=== PATIENT | female | born 1950 | race Caucasian/White ===

== ENCOUNTER 2020-02-12 16:22 | IRF | payer MEDICARE, MEDICAID, SELFPAY ==
--- NOTE | ~2020-02-12 | XR_ITS ---
EXAMINATION: XR chest 1V portable DATE: 02/26/2020 03:57 INDICATION: Tachypnea. Fever. Leukocytosis. TECHNIQUE: A single frontal view of the chest was obtained. COMPARISON: Chest 2 views 02/25/2020, chest CT 02/19/2020 FINDINGS: There are airspace opacities in right mid and lower lung zones and left lower lung zone. Th ere is a small right pleural effusion. There is a prominent left paracardial fat pad. No pneumothorax . Cardiomegaly is noted. IMPRESSION: 1. Unchanged airspace opacities in right mid and lower lung zones and left lower lung zone, likely at electasis. Pneumonia is less likely. 2. Unchanged small right pleural effusion. 3. Cardiomegaly. Reviewed, dictated and finalized at location A. IMPRESSION: 1. Unchanged airspace opacities in right mid and lower lung zones and left lowe r lung zone, likely atelectasis. Pneumonia is less likely. 2. Unchanged small right pleural effusion. 3. Cardiomegaly.
--- NOTE | ~2020-02-12 | XR_ITS ---
EXAMINATION: XR chest 1V portable DATE: 02/17/2020 13:55 INDICATION: Chest pain and shortness of breath TECHNIQUE: frontal view of the chest was obtained. COMPARISON: CT dated 04/07/2008 FINDINGS: Elevation of the left hemidiaphragm with bandlike discoid atelectasis at the lateral left lower lung zone. No pulmonary edema, pleural effusion or pneumothorax. Cardiomediastinal silhouette is within no rmal limits for AP technique. There is pulmonary vascular congestion. Ovoid density cephalad to the r ight mainstem bronchus suggesting a dilated azygos vein although differential would include lymphaden opathy. IMPRESSION: 1. Discoid atelectasis at the left lung base with elevation of the left hemidiaphragm. 2. Inferior right paratracheal opacity which could represent a dilated azygos vein or enlarged lymph node which could be either reactive or metastatic. Correlate clinically for corresponding jugular wilfredo ous distention. If indicated CT could be obtained for more definitive determination. Reviewed, dictated and finalized at location A. IMPRESSION: 1. Discoid atelectasis at the left lung base with elevation of the left hemidia phragm. 2. Inferior right paratracheal opacity which could represent a dilated azygos v ein or enlarged lymph node which could be either reactive or metastatic. Correl ate clinically for corresponding jugular venous distention. If indicated CT cou ld be obtained for more definitive determination.
--- NOTE | ~2020-02-12 | CT_ITS ---
EXAMINATION: CT chest abdomen w con INDICATION: Abnormal chest x-ray TECHNIQUE: Computed tomographic images of the chest and abdomen were obtained after the administratio n of 100 cc of Omnipaque 350 intravenous contrast. The dose-length product (DLP) was 1277.70 mGy-cm. Automated exposure control and iterative reconstruction technique were employed. COMPARISON: None FINDINGS: CHEST: There are no pathologically enlarged thoracic lymph nodes. The azygos vein calcified the chest radiographic finding in question. There is a small right pleural effusion. There is passive atelecta sis of the lower lobes as well as subsegmental atelectasis of the left lower lobe which is seen on th e chest radiograph. Cardiomegaly is noted. There is calcified coronary artery atherosclerosis. ABDOMEN: Punctate calcifications in otherwise normal appearing liver and spleen likely represent heal ed granulomatous disease. The pancreas, gallbladder, and adrenal glands are normal. Cysts of the left kidney measure up to 5 cm. A 7 mm hypoattenuating lesion of the right kidney is too small to charact erize but likely represents a cyst. There are no pathologically enlarged abdominal lymph nodes. An en doluminal stent is noted in the right common iliac vein. There is liquid stool throughout much of the visualized colon. There is an age indeterminate burst fracture of T7. IMPRESSION: 1. Azygous vein accounting for the chest radiographic finding in question. 2. Small right pleural effusion. 3. Bilateral dependent atelectasis. 4. Cardiomegaly. 5. Age-indeterminate T7 burst fracture. 6. Liquid stool in the colon suggestive of diarrhea. Reviewed, dictated and finalized at location A.
--- NOTE | ~2020-02-12 | XR_ITS ---
EXAMINATION: XR abdomen obstructive series EXAM DATE: 02/25/2020 14:34 INDICATION: Bowel distention. TECHNIQUE: Frontal upright projection of the upper abdomen, frontal projection of the lower abdomen f or interpretation. Correlation is made to CT 08/21/2020. Correlation was made with CT chest abdomen .. FINDINGS: There is severely distended air-filled ascending and transverse colon, with only small amou nt of descending colon and sigmoid colonic gas. Probably interval increase in distention compared to the timber framer image from patient's CT scan on 02/19/2020. No evidence of free intraperitoneal gas. No orga nomegaly. No small bowel dilation. Right iliac stent. IMPRESSION: Some progression in now severely distended ascending ascending, transverse colons with sm all amount of descending colonic, sigmoid gas. Most likely colonic ileus correlating with CT scan. Reviewed, dictated and finalized at location A. IMPRESSION: Some progression in now severely distended ascending ascending, tra nsverse colons with small amount of descending colonic, sigmoid gas. Most likel y colonic ileus correlating with CT scan.
--- NOTE | ~2020-02-12 | XR_ITS ---
EXAMINATION: XR abdomen obstructive series DATE: 02/26/2020 09:15 INDICATION: Bowel distention. TECHNIQUE: Upright and supine views of the abdomen on 4 radiographs were obtained. COMPARISON: CT abdomen and pelvis 02/19/2020, abdomen radiographs 02/25/2020 FINDINGS: There is gaseous distention of the colon. There are no dilated loops of small bowel. There is a stent in right common iliac vein. No free intraperitoneal gas. Cardiomegaly is noted. IMPRESSION: 1. Persistent gaseous distention of the colon, likely adynamic ileus. Reviewed, dictated and finalized at location A.
--- NOTE | ~2020-02-12 | XR_ITS ---
XR chest 2V DATE: 02/25/2020 11:29 INDICATION: Shortness of breath TECHNIQUE: AP and lateral views. The lateral view is limited due to inability to raise the left arm COMPARISON: 02/19/2020 CT thorax FINDINGS: Cardiomegaly. Mild right pleural effusion. There is mild infiltrate or atelectasis in the r ight mid and both lower lung zones. The fissures appear prominent pulmonary vascularity however appea rs within normal limits. There is probably gaseous distention of the transverse colon and flexures. Diffuse osteopenia. Old right surgical neck humeral healed fracture. IMPRESSION: Cardiomegaly Mild infiltrates or atelectasis in right mid and both lower lung zones. Small right pleural effusion Reviewed, dictated and finalized at location A. IMPRESSION: Cardiomegaly Mild infiltrates or atelectasis in right mid and both lower lung zones. Small r ight pleural effusion
[2020-02-12 16:45] VITALS: BP 134/72; PULSE 112; RESP 20; TEMP 36.9; O2SAT 100
--- NOTE | 2020-02-12 17:13 | PC.NURSE ---
This patient, Trina Larkin, was admitted to [facility] Room 220-01. Patient/family oriented to hospital policies and general routines including ID bracelet, bed and alarms, visiting hours, pain management, procedures, bathroom and other care routines, personal items, smoking policy, room service/diet, and visiting hours. Valuables list has been completed. Information on how to activate the Rapid Response Team has been discussed. Patient/Family are encouraged to report perceived risks to care and to ask questions if they do not understand what they are told or what they should do.
--- NOTE | 2020-02-12 17:14 | PC.NURSE ---
Dr Bhat notified of admission. Meds and previous instructions/orders reviewed with him. I advised of purulent drainage from right antecubital fossa (appears to be previous IV site). Orders received.
[2020-02-12] MEDS: NEOMYCIN/POLYMYXIN/BACITRACIN OINTMENT 15 GM TUBE 1 APPLIC TOPICAL (18:05)
[2020-02-12 18:33] VITALS: BMI 51.5
[2020-02-12 21:00] VITALS: PULSE 116
[2020-02-12] MEDS: SIMVASTATIN 20 MG TABLET PO (21:00)
[2020-02-12] MEDS: METOPROLOL TARTRATE 12.5 MG TABLET PO (21:00)
[2020-02-12 22:00] VITALS: BP 126/73; PULSE 116; RESP 20; TEMP 37.4; O2SAT 98
[2020-02-12 23:00] VITALS: PULSE 120
[2020-02-13 06:00] VITALS: BP 129/79; PULSE 116; RESP 20; TEMP 36.9; O2SAT 95
[2020-02-13 06:29] LABS: Blood Urea Nitrogen 14 mg/dL (7-17); Calcium 8.5 mg/dL (8.4-10.2); Carbon Dioxide 30 mmol/L (22-30); Chloride 98 mmol/L (98-107); Estimated CRCL calculation 76 ml/min; Estimated Glomerular Filt Rate > 60; Glucose 115 mg/dL (65-105); Potassium 4.9 mmol/L (3.4-5.0); Sodium 130 mmol/L (137-145)
[2020-02-13 09:47] VITALS: PULSE 116
[2020-02-13] MEDS: FUROSEMIDE 10 MG TABLET PO (09:47)
[2020-02-13] MEDS: FERROUS SULFATE 324 MG TABLET PO (09:47)
[2020-02-13] MEDS: CHOLECALCIFEROL 1,000 UNIT TABLET 1000 UNITS PO (09:47)
[2020-02-13] MEDS: METOPROLOL TARTRATE 12.5 MG TABLET PO ×2 (09:47→20:32)
[2020-02-13] MEDS: NEOMYCIN/POLYMYXIN/BACITRACIN OINTMENT 15 GM TUBE 1 APPLIC TOPICAL ×2 (09:49→17:04)
[2020-02-13] MEDS: polyethylene glycoL 3350 17 GM POWD.PACK PO (09:49)
[2020-02-13] MEDS: APIXABAN 5 MG TABLET PO ×2 (09:49→17:03)
--- NOTE | 2020-02-13 11:10 | WPDREHABHP ---
H&P: HPI History of Present Illness Chief complaint: T6 fx/ L4 fx/ left humerus fx Narrative: Trina Larkin is a 69 year old female HISTORY OF PRESENT ILLNESS: The patient's primary rehab impairment category is major multiple trauma without brain or spinal injury The etiologic diagnosis is comminuted left humerus fracture, T6 compression fracture, L4 compression fracture I saw this patient [id number] on February 13, 2020 at 9:38 a.m. The patient is a 69-year-old right-handed woman with a past medical history of congestive heart failure, hypertension, deep venous thrombosis and atrial fibrillation along with the venous stasis changes of the right lower extremity for many many years who presented to [facility] on February 07, 2020 after suffering a fall from standing. Imaging demonstrated a left humerus fracture and T6 fracture. She was transferred to [facility] the same day for further evaluation and management. Orthopedic surgery and Neurosurgery were consulted. Neurosurgery was consulted for the spinal fractures and recommended no acute surgical intervention on order a TLSO brace to be worn when out of bed. She is to follow up with the physician in 6 weeks with repeat x-ray of her thoracic spine. Orthopedic surgery was consult for the left humerus fracture and also recommended no acute surgical intervention. She was made nonweightbearing to the left upper extremity to the extent that she should not move on the shoulder area and also was given a sling for comfort she is to follow up with the orthopedic physician 2 weeks in the [facility] ortho [facility] clinic ( this appointment has not been made at present closed). Generating Medicine was consulted to review reason for fall and attributed the fall to over diuresis. The wound nurse was consulted for the right lower extremity venous stasis dermatitis and recommended a treatment plan ( this is noted in the status section of the screen close) the patient is discharged to us on Eliquis for DVT prophylaxis Therapy was initiated at the acute care facility and the patient transferred to us from [facility] on February 12, 2020 on FALLS OR SURGERIES: The patient has had major surgeries in the 100 days prior to admission ( ventral hernia repair on December 26, 2019 ) closed.. They had falls in the past year. They had falls with injury in the past year. PAST MEDICAL HISTORY: DVT, hypertension, hypercholesterolemia, obesity, congestive heart failure, atrial fibrillation. PAST SURGICAL HISTORY: Ventral hernia repair about a month ago SOCIAL HISTORY: the patient lives with her adult son in a 1 level home with 4 steps to enter. She was independent with driving prior. She uses no assistive device. Her son is available to assist her following rehab if necessary. She has never a smoker no alcohol or drug use FAMILY HISTORY: father with diabetes type 2 PRIOR LEVEL OF FUNCTION: Eating was INDEPENDENT Oral Care was INDEPENDENT Toileting Hygiene was INDEPENDENT Shower/Bathing was INDEPENDENT Upper Body Dressing was INDEPENDENT Lower Body Dressing was INDEPENDENT Donning/[place] Footwear was INDEPENDENT Rolling Left and Right was INDEPENDENT Sit to Lying was INDEPENDENT Lying to Sitting was INDEPENDENT Sit to Stand was INDEPENDENT Bed to Chair Transfers was INDEPENDENT Toilet Transfers was INDEPENDENT Walking was INDEPENDENT >500 feet with NO DEVICE Wheelchair Mobility was NOT APPLICABLE PRIOR TO ADMISSION Stairs were INDEPENDENT CURRENT LEVEL OF FUNCTION: Eating was independent Oral Care was supervision or touches stents Toileting Hygiene was substantial/maximal assistance Shower/Bathing was substantial/maximal assist Upper Body Dressing was partial/moderate assistance Lower Body Dressing was substantial/maximal assistance Donning/[place] Footwear was substantial maximal assistance Rolling Left and Right was
[2020-02-13 11:50] VITALS: BMI 51.5
[2020-02-13 13:03] LABS: Basophils Percent Auto 0.2 % (0.2-1.2); Eosinophils Absolute Auto 0.1 K/mm3 (0-0.3); Eosinophils Percent Auto 0.8 % (0-4.4); Hematocrit 35.9 % (37.0-47.0); Hemoglobin 10.3 g/dL (12.0-15.0); Immature Granulocyte Absolute 0.04 K/mm3 (0.00-0.031); Immature Granulocyte Percent A 0.6 % (0-0.5); Lymphocytes Absolute Auto 0.72 K/mm3 (0.9-3.2); Lymphocytes Percent Auto 11.2 % (18.3-44.2); Mean Corpuscular HGB Conc 28.7 g/dl (32-36); Mean Corpuscular Hemoglobin 28.2 pg (26-34); Mean Corpuscular Volume 98.4 fl (80-100); Mean Platelet Volume 9.6 fl (7.4-10.4); Monocytes Absolute Auto 0.8 K/mm3 (0.1-0.6); Monocytes Percent Auto 12.6 % (2.6-8.5); Neutrophils Absolute Auto 4.8 K/mm3 (1.3-6.7); Neutrophils Percent Auto 74.6 % (45.5-73.1); Platelet Count Result 236 k/mm3 (150-375); Red Blood Count 3.65 M/mm3 (4.2-5.4); White Blood Count 6.4 K/mm3 (4.5-10.0)
[2020-02-13 14:00] VITALS: BP 123/57; PULSE 119; RESP 20; TEMP 37.6; O2SAT 98
--- NOTE | 2020-02-13 14:33 | PC.NURSE ---
Noted temperature elevation of 100.4. Call placed to Dr Roger to advise . Patient denies SOB/chest pain, cough, or being exposed to anyone with flu or suspected COVID 19. Noted wound culture results from right antecubital taken on admission. Will report to Rajeev Carrasco when he calls back.
[2020-02-13] MEDS: FLUCONAZOLE 100 MG TABLET PO (14:42)
[2020-02-13] MEDS: TOLNAFTATE 1% POWDER 45 GM BTL 1 APPLIC TOPICAL ×2 (14:42→20:31)
--- NOTE | 2020-02-13 14:45 | PC.NURSE ---
Dr Roger returned call and status report given including wound culture results and elevated temp off 100.4 - orders.
[2020-02-13] MEDS: ACETAMINOPHEN 325 MG TABLET 650 MG PO (15:01)
[2020-02-13] MEDS: LINEZOLID 600 MG TABLET PO ×2 (15:12→20:32)
[2020-02-13 16:57] VITALS: TEMP 37.7
--- NOTE | 2020-02-13 19:36 | PC.NURSE ---
put antifungal cream on right lower leg and mepilex transfer on non scabbed suhail which took 2 sheets. Then wrapped in loose 4 inch odilon gauze over mepilex transfer shhets cut to shape. Patient tolerated well.
[2020-02-13 20:32] VITALS: PULSE 112
[2020-02-13] MEDS: SIMVASTATIN 20 MG TABLET PO (20:32)
[2020-02-13 22:00] VITALS: BP 138/67; PULSE 86; RESP 19; TEMP 36.4; O2SAT 97
[2020-02-14 02:00] VITALS: TEMP 37.1
[2020-02-14 05:09] LABS: Basophils Percent Auto 0.5 % (0.2-1.2); Eosinophils Absolute Auto 0.2 K/mm3 (0-0.3); Eosinophils Percent Auto 2.7 % (0-4.4); Hematocrit 30.4 % (37.0-47.0); Immature Granulocyte Absolute 0.02 K/mm3 (0.00-0.031); Immature Granulocyte Percent A 0.3 % (0-0.5); Lymphocytes Percent Auto 22.1 % (18.3-44.2); Mean Corpuscular HGB Conc 29.6 g/dl (32-36); Mean Corpuscular Hemoglobin 27.9 pg (26-34); Mean Corpuscular Volume 94.1 fl (80-100); Mean Platelet Volume 9.9 fl (7.4-10.4); Monocytes Absolute Auto 1.2 K/mm3 (0.1-0.6); Monocytes Percent Auto 20.8 % (2.6-8.5); Neutrophils Absolute Auto 3.1 K/mm3 (1.3-6.7); Neutrophils Percent Auto 53.6 % (45.5-73.1); Platelet Count Result 237 k/mm3 (150-375); Red Blood Count 3.23 M/mm3 (4.2-5.4); White Blood Count 5.9 K/mm3 (4.5-10.0)
[2020-02-14 06:00] VITALS: BP 116/57; PULSE 83; RESP 19; TEMP 36.5; O2SAT 97
[2020-02-14 06:38] LABS: Anisocytosis 1+ (NORMAL); Platelet Estimate Adequate (Adequate)
[2020-02-14] MEDS: APIXABAN 5 MG TABLET PO ×2 (08:35→19:24)
[2020-02-14 08:36] VITALS: PULSE 83
[2020-02-14] MEDS: CHOLECALCIFEROL 1,000 UNIT TABLET 1000 UNITS PO (08:36)
[2020-02-14] MEDS: LINEZOLID 600 MG TABLET PO ×2 (08:36→20:07)
[2020-02-14] MEDS: METOPROLOL TARTRATE 12.5 MG TABLET PO ×2 (08:36→20:04)
[2020-02-14] MEDS: FLUCONAZOLE 100 MG TABLET PO (08:36)
[2020-02-14] MEDS: FERROUS SULFATE 324 MG TABLET PO (08:36)
[2020-02-14] MEDS: FUROSEMIDE 10 MG TABLET PO (08:36)
[2020-02-14] MEDS: polyethylene glycoL 3350 17 GM POWD.PACK PO (08:37)
--- NOTE | 2020-02-14 11:46 | WPDNEURORHBP ---
Subjective Date/time seen: 02/14/20 11:46 Interval history: This 69-year-old woman is here because of major multiple trauma without brain or spinal injury. She has left-sided comminuted humerus fracture for which she is in the sling T6 compression fracture, L4 compression fracture for which she is in TLSO next Patient also has significant cardiac history including congestive heart failure hypertension deep venous thrombosis in atrial fibrillation for which she is on anticoagulation. The patient had low-grade temperature yesterday and apparently the etiology is a little fussy discharge at the right antecubital fossa where the IV line was and we have started him on a Zyvox she is also on Diflucan as per recommendation of the wound care nurse for the long-standing venous status insufficiency of the right lower extremity dermatitis and doing fairly well she denies any fever chills sore throat headache nausea vomiting shortness of breath Review of Systems Review of Systems: All systems reviewed & are unremarkable except as noted in HPI and below Functional Status Ambulation Ability Ability to Ambulate 10 Feet: Minimum Assistance X 1 Ability to Ambulate 50 Feet With 2 Turns: Minimum Assistance X 1 Ability to Ambulate 150 Feet: Minimum Assistance X 1 Ambulation Assistive Devices: Hand Hold Transfers Ability Ability to Transfer In/Out of Chair: Minimum Assistance X 1 Exam Const: General: comfortable and no acute distress HENMT: General nose exam: Normal nares present Mouth: Yes moist mucous membranes Eyes: General: appearance normal, both eyes and all related structures Neck: Neck: supple and no JVD Resp: Effort & Inspection: normal respiratory effort Auscultation: clear to auscultation bilaterally Cardio: Rate: regular rate Rhythm: regular rhythm GI: GI Palp: Yes Soft to palpation Auscultation: normal bowel sounds Skin: General skin exam: normal color and no rashes or lesions noted Neuro: Other: patient is awake alert and well oriented time place and person has a normal speech and language function normal cranial examination the limitation of the left upper extremities clearly noted due to humerus fracture she has difficulty performing the activities of daily living due to significant obesity multiple fractures and Extrem: General: normal to inspection Psych: Mental Status: mental status grossly normal Objective Data Vital Signs Vital Signs: Vital Signs - 24 hr 02/13/20 14:00 02/13/20 16:57 02/13/20 20:32 Temperature 37.6 C 37.7 C H Pulse Rate 119 H 112 H Respiratory Rate 20 Blood Pressure 123/57 L Pulse Oximetry 98 02/13/20 22:00 02/14/20 02:00 02/14/20 06:00 Temperature 36.4 C L 37.1 C 36.5 C Pulse Rate 86 83 Respiratory Rate 19 19 Blood Pressure 138/67 116/57 L Pulse Oximetry 97 97 02/14/20 08:36 Temperature Pulse Rate 83 Respiratory Rate Blood Pressure Pulse Oximetry Intake/Output Intake/Output: Intake & Output 02/11/20 02/12/20 02/13/20 02/14/20 23:59 23:59 23:59 23:59 Intake Total 240 720 480 Balance 240 720 480 Meds/Results Medications: Active Medications Generic Name Dose Route Start Last Admin Trade Name Freq PRN Reason Stop Dose Admin Acetaminophen 650 mg 02/13/20 14:44 02/13/20 15:01 Tylenol Tablet PO 650 mg Q4H PRN Administration Fever >101 Hydrocodone Bitart/Acetaminophen 1 tab 02/12/20 17:50 02/14/20 11:16 [place] 5-325 Mg PO 1 tab Q4H PRN Administration Pain Albuterol 2 puff 02/12/20 18:35 Proventil Hfa INHALATION Q6H PRN Shortness Of Breath Apixaban 5 mg 02/13/20 09:00 02/14/20 08:35 Eliquis PO 5 mg BID DEWAYNE Administration Ferrous Sulfate 324 mg 02/13/20 09:00 02/14/20 08:36 Ferrous Sulfate PO 324 mg DAILY DEWAYNE Administration Fluconazole 100 mg 02/13/20 09:00 02/14/20 08:36 Diflucan Tablet PO 02/26/20 09:01 100 mg QAM DEWAYNE Administration Furosemide 10 mg 01/21
[2020-02-14 14:00] VITALS: BP 137/93; PULSE 76; RESP 20; TEMP 36.7; O2SAT 95
--- NOTE | 2020-02-14 16:18 | RPD ---
INDIVIDUALIZED PLAN OF CARE FOR Trina Larkin Brief Synthesis of Pre-Admission Screen, Post-Admission Evaluation and Therapy Evaluations: The patient presents to rehab with Major Multiple Trauma Without Brain or Spinal Injury-Comminuted left humerus fracture, T6 compression fracture, L4 compression fracture. Comorbidities include Hypertension, deep venous thrombosis, hypercholesterolemia, obesity, atrial fibrillation, acute pain, congestive heart failure, BLE edema, right lower extremity venous stasis dermatitis, coccyx pressure ulcer stage 1, excoriation to folds. The patient requires physician services for medical oversight, management of postop complications in setting of present comorbidities, and pain management. Labs will be drawn to monitor blood counts and electrolytes periodically. The patient requires nursing services for DVT prophylactics, infection protection, medication management and education, pressure relief, and wound care. Deficits include: ADLs, Balance, Endurance, Mobility, Pain Management, ROM, Safety, Strength, Transfers Potato [employer] Processing Supervisor/Case Management for: Discharge Planning and Patient/Family Counseling Physical Therapy: 5 days per week for 90 minutes. Treatments may include: Therapeutic Exercise, Gait Training, Neuromuscular Re-education, Transfer Training, Community Reintegration, Bed Mobility, Patient/Family Education, Wheelchair Mobility Group Therapy/Concurrent Therapy Rationales: -Improve attention span during functional activities in a distracted environment. -Enhance problem solving and/or adequate judgment skills during functional activities in a distracted environment. -Promote increased safety awareness in a distracted environment to reduce fall risk with functional tasks, transfers, and ambulation to allow a more safe, self-sufficient return to the home environment. -Improve dynamic balance skills to promote safety and independence with functional activities in a distracted environment for maximum gain. Occupational Therapy: 5 days per week for 90 minutes. Treatments may include: Therapeutic Exercise, Therapeutic Activity, Cognitive Training, Self-Care Transfer Training, Community Reintegration, Home Management, Patient/Family Education, Wheelchair Mobility Training, Energy Conservation Training Group Therapy/Concurrent Therapy Rationales: -Allow therapist to observe and teach generalization and carry-over of skills learned in individual therapy. -Enhance problem solving and sequencing skills during therapeutic activities in a distracted environment. -Promote increased safety awareness in a realistic setting to reduce fall risk with functional tasks due to visual and verbal distractions. -Increase functional level with ADLs, ADL transfers and use of adaptive equipment through therapeutic activities with others while promoting safety to allow a more safe, self-sufficient return home. Medical Prognosis: Good Anticipated Length of Stay: 12 days Rehab Goals: Eating Goal: 06-Independent Oral Hygiene Goal: 06-Independent Toileting Hygiene Goal: 02-Substantial/Maximal Assistance Shower/Bathe Self Goal: 03-Partial/Moderate Assistance Upper Body Dressing Goal: 02-Substantial/Maximal Assistance Lower Body Dressing Goal: 03-Partial/Moderate Assistance Putting On/Taking Off Footwear Goal: 03-Partial/Moderate Assistance Rolling Left and Right Goal: 06-Independent Sit to Lying Goal: 03-Partial/Moderate Assistance Lying to Sitting on Side of Bed Goal: 03-Partial/Moderate Assistance Sit to Stand Goal: 06-Independent Chair/Pwl-hb-Loovc Transfer Goal: 06-Independent Toilet Transfer Goal: 04-Supervision or Touching Assistance Car Transfer Goal: 06-Independent Walk 10' Goal: 06-Independent Walk 50' with Two Turns Goal: 06-Independent Walk 150' Goal: 06-Independent Walk 10' on Uneven Surface Goal: 06-Independent 1 Step (Curb) Goal: 06-Independent 4 Steps Goal: 06-Independent 12 Steps Goal Score: 06-Independent Picking Up Object Goa
[2020-02-14] MEDS: TOLNAFTATE 1% POWDER 45 GM BTL 1 APPLIC TOPICAL ×2 (19:25→20:10)
[2020-02-14] MEDS: NEOMYCIN/POLYMYXIN/BACITRACIN OINTMENT 15 GM TUBE 1 APPLIC TOPICAL ×2 (19:26→19:38)
--- NOTE | 2020-02-14 19:28 | PC.NURSE ---
all dressings changed at 14:30 but were charted late.
[2020-02-14 20:04] VITALS: PULSE 68
[2020-02-14] MEDS: SIMVASTATIN 20 MG TABLET PO (20:08)
[2020-02-14 21:36] VITALS: BP 107/59; PULSE 77; RESP 20; TEMP 36.5; O2SAT 100
[2020-02-15 06:00] VITALS: BP 139/80; PULSE 87; RESP 20; TEMP 36.7; O2SAT 99
[2020-02-15] MEDS: FUROSEMIDE 10 MG TABLET PO (08:55)
[2020-02-15] MEDS: APIXABAN 5 MG TABLET PO ×2 (08:55→18:02)
[2020-02-15] MEDS: FERROUS SULFATE 324 MG TABLET PO (08:55)
[2020-02-15] MEDS: FLUCONAZOLE 100 MG TABLET PO (08:55)
[2020-02-15] MEDS: CHOLECALCIFEROL 1,000 UNIT TABLET 1000 UNITS PO (08:55)
[2020-02-15] MEDS: LINEZOLID 600 MG TABLET PO (08:56)
[2020-02-15 08:57] VITALS: PULSE 87
[2020-02-15] MEDS: polyethylene glycoL 3350 17 GM POWD.PACK PO (08:57)
[2020-02-15] MEDS: METOPROLOL TARTRATE 12.5 MG TABLET PO ×2 (08:57→20:23)
[2020-02-15] MEDS: NEOMYCIN/POLYMYXIN/BACITRACIN OINTMENT 15 GM TUBE 1 APPLIC TOPICAL ×2 (08:58→18:02)
[2020-02-15] MEDS: TOLNAFTATE 1% POWDER 45 GM BTL 1 APPLIC TOPICAL ×2 (08:58→20:24)
--- NOTE | 2020-02-15 11:05 | WPDNEURORHBP ---
Subjective Date/time seen: 02/15/20 11:05 Interval history: This 69-year-old morbidly obese white woman is here on the acute rehab after having and left humeral fracture / T6 fracture / L4 fracture. Patient is not really any fever anymore she denies any fever chills sore throat nausea and vomiting she does have a longstanding venous stasis dermatitis of her right lower extremity for which the wound Care Nursing has recommended Diflucan for which she is on she also has a small cellulitic area at the right antecubital fossa for which is I walks is being given the culture is growing Staphylococcus and the sensitivity results are pending The patient pain is under control and she is doing very well in rehab without any new symptoms. Review of Systems Review of Systems: All systems reviewed & are unremarkable except as noted in HPI and below Functional Status Ambulation Ability Ability to Ambulate 10 Feet: Minimum Assistance X 1 Ability to Ambulate 50 Feet With 2 Turns: Minimum Assistance X 1 Ability to Ambulate 150 Feet: Minimum Assistance X 1 Ambulation Assistive Devices: Hand Hold Transfers Ability Ability to Transfer In/Out of Chair: Minimum Assistance X 1 Exam Const: General: comfortable and no acute distress HENMT: General nose exam: Normal nares present Mouth: Yes moist mucous membranes Eyes: General: appearance normal, both eyes and all related structures Neck: Neck: supple and no JVD Resp: Effort & Inspection: normal respiratory effort Auscultation: clear to auscultation bilaterally Cardio: Rate: regular rate Rhythm: regular rhythm GI: GI Palp: Yes Soft to palpation Auscultation: normal bowel sounds Skin: Other: The small cellulitic area at the right antecubital fossa is improving is well dressed and no significant drainage is noted Likewise the venous stasis dermatitis of the right lower extremity is stable and is being dressed daily Neuro: Other: patient's overall strength is improving she is awake alert will oriented to time place person has normal speech and language function normal cranial examination whatever disability she is having is the result of the nonweightbearing status of the left upper extremity due to humeral fracture and also T6 fracture and L4 fracture Extrem: General: normal to inspection Psych: Mental Status: mental status grossly normal Objective Data Vital Signs Vital Signs: Vital Signs - 24 hr 02/14/20 14:00 02/14/20 20:04 02/14/20 21:36 Temperature 36.7 C 36.5 C Pulse Rate 76 68 77 Respiratory Rate 20 20 Blood Pressure 137/93 H 107/59 L Pulse Oximetry 95 100 02/15/20 06:00 02/15/20 08:57 Temperature 36.7 C Pulse Rate 87 87 Respiratory Rate 20 Blood Pressure 139/80 Pulse Oximetry 99 Intake/Output Intake/Output: Intake & Output 02/12/20 02/13/20 02/14/20 02/15/20 23:59 23:59 23:59 23:59 Intake Total 240 720 960 360 Balance 240 720 960 360 Meds/Results Medications: Active Medications Generic Name Dose Route Start Last Admin Trade Name Freq PRN Reason Stop Dose Admin Acetaminophen 650 mg 02/13/20 14:44 02/13/20 15:01 Tylenol Tablet PO 650 mg Q4H PRN Administration Fever >101 Hydrocodone Bitart/Acetaminophen 1 tab 02/12/20 17:50 02/15/20 05:56 [place] 5-325 Mg PO 1 tab Q4H PRN Administration Pain Albuterol 2 puff 02/12/20 18:35 Proventil Hfa INHALATION Q6H PRN Shortness Of Breath Apixaban 5 mg 02/13/20 09:00 02/15/20 08:55 Eliquis PO 5 mg BID DEWAYNE Administration Ferrous Sulfate 324 mg 02/13/20 09:00 02/15/20 08:55 Ferrous Sulfate PO 324 mg DAILY DEWAYNE Administration Fluconazole 100 mg 02/13/20 09:00 02/15/20 08:55 Diflucan Tablet PO 02/26/20 09:01 100 mg QAM DEWAYNE Administration Furosemide 10 mg 02/13/20 09:00 02/15/20 08:55 Lasix Tablet PO 10 mg QAM DEWAYNE Administration Linezolid 600 mg 02/13/20 14:50 02/15/20 08:56 Zyvox PO 600 mg Q12HR DEWAYNE
[2020-02-15 14:00] VITALS: BP 136/99; PULSE 85; RESP 20; TEMP 36.9; O2SAT 99
[2020-02-15 20:23] VITALS: PULSE 80
[2020-02-15] MEDS: SIMVASTATIN 20 MG TABLET PO (20:23)
[2020-02-15 22:03] VITALS: BP 124/66; PULSE 80; RESP 18; TEMP 36.7; O2SAT 100
[2020-02-16 05:40] VITALS: BP 107/59; PULSE 106; RESP 20; O2SAT 95
[2020-02-16] MEDS: CHOLECALCIFEROL 1,000 UNIT TABLET 1000 UNITS PO (08:36)
[2020-02-16] MEDS: APIXABAN 5 MG TABLET PO ×2 (08:36→17:41)
[2020-02-16 08:37] VITALS: PULSE 106
[2020-02-16] MEDS: METOPROLOL TARTRATE 12.5 MG TABLET PO ×2 (08:37→20:06)
[2020-02-16] MEDS: FERROUS SULFATE 324 MG TABLET PO (08:37)
[2020-02-16] MEDS: FLUCONAZOLE 100 MG TABLET PO (08:37)
[2020-02-16] MEDS: FUROSEMIDE 10 MG TABLET PO (08:37)
[2020-02-16] MEDS: polyethylene glycoL 3350 17 GM POWD.PACK PO (08:38)
--- NOTE | 2020-02-16 12:54 | PCDIET ---
Nutrition Follow-Up Complete: Nutrition Diagnosis: Obesity related to history of excessive energy intake/inadequate energy expenditure as evidenced by BMI of 51.5. Nutrition Goal: Patient to consume 75% of meals. Goal met. Patient consuming 100% of most meals on heart healthy diet which is appropriate. Last recorded weight is 127.8 kg. Recommend obtaining new weight. Bowel Motility: Last bowel movement on 02/15/20 x 2. Labs Reviewed: Hgb (9.0), Hct (30.4) Meds Noted: Ferrous Sulfate, Lasix, Miralax, Vitamin D Additional Notes: Abdominal folds with maceration/yeast. No documented pressure ulcers. Will continue to monitor with same goal. Nutrition Monitoring and Evaluation: Follow up every 7 days.
[2020-02-16 14:00] VITALS: BP 118/60; PULSE 102; RESP 20; TEMP 36.6; O2SAT 97
[2020-02-16] MEDS: TOLNAFTATE 1% POWDER 45 GM BTL 1 APPLIC TOPICAL ×2 (15:47→20:06)
[2020-02-16] MEDS: NEOMYCIN/POLYMYXIN/BACITRACIN OINTMENT 15 GM TUBE 1 APPLIC TOPICAL ×2 (15:48→17:42)
--- NOTE | 2020-02-16 16:00 | WPDNEURORHBP ---
Subjective Date/time seen: 02/16/20 16:00 Interval history: this 69-year-old morbidly for his movement is admitted here with multiple fractures including the left humerus, T6 fracture, L4 fracture. She is wearing a sling of the left upper extremity and also wearing a TLSO she does not have any new specific complaints and quite happy with the care she is receiving particularly denies any headache nausea vomiting chest pain showed shortness of breath fever chills or sore throat Review of Systems Review of Systems: All systems reviewed & are unremarkable except as noted in HPI and below Functional Status Ambulation Ability Ability to Ambulate 10 Feet: Contact Guard Ability to Ambulate 50 Feet With 2 Turns: Contact Guard Ability to Ambulate 150 Feet: Minimum Assistance X 1 Ambulation Assistive Devices: Hand Hold Transfers Ability Ability to Transfer In/Out of Chair: Minimum Assistance X 1 Exam Const: General: comfortable and no acute distress HENMT: General nose exam: Normal nares present Mouth: Yes moist mucous membranes Eyes: General: appearance normal, both eyes and all related structures Neck: Neck: supple and no JVD Resp: Effort & Inspection: normal respiratory effort Auscultation: clear to auscultation bilaterally Cardio: Rate: regular rate Rhythm: regular rhythm GI: GI Palp: Yes Soft to palpation Auscultation: normal bowel sounds Skin: General skin exam: normal color and no rashes or lesions noted Neuro: Other: patient is awake May time present person is speech and language functions are normal cranial nerve examination is normal 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 doing 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 and engage in therapy no lateralizing focal or deficit is noted from neurological standpoint apart from the fact she does have fractures and limitation of the weight-bearing Extrem: General: normal to inspection Other: left upper extremity in sling Psych: Mental Status: mental status grossly normal Objective Data Vital Signs Vital Signs: Vital Signs - 24 hr 02/15/20 20:23 02/15/20 22:03 02/16/20 05:40 Temperature 36.7 C Pulse Rate 80 80 106 H Respiratory Rate 18 20 Blood Pressure 124/66 107/59 L Pulse Oximetry 100 95 02/16/20 08:37 02/16/20 14:00 Temperature 36.6 C Pulse Rate 106 H 102 H Respiratory Rate 20 Blood Pressure 118/60 Pulse Oximetry 97 Intake/Output Intake/Output: Intake & Output 02/13/20 02/14/20 02/15/20 02/16/20 23:59 23:59 23:59 23:59 Intake Total 956 379 4021 480 Balance 536 800 4443 480 Meds/Results Medications: Active Medications Generic Name Dose Route Start Last Admin Trade Name Freq PRN Reason Stop Dose Admin Acetaminophen 650 mg 02/13/20 14:44 02/13/20 15:01 Tylenol Tablet PO 650 mg Q4H PRN Administration Fever >101 Hydrocodone Bitart/Acetaminophen 1 tab 02/12/20 17:50 02/16/20 08:42 [place] 5-325 Mg PO 1 tab Q4H PRN Administration Pain Albuterol 2 puff 02/12/20 18:35 Proventil Hfa INHALATION Q6H PRN Shortness Of Breath Apixaban 5 mg 02/13/20 09:00 02/16/20 08:36 Eliquis PO 5 mg BID DEWAYNE Administration Ferrous Sulfate 324 mg 02/13/20 09:00 02/16/20 08:37 Ferrous Sulfate PO 324 mg DAILY DEWAYNE Administration Fluconazole 100 mg 02/13/20 09:00 02/16/20 08:37 Diflucan Tablet PO 02/26/20 09:01 100 mg QAM DEWAYNE Administration Furosemide 10 mg 02/13/20 09:00 02/16/20 08:37 Lasix Tablet PO 10 mg QAM DEWAYNE Administration Metoprolol Tartrate 12.5 mg 02/12/20 21:00 02/16/20 08:37 Lopressor PO 12.5 mg Q12HR DEWAYNE Administration Miconazole Nitrate 1 applic 02/13/20 21:00 02/16/20 15:48 [place]oe [place] TOPICAL 1 applic Q12HR DEWAYNE Administration Neomycin/Polymyxin/Bacitracin 1 applic 02/12/20 17:00 02/16/20 15:48 Triple Antibiotic Ointment TOPICAL 1 applic BID DEWAYNE Administration Polyethylene Glycol 17 gm 02/13/20 09:00 03
[2020-02-16 20:06] VITALS: PULSE 90
[2020-02-16] MEDS: SIMVASTATIN 20 MG TABLET PO (20:06)
[2020-02-16 22:00] VITALS: BP 128/72; PULSE 108; RESP 22; TEMP 36.3; O2SAT 96
[2020-02-17] VITALS (8 sets, daily range): BP systolic 121–148; BP diastolic 78–99; PULSE 84–112; RESP 20–22; TEMP 36.2–38; O2SAT 91–97
[2020-02-17] MEDS: ALBUTEROL SULFATE (*SP) AEROSOL 1 PUFF 2 PUFF INHALATION ×2 (05:08→21:20)
[2020-02-17] MEDS: FLUCONAZOLE 100 MG TABLET PO (08:15)
[2020-02-17] MEDS: CHOLECALCIFEROL 1,000 UNIT TABLET 1000 UNITS PO (08:15)
[2020-02-17] MEDS: FERROUS SULFATE 324 MG TABLET PO (08:15)
[2020-02-17] MEDS: FUROSEMIDE 10 MG TABLET PO (08:15)
[2020-02-17] MEDS: APIXABAN 5 MG TABLET PO ×2 (08:15→17:58)
[2020-02-17] MEDS: polyethylene glycoL 3350 17 GM POWD.PACK PO (08:16)
[2020-02-17] MEDS: METOPROLOL TARTRATE 12.5 MG TABLET PO ×2 (08:16→20:50)
[2020-02-17] MEDS: TOLNAFTATE 1% POWDER 45 GM BTL 1 APPLIC TOPICAL ×2 (08:16→20:47)
[2020-02-17] MEDS: NEOMYCIN/POLYMYXIN/BACITRACIN OINTMENT 15 GM TUBE 1 APPLIC TOPICAL ×2 (08:16→17:58)
--- NOTE | 2020-02-17 12:47 | WPDNEURORHBP ---
Subjective Date/time seen: multiple [id number]/28/20 12:47 Review of Systems Review of Systems: All systems reviewed & are unremarkable except as noted in HPI and below Functional Status Ambulation Ability Ability to Ambulate 10 Feet: Contact Guard Ability to Ambulate 50 Feet With 2 Turns: Contact Guard Ability to Ambulate 150 Feet: Minimum Assistance X 1 Ambulation Assistive Devices: Hand Hold Transfers Ability Ability to Transfer In/Out of Chair: Minimum Assistance X 1 Exam Const: General: comfortable HENMT: Head: normal to inspection and normocephalic Ears: hearing grossly normal bilaterally General nose exam: Normal external nose present Face and sinus: normal facial exam Mouth: Yes Normal oral and palatal mucosa present Eyes: General: appearance normal, both eyes and all related structures Neck: Neck: full ROM Resp: Effort & Inspection: normal respiratory effort Auscultation: clear to auscultation bilaterally Cardio: Rate: regular rate Rhythm: regular rhythm GI: Auscultation: normal bowel sounds Skin: General skin exam: no rashes or lesions noted Neuro: General: patient oriented x3, moves all extremities, no focal motor deficits and CN's II-XI intact bilaterally Cranial nerves: Yes CN's II-XII intact bilaterally, Yes Equal, round and reactive pupils present, Yes Nystagmus not present, Yes Normal facial strength present, Yes Midline tongue present, Yes Symmetric palate elevation present, Yes Normal hearing present and Yes Ability to bilaterally rotate head present Cognition (Neuro): normal cognition Speech: normal speech Deep tendon reflexes (DTR's): Right triceps reflex intensity grade: 1+, Left triceps reflex intensity grade: 1+, Rt Biceps (C5, C6): 1+, Left biceps reflex intensity grade: 1+, Right brachioradialis reflex intensity grade: 1+, Left brachioradialis reflex intensity grade: 1+, Right patellar reflex intensity grade: 1+, Left patellar reflex intensity grade: 1+, Right ankle reflex intensity grade: 1+ and Left ankle reflex intensity grade: 1+ Objective Data Vital Signs Vital Signs: Vital Signs - 24 hr 02/16/20 14:00 02/16/20 20:06 02/16/20 22:00 Temperature 36.6 C 36.3 C L Pulse Rate 102 H 90 108 H Respiratory Rate 20 22 H Blood Pressure 118/60 128/72 Pulse Oximetry 97 96 02/17/20 06:00 02/17/20 08:16 Temperature 36.5 C Pulse Rate 94 94 Respiratory Rate 22 H Blood Pressure 132/78 Pulse Oximetry 97 Intake/Output Intake/Output: Intake & Output 02/14/20 02/15/20 02/16/20 02/17/20 23:59 23:59 23:59 23:59 Intake Total 960 1080 720 120 Balance 960 1080 720 120 Meds/Results Medications: Active Medications Generic Name Dose Route Start Last Admin Trade Name Freq PRN Reason Stop Dose Admin Acetaminophen 650 mg 02/13/20 14:44 02/13/20 15:01 Tylenol Tablet PO 650 mg Q4H PRN Administration Fever >101 Hydrocodone Bitart/Acetaminophen 1 tab 02/12/20 17:50 02/17/20 08:13 [place] 5-325 Mg PO 1 tab Q4H PRN Administration Pain Albuterol 2 puff 02/12/20 18:35 02/17/20 05:08 Proventil Hfa INHALATION 2 puff Q6H PRN Administration Shortness Of Breath Apixaban 5 mg 02/13/20 09:00 02/17/20 08:15 Eliquis PO 5 mg BID DEWAYNE Administration Ferrous Sulfate 324 mg 02/13/20 09:00 02/17/20 08:15 Ferrous Sulfate PO 324 mg DAILY DEWAYNE Administration Fluconazole 100 mg 02/13/20 09:00 02/17/20 08:15 Diflucan Tablet PO 02/26/20 09:01 100 mg QAM DEWAYNE Administration Furosemide 10 mg 02/13/20 09:00 02/17/20 08:15 Lasix Tablet PO 10 mg QAM DEWAYNE Administration Metoprolol Tartrate 12.5 mg 02/12/20 21:00 02/17/20 08:16 Lopressor PO 12.5 mg Q12HR DEWAYNE Administration Miconazole Nitrate 1 applic 02/13/20 21:00 02/17/20 08:16 Aloe [place] TOPICAL 1 applic Q12HR DEWAYNE Administration Neomycin/Polymyxin/Bacitracin 1 applic 02/12/20 17:00 02/17/20 08:16 Triple Antibiotic Ointment TOPICAL
[2020-02-17] MEDS: CYCLOBENZAPRINE HCL 5 MG TABLET PO ×2 (15:10→20:53)
--- NOTE | 2020-02-17 16:03 | PC.NURSE ---
Patient complains of right flank pain and SOB. CXR done, results called to Dr. Bhat who had no new orders at this time with exception of encourage to deep breath and added flexeril Will continue to monitor.
[2020-02-17] MEDS: SIMVASTATIN 20 MG TABLET PO (20:51)
[2020-02-18] VITALS (10 sets, daily range): BP systolic 133–142; BP diastolic 82–98; PULSE 56–118; RESP 19–24; TEMP 36.3–36.5; O2SAT 92–97
[2020-02-18] MEDS: CYCLOBENZAPRINE HCL 5 MG TABLET PO ×3 (06:25→20:22)
[2020-02-18] MEDS: ALBUTEROL SULFATE (*SP) AEROSOL 1 PUFF 2 PUFF INHALATION ×3 (08:49→22:07)
[2020-02-18] MEDS: FLUCONAZOLE 100 MG TABLET PO (09:04)
[2020-02-18] MEDS: CHOLECALCIFEROL 1,000 UNIT TABLET 1000 UNITS PO (09:04)
[2020-02-18] MEDS: FERROUS SULFATE 324 MG TABLET PO (09:04)
[2020-02-18] MEDS: APIXABAN 5 MG TABLET PO ×2 (09:04→17:03)
[2020-02-18] MEDS: METOPROLOL TARTRATE 12.5 MG TABLET PO ×4 (09:05→23:46)
[2020-02-18] MEDS: TOLNAFTATE 1% POWDER 45 GM BTL 1 APPLIC TOPICAL ×2 (09:05→20:24)
[2020-02-18] MEDS: FUROSEMIDE 10 MG TABLET PO ×2 (09:05→14:07)
[2020-02-18] MEDS: NEOMYCIN/POLYMYXIN/BACITRACIN OINTMENT 15 GM TUBE 1 APPLIC TOPICAL ×2 (09:05→17:04)
[2020-02-18] MEDS: polyethylene glycoL 3350 17 GM POWD.PACK PO (09:05)
--- NOTE | 2020-02-18 13:24 | ECG_ITS ---
Measurements Intervals [place] Rate: 114 P: [place]: 0 QRS: -16 QRSD: 104 T: 133 QT: 317 QTc: 437 Interpretive Statements ATRIAL FIBRILLATION WITH RAPID VENTRICULAR RESPONSE VOLTAGE CRITERIA FOR LVH BORDERLINE ST-T WAVE ABNORMALITY- ANTEROLAT/LAT LEADS BASELINE ARTIFACT- I, II, AVR, AVL, AVF, V1 ABNORMAL ECG Electronically Signed On 02-18-2020 14:53:37 CDT by Mike Carrasquillo D.O.
--- NOTE | 2020-02-18 13:34 | PM.IMCN ---
Assessment and Plan Assessment and plan (1) Dyspnea: Code(s): R06.00 - Dyspnea, unspecified Status: Acute Assessment and Plan: Patient has some rhonchi and wheezes. Her chest x-ray shows some pulmonary edema. Plus she has some edema to her lower extremities. I did add extra Lasix for today and double that for tomorrow. Will get an echo to see if she has congestive heart failure. It was listed in her chart that she has congestive heart failure but she does not recall having this diagnosis in the past. Also will get a CT. Patient is already anticoagulated so it is doubtful that the patient will have a PE. (2) Congestive heart failure: Code(s): I50.9 - Heart failure, unspecified Status: Chronic Assessment and Plan: And extra dose of Lasix today. Then double the dose starting tomorrow. I ordered an echo. (3) Atrial fibrillation: Code(s): I48.91 - Unspecified atrial fibrillation Status: Chronic Assessment and Plan: Patient's heart rate is irregular today. Continue with metoprolol. Get an EKG today please. Continue with Eliquis (4) Hypertension: Code(s): I10 - Essential (primary) hypertension Status: Chronic Assessment and Plan: Continue with metoprolol. Increase Lasix (5) Venous stasis dermatitis: Code(s): I87.2 - Venous insufficiency (chronic) (peripheral) Status: Acute Assessment and Plan: She is seeing wound care. She is being treated for cellulitis she is on Bactrim. Also told made as well. She also has triple antibiotic for right AC (6) Closed T6 spinal fracture: Code(s): S22.059A - Unspecified fracture of T5-T6 vertebra, initial encounter for closed fracture Status: Acute Assessment and Plan: Continue with back brace. PT OT. Medications. HPI Data of Consult Consult date: 02/18/20 Requesting Physician: Jh Roger MD Primary Care Provider: Liz MirandaLizzy Consult Narrative Narrative: Trina Larkin is a 69 year old female who is a patient who is in [facility]. We are consulted for medical management. The patient does have a history of congestive heart failure and stated that she has not had an echo about 3 years. The patient is on a low-dose Lasix. The patient stated that when she had her hernia repair about 2 months ago she had a receive an extra dose of Lasix because she was retaining fluid. The patient stated that she was getting rolled around in the bed last night she started to become short of breath. She started wheezing as well. She tells me that she has an inhaler that she typically only uses. She has been on anticoagulation for a history of having a right leg DVT popliteal and also AFib. There was some concern about patient having a PE but she is already anticoagulated. Her chest x-ray was read as discoid atelectasis at the left lung base with elevation the left hemidiaphragm. Inferior right paratracheal [place] which could represent a dilated azygos vein. Or enlarged lymph node which could be either reactive or metastatic. Correlate clinically with corresponding jugular venous distention. If indicated CT would be obtained from more definitive determination. Patient does have some 2+ edema to lower extremities. Date of service 02/18/[address] Roger for this consultation on this patient that is in [facility]. The patient is in [facility] at this time because she sustained a fall on February 07, 2020 from a standing position. Patient which [facility] that time too was transferred to [facility]. The patient has a left humerus fracture which is not operable and she also has a T6 fracture which is also non operable. Review of Systems Review of Systems: All systems reviewed & are unremarkable except as noted in HPI and below Constitutional: Constitutional: Reports as per HPI and Reports no additional constitutional complaints Eyes: Eyes: Reports as per HPI and Reports no
--- NOTE | 2020-02-18 15:10 | PC.NURSE ---
Patient experiencing SOB with and without excertion. Dr. Bhat contacted for a Hospitalist consult regarding abnormal chest xray and increase in SOB. Spoke with Dr. Roe briefly and SYD Lee came to see her. she ordered EKG, ECHO, CT, and extra dose of Lasix 10mg today and start 20mg tomorrow. O2 on for comfort, sats in mid 90's without. Respiratory aware as well. EKG shows Afib with RVR at rate of 114. Luz stated if rate goes 120 or above will need to be transferred to IMU. Will continue to monitor.
--- NOTE | 2020-02-18 15:33 | PC.NURSE ---
Spoke with SYD Velez, about heart rate and nausea, ordered extra dose of metoprolol and zofran, will continue to monitor. Report if heart rate sustains above 120.
[2020-02-18] MEDS: ONDANSETRON HCL ODT 4 MG TABLET PO (17:03)
[2020-02-18] MEDS: SIMVASTATIN 20 MG TABLET PO (20:22)
--- NOTE | 2020-02-18 22:53 | ECG_ITS ---
Measurements Intervals [place] Rate: 116 P: [place]: 0 QRS: -15 QRSD: 94 T: 160 QT: 261 QTc: 364 Interpretive Statements ATRIAL FIBRILLATION WITH RAPID VENTRICULAR RESPONSE VENTRICULAR PREMATURE COMPLEXES EARLY PRECORDIAL R/S TRANSITION VOLTAGE CRITERIA FOR LVH BORDERLINE ST-T WAVE ABNORMALITY- ANTEROLAT/LAT LEADS ABNORMAL ECG Electronically Signed On 02-19-2020 7:20:28 CDT by Mike Carrasquillo D.O.
--- NOTE | 2020-02-18 23:21 | PC.NURSE ---
Pt still appears SOB at rest and heart rate remains irregular. Called placed to hospitalist service. Dr Vega and Luz Tohmas made aware.
[2020-02-19] VITALS (10 sets, daily range): BP systolic 114–147; BP diastolic 59–111; PULSE 86–117; RESP 21–26; TEMP 36.2–37.1; O2SAT 90–100
--- NOTE | 2020-02-19 | ECHO_ITS ---
Patient Info Name: Trina Larkin Age: 69 years : 1950 Gender: Female Ht: 62 in Wt: 280 lbs BSA: 2.44 m2 HR: 111 bpm BP: 144 / 111 mmHg Heart Rhythm: Atrial Fibrillation Technical Quality: Good Exam Date: 02/19/2020 2:05 PM Exam Location: [facility] Patient Status: Inpatient Admit Date: 02/12/2020 Staff Ordering Physician: Luz Thomas NP Knife Cutter: Cong Simpson RDCS, RT Attending Provider: Jh Roger MD Referring Physician: William HORNER; Exam Type: CA echo dop color flow w con Study Info Indications I50.9 - Heart failure, unspecified Complete two-dimensional, color flow and Doppler transthoracic echocardiogram is performed with contrast to opacify the left ventrical and to improve the deliniation of the left ventrical endocarial boarders. Summary 1. Poor quality exam prior to definity injection. 2. Definity contrast injection used to enhance visualization. 3. Left ventricular systolic function is normal, estimated at 50-55%. 4. Mildly sclerotic aortic valve. Left Ventricle Left ventricular chamber dimension is normal. Left ventricular systolic function is normal, estimated at 50-55%. Definity contrast injection used to enhance visualization. Poor quality exam prior to definity injection. Right Ventricle Right ventricular chamber dimension is not well visualized. Left Atria Left atrial chamber dimension is mildly enlarged. Right Atria Right atrial chamber dimension is normal. Aortic Valve The aortic valve is trileaflet. There is mild aortic valve sclerosis. Pulmonic Valve The pulmonic valve is not well visualized. Mitral Valve The mitral valve has normal leaflets. Tricuspid Valve The tricuspid valve leaflets are not well visualized. Pericardium/Pleural The pericardium appears normal. Aorta The aortic root size at the sinus of Valsalva is normal. Left Ventricular Outflow Tract Name Value Normal LVOT 2D LVOT Diameter 1.88 cm LVOT Doppler LVOT Peak Gradient 3 mmHg LVOT Mean Gradient 2 mmHg LVOT VTI 14.21 cm LVOT VTI/AV VTI Ratio 0.69 LVOT Stroke Volume 39.58 ml LVOT CO 5.07 l/min LVOT CI 2.08 L/min/m2 Pulmonic Valve Name Value Normal PV Doppler PV Peak Gradient 5 mmHg Mitral Valve Name Value Normal MV Doppler MV Decel [place] 705.16 cm/s2 MV PHT 0 s MV A
[2020-02-19 04:56] LABS: Basophils Percent Auto 0.1 % (0.2-1.2); Eosinophils Percent Auto 0.1 % (0-4.4); Hematocrit 29.8 % (37.0-47.0); Immature Granulocyte Absolute 0.09 K/mm3 (0.00-0.031); Immature Granulocyte Percent A 0.6 % (0-0.5); Lymphocytes Absolute Auto 0.94 K/mm3 (0.9-3.2); Lymphocytes Percent Auto 6.1 % (18.3-44.2); Mean Corpuscular HGB Conc 30.2 g/dl (32-36); Mean Corpuscular Hemoglobin 28.6 pg (26-34); Mean Corpuscular Volume 94.6 fl (80-100); Mean Platelet Volume 8.9 fl (7.4-10.4); Monocytes Absolute Auto 2.1 K/mm3 (0.1-0.6); Monocytes Percent Auto 13.6 % (2.6-8.5); Neutrophils Absolute Auto 12.3 K/mm3 (1.3-6.7); Neutrophils Percent Auto 79.5 % (45.5-73.1); Platelet Count Result 399 k/mm3 (150-375); Red Blood Count 3.15 M/mm3 (4.2-5.4); White Blood Count 15.5 K/mm3 (4.5-10.0)
[2020-02-19 05:07] LABS: Alanine Aminotransferase 13 U/L (4-35); Albumin Level 3.7 g/dL (3.5-5.1); Alkaline Phosphatase 112 U/L (38-126); Aspartate Amino Transferase 18 U/L (14-36); Bilirubin,Total 1.1 mg/dL (0.2-1.3); Blood Urea Nitrogen 17 mg/dL (7-17); Calcium 9.2 mg/dL (8.4-10.2); Carbon Dioxide 31 mmol/L (22-30); Chloride 95 mmol/L (98-107); Estimated CRCL calculation 62 ml/min; Estimated Glomerular Filt Rate 55; Glucose 130 mg/dL (65-105); Sodium 134 mmol/L (137-145)
[2020-02-19] MEDS: METOPROLOL TARTRATE 25 MG TABLET PO (06:07)
--- NOTE | 2020-02-19 09:16 | WPDNEURORHBP ---
Subjective Date/time seen: 02/19/20 09:16 dyspnea with abnormal xray chest and ekg seen by hospitalist Review of Systems Review of Systems: All systems reviewed & are unremarkable except as noted in HPI and below Functional Status Ambulation Ability Ability to Ambulate 10 Feet: Minimum Assistance X 1 Ability to Ambulate 50 Feet With 2 Turns: Contact Guard Ability to Ambulate 150 Feet: Minimum Assistance X 1 Ambulation Assistive Devices: Hand Hold Transfers Ability Ability to Transfer In/Out of Chair: Minimum Assistance X 1 Exam Const: General: cooperative, comfortable, no acute distress, alert and awake Orientation/consciousness: patient oriented x3 Eyes: General: appearance normal, both eyes and all related structures Neck: Neck: full ROM Chest: Chest palpation & inspection: normal inspection of the chest Resp: Effort & Inspection: normal respiratory effort and able to speak in complete sentences Auscultation: rhonchi and wheezes Cardio: Rate: tachycardic Rhythm: abnormal rhythm GI: Auscultation: normal bowel sounds Skin: General skin exam: no rashes or lesions noted Neuro: General: oriented to time, moves all extremities and no focal motor deficits Cranial nerves: Yes CN's II-XII intact bilaterally, Yes Equal, round and reactive pupils present, Yes Nystagmus not present, Yes Normal facial strength present, Yes Midline tongue present, Yes Symmetric palate elevation present, Yes Ability to bilaterally rotate head present and Yes Ability to bilaterally elevate shoulders present Cognition (Neuro): normal cognition Speech: normal speech Gait exam (Neuro): Unable to assess gait Deep tendon reflexes (DTR's): Right triceps reflex intensity grade: 1+, Left triceps reflex intensity grade: 1+, Rt Biceps (C5, C6): 1+, Left biceps reflex intensity grade: 1+, Right brachioradialis reflex intensity grade: 1+, Left brachioradialis reflex intensity grade: 1+, Right patellar reflex intensity grade: 1+, Left patellar reflex intensity grade: 1+, Right ankle reflex intensity grade: 1+ and Left ankle reflex intensity grade: 1+ Plantar Reflex Responses: downgoing: bilateral Psych: Appearance: grossly normal Objective Data Vital Signs Vital Signs: Vital Signs - 24 hr 02/18/20 14:00 02/18/20 17:04 02/18/20 20:22 Temperature 36.3 C L Pulse Rate 115 H 115 H 88 Respiratory Rate 22 H Blood Pressure 133/98 H Pulse Oximetry 96 02/18/20 21:31 02/18/20 21:34 02/18/20 22:00 Temperature 36.4 C L Pulse Rate 112 H 56 L Respiratory Rate 19 Blood Pressure 137/82 Pulse Oximetry 95 92 02/18/20 23:46 02/19/20 00:38 02/19/20 02:57 Temperature 37.0 C Pulse Rate 118 H 105 H 98 Respiratory Rate 22 H Blood Pressure 114/59 L Pulse Oximetry 98 02/19/20 06:00 02/19/20 06:07 02/19/20 06:25 Temperature 36.2 C L 37.1 C Pulse Rate 117 H 112 H 111 H Respiratory Rate 21 H 22 H Blood Pressure 144/111 H 147/79 H Pulse Oximetry 100 98 Intake/Output Intake/Output: Intake & Output 02/16/20 02/17/20 02/18/20 02/19/20 23:59 23:59 23:59 23:59 Intake Total 720 480 480 Balance 720 480 480 Meds/Results Medications: Active Medications Generic Name Dose Route Start Last Admin Trade Name Freq PRN Reason Stop Dose Admin Acetaminophen 650 mg 02/13/20 14:44 02/13/20 15:01 Tylenol Tablet PO 650 mg Q4H PRN Administration Fever >101 Hydrocodone Bitart/Acetaminophen 1 tab 02/12/20 17:50 02/19/20 02:52 [place] 5-325 Mg PO 1 tab Q4H PRN Administration Pain Albuterol 2 puff 02/12/20 18:35 02/18/20 22:07 Proventil Hfa INHALATION 2 puff Q6H PRN Administration Shortness Of Breath Apixaban 5 mg 02/13/20 09:00 02/18/20 17:03 Eliquis PO 5 mg BID DEWAYNE Administration Cyclobenzaprine HCl 5 mg 02/17/20 14:50 02/19/20 05:38 Flexeril PO Not Given Q8H DEWAYNE Ferrous Sulfate 324 mg 02/13/20 09:00 02/18/20 09:04 Ferrous Sulfate PO 324 mg DAILY
--- NOTE | 2020-02-19 10:00 | PCOTNOTE ---
Patient scheduled to for OT therapy treatment session this morning. Patient had an interrupted session due to Patient is needing an IV placed for some testing. Patient was unable to continue to be seen at this time.
[2020-02-19] MEDS: METOPROLOL TARTRATE 12.5 MG TABLET PO ×2 (10:22→22:28)
[2020-02-19] MEDS: FUROSEMIDE 20 MG TABLET PO (10:22)
[2020-02-19] MEDS: APIXABAN 5 MG TABLET PO ×2 (10:22→17:21)
[2020-02-19] MEDS: FERROUS SULFATE 324 MG TABLET PO (10:23)
[2020-02-19] MEDS: CHOLECALCIFEROL 1,000 UNIT TABLET 1000 UNITS PO (10:23)
[2020-02-19] MEDS: FLUCONAZOLE 100 MG TABLET PO (10:23)
[2020-02-19] MEDS: NEOMYCIN/POLYMYXIN/BACITRACIN OINTMENT 15 GM TUBE 1 APPLIC TOPICAL ×2 (10:23→17:20)
[2020-02-19] MEDS: TOLNAFTATE 1% POWDER 45 GM BTL 1 APPLIC TOPICAL ×2 (10:23→22:34)
--- NOTE | 2020-02-19 10:25 | PCOTNOTE ---
Attempted to see Patient for additional minutes this AM due to having nursing needing to place an IV. Patient is now not available at this time due to going down for some testing. Will try back at a later time.
--- NOTE | 2020-02-19 14:15 | PCOTNOTE ---
Attempted to see Patient for afternoon OT treatment session at this time. Patient is having a test performed in her room at this time. Patient is not available at this time.
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
[2020-02-19] MEDS: PERFLUTREN LIPID MICROSPHERES 1.5 ML VIAL DILUTED TO 10 ML TOTAL VOLUME IV PUSH (14:34)
[2020-02-19] MEDS: CYCLOBENZAPRINE HCL 5 MG TABLET PO ×2 (14:38→22:36)
--- NOTE | 2020-02-19 15:54 | PCPTNOTE ---
The patient refused further treatment this pm at 3:30pm due to severe fatigue after testing and working with occupational therapy. Serenity Garrett PT
--- NOTE | 2020-02-19 16:11 | PCPTNOTE ---
Attempted to see patient for 13:00 PT session this date. Patient being transferred off unit for testing. Will try back later.
[2020-02-19] MEDS: SIMVASTATIN 20 MG TABLET PO (22:35)
[2020-02-20] VITALS (8 sets, daily range): BP systolic 131–146; BP diastolic 80–101; PULSE 72–132; RESP 19–32; TEMP 36.2–37.2; O2SAT 94–100
[2020-02-20 05:15] LABS: Blood Urea Nitrogen 22 mg/dL (7-17); Calcium 9.4 mg/dL (8.4-10.2); Carbon Dioxide 34 mmol/L (22-30); Chloride 95 mmol/L (98-107); Estimated CRCL calculation 62 ml/min; Estimated Glomerular Filt Rate 55; Glucose 143 mg/dL (65-105); Sodium 131 mmol/L (137-145)
[2020-02-20] MEDS: CYCLOBENZAPRINE HCL 5 MG TABLET PO ×2 (06:36→21:33)
[2020-02-20] MEDS: ALBUTEROL SULFATE (*SP) AEROSOL 1 PUFF 2 PUFF INHALATION ×3 (07:54→20:48)
--- NOTE | 2020-02-20 08:08 | PM.IMPN ---
Progress Note: A&P Assessment and Plan (1) Dyspnea: Qualifiers: Dyspnea type: shortness of breath Qualified Code(s): R06.02 - Shortness of breath Code(s): R06.00 - Dyspnea, unspecified Status: Acute Assessment and Plan: Patient continues to have diffuse wheezing. Probably underlying COPD given her history of chronic morning symptoms. Will check ABG. Schedule albuterol MDI. Solu-Medrol x1. Control heart rate. Wean oxygen as tolerated. ABG showing 7.35/47.8/92 on 2L (2) Atrial fibrillation: Qualifiers: Atrial fibrillation type: unspecified chronic Qualified Code(s): I48.20 - Chronic atrial fibrillation, unspecified Code(s): I48.91 - Unspecified atrial fibrillation Status: Chronic Assessment and Plan: Heart rate elevated but unclear this is related to her wheezing and shortness of breath or causing more issues. Will start on low-dose short-acting diltiazem and continue to monitor blood pressure heart rate. Currently anticoagulated with Eliquis. Continue monitor. (3) Cellulitis: Qualifiers: Laterality: right Site of cellulitis: extremity Site of cellulitis of extremity: lower extremity Qualified Code(s): L03.115 - Cellulitis of right lower limb Code(s): L03.90 - Cellulitis, unspecified Status: Acute Assessment and Plan: Patient currently on Bactrim for the cellulitis. Continue topical treatments and dressing changes. (4) Congestive heart failure: Qualifiers: Heart failure chronicity: acute on chronic Heart failure type: diastolic Qualified Code(s): I50.33 - Acute on chronic diastolic (congestive) heart failure Code(s): I50.9 - Heart failure, unspecified Status: Chronic Assessment and Plan: Chest x-ray on 02/17/2020 showing discoid atelectasis and pulmonary vascular congestion. CT of the chest on 02/19/2020 reviewed showing small right pleural effusion. No pulmonary edema noted at this time. Echocardiogram showing EF 50-55%. Patient takes Lasix 10 mg at home daily. Currently on 40 mg b.i.d.. Will decrease Lasix dose and treat as above. (5) Hypertension: Qualifiers: Hypertension type: essential hypertension Qualified Code(s): I10 - Essential (primary) hypertension Code(s): I10 - Essential (primary) hypertension Status: Chronic Assessment and Plan: Blood pressure elevated at times. Will add diltiazem for improved rate control. Reluctant to increase metoprolol given she is currently wheezing. Continue to monitor. 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 Currently on Eliquis. Continue the same. (7) Venous stasis dermatitis: Qualifiers: Laterality: right Qualified Code(s): I87.2 - Venous insufficiency (chronic) (peripheral) Code(s): I87.2 - Venous insufficiency (chronic) (peripheral) Status: Acute Assessment and Plan: Patient being followed by wound care. Continue current dressing changes and topical treatment. Antifungal treatment to the affected areas as well. (8) Closed T6 spinal fracture: Qualifiers: Encounter type: subsequent encounter Fracture healing: with routine healing Fracture morphology: unspecified fracture morphology Qualified Code(s): S22.059D - Unspecified fracture of T5-T6 vertebra, subsequent encounter for fracture with routine healing Code(s): S22.059A - Unspecified fracture of T5-T6 v
[2020-02-20 08:21] LABS: Alveolar/Arterial O2 Gradient 51.1 mmHg; Base Excess ABG -0.3 mEq/l (+/-2.0); Device NASAL CANNULA; Fractional Inspired Oxygen 28 %; HCO3 ABG 25.6 mEq/l (22.0-26.0); Methemoglobin ABG 0.4 %THb (0-1.5); Oxygen Content ABG 13.2 %vol (16.0-22.0); Oxygen Saturation ABG 96.6 % (95.0-100.0); Oxyhemoglobin 95.6 % THb (90.0-100.0); PCO2 ABG 47.8 mmHg (35.0-45.0); PO2 ABG 92.1 mmHg (80.0-100.0); PO2 FiO2 Ratio Arterial Blood 3.29 %; Site Drawn RIGHT BRACHIAL; Total Hemoglobin 9.7 g/dL (12.0-18.0); pH ABG 7.346 (7.350-7.450)
[2020-02-20] MEDS: ATORVASTATIN 10 MG TABLET PO (09:53)
[2020-02-20] MEDS: DILTIAZEM HCL 30 MG TABLET PO ×4 (09:53→23:26)
[2020-02-20] MEDS: FERROUS SULFATE 324 MG TABLET PO (09:54)
[2020-02-20] MEDS: FLUCONAZOLE 100 MG TABLET PO (09:54)
[2020-02-20] MEDS: APIXABAN 5 MG TABLET PO ×2 (09:54→18:34)
[2020-02-20] MEDS: CHOLECALCIFEROL 1,000 UNIT TABLET 1000 UNITS PO (09:54)
[2020-02-20] MEDS: FUROSEMIDE 40 MG TABLET PO (09:55)
[2020-02-20] MEDS: METOPROLOL TARTRATE 12.5 MG TABLET PO ×2 (09:55→21:31)
[2020-02-20] MEDS: TOLNAFTATE 1% POWDER 45 GM BTL 1 APPLIC TOPICAL ×2 (09:56→21:33)
[2020-02-20] MEDS: NEOMYCIN/POLYMYXIN/BACITRACIN OINTMENT 15 GM TUBE 1 APPLIC TOPICAL ×2 (10:34→18:35)
[2020-02-20] MEDS: predniSONE 20 MG TABLET 60 MG PO (10:34)
--- NOTE | 2020-02-20 11:31 | PCPTNOTE ---
Trina Larkin was evaluated for a straight cane on 02/20/2020 by this physical therapist assistant store leader. The straight cane will resolve patient's mobility limitations and will be used for ADL's within the home. The patient can safely use the straight cane. ?The straight cane will resolve the patient?s mobility deficits, including decreased balance and endurance.
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
[2020-02-21] VITALS (8 sets, daily range): BP systolic 110–151; BP diastolic 55–82; PULSE 86–111; RESP 18–20; TEMP 36–37.3; O2SAT 95–100
[2020-02-21 05:09] LABS: Hematocrit 27.2 % (37.0-47.0); Hemoglobin 8.3 g/dL (12.0-15.0); Immature Granulocyte Absolute 0.02 K/mm3 (0.00-0.031); Immature Granulocyte Percent A 0.3 % (0-0.5); Lymphocytes Absolute Auto 0.63 K/mm3 (0.9-3.2); Lymphocytes Percent Auto 8.1 % (18.3-44.2); Mean Corpuscular HGB Conc 30.5 g/dl (32-36); Mean Corpuscular Hemoglobin 28.7 pg (26-34); Mean Corpuscular Volume 94.1 fl (80-100); Monocytes Absolute Auto 1.6 K/mm3 (0.1-0.6); Monocytes Percent Auto 20.1 % (2.6-8.5); Neutrophils Absolute Auto 5.5 K/mm3 (1.3-6.7); Neutrophils Percent Auto 71.5 % (45.5-73.1); Platelet Count Result 375 k/mm3 (150-375); Red Blood Count 2.89 M/mm3 (4.2-5.4); Red Cell Distribution Width 16.3 % (11.5-14.5); White Blood Count 7.8 K/mm3 (4.5-10.0)
[2020-02-21 05:32] LABS: Albumin Level 3.5 g/dL (3.5-5.1); Blood Urea Nitrogen 22 mg/dL (7-17); Calcium 9.4 mg/dL (8.4-10.2); Carbon Dioxide 34 mmol/L (22-30); Chloride 93 mmol/L (98-107); Estimated CRCL calculation 76 ml/min; Estimated Glomerular Filt Rate > 60; Glucose 130 mg/dL (65-105); Phosphorus 3.5 mg/dL (2.5-4.5); Potassium 4.5 mmol/L (3.4-5.0); Sodium 131 mmol/L (137-145)
[2020-02-21] MEDS: DILTIAZEM HCL 30 MG TABLET PO ×3 (06:05→17:56)
[2020-02-21] MEDS: ATORVASTATIN 10 MG TABLET PO (08:48)
[2020-02-21] MEDS: CHOLECALCIFEROL 1,000 UNIT TABLET 1000 UNITS PO (08:48)
[2020-02-21] MEDS: FERROUS SULFATE 324 MG TABLET PO (08:48)
[2020-02-21] MEDS: APIXABAN 5 MG TABLET PO ×2 (08:48→17:56)
[2020-02-21] MEDS: FLUCONAZOLE 100 MG TABLET PO (08:48)
[2020-02-21] MEDS: FUROSEMIDE 40 MG TABLET PO (08:49)
[2020-02-21] MEDS: METOPROLOL TARTRATE 12.5 MG TABLET PO ×2 (08:49→21:23)
[2020-02-21] MEDS: NEOMYCIN/POLYMYXIN/BACITRACIN OINTMENT 15 GM TUBE 1 APPLIC TOPICAL ×2 (08:50→17:56)
[2020-02-21] MEDS: TOLNAFTATE 1% POWDER 45 GM BTL 1 APPLIC TOPICAL ×2 (08:50→21:24)
[2020-02-21] MEDS: ALBUTEROL SULFATE (*SP) AEROSOL 1 PUFF 2 PUFF INHALATION ×3 (09:02→19:19)
[2020-02-21] MEDS: CYCLOBENZAPRINE HCL 5 MG TABLET 2.5 MG PO ×2 (12:31→21:26)
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
--- NOTE | 2020-02-21 15:19 | PM.IMPN ---
Progress Note: A&P Assessment and Plan (1) Dyspnea: Qualifiers: Dyspnea type: shortness of breath Qualified Code(s): R06.02 - Shortness of breath Code(s): R06.00 - Dyspnea, unspecified Status: Acute Assessment and Plan: Wheezing much better. Patient just received one dose of oral prednisone. Suspect underlying COPD given her history of chronic morning symptoms. ABG showing 7.35/47.8/92 on 2L. Continue schedule albuterol MDI. Wean oxygen as tolerated. (2) Atrial fibrillation: Qualifiers: Atrial fibrillation type: unspecified chronic Qualified Code(s): I48.20 - Chronic atrial fibrillation, unspecified Code(s): I48.91 - Unspecified atrial fibrillation Status: Chronic Assessment and Plan: Heart rate was elevated so Diltiazem added. HR better controlled. Continue to monitor heart rate. Currently anticoagulated with Eliquis. Continue monitor. (3) Cellulitis: Qualifiers: Laterality: right Site of cellulitis: extremity Site of cellulitis of extremity: lower extremity Qualified Code(s): L03.115 - Cellulitis of right lower limb Code(s): L03.90 - Cellulitis, unspecified Status: Acute Assessment and Plan: Patient currently on Bactrim for the cellulitis. Continue topical treatments and dressing changes. (4) Congestive heart failure: Qualifiers: Heart failure chronicity: acute on chronic Heart failure type: diastolic Qualified Code(s): I50.33 - Acute on chronic diastolic (congestive) heart failure Code(s): I50.9 - Heart failure, unspecified Status: Chronic Assessment and Plan: Chest x-ray on 02/17/2020 showing discoid atelectasis and pulmonary vascular congestion. CT of the chest on 02/19/2020 reviewed showing small right pleural effusion but no pulmonary edema noted. Echocardiogram showing EF 50-55%. Patient takes Lasix 10 mg at home daily. She was on 40 mg b.i.d. but decreased to 40 mg daily. Electrolytes essentially unchanged. Continue to monitor electrolytes. (5) Hypertension: Qualifiers: Hypertension type: essential hypertension Qualified Code(s): I10 - Essential (primary) hypertension Code(s): I10 - Essential (primary) hypertension Status: Chronic Assessment and Plan: Blood pressure reviewed on 02/21/2020. Blood pressure well controlled. Continue metoprolol and diltiazem. Continue to monitor. 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 Currently on Eliquis. Continue the same. (7) Venous stasis dermatitis: Qualifiers: Laterality: right Qualified Code(s): I87.2 - Venous insufficiency (chronic) (peripheral) Code(s): I87.2 - Venous insufficiency (chronic) (peripheral) Status: Acute Assessment and Plan: Patient being followed by wound care. Continue current dressing changes and topical treatment. Antifungal treatment to the affected areas as well. Eucerin cream to intact skin. (8) Closed T6 spinal fracture: Qualifiers: Encounter type: subsequent encounter Fracture healing: with routine healing Fracture morphology: unspecified fracture morphology Qualified Code(s): S22.059D - Unspecified fracture of T5-T6 vertebra, subsequent encounter for fracture with routine healing Code(s): S22.059A - Unspecified fracture of T5-T6 vertebra, initial encounter for closed fracture Status: Acute Assessment and Plan:
[2020-02-22] VITALS (7 sets, daily range): BP systolic 116–138; BP diastolic 63–84; PULSE 93–112; RESP 20–22; TEMP 36.8–37; O2SAT 97–100
[2020-02-22] MEDS: DILTIAZEM HCL 30 MG TABLET PO ×4 (01:07→18:17)
[2020-02-22] MEDS: ALBUTEROL SULFATE (*SP) AEROSOL 1 PUFF 2 PUFF INHALATION ×4 (01:15→19:51)
[2020-02-22 05:19] LABS: Blood Urea Nitrogen 23 mg/dL (7-17); Calcium 9.3 mg/dL (8.4-10.2); Carbon Dioxide 33 mmol/L (22-30); Chloride 93 mmol/L (98-107); Estimated CRCL calculation 76 ml/min; Estimated Glomerular Filt Rate > 60; Glucose 152 mg/dL (65-105); Potassium 4.4 mmol/L (3.4-5.0); Sodium 129 mmol/L (137-145)
[2020-02-22] MEDS: CYCLOBENZAPRINE HCL 5 MG TABLET 2.5 MG PO ×3 (06:45→20:15)
[2020-02-22] MEDS: APIXABAN 5 MG TABLET PO ×2 (09:19→18:17)
[2020-02-22] MEDS: ATORVASTATIN 10 MG TABLET PO (09:19)
[2020-02-22] MEDS: polyethylene glycoL 3350 17 GM POWD.PACK PO (09:19)
[2020-02-22] MEDS: FERROUS SULFATE 324 MG TABLET PO (09:21)
[2020-02-22] MEDS: CHOLECALCIFEROL 1,000 UNIT TABLET 1000 UNITS PO (09:21)
[2020-02-22] MEDS: FLUCONAZOLE 100 MG TABLET PO (09:22)
[2020-02-22] MEDS: METOPROLOL TARTRATE 12.5 MG TABLET PO ×2 (09:22→20:16)
[2020-02-22] MEDS: NEOMYCIN/POLYMYXIN/BACITRACIN OINTMENT 15 GM TUBE 1 APPLIC TOPICAL ×2 (09:23→18:17)
[2020-02-22] MEDS: TOLNAFTATE 1% POWDER 45 GM BTL 1 APPLIC TOPICAL ×2 (09:23→20:16)
[2020-02-22] MEDS: EUCERIN CREAM 120 GM JAR 1 APPLIC TOPICAL (09:23)
[2020-02-22] MEDS: FUROSEMIDE 20 MG TABLET PO (09:30)
--- NOTE | 2020-02-22 11:15 | PM.IMPN ---
Progress Note: A&P Assessment and Plan (1) Dyspnea: Qualifiers: Dyspnea type: shortness of breath Qualified Code(s): R06.02 - Shortness of breath Code(s): R06.00 - Dyspnea, unspecified Status: Acute Assessment and Plan: ABG showing 7.35/47.8/92 on 2L on 02/20/20 and patient received one dose of oral prednisone. Wheezing resolved. Suspect underlying COPD given her history of chronic morning symptoms. Continue schedule albuterol MDI. Wean oxygen as tolerated. (2) Atrial fibrillation: Qualifiers: Atrial fibrillation type: unspecified chronic Qualified Code(s): I48.20 - Chronic atrial fibrillation, unspecified Code(s): I48.91 - Unspecified atrial fibrillation Status: Chronic Assessment and Plan: Heart rate was elevated so Diltiazem added. HR reviewed on 02/22/20 and elevated again but mildly. Could be related to increase activity. Continue to monitor heart rate. Continue Diltiazem and metoprolol. Currently anticoagulation with Eliquis. Continue monitor. (3) Cellulitis: Qualifiers: Laterality: right Site of cellulitis: extremity Site of cellulitis of extremity: lower extremity Qualified Code(s): L03.115 - Cellulitis of right lower limb Code(s): L03.90 - Cellulitis, unspecified Status: Acute Assessment and Plan: Patient currently on Bactrim for the cellulitis. Clinical condition improving. Continue topical treatments and dressing changes. (4) Congestive heart failure: Qualifiers: Heart failure chronicity: acute on chronic Heart failure type: diastolic Qualified Code(s): I50.33 - Acute on chronic diastolic (congestive) heart failure Code(s): I50.9 - Heart failure, unspecified Status: Chronic Assessment and Plan: Chest x-ray on 02/17/2020 showing discoid atelectasis and pulmonary vascular congestion. CT of the chest on 02/19/2020 reviewed showing small right pleural effusion. No pulmonary edema noted. Echocardiogram showing EF 50-55%. Patient takes Lasix 10 mg at home daily. Currently on 40 mg daily. No edema and electrolytes stable. 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 (5) Hypertension: Qualifiers: Hypertension type: essential hypertension Qualified Code(s): I10 - Essential (primary) hypertension Code(s): I10 - Essential (primary) hypertension Status: Chronic Assessment and Plan: Blood pressure reviewed on 02/22/2020. Blood pressure elevated at times but overall reasonably well controlled. Continue metoprolol and diltiazem. Continue to monitor. 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 Currently on Eliquis. Continue the same. (7) Venous stasis dermatitis: Qualifiers: Laterality: right Qualified Code(s): I87.2 - Venous insufficiency (chronic) (peripheral) Code(s): I87.2 - Venous insufficiency (chronic) (peripheral) Status: Acute Assessment and Plan: Patient being followed by wound care. Continue current dressing changes and topical treatment. Antifungal treatment to the affected areas as well. Eucerin cream to intact skin. (8) Closed T6 spinal fracture: Qualifiers: Encounter type: subsequent encounter Fracture healing: with routine healing Fracture morphology: unspecified fracture morphology Qualified Code(s): S22.059D - Unspecified fracture of T5-T6 vertebra, subsequent encounter for
--- NOTE | 2020-02-22 12:34 | WPDNEURORHBP ---
Subjective Date/time seen: 02/22/20 12:34 Interval history: this 69-year-old woman does morbidly obese is here because of multiple fractures as have been documented in my previous notes the main medical issue at this point is the COPD exacerbation for which she is requiring oxygen however she is getting better at this point she particularly denies any increase in her shortness of breath chest pain shortness shortness of breath fever chills sore throat and she is really doing fairly well in the PT and OT and able to ambulate with the TLSO and the left arm sling for humeral fracture Review of Systems Review of Systems: All systems reviewed & are unremarkable except as noted in HPI and below Functional Status Ambulation Ability Ability to Ambulate 10 Feet: Contact Guard Ability to Ambulate 50 Feet With 2 Turns: Contact Guard Ability to Ambulate 150 Feet: Contact Guard Ambulation Assistive Devices: Cane Transfers Ability Ability to Transfer In/Out of Chair: Minimum Assistance X 1 Exam Const: General: comfortable and no acute distress HENMT: General nose exam: Normal nares present Mouth: Yes moist mucous membranes Eyes: General: appearance normal, both eyes and all related structures Neck: Neck: supple and no JVD Resp: Other: wheezing is much less rhonchi our last Cardio: Rate: regular rate Rhythm: regular rhythm GI: GI Palp: Yes Soft to palpation Auscultation: normal bowel sounds Skin: General skin exam: normal color Neuro: Other: patient remains awake alert will going to time place and person speech language functions normal cranial exam shows normal her strength bilaterally is improving of course she is nonweightbearing of the left upper extremity particularly around the shoulder area due to humeral fracture Extrem: General: normal to inspection Other: left arm in sling Psych: Mental Status: mental status grossly normal Objective Data Vital Signs Vital Signs: Vital Signs - 24 hr 02/21/20 14:00 02/21/20 19:20 02/21/20 21:23 Temperature 36.0 C L Pulse Rate 86 102 H Respiratory Rate 18 Blood Pressure 110/82 Pulse Oximetry 100 95 02/21/20 22:00 02/22/20 06:00 02/22/20 09:22 Temperature 37.3 C 36.9 C Pulse Rate 106 H 112 H 112 H Respiratory Rate 20 20 Blood Pressure 151/73 H 116/63 Pulse Oximetry 98 97 Intake/Output Intake/Output: Intake & Output 02/19/20 02/20/20 02/21/20 02/22/20 23:59 23:59 23:59 23:59 Intake Total 720 840 240 Balance 720 840 240 Meds/Results Medications: Active Medications Generic Name Dose Route Start Last Admin Trade Name Freq PRN Reason Stop Dose Admin Acetaminophen 650 mg 02/13/20 14:44 02/13/20 15:01 Tylenol Tablet PO 650 mg Q4H PRN Administration Fever >101 Hydrocodone Bitart/Acetaminophen 1 tab 02/12/20 17:50 02/22/20 06:39 [place] 5-325 Mg PO 1 tab Q4H PRN Administration Pain Albuterol 2 puff 02/20/20 08:00 02/22/20 08:32 Proventil Hfa INHALATION 2 puff Q6HRT DEWAYNE Administration Apixaban 5 mg 02/13/20 09:00 02/22/20 09:19 Eliquis PO 5 mg BID DEWAYNE Administration Atorvastatin Calcium 10 mg 02/20/20 09:00 02/22/20 09:19 Lipitor PO 10 mg DAILY DEWAYNE Administration Cyclobenzaprine HCl 2.5 mg 02/21/20 14:00 02/22/20 06:45 Flexeril PO 2.5 mg Q8HR DEWAYNE Administration Diltiazem HCl 30 mg 02/20/20 08:05 02/22/20 06:43 Cardizem Tab PO 30 mg Q6HR DEWAYNE Administration Ferrous Sulfate 324 mg 02/13/20 09:00 02/22/20 09:21 Ferrous Sulfate PO 324 mg DAILY DEWAYNE Administration Fluconazole 100 mg 02/13/20 09:00 02/22/20 09:22 Diflucan Tablet PO 02/26/20 09:01 100 mg QAM DEWAYNE Administration Furosemide 20 mg 02/22/20 09:00 02/22/20 09:30 Lasix Tablet PO 20 mg QAM DEWAYNE Administration Melatonin 3 mg 02/17/20 13:34 Melatonin PO HS PRN Insomnia Metoprolol Tartrate 12.5 mg 02/12/20 21:00 02/22/20 09:22 Lopressor PO
[2020-02-23] VITALS (9 sets, daily range): BP systolic 122–135; BP diastolic 53–84; PULSE 88–119; RESP 20; TEMP 36.3–37.8; O2SAT 84–100
[2020-02-23] MEDS: DILTIAZEM HCL 30 MG TABLET PO ×4 (00:08→17:01)
[2020-02-23] MEDS: ALBUTEROL SULFATE (*SP) AEROSOL 1 PUFF 2 PUFF INHALATION ×4 (01:07→20:02)
[2020-02-23] MEDS: CYCLOBENZAPRINE HCL 5 MG TABLET 2.5 MG PO ×3 (05:19→20:19)
[2020-02-23] MEDS: FUROSEMIDE 20 MG TABLET PO (08:26)
[2020-02-23] MEDS: FLUCONAZOLE 100 MG TABLET PO (08:27)
[2020-02-23] MEDS: APIXABAN 5 MG TABLET PO ×2 (08:27→17:01)
[2020-02-23] MEDS: FERROUS SULFATE 324 MG TABLET PO (08:27)
[2020-02-23] MEDS: NEOMYCIN/POLYMYXIN/BACITRACIN OINTMENT 15 GM TUBE 1 APPLIC TOPICAL (08:28)
[2020-02-23] MEDS: CHOLECALCIFEROL 1,000 UNIT TABLET 1000 UNITS PO (08:28)
[2020-02-23] MEDS: ATORVASTATIN 10 MG TABLET PO (08:28)
[2020-02-23] MEDS: TOLNAFTATE 1% POWDER 45 GM BTL 1 APPLIC TOPICAL ×2 (08:28→20:24)
[2020-02-23] MEDS: EUCERIN CREAM 120 GM JAR 1 APPLIC TOPICAL (08:29)
[2020-02-23] MEDS: METOPROLOL TARTRATE 12.5 MG TABLET PO ×2 (08:30→20:11)
--- NOTE | 2020-02-23 08:48 | PM.IMPN ---
Progress Note: A&P Assessment and Plan (1) Dyspnea: Qualifiers: Dyspnea type: shortness of breath Qualified Code(s): R06.02 - Shortness of breath Code(s): R06.00 - Dyspnea, unspecified Status: Acute Assessment and Plan: ABG showing 7.35/47.8/92 on 2L on 02/20/20 and patient received one dose of oral prednisone. Wheezing resolved. Suspect underlying COPD given her history of chronic morning symptoms. Continue schedule albuterol MDI. Wean oxygen as tolerated. (2) Atrial fibrillation: Qualifiers: Atrial fibrillation type: unspecified chronic Qualified Code(s): I48.20 - Chronic atrial fibrillation, unspecified Code(s): I48.91 - Unspecified atrial fibrillation Status: Chronic Assessment and Plan: Heart rate was elevated so Diltiazem added. HR reviewed on 02/23/20 and improved. Currently anticoagulation with Eliquis. Continue Diltiazem and metoprolol. Continue to monitor heart rate. (3) Cellulitis: Qualifiers: Site of cellulitis: extremity Site of cellulitis of extremity: lower extremity Laterality: right Qualified Code(s): L03.115 - Cellulitis of right lower limb Code(s): L03.90 - Cellulitis, unspecified Status: Acute Assessment and Plan: Patient currently on Bactrim for the cellulitis. Clinical condition improving. Continue Eucerin and dressing changes. (4) Congestive heart failure: Qualifiers: Heart failure type: diastolic Heart failure chronicity: acute on chronic Qualified Code(s): I50.33 - Acute on chronic diastolic (congestive) heart failure Code(s): I50.9 - Heart failure, unspecified Status: Chronic Assessment and Plan: Chest x-ray on 02/17/2020 showing discoid atelectasis and pulmonary vascular congestion. CT of the chest on 02/19/2020 reviewed showing small right pleural effusion. No pulmonary edema noted. Echocardiogram showing EF 50-55%. Patient takes Lasix 10 mg at home daily. Was treated with higher doses initially but now back down to Lasix 20mg daily. Repeat BMP in the morning. (5) Hypertension: Qualifiers: Hypertension type: essential hypertension Qualified Code(s): I10 - Essential (primary) hypertension Code(s): I10 - Essential (primary) hypertension Status: Chronic Assessment and Plan: Blood pressure reviewed on 02/23/2020. Blood pressure well controlled. Continue metoprolol and diltiazem. Continue to monitor. 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 Currently on Eliquis. Continue the same. (7) Venous stasis dermatitis: Qualifiers: Laterality: right Qualified Code(s): I87.2 - Venous insufficiency (chronic) (peripheral) Code(s): I87.2 - Venous insufficiency (chronic) (peripheral) Status: Acute Assessment and Plan: Patient being followed by wound care. Will continue the Eucerin but stop the Neosporin. Continue dressing changes. Antifungal treatment to the affected areas as well. Continue Bactrim for now. (8) Closed T6 spinal fracture: Qualifiers: Encounter type: subsequent encounter Fracture morphology: unspecified fracture morphology Fracture healing: with routine healing Qualified Code(s): S22.059D - Unspecified fracture of T5-T6 vertebra, subsequent encounter for fracture with routine healing Code(s): S22.059A - Unspecified fracture of T5-T6 vertebra, initial encounter for bhavani
--- NOTE | 2020-02-23 12:13 | WPDNEURORHBP ---
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 and still has some wheezing she is being followed by our hospitalist and the medication are being managed for her respiratory status by them Review of Systems Review of Systems: All systems reviewed & are unremarkable except as noted in HPI and below Functional Status Ambulation Ability Ability to Ambulate 10 Feet: Contact Guard Ability to Ambulate 50 Feet With 2 Turns: Contact Guard Ability to Ambulate 150 Feet: Contact Guard Ambulation Assistive Devices: Cane Transfers Ability Ability to Transfer In/Out of Chair: Minimum Assistance X 1 Exam Const: General: comfortable and no acute distress HENMT: General nose exam: Normal nares present Mouth: Yes moist mucous membranes Eyes: General: appearance normal, both eyes and all related structures Neck: Neck: supple and no JVD Resp: Effort & Inspection: normal respiratory effort Auscultation: clear to auscultation bilaterally Other: the wheezing bilaterally is generalized and stable Cardio: Rate: regular rate Rhythm: regular rhythm GI: GI Palp: Yes Soft to palpation Auscultation: normal bowel sounds Skin: General skin exam: normal color and no rashes or lesions noted Neuro: Other: patient remains awake and alert with normal mental state examination normal cranial nerve exam, generalized decrease in strength and getting short of breath with the therapy needing oxygen 2 liters however apart from the fact that she has the fracture her weakness is not directly from a neurological dysfunction but care because of the anatomy and the nature of the fracture Extrem: General: normal to inspection Psych: Mental Status: mental status grossly normal Objective Data Vital Signs Vital Signs: Vital Signs - 24 hr 02/22/20 14:00 02/22/20 14:05 02/22/20 19:52 Temperature 37.0 C Pulse Rate 109 H 102 H Respiratory Rate 22 H Blood Pressure 138/73 Pulse Oximetry 99 100 98 02/22/20 20:16 02/22/20 22:00 02/23/20 06:00 Temperature 36.8 C 36.3 C L Pulse Rate 102 H 93 97 Respiratory Rate 20 20 Blood Pressure 133/84 135/84 Pulse Oximetry 98 97 02/23/20 08:30 02/23/20 08:39 02/23/20 09:33 Temperature Pulse Rate 88 Respiratory Rate Blood Pressure Pulse Oximetry 96 84 L 02/23/20 09:37 Temperature Pulse Rate Respiratory Rate Blood Pressure Pulse Oximetry 95 Intake/Output Intake/Output: Intake & Output 02/20/20 02/21/20 02/22/20 02/23/20 23:59 23:59 23:59 23:59 Intake Total 720 840 620 240 Balance 720 840 620 240 Meds/Results Medications: Active Medications Generic Name Dose Route Start Last Admin Trade Name Freq PRN Reason Stop Dose Admin Acetaminophen 650 mg 02/13/20 14:44 02/13/20 15:01 Tylenol Tablet PO 650 mg Q4H PRN Administration Fever >101 Hydrocodone Bitart/Acetaminophen 1 tab 02/12/20 17:50 02/23/20 00:08 [place] 5-325 Mg PO 1 tab Q4H PRN Administration Pain Albuterol 2 puff 02/20/20 08:00 02/23/20 08:38 Proventil Hfa INHALATION 2 puff Q6HRT DEWAYNE Administration Apixaban 5 mg 02/13/20 09:00 02/23/20 08:27 Eliquis PO 5 mg BID DEWAYNE Administration Atorvastatin Calcium 10 mg 02/20/20 09:00 02/23/20 08:28 Lipitor PO 10 mg DAILY DEWAYNE Administration Cyclobenzaprine HCl 2.5 mg 02/21/20 14:00 02/23/20 05:19 Flexeril PO 2.5 mg Q8HR DEWAYNE Administration Diltiazem HCl 30 mg 02/20/20 08:05 02/23/20 12:05 Cardizem Tab PO 30 mg Q6HR DEWAYNE Administration Ferrous Sulf
--- NOTE | 2020-02-23 16:25 | PCRCNOTE ---
Window of time for administration has passed. See next scheduled administration. MDI not given 02/21 at 0200
[2020-02-24] VITALS (8 sets, daily range): BP systolic 117–148; BP diastolic 59–89; PULSE 80–116; RESP 19–20; TEMP 36.4–37.1; O2SAT 88–100
[2020-02-24] MEDS: ALBUTEROL SULFATE (*SP) AEROSOL 1 PUFF 2 PUFF INHALATION ×4 (02:00→21:02)
[2020-02-24] MEDS: DILTIAZEM HCL 30 MG TABLET PO ×3 (02:58→17:14)
[2020-02-24] MEDS: CYCLOBENZAPRINE HCL 5 MG TABLET 2.5 MG PO ×3 (06:40→20:34)
[2020-02-24 07:07] LABS: Blood Urea Nitrogen 15 mg/dL (7-17); Calcium 8.8 mg/dL (8.4-10.2); Carbon Dioxide 31 mmol/L (22-30); Chloride 91 mmol/L (98-107); Estimated CRCL calculation 86 ml/min; Estimated Glomerular Filt Rate > 60; Glucose 149 mg/dL (65-105); Potassium 3.6 mmol/L (3.4-5.0); Sodium 128 mmol/L (137-145)
[2020-02-24] MEDS: ATORVASTATIN 10 MG TABLET PO (10:19)
[2020-02-24] MEDS: APIXABAN 5 MG TABLET PO ×2 (10:19→17:14)
[2020-02-24] MEDS: FUROSEMIDE 20 MG TABLET PO (10:20)
[2020-02-24] MEDS: FERROUS SULFATE 324 MG TABLET PO (10:20)
[2020-02-24] MEDS: FLUCONAZOLE 100 MG TABLET PO (10:20)
[2020-02-24] MEDS: CHOLECALCIFEROL 1,000 UNIT TABLET 1000 UNITS PO (10:20)
[2020-02-24] MEDS: METOPROLOL TARTRATE 12.5 MG TABLET PO ×2 (10:22→20:35)
[2020-02-24] MEDS: polyethylene glycoL 3350 17 GM POWD.PACK PO (10:23)
--- NOTE | 2020-02-24 16:09 | PM.IMPN ---
Progress Note: A&P Assessment and Plan (1) Dyspnea: Qualifiers: Dyspnea type: shortness of breath Qualified Code(s): R06.02 - Shortness of breath Code(s): R06.00 - Dyspnea, unspecified Status: Acute Assessment and Plan: ABG showing 7.35/48/92 on 2L on 02/20/20 and patient received one dose of oral prednisone. Wheezing resolved. Suspect underlying COPD given her history of chronic morning symptoms. May also have undiagnosed YESENIA. Continue schedule albuterol MDI. Wean oxygen as tolerated. Repeat CXR in the morning. Check apnea link to see if she needs O2 at night. (2) Atrial fibrillation: Qualifiers: Atrial fibrillation type: unspecified chronic Qualified Code(s): I48.20 - Chronic atrial fibrillation, unspecified Code(s): I48.91 - Unspecified atrial fibrillation Status: Chronic Assessment and Plan: Heart rate was elevated so Diltiazem added. HR reviewed on 02/24/20 and overall improved. Currently anticoagulation with Eliquis. Continue Diltiazem and metoprolol. Continue to monitor heart rate. If remains stable, will change to Diltiazem CD. (3) Cellulitis: Qualifiers: Site of cellulitis: extremity Site of cellulitis of extremity: lower extremity Laterality: right Qualified Code(s): L03.115 - Cellulitis of right lower limb Code(s): L03.90 - Cellulitis, unspecified Status: Acute Assessment and Plan: Patient currently on Bactrim Day 9 for the cellulitis. Clinical condition improving. Continue Eucerin and dressing changes. Okay to stop Bactrim. (4) Congestive heart failure: Qualifiers: Heart failure type: diastolic Heart failure chronicity: acute on chronic Qualified Code(s): I50.33 - Acute on chronic diastolic (congestive) heart failure Code(s): I50.9 - Heart failure, unspecified Status: Chronic Assessment and Plan: Chest x-ray on 02/17/2020 showing discoid atelectasis and pulmonary vascular congestion. CT of the chest on 02/19/2020 reviewed showing small right pleural effusion. No pulmonary edema noted. Echo on 02/18 showing EF 50-55%. Patient takes Lasix 10 mg at home daily. Was treated with higher doses initially but now back down to Lasix 20mg daily. Continue the same. (5) Hypertension: Qualifiers: Hypertension type: essential hypertension Qualified Code(s): I10 - Essential (primary) hypertension Code(s): I10 - Essential (primary) hypertension Status: Chronic Assessment and Plan: Blood pressure reviewed on 02/24/2020. Blood pressure well controlled. Continue metoprolol and diltiazem. Continue to monitor. 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 Currently on Eliquis. Continue the same. (7) Venous stasis dermatitis: Qualifiers: Laterality: right Qualified Code(s): I87.2 - Venous insufficiency (chronic) (peripheral) Code(s): I87.2 - Venous insufficiency (chronic) (peripheral) Status: Acute Assessment and Plan: Patient being followed by wound care. Will continue the Eucerin. Continue dressing changes. Antifungal treatment to the affected areas as well. Day 9 of Bactrim so will stop. (8) Closed T6 spinal fracture: Qualifiers: Encounter type: subsequent encounter Fracture morphology: unspecified fracture morphology Fracture healing: with routine healing Qualified Code(s): S22.059D - Unspecified fractur
[2020-02-24] MEDS: EUCERIN CREAM 120 GM JAR 1 APPLIC TOPICAL (17:16)
[2020-02-24] MEDS: TOLNAFTATE 1% POWDER 45 GM BTL 1 APPLIC TOPICAL ×2 (17:17→20:37)
[2020-02-24] MEDS: NEOMYCIN/POLYMYXIN/BACITRACIN OINTMENT 15 GM TUBE 1 APPLIC TOPICAL ×2 (17:17→17:18)
[2020-02-25] VITALS (7 sets, daily range): BP systolic 133–146; BP diastolic 61–72; PULSE 82–118; RESP 18–32; TEMP 36.5–37.7; O2SAT 93–99
[2020-02-25] MEDS: DILTIAZEM HCL 30 MG TABLET PO ×4 (00:17→18:03)
[2020-02-25] MEDS: CYCLOBENZAPRINE HCL 5 MG TABLET 2.5 MG PO (05:31)
[2020-02-25] MEDS: ALBUTEROL SULFATE (*SP) AEROSOL 1 PUFF 2 PUFF INHALATION (08:15)
[2020-02-25] MEDS: ACETAMINOPHEN 325 MG TABLET 650 MG PO (10:23)
[2020-02-25] MEDS: APIXABAN 5 MG TABLET PO ×2 (10:26→16:37)
[2020-02-25] MEDS: CHOLECALCIFEROL 1,000 UNIT TABLET 1000 UNITS PO (10:27)
[2020-02-25] MEDS: FERROUS SULFATE 324 MG TABLET PO (10:27)
[2020-02-25] MEDS: ATORVASTATIN 10 MG TABLET PO (10:27)
[2020-02-25] MEDS: FLUCONAZOLE 100 MG TABLET PO (10:27)
[2020-02-25] MEDS: FUROSEMIDE 20 MG TABLET PO (10:28)
[2020-02-25] MEDS: polyethylene glycoL 3350 17 GM POWD.PACK PO (10:28)
[2020-02-25] MEDS: METOPROLOL TARTRATE 12.5 MG TABLET PO ×2 (10:28→20:14)
[2020-02-25] MEDS: NEOMYCIN/POLYMYXIN/BACITRACIN OINTMENT 15 GM TUBE 1 APPLIC TOPICAL ×2 (10:29→16:37)
[2020-02-25] MEDS: EUCERIN CREAM 120 GM JAR 1 APPLIC TOPICAL (10:30)
[2020-02-25] MEDS: TOLNAFTATE 1% POWDER 45 GM BTL 1 APPLIC TOPICAL ×2 (10:30→20:14)
--- NOTE | 2020-02-25 13:43 | PM.IMPN ---
Progress Note: A&P Assessment and Plan (1) Dyspnea: Qualifiers: Dyspnea type: shortness of breath Qualified Code(s): R06.02 - Shortness of breath Code(s): R06.00 - Dyspnea, unspecified Status: Acute Assessment and Plan: ABG showing 7.35/48/92 on 2L on 02/20/20 and patient received one dose of oral prednisone. Wheezing resolved. Suspect underlying COPD given her history of chronic morning symptoms. Apnea link positive and probably has undiagnosed YESENIA. Continue schedule bronchodilators. Wean oxygen as tolerated. Repeat CXR as mentioned below. Incidental finding of possible bowel distention so will check obstructive series. (2) Atrial fibrillation: Qualifiers: Atrial fibrillation type: unspecified chronic Qualified Code(s): I48.20 - Chronic atrial fibrillation, unspecified Code(s): I48.91 - Unspecified atrial fibrillation Status: Chronic Assessment and Plan: Heart rate was elevated so Diltiazem added. HR reviewed on 02/25/20 still elevated at times. Currently anticoagulation with Eliquis. Continue Diltiazem and metoprolol. Change to Xopenex. Continue to monitor heart rate. If remains stable, will change to Diltiazem CD. (3) Cellulitis: Qualifiers: Laterality: right Site of cellulitis: extremity Site of cellulitis of extremity: lower extremity Qualified Code(s): L03.115 - Cellulitis of right lower limb Code(s): L03.90 - Cellulitis, unspecified Status: Acute Assessment and Plan: Patient completed a course of Bactrim. Clinical condition improving. Continue Eucerin and dressing changes. (4) Congestive heart failure: Qualifiers: Heart failure chronicity: acute on chronic Heart failure type: diastolic Qualified Code(s): I50.33 - Acute on chronic diastolic (congestive) heart failure Code(s): I50.9 - Heart failure, unspecified Status: Chronic Assessment and Plan: Chest x-ray on 02/17/2020 showing discoid atelectasis and pulmonary vascular congestion. CT of the chest on 02/19/2020 reviewed showing small right pleural effusion. No pulmonary edema noted. Echo on 02/18 showing EF 50-55%. Patient takes Lasix 10 mg at home daily. Was treated with higher doses initially but now back down to Lasix 20mg daily. CXR today reviewed showing mild infiltrate or atelectasis in the right mid and lower lung field and small right pleural effusion. Probably atelectasis related to the shell. Add IS. Consider early PNA (and may have been relatively asymptomaticsince being on Bactrim). Continue to follow. (5) Hypertension: Qualifiers: Hypertension type: essential hypertension Qualified Code(s): I10 - Essential (primary) hypertension Code(s): I10 - Essential (primary) hypertension Status: Chronic Assessment and Plan: Blood pressure reviewed on 02/25/2020. Blood pressure well controlled. Continue metoprolol and diltiazem. Continue to monitor. 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 Currently on Eliquis. Continue the same. (7) Venous stasis dermatitis: Qualifiers: Laterality: right Qualified Code(s): I87.2 - Venous insufficiency (chronic) (peripheral) Code(s): I87.2 - Venous insufficiency (chronic) (peripheral) Status: Acute Assessment and Plan: Patient being followed by wound care. Will continue the Eucerin. Continue dressing changes. Antifungal
[2020-02-25] MEDS: LEVALBUTEROL HFA (*SP) 15 GM INHALER 2 PUFF INHALATION ×2 (15:23→19:56)
--- NOTE | 2020-02-25 16:11 | WPDNEURORHBP ---
Subjective Date/time seen: 02/25/20 16:11 Interval history: this is a 69-year-old woman who is here after having an multiple fractures as documented in my previous notes that issues relatively stable however she is facing the pulmonary issues, acute exacerbation of her COPD along with the sleep apnea her AHI index is 12.0 a chest x-ray shows cardiomegaly on the hospital is following overall she seems to be stable however does not seem to have the same kind of energy she has several days ago once this the pulmonary issues started her shortness of breath is better no chest pain no headache nausea vomiting fever chills sore throat. Review of Systems Review of Systems: All systems reviewed & are unremarkable except as noted in HPI and below Functional Status Ambulation Ability Ability to Ambulate 10 Feet: Contact Guard Ability to Ambulate 50 Feet With 2 Turns: Contact Guard Ability to Ambulate 150 Feet: Contact Guard Ambulation Assistive Devices: Cane Transfers Ability Ability to Transfer In/Out of Chair: Minimum Assistance X 1 Exam Const: General: comfortable and no acute distress HENMT: General nose exam: Normal nares present Mouth: Yes moist mucous membranes Eyes: General: appearance normal, both eyes and all related structures Neck: Neck: no JVD Resp: Other: Generalized rhonchi fluctuating in her ears have been changed Cardio: Rate: regular rate Rhythm: regular rhythm GI: GI Palp: Yes Soft to palpation Auscultation: normal bowel sounds Skin: General skin exam: normal color and no rashes or lesions noted Neuro: Other: patient remains alert well oriented time place and person normal cranial nerve examination, generalized decrease in strength in both upper lower extremities overall neurologically seem to be stable Extrem: General: normal to inspection Other: left upper extremity is in sling due to humeral fracture Psych: Mental Status: mental status grossly normal Objective Data Vital Signs Vital Signs: Vital Signs - 24 hr 02/24/20 20:35 02/24/20 21:00 02/24/20 22:00 Temperature 37.1 C Pulse Rate 84 103 H Respiratory Rate 20 Blood Pressure 148/89 H Pulse Oximetry 94 100 02/25/20 06:00 02/25/20 08:15 02/25/20 10:28 Temperature 37.7 C H Pulse Rate 118 H 118 H Respiratory Rate 21 H Blood Pressure 146/65 H Pulse Oximetry 97 96 02/25/20 14:00 Temperature 36.6 C Pulse Rate 86 Respiratory Rate 22 H Blood Pressure 133/61 Pulse Oximetry 99 Intake/Output Intake/Output: Intake & Output 02/22/20 02/23/20 02/24/20 02/25/20 23:59 23:59 23:59 23:59 Intake Total 620 480 960 480 Balance 620 480 960 480 Meds/Results Medications: Active Medications Generic Name Dose Route Start Last Admin Trade Name Freq PRN Reason Stop Dose Admin Acetaminophen 650 mg 02/13/20 14:44 02/25/20 10:23 Tylenol Tablet PO 650 mg Q4H PRN Administration Fever >101 Hydrocodone Bitart/Acetaminophen 1 tab 02/12/20 17:50 02/24/20 20:33 [place]ell 5-325 Mg PO 1 tab Q4H PRN Administration Pain Albuterol 2 puff 02/20/20 08:00 02/25/20 08:15 Proventil Hfa INHALATION 2 puff Q6HRT DEWAYNE Administration Apixaban 5 mg 02/13/20 09:00 02/25/20 10:26 Eliquis PO 5 mg BID DEWAYNE Administration Atorvastatin Calcium 10 mg 02/20/20 09:00 02/25/20 10:27 Lipitor PO 10 mg DAILY DEWAYNE Administration Cyclobenzaprine HCl 2.5 mg 02/25/20 13:27 Flexeril PO Q8HR PRN Muscle Spasm Diltiazem HCl 30 mg 02/20/20 08:05 02/25/20 13:21 Cardizem Tab PO 30 mg Q6HR DEWAYNE Administration Ferrous Sulfate 324 mg 02/13/20 09:00 02/25/20 10:27 Ferrous Sulfate PO 324 mg DAILY DEWAYNE Administration Fluconazole 100 mg 02/13/20 09:00 02/25/20 10:27 Diflucan Tablet PO 02/26/20 09:01 100 mg QAM DEWAYNE Administration Furosemide 20 mg 02/22/20 09:00 02/25/20 10:28 Lasix Tablet PO 20 mg QAM DEWAYNE Administration Levalbuterol HCl 2 pu
[2020-02-25] MEDS: BISACODYL 10 MG SUPPOSITORY RECTAL (18:02)
[2020-02-26] VITALS (11 sets, daily range): BP systolic 135–152; BP diastolic 72–90; PULSE 86–115; RESP 20–40; TEMP 36.4–38.4; O2SAT 90–100
[2020-02-26] MEDS: DILTIAZEM HCL 30 MG TABLET PO ×3 (00:13→13:49)
[2020-02-26] MEDS: ACETAMINOPHEN 325 MG TABLET 650 MG PO (01:21)
[2020-02-26] MEDS: LEVALBUTEROL HFA (*SP) 15 GM INHALER 2 PUFF INHALATION ×2 (01:25→09:27)
[2020-02-26 02:17] LABS: Basophils Percent Auto 0.2 % (0.2-1.2); Eosinophils Percent Auto 0.2 % (0-4.4); Hematocrit 27.6 % (37.0-47.0); Hemoglobin 8.4 g/dL (12.0-15.0); Immature Granulocyte Absolute 0.71 K/mm3 (0.00-0.031); Immature Granulocyte Percent A 3.4 % (0-0.5); Lymphocytes Percent Auto 4.2 % (18.3-44.2); Mean Corpuscular HGB Conc 30.4 g/dl (32-36); Mean Corpuscular Hemoglobin 28.4 pg (26-34); Mean Corpuscular Volume 93.2 fl (80-100); Mean Platelet Volume 9.7 fl (7.4-10.4); Monocytes Percent Auto 9.4 % (2.6-8.5); Neutrophils Absolute Auto 17.5 K/mm3 (1.3-6.7); Neutrophils Percent Auto 82.6 % (45.5-73.1); Platelet Count Result 345 k/mm3 (150-375); Red Blood Count 2.96 M/mm3 (4.2-5.4); Red Cell Distribution Width 16.4 % (11.5-14.5); White Blood Count 21.2 K/mm3 (4.5-10.0)
[2020-02-26 02:28] LABS: Alanine Aminotransferase 20 U/L (4-35); Alkaline Phosphatase 175 U/L (38-126); Aspartate Amino Transferase 36 U/L (14-36); Bilirubin,Total 0.7 mg/dL (0.2-1.3); Blood Urea Nitrogen 16 mg/dL (7-17); Calcium 8.5 mg/dL (8.4-10.2); Carbon Dioxide 33 mmol/L (22-30); Chloride 88 mmol/L (98-107); Estimated CRCL calculation 86 ml/min; Estimated Glomerular Filt Rate > 60; Glucose 151 mg/dL (65-105); Lactate Dehydrogenase 603 U/L (313-618); Magnesium 1.7 mg/dL (1.6-2.3); Phosphorus 3.2 mg/dL (2.5-4.5); Potassium 3.9 mmol/L (3.4-5.0); Sodium 127 mmol/L (137-145)
[2020-02-26 02:45] LABS: Lactic Acid 0.9 mmol/L (0.7-2.1)
[2020-02-26 02:50] LABS: Alveolar/Arterial O2 Gradient 62.6 mmHg; Base Excess ABG 2.9 mEq/l (+/-2.0); Carboxyhemoglobin 0.1 % THb (0-2.0); Fractional Inspired Oxygen 28 %; HCO3 ABG 28.8 mEq/l (22.0-26.0); Methemoglobin ABG 0.3 %THb (0-1.5); Oxygen Content ABG 13.1 %vol (16.0-22.0); Oxygen Saturation ABG 95.1 % (95.0-100.0); Oxyhemoglobin 93.6 % THb (90.0-100.0); PCO2 ABG 50.3 mmHg (35.0-45.0); PO2 ABG 77.7 mmHg (80.0-100.0); PO2 FiO2 Ratio Arterial Blood 2.77 %; Total Hemoglobin 9.9 g/dL (12.0-18.0); pH ABG 7.375 (7.350-7.450)
[2020-02-26 02:52] LABS: Device NASAL CANNULA; Modified Allen's Test Pass; Site Drawn RIGHT RADIAL
[2020-02-26 02:56] LABS: D Dimer 4.08 ug/mL (<0.48)
[2020-02-26 03:12] LABS: Hypochromasia 1+ (NORMAL); Platelet Estimate Adequate (Adequate)
[2020-02-26 03:13] LABS: Macrocytosis 1+ (NORMAL)
[2020-02-26 03:47] LABS: Influenza Control Positive
--- NOTE | 2020-02-26 03:47 | PM.EVENT ---
Event Note Event Note Event Note: I was called by nursing staff to evaluate the patient on 02/26/2020 around 0130 due to fever 101.2, tachypnea with respiratory rate of 40, and tachycardia and tachycardia. On arrival to the patient's bedside the patient did have shallow rapid respirations. She denied feeling any increased shortness of breath. She denied having any change in chronic cough. She does have venous stasis dermatitis in was recently treated for cellulitis but nursing staff reports that her cellulitis looks improved compared to previous. The patient had already finished a course of antibiotics for cellulitis. Patient's abdomen is obese and with some mild discomfort to palpation in the upper quadrants. She has been passing gas she denies any diarrhea. She had a KUB earlier in the day that demonstrated progression and now severely distended ascending transverse colons with small amount descending colonic sigmoid gas most likely due to colonic ileus. The patient has not had much appetite but denies any nausea or vomiting. She was alert and oriented to person, month, year, date of , age and name of the current president. She was confused as to which hospital she was at. Patient was acutely diaphoretic at the time my evaluation and hot to touch. She was requesting a cool washcloth. Patient was relatively good historian regarding her recent hospitalization. She does have a history of a DVT but has been on Eliquis. Patient's symptoms concerning for sepsis. Stat labs were ordered with his cbc CMP, lactic acid, D-dimer, ferritin, and ABG. The patient's blood gas was relatively stable and CMP were relatively stable. Influenza swab was negative. Her D-dimer was elevated but this is not unexpected given her recent DVT. Ferritin is still pending. Stat chest x-ray was reviewed with findings largely unchanged from prior imaging of mild infiltrates or atelectasis right mid and both lower lungs small pleural effusion gaseous distension of transverse colon however radiologic interpretation pending. 1 hour spent in critical care activities.
--- NOTE | 2020-02-26 08:18 | PM.IMPN ---
Progress Note: A&P Assessment and Plan (1) Dyspnea: Qualifiers: Dyspnea type: shortness of breath Qualified Code(s): R06.02 - Shortness of breath Code(s): R06.00 - Dyspnea, unspecified Status: Acute Assessment and Plan: ABG showing 7.35/48/92 on 2L on 02/20/20 and patient received one dose of oral prednisone. Wheezing resolved. Suspect underlying COPD given her history of chronic morning symptoms. Apnea link positive with AHI 12 and RI 16. Patient probably has undiagnosed YESENIA. Overnight, she developed increasing SOB overnight with fever to 101.2. WBC climbed to 21K. ABG 7.37/50/78 on 2L. She had been on bactrim for 9 days that was stopped on 02/24/20 for a skin infection. Her influenza swab was negative. She is not acidotic and Lactic normal. CXR is unchanged today (and radiology felt mrore likely atelectasis then PNA). Tachypnea could be related to the fever. She may have had infection brewing that was being suppressed by the Bactrim but source unclear. UA and BCx checked. Consider COVID with the elevated DD and Ferritin (LDH normal)but CXR unchanged and not too hypoxic. Doubt VTE given that she is on Eliquis currently at appropriate dose. If UA unremarkable, then will check her for COVID. Doubt CDiff given lack of physical signs or symptoms but still on the list. Continue Rocephin and Azithromycin. Continue Xopenex MDI. (2) Ileus: Code(s): K56.7 - Ileus, unspecified Status: Acute Assessment and Plan: Yesterday on CXR, patient noted to have distended bowel. Obst series obtained and consistent with ileus. Etiology unclear. Patietn asymptomatic with +BMs. She was changed to clear liquid diet and suppositories given. She had a large BM yesterday and one again today. She denies any n/v. No abd pain on exam. Repeat KUB today. If better, then will stop suppositories. Consider CDiff but seems clinically less likely. (3) Atrial fibrillation: Qualifiers: Atrial fibrillation type: unspecified chronic Qualified Code(s): I48.20 - Chronic atrial fibrillation, unspecified Code(s): I48.91 - Unspecified atrial fibrillation Status: Chronic Assessment and Plan: Heart rate was elevated so Diltiazem added on 02/19. HR reviewed on 02/26/20. HR elevated overnight related to the fever but otherwise better controlled. Currently anticoagulation with Eliquis. Continue Diltiazem and metoprolol. Continue to monitor heart rate. Change to Diltiazem CD. (4) Cellulitis: Qualifiers: Site of cellulitis: extremity Site of cellulitis of extremity: lower extremity Laterality: right Qualified Code(s): L03.115 - Cellulitis of right lower limb Code(s): L03.90 - Cellulitis, unspecified Status: Acute Assessment and Plan: Patient had a right antecubital fossa infection with purulent draianage on 02/12/20. Swab culture showing MERCEDES. MRSA nasal swab and BCx were negative. She completed a course of Bactrim on 02/24/20. Condition clinically has resolved. Continue Eucerin and dressing changes to the right lower extremtiy. (5) Congestive heart failure: Qualifiers: Heart failure type: diastolic Heart failure chronicity: acute on chronic Qualified Code(s): I50.33 - Acute on chronic diastolic (congestive) heart failure Code(s): I50.9 - Heart failure, unspecified Status: Chronic Assessment and Plan: Chest x-ray on 02/17/2020 showing discoid atelectasis and pulmonary vascular congestion. CT of the chest on 02/19/2020 reviewed showing small right pleural effusion. No pulmonary edema noted. Echo on 02/18 showing EF 50-55%. Patient takes Lasix 10 mg at home daily. Was treated with higher doses on Lasix initially but now back down to Lasix 20mg daily. CXR today reviewed showing mild infiltrate or atelectasis in the right mid and lower lung field and small right pleural effusion that is without change (
[2020-02-26] MEDS: APIXABAN 5 MG TABLET PO (08:49)
[2020-02-26] MEDS: ATORVASTATIN 10 MG TABLET PO (08:50)
[2020-02-26] MEDS: CHOLECALCIFEROL 1,000 UNIT TABLET 1000 UNITS PO (08:51)
[2020-02-26] MEDS: METOPROLOL TARTRATE 12.5 MG TABLET PO (08:51)
[2020-02-26] MEDS: FLUCONAZOLE 100 MG TABLET PO (08:51)
[2020-02-26] MEDS: FERROUS SULFATE 324 MG TABLET PO (08:51)
[2020-02-26] MEDS: FUROSEMIDE 20 MG TABLET PO (08:51)
[2020-02-26] MEDS: NEOMYCIN/POLYMYXIN/BACITRACIN OINTMENT 15 GM TUBE 1 APPLIC TOPICAL (08:52)
[2020-02-26] MEDS: polyethylene glycoL 3350 17 GM POWD.PACK PO (08:52)
[2020-02-26] MEDS: EUCERIN CREAM 120 GM JAR 1 APPLIC TOPICAL (08:52)
[2020-02-26] MEDS: TOLNAFTATE 1% POWDER 45 GM BTL 1 APPLIC TOPICAL (08:52)
[2020-02-26] MEDS: BISACODYL 10 MG SUPPOSITORY RECTAL (08:56)
[2020-02-26 11:43] LABS: Add Urine Microscopic? YES; Appearance Urine Cloudy (Clear); Bacteria Urine 1+ /hpf; Bilirubin Urine Negative (Negative); Blood Urine 2+ (Negative); Cellular Casts Urine Present /lpf; Color Urine Yellow (Yellow); Glucose Urine UA Negative (Negative); Granular Casts Urine 20-29 /lpf; Hyaline Casts Urine 30-49 /lpf; Ketones Urine Negative (Negative); Leukocyte Esterase Ur Trace LEU/UL (Negative); Mucus Urine Rare /lpf; Nitrate Urine Negative (Negative); Protein Urine 2+ mg/dL (Negative); RBC Urine 21-50 /hpf (0-2); Specific Grav Ur 1.019 (1.001-1.035); Squamous Epithelial Cell Urine Many /hpf (Few); Transitional Epi Cells Urine Few /hpf (None Seen); WBC Clumps Urine Present /HPF; WBC Urine 21-30 /hpf
--- NOTE | 2020-02-26 11:56 | PCPTNOTE ---
25 missed therapy minutes this date secondary to patient fatigue, labored breathing, and request for rest. Will attempt missed minutes this PM.
--- NOTE | 2020-02-26 12:09 | WPDNEURORHBP ---
Subjective Date/time seen: Dr Teresa arthur involved in care ,difficulty in breathing with crhdmgawhrte76/06/20 12:09 Review of Systems Review of Systems: All systems reviewed & are unremarkable except as noted in HPI and below Functional Status Ambulation Ability Ability to Ambulate 10 Feet: Contact Guard Ability to Ambulate 50 Feet With 2 Turns: Contact Guard Ability to Ambulate 150 Feet: Contact Guard Ambulation Assistive Devices: Cane Transfers Ability Ability to Transfer In/Out of Chair: Minimum Assistance X 1 Exam Const: General: cooperative, alert and awake Orientation/consciousness: patient oriented x3 Eyes: General: appearance normal, both eyes and all related structures Neck: Neck: full ROM Resp: Effort & Inspection: abnormal respiratory pattern and respiratory distress Auscultation: rhonchi Cardio: Palpation: normal PMI Rate: regular rate Rhythm: regular rhythm Peripheral pulses: Peripheral pulses 2+ throughout GI: Auscultation: normal bowel sounds Skin: General skin exam: no rashes or lesions noted Neuro: General: patient oriented x3 and moves all extremities Cranial nerves: Yes CN's II-XII intact bilaterally, Yes Equal, round and reactive pupils present, Yes Bilaterally intact EOM present, Yes Nystagmus not present, Yes Normal facial strength present, Yes Midline tongue present, Yes Ability to bilaterally rotate head present and Yes Ability to bilaterally elevate shoulders present Cognition (Neuro): normal cognition Gait exam (Neuro): Unable to assess gait Motor exam (neuro): Abnormal motor strength present (4/5 generally) Deep tendon reflexes (DTR's): Right triceps reflex intensity grade: 1+, Left triceps reflex intensity grade: 1+, Rt Biceps (C5, C6): 1+, Left biceps reflex intensity grade: 1+, Right brachioradialis reflex intensity grade: 1+, Left brachioradialis reflex intensity grade: 1+, Right patellar reflex intensity grade: 1+, Left patellar reflex intensity grade: 1+, Right ankle reflex intensity grade: 0 and Left ankle reflex intensity grade: 0 Plantar Reflex Responses: downgoing: bilateral Psych: Appearance: grossly normal Objective Data Vital Signs Vital Signs: Vital Signs - 24 hr 02/25/20 14:00 02/25/20 19:59 02/25/20 20:14 Temperature 36.6 C Pulse Rate 86 86 98 Respiratory Rate 22 H 18 Blood Pressure 133/61 Pulse Oximetry 99 93 02/25/20 21:03 02/26/20 01:21 02/26/20 01:23 Temperature 36.5 C 38.3 C H 38.4 C H Pulse Rate 82 108 H Respiratory Rate 32 H 40 H Blood Pressure 133/72 135/78 Pulse Oximetry 98 94 02/26/20 01:25 02/26/20 01:47 02/26/20 04:00 Temperature 38.2 C H 37.4 C Pulse Rate 86 106 H 104 H Respiratory Rate 24 H 40 H 38 H Blood Pressure 140/90 144/75 H Pulse Oximetry 95 94 02/26/20 06:00 02/26/20 06:14 02/26/20 08:51 Temperature 36.6 C 37.7 C H Pulse Rate 90 90 Respiratory Rate 20 Blood Pressure 151/72 H Pulse Oximetry 100 02/26/20 09:27 02/26/20 10:00 Temperature 36.4 C L Pulse Rate 115 H 114 H Respiratory Rate 30 H 40 H Blood Pressure 142/84 H Pulse Oximetry 92 93 Intake/Output Intake/Output: Intake & Output 02/23/20 02/24/20 02/25/20 02/26/20 23:59 23:59 23:59 23:59 Intake Total 480 960 720 480 Balance 480 960 720 480 Meds/Results Medications: Active Medications Generic Name Dose Route Start Last Admin Trade Name Freq PRN Reason Stop Dose Admin Acetaminophen 650 mg 02/13/20 14:44 02/26/20 01:21 Tylenol Tablet PO 650 mg Q4H PRN Administration Fever >101 Hydrocodone Bitart/Acetaminophen 1 tab 02/12/20 17:50 02/25/20 16:35 [place] 5-325 Mg PO 1 tab Q4H PRN Administration Pain Apixaban 5 mg 02/13/20 09:00 02/26/20 08:49 Eliquis PO 5 mg BID DEWAYNE Administration Atorvastatin Calcium 10 mg 02/20/20 09:00 02/26/20 08:50 Lipitor PO 10 mg DAILY DEWAYNE Administration Bisacodyl 10 mg 02/26/20 09:00 02/26/20 08:56 Dulcolax Suppository
--- NOTE | 2020-02-26 12:11 | PCDIET ---
Nutrition Follow-Up Complete: Nutrition Diagnosis: Obesity related to history of excessive energy intake/inadequate energy expenditure as evidenced by BMI of 51.5. Nutrition Goal: Patient to consume 75% of meals. Goal not met. Patient previously with fair intake, but now on clear liquid diet due to presumed ileus. Last recorded weight is 127.8 kg. Recommend obtaining new weight. Bowel Motility: +BM today. Labs Reviewed: Glu (151), Na (127), Alb (3.0), Ferritin (714) Meds Noted: Zithromax, Dulcolax, Ferrous Sulfate, Lasix, Miralax, Vitamin D Additional Notes: Right leg with stasis ulcer; abdomen macerated. Agree with clear liquid diet. Dietary department will provide Ensure Clear (240kcal, 8g protein) on meal trays until diet advances. Will continue to monitor with same goal. Nutrition Monitoring and Evaluation: Follow up every 3 days.
--- NOTE | 2020-02-26 12:55 | PC.NURSE ---
Right AC abcess appears healed with no open area or redness.
[2020-02-26 14:38] LABS: Glucose Point of Care 186 (65-105)
--- NOTE | 2020-02-29 12:19 | DS_ITS ---
DATE OF DISCHARGE: 02/26/2020 DISCHARGE ACUTE REHABILITATION DIAGNOSIS: Major multiple trauma without brain or spinal injuries with etiological diagnosis of comminuted left humerus fracture, T6 compression fracture, L4 compression fracture. DISCHARGE ACTIVE COMORBID CONDITIONS: 1. Hypertension. 2. Hypercholesterolemia. 3. Obesity. 4. Congestive heart failure. 5. Atrial fibrillation. REASON FOR ADMISSION: This 69 years old right-handed female presented to [facility] on 02/07/2020, subsequent to fall from standing. Initial radiological investigation documented left humerus fracture and T6 fracture. She was transferred to [facility] same day. Neurosurgical service was consulted for the spinal fractures and recommended no acute surgical intervention. Ordered TLSO brace to be worn when out of bed. She was to follow up with the physician in 6 weeks with repeat x-ray of the thoracic spine. Orthopedic service was consulted for the left humerus fracture and recommended no acute surgical intervention. She was made nonweightbearing to the left upper extremity to the extent that she should not move on the shoulder area and was given a sling for comfort and she was to follow up with the orthopedic physician in 2 weeks at [facility]. General Medicine was also consulted to review the reason for fall and attributed the fall to the electrolyte imbalance with over-diuresis. Wound nurse was also consulted for the right lower extremity venous stasis and dermatitis. The patient was discharged to us on Eliquis for DVT prophylaxis. LEVEL OF FUNCTION AT THE TIME OF ADMISSION: Independent for eating, supervision for oral hygiene; dependent for toileting, bathing, upper body dressing, lower body dressing, and footwear; partial assistance for rolling in bed, sit to lying, substantial assistance for sit to lying; partial assistance for sit to stand, toilet transfer, car transfer, walking 10 feet, 50 feet with 2 turns, 150 feet. She was unable to walk 10 feet on uneven surfaces, required partial assistance, and so as for the curb or step, 4 steps, 12 steps; required supervision for picking up the object. Wheelchair obviously was not applicable. ANTICIPATED REHABILITATION GOALS AT THE TIME OF ADMISSION: To make her independent eating and oral hygiene, substantial assistance for the toileting, partial assistance for bathing, substantial for upper body dressing, partial for lower body dressing and footwear, independent for rolling in bed, partial for sit to lying, lying to sitting; independent for sit to stand, chair transfer; supervision for toilet transfer, independent for the car transfer, 10 feet walking, 50 feet walking with 2 turns, 150 feet walking, walking 10 feet on uneven surfaces, curb or step, 4 steps, 12 steps, and picking up the object. HOSPITAL COURSE: During the hospitalization, the patient was involved actively in physical therapy and occupational therapy. She was also seen by the hospitalist as a care consultant and followed by them also intermittently. Towards the end of the hospitalization, GI consultation was also obtained with Dr. Elder Verma. As per his last recommendation, she had the ileus. On the last day of hospitalization here, she was able to ambulate 10 feet with contact guard; 50 feet with 2 turns, contact guard; 150 feet with contact guard using a cane. She was able to transfer in and out of chair with minimum assistance of one. Her general physical examination was stable and neuro examination was essentially unchanged, but she was noted to have the persistent gaseous distention of the colon likely secondary to adynamic ileus on the flat plate of abdomen and she was transferred from the rehab on 02/26/2020. DISCHARGE MEDICATIONS: At the time
== END 2020-02-26 14:29 | disposition short-term general hospital (02) | DRG 559 ==
PROVIDERS: Internal Medicine; Nurse Practitioner; Admitting Provider Psychiatry & Neurology Neurology; PCP Internal Medicine Infectious Disease; Visit Provider Psychiatry & Neurology Neurology
DX: S42.292D Other displaced fracture of upper end of left humerus, subsequent encounter for fracture with routine healing (principal); I50.33 Acute on chronic diastolic (congestive) heart failure; Z68.43 Body mass index [BMI] 50.0-59.9, adult; L03.113 Cellulitis of right upper limb; J90 Pleural effusion, not elsewhere classified; J44.1 Chronic obstructive pulmonary disease with (acute) exacerbation; K56.7 Ileus, unspecified; I48.20 Chronic atrial fibrillation, unspecified; R50.9 Fever, unspecified; S32.040D Wedge compression fracture of fourth lumbar vertebra, subsequent encounter for fracture with routine healing; S22.050D Wedge compression fracture of T5-T6 vertebra, subsequent encounter for fracture with routine healing; B95.8 Unspecified staphylococcus as the cause of diseases classified elsewhere; D63.8 Anemia in other chronic diseases classified elsewhere; E78.00 Pure hypercholesterolemia, unspecified; E66.01 Morbid (severe) obesity due to excess calories; G47.30 Sleep apnea, unspecified; I11.0 Hypertensive heart disease with heart failure; I87.2 Venous insufficiency (chronic) (peripheral); L89.151 Pressure ulcer of sacral region, stage 1; R60.0 Localized edema; Z86.718 Personal history of other venous thrombosis and embolism; Z87.891 Personal history of nicotine dependence; Z79.01 Long term (current) use of anticoagulants; W19.XXXD Unspecified fall, subsequent encounter
CPT/HCPCS: 36415; 36600; 71045; 71046; 71260; 74019; 74160; 80048; 80053; 80069; 81001; 82375; 82728; 82805; 83050; 83605; 83615; 83735; 84100; 85025; 85380; 87040; 87070; 87077; 87081; 87086; 87147; 87186; 87205; 87804; 93005; 94640; 94762; 97110; 97116; 97161; 97166; 97530; 97535; A4565; A9270; C8929; J0456; J0696; J2930; J7512; Q9957; Q9967

== ENCOUNTER 2020-02-26 14:21 | Inpatient (IN) | payer MEDICARE, MEDICAID, SELFPAY ==
[2020-02-26] VITALS (11 sets, daily range): BP systolic 115–124; BP diastolic 78–93; PULSE 72–115; RESP 18–32; TEMP 36.7–36.9; O2SAT 92–100; BMI 51.1
--- NOTE | ~2020-02-26 | XR_ITS ---
EXAMINATION: XR chest 1V portable DATE: 02/29/2020 06:11 INDICATION: Bilateral infiltrates. Hypercapnic respiratory failure. TECHNIQUE: A single frontal view of the chest was obtained. COMPARISON: Chest single view 02/28/2020 FINDINGS: Sensitivity is decreased by obesity. The patient is rotated to her left. The lung volumes a re small. There are airspace opacities in right mid and lower lung zones and left lower lung zone. Th ere is a small right pleural effusion. There is a prominent paracardial fat pad on the left. No pneum othorax. Cardiomegaly is noted. The endotracheal tube tip is 1.5 cm above the marah. There is a suba cute fracture of proximal left humerus. There is an old healed fracture deformity of proximal right h umerus. IMPRESSION: 1. Airspace opacities in right mid and lower lung zones and left lower lung zone with worsening at le ft lung base and improvement in left midlung zone, consistent with atelectasis versus pneumonia. 2. Stable small right pleural effusion. 3. Cardiomegaly. Reviewed, dictated and finalized at location A. IMPRESSION: 1. Airspace opacities in right mid and lower lung zones and left lower lung zon e with worsening at left lung base and improvement in left midlung zone, consis tent with atelectasis versus pneumonia. 2. Stable small right pleural effusion. 3. Cardiomegaly.
--- NOTE | ~2020-02-26 | XR_ITS ---
EXAMINATION: XR abdomen obstructive series DATE: 03/01/2020 06:29 INDICATION: Adynamic ileus. TECHNIQUE: Upright and supine views of the abdomen on 3 radiographs were obtained. COMPARISON: Abdomen radiographs 02/29/2020 FINDINGS: There is gaseous distention of the colon. The small bowel is normal in caliber. No free int raperitoneal gas. The nasogastric tube tip is in the stomach. There is a stent in right common iliac vein. There is a central venous catheter overlying left pelvis. IMPRESSION: 1. Persistent gaseous distention of the colon, likely adynamic ileus. Reviewed, dictated and finalized at location A.
--- NOTE | ~2020-02-26 | XR_ITS ---
EXAMINATION: XR chest PICC line DATE: 03/08/2020 06:12 INDICATION: Central line placement. TECHNIQUE: A single frontal view of the chest was obtained. COMPARISON: Chest single view 03/06/2020 FINDINGS: The patient is rotated to her left. There are airspace opacities in all lung zones bilatera lly with a perihilar and lower lung predominance. There are small pleural effusions. No pneumothorax. Cardiomegaly is noted. A right upper extremity peripherally inserted central venous catheter (PICC) is seen with tip at the superior cavoatrial junction. IMPRESSION: 1. PICC tip at the superior cavoatrial junction. 2. Worsened diffuse lung disease, consistent with pulmonary edema versus pneumonia. 3. Stable small pleural effusions. 4. Cardiomegaly. Reviewed, dictated and finalized at location A. IMPRESSION: 1. PICC tip at the superior cavoatrial junction. 2. Worsened diffuse lung disease, consistent with pulmonary edema versus pneumo aida. 3. Stable small pleural effusions. 4. Cardiomegaly.
--- NOTE | ~2020-02-26 | XR_ITS ---
EXAMINATION: XR chest 1V portable DATE: 02/28/2020 06:05 INDICATION: Bilateral infiltrates. Hypercapnic respiratory failure. TECHNIQUE: A single frontal view of the chest was obtained. COMPARISON: Chest single view 02/26/2020, chest CT 02/19/2020 FINDINGS: The lung volumes are small. There is a small right pleural effusion. There are airspace opa cities in the mid and lower lung zones. No pneumothorax. Cardiomegaly is noted. The endotracheal tube tip is 2.0 cm above the marah. The nasogastric tube extends at least to the stomach, but is not wel l-visualized in the abdomen. There is an old fracture deformity of proximal right humerus. There is a subacute fracture deformity of proximal left humerus. IMPRESSION: 1. Worsened airspace opacities in the mid and lower lung zones, consistent with pneumonia versus pulm onary edema. 2. Stable small right pleural effusion. 3. Cardiomegaly. Reviewed, dictated and finalized at location A. IMPRESSION: 1. Worsened airspace opacities in the mid and lower lung zones, consistent with pneumonia versus pulmonary edema. 2. Stable small right pleural effusion. 3. Cardiomegaly.
--- NOTE | ~2020-02-26 | XR_ITS ---
EXAMINATION: XR abdomen obstructive series DATE: 03/03/2020 09:24 INDICATION: Adynamic ileus. TECHNIQUE: Upright and supine views of the abdomen on 3 radiographs were obtained. COMPARISON: Abdomen radiographs 03/02/2020 FINDINGS: There is gaseous distention of the transverse colon. The small bowel is normal in caliber. No free intraperitoneal gas. The nasogastric tube tip is in the stomach. There is a stent in right co mmon iliac vein. There is a central venous catheter in left groin. IMPRESSION: 1. Persistent gaseous distention of the transverse colon, likely adynamic ileus. Reviewed, dictated and finalized at location A. IMPRESSION: 1. Persistent gaseous distention of the transverse colon, likely adynamic ileus .
--- NOTE | ~2020-02-26 | XR_ITS ---
EXAMINATION: XR abdomen obstructive series DATE: 03/02/2020 08:51 INDICATION: Adynamic ileus. Small bowel obstruction. TECHNIQUE: Upright and supine views of the abdomen on 3 radiographs were obtained. COMPARISON: CT abdomen and pelvis 02/19/2020 FINDINGS: There is gaseous distention of the colon. There are no dilated loops of small bowel. No margareth e intraperitoneal gas. The nasogastric tube tip is in the stomach. There is a stent in right common i liac vein. There are small pleural effusions. IMPRESSION: 1. Persistent gaseous distention of the stomach, likely adynamic ileus. Reviewed, dictated and finalized at location A.
--- NOTE | ~2020-02-26 | XR_ITS ---
EXAMINATION: XR chest 1V portable EXAM DATE: 02/26/2020 15:02 INDICATION: Declining respiratory status. TECHNIQUE: Portable AP frontal chest x-ray was obtained. Comparison is made to prior examination from earlier same date. FINDINGS: There is cardiomegaly and pulmonary vascular congestion. Developing small pleural effusions and mild progression in indistinct airspace disease, could be edema or infection. There is no pneumo thorax suspected. There are no osseous abnormalities identified. IMPRESSION: 1. Congestive changes, possible CHF exacerbation. 2. Mild progression in the ill-defined airspace disease. Reviewed, dictated and finalized at location B.
--- NOTE | ~2020-02-26 | XR_ITS ---
EXAMINATION: XR chest 1V portable DATE: 03/03/2020 06:31 INDICATION: Bilateral infiltrates. Hypercapnic respiratory failure. TECHNIQUE: A single frontal view of the chest was obtained. COMPARISON: Chest single view 03/02/2020 FINDINGS: The patient is rotated to her left. Sensitivity is decreased by obesity. There are airspace opacities in the mid and lower lung zones with a basilar and perihilar predominance. There is a smal l right pleural effusion. No pneumothorax. Cardiomegaly is noted. There is a prominent left paracardi al fat pad. The endotracheal tube tip is 1.5 cm above the marah. The nasogastric tube tip is beyond the inferior margin of the radiograph, but at least to the stomach. There is an old healed fracture deformity of proximal right humerus. There is a subacute fracture of proximal left humerus. IMPRESSION: 1. Airspace opacities in the mid and lower lung zones with worsening at left lung base, consistent wi th atelectasis versus pneumonia. 2. Stable small right pleural effusion. 3. Cardiomegaly. Reviewed, dictated and finalized at location A. IMPRESSION: 1. Airspace opacities in the mid and lower lung zones with worsening at left nelson ng base, consistent with atelectasis versus pneumonia. 2. Stable small right pleural effusion. 3. Cardiomegaly.
--- NOTE | ~2020-02-26 | XR_ITS ---
EXAMINATION: XR chest 1V portable DATE: 03/05/2020 05:57 INDICATION: Pneumonia TECHNIQUE: frontal view of the chest was obtained. COMPARISON: Chest radiograph dated 03/04/2020 FINDINGS: Bilateral airspace opacities relatively sparing the left upper lung zone with improvement in the left lower lung zone and new opacities in the right upper lung zone. Bilateral pleural effusions, small o n the left and [id number] on the right. No pneumothorax. Cardiomegaly. Prominent azygos vein. Chronic fracture deformity at the proximal left humerus. IMPRESSION: 1. Bilateral airspace opacities with improvement at the left lung base and worsening in the right upp er lung zone consistent with small left and iyyxr-xi-qwabgcdv right pleural effusions with associated atelectasis and/or pneumonia. 2. Cardiomegaly. Reviewed, dictated and finalized at location A. IMPRESSION: 1. Bilateral airspace opacities with improvement at the left lung base and wors ening in the right upper lung zone consistent with small left and qaovd-cd-ganw rate right pleural effusions with associated atelectasis and/or pneumonia. 2. Cardiomegaly.
--- NOTE | ~2020-02-26 | XR_ITS ---
XR chest ET placement 02/26/2020 18:35 Indication: Intubation. Respiratory distress. Procedure: AP portable chest Comparison: Comparison to multiple prior studies sequentially, with oldest reviewed study dated 02/16. Findings: Endotracheal tube 2.2 cm above the marah. Cardiomegaly. Patchy bilateral airspace disease. Small right pleural effusion. No pneumothorax. Impression: 1: Patchy bilateral airspace disease which may represent combination of pneumonia, edema and/or atele ctasis. 2: Small right pleural effusion. Reviewed, dictated and finalized at location A. Impression: 1: Patchy bilateral airspace disease which may represent combination of pneumon ia, edema and/or atelectasis. 2: Small right pleural effusion.
--- NOTE | ~2020-02-26 | XR_ITS ---
EXAMINATION: XR abdomen obstructive series DATE: 03/05/2020 11:10 INDICATION: Ileus. TECHNIQUE: Supine and upright views of the abdomen. FINDINGS: Comparison to multiple prior studies sequentially, with oldest reviewed study dated 020. There is bilateral airspace disease. Please refer to chest x-ray report dated 03/05/2020.. There is a nonobstructive bowel gas pattern. Gas and stool are seen throughout the colon to the level of the rec isis. There is no free air. Right iliac stents. IMPRESSION: 1. Nonobstructive bowel gas pattern. Reviewed, dictated and finalized at location A.
--- NOTE | ~2020-02-26 | XR_ITS ---
EXAMINATION: XR abdomen obstructive series DATE: 02/29/2020 06:11 INDICATION: Bilateral infiltrates. Hypercapnic respiratory failure. TECHNIQUE: Upright and supine views of the abdomen on 3 radiographs were obtained. COMPARISON: Abdomen radiographs 02/28/2020 FINDINGS: There is gaseous distention of the colon. The small bowel is normal in caliber. No free int raperitoneal gas. The nasogastric tube tip is in the stomach. There is a stent in right common iliac vein. There is a central venous catheter overlying left pelvis. The nasogastric tube tip is in the st omach. IMPRESSION: 1. Persistent gaseous distention of the colon, likely adynamic ileus. Reviewed, dictated and finalized at location A.
--- NOTE | ~2020-02-26 | XR_ITS ---
XR chest 2V DATE: 03/11/2020 09:48 INDICATION: Congestive heart failure TECHNIQUE: AP and lateral views COMPARISON: 03/08/2020 portable AP chest at 0612 hours FINDINGS: Right upper extremity PIC catheter tip overlies superior vena cava. Cardiomegaly. Pulmonary vascular redistribution. Aortic calcification and unfolding. There are bilate ral lower lung and right mid lung infiltrates and/or atelectasis, improved since 03/08/2020. Mild pleu ral effusions. Diffuse osteopenia. There is gibbus deformity of the mid thoracic spine, likely due to fractures of u ncertain age, not well-demonstrated. IMPRESSION: Congestive changes and bilateral infiltrates, moderately improved since 03/08/2020, sugges ting improvement of congestive heart failure and pulmonary edema Reviewed, dictated and finalized at location A. IMPRESSION: Congestive changes and bilateral infiltrates, moderately improved s jose manuel 03/08/2020, suggesting improvement of congestive heart failure and pulmonar y edema
--- NOTE | ~2020-02-26 | XR_ITS ---
EXAMINATION: XR chest 1V portable INDICATION: Pulmonary edema TECHNIQUE: Portable AP chest at 0746 hours COMPARISON: 03/05/2020 FINDINGS: The nasogastric tube is followed as far as the stomach. Its tip is beyond the inferior beto in of the radiograph. A right upper extremity PICC ends in the distal superior vena cava. Small pleur al effusions are unchanged. Diffuse airspace opacities persist but have improved. There is no pneumot horax. Stable cardiomegaly is noted. IMPRESSION: 1. Persistent but improved airspace opacities, consistent with atelectasis versus pneumonia. 2. Small pleural effusions, stable. 3. Cardiomegaly. Reviewed, dictated and finalized at location A. IMPRESSION: 1. Persistent but improved airspace opacities, consistent with atelectasis vers us pneumonia. 2. Small pleural effusions, stable. 3. Cardiomegaly.
--- NOTE | ~2020-02-26 | XR_ITS ---
EXAMINATION: XR chest 1V portable DATE: 03/01/2020 06:29 INDICATION: Bilateral infiltrates. Hypercapnic respiratory failure. TECHNIQUE: A single frontal view of the chest was obtained. COMPARISON: Chest single view 02/29/2020, chest CT 02/19/2020 FINDINGS: The patient is rotated to her left. There is a small right pleural effusion. There are airs pace opacities in the mid and lower lung zones. No pneumothorax. Cardiomegaly is noted. There is a pr ominent left paracardial fat pad. The endotracheal tube tip is 1.7 cm above the marah. The nasogastr ic tube tip is beyond the inferior margin of the radiograph, but at least to the stomach. IMPRESSION: 1. Stable airspace opacities in the mid and lower lung zones, consistent with atelectasis versus pneu monia. 2. Stable small right pleural effusion. 3. Cardiomegaly. Reviewed, dictated and finalized at location A. IMPRESSION: 1. Stable airspace opacities in the mid and lower lung zones, consistent with a telectasis versus pneumonia. 2. Stable small right pleural effusion. 3. Cardiomegaly.
--- NOTE | ~2020-02-26 | XR_ITS ---
XR chest PICC line 03/04/2020 15:32 Indication: Hypercapnic respiratory failure. PICC line placement. Procedure: AP portable chest Comparison: Comparison to multiple prior studies sequentially, with oldest reviewed study dated 07/2020. Findings: Cardiomegaly with pulmonary edema. Bilateral pleural effusions. NG tube passes into the sto mach, tip not evaluated. Endotracheal tube not definitely visualized on the current study. Right subc lavian PICC line tip in the SVC. No pneumothorax. Impression: 1: Cardiomegaly with persistent pulmonary edema. Superimposed pneumonia not excluded. Reviewed, dictated and finalized at location A. Impression: 1: Cardiomegaly with persistent pulmonary edema. Superimposed pneumonia not exc luded.
--- NOTE | ~2020-02-26 | XR_ITS ---
EXAMINATION: XR abdomen NG/feed tube insert EXAM DATE: 02/26/2020 15:02 INDICATION: Feeding tube insertion. TECHNIQUE: Frontal projection(s) of the abdomen for interpretation. Comparison is made to prior exami nation from 02/26/2020. FINDINGS: Feeding tube identified, in expected position. Severely distended colon again noted, most likely colonic adynamic ileus. No small bowel dilation. There is a right-sided iliac venous stent. Ca rdiomegaly. IMPRESSION: 1. Feeding tube in position. 2. Severely distended colon most likely adynamic ileus. Reviewed, dictated and finalized at location B.
--- NOTE | ~2020-02-26 | XR_ITS ---
EXAMINATION: XR chest 1V portable DATE: 03/02/2020 06:23 INDICATION: Bilateral infiltrates. Hypercapnic respiratory failure. TECHNIQUE: A single frontal view of the chest was obtained. COMPARISON: Chest single view 03/01/2020 FINDINGS: There is a small right pleural effusion. There are airspace opacities in right mid and lowe r lung zones and left lower lung zone with a basilar predominance. No pneumothorax. Cardiomegaly is n oted. There is a prominent left paracardial fat pad. The endotracheal tube tip is 2.7 cm above the ca jonathan. The nasogastric tube tip is beyond the inferior margin of the radiograph, but at least to the s tomach. IMPRESSION: 1. Airspace opacities in right mid and lower lung zones and left lower lung zone with slight improvem ent, consistent with atelectasis versus pneumonia. 2. Stable small right pleural effusion. 3. Cardiomegaly. Reviewed, dictated and finalized at location A. IMPRESSION: 1. Airspace opacities in right mid and lower lung zones and left lower lung zon e with slight improvement, consistent with atelectasis versus pneumonia. 2. Stable small right pleural effusion. 3. Cardiomegaly.
--- NOTE | ~2020-02-26 | XR_ITS ---
EXAMINATION: XR abdomen obstructive series DATE: 02/27/2020 06:32 INDICATION: Adynamic ileus. TECHNIQUE: Upright and supine views of the abdomen were obtained. COMPARISON: CT abdomen 02/19/2020, chest single view 02/26/2020 FINDINGS: There is gaseous distention of the colon. There are no dilated loops of small bowel. The na sogastric tube tip is in the stomach. No free intraperitoneal gas. Cardiomegaly is noted. There is a stent in right common iliac vein. There is a small right pleural effusion. There are airspace opaciti es at the lung bases. IMPRESSION: 1. Gaseous distention of the colon, likely adynamic ileus. 2. Stable small right pleural effusion. 3. Stable airspace opacities at the lung bases, consistent with atelectasis versus pneumonia. 4. Cardiomegaly. Reviewed, dictated and finalized at location A. IMPRESSION: 1. Gaseous distention of the colon, likely adynamic ileus. 2. Stable small right pleural effusion. 3. Stable airspace opacities at the lung bases, consistent with atelectasis vivek elliot pneumonia. 4. Cardiomegaly.
--- NOTE | ~2020-02-26 | XR_ITS ---
EXAMINATION: XR abdomen obstructive series DATE: 02/28/2020 06:05 INDICATION: Adynamic ileus. TECHNIQUE: Upright and supine views of the abdomen on 3 radiographs were obtained. COMPARISON: Abdomen radiographs 02/27/2020 FINDINGS: There is gaseous distention of the colon. The small bowel is normal in caliber. The nasogas tric tube tip is in the stomach. No free intraperitoneal gas. There is a left inguinal central venous catheter with tip overlying the left pelvis. There is a stent in right common iliac vein. IMPRESSION: 1. Gaseous distention of the colon, likely adynamic ileus. Reviewed, dictated and finalized at location A.
--- NOTE | 2020-02-26 14:21 | PC.NURSE ---
This patient, Trina Larkin, was admitted to IMU Room 202-. Patient/family oriented to hospital policies and general routines including ID bracelet, bed and alarms, visiting hours, pain management, procedures, bathroom and other care routines, personal items, smoking policy, room service/diet, and visiting hours. Valuables list has been completed. Information on how to activate the Rapid Response Team has been discussed. Patient/Family are encouraged to report perceived risks to care and to ask questions if they do not understand what they are told or what they should do.
[2020-02-26 14:49] LABS: Alveolar/Arterial O2 Gradient 177.9 mmHg; Base Excess ABG 5.7 mEq/l (+/-2.0); Fractional Inspired Oxygen 50 %; HCO3 ABG 34.3 mEq/l (22.0-26.0); Oxygen Content ABG 13.8 %vol (16.0-22.0); Oxygen Saturation ABG 95.9 % (95.0-100.0); Oxyhemoglobin 95.3 % THb (90.0-100.0); PO2 ABG 93.7 mmHg (80.0-100.0); PO2 FiO2 Ratio Arterial Blood 1.87 %; Total Hemoglobin 10.2 g/dL (12.0-18.0)
--- NOTE | 2020-02-26 14:49 | PM.IMHP ---
H&P: HPI History of Present Illness Chief complaint: Acute respiratory failure Narrative: 69yo female transferred from the [facility] for respiratory failure. The patient was originally admitted to the [facility] on 02/12/20 for rehab after sustaining a thoracic and left humeral fracture after a fall. Patient was at [facility] but transferred to [facility] and seen by orthopedics and neurosurgery. Surgery was not recommended and patient was fitted for a TLSO brace. In the [facility], patient was noted to have purulent material from the right antecubtail fossa and wound and Blood cx obtained on 02/11. Wound Cx grew out oxacillin sensitive staph aureus that was treated with Bactrim. Blood culture and MRSA nasal swab were negative. Hospitalist service was consulted for SOB felt to be CHF. Echo on 02/18 showing EF 50-55% but poor quality overall. CT of Chest and Abd showing dependent atelecetasis, small right pleural effusion and liquid stool. Lasix was increased from baseline 10mg daily to 40mg BID for a few days then titrated back down to 20mg daily. She was also wheezing but does not have COPD. She does however provides a hx of chronic morning cough. She received Prednisone once on 02/19 with benefit. She also has a hx of DVT and AFib and was maintained on Eliquis. Apnea link also was positive. The Bactrim stopped on 02/23. CXR on 02/24 showing mild bibasilar infiltrates. Incidental finding of distended colon. She was on Protem but receiving 1-2 doses per day over the last few days. Patient asymptomatic from the colon distention but she was changed to clear liquid diet and suppositories ordered with good results. Overnight, patient more SOB and developed fever. Influenza negative. Repeat CXR unchanged. ABG showing 7.37/50/78 which is not significnatly different then ABG on 02/19. WBC 21K this morning. Blood and Urine Cx obtained and patient started on abx. Patient's condition worsened with increasing SOB. She was moved to the IMU and BiPAP started. ABG now 7.27/75/94. Repeat ABG minimally improved so she was intubated. Central line and NG tube placed. patient unable to provide review of systems at this time. Review of Systems Review of Systems: ROS unobtainable: Yes unobtainable due to endotracheal tube and unobtainable due to mental status PMFSH Past Medical History Medical History Atrial fibrillation Congestive heart failure DVT (deep venous thrombosis) Hypertension Left humeral fracture Morbid obesity Venous stasis dermatitis Surgical History Surgical History H/O hernia repair Ventral S/P appendectomy Family History Family History Sibling Esophagus cancer Liver disease Heart disease Father Heart disease Mother Heart disease Hypertension Father Hypertension Diabetes mellitus Social History Social History Social History: The patient is . She has 3 sons and 2 daughters. She lives with 1 son. She was independent prior to this fracture. She used to smoke and quit over 30 years ago. Smoking status: Former smoker Tobacco type: cigarettes Second hand tobacco smoke exposure: No Alcohol intake: unknown Substance use: unknown Substance use type: does not use Gender identity (if verbalized by the patient): Female Spiritual care concerns: No Agree to blood products: Yes Meds Home Medications and Allergies Home Medications Medication Instructions Recorded Confirmed Type Ventolin HFA 2 puff INHALATION Q6H PRN 02/12/20 02/26/20 History acetaminophen 650 mg PO Q4H PRN 02/12/20 02/26/20 History apixaban [Eliquis] 5 mg PO BID 02/12/20 02/26/20 History cholecalciferol (vitamin D3) 25 mcg PO DAILY 02/12/20 02/26/20 History ferrous sulfate 325 mg PO DAILY 02/12/20 02/26/20 History furosemide 10 mg
[2020-02-26 14:50] LABS: pH ABG 7.275 (7.350-7.450)
[2020-02-26 14:51] LABS: Device NON-INVASIVE VENT; Modified Allen's Test Pass; Non-Invasive Expiratory Pressure 8 CMH2O; Non-Invasive Inspiratory Pressure 22 CMH2O; Non-Invasive Vent Rate 16 /MIN; PCO2 ABG 75.5 mmHg (35.0-45.0); Site Drawn RIGHT RADIAL
--- NOTE | 2020-02-26 15:04 | ECG_ITS ---
Measurements Intervals [place] Rate: 100 P: ID: 0 QRS: -14 QRSD: 106 T: 83 QT: 356 QTc: 460 Interpretive Statements ATRIAL FIBRILLATION WITH RAPID VENTRICULAR RESPONSE EARLY PRECORDIAL R/S TRANSITION NONSPECIFIC ST & T-WAVE ABNORMALITY- ANT/LAT LEADS ABNORMAL ECG Electronically Signed On 02-26-2020 19:13:34 CDT by Mike Carrasquillo D.O.
[2020-02-26] MEDS: IPRATROPIUM BR 0.02% INH SOLN 0.5 MG/2.5 ML VIAL (15:07)
[2020-02-26] MEDS: ALBUTEROL SULFATE NEB 2.5 MG/0.5 ML INH 5 MG (15:07)
[2020-02-26 15:36] LABS: Basophils Absolute Auto 0.2 K/mm3 (0.0-0.1); Basophils Percent Auto 0.5 % (0.2-1.2); Eosinophils Percent Auto 0.1 % (0-4.4); Hematocrit 30.2 % (37.0-47.0); Hemoglobin 8.8 g/dL (12.0-15.0); Immature Granulocyte Absolute 1.25 K/mm3 (0.00-0.031); Immature Granulocyte Percent A 3.9 % (0-0.5); Lymphocytes Absolute Auto 0.98 K/mm3 (0.9-3.2); Lymphocytes Percent Auto 3.1 % (18.3-44.2); Mean Corpuscular HGB Conc 29.1 g/dl (32-36); Mean Corpuscular Hemoglobin 27.8 pg (26-34); Mean Corpuscular Volume 95.3 fl (80-100); Mean Platelet Volume 9.8 fl (7.4-10.4); Monocytes Absolute Auto 2.3 K/mm3 (0.1-0.6); Monocytes Percent Auto 7.2 % (2.6-8.5); Neutrophils Percent Auto 85.2 % (45.5-73.1); Platelet Count Result 326 k/mm3 (150-375); Red Blood Count 3.17 M/mm3 (4.2-5.4); Red Cell Distribution Width 16.6 % (11.5-14.5); White Blood Count 31.7 K/mm3 (4.5-10.0)
[2020-02-26 15:49] LABS: Potassium 4.1 mmol/L (3.4-5.0)
[2020-02-26 15:50] LABS: Lactic Acid Reflex 0.8 mmol/L (0.7-2.1)
[2020-02-26 15:56] LABS: Alanine Aminotransferase 21 U/L (4-35); Albumin Level 3.2 g/dL (3.5-5.1); Alkaline Phosphatase 198 U/L (38-126); Aspartate Amino Transferase 40 U/L (14-36); Bilirubin,Total 0.6 mg/dL (0.2-1.3); Blood Urea Nitrogen 16 mg/dL (7-17); Calcium 8.9 mg/dL (8.4-10.2); Carbon Dioxide 36 mmol/L (22-30); Chloride 88 mmol/L (98-107); Estimated Glomerular Filt Rate > 60; Glucose 198 mg/dL (65-105); Sodium 128 mmol/L (137-145)
[2020-02-26 16:00] LABS: Troponin I < 0.012 ng/mL (0.000-0.034)
[2020-02-26 16:31] LABS: Base Excess ABG 6.1 mEq/l (+/-2.0); Fractional Inspired Oxygen 50 %; HCO3 ABG 34.4 mEq/l (22.0-26.0); Oxygen Content ABG 13.4 %vol (16.0-22.0); Oxygen Saturation ABG 94.7 % (95.0-100.0); Oxyhemoglobin 93.9 % THb (90.0-100.0); PO2 FiO2 Ratio Arterial Blood 1.68 %; Total Hemoglobin 10.1 g/dL (12.0-18.0)
[2020-02-26 16:33] LABS: Device NON-INVASIVE VENT; Modified Allen's Test Pass; PCO2 ABG 73.3 mmHg (35.0-45.0); Site Drawn LEFT RADIAL; pH ABG 7.289 (7.350-7.450)
[2020-02-26 16:34] LABS: Non-Invasive Expiratory Pressure 8 CMH2O; Non-Invasive Inspiratory Pressure 22 CMH2O; Non-Invasive Vent Rate 16 /MIN
--- NOTE | 2020-02-26 17:00 | PC.NURSE ---
This patient, Trina Larkin, was transferred to [ICU-4] on 02/26/20 at 1700. Personal belongings sent with patient. Belongings list checked and signed with receiving [ ]. Report given to [TOYA BERKOWITZ]. Appropriate documentation sent with patient.
--- NOTE | 2020-02-26 17:03 | PC.NURSE ---
This patient, Trina Larkin, was [facility] on 02/26/20 at 1703. Personal belongings list checked and signed. Patient/family oriented to unit policies and routines
--- NOTE | 2020-02-26 17:45 | WPDPROCEDUR ---
Procedures Intubation: Intubation Date: 02/26/20 Intubation Time: 17:45 Consent: Patient gave verbal consent. A pre-procedural Time-Out was completed immediately before starting the procedure and confirmed: Patient Identification, Site, Procedure, Patient Position and the Availability of Requisite Equipment: Yes Sedative: etomidate Mg given: 30 Laryngoscope: fiber optic video scope ET tube size: 7.5 Tube secured depth (cm): 22 Tube secured location: lips Tube placement confirmation: visualized tube passing through cords, equal breath sounds bilaterally, no breath sounds over epigastrium and confirmation by capnometry Patient tolerated procedure: well Intubation complications: none Additional comments: Case discussed with Drs. Miner and Naheed, with mutual decision to intubate the patient as she was not improving with BiPAP. Patient did give verbal consent. Ventilator settings and sedation orders were obtained from Dr. Farfan, who will be managing the patient in the ICU. Dr. Татьяна Truong, attending ED physician, was aware of the procedure and was available if needed.
--- NOTE | 2020-02-26 18:00 | WPDPROCEDUR ---
Procedures Central Line Placement: Left Femoral: Discussed w/ patient and/or surrogate, the non-emergent placement of a central venous catheter, including its clinical necessity/indication & associated potential risks & complications.: Yes The patient and/or surrogate understand(s) and acknowledge(s) the need to proceed with central venous catheter insertion as an important element of the patient's clinical management.: Yes Consent: Patient gave verbal consent. Central Line Date: 02/26/20 Central Line Time: 18:00 Pre-procedural Time-Out was completed immediately before starting the procedure and confirmed: Patient Identification, Site, Procedure, Patient Position and the Availability of Requisite Equipment.: Yes Patient Position: supine Patient placed on monitor/pulse ox: Yes Provider Prep: mask, sterile gown, sterile gloves, Max. sterile barrier precautions, cap and hand hygiene Central line prep: Povidone-Iodine 1% Local anesthesia used: lidocaine 1% Amount of anesthesia used (ml): 5 Ultrasound used for placement: Yes Central line lumen inserted: triple Kiswahili: 7 Length (cm): 16 Post procedure: sutured in place, good blood return, all ports aspirated, flushed, capped, tegaderm, hemostatic disc and aseptic technique maintained throughout procedure Post procedure x-ray: other (N/A with femoral placement. ) Patient tolerated procedure: well Complications: none Additional comments: Dr. Татьяна Truong, attending, ED physician, was notified of the procedure prior to insertion and was available if needed.
[2020-02-26] MEDS: PROPOFOL IV EMULSION 100 ML 11.4 MG IV CONT (18:57)
[2020-02-26] MEDS: RAPID SEQUENCE INTUBATION KIT 1 EACH (18:58)
[2020-02-26] MEDS: TOLNAFTATE 1% POWDER 45 GM BTL 1 APPLIC TOPICAL (20:32)
[2020-02-26 20:47] LABS: Glucose Point of Care 160 (65-105)
[2020-02-26 23:14] LABS: Alveolar/Arterial O2 Gradient 258.9 mmHg; Base Excess ABG 4.1 mEq/l (+/-2.0); Carboxyhemoglobin 0.3 % THb (0-2.0); Fractional Inspired Oxygen 60 %; HCO3 ABG 27.6 mEq/l (22.0-26.0); Methemoglobin ABG 0.4 %THb (0-1.5); Oxygen Saturation ABG 98.8 % (95.0-100.0); Oxyhemoglobin 97.4 % THb (90.0-100.0); PCO2 ABG 36.9 mmHg (35.0-45.0); PO2 ABG 128.3 mmHg (80.0-100.0); PO2 FiO2 Ratio Arterial Blood 2.14 %; Reduced Hemoglobin 1.9 %THb (0-5.0); Total Hemoglobin 8.6 g/dL (12.0-18.0); pH ABG 7.492 (7.350-7.450)
[2020-02-26 23:19] LABS: Device VENTILATOR; Modified Allen's Test Unable to perform; Site Drawn RIGHT RADIAL
[2020-02-26 23:20] LABS: Arterial Blood Gas PEEP 8 cmH2O; Arterial Blood Gas Tidal Volume 400 ml; Arterial Blood Gas Vent Mode CMV; Arterial Blood Gas Ventilator rate 18 /MIN
[2020-02-26] MEDS: VANCOMYCIN ORAL 125 MG/2.5 ML SYRUP FEED TUBE (23:32)
[2020-02-26] MEDS: FUROSEMIDE INJ 40 MG/4 ML VIAL 20 MG IV PUSH (23:37)
[2020-02-26] MEDS: PROPOFOL IV EMULSION 100 ML 15.2 MG IV CONT (23:52)
[2020-02-26 23:53] LABS: Estimated CRCL calculation 86 ml/min; Estimated Glomerular Filt Rate > 60; INR 2.1; Prothrombin Time 22.8 Seconds (11.1-14.7)
[2020-02-26 23:54] LABS: Partial Thromboplastin Time 54.8 SECONDS (22.3-36.8)
[2020-02-26] MEDS: HEPARIN SOD/D5W 100 UNITS/ML 25,000 UNITS/250 ML BAG 15 UNITS IV CONT (23:56)
[2020-02-27] VITALS (20 sets, daily range): BP systolic 91–115; BP diastolic 50–84; PULSE 72–100; RESP 16–20; TEMP 36.6–37.3; O2SAT 97–100; BMI 51.0
[2020-02-27 00:18] LABS: Add Urine Microscopic? YES; Appearance Urine Cloudy (Clear); Bacteria Urine Trace /hpf; Bilirubin Urine Negative (Negative); Blood Urine 2+ (Negative); Color Urine Yellow (Yellow); Glucose Urine UA Negative (Negative); Hyaline Casts Urine 15-19 /lpf; Ketones Urine Negative (Negative); Leukocyte Esterase Ur Negative LEU/UL (NEGATIVE); Mucus Urine Few /lpf; Nitrate Urine Negative (Negative); Protein Urine 2+ mg/dL (Negative); RBC Urine >75 /hpf (0-2); Specific Grav Ur 1.021 (1.001-1.035); Squamous Epithelial Cell Urine Occasional /hpf (Few); WBC Urine 31-50 /hpf (0-3)
[2020-02-27 05:07] LABS: Glucose Point of Care 156 (65-105)
[2020-02-27 05:09] LABS: Alveolar/Arterial O2 Gradient 170.4 mmHg; Base Excess ABG 10.3 mEq/l (+/-2.0); Fractional Inspired Oxygen 40 %; HCO3 ABG 33.6 mEq/l (22.0-26.0); Oxygen Content ABG 13.5 %vol (16.0-22.0); Oxygen Saturation ABG 95.6 % (95.0-100.0); PCO2 ABG 39.8 mmHg (35.0-45.0); PO2 FiO2 Ratio Arterial Blood 1.73 %; Total Hemoglobin 10.2 g/dL (12.0-18.0)
[2020-02-27 05:11] LABS: Device VENTILATOR; Modified Allen's Test Pass; Site Drawn RIGHT RADIAL; pH ABG 7.544 (7.350-7.450)
[2020-02-27 05:12] LABS: Arterial Blood Gas PEEP 8 cmH2O; Arterial Blood Gas Tidal Volume 400 ml; Arterial Blood Gas Vent Mode CMV; Arterial Blood Gas Ventilator rate 18 /MIN
[2020-02-27] MEDS: PROPOFOL IV EMULSION 100 ML 15.2 MG IV CONT ×3 (06:11→20:34)
[2020-02-27] MEDS: VANCOMYCIN ORAL 125 MG/2.5 ML SYRUP FEED TUBE ×3 (06:12→17:29)
[2020-02-27 06:27] LABS: Hematocrit 27.3 % (37.0-47.0); Hemoglobin 8.1 g/dL (12.0-15.0); Mean Corpuscular HGB Conc 29.7 g/dl (32-36); Mean Corpuscular Hemoglobin 27.6 pg (26-34); Mean Corpuscular Volume 93.2 fl (80-100); Mean Platelet Volume 10.2 fl (7.4-10.4); Platelet Count Result 276 k/mm3 (150-375); Red Blood Count 2.93 M/mm3 (4.2-5.4); Red Cell Distribution Width 16.5 % (11.5-14.5); White Blood Count 21.5 K/mm3 (4.5-10.0)
[2020-02-27 06:40] LABS: Alanine Aminotransferase 18 U/L (4-35); Albumin Level 2.9 g/dL (3.5-5.1); Alkaline Phosphatase 177 U/L (38-126); Aspartate Amino Transferase 29 U/L (14-36); Bilirubin,Total 0.6 mg/dL (0.2-1.3); Blood Urea Nitrogen 21 mg/dL (7-17); Calcium 8.3 mg/dL (8.4-10.2); Carbon Dioxide 36 mmol/L (22-30); Chloride 86 mmol/L (98-107); Estimated CRCL calculation 76 ml/min; Estimated Glomerular Filt Rate > 60; Glucose 135 mg/dL (65-105); Lactate Dehydrogenase 484 U/L (313-618); Magnesium 1.8 mg/dL (1.6-2.3); Potassium 3.4 mmol/L (3.4-5.0); Sodium 130 mmol/L (137-145)
[2020-02-27 06:43] LABS: Glucose Point of Care 123 (65-105)
[2020-02-27 06:43] LABS: Partial Thromboplastin Time 166.4 SECONDS (22.3-36.8)
[2020-02-27 07:13] LABS: Iron 50 ug/dL (37-170)
[2020-02-27 07:16] LABS: CRP 33.6 mg/dL (<1.0)
[2020-02-27 07:22] LABS: Percent Iron Saturation 19 % (20-50)
[2020-02-27 07:43] LABS: Folic Acid 5.7 ng/mL (2.76->20)
[2020-02-27] MEDS: TOLNAFTATE 1% POWDER 45 GM BTL 1 APPLIC TOPICAL ×2 (08:52→20:35)
[2020-02-27] MEDS: PANTOPRAZOLE SODIUM IV 40 MG VIAL IV PUSH (08:52)
--- NOTE | 2020-02-27 09:51 | WPDCNINT ---
Assessment and Plan Assessment and plan (1) Acute respiratory failure: Qualifiers: Respiratory failure complication: hypercapnia Qualified Code(s): J96.02 - Acute respiratory failure with hypercapnia Code(s): J96.00 - Acute respiratory failure, unspecified whether with hypoxia or hypercapnia Status: Acute Assessment and Plan: patient with acute hypercapnic respiratory failure likely related to bilateral airspace disease, bacteremia, morbid obesity, dilated bowels, suspect bacterial versus viral pneumonia INFUENZA A & B Negative 02/26/2020 - patient was intubated on 02/26/2020 - currently on CMV mode of ventilation, 35% and peep of 8. chest x-ray showed low lung volumes, will increase peep to 10 - with concerns for COVID-19, TERESA-COV-2 pcr swab was sent for testing - patient started on vancomycin, azithromycin, ceftriaxone - on propofol for sedation (2) Sepsis: Qualifiers: Sepsis type: sepsis due to unspecified organism Sepsis acute organ dysfunction status: with acute organ dysfunction Severe sepsis acute organ dysfunction type: acute respiratory failure Acute respiratory failure type: with hypercapnia Severe sepsis shock status: without septic shock Qualified Code(s): A41.9 - Sepsis, unspecified organism; R65.20 - Severe sepsis without septic shock; J96.02 - Acute respiratory failure with hypercapnia Code(s): A41.9 - Sepsis, unspecified organism Status: Acute Assessment and Plan: sepsis related to gram-positive cocci bacteremia on blood cultures 02/26/2020 - continue antibiotics as above - urine and sputum cultures pending - patient maintaining her blood pressures - monitor urine output (3) Gram-positive cocci bacteremia: Code(s): R78.81 - Bacteremia Status: Acute Assessment and Plan: 02/26/2020 blood cultures growing gram-positive cocci in clusters 2/2 bottles, continue antibiotics as above - may require repeat echocardiogram to rule out endocarditis if Staph aureus is resulted (4) Ileus: Code(s): K56.7 - Ileus, unspecified Status: Acute Assessment and Plan: patient does developed ileus with dilated bowel loops, could be related to his severe sepsis, narcotics - NG tube in place, will start low-dose Reglan - repeat abdominal x-ray in a.m. (5) Atrial fibrillation: Qualifiers: Atrial fibrillation type: unspecified chronic Qualified Code(s): I48.20 - Chronic atrial fibrillation, unspecified Code(s): I48.91 - Unspecified atrial fibrillation Status: Chronic Assessment and Plan: patient with history of AFib, on heparin infusion at this time - rate controlled - will continue to monitor for now (6) Cellulitis: Qualifiers: Site of cellulitis: extremity Site of cellulitis of extremity: lower extremity Laterality: right Qualified Code(s): L03.115 - Cellulitis of right lower limb Code(s): L03.90 - Cellulitis, unspecified Status: Acute Assessment and Plan: Patient had a right antecubital fossa infection with purulent draianage on 02/12/20. wound culture showing MERCEDES. completed a course of Bactrim on 02/24/20. Condition clinically has resolved. Continue Eucerin and dressing changes to the right lower extremtiy. 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
[2020-02-27] MEDS: METOCLOPRAMIDE HCL INJ 10 MG/2 ML VIAL 5 MG IV PUSH ×2 (11:28→17:29)
[2020-02-27 11:58] LABS: Glucose Point of Care 133 (65-105)
[2020-02-27] MEDS: SODIUM CHLORIDE 0.9% IV 1,000 ML 75 ML IV CONT (12:51)
[2020-02-27 14:06] LABS: Partial Thromboplastin Time 71.9 SECONDS (22.3-36.8)
--- NOTE | 2020-02-27 14:34 | PM.IMPN ---
Progress Note: A&P Assessment and Plan (1) Acute respiratory failure: Qualifiers: Respiratory failure complication: hypercapnia Qualified Code(s): J96.02 - Acute respiratory failure with hypercapnia Code(s): J96.00 - Acute respiratory failure, unspecified whether with hypoxia or hypercapnia Status: Acute Assessment and Plan: Of bilateral airspace disease, bacteremia, morbid obesity, dilated bowels and bacterial versus viral pneumonia. Blood cultures X2 now with gram-positive cocci in clusters. IV antibiotics. Continue Combivent p.r.n.. (2) Sepsis: Qualifiers: Acute respiratory failure type: with hypercapnia Sepsis acute organ dysfunction status: with acute organ dysfunction Sepsis type: sepsis due to unspecified organism Severe sepsis acute organ dysfunction type: acute respiratory failure Severe sepsis shock status: without septic shock Qualified Code(s): A41.9 - Sepsis, unspecified organism; R65.20 - Severe sepsis without septic shock; J96.02 - Acute respiratory failure with hypercapnia Code(s): A41.9 - Sepsis, unspecified organism Status: Acute Assessment and Plan: Criteria met on admission. Blood cultures as noted above. COVID testing in process. Urine culture pending. Will continue vancomycin, azithromycin and ceftriaxone. Remains on IV fluids. WBC better at 21.5 today. (3) Ileus: Code(s): K56.7 - Ileus, unspecified Status: Acute Assessment and Plan: Noted to have distended bowel on imaging from 02/25/2020. Obstructive series obtained and consistent with ileus. NG tube in place. Low-dose Reglan started. Will continue to monitor. (4) Anemia: Qualifiers: Anemia type: unspecified type Qualified Code(s): D64.9 - Anemia, unspecified Code(s): D64.9 - Anemia, unspecified Status: Acute Assessment and Plan: Hemoglobin stable at 8.1 today. No obvious sign of blood loss. On heparin and will monitor. (5) Congestive heart failure: Qualifiers: Heart failure chronicity: acute on chronic Heart failure type: diastolic Qualified Code(s): I50.33 - Acute on chronic diastolic (congestive) heart failure Code(s): I50.9 - Heart failure, unspecified Status: Chronic Assessment and Plan: CT of the chest on 02/19/2020 reviewed showing atelecatasis and small right pleural effusion. Echocardiogram on 02/19/2020 with EF 50-55%. Will continue IV Lasix. Will monitor. (6) Atrial fibrillation: Qualifiers: Atrial fibrillation type: unspecified chronic Qualified Code(s): I48.20 - Chronic atrial fibrillation, unspecified Code(s): I48.91 - Unspecified atrial fibrillation Status: Chronic Assessment and Plan: Telemetry reviewed on 02/27/2020 with atrial fibrillation with heart rate controlled. Not on medication at this time but will monitor. Initiate medication if needed. On heparin drip as noted. (7) Cellulitis: Qualifiers: Laterality: right Site of cellulitis: extremity Site of cellulitis of extremity: lower extremity Qualified Code(s): L03.115 - Cellulitis of right lower limb Code(s): L03.90 - Cellulitis, unspecified Status: Acute Assessment and Plan: Patient had a right antecubital fossa infection with purulent draianage on 02/12/2020. Swab culture showing MERCEDES. MRSA nasal swab negative. She did complete a course of oral Bactrim. Now on IV antibiotics as noted above for respiratory issues. Continue local wound care. (8) Hypertension: Qualifiers: Hypertension type: essential hypertension Qualified Code(s): I10 - Essential (primary) hypertension Code(s): I10 - Essential (primary) hypertension Status: Chronic Assessment and Plan: Blood pressure reviewed on 02/27/2020 and low normal but stable. Will continue to hold metoprolol and diltiazem. Continue to monitor. IV hydralazine is availa
[2020-02-27 17:39] LABS: Glucose Point of Care 110 (65-105)
[2020-02-27 21:06] LABS: Partial Thromboplastin Time 57.6 SECONDS (22.3-36.8)
[2020-02-27] MEDS: HEPARIN SODIUM 5,000 UNITS/ML VIAL 3000 UNITS IV PUSH (22:16)
[2020-02-28] VITALS (23 sets, daily range): BP systolic 96–131; BP diastolic 59–81; PULSE 70–101; RESP 16–28; TEMP 36.8–37.5; O2SAT 98–100
[2020-02-28] MEDS: METOCLOPRAMIDE HCL INJ 10 MG/2 ML VIAL 5 MG IV PUSH ×3 (00:55→12:40)
[2020-02-28] MEDS: VANCOMYCIN ORAL 125 MG/2.5 ML SYRUP FEED TUBE ×4 (00:55→17:56)
[2020-02-28 01:03] LABS: Glucose Point of Care 118 (65-105)
[2020-02-28] MEDS: SODIUM CHLORIDE 0.9% IV 1,000 ML 75 ML IV CONT (02:31)
[2020-02-28] MEDS: PROPOFOL IV EMULSION 100 ML 15.2 MG IV CONT ×3 (02:32→14:30)
[2020-02-28 04:58] LABS: Alveolar/Arterial O2 Gradient 162.2 mmHg; Base Excess ABG 8.6 mEq/l (+/-2.0); Carboxyhemoglobin 0.3 % THb (0-2.0); Fractional Inspired Oxygen 40 %; HCO3 ABG 32.2 mEq/l (22.0-26.0); Methemoglobin ABG 0.4 %THb (0-1.5); Oxygen Content ABG 11.8 %vol (16.0-22.0); Oxygen Saturation ABG 96.5 % (95.0-100.0); Oxyhemoglobin 94.4 % THb (90.0-100.0); PO2 FiO2 Ratio Arterial Blood 1.92 %; Reduced Hemoglobin 4.9 %THb (0-5.0); Total Hemoglobin 8.8 g/dL (12.0-18.0)
[2020-02-28 05:01] LABS: Device VENTILATOR; Site Drawn RIGHT BRACHIAL; pH ABG 7.523 (7.350-7.450)
[2020-02-28 05:02] LABS: Arterial Blood Gas PEEP 10 cmH2O; Arterial Blood Gas Tidal Volume 400 ml; Arterial Blood Gas Vent Mode CMV; Arterial Blood Gas Ventilator rate 16 /MIN
[2020-02-28 06:25] LABS: Glucose Point of Care 112 (65-105)
[2020-02-28 06:27] LABS: Basophils Percent Auto 0.1 % (0.2-1.2); Eosinophils Absolute Auto 0.1 K/mm3 (0-0.3); Eosinophils Percent Auto 0.4 % (0-4.4); Hemoglobin 7.9 g/dL (12.0-15.0); Immature Granulocyte Absolute 0.71 K/mm3 (0.00-0.031); Immature Granulocyte Percent A 5.2 % (0-0.5); Lymphocytes Absolute Auto 1.47 K/mm3 (0.9-3.2); Lymphocytes Percent Auto 10.7 % (18.3-44.2); Mean Corpuscular HGB Conc 30.4 g/dl (32-36); Mean Corpuscular Hemoglobin 27.9 pg (26-34); Mean Corpuscular Volume 91.9 fl (80-100); Mean Platelet Volume 10.3 fl (7.4-10.4); Monocytes Absolute Auto 1.1 K/mm3 (0.1-0.6); Monocytes Percent Auto 8.3 % (2.6-8.5); Neutrophils Absolute Auto 10.4 K/mm3 (1.3-6.7); Neutrophils Percent Auto 75.3 % (45.5-73.1); Platelet Count Result 280 k/mm3 (150-375); Red Blood Count 2.83 M/mm3 (4.2-5.4); Red Cell Distribution Width 16.6 % (11.5-14.5); White Blood Count 13.8 K/mm3 (4.5-10.0)
[2020-02-28 06:31] LABS: INR 1.5; Prothrombin Time 17.4 Seconds (11.1-14.7)
[2020-02-28 06:33] LABS: Partial Thromboplastin Time 122.7 SECONDS (22.3-36.8); Potassium 3.5 mmol/L (3.4-5.0)
[2020-02-28 06:49] LABS: Alanine Aminotransferase 14 U/L (4-35); Albumin Level 2.7 g/dL (3.5-5.1); Alkaline Phosphatase 144 U/L (38-126); Aspartate Amino Transferase 22 U/L (14-36); Bilirubin,Total 0.5 mg/dL (0.2-1.3); Blood Urea Nitrogen 18 mg/dL (7-17); CRP 23.2 mg/dL (<1.0); Calcium 8.1 mg/dL (8.4-10.2); Carbon Dioxide 35 mmol/L (22-30); Chloride 92 mmol/L (98-107); Estimated CRCL calculation 61 ml/min; Estimated Glomerular Filt Rate 55; Glucose 114 mg/dL (65-105); Phosphorus 2.7 mg/dL (2.5-4.5); Sodium 132 mmol/L (137-145)
[2020-02-28] MEDS: PANTOPRAZOLE SODIUM IV 40 MG VIAL IV PUSH (07:56)
[2020-02-28] MEDS: TOLNAFTATE 1% POWDER 45 GM BTL 1 APPLIC TOPICAL ×2 (07:56→20:45)
--- NOTE | 2020-02-28 11:26 | PCFNICU ---
ICU Rounding Note: Pt current nutrition is NPO. Nutrition recommendation:NPO Last recorded weight is 126.6 kg. Bowel Motility:+BM reported today. Labs Reviewed:BUN 18,GFR 55, Glu 114, Na 132 Meds Noted:Reglan, Propofol 15.2 ml, Lasix Additional Notes: Patient has abdominal distention, GI consulted. No Tube feedings at this time. Following daily in ICU rounds. Assessing/reassessing [g DIETFREQ].
--- NOTE | 2020-02-28 12:43 | WPDGICN ---
Assessment and Plan Assessment and plan (1) Ileus: Code(s): K56.7 - Ileus, unspecified Status: Acute Assessment and Plan: Ileus evident by x-rays. She has decreased bowel sounds which seemed to correspond with this. Etiology unclear. Likely related to her comorbid diseases. No evidence of obstruction by her current exam is would agree with the brief trial of Reglan intravenously. Should diarrhea developed cultures would be advised. Continue to monitor obstructive series. (2) Morbid obesity: Code(s): E66.01 - Morbid (severe) obesity due to excess calories Status: Acute (3) Anemia: Qualifiers: Anemia type: unspecified type Qualified Code(s): D64.9 - Anemia, unspecified Code(s): D64.9 - Anemia, unspecified Status: Acute Assessment and Plan: Anemia has been noted since hospitalization. No obvious signs for GI blood loss. Stool Hemoccult pending. Patient is on Eliquis because of a history of a DVT. Will continue to monitor closely for any signs of GI blood loss. (4) Acute respiratory failure: Qualifiers: Respiratory failure complication: hypercapnia Qualified Code(s): J96.02 - Acute respiratory failure with hypercapnia Code(s): J96.00 - Acute respiratory failure, unspecified whether with hypoxia or hypercapnia Status: Acute Assessment and Plan: Patient now intubated in the intensive care unit workup for underlying pneumonia in progress. (5) Left humeral fracture: Qualifiers: Encounter type: sequela Fracture type: closed Fracture morphology: unspecified fracture morphology Code(s): S42.302A - Unspecified fracture of shaft of humerus, left arm, initial encounter for closed fracture Status: Acute (6) Congestive heart failure: Qualifiers: Heart failure type: diastolic Heart failure chronicity: acute on chronic Qualified Code(s): I50.33 - Acute on chronic diastolic (congestive) heart failure Code(s): I50.9 - Heart failure, unspecified Status: Chronic (7) Atrial fibrillation: Qualifiers: Atrial fibrillation type: unspecified chronic Qualified Code(s): I48.20 - Chronic atrial fibrillation, unspecified Code(s): I48.91 - Unspecified atrial fibrillation Status: Chronic GI Consult Note Consult date/time: 02/28/20 12:43 HPI: Trina Larkin is a 69 year old female seen in evaluation at the 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 Patient has abdominal distention decreased bowel sounds an x-ray suggestive of abdominal ileus. She originally admitted to [facility] after a fall and a left humerus fracture. She was treated at [facility] and sent to our hospital for rehabilitation. She currently has a T LSO brace. Her past history is significant for congestive heart failure while in rehab she began to be somewhat short of breath ultimately because of respiratory failure was transferred to the hospital and ultimately the intensive care unit. She was identified as having pneumonia with significant respiratory failure. She is now intubated. X-rays show abdominal: Distention since at least 02/25/2020. Patient is currently intubated unable to add any additional history Review of Systems Review of Systems: ROS unobtainable: Yes unobtainable due to endotracheal tube PMFSH Past Medical History Medical History Atrial fibrillation Congestive heart failure DVT (deep venous thrombosis) Hypertension Left humeral fracture Morbid obesity Venous stasis dermatitis Surgical History Surgical History H/O hernia repair Ventral S/P appendectomy Family History Family History Sibling Esophagus cancer Liver disease Heart disease Father Heart disease Mother Heart disease Hypertension Father Hype
--- NOTE | 2020-02-28 12:57 | WPDINTPN ---
Progress Note: A&P Assessment and Plan (1) Acute respiratory failure: Qualifiers: Respiratory failure complication: hypercapnia Qualified Code(s): J96.02 - Acute respiratory failure with hypercapnia Code(s): J96.00 - Acute respiratory failure, unspecified whether with hypoxia or hypercapnia Status: Acute Assessment and Plan: patient with acute hypercapnic respiratory failure likely related to bilateral airspace disease, bacteremia, morbid obesity, dilated bowels, suspect bacterial versus viral pneumonia INFUENZA A & B Negative 02/26/2020 - patient was intubated on 02/26/2020 - currently on CMV mode of ventilation, 35% and peep of 10, tidal volumes was decreased to 350 mL after the reviewing chest x-ray and ABGs. - with concerns for COVID-19, TERESA-COV-2 pcr swab was sent for testing - continue vancomycin, azithromycin, ceftriaxone - on propofol for sedation (2) Sepsis: Qualifiers: Sepsis type: sepsis due to unspecified organism Sepsis acute organ dysfunction status: with acute organ dysfunction Severe sepsis acute organ dysfunction type: acute respiratory failure Acute respiratory failure type: with hypercapnia Severe sepsis shock status: without septic shock Qualified Code(s): A41.9 - Sepsis, unspecified organism; R65.20 - Severe sepsis without septic shock; J96.02 - Acute respiratory failure with hypercapnia Code(s): A41.9 - Sepsis, unspecified organism Status: Acute Assessment and Plan: sepsis related to Staph aureus bacteremia on blood cultures 02/26/2020 - continue antibiotics as above - sputum cultures sales representatives of lower respiratory tract - urine culture with no growth - patient maintaining her blood pressures - monitor urine output (3) Gram-positive cocci bacteremia: Code(s): R78.81 - Bacteremia Status: Acute Assessment and Plan: 02/26/2020 blood cultures growing Staph aureus 2/2 bottles, sensitivities pending, continue antibiotics as above - may require repeat echocardiogram to rule out endocarditis if Staph aureus is resulted, will wait till her SARS-COV-2 PCR comes back (4) Ileus: Code(s): K56.7 - Ileus, unspecified Status: Acute Assessment and Plan: patient does developed ileus with dilated bowel loops, could be related to his severe sepsis, narcotics - NG tube in place, will increase dose of reglan - appreciate GI evaluation recommendation - continue to follow KUB (5) Atrial fibrillation: Qualifiers: Atrial fibrillation type: unspecified chronic Qualified Code(s): I48.20 - Chronic atrial fibrillation, unspecified Code(s): I48.91 - Unspecified atrial fibrillation Status: Chronic Assessment and Plan: patient with history of AFib, on heparin infusion at this time - rate controlled - will continue to monitor for now (6) Cellulitis: Qualifiers: Site of cellulitis: extremity Site of cellulitis of extremity: lower extremity Laterality: right Qualified Code(s): L03.115 - Cellulitis of right lower limb Code(s): L03.90 - Cellulitis, unspecified Status: Acute Assessment and Plan: Patient had a right antecubital fossa infection with purulent draianage on 02/12/20. wound culture showing MERCEDES. completed a course of Bactrim on 02/24/20. Condition clinically has resolved. Continue Eucerin and dressing changes to the right lower extremtiy. (7) DVT (deep venous thrombosis): Qualifiers: DVT location: lower extremity Affected thrombotic vein of extremity: unspecified vein of extremity Chronicity: chronic Laterality: unspecified laterality Qualified Code(s): I82.509 - Chronic embolism and thrombosis of unspecified deep veins of unspecified lower extremity Code(s): I82.409 - Acute embolism and thrombosis of unspecified deep veins of unspecified lower extremity Status: Chronic Assessment and Plan: patient with rec
[2020-02-28] MEDS: HEPARIN SOD/D5W 100 UNITS/ML 25,000 UNITS/250 ML BAG 13 UNITS IV CONT (13:02)
[2020-02-28 13:50] LABS: Partial Thromboplastin Time 82.7 SECONDS (22.3-36.8)
--- NOTE | 2020-02-28 14:30 | PM.IMPN ---
Progress Note: A&P Assessment and Plan (1) Acute respiratory failure: Qualifiers: Respiratory failure complication: hypercapnia Qualified Code(s): J96.02 - Acute respiratory failure with hypercapnia Code(s): J96.00 - Acute respiratory failure, unspecified whether with hypoxia or hypercapnia Status: Acute Assessment and Plan: Probably result of bilateral airspace disease, bacteremia, morbid obesity, dilated bowels and bacterial versus viral pneumonia. Remains on ventilator with management per corporate travel expert. Discussed with corporate travel expert today. Hopeful extubation soon. Cultures as noted below. Continue IV antibiotics as noted below. Continue Combivent p.r.n.. (2) Sepsis: Qualifiers: Acute respiratory failure type: with hypercapnia Sepsis acute organ dysfunction status: with acute organ dysfunction Sepsis type: sepsis due to unspecified organism Severe sepsis acute organ dysfunction type: acute respiratory failure Severe sepsis shock status: without septic shock Qualified Code(s): A41.9 - Sepsis, unspecified organism; R65.20 - Severe sepsis without septic shock; J96.02 - Acute respiratory failure with hypercapnia Code(s): A41.9 - Sepsis, unspecified organism Status: Acute Assessment and Plan: Criteria met on admission. Blood cultures x 2 now growing Staphylococcus aureus with sensitivities pending. Urine culture negative. COVID testing still pending. Will continue vancomycin, azithromycin and ceftriaxone. WBC improved to 13.8 today. Continue to follow. (3) Ileus: Code(s): K56.7 - Ileus, unspecified Status: Acute Assessment and Plan: Noted to have distended bowel on imaging from 02/25/2020. Obstructive series obtained and consistent with ileus. NG tube in place. Reglan dose increased today. Will continue to monitor. (4) Anemia: Qualifiers: Anemia type: unspecified type Qualified Code(s): D64.9 - Anemia, unspecified Code(s): D64.9 - Anemia, unspecified Status: Acute Assessment and Plan: Hemoglobin slightly lower but stable at 7.9 today. No obvious sign of blood loss. On heparin and will monitor. (5) Congestive heart failure: Qualifiers: Heart failure chronicity: acute on chronic Heart failure type: diastolic Qualified Code(s): I50.33 - Acute on chronic diastolic (congestive) heart failure Code(s): I50.9 - Heart failure, unspecified Status: Chronic Assessment and Plan: CT of the chest on 02/19/2020 reviewed showing atelecatasis and small right pleural effusion. Echocardiogram on 02/19/2020 with EF 50-55%. Will continue IV Lasix. Will monitor. (6) Atrial fibrillation: Qualifiers: Atrial fibrillation type: unspecified chronic Qualified Code(s): I48.20 - Chronic atrial fibrillation, unspecified Code(s): I48.91 - Unspecified atrial fibrillation Status: Chronic Assessment and Plan: Telemetry reviewed on 02/28/2020 with atrial fibrillation with heart rate remaining controlled. Not on medication at this time but will continue to monitor. Initiate medication if needed. On heparin drip as noted. (7) Cellulitis: Qualifiers: Laterality: right Site of cellulitis: extremity Site of cellulitis of extremity: lower extremity Qualified Code(s): L03.115 - Cellulitis of right lower limb Code(s): L03.90 - Cellulitis, unspecified Status: Acute Assessment and Plan: Patient had a right antecubital fossa infection with purulent draianage on 02/12/2020. Swab culture showing MERCEDES. MRSA nasal swab negative. She did complete a course of oral Bactrim. Now on IV antibiotics as noted above for respiratory issues. Continue local wound care. (8) Hypertension: Qualifiers: Hypertension type: essential hypertension Qualified Code(s): I10 - Essential (primary) hypertension Code(s): I10 - Essential (primary) h
[2020-02-28] MEDS: METOCLOPRAMIDE HCL INJ 10 MG/2 ML VIAL IV PUSH (17:56)
[2020-02-28 18:36] LABS: Glucose Point of Care 114 (65-105)
[2020-02-28 18:36] LABS: Glucose Point of Care 93 (65-105)
[2020-02-28 19:01] LABS: Partial Thromboplastin Time 126.8 SECONDS (22.3-36.8)
[2020-02-28] MEDS: PROPOFOL IV EMULSION 100 ML 19 MG IV CONT (20:45)
[2020-02-29] VITALS (20 sets, daily range): BP systolic 101–122; BP diastolic 59–77; PULSE 72–100; RESP 16–26; TEMP 36.3–36.9; O2SAT 98–100
--- NOTE | 2020-02-29 | ECHO_ITS ---
Patient Info Name: Trina Larkin Age: 69 years : 1950 Gender: Female Ht: 62 in Wt: 289 lbs BSA: 2.48 m2 HR: 84 bpm BP: 97 / 75 mmHg Heart Rhythm: Atrial Fibrillation Technical Quality: Good Exam Date: 02/29/2020 12:43 PM Exam Location: [facility] [place] Card Pulmonary Patient Status: Inpatient Admit Date: 02/26/2020 Staff Ordering Physician: Wade Farfan MD Job Trainer: Cong Simpson, DANIEL, RT Attending Provider: Erwin Miner MD Referring Physician: Naheed BARRIENTOS; Exam Type: CA echo limited w contrast Study Info Indications R65.20 - Severe sepsis without septic shock Limited two-dimensional transthoracic echocardiogram is performed. Summary 1. Left ventricular chamber dimension is mildly enlarged. 2. Left ventricular systolic function is normal, estimated at 60-65%. 3. There is mildly increased left ventricular wall thickness. 4. Right ventricular chamber dimension is mildly enlarged. 5. Left atrial chamber dimension is moderately enlarged. 6. Right atrial chamber dimension is mildly enlarged. 7. No obvious vegetations are seen. However, given the technical limitations of the study, a small vegetation cannot excluded. Left Ventricle Left ventricular chamber dimension is mildly enlarged. Left ventricular systolic function is normal, estimated at 60-65%. There is mildly increased left ventricular wall thickness. The left ventricular diastolic function is indeterminate. Right Ventricle Right ventricular chamber dimension is mildly enlarged. Right ventricular systolic function is normal. Left Atria Left atrial chamber dimension is moderately enlarged. Right Atria Right atrial chamber dimension is mildly enlarged. Aortic Valve The aortic valve is trileaflet. There is mild aortic valve sclerosis. Pulmonic Valve The pulmonic valve is normal. Mitral Valve The mitral valve has calcified annulus. Tricuspid Valve The tricuspid valve leaflets are normal. Other Findings No obvious vegetations are seen. However, given the technical limitations of the study, a small vegetation cannot excluded. Pericardium/Pleural The pericardium appears normal. Aorta The aortic root size at the sinus of Valsalva is normal. Report Signatures
[2020-02-29 00:17] LABS: Vancomycin Trough 21.2 ug/mL (10.0-20.0)
[2020-02-29] MEDS: METOCLOPRAMIDE HCL INJ 10 MG/2 ML VIAL IV PUSH ×4 (01:42→17:51)
[2020-02-29] MEDS: VANCOMYCIN ORAL 125 MG/2.5 ML SYRUP FEED TUBE ×2 (01:44→06:15)
[2020-02-29] MEDS: PROPOFOL IV EMULSION 100 ML 19 MG IV CONT ×2 (01:51→21:27)
[2020-02-29] MEDS: HEPARIN SODIUM 5,000 UNITS/ML VIAL 3000 UNITS IV PUSH (02:10)
[2020-02-29 02:28] LABS: Glucose Point of Care 97 (65-105)
[2020-02-29 04:46] LABS: Alveolar/Arterial O2 Gradient 145.1 mmHg; Base Excess ABG 7.6 mEq/l (+/-2.0); Carboxyhemoglobin 0.3 % THb (0-2.0); Device VENTILATOR; Fractional Inspired Oxygen 40 %; HCO3 ABG 31.7 mEq/l (22.0-26.0); Methemoglobin ABG 0.4 %THb (0-1.5); Modified Allen's Test Pass; Oxygen Content ABG 11.4 %vol (16.0-22.0); Oxygen Saturation ABG 97.4 % (95.0-100.0); Oxyhemoglobin 95.5 % THb (90.0-100.0); PCO2 ABG 43.1 mmHg (35.0-45.0); PO2 ABG 90.5 mmHg (80.0-100.0); PO2 FiO2 Ratio Arterial Blood 2.26 %; Reduced Hemoglobin 3.8 %THb (0-5.0); Site Drawn LEFT RADIAL; Total Hemoglobin 8.4 g/dL (12.0-18.0); pH ABG 7.485 (7.350-7.450)
[2020-02-29 04:47] LABS: Arterial Blood Gas PEEP 10 cmH2O; Arterial Blood Gas Tidal Volume 350 ml; Arterial Blood Gas Vent Mode CMV; Arterial Blood Gas Ventilator rate 16 /MIN
[2020-02-29 05:25] LABS: Basophils Percent Auto 0.2 % (0.2-1.2); Eosinophils Absolute Auto 0.1 K/mm3 (0-0.3); Eosinophils Percent Auto 0.9 % (0-4.4); Hematocrit 24.5 % (37.0-47.0); Hemoglobin 7.4 g/dL (12.0-15.0); Immature Granulocyte Absolute 0.46 K/mm3 (0.00-0.031); Immature Granulocyte Percent A 4.5 % (0-0.5); Lymphocytes Absolute Auto 1.32 K/mm3 (0.9-3.2); Mean Corpuscular HGB Conc 30.2 g/dl (32-36); Mean Corpuscular Hemoglobin 28.1 pg (26-34); Mean Corpuscular Volume 93.2 fl (80-100); Mean Platelet Volume 9.8 fl (7.4-10.4); Monocytes Absolute Auto 0.8 K/mm3 (0.1-0.6); Monocytes Percent Auto 8.2 % (2.6-8.5); Neutrophils Absolute Auto 7.4 K/mm3 (1.3-6.7); Neutrophils Percent Auto 73.2 % (45.5-73.1); Nucleated Red Blood Cells Perc 0.2 % (0.0-0.2); Platelet Count Result 259 k/mm3 (150-375); Red Blood Count 2.63 M/mm3 (4.2-5.4); Red Cell Distribution Width 16.6 % (11.5-14.5); White Blood Count 10.1 K/mm3 (4.5-10.0)
[2020-02-29 05:32] LABS: IFOB Positive Control Positive; Immunochemical Fecal Occult Bl Negative (N)
[2020-02-29 05:35] LABS: INR 1.3; Prothrombin Time 16.2 Seconds (11.1-14.7)
[2020-02-29 05:36] LABS: Blood Urea Nitrogen 14 mg/dL (7-17); Calcium 7.9 mg/dL (8.4-10.2); Carbon Dioxide 35 mmol/L (22-30); Chloride 96 mmol/L (98-107); Estimated CRCL calculation 61 ml/min; Estimated Glomerular Filt Rate 55; Glucose 109 mg/dL (65-105); Lactate Dehydrogenase 354 U/L (313-618); Magnesium 2.1 mg/dL (1.6-2.3); Phosphorus 3.9 mg/dL (2.5-4.5); Potassium 3.2 mmol/L (3.4-5.0); Sodium 134 mmol/L (137-145)
[2020-02-29 05:37] LABS: Lactic Acid 0.8 mmol/L (0.7-2.1); Partial Thromboplastin Time 107.7 SECONDS (22.3-36.8)
[2020-02-29 05:38] LABS: D Dimer 2.71 ug/mL (<0.48)
--- NOTE | 2020-02-29 07:40 | WPDGIPROGNO ---
Progress Note: A&P Additional Plan Patient remains on the ventilator. Nursing staff reports several bowel movements during the evening shift. No bleeding evident. On physical exam patient remains on vent. Abdomen is obese. Impression 1. Ileus. Clinically this is improving. Likely related to her comorbid diseases. Will continue Reglan for now. Consider stopping this after she is extubated. At the present time see no indication for vancomycin. Apparently this was started empirically for out of concern for C diff infection. Plan is to obtain stool for C diff. Hold Vanco until stool sample reports available. 2. Anemia. Likely multifactorial. No evidence for GI blood loss. Stool Hemoccult negative. Continue to watch hemoglobin as she is anticoagulated. 3. Pneumonia. Evident on chest x-ray. COVID status felt to be negative at this time. Patient remains intubated. 4. Congestive heart failure. 5. Atrial fibrillation. For this reason patient anticoagulated. 6. History of DVT for which patient has been maintained on Eliquis. Not an active problem. 7. Left humeral fracture. 8. Morbid obesity. Plan is to continue Reglan. As bowel function returns will decrease dose and discontinue. At present nutrition may need to be started via NG tube. Unless she is extubated soon. Subjective Date/time seen: 02/29/20 07:40 Objective Data Vital Signs Vital Signs: Vital Signs - 24 hr 02/28/20 07:46 02/28/20 08:00 02/28/20 08:37 Temperature 36.8 C Pulse Rate 93 94 89 Respiratory Rate 17 20 Blood Pressure 120/77 Pulse Oximetry 100 100 100 02/28/20 10:00 02/28/20 12:00 02/28/20 12:04 Temperature 37.0 C Pulse Rate 85 88 82 Respiratory Rate 18 18 Blood Pressure 116/69 106/64 Pulse Oximetry 100 100 100 02/28/20 14:00 02/28/20 14:52 02/28/20 16:00 Temperature 37.3 C Pulse Rate 90 85 85 Respiratory Rate 21 H 16 Blood Pressure 117/75 131/81 Pulse Oximetry 100 100 100 02/28/20 16:54 02/28/20 18:00 02/28/20 18:13 Temperature Pulse Rate 86 88 89 Respiratory Rate 22 H Blood Pressure 96/75 L Pulse Oximetry 100 100 02/28/20 20:00 02/28/20 20:36 02/28/20 22:00 Temperature 37.5 C Pulse Rate 83 70 86 Respiratory Rate 16 16 Blood Pressure 107/65 105/59 L Pulse Oximetry 99 100 99 02/28/20 23:21 02/29/20 00:00 02/29/20 02:00 Temperature 36.6 C Pulse Rate 77 83 79 Respiratory Rate 18 16 Blood Pressure 104/68 113/59 L Pulse Oximetry 100 99 100 02/29/20 02:38 02/29/20 04:00 02/29/20 04:41 Temperature 36.9 C Pulse Rate 75 81 Respiratory Rate 18 Blood Pressure 104/65 Pulse Oximetry 100 100 100 02/29/20 06:00 Temperature Pulse Rate 76 Respiratory Rate 17 Blood Pressure 121/71 Pulse Oximetry 100 Intake/Output Intake/Output: Intake & Output 02/26/20 02/27/20 02/28/20 02/29/20 23:59 23:59 23:59 23:59 Intake Total 600 1200 2514 241 Output Total 3000 4644 673 Balance 600 -1800 -961 -434 Meds/Results Medications: Active Medications Generic Name Dose Route Start Last Admin Trade Name Freq PRN Reason Stop Dose Admin Albuterol/Ipratropium 1 puff 02/26/20 20:00 Combivent Respimat INHALATION QIDRT PRN Shortness Of Breath Dextrose 12.5 gm 02/26/20 17:22 Dextrose 50% Syringe IV PUSH PRN PRN Hypoglycemia Protocol Furosemide 20 mg 02/26/20 22:45 02/26/20 23:37 Lasix Inj IV PUSH 20 mg BID DEWAYNE Administration Glucagon 1 mg 02/26/20 17:22 Glucagon For Inj IM PRN PRN Hypoglycemia Protocol Glucose 15 gm 02/26/20 17:22 Glutose 15 PO PRN PRN Hypoglycemia Protocol Heparin Sodium (Porcine) 6,500 units 02/26/20 22:19 Heparin Sodium IV PUSH PRN PRN aPTT less than 55 seconds Heparin Sodium (Porcine) 3,000 units 02/26/20 22:19 02/29/20 02:10 Heparin Sodium IV PUSH 3,000 units PRN PRN Administration aPTT 55 - 70 seconds Hydralazin
[2020-02-29 08:02] LABS: Procalcitonin 1.04 ng/mL (<0.10)
[2020-02-29] MEDS: PROPOFOL IV EMULSION 100 ML 15.2 MG IV CONT ×2 (08:18→13:52)
[2020-02-29 08:34] LABS: Partial Thromboplastin Time 93.9 SECONDS (22.3-36.8)
[2020-02-29] MEDS: TOLNAFTATE 1% POWDER 45 GM BTL 1 APPLIC TOPICAL ×2 (08:36→21:30)
[2020-02-29] MEDS: PANTOPRAZOLE SODIUM IV 40 MG VIAL IV PUSH (08:36)
[2020-02-29 10:57] LABS: Iron 52 ug/dL (37-170)
[2020-02-29 11:06] LABS: Percent Iron Saturation 24 % (20-50)
--- NOTE | 2020-02-29 11:36 | PCDIET ---
ICU Rounding Note: Patient is NPO with plan to try trickle feedings today. Recommended Vital 1.2 at 10mL/hr to which MD provided verbal order. Vital 1.2 at 10mL/hr will provide 264kcal 16g protein over 22 hour period. Last recorded weight is 131.5kg which is increased, despite -I/O. Bowel Motility: +BMs. Labs Reviewed: Glu (109), K (3.2), Na (134), Ferritin (526) Meds Noted: Novolog, Reglan, Protonix, Combivent, Zithromax, Rocephin, Lasix, IV KCl, Vancomycin Additional Notes: Propofol infusing at 15.2mL/hr which provides 401kcal over 24 hour period. Reglan dose has been increased. Patient with areas of maceration and stasis ulcer to right lower leg. Following daily in ICU rounds. Assessing/reassessing every Wednesday/Wednesday.
[2020-02-29] MEDS: HEPARIN SOD/D5W 100 UNITS/ML 25,000 UNITS/250 ML BAG 13 UNITS IV CONT (11:53)
[2020-02-29] MEDS: BISACODYL 10 MG SUPPOSITORY RECTAL (11:54)
--- NOTE | 2020-02-29 12:03 | WPDINTPN ---
Progress Note: A&P Assessment and Plan (1) Acute respiratory failure: Qualifiers: Respiratory failure complication: hypercapnia Qualified Code(s): J96.02 - Acute respiratory failure with hypercapnia Code(s): J96.00 - Acute respiratory failure, unspecified whether with hypoxia or hypercapnia Status: Acute Assessment and Plan: patient with acute hypercapnic respiratory failure likely related to bilateral airspace disease, bacteremia, morbid obesity, dilated bowels, suspect bacterial versus viral pneumonia INFUENZA A & B Negative 02/26/2020 - patient was intubated on 02/26/2020 - currently on CMV mode of ventilation, 40% and peep of 10, tidal volumes of 350 mL - Chest x-ray and ABGs reviewed - with concerns for COVID-19, TERESA-COV-2 pcr swab was NEGATIVE - continue vancomycin, azithromycin, ceftriaxone - on propofol for sedation (2) Sepsis: Qualifiers: Sepsis type: sepsis due to unspecified organism Sepsis acute organ dysfunction status: with acute organ dysfunction Severe sepsis acute organ dysfunction type: acute respiratory failure Acute respiratory failure type: with hypercapnia Severe sepsis shock status: without septic shock Qualified Code(s): A41.9 - Sepsis, unspecified organism; R65.20 - Severe sepsis without septic shock; J96.02 - Acute respiratory failure with hypercapnia Code(s): A41.9 - Sepsis, unspecified organism Status: Acute Assessment and Plan: sepsis related to Staph aureus bacteremia on blood cultures 02/26/2020 - continue antibiotics as above - sputum cultures route sales representative of lower respiratory tract - urine culture with no growth - patient maintaining her blood pressures - limited echo to rule out endocarditis (3) Gram-positive cocci bacteremia: Code(s): R78.81 - Bacteremia Status: Acute Assessment and Plan: 02/26/2020 blood cultures growing Staph aureus 2/2 bottles, sensitivities pending, continue antibiotics as above - echo has been ordered (4) Ileus: Code(s): K56.7 - Ileus, unspecified Status: Acute Assessment and Plan: patient does developed ileus with dilated bowel loops, could be related to his severe sepsis, narcotics - NG tube in place, will increase dose of reglan - appreciate GI evaluation recommendation - continue to follow KUB - will start trickle tube feeds for bowel integrity and possible resolution of the ileus - will maintain normal electrolyte balance (5) Atrial fibrillation: Qualifiers: Atrial fibrillation type: unspecified chronic Qualified Code(s): I48.20 - Chronic atrial fibrillation, unspecified Code(s): I48.91 - Unspecified atrial fibrillation Status: Chronic Assessment and Plan: patient with history of AFib, on heparin infusion at this time - rate controlled - will continue to monitor for now (6) Cellulitis: Qualifiers: Site of cellulitis: extremity Site of cellulitis of extremity: lower extremity Laterality: right Qualified Code(s): L03.115 - Cellulitis of right lower limb Code(s): L03.90 - Cellulitis, unspecified Status: Acute Assessment and Plan: Patient had a right antecubital fossa infection with purulent draianage on 02/12/20. wound culture showing MERCEDES. completed a course of Bactrim on 02/24/20. Condition clinically has resolved. Continue Eucerin and dressing changes to the right lower extremtiy. (7) DVT (deep venous thrombosis): Qualifiers: DVT location: lower extremity Affected thrombotic vein of extremity: unspecified vein of extremity Chronicity: chronic Laterality: unspecified laterality Qualified Code(s): I82.509 - Chronic embolism and thrombosis of unspecified deep veins of unspecified lower extremity Code(s): I82.409 - Acute embolism and thrombosis of unspecified deep veins of unspecified lower extremity Status: Chronic Assessment and Plan:
[2020-02-29 12:06] LABS: Folic Acid 5.3 ng/mL (2.76->20)
[2020-02-29 12:59] LABS: Glucose Point of Care 81 (65-105)
--- NOTE | 2020-02-29 13:25 | PM.IMPN ---
Progress Note: A&P Assessment and Plan (1) Acute respiratory failure: Qualifiers: Respiratory failure complication: hypercapnia Qualified Code(s): J96.02 - Acute respiratory failure with hypercapnia Code(s): J96.00 - Acute respiratory failure, unspecified whether with hypoxia or hypercapnia Status: Acute Assessment and Plan: Probably result of bilateral airspace disease, bacteremia, morbid obesity, dilated bowels and bacterial versus viral pneumonia. Remains on ventilator with management per office mover. Discussed with office mover again today. Chest xray today with airspace opacities in right mid and lower lung zones and left lower lung zone. Cultures as noted below. Continue IV antibiotics as noted below. Continue Combivent p.r.n.. COVID-19 testing negative. (2) Sepsis: Qualifiers: Acute respiratory failure type: with hypercapnia Sepsis acute organ dysfunction status: with acute organ dysfunction Sepsis type: sepsis due to unspecified organism Severe sepsis acute organ dysfunction type: acute respiratory failure Severe sepsis shock status: without septic shock Qualified Code(s): A41.9 - Sepsis, unspecified organism; R65.20 - Severe sepsis without septic shock; J96.02 - Acute respiratory failure with hypercapnia Code(s): A41.9 - Sepsis, unspecified organism Status: Acute Assessment and Plan: Criteria met on admission. Blood cultures x 2 now growing MERCEDES. Discussed with office mover. Limited echocardiogram ordered at [facility]. Urine culture negative. COVID testing negative as noted. Continue IV vancomycin, azithromycin and ceftriaxone. Will continue to follow. (3) Ileus: Code(s): K56.7 - Ileus, unspecified Status: Acute Assessment and Plan: Noted to have distended bowel on imaging from 02/25/2020. Obstructive series obtained and consistent with ileus. NG tube in place. Continue IV Reglan. Will continue to follow. (4) Anemia: Qualifiers: Anemia type: unspecified type Qualified Code(s): D64.9 - Anemia, unspecified Code(s): D64.9 - Anemia, unspecified Status: Acute Assessment and Plan: Hemoglobin slightly lower again today at 7.4. No obvious sign of blood loss. On heparin. Will continue to monitor. (5) Congestive heart failure: Qualifiers: Heart failure chronicity: acute on chronic Heart failure type: diastolic Qualified Code(s): I50.33 - Acute on chronic diastolic (congestive) heart failure Code(s): I50.9 - Heart failure, unspecified Status: Chronic Assessment and Plan: CT of the chest on 02/19/2020 reviewed showing atelecatasis and small right pleural effusion. Echocardiogram on 02/19/2020 with EF 50-55%. Will continue IV Lasix. Will continue to monitor. (6) Atrial fibrillation: Qualifiers: Atrial fibrillation type: unspecified chronic Qualified Code(s): I48.20 - Chronic atrial fibrillation, unspecified Code(s): I48.91 - Unspecified atrial fibrillation Status: Chronic Assessment and Plan: Telemetry reviewed on 02/29/2020 with atrial fibrillation with heart rate remaining controlled. Not on medication at this time but will continue to monitor. Initiate medication if needed. On heparin drip as noted. (7) Hypertension: Qualifiers: Hypertension type: essential hypertension Qualified Code(s): I10 - Essential (primary) hypertension Code(s): I10 - Essential (primary) hypertension Status: Chronic Assessment and Plan: Blood pressure reviewed on 02/29/2020 and remains stable. Will continue to hold metoprolol and diltiazem. Continue to monitor. IV hydralazine is available if blood pressure should increase. (8) Cellulitis: Qualifiers: Laterality: right Site of cellulitis: extremity Site of cellulitis of extremity: lower extremity Qualified Code(s): L03.115 - Cellulitis of right lower
[2020-02-29 15:44] LABS: Partial Thromboplastin Time 93.1 SECONDS (22.3-36.8)
[2020-02-29 17:43] LABS: Glucose Point of Care 84 (65-105)
[2020-03-01] VITALS (28 sets, daily range): BP systolic 93–145; BP diastolic 55–114; PULSE 66–99; RESP 12–25; TEMP 36.4–37.3; O2SAT 93–100
[2020-03-01] MEDS: METOCLOPRAMIDE HCL INJ 10 MG/2 ML VIAL IV PUSH ×4 (00:22→19:42)
[2020-03-01] MEDS: PROPOFOL IV EMULSION 100 ML 19 MG IV CONT ×2 (02:44→07:31)
[2020-03-01 03:42] LABS: Alveolar/Arterial O2 Gradient 104.3 mmHg; Base Excess ABG 10.2 mEq/l (+/-2.0); Carboxyhemoglobin 0.3 % THb (0-2.0); Fractional Inspired Oxygen 35 %; HCO3 ABG 33.9 mEq/l (22.0-26.0); Methemoglobin ABG 0.5 %THb (0-1.5); Oxygen Content ABG 11.2 %vol (16.0-22.0); Oxygen Saturation ABG 97.9 % (95.0-100.0); Oxyhemoglobin 95.7 % THb (90.0-100.0); PCO2 ABG 42.1 mmHg (35.0-45.0); PO2 ABG 96.3 mmHg (80.0-100.0); PO2 FiO2 Ratio Arterial Blood 2.75 %; Reduced Hemoglobin 3.5 %THb (0-5.0); Total Hemoglobin 8.2 g/dL (12.0-18.0)
[2020-03-01 03:44] LABS: Site Drawn RIGHT BRACHIAL; pH ABG 7.524 (7.350-7.450)
[2020-03-01 03:45] LABS: Arterial Blood Gas PEEP 10 cmH2O; Arterial Blood Gas Tidal Volume 350 ml; Arterial Blood Gas Vent Mode CMV; Arterial Blood Gas Ventilator rate 16 /MIN; Device VENTILATOR
[2020-03-01 04:05] LABS: Basophils Percent Auto 0.3 % (0.2-1.2); Eosinophils Absolute Auto 0.2 K/mm3 (0-0.3); Eosinophils Percent Auto 1.7 % (0-4.4); Hematocrit 23.5 % (37.0-47.0); Immature Granulocyte Absolute 0.29 K/mm3 (0.00-0.031); Immature Granulocyte Percent A 3.2 % (0-0.5); Lymphocytes Absolute Auto 1.25 K/mm3 (0.9-3.2); Lymphocytes Percent Auto 13.9 % (18.3-44.2); Mean Corpuscular HGB Conc 29.4 g/dl (32-36); Mean Corpuscular Hemoglobin 27.5 pg (26-34); Mean Corpuscular Volume 93.6 fl (80-100); Mean Platelet Volume 9.7 fl (7.4-10.4); Monocytes Absolute Auto 0.7 K/mm3 (0.1-0.6); Monocytes Percent Auto 7.8 % (2.6-8.5); Neutrophils Absolute Auto 6.6 K/mm3 (1.3-6.7); Neutrophils Percent Auto 73.1 % (45.5-73.1); Platelet Count Result 251 k/mm3 (150-375); Red Blood Count 2.51 M/mm3 (4.2-5.4); Red Cell Distribution Width 16.6 % (11.5-14.5)
[2020-03-01 04:16] LABS: INR 1.2; Prothrombin Time 14.6 Seconds (11.1-14.7)
[2020-03-01 04:17] LABS: Lactic Acid 0.9 mmol/L (0.7-2.1)
[2020-03-01 04:18] LABS: Partial Thromboplastin Time 90.2 SECONDS (22.3-36.8)
[2020-03-01 04:27] LABS: Blood Urea Nitrogen 12 mg/dL (7-17); Calcium 7.8 mg/dL (8.4-10.2); Carbon Dioxide 34 mmol/L (22-30); Chloride 96 mmol/L (98-107); Estimated CRCL calculation 63 ml/min; Estimated Glomerular Filt Rate 55; Glucose 107 mg/dL (65-105); Phosphorus 4.6 mg/dL (2.5-4.5); Potassium 3.4 mmol/L (3.4-5.0); Sodium 134 mmol/L (137-145); Triglycerides 129 mg/dL (<150)
[2020-03-01 04:30] LABS: Hemoglobin 6.9 g/dL (12.0-15.0)
[2020-03-01 04:32] LABS: Macrocytosis 1+ (NORMAL); Microcytosis 1+ (NORMAL); Platelet Estimate Adequate (Adequate)
[2020-03-01 04:49] LABS: CRP 14.7 mg/dL (<1.0)
[2020-03-01] MEDS: SODIUM CHLORIDE 0.9% IV 250 ML 30 ML IV CONT (06:22)
[2020-03-01] MEDS: HEPARIN SOD/D5W 100 UNITS/ML 25,000 UNITS/250 ML BAG 13 UNITS IV CONT (07:32)
--- NOTE | 2020-03-01 08:26 | WPDGIPROGNO ---
Progress Note: A&P Additional Plan Patient remains on the ventilator. Tolerating tube feedings at a slow rate. Has passed several bowel movements. On physical exam. Patient intubated. Unable to give history. Abdomen is obese. Bowel sounds are present. Abdomen appears somewhat softer today. Impression 1. Resolving ileus. Probably multifactorial. Plan is to increase tube feeding rate. Continue Reglan for several days. Before tapering. 2. Respiratory failure. Patient remains on ventilator. 3. Pneumonia. 4. Obesity. 4. Anemia. Hemoglobin 6.8, hematocrit 23.5 this morning. No obvious signs of GI blood loss. Stool was Hemoccult negative. May want to cover prophylactically for stress ulcer. 5. Atrial fibrillation. Patient remains on anticoagulation. Will continue to monitor hemoglobin closely. Transfuse as necessary Subjective Date/time seen: 03/01/20 08:26 Objective Data Vital Signs Vital Signs: Vital Signs - 24 hr 02/29/20 08:48 02/29/20 10:00 02/29/20 11:05 Temperature Pulse Rate 85 78 78 Respiratory Rate 21 H Blood Pressure 113/74 Pulse Oximetry 100 100 100 02/29/20 12:00 02/29/20 13:36 02/29/20 14:00 Temperature 36.9 C Pulse Rate 94 84 79 Respiratory Rate 26 H 20 Blood Pressure 102/74 101/77 Pulse Oximetry 100 100 100 02/29/20 16:00 02/29/20 17:27 02/29/20 18:00 Temperature 36.9 C Pulse Rate 77 86 100 Respiratory Rate 19 22 H Blood Pressure 109/66 119/65 Pulse Oximetry 99 98 100 02/29/20 20:00 02/29/20 20:03 02/29/20 22:00 Temperature 36.4 C Pulse Rate 83 88 82 Respiratory Rate 21 H 16 Blood Pressure 115/70 102/65 Pulse Oximetry 100 100 99 02/29/20 23:36 03/01/20 00:00 03/01/20 02:00 Temperature 37.2 C Pulse Rate 84 79 75 Respiratory Rate 16 16 Blood Pressure 101/57 L 93/64 L Pulse Oximetry 98 98 98 03/01/20 02:32 03/01/20 04:00 03/01/20 05:12 Temperature 36.9 C Pulse Rate 70 68 69 Respiratory Rate 16 Blood Pressure 99/63 L Pulse Oximetry 99 98 99 03/01/20 06:00 03/01/20 07:28 03/01/20 07:44 Temperature 36.4 C L 36.4 C Pulse Rate 81 81 86 Respiratory Rate 16 16 25 H Blood Pressure 125/69 125/69 117/78 Pulse Oximetry 100 100 100 03/01/20 08:20 Temperature 36.9 C Pulse Rate 89 Respiratory Rate 22 H Blood Pressure 120/73 Pulse Oximetry 100 Intake/Output Intake/Output: Intake & Output 02/27/20 02/28/20 02/29/20 03/01/20 23:59 23:59 23:59 23:59 Intake Total 1200 2514 986 487 Output Total 3000 8475 1125 525 Balance -1800 -961 -139 -38 Meds/Results Medications: Active Medications Generic Name Dose Route Start Last Admin Trade Name Freq PRN Reason Stop Dose Admin Albuterol/Ipratropium 1 puff 02/26/20 20:00 Combivent Respimat INHALATION QIDRT PRN Shortness Of Breath Dextrose 12.5 gm 02/26/20 17:22 Dextrose 50% Syringe IV PUSH PRN PRN Hypoglycemia Protocol Furosemide 20 mg 02/26/20 22:45 02/26/20 23:37 Lasix Inj IV PUSH 20 mg BID DEWAYNE Administration Glucagon 1 mg 02/26/20 17:22 Glucagon For Inj IM PRN PRN Hypoglycemia Protocol Glucose 15 gm 02/26/20 17:22 Glutose 15 PO PRN PRN Hypoglycemia Protocol Heparin Sodium (Porcine) 6,500 units 02/26/20 22:19 Heparin Sodium IV PUSH PRN PRN aPTT less than 55 seconds Heparin Sodium (Porcine) 3,000 units 02/26/20 22:19 02/29/20 02:10 Heparin Sodium IV PUSH 3,000 units PRN PRN Administration aPTT 55 - 70 seconds Hydralazine HCl 10 mg 02/26/20 21:52 Apresoline Hcl Inj IV PUSH Q8H PRN Blood Pressure - High Ceftriaxone Sodium/Dextrose 1 gm in 50 mls @ 100 mls/hr 02/27/20 18:00 02/29/20 17:45 Rocephin 1 Gm/D5w 50 Ml IVPB Infused QPM DEWAYNE Infusion Dextrose 1,000 mls @ 100 mls/hr 02/26/20 17:22 Dextrose 5% 1,000 Ml IVPB PRN PRN Hypoglycemia Protocol Azithromycin 500 mg in 250 mls @ 250 mls/
[2020-03-01] MEDS: PANTOPRAZOLE SODIUM IV 40 MG VIAL IV PUSH (08:32)
[2020-03-01] MEDS: TOLNAFTATE 1% POWDER 45 GM BTL 1 APPLIC TOPICAL ×2 (08:33→20:12)
[2020-03-01 09:38] LABS: Glucose Point of Care 110 (65-105)
--- NOTE | 2020-03-01 11:34 | PCDIET ---
Nutrition Follow-Up Complete: Nutrition Diagnosis: Inadequate oral intake related to oral intubation as evidenced by NPO status. Nutrition Goal: Patient to meet estimated nutritional needs. Goal in progress. Patient tolerated Vital 1.2 at 10mL/hr. MD ordered increase to 20mL/hr rate. Agree with increased rate. Recommend ultimate goal of 45mL/hr Vital 1.2 once ileus resolves, given continued rate of Propofol. Last recorded weight is 126.9 kg which is decreased from last review, but stable with admission. Bowel Motility: +BM today. Labs Reviewed: Glu (107), BUN (34), Na (134), PO4 (4.6), CRP (14.7), TG (129) Meds Noted: Combivent, Zithromax, Novolog, Reglan, Rocephin, Lasix, Protonix, KCl, Vancomycin, Propofol (19mL/hr provides 501kcal over 24 hour period) Additional Notes: Breast folds, abdominal folds macerated. Right lower leg with venous stasis ulcer. Will continue to monitor with same goal. Nutrition Monitoring and Evaluation: Follow up every Wednesday/Wednesday. Follow daily in ICU rounds.
--- NOTE | 2020-03-01 11:55 | PM.IMPN ---
Progress Note: A&P Assessment and Plan (1) Acute respiratory failure: Qualifiers: Respiratory failure complication: hypercapnia Qualified Code(s): J96.02 - Acute respiratory failure with hypercapnia Code(s): J96.00 - Acute respiratory failure, unspecified whether with hypoxia or hypercapnia Status: Acute Assessment and Plan: Probably result of bilateral airspace disease, bacteremia, morbid obesity, dilated bowels and bacterial versus viral pneumonia. Remains on ventilator with management per utility bagger. Improvements. Chest x-ray today with stable airspace opacities in mid and lower lung zones. COVID-19 testing negative. Continue IV antibiotics as noted below. Continue Combivent p.r.n.. Hopefully will be able to wean off ventilator soon. (2) Sepsis: Qualifiers: Acute respiratory failure type: with hypercapnia Sepsis acute organ dysfunction status: with acute organ dysfunction Sepsis type: sepsis due to unspecified organism Severe sepsis acute organ dysfunction type: acute respiratory failure Severe sepsis shock status: without septic shock Qualified Code(s): A41.9 - Sepsis, unspecified organism; R65.20 - Severe sepsis without septic shock; J96.02 - Acute respiratory failure with hypercapnia Code(s): A41.9 - Sepsis, unspecified organism Status: Acute Assessment and Plan: Criteria met on admission. Blood cultures x 2 now growing MERCEDES. Discussed with utility bagger. Limited echocardiogram ordered with no obvious vegetation seen and EF 60-65%. Urine culture negative. COVID testing negative as noted. Continue IV vancomycin, azithromycin and ceftriaxone. Will continue to follow. (3) Anemia: Qualifiers: Anemia type: unspecified type Qualified Code(s): D64.9 - Anemia, unspecified Code(s): D64.9 - Anemia, unspecified Status: Acute Assessment and Plan: Hemoglobin decreased to 6.9 this morning with 1 unit PRBC transfused. Repeat hemoglobin 8.1. Will continue to monitor. Transfuse as needed. (4) Ileus: Code(s): K56.7 - Ileus, unspecified Status: Acute Assessment and Plan: Noted to have distended bowel on imaging from 02/25/2020. Obstructive series obtained and consistent with ileus. NG tube in place. Continue IV Reglan. Will continue to follow. (5) Congestive heart failure: Qualifiers: Heart failure chronicity: acute on chronic Heart failure type: diastolic Qualified Code(s): I50.33 - Acute on chronic diastolic (congestive) heart failure Code(s): I50.9 - Heart failure, unspecified Status: Chronic Assessment and Plan: CT of the chest on 02/19/2020 reviewed showing atelecatasis and small right pleural effusion. Echocardiogram on 02/19/2020 with EF 50-55%. New limited echocardiogram with EF 60-65% as noted above. Will continue IV Lasix. Will continue to monitor. (6) Atrial fibrillation: Qualifiers: Atrial fibrillation type: unspecified chronic Qualified Code(s): I48.20 - Chronic atrial fibrillation, unspecified Code(s): I48.91 - Unspecified atrial fibrillation Status: Chronic Assessment and Plan: Telemetry reviewed on 03/01/2020 with atrial fibrillation with heart rate still controlled. Not on medication at this time but will continue to monitor. Initiate medication if needed. On heparin drip as noted. (7) Hypertension: Qualifiers: Hypertension type: essential hypertension Qualified Code(s): I10 - Essential (primary) hypertension Code(s): I10 - Essential (primary) hypertension Status: Chronic Assessment and Plan: Blood pressure reviewed on 03/01/2020 and generally stable. Will continue to hold metoprolol and diltiazem. Continue to monitor. IV hydralazine is available if blood pressure should increase. (8) Cellulitis: Qualifiers: Laterality: right Site of cellulitis: extremity Site of celluliti
[2020-03-01 12:00] LABS: Glucose Point of Care 83 (65-105)
[2020-03-01 12:08] LABS: Hematocrit 26.9 % (37.0-47.0); Hemoglobin 8.1 g/dL (12.0-15.0)
[2020-03-01] MEDS: PROPOFOL IV EMULSION 100 ML 11.4 MG IV CONT ×2 (15:09→23:32)
--- NOTE | 2020-03-01 15:36 | WPDINTPN ---
Progress Note: A&P Assessment and Plan (1) Acute respiratory failure: Qualifiers: Respiratory failure complication: hypercapnia Qualified Code(s): J96.02 - Acute respiratory failure with hypercapnia Code(s): J96.00 - Acute respiratory failure, unspecified whether with hypoxia or hypercapnia Status: Acute Assessment and Plan: patient with acute hypercapnic respiratory failure likely related to bilateral airspace disease, bacteremia, morbid obesity, dilated bowels, suspect bacterial versus viral pneumonia INFUENZA A & B Negative 02/26/2020 - patient was intubated on 02/26/2020 - currently on CMV mode of ventilation, 40% and peep of 10, tidal volumes of 350 mL - Chest x-ray and ABGs reviewed - with concerns for COVID-19, TERESA-COV-2 pcr swab was NEGATIVE - continue vancomycin, azithromycin, ceftriaxone - on propofol for sedation (2) Sepsis: Qualifiers: Sepsis type: sepsis due to unspecified organism Sepsis acute organ dysfunction status: with acute organ dysfunction Severe sepsis acute organ dysfunction type: acute respiratory failure Acute respiratory failure type: with hypercapnia Severe sepsis shock status: without septic shock Qualified Code(s): A41.9 - Sepsis, unspecified organism; R65.20 - Severe sepsis without septic shock; J96.02 - Acute respiratory failure with hypercapnia Code(s): A41.9 - Sepsis, unspecified organism Status: Acute Assessment and Plan: sepsis related to Staph aureus bacteremia on blood cultures 02/26/2020 - continue antibiotics as above - sputum cultures account executive sales representative of lower respiratory tract - urine culture with no growth - patient maintaining her blood pressures - limited echo to rule out endocarditis (3) Gram-positive cocci bacteremia: Code(s): R78.81 - Bacteremia Status: Acute Assessment and Plan: 02/26/2020 blood cultures growing Staph aureus 2/2 bottles, sensitivities pending, continue antibiotics as above - echo has been ordered to rule out endocarditis (4) Ileus: Code(s): K56.7 - Ileus, unspecified Status: Acute Assessment and Plan: patient developed ileus with dilated bowel loops, could be related to his severe sepsis, narcotics - NG tube in place, will increase dose of reglan - appreciate GI evaluation recommendation - continue to follow KUB - Patient has been tolerating tube feeds at 10 mL/hour, increased to 20 mL/hour - will maintain normal electrolyte balance, replace potassium (5) Atrial fibrillation: Qualifiers: Atrial fibrillation type: unspecified chronic Qualified Code(s): I48.20 - Chronic atrial fibrillation, unspecified Code(s): I48.91 - Unspecified atrial fibrillation Status: Chronic Assessment and Plan: patient with history of AFib, on heparin infusion at this time - rate controlled - will continue to monitor for now (6) Cellulitis: Qualifiers: Site of cellulitis: extremity Site of cellulitis of extremity: lower extremity Laterality: right Qualified Code(s): L03.115 - Cellulitis of right lower limb Code(s): L03.90 - Cellulitis, unspecified Status: Acute Assessment and Plan: Patient had a right antecubital fossa infection with purulent draianage on 02/12/20. wound culture showing MERCEDES. completed a course of Bactrim on 02/24/20. Condition clinically has resolved. Continue Eucerin and dressing changes to the right lower extremtiy. (7) DVT (deep venous thrombosis): Qualifiers: DVT location: lower extremity Affected thrombotic vein of extremity: unspecified vein of extremity Chronicity: chronic Laterality: unspecified laterality Qualified Code(s): I82.509 - Chronic embolism and thrombosis of unspecified deep veins of unspecified lower extremity Code(s): I82.409 - Acute embolism and thrombosis of unspecified deep veins of unspecified lower extremity Status: Chronic
[2020-03-01 18:21] LABS: Glucose Point of Care 100 (65-105)
[2020-03-02] VITALS (27 sets, daily range): BP systolic 99–144; BP diastolic 55–95; PULSE 63–130; RESP 12–29; TEMP 36.6–37.3; O2SAT 95–100
[2020-03-02 00:07] LABS: Glucose Point of Care 113 (65-105)
[2020-03-02] MEDS: METOCLOPRAMIDE HCL INJ 10 MG/2 ML VIAL IV PUSH ×5 (00:40→23:44)
[2020-03-02 04:00] LABS: Alveolar/Arterial O2 Gradient 143.4 mmHg; Base Excess ABG 8.8 mEq/l (+/-2.0); Carboxyhemoglobin 0.3 % THb (0-2.0); Fractional Inspired Oxygen 35 %; HCO3 ABG 31.3 mEq/l (22.0-26.0); Methemoglobin ABG 0.3 %THb (0-1.5); Oxygen Content ABG 12.8 %vol (16.0-22.0); Oxygen Saturation ABG 95.4 % (95.0-100.0); Oxyhemoglobin 92.6 % THb (90.0-100.0); PCO2 ABG 34.9 mmHg (35.0-45.0); PO2 ABG 65.6 mmHg (80.0-100.0); PO2 FiO2 Ratio Arterial Blood 1.87 %; Reduced Hemoglobin 6.8 %THb (0-5.0); Total Hemoglobin 9.8 g/dL (12.0-18.0)
[2020-03-02 04:01] LABS: Modified Allen's Test Pass; Site Drawn RIGHT RADIAL; pH ABG 7.571 (7.350-7.450)
[2020-03-02 04:02] LABS: Device VENTILATOR
[2020-03-02 04:04] LABS: Arterial Blood Gas Minute Volume 6 LPM; Arterial Blood Gas PEEP 10 cmH2O; Arterial Blood Gas Vent Mode ASV; Arterial Blood Gas Ventilator rate 13 /MIN
[2020-03-02 05:31] LABS: Basophils Percent Auto 0.2 % (0.2-1.2); Eosinophils Absolute Auto 0.1 K/mm3 (0-0.3); Hemoglobin 8.1 g/dL (12.0-15.0); Lymphocytes Absolute Auto 1.12 K/mm3 (0.9-3.2); Lymphocytes Percent Auto 11.4 % (18.3-44.2); Mean Corpuscular Volume 93.4 fl (80-100); Monocytes Absolute Auto 0.7 K/mm3 (0.1-0.6); Monocytes Percent Auto 7.3 % (2.6-8.5); Neutrophils Absolute Auto 7.7 K/mm3 (1.3-6.7); Neutrophils Percent Auto 78.1 % (45.5-73.1); Platelet Count Result 282 k/mm3 (150-375); Red Blood Count 2.89 M/mm3 (4.2-5.4); Red Cell Distribution Width 16.8 % (11.5-14.5); White Blood Count 9.8 K/mm3 (4.5-10.0)
[2020-03-02 05:43] LABS: Blood Urea Nitrogen 11 mg/dL (7-17); Calcium 8.1 mg/dL (8.4-10.2); Carbon Dioxide 33 mmol/L (22-30); Chloride 99 mmol/L (98-107); Estimated CRCL calculation 62 ml/min; Estimated Glomerular Filt Rate 55; Glucose 120 mg/dL (65-105); INR 1.2; Lactate Dehydrogenase 357 U/L (313-618); Potassium 3.6 mmol/L (3.4-5.0); Prothrombin Time 14.4 Seconds (11.1-14.7); Sodium 134 mmol/L (137-145)
[2020-03-02 05:44] LABS: Partial Thromboplastin Time 72.3 SECONDS (22.3-36.8)
[2020-03-02 05:46] LABS: D Dimer 2.86 ug/mL (<0.48)
[2020-03-02] MEDS: PROPOFOL IV EMULSION 100 ML 11.4 MG IV CONT ×2 (05:53→17:06)
[2020-03-02] MEDS: HEPARIN SOD/D5W 100 UNITS/ML 25,000 UNITS/250 ML BAG 13 UNITS IV CONT (05:55)
[2020-03-02 06:13] LABS: Vancomycin Trough 13.1 ug/mL (10.0-20.0)
--- NOTE | 2020-03-02 07:44 | WPDGIPROGNO ---
Progress Note: A&P Additional Plan Patient remains on the ventilator. Currently tolerating NG tube feedings. Physical exam reveals abdomen to be obese. Bowel sounds are present. Abdomen is very much softer. No organomegaly evident. Nontender. Impression 1. Abdominal ileus appears resolved clinically. Plan to advance tube feedings. May start tapering off Reglan. 2. Pneumonia. 3. Atrial fibrillation. 4. Obesity. 5. Anemia. Likely multifactorial. Stool was Hemoccult negative. Plan to advance tube feedings as tolerated, and decrease dose of Reglan. Subjective Date/time seen: 03/02/20 07:44 Objective Data Vital Signs Vital Signs: Vital Signs - 24 hr 03/01/20 08:00 03/01/20 08:20 03/01/20 09:00 Temperature 36.9 C 36.8 C Pulse Rate 80 89 79 Respiratory Rate 22 H 13 Blood Pressure 120/73 104/73 Pulse Oximetry 100 100 03/01/20 09:30 03/01/20 09:43 03/01/20 10:00 Temperature 36.9 C Pulse Rate 69 67 68 Respiratory Rate 13 13 Blood Pressure 102/75 112/74 Pulse Oximetry 98 100 100 03/01/20 10:24 03/01/20 11:10 03/01/20 12:00 Temperature Pulse Rate 66 72 73 Respiratory Rate 13 Blood Pressure 112/74 Pulse Oximetry 97 98 03/01/20 12:03 03/01/20 13:56 03/01/20 14:00 Temperature 37.3 C Pulse Rate 73 96 93 Respiratory Rate 13 12 Blood Pressure 112/82 145/114 H Pulse Oximetry 98 96 03/01/20 14:45 03/01/20 16:00 03/01/20 17:55 Temperature 36.9 C Pulse Rate 99 95 99 Respiratory Rate 18 Blood Pressure 111/75 Pulse Oximetry 99 93 99 03/01/20 18:00 03/01/20 19:37 03/01/20 20:00 Temperature 37.2 C Pulse Rate 90 93 91 Respiratory Rate 19 17 Blood Pressure 112/74 119/70 Pulse Oximetry 100 100 99 03/01/20 22:00 03/01/20 23:20 03/02/20 00:00 Temperature 37.1 C Pulse Rate 75 74 76 Respiratory Rate 15 13 Blood Pressure 112/55 L 125/86 Pulse Oximetry 98 98 95 03/02/20 01:10 03/02/20 02:00 03/02/20 03:59 Temperature Pulse Rate 70 71 63 Respiratory Rate 16 13 Blood Pressure 117/77 105/67 Pulse Oximetry 96 96 97 03/02/20 04:00 03/02/20 04:58 03/02/20 06:00 Temperature 36.9 C Pulse Rate 68 70 72 Respiratory Rate 12 Blood Pressure 114/85 Pulse Oximetry 98 100 Intake/Output Intake/Output: Intake & Output 02/28/20 02/29/20 03/01/20 03/02/20 23:59 23:59 23:59 23:59 Intake Total 2514 1486 1737 683 Output Total 3471 1125 1125 250 Balance -961 361 612 433 Meds/Results Medications: Active Medications Generic Name Dose Route Start Last Admin Trade Name Freq PRN Reason Stop Dose Admin Albuterol/Ipratropium 1 puff 02/26/20 20:00 Combivent Respimat INHALATION QIDRT PRN Shortness Of Breath Dextrose 12.5 gm 02/26/20 17:22 Dextrose 50% Syringe IV PUSH PRN PRN Hypoglycemia Protocol Furosemide 20 mg 02/26/20 22:45 02/26/20 23:37 Lasix Inj IV PUSH 20 mg BID DEWAYNE Administration Glucagon 1 mg 02/26/20 17:22 Glucagon For Inj IM PRN PRN Hypoglycemia Protocol Glucose 15 gm 02/26/20 17:22 Glutose 15 PO PRN PRN Hypoglycemia Protocol Heparin Sodium (Porcine) 6,500 units 02/26/20 22:19 Heparin Sodium IV PUSH PRN PRN aPTT less than 55 seconds Heparin Sodium (Porcine) 3,000 units 02/26/20 22:19 02/29/20 02:10 Heparin Sodium IV PUSH 3,000 units PRN PRN Administration aPTT 55 - 70 seconds Hydralazine HCl 10 mg 02/26/20 21:52 Apresoline Hcl Inj IV PUSH Q8H PRN Blood Pressure - High Ceftriaxone Sodium/Dextrose 1 gm in 50 mls @ 100 mls/hr 02/27/20 18:00 03/01/20 18:43 Rocephin 1 Gm/D5w 50 Ml IVPB Infused QPM DEWAYNE Infusion Dextrose 1,000 mls @ 100 mls/hr 02/26/20 17:22 Dextrose 5% 1,000 Ml IVPB PRN PRN Hypoglycemia Protocol Azithromycin 500 mg in 250 mls @ 250 mls/hr 02/27/20 10:00 03/01/20 09:32 Zithromax IVPB Infused DAILY DEWAYNE Infusion Propofol 1
[2020-03-02] MEDS: PANTOPRAZOLE SODIUM IV 40 MG VIAL IV PUSH (09:01)
[2020-03-02] MEDS: TOLNAFTATE 1% POWDER 45 GM BTL 1 APPLIC TOPICAL ×2 (09:01→20:57)
[2020-03-02 11:32] LABS: Glucose Point of Care 103 (65-105)
[2020-03-02] MEDS: METOPROLOL TARTRATE INJ 5 MG/5 ML VIAL IV PUSH (12:33)
--- NOTE | 2020-03-02 13:39 | PM.IMPN ---
Progress Note: A&P Assessment and Plan (1) Acute respiratory failure: Qualifiers: Respiratory failure complication: hypercapnia Qualified Code(s): J96.02 - Acute respiratory failure with hypercapnia Code(s): J96.00 - Acute respiratory failure, unspecified whether with hypoxia or hypercapnia Status: Acute Assessment and Plan: Probably result of bilateral airspace disease, bacteremia, morbid obesity, dilated bowels and bacterial versus viral pneumonia. Remains on ventilator with management per [employer] consultant. Discussed with [employer] consultant. Had breathing trial today but not yet ready for extubation. Chest x-ray today with slight improvement of airspace opacities in mid and lower lung zones. COVID-19 testing negative. Continue IV antibiotics as noted below. Continue Combivent p.r.n.. Continue to monitor. (2) Sepsis: Qualifiers: Acute respiratory failure type: with hypercapnia Sepsis acute organ dysfunction status: with acute organ dysfunction Sepsis type: sepsis due to unspecified organism Severe sepsis acute organ dysfunction type: acute respiratory failure Severe sepsis shock status: without septic shock Qualified Code(s): A41.9 - Sepsis, unspecified organism; R65.20 - Severe sepsis without septic shock; J96.02 - Acute respiratory failure with hypercapnia Code(s): A41.9 - Sepsis, unspecified organism Status: Acute Assessment and Plan: Criteria met on admission. Blood cultures x 2 now growing MERCEDES. Discussed with [employer] consultant. Limited echocardiogram ordered with no obvious vegetation seen and EF 60-65%. Urine culture negative. COVID testing negative as noted. Continue IV vancomycin, azithromycin and ceftriaxone. Repeat blood cultures initiated. Will continue to follow. (3) Anemia: Qualifiers: Anemia type: unspecified type Qualified Code(s): D64.9 - Anemia, unspecified Code(s): D64.9 - Anemia, unspecified Status: Acute Assessment and Plan: Hemoglobin decreased to 6.9 on 03/01/2020 with 1 unit PRBC transfused. Hgb stable at 8.1 today. Will continue to monitor. Transfuse as needed. (4) Atrial fibrillation: Qualifiers: Atrial fibrillation type: unspecified chronic Qualified Code(s): I48.20 - Chronic atrial fibrillation, unspecified Code(s): I48.91 - Unspecified atrial fibrillation Status: Chronic Assessment and Plan: Telemetry reviewed on 03/02/2020 with atrial fibrillation with heart rate noted to be increased earlier today. Received 1 dose of metoprolol with heart rate improved. Will continue to monitor. Remains on heparin drip for anticoagulation. (5) Hypertension: Qualifiers: Hypertension type: essential hypertension Qualified Code(s): I10 - Essential (primary) hypertension Code(s): I10 - Essential (primary) hypertension Status: Chronic Assessment and Plan: Blood pressure reviewed on 03/02/2020 and stable. Will continue to hold scheduled metoprolol and diltiazem. Continue to monitor. IV hydralazine is available if blood pressure should increase. (6) Ileus: Code(s): K56.7 - Ileus, unspecified Status: Acute Assessment and Plan: Noted to have distended bowel on imaging from 02/25/2020. Obstructive series obtained and consistent with ileus. NG tube remains in place. Continue IV Reglan. Will continue to follow. (7) Congestive heart failure: Qualifiers: Heart failure chronicity: acute on chronic Heart failure type: diastolic Qualified Code(s): I50.33 - Acute on chronic diastolic (congestive) heart failure Code(s): I50.9 - Heart failure, unspecified Status: Chronic Assessment and Plan: CT of the chest on 02/19/2020 reviewed showing atelecatasis and small right pleural effusion. Echocardiogram on 02/19/2020 with EF 50-55%. New limited echocardiogram with EF 60-65% as noted above. Will continue IV Lasix. Will
--- NOTE | 2020-03-02 14:13 | WPDINTPN ---
Progress Note: A&P Assessment and Plan (1) Acute respiratory failure: Qualifiers: Respiratory failure complication: hypercapnia Qualified Code(s): J96.02 - Acute respiratory failure with hypercapnia Code(s): J96.00 - Acute respiratory failure, unspecified whether with hypoxia or hypercapnia Status: Acute Assessment and Plan: patient with acute hypercapnic respiratory failure likely related to bilateral airspace disease, bacteremia, morbid obesity, dilated bowels, suspect bacterial versus viral pneumonia INFUENZA A & B Negative 02/26/2020 - patient was intubated on 02/26/2020 - currently on CMV mode of ventilation, 40% and peep of 10, tidal volumes of 350 mL - Chest x-ray and ABGs reviewed - with concerns for COVID-19, TERESA-COV-2 pcr swab was NEGATIVE - continue vancomycin, azithromycin, ceftriaxone - Weaned propofol to off, patient placed on SBT, RSBI was high, patient was tachypneic, tachycardic, patient Tidal volumes were low. Will continue ASV mode of ventilation (2) Sepsis: Qualifiers: Sepsis type: sepsis due to unspecified organism Sepsis acute organ dysfunction status: with acute organ dysfunction Severe sepsis acute organ dysfunction type: acute respiratory failure Acute respiratory failure type: with hypercapnia Severe sepsis shock status: without septic shock Qualified Code(s): A41.9 - Sepsis, unspecified organism; R65.20 - Severe sepsis without septic shock; J96.02 - Acute respiratory failure with hypercapnia Code(s): A41.9 - Sepsis, unspecified organism Status: Acute Assessment and Plan: sepsis related to Staph aureus bacteremia on blood cultures 02/26/2020 - continue antibiotics as above - sputum cultures 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 representative graphic art of lower respiratory tract - urine culture with no growth - patient maintaining her blood pressures - limited echo to rule out endocarditis (3) Gram-positive cocci bacteremia: Code(s): R78.81 - Bacteremia Status: Acute Assessment and Plan: 02/26/2020 blood cultures growing Staph aureus 2/2 bottles, sensitivities pending, continue antibiotics as above - limited echo was done on 02/29/2020, no obvious vegetations are seen, EF 60-65% (4) Ileus: Code(s): K56.7 - Ileus, unspecified Status: Acute Assessment and Plan: patient developed ileus with dilated bowel loops, could be related to his severe sepsis, narcotics - NG tube in place, continue Reglan - appreciate GI evaluation recommendation - continue to follow KUB - patient tolerating tube feeds, will increase to goal - will maintain normal electrolyte balance, replace potassium (5) Atrial fibrillation: Qualifiers: Atrial fibrillation type: unspecified chronic Qualified Code(s): I48.20 - Chronic atrial fibrillation, unspecified Code(s): I48.91 - Unspecified atrial fibrillation Status: Chronic Assessment and Plan: patient with history of AFib, on heparin infusion at this time - rate controlled, will restart metoprolol per tube - will continue to monitor for now (6) Cellulitis: Qualifiers: Site of cellulitis: extremity Site of cellulitis of extremity: lower extremity Laterality: right Qualified Code(s): L03.115 - Cellulitis of right lower limb Code(s): L03.90 - Cellulitis, unspecified Status: Acute Assessment and Plan: Patient had a right antecubital fossa infection with purulent draianage on 02/12/20. wound culture showing MERCEDES. completed a course of Bactrim on 02/24/20. Condition clinically has resolved. Continue Eucerin and dressing changes to the right lower extremtiy. 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
[2020-03-02 17:19] LABS: Glucose Point of Care 94 (65-105)
[2020-03-02] MEDS: METOPROLOL TARTRATE 12.5 MG TABLET PO (20:57)
[2020-03-03] VITALS (24 sets, daily range): BP systolic 100–157; BP diastolic 59–94; PULSE 63–118; RESP 12–29; TEMP 36.6–37.1; O2SAT 96–100
[2020-03-03 00:13] LABS: Glucose Point of Care 87 (65-105)
[2020-03-03] MEDS: PROPOFOL IV EMULSION 100 ML 11.4 MG IV CONT ×3 (01:37→23:44)
[2020-03-03] MEDS: HEPARIN SOD/D5W 100 UNITS/ML 25,000 UNITS/250 ML BAG 13 UNITS IV CONT (02:49)
[2020-03-03 04:29] LABS: Alveolar/Arterial O2 Gradient 122.9 mmHg; Base Excess ABG 5.3 mEq/l (+/-2.0); Carboxyhemoglobin 0.3 % THb (0-2.0); Fractional Inspired Oxygen 35 %; HCO3 ABG 27.5 mEq/l (22.0-26.0); Methemoglobin ABG 0.4 %THb (0-1.5); Oxygen Content ABG 13.7 %vol (16.0-22.0); Oxygen Saturation ABG 97.8 % (95.0-100.0); Oxyhemoglobin 95.9 % THb (90.0-100.0); PCO2 ABG 31.6 mmHg (35.0-45.0); PO2 ABG 89.9 mmHg (80.0-100.0); PO2 FiO2 Ratio Arterial Blood 2.57 %; Reduced Hemoglobin 3.4 %THb (0-5.0); Total Hemoglobin 10.1 g/dL (12.0-18.0)
[2020-03-03 04:31] LABS: Device VENTILATOR; Modified Allen's Test Pass; Site Drawn LEFT RADIAL; pH ABG 7.558 (7.350-7.450)
[2020-03-03 04:32] LABS: Arterial Blood Gas PEEP 10 cmH2O; Arterial Blood Gas Vent Mode ASV
[2020-03-03] MEDS: METOCLOPRAMIDE HCL INJ 10 MG/2 ML VIAL IV PUSH (05:30)
[2020-03-03 06:01] LABS: Basophils Percent Auto 0.2 % (0.2-1.2); Eosinophils Absolute Auto 0.2 K/mm3 (0-0.3); Eosinophils Percent Auto 1.6 % (0-4.4); Hematocrit 27.1 % (37.0-47.0); Hemoglobin 8.1 g/dL (12.0-15.0); Immature Granulocyte Absolute 0.13 K/mm3 (0.00-0.031); Immature Granulocyte Percent A 1.3 % (0-0.5); Lymphocytes Absolute Auto 1.37 K/mm3 (0.9-3.2); Lymphocytes Percent Auto 13.9 % (18.3-44.2); Mean Corpuscular HGB Conc 29.9 g/dl (32-36); Mean Corpuscular Volume 93.8 fl (80-100); Mean Platelet Volume 10.2 fl (7.4-10.4); Monocytes Absolute Auto 0.8 K/mm3 (0.1-0.6); Monocytes Percent Auto 7.6 % (2.6-8.5); Neutrophils Absolute Auto 7.5 K/mm3 (1.3-6.7); Neutrophils Percent Auto 75.4 % (45.5-73.1); Platelet Count Result 323 k/mm3 (150-375); Red Blood Count 2.89 M/mm3 (4.2-5.4); Red Cell Distribution Width 16.7 % (11.5-14.5); White Blood Count 9.9 K/mm3 (4.5-10.0)
[2020-03-03 06:02] LABS: INR 1.4; Prothrombin Time 16.6 Seconds (11.1-14.7)
[2020-03-03 06:12] LABS: Lactic Acid 1.1 mmol/L (0.7-2.1)
[2020-03-03 06:20] LABS: Blood Urea Nitrogen 11 mg/dL (7-17); Calcium 8.3 mg/dL (8.4-10.2); Carbon Dioxide 30 mmol/L (22-30); Chloride 99 mmol/L (98-107); Estimated CRCL calculation 62 ml/min; Estimated Glomerular Filt Rate 55; Glucose 122 mg/dL (65-105); Potassium 3.9 mmol/L (3.4-5.0); Sodium 135 mmol/L (137-145); Triglycerides 158 mg/dL (<150)
[2020-03-03 06:36] LABS: Anisocytosis 1+ (NORMAL); CRP 12.6 mg/dL (<1.0); Hypochromasia 1+ (NORMAL); Platelet Estimate Adequate (Adequate)
[2020-03-03 06:45] LABS: Partial Thromboplastin Time 160.6 SECONDS (22.3-36.8)
[2020-03-03 07:32] LABS: Partial Thromboplastin Time 59.1 SECONDS (22.3-36.8)
--- NOTE | 2020-03-03 08:15 | WPDGIPROGNO ---
Progress Note: A&P Additional Plan Patient remains sedated on the ventilator. Unable to give additional history. Physical exam reveals abdomen be obese. Abdomen much softer. Tolerating tube feedings at a low rate. Bowel movements noted. Impression 1. adynamic ileus. Appears to have improved. Will increase tube feeding rate. To40cc/hour today. Ultimately 60cc/hour advised. Dose of Reglan will be diminished. Subjective Date/time seen: 03/03/20 08:15 Objective Data Vital Signs Vital Signs: Vital Signs - 24 hr 03/02/20 08:43 03/02/20 09:22 03/02/20 10:00 Temperature Pulse Rate 64 77 90 Respiratory Rate 13 Blood Pressure 144/79 H Pulse Oximetry 100 100 03/02/20 10:56 03/02/20 12:00 03/02/20 12:33 Temperature 36.6 C Pulse Rate 104 H 126 H 130 H Respiratory Rate 28 H Blood Pressure 140/86 Pulse Oximetry 100 98 03/02/20 13:17 03/02/20 13:18 03/02/20 14:32 Temperature Pulse Rate 100 111 H 106 H Respiratory Rate 29 H Blood Pressure 130/95 H Pulse Oximetry 97 99 03/02/20 16:00 03/02/20 17:28 03/02/20 18:00 Temperature 36.9 C Pulse Rate 114 H 112 H 75 Respiratory Rate 29 H 15 Blood Pressure 127/76 115/69 Pulse Oximetry 98 100 100 03/02/20 19:34 03/02/20 20:00 03/02/20 20:57 Temperature Pulse Rate 72 79 86 Respiratory Rate Blood Pressure Pulse Oximetry 100 03/02/20 21:10 03/02/20 22:00 03/02/20 22:39 Temperature 37.3 C Pulse Rate 78 75 72 Respiratory Rate 13 14 Blood Pressure 106/70 103/55 L Pulse Oximetry 98 96 97 03/02/20 23:50 03/03/20 00:00 03/03/20 01:00 Temperature 37.0 C Pulse Rate 65 66 78 Respiratory Rate 14 Blood Pressure 99/65 L Pulse Oximetry 98 98 03/03/20 02:00 03/03/20 04:00 03/03/20 04:15 Temperature 37.0 C Pulse Rate 75 63 65 Respiratory Rate 13 12 Blood Pressure 108/64 100/71 Pulse Oximetry 99 100 03/03/20 04:37 03/03/20 06:00 Temperature Pulse Rate 72 63 Respiratory Rate 13 Blood Pressure 122/68 Pulse Oximetry 98 100 Intake/Output Intake/Output: Intake & Output 02/29/20 03/01/20 03/02/20 03/03/20 23:59 23:59 23:59 23:59 Intake Total 1486 1737 2145.7 666.3 Output Total 1125 1125 850 325 Balance 436 158 8566.7 341.3 Meds/Results Medications: Active Medications Generic Name Dose Route Start Last Admin Trade Name Freq PRN Reason Stop Dose Admin Albuterol/Ipratropium 1 puff 02/26/20 20:00 Combivent Respimat INHALATION QIDRT PRN Shortness Of Breath Dextrose 12.5 gm 02/26/20 17:22 Dextrose 50% Syringe IV PUSH PRN PRN Hypoglycemia Protocol Furosemide 20 mg 02/26/20 22:45 02/26/20 23:37 Lasix Inj IV PUSH 20 mg BID DEWAYNE Administration Glucagon 1 mg 02/26/20 17:22 Glucagon For Inj IM PRN PRN Hypoglycemia Protocol Glucose 15 gm 02/26/20 17:22 Glutose 15 PO PRN PRN Hypoglycemia Protocol Heparin Sodium (Porcine) 6,500 units 02/26/20 22:19 Heparin Sodium IV PUSH PRN PRN aPTT less than 55 seconds Heparin Sodium (Porcine) 3,000 units 02/26/20 22:19 02/29/20 02:10 Heparin Sodium IV PUSH 3,000 units PRN PRN Administration aPTT 55 - 70 seconds Hydralazine HCl 10 mg 02/26/20 21:52 Apresoline Hcl Inj IV PUSH Q8H PRN Blood Pressure - High Ceftriaxone Sodium/Dextrose 1 gm in 50 mls @ 100 mls/hr 02/27/20 18:00 03/02/20 17:42 Rocephin 1 Gm/D5w 50 Ml IVPB Infused QPM DEWAYNE Infusion Dextrose 1,000 mls @ 100 mls/hr 02/26/20 17:22 Dextrose 5% 1,000 Ml IVPB PRN PRN Hypoglycemia Protocol Azithromycin 500 mg in 250 mls @ 250 mls/hr 02/27/20 10:00 03/02/20 10:18 Zithromax IVPB Infused DAILY DEWAYNE Infusion Propofol 100 mls @ 11.421 mls/hr 02/26/20 17:55 03/03/20 06:51 Diprivan IV CONT 15 mcg/kg/min .Q8H46M DEWAYNE 11.4 mls/hr Administration Protocol 15 MCG/KG/MIN Heparin Sodium/Dextrose 2
[2020-03-03] MEDS: PANTOPRAZOLE SODIUM IV 40 MG VIAL IV PUSH (08:31)
[2020-03-03] MEDS: METOPROLOL TARTRATE 12.5 MG TABLET PO (08:31)
[2020-03-03] MEDS: TOLNAFTATE 1% POWDER 45 GM BTL 1 APPLIC TOPICAL ×2 (08:32→20:46)
--- NOTE | 2020-03-03 08:53 | PM.IMPN ---
Progress Note: A&P Assessment and Plan (1) Acute respiratory failure: Qualifiers: Respiratory failure complication: hypercapnia Qualified Code(s): J96.02 - Acute respiratory failure with hypercapnia Code(s): J96.00 - Acute respiratory failure, unspecified whether with hypoxia or hypercapnia Status: Acute Assessment and Plan: Probably result of bilateral airspace disease, bacteremia, morbid obesity, dilated bowels and bacterial versus viral pneumonia. Remains on ventilator with management per skip tender. Discussed with skip tender. Had breathing trial On 03/02/2020 but not ready for extubation. COVID-19 testing completed and negative. Chest x-ray today with persistent airspace opacities in mid and lower lung zones. Continue IV antibiotics as noted below. Continue Combivent p.r.n.. Continue to monitor. (2) Sepsis: Qualifiers: Acute respiratory failure type: with hypercapnia Sepsis acute organ dysfunction status: with acute organ dysfunction Sepsis type: sepsis due to unspecified organism Severe sepsis acute organ dysfunction type: acute respiratory failure Severe sepsis shock status: without septic shock Qualified Code(s): A41.9 - Sepsis, unspecified organism; R65.20 - Severe sepsis without septic shock; J96.02 - Acute respiratory failure with hypercapnia Code(s): A41.9 - Sepsis, unspecified organism Status: Acute Assessment and Plan: Criteria met on admission. Blood cultures x 2 now growing MERCEDES. Discussed with skip tender. Limited echocardiogram ordered with no obvious vegetation seen and EF 60-65%. Urine culture negative. COVID testing negative as noted. Continue IV vancomycin, azithromycin and ceftriaxone. Repeat blood cultures initiated on 03/01/2020 and remain negative at this time. WBC is normal at 9.9 today. Will continue to follow. (3) Anemia: Qualifiers: Anemia type: unspecified type Qualified Code(s): D64.9 - Anemia, unspecified Code(s): D64.9 - Anemia, unspecified Status: Acute Assessment and Plan: Hemoglobin decreased to 6.9 on 03/01/2020 with 1 unit PRBC transfused. Hgb stable and unchanged at 8.1 again today. Will continue to monitor. Transfuse as needed. (4) Atrial fibrillation: Qualifiers: Atrial fibrillation type: unspecified chronic Qualified Code(s): I48.20 - Chronic atrial fibrillation, unspecified Code(s): I48.91 - Unspecified atrial fibrillation Status: Chronic Assessment and Plan: Telemetry reviewed on 03/03/2020 with atrial fibrillation with heart rate now stable. Received 1 dose of metoprolol on 03/02/2020. Oral metoprolol started today. Will continue to monitor. Remains on heparin drip for anticoagulation. (5) Hypertension: Qualifiers: Hypertension type: essential hypertension Qualified Code(s): I10 - Essential (primary) hypertension Code(s): I10 - Essential (primary) hypertension Status: Chronic Assessment and Plan: Blood pressure reviewed on 03/03/2020 and remains stable. Oral metoprolol resumed as noted above. Diltiazem remains on hold. IV hydralazine remains available if needed. Will continue to monitor. (6) Congestive heart failure: Qualifiers: Heart failure chronicity: acute on chronic Heart failure type: diastolic Qualified Code(s): I50.33 - Acute on chronic diastolic (congestive) heart failure Code(s): I50.9 - Heart failure, unspecified Status: Chronic Assessment and Plan: CT of the chest on 02/19/2020 reviewed showing atelecatasis and small right pleural effusion. Echocardiogram on 02/19/2020 with EF 50-55%. New limited echocardiogram with EF 60-65% as noted above. Will continue IV Lasix. Will continue to monitor. (7) Ileus: Code(s): K56.7 - Ileus, unspecified Status: Resolved Assessment and Plan: Previous imaging consistent with ileus. Patient now on IV Reg
[2020-03-03] MEDS: HEPARIN SODIUM 5,000 UNITS/ML VIAL 3000 UNITS IV PUSH (09:08)
[2020-03-03 11:46] LABS: Glucose Point of Care 98 (65-105)
[2020-03-03] MEDS: METOPROLOL TARTRATE INJ 5 MG/5 ML VIAL IV PUSH (12:06)
--- NOTE | 2020-03-03 13:52 | WPDINTPN ---
Progress Note: A&P Assessment and Plan (1) Acute respiratory failure: Qualifiers: Respiratory failure complication: hypercapnia Qualified Code(s): J96.02 - Acute respiratory failure with hypercapnia Code(s): J96.00 - Acute respiratory failure, unspecified whether with hypoxia or hypercapnia Status: Acute Assessment and Plan: patient with acute hypercapnic respiratory failure likely related to bilateral airspace disease, bacteremia, morbid obesity, dilated bowels, suspect bacterial versus viral pneumonia INFUENZA A & B Negative 02/26/2020 - patient was intubated on 02/26/2020 - patient on ASV mode of ventilation, tolerated the SBT yesterday but could not extubate due to patient having very high high RSBI, tachypnea, low tidal volume. Likely related to underlying ileus and bowel distension - Chest x-ray and ABGs reviewed - with concerns for COVID-19, TERESA-COV-2 pcr swab was NEGATIVE - continue vancomycin, azithromycin, ceftriaxone - patient on low-dose propofol for sedation, but is awake, follows simple commands and nods to questions (2) Sepsis: Qualifiers: Sepsis type: sepsis due to unspecified organism Sepsis acute organ dysfunction status: with acute organ dysfunction Severe sepsis acute organ dysfunction type: acute respiratory failure Acute respiratory failure type: with hypercapnia Severe sepsis shock status: without septic shock Qualified Code(s): A41.9 - Sepsis, unspecified organism; R65.20 - Severe sepsis without septic shock; J96.02 - Acute respiratory failure with hypercapnia Code(s): A41.9 - Sepsis, unspecified organism Status: Acute Assessment and Plan: RESOLVED: sepsis related to Staph aureus bacteremia on blood cultures 02/26/2020 - continue antibiotics as above - 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 of lower 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 tract - urine culture with no growth - patient maintaining her blood pressures - limited echo to rule out endocarditis (3) Gram-positive cocci bacteremia: Code(s): R78.81 - Bacteremia Status: Acute Assessment and Plan: 02/26/2020 blood cultures growing Staph aureus 2/2 bottles, pansensitive, - repeat blood cultures from 03/01/2020 Are negative x2 so far - limited echo was done on 02/29/2020, no obvious vegetations are seen, EF 60-65% (4) Ileus: Code(s): K56.7 - Ileus, unspecified Status: Acute Assessment and Plan: patient developed ileus with dilated bowel loops, could be related to his severe sepsis, narcotics - NG tube in place, continue Reglan - appreciate GI evaluation recommendation - KUB continues to show ileus - patient tolerating tube feeds, will increase to goal - will maintain normal electrolyte balance, replace potassium (5) Atrial fibrillation: Qualifiers: Atrial fibrillation type: unspecified chronic Qualified Code(s): I48.20 - Chronic atrial fibrillation, unspecified Code(s): I48.91 - Unspecified atrial fibrillation Status: Chronic Assessment and Plan: patient with history of AFib, on heparin infusion at this time - rate controlled, increase metoprolol - will continue to monitor for now (6) Cellulitis: Qualifiers: Site of cellulitis: extremity Site of cellulitis of extremity: lower extremity Laterality: right Qualified Code(s): L03.115 - Cellulitis of right lower limb Code(s): L03.90 - Cellulitis, unspecified Status: Acute Assessment and Plan: Patient had a right antecubital fossa infection with purulent draianage on 02/12/20. wound culture showing MERCEDES. completed a course of Bactrim on 02/24/20. Condition clinically has resolved. Continue Eucerin and dressing changes to the right lower extremtiy. (7) DVT (deep venous thrombosis): Qualifiers: DVT location: lower extremity Affected thrombotic vein of extremity: unspecified vein of extremity Chronicity: chronic Laterality
[2020-03-03 15:38] LABS: Partial Thromboplastin Time 92.3 SECONDS (22.3-36.8)
[2020-03-03] MEDS: METOCLOPRAMIDE HCL INJ 10 MG/2 ML VIAL 5 MG IV PUSH ×2 (17:38→23:56)
[2020-03-03 18:24] LABS: Glucose Point of Care 105 (65-105)
[2020-03-03] MEDS: HEPARIN SOD/D5W 100 UNITS/ML 25,000 UNITS/250 ML BAG 15 UNITS IV CONT (20:38)
[2020-03-03] MEDS: METOPROLOL TARTRATE 25 MG TABLET PO (21:07)
[2020-03-04] VITALS (23 sets, daily range): BP systolic 108–147; BP diastolic 51–97; PULSE 69–146; RESP 12–29; TEMP 36.7–37.1; O2SAT 97–100
[2020-03-04 00:10] LABS: Glucose Point of Care 97 (65-105)
[2020-03-04 04:56] LABS: Alveolar/Arterial O2 Gradient 107.9 mmHg; Base Excess ABG 4.4 mEq/l (+/-2.0); Fractional Inspired Oxygen 35 %; HCO3 ABG 27.1 mEq/l (22.0-26.0); Oxygen Content ABG 15.3 %vol (16.0-22.0); Oxygen Saturation ABG 98.2 % (95.0-100.0); Oxyhemoglobin 96.5 % THb (90.0-100.0); PO2 ABG 102.1 mmHg (80.0-100.0); PO2 FiO2 Ratio Arterial Blood 2.92 %; Total Hemoglobin 11.2 g/dL (12.0-18.0)
[2020-03-04 04:59] LABS: Device VENTILATOR; Modified Allen's Test Pass; Site Drawn LEFT RADIAL
[2020-03-04 05:00] LABS: Arterial Blood Gas PEEP 5 cmH2O; Arterial Blood Gas Vent Mode ASV
[2020-03-04 05:32] LABS: Lactate Dehydrogenase 401 U/L (313-618)
[2020-03-04 05:35] LABS: Partial Thromboplastin Time 80.7 SECONDS (22.3-36.8)
[2020-03-04 05:36] LABS: D Dimer 2.88 ug/mL (<0.48)
[2020-03-04 06:17] LABS: Glucose Point of Care 83 (65-105)
[2020-03-04] MEDS: METOCLOPRAMIDE HCL INJ 10 MG/2 ML VIAL 5 MG IV PUSH ×3 (06:25→18:10)
[2020-03-04] MEDS: TOLNAFTATE 1% POWDER 45 GM BTL 1 APPLIC TOPICAL ×2 (09:39→19:51)
[2020-03-04] MEDS: METOPROLOL TARTRATE 25 MG TABLET PO (09:40)
[2020-03-04] MEDS: PANTOPRAZOLE SODIUM IV 40 MG VIAL IV PUSH (09:40)
--- NOTE | 2020-03-04 10:53 | PCDIET ---
ICU Rounding Note: Patient has been tolerating Vital 1.2 at 40mL/hr goal rate which is currently on hold for SBT. Last recorded weight is 130.3kg which is increased from last review. +I/O noted. Bowel Motility: +BM x 2 today. Labs Reviewed: TG (158), Ferritin (412) Meds Noted: Combivent, Zithromax, Rocephin, Lasix, Novolog, Reglan, Protonix, Vancomycin Additional Notes: Propofol now off. Bottom with skin tear, per RN. Right lower leg with stasis ulcer and maceration to abdomen/breasts documented. Recommend resuming tube feedings if unable to extubate. Following daily in ICU rounds. Assessing/reassessing every Wednesday/Wednesday.
[2020-03-04] MEDS: HEPARIN SOD/D5W 100 UNITS/ML 25,000 UNITS/250 ML BAG 15 UNITS IV CONT (11:01)
[2020-03-04 11:13] LABS: Glucose Point of Care 103 (65-105)
--- NOTE | 2020-03-04 11:23 | PM.IMPN ---
Progress Note: A&P Assessment and Plan (1) Acute respiratory failure: Qualifiers: Respiratory failure complication: hypercapnia Qualified Code(s): J96.02 - Acute respiratory failure with hypercapnia Code(s): J96.00 - Acute respiratory failure, unspecified whether with hypoxia or hypercapnia Status: Acute Assessment and Plan: Probably result of bilateral airspace disease, bacteremia, morbid obesity, dilated bowels and bacterial versus viral pneumonia. Remains on ventilator with management per designer. Discussed with designer. In process of breathing trial with hopeful extubation today. COVID-19 testing completed and negative. Chest x-ray on 03/03/2020 with persistent airspace opacities in mid and lower lung zones. Continue IV antibiotics as noted below. Continue Combivent p.r.n.. Continue to monitor. (2) Sepsis: Qualifiers: Acute respiratory failure type: with hypercapnia Sepsis acute organ dysfunction status: with acute organ dysfunction Sepsis type: sepsis due to unspecified organism Severe sepsis acute organ dysfunction type: acute respiratory failure Severe sepsis shock status: without septic shock Qualified Code(s): A41.9 - Sepsis, unspecified organism; R65.20 - Severe sepsis without septic shock; J96.02 - Acute respiratory failure with hypercapnia Code(s): A41.9 - Sepsis, unspecified organism Status: Acute Assessment and Plan: Criteria met on admission. Initial blood cultures x 2 with MERCEDES. Limited echocardiogram ordered with no obvious vegetation seen and EF 60-65%. Repeat blood cultures started on 03/01/2020 remain negative thus far. Urine culture negative. COVID testing negative as noted. Continue IV vancomycin, azithromycin and ceftriaxone. WBC remains normal. Will monitor. (3) Anemia: Qualifiers: Anemia type: unspecified type Qualified Code(s): D64.9 - Anemia, unspecified Code(s): D64.9 - Anemia, unspecified Status: Acute Assessment and Plan: Hemoglobin decreased to 6.9 on 03/01/2020 with 1 unit PRBC transfused. Hgb stable and unchanged at 8.1 on 03/03/2020. Will continue to monitor. Transfuse as needed. (4) Atrial fibrillation: Qualifiers: Atrial fibrillation type: unspecified chronic Qualified Code(s): I48.20 - Chronic atrial fibrillation, unspecified Code(s): I48.91 - Unspecified atrial fibrillation Status: Chronic Assessment and Plan: Telemetry reviewed on 03/04/2020 with atrial fibrillation with heart rate stable. Received 1 dose of metoprolol on 03/02/2020. Continue oral metoprolol. Will continue to monitor. Remains on heparin drip for anticoagulation. (5) Hypertension: Qualifiers: Hypertension type: essential hypertension Qualified Code(s): I10 - Essential (primary) hypertension Code(s): I10 - Essential (primary) hypertension Status: Chronic Assessment and Plan: Blood pressure reviewed on 03/04/2020 and stable. On oral metoprolol as noted above. Diltiazem remains on hold. IV hydralazine remains available if needed. Will continue to monitor. (6) Congestive heart failure: Qualifiers: Heart failure chronicity: acute on chronic Heart failure type: diastolic Qualified Code(s): I50.33 - Acute on chronic diastolic (congestive) heart failure Code(s): I50.9 - Heart failure, unspecified Status: Chronic Assessment and Plan: CT of the chest on 02/19/2020 reviewed showing atelecatasis and small right pleural effusion. Echocardiogram on 02/19/2020 with EF 50-55%. New limited echocardiogram with EF 60-65% as noted above. Will continue IV Lasix. Will continue to monitor. (7) Ileus: Code(s): K56.7 - Ileus, unspecified Status: Resolved Assessment and Plan: Previous imaging consistent with ileus. Patient now on IV Reglan with regular bowel movements. Will continue to monitor. Tolerating t
[2020-03-04 11:57] LABS: Alveolar/Arterial O2 Gradient 87.8 mmHg; Base Excess ABG 2.1 mEq/l (+/-2.0); Fractional Inspired Oxygen 35 %; Oxygen Content ABG 12.6 %vol (16.0-22.0); Oxygen Saturation ABG 98.1 % (95.0-100.0); Oxyhemoglobin 96.6 % THb (90.0-100.0); PCO2 ABG 43.1 mmHg (35.0-45.0); PO2 ABG 111.6 mmHg (80.0-100.0); PO2 FiO2 Ratio Arterial Blood 3.19 %; Total Hemoglobin 9.1 g/dL (12.0-18.0); pH ABG 7.414 (7.350-7.450)
[2020-03-04 11:59] LABS: Device VENTILATOR; Site Drawn LEFT BRACHIAL
[2020-03-04 12:00] LABS: Arterial Blood Gas PEEP 5 cmH2O; Arterial Blood Gas Vent Mode SPONTANEOUS
[2020-03-04 12:01] LABS: Arterial Blood Gas Pressure Support 10 cmH2O
--- NOTE | 2020-03-04 12:04 | WPDINTPN ---
Progress Note: A&P Assessment and Plan (1) Acute respiratory failure: Qualifiers: Respiratory failure complication: hypercapnia Qualified Code(s): J96.02 - Acute respiratory failure with hypercapnia Code(s): J96.00 - Acute respiratory failure, unspecified whether with hypoxia or hypercapnia Status: Acute Assessment and Plan: patient with acute hypercapnic respiratory failure likely related to bilateral airspace disease, bacteremia, morbid obesity, dilated bowels, suspect bacterial versus viral pneumonia INFUENZA A & B Negative 02/26/2020 - patient was intubated on 02/26/2020 - Chest x-ray and ABGs reviewed - TERESA-COV-2 pcr swab was NEGATIVE - continue vancomycin, azithromycin, ceftriaxone - whilst hold propofol, place patient on SBT and evaluate for extubation (2) Sepsis: Qualifiers: Acute respiratory failure type: with hypercapnia Sepsis acute organ dysfunction status: with acute organ dysfunction Sepsis type: sepsis due to unspecified organism Severe sepsis acute organ dysfunction type: acute respiratory failure Severe sepsis shock status: without septic shock Qualified Code(s): A41.9 - Sepsis, unspecified organism; R65.20 - Severe sepsis without septic shock; J96.02 - Acute respiratory failure with hypercapnia Code(s): A41.9 - Sepsis, unspecified organism Status: Acute Assessment and Plan: RESOLVED: sepsis related to Staph aureus bacteremia on blood cultures 02/26/2020. 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 (3) Gram-positive cocci bacteremia: Code(s): R78.81 - Bacteremia Status: Acute Assessment and Plan: 02/26/2020 blood cultures growing Staph aureus 2/2 bottles, pansensitive, - repeat blood cultures from 03/01/2020 Are negative x2 so far - limited echo was done on 02/29/2020, no obvious vegetations are seen, EF 60-65% (4) Ileus: Code(s): K56.7 - Ileus, unspecified Status: Resolved Assessment and Plan: patient developed ileus with dilated bowel loops, could be related to his severe sepsis, narcotics - NG tube in place, continue Reglan - appreciate GI evaluation recommendation - KUB continues to show ileus - patient tolerating tube feeds, will increase to goal - will maintain normal electrolyte balance, replace potassium (5) Atrial fibrillation: Qualifiers: Atrial fibrillation type: unspecified chronic Qualified Code(s): I48.20 - Chronic atrial fibrillation, unspecified Code(s): I48.91 - Unspecified atrial fibrillation Status: Chronic Assessment and Plan: patient with history of AFib, on heparin infusion at this time - rate controlled, Continue metoprolol - will continue to monitor for now (6) Cellulitis: Qualifiers: Laterality: right Site of cellulitis: extremity Site of cellulitis of extremity: lower extremity Qualified Code(s): L03.115 - Cellulitis of right lower limb Code(s): L03.90 - Cellulitis, unspecified Status: Acute Assessment and Plan: Patient had a right antecubital fossa infection with purulent draianage on 02/12/20. wound culture showing MERCEDES. completed a course of Bactrim on 02/24/20. Condition clinically has resolved. Continue Eucerin and dressing changes to the right lower extremtiy. (7) DVT (deep venous thrombosis): Qualifiers: Affected thrombotic vein of extremity: unspecified vein of extremity Chronicity: chronic DVT location: lower extremity Laterality: unspecified laterality Qualified Code(s): I82.509 - Chronic embolism and thrombosis of unspecified deep veins of unspecified lower extremity Code(s): I82.409 - Acute embolism and thrombosis of unspecified deep veins of unspecified lower extremity
[2020-03-04] MEDS: LIDOCAINE HCL 1% PF INJ 5 ML VIAL INFILTRATE (14:35)
[2020-03-04] MEDS: ALBUTEROL SULFATE NEB 2.5 MG/0.5 ML INH INHALATION ×2 (15:29→20:30)
[2020-03-04] MEDS: IPRATROPIUM BR 0.02% INH SOLN 0.5 MG/2.5 ML VIAL INHALATION ×2 (15:29→20:30)
[2020-03-04] MEDS: NEOMYCIN/POLYMYXIN/BACITRACIN OINTMENT PACKET 1 PACKET (18:08)
[2020-03-04 18:30] LABS: Glucose Point of Care 115 (65-105)
[2020-03-04] MEDS: METOPROLOL TARTRATE INJ 5 MG/5 ML VIAL IV PUSH (18:52)
[2020-03-04] MEDS: METOPROLOL TARTRATE 50 MG TAB PO (19:51)
[2020-03-05] VITALS (29 sets, daily range): BP systolic 111–165; BP diastolic 77–113; PULSE 69–137; RESP 10–40; TEMP 36.2–36.9; O2SAT 94–100
[2020-03-05 00:06] LABS: Glucose Point of Care 115 (65-105)
[2020-03-05] MEDS: METOCLOPRAMIDE HCL INJ 10 MG/2 ML VIAL 5 MG IV PUSH ×4 (00:11→17:38)
[2020-03-05] MEDS: ALBUTEROL SULFATE NEB 2.5 MG/0.5 ML INH INHALATION ×4 (01:21→19:40)
[2020-03-05] MEDS: IPRATROPIUM BR 0.02% INH SOLN 0.5 MG/2.5 ML VIAL INHALATION ×4 (01:21→19:40)
[2020-03-05] MEDS: HEPARIN SOD/D5W 100 UNITS/ML 25,000 UNITS/250 ML BAG 15 UNITS IV CONT ×2 (03:11→17:47)
[2020-03-05 05:35] LABS: Basophils Percent Auto 0.3 % (0.2-1.2); Eosinophils Absolute Auto 0.1 K/mm3 (0-0.3); Eosinophils Percent Auto 0.6 % (0-4.4); Hematocrit 28.6 % (37.0-47.0); Hemoglobin 8.2 g/dL (12.0-15.0); Immature Granulocyte Absolute 0.11 K/mm3 (0.00-0.031); Immature Granulocyte Percent A 0.8 % (0-0.5); Lymphocytes Absolute Auto 1.11 K/mm3 (0.9-3.2); Lymphocytes Percent Auto 7.9 % (18.3-44.2); Mean Corpuscular HGB Conc 28.7 g/dl (32-36); Mean Corpuscular Volume 97.6 fl (80-100); Mean Platelet Volume 9.9 fl (7.4-10.4); Monocytes Absolute Auto 1.3 K/mm3 (0.1-0.6); Monocytes Percent Auto 9.2 % (2.6-8.5); Neutrophils Absolute Auto 11.4 K/mm3 (1.3-6.7); Neutrophils Percent Auto 81.2 % (45.5-73.1); Platelet Count Result 330 k/mm3 (150-375); Red Blood Count 2.93 M/mm3 (4.2-5.4); Red Cell Distribution Width 16.9 % (11.5-14.5); White Blood Count 14.1 K/mm3 (4.5-10.0)
[2020-03-05 05:39] LABS: Partial Thromboplastin Time 80.7 SECONDS (22.3-36.8)
[2020-03-05 05:53] LABS: Alanine Aminotransferase 15 U/L (4-35); Alkaline Phosphatase 94 U/L (38-126); Aspartate Amino Transferase 19 U/L (14-36); Bilirubin,Total 0.3 mg/dL (0.2-1.3); Blood Urea Nitrogen 9 mg/dL (7-17); Calcium 8.5 mg/dL (8.4-10.2); Carbon Dioxide 30 mmol/L (22-30); Chloride 103 mmol/L (98-107); Estimated CRCL calculation 87 ml/min; Estimated Glomerular Filt Rate > 60; Glucose 111 mg/dL (65-105); Phosphorus 6.1 mg/dL (2.5-4.5); Sodium 136 mmol/L (137-145)
[2020-03-05 05:55] LABS: CRP 20.3 mg/dL (<1.0)
[2020-03-05 06:25] LABS: Platelet Estimate Adequate (Adequate)
[2020-03-05 06:26] LABS: Hypochromasia 2+ (NORMAL); Polychromasia 1+ (NORMAL); Stomatocytes 2+ (NORMAL)
[2020-03-05] MEDS: FUROSEMIDE INJ 40 MG/4 ML VIAL 60 MG IV PUSH (08:42)
[2020-03-05] MEDS: TOLNAFTATE 1% POWDER 45 GM BTL 1 APPLIC TOPICAL ×2 (08:52→21:34)
[2020-03-05] MEDS: METOPROLOL TARTRATE 25 MG TABLET 75 MG PO ×2 (08:52→21:34)
[2020-03-05] MEDS: PANTOPRAZOLE SODIUM IV 40 MG VIAL IV PUSH (08:52)
--- NOTE | 2020-03-05 09:51 | PCSTNOTE ---
Attempted to see pt for swallow re assessment; according to SHO Mckeon, the swallow reassessment has been cancelled for today due to pt medical decline and having to go on bipap. RN was told to re order when pt is appropriate again.
--- NOTE | 2020-03-05 09:53 | P.PNIM_ITS ---
Progress Note: A&P Assessment and Plan (1) Bacteremia due to methicillin susceptible Staphylococcus aureus (MSSA): Code(s): R78.81 - Bacteremia; B95.61 - Methicillin susceptible Staphylococcus aureus infection as the cause of diseases classified elsewhere Status: Acute Assessment and Plan: * Likely from right antecubital fossa wound with cellulitis * Day 6 vancomycin (2) Acute respiratory failure: Qualifiers: Respiratory failure complication: hypercapnia Qualified Code(s): J96.02 - Acute respiratory failure with hypercapnia Code(s): J96.00 - Acute respiratory failure, unspecified whether with hypoxia or hypercapnia Status: Acute Assessment and Plan: * Probably result of bilateral airspace disease, bacteremia, morbid obesity, dilated bowels and bacterial versus viral pneumonia. * Remained on ventilator 02/25-03/04 * COVID-19 testing completed and negative. * Chest x-ray on 03/05/20 with pleural effusions, infiltates, slightly better * Furosemide 40mg IV bid * Continue IV antibiotics (3) Sepsis: Qualifiers: Sepsis type: sepsis due to unspecified organism Sepsis acute organ dysfunction status: with acute organ dysfunction Severe sepsis acute organ dysfunction type: acute respiratory failure Acute respiratory failure type: with hypercapnia Severe sepsis shock status: without septic shock Qualified Code(s): A41.9 - Sepsis, unspecified organism; R65.20 - Severe sepsis without septic shock; J96.02 - Acute respiratory failure with hypercapnia Code(s): A41.9 - Sepsis, unspecified organism Status: Acute Assessment and Plan: * Criteria met on admission. Initial blood cultures x 2 with MERCEEDS. * Limited echocardiogram ordered with no obvious vegetation seen and EF 60-65%. * Repeat blood cultures started on 03/01/2020 remain negative thus far. Urine culture negative. * COVID testing negative as noted. * Continue IV vancomycin (4) Anemia: Qualifiers: Anemia type: unspecified type Qualified Code(s): D64.9 - Anemia, unspecified Code(s): D64.9 - Anemia, unspecified Status: Acute Assessment and Plan: * Hemoglobin decreased to 6.9 on 03/01/2020 with 1 unit PRBC transfused. * Hgb stable 03/05 at 8.2 * Continue to monitor and transfuse as needed. (5) Atrial fibrillation: Qualifiers: Atrial fibrillation type: unspecified chronic Qualified Code(s): I48.20 - Chronic atrial fibrillation, unspecified Code(s): I48.91 - Unspecified atrial fibrillation Status: Chronic Assessment and Plan: * Telemetry with atrial fibrillation and heart rate stable. * Continue oral metoprolol. * Continue IV heparin (6) Hypertension: Qualifiers: Hypertension type: essential hypertension Qualified Code(s): I10 - Essential (primary) hypertension Code(s): I10 - Essential (primary) hypertension Status: Chronic Assessment and Plan: * Blood pressure stable on oral metoprolol * IV hydralazine PRN (7) Congestive heart failure: Qualifiers: Heart failure type: diastolic Heart failure chronicity: acute on chronic Qualified Code(s): I50.33 - Acute on chronic diastolic (congestive) heart failure Code(s): I50.9 - Heart failure, unspecified Status: Chronic Assessment and Plan: * CT of the chest on 02/19/2020 reviewed showing atelecatasis and small right pleural effusion. * Echocardiogram on 02/19/2020 with EF 50-55%. * New limited echocardiogram with EF 60-65% as noted above. * Continue
--- NOTE | 2020-03-05 09:53 | PM.IMPN ---
Progress Note: A&P Assessment and Plan (1) Bacteremia due to methicillin susceptible Staphylococcus aureus (MSSA): Code(s): R78.81 - Bacteremia; B95.61 - Methicillin susceptible Staphylococcus aureus infection as the cause of diseases classified elsewhere Status: Acute Assessment and Plan: Likely from right antecubital fossa wound with cellulitis Day 6 vancomycin (2) Acute respiratory failure: Qualifiers: Respiratory failure complication: hypercapnia Qualified Code(s): J96.02 - Acute respiratory failure with hypercapnia Code(s): J96.00 - Acute respiratory failure, unspecified whether with hypoxia or hypercapnia Status: Acute Assessment and Plan: Probably result of bilateral airspace disease, bacteremia, morbid obesity, dilated bowels and bacterial versus viral pneumonia. Remained on ventilator 02/25-03/04 COVID-19 testing completed and negative. Chest x-ray on 03/05/20 with pleural effusions, infiltates, slightly better Furosemide 40mg IV bid Continue IV antibiotics (3) Sepsis: Qualifiers: Sepsis type: sepsis due to unspecified organism Sepsis acute organ dysfunction status: with acute organ dysfunction Severe sepsis acute organ dysfunction type: acute respiratory failure Acute respiratory failure type: with hypercapnia Severe sepsis shock status: without septic shock Qualified Code(s): A41.9 - Sepsis, unspecified organism; R65.20 - Severe sepsis without septic shock; J96.02 - Acute respiratory failure with hypercapnia Code(s): A41.9 - Sepsis, unspecified organism Status: Acute Assessment and Plan: Criteria met on admission. Initial blood cultures x 2 with MERCEDES. Limited echocardiogram ordered with no obvious vegetation seen and EF 60-65%. Repeat blood cultures started on 03/01/2020 remain negative thus far. Urine culture negative. COVID testing negative as noted. Continue IV vancomycin (4) Anemia: Qualifiers: Anemia type: unspecified type Qualified Code(s): D64.9 - Anemia, unspecified Code(s): D64.9 - Anemia, unspecified Status: Acute Assessment and Plan: Hemoglobin decreased to 6.9 on 03/01/2020 with 1 unit PRBC transfused. Hgb stable 03/05 at 8.2 Continue to monitor and transfuse as needed. (5) Atrial fibrillation: Qualifiers: Atrial fibrillation type: unspecified chronic Qualified Code(s): I48.20 - Chronic atrial fibrillation, unspecified Code(s): I48.91 - Unspecified atrial fibrillation Status: Chronic Assessment and Plan: Telemetry with atrial fibrillation and heart rate stable. Continue oral metoprolol. Continue IV heparin (6) Hypertension: Qualifiers: Hypertension type: essential hypertension Qualified Code(s): I10 - Essential (primary) hypertension Code(s): I10 - Essential (primary) hypertension Status: Chronic Assessment and Plan: Blood pressure stable on oral metoprolol IV hydralazine PRN (7) Congestive heart failure: Qualifiers: Heart failure type: diastolic Heart failure chronicity: acute on chronic Qualified Code(s): I50.33 - Acute on chronic diastolic (congestive) heart failure Code(s): I50.9 - Heart failure, unspecified Status: Chronic Assessment and Plan: CT of the chest on 02/19/2020 reviewed showing atelecatasis and small right pleural effusion. Echocardiogram on 02/19/2020 with EF 50-55%. New limited echocardiogram with EF 60-65% as noted above. Continue IV Lasix. (8) Ileus: Code(s): K56.7 - Ileus, unspecified Status: Resolved Assessment and Plan: Previous imaging consistent with ileus Resolved (9) Cellulitis: Qualifiers: Site of cellulitis: extremity Site of cellulitis of extremity: lower extremity Laterality: right Qualified Code(s): L03.115 - Cellulitis of right lower limb Code(s):
--- NOTE | 2020-03-05 10:57 | PCDIET ---
Nutrition Follow-Up Complete: Nutrition Diagnosis: Inadequate oral intake related to oral intubation as evidenced by NPO status. Nutrition Goal: Patient to meet estimated nutritional needs. Goal not met. Patient extubated and was to have CREDIT CONSULTANT evaluation; however, that is now cancelled due to patient needing bipap. Also with new order for KUB. Will recommend nutrition support if unable to safely advance diet in the next few days. Last recorded weight is 131.2 kg which is increased. I/O noted. Bowel Motility: +BM x 3 today Labs Reviewed: Glu (111), Na (136), PO4 (6.1), CRP (20.3) Meds Noted: Albuterol, Rocephin, Novolog, Protonix, Vancomycin, Zithromax, Lasix, Atrovent, Reglan Additional Notes: No change in skin reported. Will continue to monitor with same goal. Nutrition Monitoring and Evaluation: Follow up every 3 days. Follow daily in ICU rounds.
[2020-03-05 12:33] LABS: Glucose Point of Care 118 (65-105)
--- NOTE | 2020-03-05 13:41 | WPDINTPN ---
Progress Note: A&P Assessment and Plan (1) Acute respiratory failure: Qualifiers: Respiratory failure complication: hypercapnia Qualified Code(s): J96.02 - Acute respiratory failure with hypercapnia Code(s): J96.00 - Acute respiratory failure, unspecified whether with hypoxia or hypercapnia Status: Acute Assessment and Plan: patient with acute hypercapnic respiratory failure likely related to bilateral airspace disease, bacteremia, morbid obesity, dilated bowels, suspect bacterial versus viral pneumonia INFUENZA A & B Negative 02/26/2020 - patient was intubated on 02/26/2020. extubated on 03/04/2020 - Chest x-ray and ABGs reviewed, worsening infiltrates on the right side, likely related to pulmonary edema, patient was diuresed and placed on BiPAP. - TERESA-COV-2 pcr swab was NEGATIVE - DC azithromycin and ceftriaxone, continue vancomycin (2) Sepsis: Qualifiers: Sepsis type: sepsis due to unspecified organism Sepsis acute organ dysfunction status: with acute organ dysfunction Severe sepsis acute organ dysfunction type: acute respiratory failure Acute respiratory failure type: with hypercapnia Severe sepsis shock status: without septic shock Qualified Code(s): A41.9 - Sepsis, unspecified organism; R65.20 - Severe sepsis without septic shock; J96.02 - Acute respiratory failure with hypercapnia Code(s): A41.9 - Sepsis, unspecified organism Status: Acute Assessment and Plan: RESOLVED: sepsis related to Staph aureus bacteremia on blood cultures 02/26/2020. 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 (3) Gram-positive cocci bacteremia: Code(s): R78.81 - Bacteremia Status: Acute Assessment and Plan: 02/26/2020 blood cultures growing Staph aureus 2/2 bottles, pansensitive, - repeat blood cultures from 03/01/2020 Are negative x2 so far - limited echo was done on 02/29/2020, no obvious vegetations are seen, EF 60-65% (4) Ileus: Code(s): K56.7 - Ileus, unspecified Status: Resolved Assessment and Plan: RESOLVED - appreciate GI evaluation recommendation - KUB SHOWS NONOBSTRUCTIVE BOWEL PATTERN - will maintain normal electrolyte balance, replace potassium (5) Atrial fibrillation: Qualifiers: Atrial fibrillation type: unspecified chronic Qualified Code(s): I48.20 - Chronic atrial fibrillation, unspecified Code(s): I48.91 - Unspecified atrial fibrillation Status: Chronic Assessment and Plan: patient with history of AFib, on heparin infusion at this time - rate controlled, increased metoprolol - will continue to monitor for now (6) Cellulitis: Qualifiers: Site of cellulitis: extremity Site of cellulitis of extremity: lower extremity Laterality: right Qualified Code(s): L03.115 - Cellulitis of right lower limb Code(s): L03.90 - Cellulitis, unspecified Status: Acute Assessment and Plan: Patient had a right antecubital fossa infection with purulent draianage on 02/12/20. wound culture showing MERCEDES. completed a course of Bactrim on 02/24/20. Condition clinically has resolved. Continue Eucerin and dressing changes to the right lower extremtiy. (7) DVT (deep venous thrombosis): Qualifiers: DVT location: lower extremity Affected thrombotic vein of extremity: unspecified vein of extremity Chronicity: chronic Laterality: unspecified laterality Qualified Code(s): I82.509 - Chronic embolism and thrombosis of unspecified deep veins of unspecified lower extremity Code(s): I82.409 - Acute embolism and thrombosis of unspecified deep veins of unspecified lower extremity Status: Chronic Assessment and Plan: patient with recent acute DVT, was on Eliquis o
[2020-03-05] MEDS: DEXTROSE 50% 25 GM/50 ML SYRINGE IV PUSH (17:36)
[2020-03-05] MEDS: FUROSEMIDE INJ 40 MG/4 ML VIAL IV PUSH (17:37)
[2020-03-05 18:22] LABS: Glucose Point of Care 70 (65-105)
[2020-03-05 23:56] LABS: Glucose Point of Care 88 (65-105)
[2020-03-06] VITALS (21 sets, daily range): BP systolic 101–121; BP diastolic 67–111; PULSE 67–116; RESP 15–28; TEMP 36.1–36.8; O2SAT 96–100
[2020-03-06] MEDS: METOCLOPRAMIDE HCL INJ 10 MG/2 ML VIAL 5 MG IV PUSH ×3 (00:11→14:12)
[2020-03-06] MEDS: ALBUTEROL SULFATE NEB 2.5 MG/0.5 ML INH INHALATION ×4 (01:49→19:48)
[2020-03-06] MEDS: IPRATROPIUM BR 0.02% INH SOLN 0.5 MG/2.5 ML VIAL INHALATION ×4 (01:49→19:48)
[2020-03-06 05:35] LABS: Partial Thromboplastin Time 98.7 SECONDS (22.3-36.8)
[2020-03-06 05:54] LABS: Glucose Point of Care 77 (65-105)
[2020-03-06] MEDS: DEXTROSE 50% 25 GM/50 ML SYRINGE IV PUSH (06:04)
[2020-03-06 06:28] LABS: Glucose Point of Care 115 (65-105)
[2020-03-06] MEDS: FUROSEMIDE INJ 40 MG/4 ML VIAL IV PUSH ×2 (08:23→17:19)
[2020-03-06] MEDS: PANTOPRAZOLE SODIUM IV 40 MG VIAL IV PUSH (08:23)
[2020-03-06] MEDS: TOLNAFTATE 1% POWDER 45 GM BTL 1 APPLIC TOPICAL ×2 (08:24→20:23)
[2020-03-06] MEDS: METOPROLOL TARTRATE 25 MG TABLET 75 MG PO ×2 (08:24→20:18)
[2020-03-06 09:08] LABS: Hematocrit 28.1 % (37.0-47.0); Hemoglobin 8.2 g/dL (12.0-15.0); Mean Corpuscular HGB Conc 29.2 g/dl (32-36); Mean Corpuscular Hemoglobin 28.4 pg (26-34); Mean Corpuscular Volume 97.2 fl (80-100); Mean Platelet Volume 9.9 fl (7.4-10.4); Platelet Count Result 349 k/mm3 (150-375); Red Blood Count 2.89 M/mm3 (4.2-5.4); Red Cell Distribution Width 16.9 % (11.5-14.5); White Blood Count 8.4 K/mm3 (4.5-10.0)
[2020-03-06 09:20] LABS: Blood Urea Nitrogen 13 mg/dL (7-17); Calcium 8.7 mg/dL (8.4-10.2); Carbon Dioxide 34 mmol/L (22-30); Chloride 96 mmol/L (98-107); Estimated CRCL calculation 68 ml/min; Estimated Glomerular Filt Rate > 60; Glucose 218 mg/dL (65-105); Magnesium 1.9 mg/dL (1.6-2.3); Phosphorus 6.6 mg/dL (2.5-4.5); Potassium 3.6 mmol/L (3.4-5.0); Sodium 134 mmol/L (137-145)
--- NOTE | 2020-03-06 10:41 | PCDIET ---
ICU Rounding Note: Patient is NPO and undergoing swallow evaluation at this time. NG to left nare; MD plans to resume tube feedings if unable to safely advance diet. Noted abdominal x-ray (non-obstructive gas pattern). Last recorded weight is 127.4kg which is decreased. I/O negative. Bowel Motility: BM x 2 on 03/05/20. Labs Reviewed: Glu (218), Na (134), PO4 (6.6) Meds Noted: Albuterol, Lasix, Novolog, Atrovent, Reglan, Protonix, Vancomycin Additional Notes: Right buttock skin tear; right lower leg stasis ulcer; abdomen/buttocks/breast folds macerated. Following daily in ICU rounds. Assessing/reassessing every 3 days.
--- NOTE | 2020-03-06 12:24 | P.PNIM_ITS ---
Progress Note: A&P Assessment and Plan (1) Bacteremia due to methicillin susceptible Staphylococcus aureus (MSSA): Code(s): R78.81 - Bacteremia; B95.61 - Methicillin susceptible Staphylococcus aureus infection as the cause of diseases classified elsewhere Status: Acute Assessment and Plan: * Likely from right antecubital fossa wound with cellulitis * Day 7 vancomycin (2) Acute respiratory failure: Qualifiers: Respiratory failure complication: hypercapnia Qualified Code(s): J96.02 - Acute respiratory failure with hypercapnia Code(s): J96.00 - Acute respiratory failure, unspecified whether with hypoxia or hypercapnia Status: Acute Assessment and Plan: * Probably result of bilateral airspace disease, bacteremia, morbid obesity, dilated bowels and bacterial versus viral pneumonia. * Remained on ventilator 02/25-03/04 * COVID-19 testing completed and negative. * Chest x-ray on 03/05/20 with pleural effusions, infiltates, slightly better * Furosemide 40mg IV bid * Wean oxygen (3) Sepsis: Qualifiers: Sepsis type: sepsis due to unspecified organism Sepsis acute organ dysfunction status: with acute organ dysfunction Severe sepsis acute organ dysfunction type: acute respiratory failure Acute respiratory failure type: with hypercapnia Severe sepsis shock status: without septic shock Qualified Code(s): A41.9 - Sepsis, unspecified organism; R65.20 - Severe sepsis without septic shock; J96.02 - Acute respiratory failure with hypercapnia Code(s): A41.9 - Sepsis, unspecified organism Status: Acute Assessment and Plan: * Criteria met on admission. Initial blood cultures x 2 with MERCEDES. * Limited echocardiogram ordered with no obvious vegetation seen and EF 60-65%. * Repeat blood cultures started on 03/01/2020 remain negative thus far. Urine culture negative. * COVID testing negative as noted. * Continue IV vancomycin (4) Congestive heart failure: Qualifiers: Heart failure type: diastolic Heart failure chronicity: acute on chronic Qualified Code(s): I50.33 - Acute on chronic diastolic (congestive) heart failure Code(s): I50.9 - Heart failure, unspecified Status: Chronic Assessment and Plan: * CT of the chest on 02/19/2020 reviewed showing atelecatasis and small right pleural effusion. * Echocardiogram on 02/19/2020 with EF 50-55%. * New limited echocardiogram with EF 60-65% as noted above. * Continue IV Lasix. (5) Atrial fibrillation: Qualifiers: Atrial fibrillation type: unspecified chronic Qualified Code(s): I48.20 - Chronic atrial fibrillation, unspecified Code(s): I48.91 - Unspecified atrial fibrillation Status: Chronic Assessment and Plan: * Telemetry with atrial fibrillation and heart rate stable. * Continue oral metoprolol. * 03/07 switch from heparin IV to PO apixaban (6) Anemia: Qualifiers: Anemia type: unspecified type Qualified Code(s): D64.9 - Anemia, unspecified Code(s): D64.9 - Anemia, unspecified Status: Acute Assessment and Plan: * Hemoglobin decreased to 6.9 on 03/01/2020 with 1 unit PRBC transfused. * Hgb stable 03/06 at 8.2 * Continue to monitor and transfuse as needed. (7) Hypertension: Qualifiers: Hypertension type: essential hypertension Qualified Code(s): I10 - Essential (primary) hypertension Code(s): I10 - Essential (primary) hypertension Status: Chronic Assessment and Plan: * Blood pressure stable on oral metoprolol
--- NOTE | 2020-03-06 12:24 | PM.IMPN ---
Progress Note: A&P Assessment and Plan (1) Bacteremia due to methicillin susceptible Staphylococcus aureus (MSSA): Code(s): R78.81 - Bacteremia; B95.61 - Methicillin susceptible Staphylococcus aureus infection as the cause of diseases classified elsewhere Status: Acute Assessment and Plan: Likely from right antecubital fossa wound with cellulitis Day 7 vancomycin (2) Acute respiratory failure: Qualifiers: Respiratory failure complication: hypercapnia Qualified Code(s): J96.02 - Acute respiratory failure with hypercapnia Code(s): J96.00 - Acute respiratory failure, unspecified whether with hypoxia or hypercapnia Status: Acute Assessment and Plan: Probably result of bilateral airspace disease, bacteremia, morbid obesity, dilated bowels and bacterial versus viral pneumonia. Remained on ventilator 02/25-03/04 COVID-19 testing completed and negative. Chest x-ray on 03/05/20 with pleural effusions, infiltates, slightly better Furosemide 40mg IV bid Wean oxygen (3) Sepsis: Qualifiers: Sepsis type: sepsis due to unspecified organism Sepsis acute organ dysfunction status: with acute organ dysfunction Severe sepsis acute organ dysfunction type: acute respiratory failure Acute respiratory failure type: with hypercapnia Severe sepsis shock status: without septic shock Qualified Code(s): A41.9 - Sepsis, unspecified organism; R65.20 - Severe sepsis without septic shock; J96.02 - Acute respiratory failure with hypercapnia Code(s): A41.9 - Sepsis, unspecified organism Status: Acute Assessment and Plan: Criteria met on admission. Initial blood cultures x 2 with MERCEDES. Limited echocardiogram ordered with no obvious vegetation seen and EF 60-65%. Repeat blood cultures started on 03/01/2020 remain negative thus far. Urine culture negative. COVID testing negative as noted. Continue IV vancomycin (4) Congestive heart failure: Qualifiers: Heart failure type: diastolic Heart failure chronicity: acute on chronic Qualified Code(s): I50.33 - Acute on chronic diastolic (congestive) heart failure Code(s): I50.9 - Heart failure, unspecified Status: Chronic Assessment and Plan: CT of the chest on 02/19/2020 reviewed showing atelecatasis and small right pleural effusion. Echocardiogram on 02/19/2020 with EF 50-55%. New limited echocardiogram with EF 60-65% as noted above. Continue IV Lasix. (5) Atrial fibrillation: Qualifiers: Atrial fibrillation type: unspecified chronic Qualified Code(s): I48.20 - Chronic atrial fibrillation, unspecified Code(s): I48.91 - Unspecified atrial fibrillation Status: Chronic Assessment and Plan: Telemetry with atrial fibrillation and heart rate stable. Continue oral metoprolol. 03/07 switch from heparin IV to PO apixaban (6) Anemia: Qualifiers: Anemia type: unspecified type Qualified Code(s): D64.9 - Anemia, unspecified Code(s): D64.9 - Anemia, unspecified Status: Acute Assessment and Plan: Hemoglobin decreased to 6.9 on 03/01/2020 with 1 unit PRBC transfused. Hgb stable 03/06 at 8.2 Continue to monitor and transfuse as needed. (7) Hypertension: Qualifiers: Hypertension type: essential hypertension Qualified Code(s): I10 - Essential (primary) hypertension Code(s): I10 - Essential (primary) hypertension Status: Chronic Assessment and Plan: Blood pressure stable on oral metoprolol IV hydralazine PRN (8) Ileus: Code(s): K56.7 - Ileus, unspecified Status: Resolved Assessment and Plan: Previous imaging consistent with ileus Resolved (9) Cellulitis: Qualifiers: Site of cellulitis: extremity Site of cellulitis of extremity: lower extremity Laterality: right Qualified Code(s): L03.115 - Cellulitis of right lower limb
--- NOTE | 2020-03-06 12:25 | WPDINTPN ---
Progress Note: A&P Assessment and Plan (1) Acute respiratory failure: Qualifiers: Respiratory failure complication: hypercapnia Qualified Code(s): J96.02 - Acute respiratory failure with hypercapnia Code(s): J96.00 - Acute respiratory failure, unspecified whether with hypoxia or hypercapnia Status: Acute Assessment and Plan: patient with acute hypercapnic respiratory failure likely related to bilateral airspace disease, bacteremia, morbid obesity, dilated bowels, suspect bacterial versus viral pneumonia INFUENZA A & B Negative 02/26/2020 - patient was intubated on 02/26/2020. extubated on 03/04/2020, post extubation patient developed pulmonary edema, respiratory distress. Was placed on BiPAP and was successfully diuresed. - Patient currently on 2 L nasal cannula with good O2 sats, no respiratory distress. - Chest x-ray shows improved airspace opacities - TERESA-COV-2 pcr swab was NEGATIVE - continue vancomycin, patient has received a course of azithromycin and ceftriaxone (2) Sepsis: Qualifiers: Sepsis type: sepsis due to unspecified organism Sepsis acute organ dysfunction status: with acute organ dysfunction Severe sepsis acute organ dysfunction type: acute respiratory failure Acute respiratory failure type: with hypercapnia Severe sepsis shock status: without septic shock Qualified Code(s): A41.9 - Sepsis, unspecified organism; R65.20 - Severe sepsis without septic shock; J96.02 - Acute respiratory failure with hypercapnia Code(s): A41.9 - Sepsis, unspecified organism Status: Acute Assessment and Plan: RESOLVED: sepsis related to Staph aureus bacteremia on blood cultures 02/26/2020. Repeat blood cultures on 03/01/2020 were negative x2 - continue antibiotics as above - sputum cultures outside [employer] of lower respiratory tract - urine culture with no growth - patient maintaining her blood pressures . (3) Gram-positive cocci bacteremia: Code(s): R78.81 - Bacteremia Status: Acute Assessment and Plan: 02/26/2020 blood cultures growing Staph aureus 2/2 bottles, pansensitive, - repeat blood cultures from 03/01/2020 Are negative x2 so far - limited echo was done on 02/29/2020, no obvious vegetations are seen, EF 60-65% (4) Ileus: Code(s): K56.7 - Ileus, unspecified Status: Resolved Assessment and Plan: RESOLVED - appreciate GI evaluation recommendation - KUB SHOWS NONOBSTRUCTIVE BOWEL PATTERN - will maintain normal electrolyte balance, replace potassium (5) Atrial fibrillation: Qualifiers: Atrial fibrillation type: unspecified chronic Qualified Code(s): I48.20 - Chronic atrial fibrillation, unspecified Code(s): I48.91 - Unspecified atrial fibrillation Status: Chronic Assessment and Plan: patient with history of AFib, on heparin infusion at this time - rate controlled, increased metoprolol - will continue to monitor for now (6) Cellulitis: Qualifiers: Site of cellulitis: extremity Site of cellulitis of extremity: lower extremity Laterality: right Qualified Code(s): L03.115 - Cellulitis of right lower limb Code(s): L03.90 - Cellulitis, unspecified Status: Acute Assessment and Plan: Patient had a right antecubital fossa infection with purulent draianage on 02/12/20. wound culture showing MERCEDES. completed a course of Bactrim on 02/24/20. Condition clinically has resolved. Continue Eucerin and dressing changes to the right lower extremtiy. 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
--- NOTE | 2020-03-06 13:58 | PCSTNOTE ---
Please refer to the Bedside Swallow Evaluation in the EMR. Please note, silent aspiration cannot be ruled out at bedside.
[2020-03-06] MEDS: HEPARIN SOD/D5W 100 UNITS/ML 25,000 UNITS/250 ML BAG 15 UNITS IV CONT (14:14)
[2020-03-06 14:27] LABS: Glucose Point of Care 81 (65-105)
--- NOTE | 2020-03-06 15:00 | PC.NURSE ---
This patient, Trina Larkin, was received from [ICU-12] on 03/06/20 at 1500. Report received from NAINA BERKOWITZ. Personal belongings list checked and signed. Patient/family oriented to unit policies and routines
--- NOTE | 2020-03-06 17:04 | PC.NURSE ---
This patient, Trina Larkin, was transferred to [IMU bed 231 ] on 03/06/20 at 1500. Personal belongings sent with patient. Belongings list checked and signed with receiving [ ]. Report given to [ Linda Tyler]. Appropriate documentation sent with patient.
[2020-03-06 18:13] LABS: Vancomycin Trough 14.2 ug/mL (10.0-20.0)
[2020-03-06] MEDS: ACETAMINOPHEN 500 MG TABLET 1000 MG PO (18:23)
[2020-03-07] VITALS (27 sets, daily range): BP systolic 112–132; BP diastolic 62–79; PULSE 73–112; RESP 16–24; TEMP 36–36.6; O2SAT 90–100
[2020-03-07] MEDS: ALBUTEROL SULFATE NEB 2.5 MG/0.5 ML INH INHALATION ×4 (01:54→20:15)
[2020-03-07] MEDS: IPRATROPIUM BR 0.02% INH SOLN 0.5 MG/2.5 ML VIAL INHALATION ×4 (01:55→20:15)
[2020-03-07 05:11] LABS: Hematocrit 27.7 % (37.0-47.0); Mean Corpuscular HGB Conc 28.9 g/dl (32-36); Mean Corpuscular Hemoglobin 28.1 pg (26-34); Mean Corpuscular Volume 97.2 fl (80-100); Mean Platelet Volume 9.9 fl (7.4-10.4); Platelet Count Result 365 k/mm3 (150-375); Red Blood Count 2.85 M/mm3 (4.2-5.4); Red Cell Distribution Width 16.5 % (11.5-14.5); White Blood Count 8.6 K/mm3 (4.5-10.0)
[2020-03-07 05:25] LABS: Blood Urea Nitrogen 18 mg/dL (7-17); Calcium 8.8 mg/dL (8.4-10.2); Carbon Dioxide 38 mmol/L (22-30); Chloride 95 mmol/L (98-107); Estimated CRCL calculation 55 ml/min; Estimated Glomerular Filt Rate 50; Glucose 114 mg/dL (65-105); Potassium 3.5 mmol/L (3.4-5.0); Sodium 135 mmol/L (137-145)
[2020-03-07] MEDS: APIXABAN 5 MG TABLET PO ×2 (09:01→21:31)
[2020-03-07] MEDS: FUROSEMIDE INJ 40 MG/4 ML VIAL IV PUSH (09:01)
[2020-03-07] MEDS: METOPROLOL TARTRATE 25 MG TABLET 75 MG PO ×2 (09:02→21:30)
[2020-03-07] MEDS: PANTOPRAZOLE SODIUM IV 40 MG VIAL IV PUSH (09:02)
[2020-03-07] MEDS: TOLNAFTATE 1% POWDER 45 GM BTL 1 APPLIC TOPICAL ×2 (09:02→21:31)
--- NOTE | 2020-03-07 13:18 | PCDIET ---
Nutrition Follow-Up Complete: Inadequate oral intake related to oral intubation as evidenced by NPO status. Patient to meet estimated nutritional needs. Goal: Met. Continue current goal. Pt current nutrition is 2gm Na. Nutrition recommendation: Agree Last recorded weight is 122.9 kg (down from admit wt of 126.7kg/ wt loss appropriate due to morbid obesity) Bowel Motility: 03/05 Labs Reviewed: Na 135, Glucose 114 Meds Noted::Protonix, Lasix, Albuterol, Vancomycin Additional Notes: MANAGER APPLICATION recommends regular foods and thin liquids. Pt on appropriate diet eating 100% of meals. Mild wt loss appropriate. Bowels moving. We will continue to monitor for adequate intake every five days.
--- NOTE | 2020-03-07 14:39 | P.PNIM_ITS ---
Progress Note: A&P Assessment and Plan (1) Bacteremia due to methicillin susceptible Staphylococcus aureus (MSSA): Code(s): R78.81 - Bacteremia; B95.61 - Methicillin susceptible Staphylococcus aureus infection as the cause of diseases classified elsewhere Status: Acute Assessment and Plan: * Likely from right antecubital fossa wound with cellulitis * Vancomycin started on 02/26/20 so Day 11. * Continue Vanco for one more day and then change to dicloxacillin to complete a course (2) Acute respiratory failure: Qualifiers: Respiratory failure complication: hypercapnia Qualified Code(s): J96.02 - Acute respiratory failure with hypercapnia Code(s): J96.00 - Acute respiratory failure, unspecified whether with hypoxia or hypercapnia Status: Acute Assessment and Plan: * Probably result of bilateral airspace disease, bacteremia, morbid obesity, dilated bowels and bacterial versus viral pneumonia. * Remained on ventilator 02/25-03/04 * COVID-19 testing completed and negative. * Chest x-ray on 03/06/20 showing improving airspace opacities * Weaned to room air. * Currently on Furosemide 40mg IV bid but creatinine 1.1 now will change to oral Lasix (3) Sepsis: Qualifiers: Acute respiratory failure type: with hypercapnia Sepsis acute organ dysfunction status: with acute organ dysfunction Sepsis type: sepsis due to unspecified organism Severe sepsis acute organ dysfunction type: acute respiratory failure Severe sepsis shock status: without septic shock Qualified Code(s): A41.9 - Sepsis, unspecified organism; R65.20 - Severe sepsis without septic shock; J96.02 - Acute respiratory failure with hypercapnia Code(s): A41.9 - Sepsis, unspecified organism Status: Acute Assessment and Plan: * Criteria met on admission. Initial blood cultures x 2 with MERCEDES. * Limited echocardiogram ordered with no obvious vegetation seen and EF 60-65%. * Repeat blood cultures on 03/01/2020 negative. Urine culture negative. Sputum culture negative. * COVID testing negative as noted. * Continue IV vancomycin as above (4) Congestive heart failure: Qualifiers: Heart failure chronicity: acute on chronic Heart failure type: diastolic Qualified Code(s): I50.33 - Acute on chronic diastolic (congestive) heart failure Code(s): I50.9 - Heart failure, unspecified Status: Chronic Assessment and Plan: * CT of the chest on 02/19/2020 reviewed showing atelecatasis and small right pleural effusion. * Echocardiogram on 02/19/2020 with EF 50-55%. * New limited echocardiogram with EF 60-65% as noted above. * Change to oral Lasix. (5) Atrial fibrillation: Qualifiers: Atrial fibrillation type: unspecified chronic Qualified Code(s): I48.20 - Chronic atrial fibrillation, unspecified Code(s): I48.91 - Unspecified atrial fibrillation Status: Chronic Assessment and Plan: * Patient with chronic atrial fibrillation and heart rate stable. * Continue oral metoprolol. * Switched back to apixaban today (6) Anemia: Qualifiers: Anemia type: unspecified type Qualified Code(s): D64.9 - Anemia, unspecified Code(s): D64.9 - Anemia, unspecified Status: Acute Assessment and Plan: * Hemoglobin decreased to 6.9 on 03/01/2020 with 1 unit PRBC transfused. * Hgb stable in the 8 range * Continue to monitor and transfuse as needed. (7) Hypertension: Qualifiers: Hypertension type: essential hyperten
--- NOTE | 2020-03-07 14:39 | PM.IMPN ---
Progress Note: A&P Assessment and Plan (1) Bacteremia due to methicillin susceptible Staphylococcus aureus (MSSA): Code(s): R78.81 - Bacteremia; B95.61 - Methicillin susceptible Staphylococcus aureus infection as the cause of diseases classified elsewhere Status: Acute Assessment and Plan: Likely from right antecubital fossa wound with cellulitis Vancomycin started on 02/26/20 so Day 11. Continue Vanco for one more day and then change to dicloxacillin to complete a course (2) Acute respiratory failure: Qualifiers: Respiratory failure complication: hypercapnia Qualified Code(s): J96.02 - Acute respiratory failure with hypercapnia Code(s): J96.00 - Acute respiratory failure, unspecified whether with hypoxia or hypercapnia Status: Acute Assessment and Plan: Probably result of bilateral airspace disease, bacteremia, morbid obesity, dilated bowels and bacterial versus viral pneumonia. Remained on ventilator 02/25-03/04 COVID-19 testing completed and negative. Chest x-ray on 03/06/20 showing improving airspace opacities Weaned to room air. Currently on Furosemide 40mg IV bid but creatinine 1.1 now will change to oral Lasix (3) Sepsis: Qualifiers: Acute respiratory failure type: with hypercapnia Sepsis acute organ dysfunction status: with acute organ dysfunction Sepsis type: sepsis due to unspecified organism Severe sepsis acute organ dysfunction type: acute respiratory failure Severe sepsis shock status: without septic shock Qualified Code(s): A41.9 - Sepsis, unspecified organism; R65.20 - Severe sepsis without septic shock; J96.02 - Acute respiratory failure with hypercapnia Code(s): A41.9 - Sepsis, unspecified organism Status: Acute Assessment and Plan: Criteria met on admission. Initial blood cultures x 2 with MERCEDES. Limited echocardiogram ordered with no obvious vegetation seen and EF 60-65%. Repeat blood cultures on 03/01/2020 negative. Urine culture negative. Sputum culture negative. COVID testing negative as noted. Continue IV vancomycin as above (4) Congestive heart failure: Qualifiers: Heart failure chronicity: acute on chronic Heart failure type: diastolic Qualified Code(s): I50.33 - Acute on chronic diastolic (congestive) heart failure Code(s): I50.9 - Heart failure, unspecified Status: Chronic Assessment and Plan: CT of the chest on 02/19/2020 reviewed showing atelecatasis and small right pleural effusion. Echocardiogram on 02/19/2020 with EF 50-55%. New limited echocardiogram with EF 60-65% as noted above. Change to oral Lasix. (5) Atrial fibrillation: Qualifiers: Atrial fibrillation type: unspecified chronic Qualified Code(s): I48.20 - Chronic atrial fibrillation, unspecified Code(s): I48.91 - Unspecified atrial fibrillation Status: Chronic Assessment and Plan: Patient with chronic atrial fibrillation and heart rate stable. Continue oral metoprolol. Switched back to apixaban today (6) Anemia: Qualifiers: Anemia type: unspecified type Qualified Code(s): D64.9 - Anemia, unspecified Code(s): D64.9 - Anemia, unspecified Status: Acute Assessment and Plan: Hemoglobin decreased to 6.9 on 03/01/2020 with 1 unit PRBC transfused. Hgb stable in the 8 range Continue to monitor and transfuse as needed. (7) Hypertension: Qualifiers: Hypertension type: essential hypertension Qualified Code(s): I10 - Essential (primary) hypertension Code(s): I10 - Essential (primary) hypertension Status: Chronic Assessment and Plan: Blood pressure stable on oral metoprolol IV hydralazine PRN (8) Ileus: Code(s): K56.7 - Ileus, unspecified Status: Resolved Assessment and Plan: Previous imaging consistent with ileus Recent KUB showing hayder
[2020-03-07] MEDS: SIMVASTATIN 20 MG TABLET PO (21:31)
[2020-03-07] MEDS: ACETAMINOPHEN 325 MG TABLET 650 MG PO (21:33)
[2020-03-08] VITALS (26 sets, daily range): BP systolic 109–149; BP diastolic 60–93; PULSE 78–116; RESP 18–30; TEMP 35.5–36.1; O2SAT 90–100
[2020-03-08] MEDS: ACETAMINOPHEN 325 MG TABLET 650 MG PO ×4 (01:59→22:15)
[2020-03-08] MEDS: IPRATROPIUM BR 0.02% INH SOLN 0.5 MG/2.5 ML VIAL INHALATION ×4 (02:10→20:01)
[2020-03-08] MEDS: ALBUTEROL SULFATE NEB 2.5 MG/0.5 ML INH INHALATION ×4 (02:10→20:01)
[2020-03-08 04:27] LABS: Hemoglobin 8.7 g/dL (12.0-15.0); Mean Corpuscular Hemoglobin 28.4 pg (26-34); Mean Corpuscular Volume 94.8 fl (80-100); Mean Platelet Volume 9.1 fl (7.4-10.4); Platelet Count Result 355 k/mm3 (150-375); Red Blood Count 3.06 M/mm3 (4.2-5.4); Red Cell Distribution Width 16.3 % (11.5-14.5); White Blood Count 9.8 K/mm3 (4.5-10.0)
[2020-03-08 04:39] LABS: Blood Urea Nitrogen 18 mg/dL (7-17); Calcium 8.7 mg/dL (8.4-10.2); Carbon Dioxide 33 mmol/L (22-30); Chloride 94 mmol/L (98-107); Estimated CRCL calculation 55 ml/min; Estimated Glomerular Filt Rate 50; Glucose 126 mg/dL (65-105); Potassium 3.2 mmol/L (3.4-5.0); Sodium 131 mmol/L (137-145)
--- NOTE | 2020-03-08 04:46 | ECG_ITS ---
Measurements Intervals [place] Rate: 92 P: SD: 0 QRS: -10 QRSD: 127 T: -60 QT: 412 QTc: 511 Interpretive Statements ATRIAL FIBRILLATION INTRAVENTRICULAR CONDUCTION DELAY EARLY PRECORDIAL R/S TRANSITION BORDERLINE ST-T WAVE ABNORMALITY- DIFFUSE LEADS BASELINE ARTIFACT- V4 Electronically Signed On 03-08-2020 7:15:12 CDT by Mike Carrasquillo D.O.
[2020-03-08 05:10] LABS: Magnesium 1.7 mg/dL (1.6-2.3); Phosphorus 4.5 mg/dL (2.5-4.5)
[2020-03-08] MEDS: MAGNESIUM SULF 2 GM/WATER 50ML 2 GM/50 ML BAG IVPB (05:44)
--- NOTE | 2020-03-08 07:52 | PM.IMPN ---
Progress Note: A&P Assessment and Plan (1) Sinus pause: Code(s): I45.5 - Other specified heart block Status: Acute Assessment and Plan: Patient with up to a 10 sec pause this morning. Did have about 2 sec pauses yesterday but no mention in the notes of significant pauses since admission. She remained asymptomatic from this. Could be related to the metoprolol but this is a home med. Could be related to the PICC line and RN to check to see if this has migrated in since placement. Consider also the development of tachybrady syndrome. Consider also endocarditis given the recent bacteremia. Mag and potassium low so these have been replaced. Continue tele. Cardiology has been consulted. Metoprolol has been stopped. (2) Bacteremia due to methicillin susceptible Staphylococcus aureus (MSSA): Code(s): R78.81 - Bacteremia; B95.61 - Methicillin susceptible Staphylococcus aureus infection as the cause of diseases classified elsewhere Status: Acute Assessment and Plan: Likely from right antecubital fossa wound with cellulitis BCx 02/26/20 positive for MSSA. Repeat BCx on 03/01 negative. Echo 02/28 showing no obvious vegetations. Vancomycin started on 02/26/20 so Day 12. Will change to oxacillin since has to remain hospitalized (3) Acute respiratory failure: Qualifiers: Respiratory failure complication: hypercapnia Qualified Code(s): J96.02 - Acute respiratory failure with hypercapnia Code(s): J96.00 - Acute respiratory failure, unspecified whether with hypoxia or hypercapnia Status: Acute Assessment and Plan: CXR showing bilateral airspace disease related to bacteremia, morbid obesity, dilated bowels and bacterial versus viral pneumonia. Remained on ventilator 02/25-03/04/20 COVID-19 testing negative. Chest x-ray today showing worsening airspace disease on the right; atelectasis? Aspiration? Has been weaned to room air. Was on Furosemide 40mg IV bid but changed to oral Lasix 03/07/20 Add Incentive spirometry. Check MBS. Continue oral Lasix for now but consider changing to IV (4) Sepsis: Qualifiers: Acute respiratory failure type: with hypercapnia Sepsis acute organ dysfunction status: with acute organ dysfunction Sepsis type: sepsis due to unspecified organism Severe sepsis acute organ dysfunction type: acute respiratory failure Severe sepsis shock status: without septic shock Qualified Code(s): A41.9 - Sepsis, unspecified organism; R65.20 - Severe sepsis without septic shock; J96.02 - Acute respiratory failure with hypercapnia Code(s): A41.9 - Sepsis, unspecified organism Status: Acute Assessment and Plan: Criteria met on admission. Initial blood cultures x 2 with MERCEDES. Limited echo 02/29/20 with no obvious vegetation seen and EF 60-65%. Repeat blood cultures on 03/01/2020 negative. Urine culture negative. Sputum culture negative. COVID testing negative as noted. As above; Consider AL (5) Congestive heart failure: Qualifiers: Heart failure chronicity: acute on chronic Heart failure type: diastolic Qualified Code(s): I50.33 - Acute on chronic diastolic (congestive) heart failure Code(s): I50.9 - Heart failure, unspecified Status: Chronic Assessment and Plan: CT of the chest on 02/19/2020 reviewed showing atelecatasis and small right pleural effusion. Echo on 02/19/20 with EF 50-55%. Limited echo 02/29/20 with EF 60-65% as noted above. Changed to oral Lasix 03/07/20. Continue the same for now; resume IV Lasix if develops O2 requirement (6) Atrial fibrillation: Qualifiers: Atrial fibrillation type: unspecified chronic Qualified Code(s): I48.20 - Chronic atrial fibrillation, unspecified Code(s): I48.91 - Unspecified atrial fibrillation Status: Chronic Assessment and Plan: Patient with chronic atrial fibrillation Oral metopr
[2020-03-08] MEDS: CHOLECALCIFEROL 1,000 UNIT TABLET 1000 UNITS PO (09:00)
[2020-03-08] MEDS: FUROSEMIDE 40 MG TABLET PO (09:00)
[2020-03-08] MEDS: PANTOPRAZOLE 40 MG TABLET PO (09:00)
[2020-03-08] MEDS: TOLNAFTATE 1% POWDER 45 GM BTL 1 APPLIC TOPICAL ×2 (09:01→22:14)
[2020-03-08] MEDS: OXACILLIN SODIUM 2 GM in SODIUM CHLORIDE 0.9% IV 100 ML IVPB ×3 (09:01→22:14)
--- NOTE | 2020-03-08 10:24 | PM.CNCAR ---
Assessment and Plan Additional Plan 69-year-old female with: Chronic atrial fibrillation had been on metoprolol for rate control and apixaban for systemic anticoagulation. Patient has had atrial fib for several years by her history and undoubtedly this is related to obesity/sleep apnea Staph aureus sepsis related to an infected IV site at the time of admission to the inpatient service last week. In the setting of asystolic pauses as described above 1 must be at least somewhat concerned about ruling out endocarditis and a perivalvular abscess which certainly is possible with staphylococcal sepsis. There is no other clinical evidence currently that she is septic or that she has endocarditis on the transthoracic echo did not demonstrate any findings suspicious of this. An esophageal echo has been considered by the primary service and this is quite reasonable and probably indicated. To get this study done I would need to have anesthesia involved because of her massive obesity in addition to this she has not been held NPO and at the time of me seeing her today as just finished her breakfast tray. For this reason unfortunately I cannot reasonably perform an esophageal echo today and if we keep her in the hospital to do this it would not occur until Wednesday. Regarding the pauses I suspect these are contributed to by vagal tone as well as significant sleep apnea. Given her lack of syncopal events and massive obesity at this time I am not going to read recommend implanting a pacemaker in her. Unless I hear otherwise I will attempt to arrange for esophageal echo to be done on Wednesday with anesthesia involved. Larry Simons MD [facility] History of Present Illness History of Present Illness Consult date/time: 03/08/20 10:24 Consult reason: atrial fibrillation Reason For Visit: Acute respiratory failure Narrative: This is a 69-year-old woman I am seeing at the request of the hospitalist who were concerned about dark cardiac arrhythmias, bradycardic pauses in the setting of a lady who had Staph aureus bacteremia last week. I have no previous involvement with this patient's case. She had appears to have a history of chronic atrial fibrillation. She is a good historian and indicates that she was found to have atrial fib about 3 years ago. Her engineering technical specialist is located at [place] and not available here at [facility]. She does not remember anything else being wrong with her heart other than atrial fibrillation and she was treated with a combination of metoprolol and apixaban. She has as comorbidities morbid obesity hypertension and dyslipidemia. She was hospitalized back in January of this year I after sustaining a fall and she presented to [facility] was found to have a fracture of her left humerus and her 6 thoracic vertebrae. She was was at her home she states and lost her footing and tripped and fell sounds like a mechanical fall. She did not lose consciousness and she indicates she has never had a syncopal episode in her life. At the [facility] [place] [place] it was determined by consultants that her fractures would be managed non operatively. She was placed in a immobilizer regarding her arm and a body/trunk immobilizer regarding her thoracic spine. She was on the rehab service here at [place] after all this and was transferred to the inpatient service on March 07 looks like because of shortness of breath. She had relatively severe shortness of breath ended up getting intubated and put into the ICU. COVID was suspected but rim was tested negative for this. She was obviously subsequently extubated a couple of days ago and transferred out to the floor for further treatment and evaluation. An echocardiogram was done last week and interpreted by Dr. Arcos without any significant abnormalities. When she came into the hospital she had an infected antecubital IV with Prieb alert material at the insertion site and she was febrile with blood cultures
--- NOTE | 2020-03-08 11:41 | PCSTNOTE ---
Unable to complete MBS this date secondary to patient L arm immobility and obesity impacting movement of x-ray equipment for view of swallow function. Per radiology staff, MBS not able to completed at this time. Per patient and RN, tolerating regular diet and thin liquids without overt s/s of penetration/aspiration. Rec patient remain on current diet and re-consult ST should s/s increase.
[2020-03-08] MEDS: POTASSIUM CHLORIDE 20 MEQ TABLET 40 MEQ PO (14:26)
[2020-03-08] MEDS: SIMVASTATIN 20 MG TABLET PO (21:51)
[2020-03-09] VITALS (28 sets, daily range): BP systolic 123–148; BP diastolic 68–86; PULSE 42–127; RESP 18–36; TEMP 36–37.1; O2SAT 95–100
[2020-03-09] MEDS: IPRATROPIUM BR 0.02% INH SOLN 0.5 MG/2.5 ML VIAL INHALATION ×4 (00:19→20:48)
[2020-03-09] MEDS: ALBUTEROL SULFATE NEB 2.5 MG/0.5 ML INH INHALATION ×4 (00:19→20:48)
[2020-03-09] MEDS: OXACILLIN SODIUM 2 GM in SODIUM CHLORIDE 0.9% IV 100 ML IVPB ×5 (03:34→21:12)
[2020-03-09 04:55] LABS: Basophils Absolute Auto 0.1 K/mm3 (0.0-0.1); Basophils Percent Auto 0.8 % (0.2-1.2); Eosinophils Absolute Auto 0.1 K/mm3 (0-0.3); Eosinophils Percent Auto 1.3 % (0-4.4); Hematocrit 27.1 % (37.0-47.0); Immature Granulocyte Absolute 0.03 K/mm3 (0.00-0.031); Immature Granulocyte Percent A 0.5 % (0-0.5); Lymphocytes Absolute Auto 1.07 K/mm3 (0.9-3.2); Mean Corpuscular HGB Conc 29.5 g/dl (32-36); Mean Corpuscular Hemoglobin 28.1 pg (26-34); Mean Corpuscular Volume 95.1 fl (80-100); Mean Platelet Volume 9.3 fl (7.4-10.4); Monocytes Absolute Auto 0.7 K/mm3 (0.1-0.6); Monocytes Percent Auto 11.3 % (2.6-8.5); Neutrophils Absolute Auto 4.4 K/mm3 (1.3-6.7); Neutrophils Percent Auto 69.1 % (45.5-73.1); Platelet Count Result 307 k/mm3 (150-375); Red Blood Count 2.85 M/mm3 (4.2-5.4); Red Cell Distribution Width 16.1 % (11.5-14.5); White Blood Count 6.3 K/mm3 (4.5-10.0)
[2020-03-09] MEDS: ACETAMINOPHEN 325 MG TABLET 650 MG PO ×3 (05:07→21:11)
[2020-03-09 05:14] LABS: Alanine Aminotransferase 17 U/L (4-35); Alkaline Phosphatase 82 U/L (38-126); Aspartate Amino Transferase 18 U/L (14-36); Bilirubin,Total 0.3 mg/dL (0.2-1.3); Blood Urea Nitrogen 16 mg/dL (7-17); CRP 7.2 mg/dL (<1.0); Calcium 8.5 mg/dL (8.4-10.2); Carbon Dioxide 31 mmol/L (22-30); Chloride 97 mmol/L (98-107); Estimated CRCL calculation 56 ml/min; Estimated Glomerular Filt Rate 50; Glucose 109 mg/dL (65-105); Phosphorus 4.4 mg/dL (2.5-4.5); Potassium 3.4 mmol/L (3.4-5.0); Sodium 135 mmol/L (137-145)
[2020-03-09] MEDS: CHOLECALCIFEROL 1,000 UNIT TABLET 1000 UNITS PO (08:48)
[2020-03-09] MEDS: POTASSIUM CHLORIDE 20 MEQ TABLET.ER 40 MEQ PO (08:48)
[2020-03-09] MEDS: PANTOPRAZOLE 40 MG TABLET PO (08:48)
[2020-03-09] MEDS: FUROSEMIDE 40 MG TABLET PO (08:48)
[2020-03-09] MEDS: TOLNAFTATE 1% POWDER 45 GM BTL 1 APPLIC TOPICAL (08:48)
--- NOTE | 2020-03-09 11:22 | P.PNIM_ITS ---
Progress Note: A&P Assessment and Plan (1) Sinus pause: Code(s): I45.5 - Other specified heart block Status: Acute Assessment and Plan: * Patient with up to a 10 sec pause on 03/08/20 and patietn remained asymptomatic from this * Differential: From metoprolol but this is a home med; Related to PICC line; Development of tachybrady syndrome; Endocarditis with cardiac abscess * Mag and potassium were low so were replaced. Potassium low end today so will order another replacement * Continue tele. Appreciate Cardiology input. Metoprolol has been stopped. AL for Wednesday. (2) Bacteremia due to methicillin susceptible Staphylococcus aureus (MSSA): Code(s): R78.81 - Bacteremia; B95.61 - Methicillin susceptible Staphylococcus aureus infection as the cause of diseases classified elsewhere Status: Acute Assessment and Plan: * Likely from right antecubital fossa wound with cellulitis * BCx 02/26/20 positive for MSSA. Repeat BCx on 03/01 negative. * Echo 02/28 showing no obvious vegetations. * Vancomycin started on 02/26/20 and changed to Oxacillin on 03/08/20 * Currently Abx Day 13 (3) Acute respiratory failure: Qualifiers: Respiratory failure complication: hypercapnia Qualified Code(s): J96.02 - Acute respiratory failure with hypercapnia Code(s): J96.00 - Acute respiratory failure, unspecified whether with hypoxia or hypercapnia Status: Acute Assessment and Plan: * CXR showing bilateral airspace disease related to bacteremia, morbid obesity, dilated bowels and bacterial versus viral pneumonia. * Required mechanical ventilation 02/25-03/04/20 * COVID-19 testing negative. * Chest x-ray 03/08 showing worsening airspace disease on the right but clinically improving * Was on Furosemide 40mg IV bid but changed to oral Lasix 03/07/20 * Continue Incentive spirometry. MBS unable to be obtained. Patient tolerating oral intake without signs/sx of aspiration. * Continue oral Lasix for now but consider changing to IV if persistent/worsening respirtory sx (4) Sepsis: Qualifiers: Sepsis type: sepsis due to unspecified organism Sepsis acute organ dysf unction status: with acute organ dysfunction Severe sepsis acute organ dysfunction type: acute respiratory failure Acute respiratory failure type: with hypercapnia Severe sepsis shock status: without septic shock Qualified Code(s): A41.9 - Sepsis, unspecified organism; R65.20 - Severe sepsis without septic shock; J96.02 - Acute respiratory failure with hypercapnia Code(s): A41.9 - Sepsis, unspecified organism Status: Acute Assessment and Plan: * Sepsis with septicemia: Criteria met on admission. Initial blood cultures x 2 with MERCEDES. * Limited echo 02/29/20 with no obvious vegetation seen and EF 60-65%. * Repeat blood cultures on 03/01/2020 negative. Urine culture negative. Sputum culture negative. * COVID testing negative as noted. * As above; AL being planned for Wednesday (5) Congestive heart failure: Qualifiers: Heart failure type: diastolic Heart failure chronicity: acute on chronic Qualified Code(s): I50.33 - Acute on chronic diastolic (congestive) heart failure Code(s): I50.9 - Heart failure, unspecified Status: Chronic Assessment and Plan: * CT of the chest on 02/19/2020 showing atelecatasis and small right pleural effusion. * Echo on 02/19/20 with EF 50-55%. Limited echo 02/29/20 with EF 60-65% as noted above. * Changed to oral Lasix 40mg daily on 03/07/20. * Cr stable at 1.1. Potassium 3.4. Add oral potas
--- NOTE | 2020-03-09 11:22 | PM.IMPN ---
Progress Note: A&P Assessment and Plan (1) Sinus pause: Code(s): I45.5 - Other specified heart block Status: Acute Assessment and Plan: Patient with up to a 10 sec pause on 03/08/20 and patietn remained asymptomatic from this Differential: From metoprolol but this is a home med; Related to PICC line; Development of tachybrady syndrome; Endocarditis with cardiac abscess Mag and potassium were low so were replaced. Potassium low end today so will order another replacement Continue tele. Appreciate Cardiology input. Metoprolol has been stopped. AL for Wednesday. (2) Bacteremia due to methicillin susceptible Staphylococcus aureus (MSSA): Code(s): R78.81 - Bacteremia; B95.61 - Methicillin susceptible Staphylococcus aureus infection as the cause of diseases classified elsewhere Status: Acute Assessment and Plan: Likely from right antecubital fossa wound with cellulitis BCx 02/26/20 positive for MSSA. Repeat BCx on 03/01 negative. Echo 02/28 showing no obvious vegetations. Vancomycin started on 02/26/20 and changed to Oxacillin on 03/08/20 Currently Abx Day 13 (3) Acute respiratory failure: Qualifiers: Respiratory failure complication: hypercapnia Qualified Code(s): J96.02 - Acute respiratory failure with hypercapnia Code(s): J96.00 - Acute respiratory failure, unspecified whether with hypoxia or hypercapnia Status: Acute Assessment and Plan: CXR showing bilateral airspace disease related to bacteremia, morbid obesity, dilated bowels and bacterial versus viral pneumonia. Required mechanical ventilation 02/25-03/04/20 COVID-19 testing negative. Chest x-ray 03/08 showing worsening airspace disease on the right but clinically improving Was on Furosemide 40mg IV bid but changed to oral Lasix 03/07/20 Continue Incentive spirometry. MBS unable to be obtained. Patient tolerating oral intake without signs/sx of aspiration. Continue oral Lasix for now but consider changing to IV if persistent/worsening respirtory sx (4) Sepsis: Qualifiers: Sepsis type: sepsis due to unspecified organism Sepsis acute organ dysfunction status: with acute organ dysfunction Severe sepsis acute organ dysfunction type: acute respiratory failure Acute respiratory failure type: with hypercapnia Severe sepsis shock status: without septic shock Qualified Code(s): A41.9 - Sepsis, unspecified organism; R65.20 - Severe sepsis without septic shock; J96.02 - Acute respiratory failure with hypercapnia Code(s): A41.9 - Sepsis, unspecified organism Status: Acute Assessment and Plan: Sepsis with septicemia: Criteria met on admission. Initial blood cultures x 2 with MERCEDES. Limited echo 02/29/20 with no obvious vegetation seen and EF 60-65%. Repeat blood cultures on 03/01/2020 negative. Urine culture negative. Sputum culture negative. COVID testing negative as noted. As above; AL being planned for Wednesday (5) Congestive heart failure: Qualifiers: Heart failure type: diastolic Heart failure chronicity: acute on chronic Qualified Code(s): I50.33 - Acute on chronic diastolic (congestive) heart failure Code(s): I50.9 - Heart failure, unspecified Status: Chronic Assessment and Plan: CT of the chest on 02/19/2020 showing atelecatasis and small right pleural effusion. Echo on 02/19/20 with EF 50-55%. Limited echo 02/29/20 with EF 60-65% as noted above. Changed to oral Lasix 40mg daily on 03/07/20. Cr stable at 1.1. Potassium 3.4. Add oral potassium replacement (6) Atrial fibrillation: Qualifiers: Atrial fibrillation type: unspecified chronic Qualified Code(s): I48.20 - Chronic atrial fibrillation, unspecified Code(s): I48.91 - Unspecified atrial fibrillation Status: Chronic Assessment and Plan: Patient with chronic atrial fibrillation Oral metoprolol stopped today due to prolong
[2020-03-09] MEDS: METOPROLOL TARTRATE 25 MG TABLET PO ×2 (13:30→21:55)
[2020-03-09] MEDS: SIMVASTATIN 20 MG TABLET PO (21:11)
[2020-03-10] VITALS (28 sets, daily range): BP systolic 92–128; BP diastolic 62–94; PULSE 67–108; RESP 15–32; TEMP 35.9–36.8; O2SAT 93–100
[2020-03-10] MEDS: TOLNAFTATE 1% POWDER 45 GM BTL 1 APPLIC TOPICAL ×3 (00:15→21:23)
[2020-03-10] MEDS: ACETAMINOPHEN 325 MG TABLET 650 MG PO ×4 (01:21→22:13)
[2020-03-10] MEDS: OXACILLIN SODIUM 2 GM in SODIUM CHLORIDE 0.9% IV 100 ML IVPB ×6 (01:22→21:22)
[2020-03-10] MEDS: ALBUTEROL SULFATE NEB 2.5 MG/0.5 ML INH INHALATION ×4 (02:54→19:42)
[2020-03-10] MEDS: IPRATROPIUM BR 0.02% INH SOLN 0.5 MG/2.5 ML VIAL INHALATION ×4 (02:54→19:42)
[2020-03-10 05:05] LABS: Hematocrit 29.1 % (37.0-47.0); Hemoglobin 8.6 g/dL (12.0-15.0); Mean Corpuscular HGB Conc 29.6 g/dl (32-36); Mean Corpuscular Hemoglobin 28.6 pg (26-34); Mean Corpuscular Volume 96.7 fl (80-100); Mean Platelet Volume 9.3 fl (7.4-10.4); Platelet Count Result 344 k/mm3 (150-375); Red Blood Count 3.01 M/mm3 (4.2-5.4); Red Cell Distribution Width 16.3 % (11.5-14.5); White Blood Count 7.8 K/mm3 (4.5-10.0)
[2020-03-10 05:29] LABS: Blood Urea Nitrogen 16 mg/dL (7-17); Calcium 8.8 mg/dL (8.4-10.2); Carbon Dioxide 30 mmol/L (22-30); Chloride 99 mmol/L (98-107); Estimated CRCL calculation 61 ml/min; Estimated Glomerular Filt Rate 55; Glucose 88 mg/dL (65-105); Sodium 133 mmol/L (137-145)
[2020-03-10 06:02] LABS: Potassium 3.9 mmol/L (3.4-5.0)
[2020-03-10] MEDS: POTASSIUM CHLORIDE 20 MEQ TABLET.ER 40 MEQ PO (09:44)
[2020-03-10] MEDS: FUROSEMIDE 40 MG TABLET PO (09:44)
[2020-03-10] MEDS: CHOLECALCIFEROL 1,000 UNIT TABLET 1000 UNITS PO (09:44)
[2020-03-10] MEDS: PANTOPRAZOLE 40 MG TABLET PO (09:44)
[2020-03-10] MEDS: METOPROLOL TARTRATE 25 MG TABLET PO ×2 (09:44→21:22)
--- NOTE | 2020-03-10 13:32 | PM.PNCARD ---
Progress Note: A&P Additional Plan AF with RVR developed with holding B-jorje, and at times she had pauses and bradycardia with higher dose of B-blockers, staph bacteremia and pending AL under anaethesia, cont apixaban, lasix, and smaller dose of B-blockers 25 mg BID. Subjective Date/time seen: 03/10/20 13:32 Interval history: Seen for AF with pauses and tachycardia and bacteremia [place] cute events yesterday AF with RVR on Tele yesterday morning improved with restarting smaller dose of B-jorje Review of Systems Review of Systems: All systems reviewed & are unremarkable except as noted in HPI and below Exam Const: General: comfortable and no acute distress Resp: Other: distant lung sounds and equal air entry Cardio: Rate: abnormal rate Rhythm: abnormal rhythm Neuro: Speech: normal speech Psych: Mental Status: mental status grossly normal Affect: normal affect Objective Data Vital Signs Vital Signs: Vital Signs - 24 hr 03/09/20 14:00 03/09/20 14:38 03/09/20 14:44 Temperature Pulse Rate 103 H 80 73 Respiratory Rate 18 18 Blood Pressure Pulse Oximetry 03/09/20 16:00 03/09/20 18:16 03/09/20 19:59 Temperature 36.0 C L 37.1 C Pulse Rate 84 97 89 Respiratory Rate 30 H 20 Blood Pressure 127/68 123/81 Pulse Oximetry 96 100 03/09/20 20:00 03/09/20 20:48 03/09/20 20:54 Temperature Pulse Rate 113 H 90 90 Respiratory Rate 18 20 Blood Pressure Pulse Oximetry 100 03/09/20 20:55 03/09/20 21:55 03/09/20 22:00 Temperature Pulse Rate 89 88 88 Respiratory Rate 18 Blood Pressure Pulse Oximetry 03/10/20 00:00 03/10/20 01:10 03/10/20 02:00 Temperature 36.8 C Pulse Rate 79 86 77 Respiratory Rate 20 16 Blood Pressure 109/64 Pulse Oximetry 94 99 03/10/20 02:54 03/10/20 03:03 03/10/20 04:00 Temperature 36.2 C L Pulse Rate 77 74 86 Respiratory Rate 18 18 20 Blood Pressure 105/71 Pulse Oximetry 95 03/10/20 06:00 03/10/20 06:17 03/10/20 08:00 Temperature 35.9 C L Pulse Rate 78 81 81 Respiratory Rate 15 20 Blood Pressure 92/74 L Pulse Oximetry 98 98 03/10/20 08:31 03/10/20 08:33 03/10/20 08:34 Temperature Pulse Rate 67 67 67 Respiratory Rate 18 18 18 Blood Pressure Pulse Oximetry 97 97 03/10/20 08:37 03/10/20 09:44 03/10/20 10:22 Temperature Pulse Rate 72 108 H 88 Respiratory Rate 18 Blood Pressure Pulse Oximetry 03/10/20 12:47 Temperature 36.2 C L Pulse Rate 89 Respiratory Rate 28 H Blood Pressure 121/94 H Pulse Oximetry 100 Intake/Output Intake/Output: Intake & Output 03/07/20 03/08/20 03/09/20 03/10/20 23:59 23:59 23:59 23:59 Intake Total 1330 1670 1989 886 Output Total 200 1175 Balance 2952 285 9964 886 Meds/Results Medications: Active Medications Generic Name Dose Route Start Last Admin Trade Name Freq PRN Reason Stop Dose Admin Acetaminophen 650 mg 03/07/20 15:07 03/10/20 11:06 Tylenol Tablet PO 650 mg Q4H PRN Administration Pain Albuterol 2.5 mg 03/04/20 14:20 03/10/20 08:30 Albuterol Sulf Neb 2.5mg/0.5ml INHALATION 2.5 mg Q6HRT DEWAYNE Administration Alteplase, Recombinant 2 mg 03/08/20 05:14 Cathflo Activase IV PUSH ONCE PRN Line Occlusion Apixaban 5 mg 03/07/20 09:00 03/07/20 21:31 Eliquis PO 5 mg Q12HR DEWAYNE Administration Dextrose 12.5 gm 02/26/20 17:22 03/06/20 06:04 Dextrose 50% Syringe IV PUSH 12.5 gm PRN PRN Administration Hypoglycemia Protocol Furosemide 40 mg 03/08/20 09:00 03/10/20 09:44 Lasix Tablet PO 40 mg DAILY DEWAYNE Administration Glucagon 1 mg 02/26/20 17:22 Glucagon For Inj IM PRN PRN Hypoglycemia Protocol Glucose 15 gm 02/26/20 17:22 Glutose 15 PO PRN PRN Hypoglycemia Protocol Hydralazine HCl 10 mg 02/26/20 21:52 Apresoline Hcl Inj IV PUSH Q8H PRN Blood Pressure - High Dextrose 1,000 mls @ 1
--- NOTE | 2020-03-10 16:04 | P.PNIM_ITS ---
Progress Note: A&P Assessment and Plan (1) Sinus pause: Code(s): I45.5 - Other specified heart block Status: Acute Assessment and Plan: * Patient with up to a 10 sec pause on 03/08/20 and patient was asymptomatic from this * Could be from metoprolol but this is a home med; Related to PICC line; Development of tachybrady syndrome; Endocarditis with cardiac abscess * Mag and potassium were low so were replaced. Potassium normal today of scheduled replacement * Continue tele. Appreciate Cardiology input. Metoprolol resumed at lower dose. NPO for AL for tomorrow. (2) Bacteremia due to methicillin susceptible Staphylococcus aureus (MSSA): Code(s): R78.81 - Bacteremia; B95.61 - Methicillin susceptible Staphylococcus aureus infection as the cause of diseases classified elsewhere Status: Acute Assessment and Plan: * Likely from right antecubital fossa wound with cellulitis * BCx 02/26/20 positive for MSSA. Repeat BCx on 03/01 negative. * Echo 02/28 showing no obvious vegetations. * Vancomycin started on 02/26/20 and changed to Oxacillin on 03/08/20 * Currently Abx Day 14 (3) Acute respiratory failure: Qualifiers: Respiratory failure complication: hypercapnia Qualified Code(s): J96.02 - Acute respiratory failure with hypercapnia Code(s): J96.00 - Acute respiratory failure, unspecified whether with hypoxia or hypercapnia Status: Acute Assessment and Plan: * CXR showing bilateral airspace disease related to bacteremia, morbid obesity, dilated bowels and bacterial versus viral pneumonia. * Required mechanical ventilation 02/25-03/04/20 * COVID-19 testing negative. * Chest x-ray 03/08 showing worsening airspace disease on the right but clinically improving so suspect aelectasis * Was on Furosemide 40mg IV bid but changed to oral Lasix 40mg daily on 03/07/20 * Continue Incentive spirometry. MBS unable to be obtained. Patient tolerating oral intake without signs/sx of aspiration. * Continue oral Lasix for now but consider changing to IV if persistent/worsening respiratory sx * Repeat CXR in the morning (4) Sepsis: Qualifiers: Acute respiratory failure type: with hypercapnia Sepsis acute organ dysfunction status: with acute organ dysfunction Sepsis type: sepsis due to unspecified organism Severe sepsis acute organ dysfunction type: acute respiratory failure Severe sepsis shock status: without septic shock Qualified Code(s): A41.9 - Sepsis, unspecified organism; R65.20 - Severe sepsis without septic shock; J96.02 - Acute respiratory failure with hypercapnia Code(s): A41.9 - Sepsis, unspecified organism Status: Acute Assessment and Plan: * Sepsis with septicemia: Criteria met on admission. Initial 02/26/20 blood cultures x 2 with MERCEDES. * Limited echo 02/29/20 with no obvious vegetation seen and EF 60-65%. * Repeat blood cultures on 03/01/2020 negative. Urine culture negative. Sputum culture negative. * COVID testing negative as noted. * As above; AL planned for tomorrow (5) Congestive heart failure: Qualifiers: Heart failure chronicity: acute on chronic Heart failure type: diastolic Qualified Code(s): I50.33 - Acute on chronic diastolic (congestive) heart failure Code(s): I50.9 - Heart failure, unspecified Status: Chronic Assessment and Plan: * CT of the chest on 02/19/2020 showing atelecatasis and small right pleural effusion. * Echo on 02/19/20 with EF 50-55%. Limited echo 02/29/20 with EF 60-65% as noted above. * Changed to oral Lasix 40mg daily on 03/07/20.
--- NOTE | 2020-03-10 16:04 | PM.IMPN ---
Progress Note: A&P Assessment and Plan (1) Sinus pause: Code(s): I45.5 - Other specified heart block Status: Acute Assessment and Plan: Patient with up to a 10 sec pause on 03/08/20 and patient was asymptomatic from this Could be from metoprolol but this is a home med; Related to PICC line; Development of tachybrady syndrome; Endocarditis with cardiac abscess Mag and potassium were low so were replaced. Potassium normal today of scheduled replacement Continue tele. Appreciate Cardiology input. Metoprolol resumed at lower dose. NPO for AL for tomorrow. (2) Bacteremia due to methicillin susceptible Staphylococcus aureus (MSSA): Code(s): R78.81 - Bacteremia; B95.61 - Methicillin susceptible Staphylococcus aureus infection as the cause of diseases classified elsewhere Status: Acute Assessment and Plan: Likely from right antecubital fossa wound with cellulitis BCx 02/26/20 positive for MSSA. Repeat BCx on 03/01 negative. Echo 02/28 showing no obvious vegetations. Vancomycin started on 02/26/20 and changed to Oxacillin on 03/08/20 Currently Abx Day 14 (3) Acute respiratory failure: Qualifiers: Respiratory failure complication: hypercapnia Qualified Code(s): J96.02 - Acute respiratory failure with hypercapnia Code(s): J96.00 - Acute respiratory failure, unspecified whether with hypoxia or hypercapnia Status: Acute Assessment and Plan: CXR showing bilateral airspace disease related to bacteremia, morbid obesity, dilated bowels and bacterial versus viral pneumonia. Required mechanical ventilation 02/25-03/04/20 COVID-19 testing negative. Chest x-ray 03/08 showing worsening airspace disease on the right but clinically improving so suspect aelectasis Was on Furosemide 40mg IV bid but changed to oral Lasix 40mg daily on 03/07/20 Continue Incentive spirometry. MBS unable to be obtained. Patient tolerating oral intake without signs/sx of aspiration. Continue oral Lasix for now but consider changing to IV if persistent/worsening respiratory sx Repeat CXR in the morning (4) Sepsis: Qualifiers: Acute respiratory failure type: with hypercapnia Sepsis acute organ dysfunction status: with acute organ dysfunction Sepsis type: sepsis due to unspecified organism Severe sepsis acute organ dysfunction type: acute respiratory failure Severe sepsis shock status: without septic shock Qualified Code(s): A41.9 - Sepsis, unspecified organism; R65.20 - Severe sepsis without septic shock; J96.02 - Acute respiratory failure with hypercapnia Code(s): A41.9 - Sepsis, unspecified organism Status: Acute Assessment and Plan: Sepsis with septicemia: Criteria met on admission. Initial 02/26/20 blood cultures x 2 with MERCEDES. Limited echo 02/29/20 with no obvious vegetation seen and EF 60-65%. Repeat blood cultures on 03/01/2020 negative. Urine culture negative. Sputum culture negative. COVID testing negative as noted. As above; AL planned for tomorrow (5) Congestive heart failure: Qualifiers: Heart failure chronicity: acute on chronic Heart failure type: diastolic Qualified Code(s): I50.33 - Acute on chronic diastolic (congestive) heart failure Code(s): I50.9 - Heart failure, unspecified Status: Chronic Assessment and Plan: CT of the chest on 02/19/2020 showing atelecatasis and small right pleural effusion. Echo on 02/19/20 with EF 50-55%. Limited echo 02/29/20 with EF 60-65% as noted above. Changed to oral Lasix 40mg daily on 03/07/20. Oral potassium added as well. Cr stable at 1.0. Potassium 3.9. Monitor levels. (6) Atrial fibrillation: Qualifiers: Atrial fibrillation type: unspecified chronic Qualified Code(s): I48.20 - Chronic atrial fibrillation, unspecified Code(s): I48.91 - Unspecified atrial fibrillation Status: Chronic Assessment and Plan: Patient with ch
[2020-03-10] MEDS: SIMVASTATIN 20 MG TABLET PO (21:22)
[2020-03-10] MEDS: ALTEPLASE 2 MG VIAL (CATHFLO) IV PUSH (22:11)
[2020-03-10] MEDS: WATER, STERILE FOR INJECTION 10 ML VIAL XX (23:44)
[2020-03-11] VITALS (21 sets, daily range): BP systolic 124–148; BP diastolic 53–88; PULSE 64–121; RESP 18–28; TEMP 35.7–36.6; O2SAT 94–100
[2020-03-11] MEDS: OXACILLIN SODIUM 2 GM in SODIUM CHLORIDE 0.9% IV 100 ML IVPB ×3 (00:55→09:58)
[2020-03-11] MEDS: IPRATROPIUM BR 0.02% INH SOLN 0.5 MG/2.5 ML VIAL INHALATION ×3 (01:58→13:40)
[2020-03-11] MEDS: ALBUTEROL SULFATE NEB 2.5 MG/0.5 ML INH INHALATION ×3 (01:58→13:40)
[2020-03-11 06:16] LABS: Hemoglobin 9.9 g/dL (12.0-15.0); Mean Corpuscular HGB Conc 29.1 g/dl (32-36); Mean Corpuscular Hemoglobin 27.9 pg (26-34); Mean Corpuscular Volume 95.8 fl (80-100); Platelet Count Result 349 k/mm3 (150-375); Red Blood Count 3.55 M/mm3 (4.2-5.4); Red Cell Distribution Width 16.4 % (11.5-14.5); White Blood Count 5.3 K/mm3 (4.5-10.0)
[2020-03-11 06:29] LABS: Blood Urea Nitrogen 16 mg/dL (7-17); Calcium 9.3 mg/dL (8.4-10.2); Carbon Dioxide 35 mmol/L (22-30); Chloride 96 mmol/L (98-107); Estimated CRCL calculation 52 ml/min; Estimated Glomerular Filt Rate 45; Glucose 101 mg/dL (65-105); Magnesium 1.9 mg/dL (1.6-2.3); Potassium 3.8 mmol/L (3.4-5.0); Sodium 137 mmol/L (137-145)
[2020-03-11] MEDS: WATER, STERILE FOR INJECTION 10 ML VIAL XX (07:49)
[2020-03-11] MEDS: METOPROLOL TARTRATE 25 MG TABLET PO (09:57)
--- NOTE | 2020-03-11 10:22 | PCOTNOTE ---
Patient unavailable to be seen at this time for OT, in procedure. Will attempt again later today.
--- NOTE | 2020-03-11 10:23 | WPDANESEPPF ---
Anes - Initial Pre Proc Eval Procedure: Operation Date: 03/11/20 10:30 Proposed Procedures p Trans Esophageal Echo - Larry Simons MD Date/Time: 03/11/20 10:23 Surgeon: Marcella Lewis MD Pre Op Diagnosis: Acute respiratory failure Patient Data Age: 69 Gender: F Height: 5 ft 2 in Weight: 127.4 kg Last Vital Signs Temp 35.7 C L 03/11/20 08:13 Pulse 121 H 03/11/20 09:57 Resp 20 03/11/20 08:28 BP 124/83 03/11/20 08:13 Pulse Ox 97 03/11/20 08:16 Allergies Allergy/AdvReac Type Severity Reaction Status Date / Time levofloxacin [From Levaquin] Allergy Mild Rash Verified 02/12/20 17:10 adhesive tape AdvReac Mild Itching Verified 02/12/20 17:06 Home Medications Medication Instructions Recorded Confirmed Type Ventolin HFA 2 puff INHALATION Q6H PRN 02/12/20 02/26/20 History acetaminophen 650 mg PO Q4H PRN 02/12/20 02/26/20 History apixaban [Eliquis] 5 mg PO BID 02/12/20 02/26/20 History cholecalciferol (vitamin D3) 25 mcg PO DAILY 02/12/20 02/26/20 History ferrous sulfate 325 mg PO DAILY 02/12/20 02/26/20 History furosemide 10 mg PO DAILY 02/12/20 02/26/20 History hydrocodone-acetaminophen 1 tablet PO Q4H PRN 02/12/20 02/26/20 History metoprolol tartrate 12.5 mg PO BID 02/12/20 02/26/20 History polyethylene glycol 3350 17 g PO DAILY 02/12/20 02/26/20 History simvastatin 20 mg PO HS 02/12/20 02/26/20 History Laboratory Tests 03/11/20 03/11/20 05:30 05:45 WBC 5.3 K/mm3 K/mm3 (4.5-10.0) RBC 3.55 M/mm3 L M/mm3 (4.2-5.4) Hgb 9.9 g/dL L g/dL (12.0-15.0) Hct 34.0 % L % (37.0-47.0) MCV 95.8 fl fl (80-100) MCH 27.9 pg pg (26-34) MCHC 29.1 g/dl L g/dl (32-36) RDW 16.4 % H % (11.5-14.5) Plt Count 349 k/mm3 k/mm3 (150-375) MPV 9.0 fl fl (7.4-10.4) Sodium 137 mmol/L mmol/L (137-145) Potassium 3.8 mmol/L mmol/L (3.4-5.0) Chloride 96 mmol/L L mmol/L (98-107) Carbon Dioxide 35 mmol/L H mmol/L (22-30) BUN 16 mg/dL mg/dL (7-17) Creatinine 1.20 mg/dL H mg/dL (0.7-1.0) Estim Creat Clear Calc 52 ml/min ml/min Estimated GFR 45 L (59 - ) Glucose 101 mg/dL mg/dL (65-105) Calcium 9.3 mg/dL mg/dL (8.4-10.2) Magnesium 1.9 mg/dL mg/dL (1.6-2.3) Patient hx anesthesia problems: none Family hx anesthesia problems: none PMFSH Past Medical History Medical History Atrial fibrillation Congestive heart failure DVT (deep venous thrombosis) Hypertension Left humeral fracture Morbid obesity Venous stasis dermatitis Surgical History Surgical History H/O hernia repair Ventral S/P appendectomy Family History Family History Sibling Esophagus cancer Liver disease Heart disease Father Heart disease Mother Heart disease Hypertension Father Hypertension Diabetes mellitus Social History Social History Social History: The patient is . She has 3 sons and 2 daughters. She lives with 1 son. She was independent prior to this fracture. She used to smoke and quit over 30 years ago. Smoking status: Former smoker Tobacco type: cigarettes Second hand tobacco smoke exposure: No Alcohol intake: unknown Substance use: unknown Substance use type: does not use Gender identity (if verbalized by the patient): Female Spiritual care concerns: No Agree to blood products: Yes Raina Zhou Final PreProcedure Day of Procedure 03/11/20 10:23 Patient weight: morbidly obese Heart: regular rate and rhythm Lungs: clear to auscultation Airway: Mallampati scale class III Neurological: alert and oriented Last oral intake: >/= 8 hours ASA classification: IV Emergent: no Anestheti
--- NOTE | 2020-03-11 10:30 | ECHO_ITS ---
Patient Info Name: Trina Larkin Age: 69 years : 1950 Gender: Female Ht: 62 in Wt: 276 lbs BSA: 2.42 m2 HR: 92 bpm BP: 133 / 88 mmHg Heart Rhythm: Atrial Fibrillation Technical Quality: Good Exam Date: 03/11/2020 10:27 AM Exam Location: [facility] Patient Status: Inpatient Admit Date: 02/26/2020 Staff Ordering Physician: Kristi Thakkar APRN Rail Layer: Dylon Walker RDCS Attending Provider: Marcella Frederick MD Referring Physician: Bijan LLANOS; Exam Type: CA echo transesophageal Study Info Indications I39 - Endocarditis and heart valve disorders in diseases classified elsewhere Complete two-dimensional, color flow and Doppler transesophageal study is performed. History/Risk Factors Staph aureus sepsis. Summary 1. Left ventricular chamber dimension is normal. 2. Normal systolic function. 3. Biatrial dilation. 4. Trivial MR. 5. No findings indicative of bacterial endocarditis. Left Ventricle Left ventricular chamber dimension is normal. Left ventricular systolic function is normal with an ejection fraction by Biplane Method of Discs of Empty. Normal systolic function. Right Ventricle Right ventricular chamber dimension is normal. Left Atria Left atrial chamber dimension is moderately enlarged. Right Atria Right atrial chamber dimension is moderately enlarged. Aortic Valve The aortic valve is normal. Pulmonic Valve The pulmonic valve is normal. Mitral Valve The mitral valve has normal leaflets. There is trace mitral valve regurgitation. Tricuspid Valve The tricuspid valve leaflets are normal. Pericardium/Pleural The pericardium appears normal. Inferior Vena Cava Not well visualized inferior vena cava with Empty collapse upon inspiration consistent with Empty right atrial pressure, Empty. Aorta The aortic root size at the sinus of Valsalva is normal. Report Signatures
--- NOTE | 2020-03-11 10:34 | WPDCARDPROC ---
Cardiac Cath Procedure Note Date of procedure:: 03/11/20 Performing physician:: Larry Simons MD Indication:: Rule out endocarditis Brief clinical history:: This is a 69-year-old woman with a history of paroxysmal atrial fibrillation and morbid obesity. She is hospitalized because of staphylococcal sepsis was presumably related to an infected IV site. She had some asystolic pauses last week which were asymptomatic. Because of this the possibility of trivial endocarditis with a staphylococcal perivalvular abscess was entertained and in this setting esophageal echocardiogram has been recommended for today. Procedure Procedure performed:: Transesophageal echocardiogram performed in the post anesthesia care unit with anesthesia Sedation/Medication given:: Per the anesthesia service Estimated blood loss:: No blood loss Procedure note:: The patient was sedated with propofol by the Anesthesia Service. Please see their separately dictated sedation noted. Following sedation transesophageal echocardiogram was performed easily the esophagus was intubated with the AL probe and the images were obtained with excellent quality. The left atrium is moderately dilated. The mitral valve leaflets are normal in appearance there is no abnormality associated with leaflets indicative of any degenerative changes or any infective vegetation. No abscess was identified. The left ventricle is normal in dimension hypertrophied and contracts well. The aortic valve is a normal-appearing trileaflet valve which is thin and pliable. No vegetation or abscess was seen associated with the aortic valve. The aortic root is of normal size. The right-sided chambers unremarkable in appearance other than some right atrial enlargement as well the interatrial septum is completely normal. The tricuspid and pulmonic valves were nicely visualized and are normal. There was a trivial amount of mitral valve regurgitation identified a central jet there were no other valvular regurgitant lesions identified. Findings:: As detailed above no echocardiographic evidence of infective vegetation or perivalvular abscess Conclusion:: As noted above AL is negative for any findings suggestive of bacterial endocarditis Larry Simons MD [facility]
--- NOTE | 2020-03-11 10:37 | PM.PNCARD ---
Progress Note: A&P Additional Plan The patient appears to be clinically stable. She obviously has paroxysmal AFib is rate controlled on her beta-jorje and anticoagulated with apixaban. AL done this morning demonstrates no findings that are indicative of were suggestive of endocarditis nor any perivalvular abscesses are noted. At this point no further cardiac investigation is necessary. Larry Simons MD [facility] Subjective Date/time seen: Date of service: 03/11/20 10:37 Interval history: 69-year-old patient with paroxysmal atrial fibrillation on beta-jorje and apixaban. Concern was raised last week following bradycardic pauses of the possibility of bacterial endocarditis complicating her conduction system. Esophageal echo performed this morning demonstrates completely normal during cardiac valves. There was a trivial amount of MR identified but absolutely no evidence of any vegetation of material nor any evidence of a perivalvular abscess. Exam Const: General: comfortable HENMT: Mouth: Yes moist mucous membranes Eyes: Sclera: sclerae normal Pupils: Equal, round and reactive pupils present Neck: Neck: supple and no JVD Thyroid: thyroid normal Carotids: bruit Resp: Effort & Inspection: normal respiratory effort Auscultation: clear to auscultation bilaterally Cardio: Rhythm: abnormal rhythm irregularly irregular GI: Auscultation: normal bowel sounds Skin: General skin exam: normal color Neuro: Cognition (Neuro): normal cognition Objective Data Vital Signs Vital Signs: Vital Signs - 24 hr 03/10/20 12:00 03/10/20 12:47 03/10/20 14:00 Temperature 36.2 C L Pulse Rate 86 89 82 Respiratory Rate 28 H Blood Pressure 121/94 H Pulse Oximetry 100 03/10/20 15:06 03/10/20 15:14 03/10/20 16:00 Temperature Pulse Rate 82 82 85 Respiratory Rate 20 20 Blood Pressure Pulse Oximetry 03/10/20 17:26 03/10/20 18:00 03/10/20 19:42 Temperature 36.0 C L Pulse Rate 100 96 83 Respiratory Rate 32 H 24 H Blood Pressure 97/62 L Pulse Oximetry 93 95 03/10/20 19:51 03/10/20 20:00 03/10/20 22:00 Temperature 36.4 C L Pulse Rate 86 83 87 Respiratory Rate 22 H 20 Blood Pressure 128/67 Pulse Oximetry 99 03/10/20 23:10 03/11/20 00:00 03/11/20 01:58 Temperature 36.3 C L Pulse Rate 74 84 64 Respiratory Rate 20 20 20 Blood Pressure 129/67 Pulse Oximetry 96 96 03/11/20 02:00 03/11/20 02:07 03/11/20 02:08 Temperature Pulse Rate 76 64 65 Respiratory Rate 20 20 Blood Pressure Pulse Oximetry 97 03/11/20 04:00 03/11/20 06:00 03/11/20 08:13 Temperature 36.6 C 35.7 C L Pulse Rate 71 80 101 H Respiratory Rate 18 27 H Blood Pressure 135/88 124/83 Pulse Oximetry 100 100 03/11/20 08:16 03/11/20 08:19 03/11/20 08:28 Temperature Pulse Rate 101 H 97 Respiratory Rate 24 H 20 Blood Pressure Pulse Oximetry 97 03/11/20 09:57 Temperature Pulse Rate 121 H Respiratory Rate Blood Pressure Pulse Oximetry Intake/Output Intake/Output: Intake & Output 03/08/20 03/09/20 03/10/20 03/11/20 23:59 23:59 23:59 23:59 Intake Total 1670 1989 1426 400 Output Total 1175 600 200 Balance 495 1989 826 200 Meds/Results Medications: Active Medications Generic Name Dose Route Start Last Admin Trade Name Freq PRN Reason Stop Dose Admin Acetaminophen 650 mg 03/07/20 15:07 03/10/20 22:13 Tylenol Tablet PO 650 mg Q4H PRN Administration Pain Albuterol 2.5 mg 03/04/20 14:20 03/11/20 08:20 Albuterol Sulf Neb 2.5mg/0.5ml INHALATION 2.5 mg Q6HRT DEWAYNE Administration Alteplase, Recombinant 2 mg 03/08/20 05:14 03/10/20 22:11 Cathflo Activase IV PUSH 2 mg ONCE PRN Administration Line Occlusion Apixaban 5 mg 03/07/20 09:00 03/07/20 21:31 Eliquis PO 5 mg Q12HR DEWAYNE Administration Dextrose 12.5 gm 02/26/20 17:22 03/06/20 06:04 Dextrose 50% Syringe IV PUSH 12.5 gm PRN PRN Administrat
[2020-03-11] MEDS: ACETAMINOPHEN 325 MG TABLET 650 MG PO ×2 (11:21→17:07)
[2020-03-11] MEDS: CHOLECALCIFEROL 1,000 UNIT TABLET 1000 UNITS PO (11:28)
[2020-03-11] MEDS: POTASSIUM CHLORIDE 20 MEQ TABLET.ER 40 MEQ PO (11:28)
[2020-03-11] MEDS: FUROSEMIDE 40 MG TABLET PO (11:29)
[2020-03-11] MEDS: PANTOPRAZOLE 40 MG TABLET PO (11:30)
[2020-03-11] MEDS: TOLNAFTATE 1% POWDER 45 GM BTL 1 APPLIC TOPICAL (11:31)
--- NOTE | 2020-03-11 13:13 | P.DS_ITS ---
DS: Diagnosis Admitting Diagnosis Admitting Diagnosis: Acute respiratory failure with hypercapnia Discharge Diagnosis (1) Sinus pause: Code(s): I45.5 - Other specified heart block Status: Acute Assessment and Plan: * Patient with up to a 10 sec pause on 03/08/20 and patient was asymptomatic from this * AL performed 03/11 showing no endocarditis * Discussed with cardiology with no plans for pacemeaker (2) Bacteremia due to methicillin susceptible Staphylococcus aureus (MSSA): Code(s): R78.81 - Bacteremia; B95.61 - Methicillin susceptible Staphylococcus aureus infection as the cause of diseases classified elsewhere Status: Acute Assessment and Plan: * Likely from right antecubital fossa wound with cellulitis * BCx 02/26/20 positive for MSSA. Repeat BCx on 03/01 negative. * Echo 02/28 showing no obvious vegetations. * Vancomycin started on 02/26/20 and changed to Oxacillin on 03/08/20 * Currently IV Abx Day 15. (3) Acute respiratory failure: Qualifiers: Respiratory failure complication: hypercapnia Qualified Code(s): J96.02 - Acute respiratory failure with hypercapnia Code(s): J96.00 - Acute respiratory failure, unspecified whether with hypoxia or hypercapnia Status: Acute Assessment and Plan: * CXR showed bilateral airspace disease related to bacteremia, morbid obesity, dilated bowels and bacterial versus viral pneumonia. * Required mechanical ventilation 02/25-03/04/20 * COVID-19 testing negative. * Chest x-ray 03/11 showing improving congestive changes * Was on Furosemide 40mg IV bid but changed to oral Lasix 40mg daily on 03/07/20 * Continue Incentive spirometry. Patient tolerating oral intake without signs/sx of aspiration. * Continue oral Lasix (4) Sepsis: Qualifiers: Acute respiratory failure type: with hypercapnia Sepsis acute organ dysfunction status: with acute organ dysfunction Sepsis type: sepsis due to unspecified organism Severe sepsis acute organ dysfunction type: acute respiratory failure Severe sepsis shock status: without septic shock Qualified Code(s): A41.9 - Sepsis, unspecified organism; R65.20 - Severe sepsis without septic shock; J96.02 - Acute respiratory failure with hypercapnia Code(s): A41.9 - Sepsis, unspecified organism Status: Acute Assessment and Plan: * Sepsis with septicemia: Criteria met on admission. Initial 02/26/20 blood cultures x 2 with MERCEDES. * Limited echo 02/29/20 with no obvious vegetation seen and EF 60-65%. AL confirms no endocarditis. * Repeat blood cultures on 03/01/2020 negative. Urine culture negative. Sputum culture negative. * COVID testing negative. (5) Congestive heart failure: Qualifiers: Heart failure chronicity: acute on chronic Heart failure type: diastolic Qualified Code(s): I50.33 - Acute on chronic diastolic (congestive) heart failure Code(s): I50.9 - Heart failure, unspecified Status: Chronic Assessment and Plan: * CT of the chest on 02/19/2020 showing atelecatasis and small right pleural effusion. * Echo on 02/19/20 with EF 50-55%. Limited echo 02/29/20 with EF 60-65% as noted above. * Changed to oral Lasix 40mg daily on 03/07/20. Oral potassium added as well. (6) Atrial fibrillation: Qualifiers: Atrial fibrillation type: unspecified chronic Qualified Code(s): I48.20 - Chronic atrial fibrillation, unspecified Code(s): I48.91 - Unspecified atrial fibrillation Status: Chronic Assessment and Plan: * Patient with chronic a
--- NOTE | 2020-03-11 13:13 | PM.DS ---
DS: Diagnosis Admitting Diagnosis Admitting Diagnosis: Acute respiratory failure with hypercapnia Discharge Diagnosis (1) Sinus pause: Code(s): I45.5 - Other specified heart block Status: Acute Assessment and Plan: Patient with up to a 10 sec pause on 03/08/20 and patient was asymptomatic from this AL performed 03/11 showing no endocarditis Discussed with cardiology with no plans for pacemeaker (2) Bacteremia due to methicillin susceptible Staphylococcus aureus (MSSA): Code(s): R78.81 - Bacteremia; B95.61 - Methicillin susceptible Staphylococcus aureus infection as the cause of diseases classified elsewhere Status: Acute Assessment and Plan: Likely from right antecubital fossa wound with cellulitis BCx 02/26/20 positive for MSSA. Repeat BCx on 03/01 negative. Echo 02/28 showing no obvious vegetations. Vancomycin started on 02/26/20 and changed to Oxacillin on 03/08/20 Currently IV Abx Day 15. (3) Acute respiratory failure: Qualifiers: Respiratory failure complication: hypercapnia Qualified Code(s): J96.02 - Acute respiratory failure with hypercapnia Code(s): J96.00 - Acute respiratory failure, unspecified whether with hypoxia or hypercapnia Status: Acute Assessment and Plan: CXR showed bilateral airspace disease related to bacteremia, morbid obesity, dilated bowels and bacterial versus viral pneumonia. Required mechanical ventilation 02/25-03/04/20 COVID-19 testing negative. Chest x-ray 03/11 showing improving congestive changes Was on Furosemide 40mg IV bid but changed to oral Lasix 40mg daily on 03/07/20 Continue Incentive spirometry. Patient tolerating oral intake without signs/sx of aspiration. Continue oral Lasix (4) Sepsis: Qualifiers: Acute respiratory failure type: with hypercapnia Sepsis acute organ dysfunction status: with acute organ dysfunction Sepsis type: sepsis due to unspecified organism Severe sepsis acute organ dysfunction type: acute respiratory failure Severe sepsis shock status: without septic shock Qualified Code(s): A41.9 - Sepsis, unspecified organism; R65.20 - Severe sepsis without septic shock; J96.02 - Acute respiratory failure with hypercapnia Code(s): A41.9 - Sepsis, unspecified organism Status: Acute Assessment and Plan: Sepsis with septicemia: Criteria met on admission. Initial 02/26/20 blood cultures x 2 with MERCEDES. Limited echo 02/29/20 with no obvious vegetation seen and EF 60-65%. AL confirms no endocarditis. Repeat blood cultures on 03/01/2020 negative. Urine culture negative. Sputum culture negative. COVID testing negative. (5) Congestive heart failure: Qualifiers: Heart failure chronicity: acute on chronic Heart failure type: diastolic Qualified Code(s): I50.33 - Acute on chronic diastolic (congestive) heart failure Code(s): I50.9 - Heart failure, unspecified Status: Chronic Assessment and Plan: CT of the chest on 02/19/2020 showing atelecatasis and small right pleural effusion. Echo on 02/19/20 with EF 50-55%. Limited echo 02/29/20 with EF 60-65% as noted above. Changed to oral Lasix 40mg daily on 03/07/20. Oral potassium added as well. (6) Atrial fibrillation: Qualifiers: Atrial fibrillation type: unspecified chronic Qualified Code(s): I48.20 - Chronic atrial fibrillation, unspecified Code(s): I48.91 - Unspecified atrial fibrillation Status: Chronic Assessment and Plan: Patient with chronic atrial fibrillation Oral metoprolol 75mg BID stopped today due to prolonged cardiac pauses Was on Heparin drip but switched to apixaban Tachycardia recurred and Metoprolol 25mg BID added back 03/09/20 with improvement in HR and no further major pauses Appreciate Cardiology input. No plans for PM at this time (7) Anemia: Qualifiers: Anemia type: unspecified type Qualified Cod
--- NOTE | 2020-03-11 15:11 | PCOTNOTE ---
The OT treatment was unable to be completed this date. Will continue Plan of care tomorrow, 03/12/20.
[2020-03-11] MEDS: NEOMYCIN/POLYMYXIN/BACITRACIN OINTMENT PACKET 1 PACKET TOPICAL (15:25)
== END 2020-03-11 18:45 | DRG 870 ==
LOC: ANHICU 17:27 → ANHIMU 17:27 → ANHICU 03-02 15:39 → ANHIMU 03-06 14:55
PROVIDERS: Internal Medicine; Physician Assistant; Specialist; Admitting Provider Internal Medicine; PCP Internal Medicine Infectious Disease; Visit Provider Hospitalist
PROC: B24BZZ4 Ultrasonography of Heart with Aorta, Transesophageal (ICD-10-PCS; CPT 93312; principal; 2020-03-11 10:30)
DX: A41.01 Sepsis due to Methicillin susceptible Staphylococcus aureus (principal); R65.21 Severe sepsis with septic shock; J96.02 Acute respiratory failure with hypercapnia; I50.33 Acute on chronic diastolic (congestive) heart failure; J12.9 Viral pneumonia, unspecified; J15.9 Unspecified bacterial pneumonia; L03.115 Cellulitis of right lower limb; Z68.43 Body mass index [BMI] 50.0-59.9, adult; I48.20 Chronic atrial fibrillation, unspecified; K56.7 Ileus, unspecified; E66.01 Morbid (severe) obesity due to excess calories; D64.9 Anemia, unspecified; I87.2 Venous insufficiency (chronic) (peripheral); Z20.828 Contact with and (suspected) exposure to other viral communicable diseases; I45.5 Other specified heart block; S22.059D Unspecified fracture of T5-T6 vertebra, subsequent encounter for fracture with routine healing; S42.302D Unspecified fracture of shaft of humerus, left arm, subsequent encounter for fracture with routine healing; W19.XXXD Unspecified fall, subsequent encounter; Z79.01 Long term (current) use of anticoagulants; Z86.718 Personal history of other venous thrombosis and embolism; Z87.891 Personal history of nicotine dependence
CPT/HCPCS: 36415; 36430; 36569; 36600; 71045; 71046; 74019; 80048; 80053; 80202; 81001; 82274; 82375; 82565; 82607; 82728; 82746; 82805; 83050; 83540; 83550; 83605; 83615; 83735; 84100; 84145; 84478; 84484; 85014; 85018; 85025; 85027; 85380; 85610; 85730; 86140; 86850; 86900; 86901; 86923; 87040; 87070; 87205; 92610; 93005; 93308; 93312; 93320; 93325; 94002; 94003; 94640; 97110; 97116; 97161; 97166; 97530; 97535; A4565; A9270; C1751; C8924; C9113; J0131; J0330; J0456; J0696; J1644; J1940; J2001; J2700; J2704; J2765; J2997; J3370; J3475; J3480; J7030; J7040; J7050; P9016; Q9957

== ENCOUNTER 2020-03-28 07:51 | Inpatient (IN) | payer MEDICARE, MEDICAID, SELFPAY ==
[2020-03-28] VITALS (22 sets, daily range): BP systolic 101–153; BP diastolic 48–111; PULSE 76–159; RESP 16–32; TEMP 36.4–37.1; O2SAT 90–100; BMI 47.5
--- NOTE | ~2020-03-28 | XR_ITS ---
XR chest 1V portable DATE: 03/31/2020 06:20 INDICATION: Bilateral infiltrates TECHNIQUE: Portable AP chest on 03/31/2020 at 0552 hours COMPARISON: 04/09/2020 portable AP chest at 0457 hours FINDINGS: ET tube tip is 1.6 cm above marah. [place] range is 2 x 5 cm. NG tube is noted passing into the stomach. Right internal jugular central venous catheter tip overlies superior vena cava. No pneumothorax is ev ident. There is cardiomegaly. There is pulmonary vascular congestion. There are bilateral infiltrates which predominate centrally and in the lower lung zones, especially on the left where atelectasis/consolida tion in the lower lobe is noted. Mild blunting of the costophrenic angles, consistent with small pleu ral effusions. No pneumothorax. Diffuse osteopenia. IMPRESSION: Little interval change since 04/09/2020 ET tube tip 1.6 cm above marah; ideal range is 205 cm Reviewed, dictated and finalized at location A.
--- NOTE | ~2020-03-28 | CT_ITS ---
EXAMINATION: CT brain wo con DATE: 04/02/2020 12:20 INDICATION: Leg weakness. TECHNIQUE: Computed tomography (CT) of the head was performed without intravenous contrast. The mA wa s adjusted according to patient size. Iterative reconstruction technique was employed. The dose-lengt h product was 605.33 mGy-cm. COMPARISON: None FINDINGS: There are scattered areas of low attenuation in the cerebral white matter. There is no intr acranial hemorrhage, acute infarction, or abnormal intracranial mass lesion. The ventricles are hayder l in size. The paranasal sinuses are clear. The orbits are normal. There is a small right mastoid eff usion. IMPRESSION: 1. Moderate nonspecific cerebral white matter disease, which likely represents chronic small vessel i schemic disease. Reviewed, dictated and finalized at location A. IMPRESSION: 1. Moderate nonspecific cerebral white matter disease, which likely represents chronic small vessel ischemic disease.
--- NOTE | ~2020-03-28 | MR_ITS ---
EXAMINATION: MR lumbar spine wo/w con EXAM DATE: 04/03/2020 15:30 INDICATION: Left leg weakness, bacteremia, history of fracture. TECHNIQUE: Multi-sequential, multiplanar MR images of the lumbar spine were obtained without contrast . Sagittal T1, T2, T2 fat saturation images. Axial T2 weighted images. Axial T1 weighted sequence. Patient was then injected with 20 mL Multihance intravenous contrast and reimaged. Postcontrast axi al and sagittal T1-weighted fat saturation sequences were obtained. FINDINGS: Left renal cystic lesions imaged portions are consistent with cysts. There is moderate lunchroom mother noel compression fracture of the L4 vertebral body. There is a 1 cm hemangioma within the S1 segment. The vertebral bodies are aligned in the AP dimension. The conus medullaris terminates at the L1 level and has normal signal intensity and morphology. Paraspinal soft tissue is unremarkable. There are n o areas of abnormal enhancement on the post contrast images. Level by level evaluation: T12-L1: Disc does not extend beyond the endplate margin. Facet arthropathy: None. Neural foraminal stenosis: No stenosis. Central canal stenosis: No stenosis. L1-L2: Disc does not extend beyond the endplate margin. Facet arthropathy: Mild. Neural foraminal stenosis: No stenosis. Central canal stenosis: No stenosis. L2-L3: There is a mild diffuse disc bulge. Facet arthropathy: Mild. Neural foraminal stenosis: No stenosis. Central canal stenosis: No stenosis. L3-L4: There is a mild to moderate diffuse disc bulge. Facet arthropathy: Mild to moderate. Neural foraminal stenosis: Mild bilateral. Central canal stenosis: Mild to moderate. L4-L5: [id number] Facet arthropathy: Mild to moderate. Neural foraminal stenosis: Mild to moderate bilateral. Central canal stenosis: Mild to moderate. L5-S1: There is a mild diffuse disc bulge. Facet arthropathy: Mild. Neural foraminal stenosis: Mild to moderate left. Central canal stenosis: Mild. IMPRESSION: 1. No acute lumbar findings. 2. Mild to moderate lumbar spondylosis. Reviewed, dictated and finalized at location A.
--- NOTE | ~2020-03-28 | XR_ITS ---
EXAMINATION: XR chest 1V portable DATE: 04/03/2020 06:02 INDICATION: Acute respiratory failure. TECHNIQUE: A single frontal view of the chest was obtained. COMPARISON: Chest single view 04/02/2020, chest CT 02/19/2020 FINDINGS: Sensitivity is decreased by obesity. The patient's rotated to her left. There are small ple ural effusions. There are airspace opacities in the perihilar regions and at the lung bases. No pneum othorax. Cardiomegaly is noted. A right internal jugular central venous catheter is seen with tip in the superior vena cava. IMPRESSION: 1. Stable airspace opacities in the perihilar regions and at the lung bases, consistent with atelecta sis versus pneumonia. 2. Stable small pleural effusions. 3. Cardiomegaly. Reviewed, dictated and finalized at location A. IMPRESSION: 1. Stable airspace opacities in the perihilar regions and at the lung bases, co nsistent with atelectasis versus pneumonia. 2. Stable small pleural effusions. 3. Cardiomegaly.
--- NOTE | ~2020-03-28 | XR_ITS ---
EXAMINATION: XR chest ET placement EXAM DATE: 03/28/2020 16:19 INDICATION: Respiratory failure. TECHNIQUE: Portable AP frontal chest x-ray was obtained. Comparison is made to prior examination from earlier same date. FINDINGS: Patient has been intubated. Endotracheal tube tip is 0.5 centimeters above the marah . T his can be safely retracted 1-2 cm. There is a feeding tube with tip poorly visualized on this study but in expected position on KUB obtained at same time. There is a right-sided IJ central venous line. There is right suprahilar 3 cm masslike opacity, could be pneumonia but cancer not excludable. There is less well-defined bilateral edema and/or pneumonia. Small pleural effusions. There is no pneumot horax suspected. Cardiac silhouette is enlarged but stable in size compared to prior exam. The rajwinder maddie and soft tissues are unremarkable. There is no significant interval change compared to prior exa m. IMPRESSION: 1. ET tube tip above marah, could be retracted 1-2 cm. 2. Stable airspace disease and other findings as above. Reviewed, dictated and finalized at location A.
--- NOTE | ~2020-03-28 | XR_ITS ---
EXAMINATION: XR chest 1V portable DATE: 04/01/2020 05:48 INDICATION: Bilateral infiltrates. TECHNIQUE: A single frontal view of the chest was obtained. COMPARISON: Chest single view 03/31/2020, 02/17/2020, chest CT 02/19/2020 FINDINGS: Sensitivity is decreased by obesity. There are small pleural effusions. There are airspace opacities at the lung bases. No pneumothorax. Cardiomegaly is noted. A right internal jugular central venous catheter is seen with tip in the superior vena cava. There is an old healed fracture of proxi mal right humerus. There is a subacute fracture of proximal left humerus. There are old healed bilate ral rib fractures. IMPRESSION: 1. Unchanged airspace opacities at the lung bases, consistent with atelectasis versus pneumonia. 2. Unchanged small pleural effusions. 3. Cardiomegaly. Reviewed, dictated and finalized at location A.
--- NOTE | ~2020-03-28 | XR_ITS ---
EXAMINATION: XR abdomen NG/feed tube insert EXAM DATE: 03/28/2020 16:19 INDICATION: ET tube placement. TECHNIQUE: Frontal projection(s) of the abdomen for interpretation. Comparison is made to prior exami nation from 03/05/2020. FINDINGS: Feeding tube tip projects in gastric antral region, adequate location. Nonobstructive malu l gas pattern. Moderate amount of colonic gas. There is right-sided common iliac venous stent. There are no osseous abnormalities identified. IMPRESSION: Feeding tube in position. Reviewed, dictated and finalized at location A. IMPRESSION: Feeding tube in position.
--- NOTE | ~2020-03-28 | XR_ITS ---
EXAMINATION: XR chest 1V portable DATE: 03/28/2020 09:07 INDICATION: Shortness of breath TECHNIQUE: frontal view of the chest was obtained. COMPARISON: Chest radiograph dated 03/11/2020 FINDINGS: Evaluation is somewhat limited by patient body habitus. Gradient of hazy lower lung predominant opaci ties throughout both lungs. Blunting at the bilateral costophrenic angles consistent with the presenc e of pleural effusion. No pneumothorax. Cardiomegaly. IMPRESSION: 1. Opacities in the bilateral lungs consistent with small bilateral posteriorly layering pleural effu sions and associated atelectasis and/or pneumonia. 2. Cardiomegaly. Reviewed, dictated and finalized at location A. IMPRESSION: 1. Opacities in the bilateral lungs consistent with small bilateral posteriorly layering pleural effusions and associated atelectasis and/or pneumonia. 2. Cardiomegaly.
--- NOTE | ~2020-03-28 | XR_ITS ---
EXAMINATION: XR chest 1V portable DATE: 04/02/2020 05:56 INDICATION: Bilateral infiltrates. TECHNIQUE: A single frontal view of the chest was obtained. COMPARISON: Chest single view 04/01/2020 FINDINGS: Sensitivity is decreased by obesity. There are airspace opacities in the perihilar regions and at the lung bases. There are small pleural effusions. No pneumothorax. Cardiomegaly is noted. A r ight internal jugular central venous catheter is seen with tip in the superior vena cava. There is an old healed fracture of proximal right humerus. IMPRESSION: 1. Stable airspace opacities in the perihilar regions and at the lung bases, consistent with atelecta sis versus pneumonia. 2. Stable small pleural effusions. 3. Cardiomegaly. Reviewed, dictated and finalized at location A. IMPRESSION: 1. Stable airspace opacities in the perihilar regions and at the lung bases, co nsistent with atelectasis versus pneumonia. 2. Stable small pleural effusions. 3. Cardiomegaly.
--- NOTE | ~2020-03-28 | XR_ITS ---
EXAMINATION: XR chest 1V portable DATE: 03/29/2020 05:31 INDICATION: Bilateral pulmonary infiltrates TECHNIQUE: frontal view of the chest was obtained. COMPARISON: Chest radiograph dated 03/28/2020 FINDINGS: Endotracheal tube tip 2.2 cm above the marah. Right internal jugular central venous catheter with di stal tip in the mid superior vena cava. Nasogastric tube extends below the left hemidiaphragm with d istal tip collimated off the study. Persistent retrocardiac consolidation in the left lower lung zone. Slightly improved aeration at the right lung base with decrease in the less dense opacities in the right lower lung zone. Persistent mo re dense right suprahilar opacity. Blunting at the bilateral costophrenic angles. Cardiomegaly. Chron ic fracture deformity proximal right humerus. IMPRESSION: 1. Bilateral airspace opacities which could represent atelectasis and/or pneumonia. 2. Small bilateral pleural effusions with slight decrease on the right. 3. Cardiomegaly. Reviewed, dictated and finalized at location A. IMPRESSION: 1. Bilateral airspace opacities which could represent atelectasis and/or pneumo aida. 2. Small bilateral pleural effusions with slight decrease on the right. 3. Cardiomegaly.
--- NOTE | ~2020-03-28 | MR_ITS ---
EXAMINATION: MR thoracic spine wo/w con DATE: 04/04/2020 13:16 INDICATION: Left leg weakness. TECHNIQUE: Magnetic resonance imaging (MRI) of the thoracic spine was performed without and with 20 m L MultiHance intravenous contrast. Sequences included sagittal and axial T2-weighted FSE, sagittal ST IR FSE, and sagittal and axial T1-weighted FSE. Postcontrast sequences included sagittal and axial T1 -weighted FS FSE. COMPARISON: Chest CT 02/19/2020 FINDINGS: There is 10 degrees dextroscoliosis of thoracic spine. There is kyphosis of thoracic spine. There are burst fractures of T5, T6, and T7 with 3/5, 4/5, and 2/5 loss of height, respectively. The se levels demonstrate bone marrow edema, bone marrow contrast enhancement, and epidural tissue enlarg ement and enhancement, consistent with inflammation. There is mildly decreased disc height at T5-T6. There is moderate to severely decreased disc height at T6-T7 and T7-T8 with increased disc T2-weighte d signal intensity. There is mildly decreased disc height at T8-T9 and T9-T10. The discs do not exten d beyond the endplate margins. There is multilevel facet joint osteoarthritis, mild at most levels. T here is moderate to severe neural foraminal stenosis bilaterally at T5-T6, T6-T7, and T7-T8. There is severe central canal stenosis at T5-T6 with ventral and dorsal indentation of the spinal cord. There is increased T2-weighted signal intensity in the spinal cord from T4 to T7 with focal contrast enhan cement at T5. There are small pleural effusions. IMPRESSION: 1. Burst fractures of T5, T6, and T7 with worsening from 02/19/2020. 2. Abnormal spinal cord from T4 to T7, consistent with contusion. 3. Small pleural effusions. Reviewed, dictated and finalized at location A.
--- NOTE | ~2020-03-28 | XR_ITS ---
XR chest 1V portable DATE: 03/30/2020 06:11 INDICATION: Bilateral infiltrates TECHNIQUE: Portable AP chest on 04/09/2020 at 0457 hours COMPARISON: 03/29/2020 portable AP chest at 0507 hours FINDINGS: Tip of ET tube is approximately 1.5 cm above marah. Woodworth range is 2-5 cm. NG tube in stomach. Cardiomegaly. Aortic calcification. There is pulmonary vascular congestion and redistribution. There are bilateral predominantly central and right mid and bilateral lower lung infiltrates and/or atelectasis. Diffuse osteopenia. Old right surgical humeral neck fracture deformity. Suggestion of a more recent l eft surgical neck humeral fracture, although this area is not optimally demonstrated. Prominent dextroscoliosis of the thoracolumbar spine and degenerative change. IMPRESSION: Persistent congestive changes and bilateral infiltrates, relatively stable since 0 Reviewed, dictated and finalized at location A. IMPRESSION: Persistent congestive changes and bilateral infiltrates, relatively stable since 04/08/2020
--- NOTE | 2020-03-28 08:02 | ECG_ITS ---
Measurements Intervals [place] Rate: 140 P: ID: 0 QRS: -20 QRSD: 105 T: 133 QT: 329 QTc: 503 Interpretive Statements ATRIAL FIBRILLATION WITH RAPID VENTRICULAR RESPONSE VENTRICULAR PREMATURE COMPLEX INCOMPLETE RIGHT BUNDLE BRANCH BLOCK ST-T WAVE ABNORMALITY IN HIGH LATERAL LEADS- CONSIDER ISCHEMIA BASELINE WANDER- I, II, AVR, V2 ABNORMAL ECG Electronically Signed On 03-28-2020 8:17:43 CDT by Mike Carrasquillo D.O.
--- NOTE | 2020-03-28 08:12 | ED.SOB ---
HPI - SOB/Dyspnea General Chief Complaint: Shortness of Breath/Dyspnea Stated Complaint: Increased confusion History of Present Illness HPI Narrative: 69 yo female w/ h/o CHF, MSSA sepsis, DVT, atrial fibrillation BIBEMS from for c/o increasing SOB and confusion. SHe was recently hospitalized here for acute respiratory failure and sepsis. SHe was found to have MSSA bacteremia thought 2/2 a leg wound. She was also in respiratory failure and has been on 2 liters O2 since that time. Today she was noted to be more SOB than usual and required her O2 to be turned up to 4 liters to maintain saturation >90%. They also noted that she semed to be more confused, although on arrival here she is fully oriented. Related Data Home Medications Medication Instructions Recorded Confirmed Eliquis 5 mg PO BID 02/12/20 03/28/20 acetaminophen 650 mg PO Q4H PRN 02/12/20 03/28/20 cholecalciferol (vitamin D3) 25 mcg PO DAILY 02/12/20 03/28/20 ferrous sulfate 325 mg PO DAILY 02/12/20 03/28/20 albuterol sulfate [Ventolin HFA] 2 puff INHALATION Q6H PRN 03/28/20 03/28/20 ammonium lactate 1 applic TOPICAL DAILY 03/28/20 03/28/20 atorvastatin 10 mg PO DAILY 03/28/20 03/28/20 cyclobenzaprine 5 mg PO BID 03/28/20 03/28/20 tramadol 50 mg PO Q6H 03/28/20 03/28/20 Allergies Allergy/AdvReac Type Severity Reaction Status Date / Time levofloxacin [From Levaquin] Allergy Mild Rash Verified 03/28/20 08:41 adhesive tape AdvReac Mild Itching Verified 03/28/20 08:41 TaperDex Allergy Unknown Uncoded 03/28/20 11:59 Review of Systems Review of Systems: All systems reviewed & are unremarkable except as noted in HPI and below Cardiovascular: Cardiovascular: Denies chest pain Respiratory: Respiratory: Reports chest congestion and Reports dyspnea Gastrointestinal: Gastrointestinal: Denies abdominal pain Genitourinary: Genitourinary: Denies dysuria Musculoskeletal: Musculoskeletal: Reports back pain PMFSH Past Medical History Medical History Atrial fibrillation Congestive heart failure DVT (deep venous thrombosis) Hypertension Left humeral fracture Morbid obesity Sepsis due to methicillin susceptible Staphylococcus aureus (MSSA) with acute hypercapnic respiratory failure Venous stasis dermatitis Surgical History Surgical History H/O hernia repair Ventral S/P appendectomy Family History Family History Sibling Esophagus cancer Liver disease Heart disease Father Heart disease Mother Heart disease Hypertension Father Hypertension Diabetes mellitus Social History Social History Social History: The patient is . She has 3 sons and 2 daughters. She lives with 1 son. She was independent prior to this fracture. She used to smoke and quit over 30 years ago. Smoking status: Unknown if ever smoked Tobacco type: cigarettes Second hand tobacco smoke exposure: No Alcohol intake: unknown Substance use: unknown Substance use type: does not use Gender identity (if verbalized by the patient): Female Spiritual care concerns: No Agree to blood products: Yes Exam Const: General: alert and ill appearing acutely and chronically Nutritional Appearance: obese Orientation/consciousness: patient oriented x3 HENMT: Head: normal to inspection Resp: Effort & Inspection: tachypneic Auscultation: rhonchi Other: Somewhat limited due to obesity and immobility. Cardio: Rate: tachycardic Rhythm: abnormal rhythm irregularly irregular GI: GI Palp: Yes Soft to palpation and No Tenderness to palpation present (GI) Skin: Other: venous stasis changes in lower extremities. Healing wound to right ankle. Neuro: General: patient oriented x3, moves all extremities, no focal motor deficits and CN's II-XI intact bilat
[2020-03-28] MEDS: METOPROLOL TARTRATE INJ 5 MG/5 ML VIAL IV PUSH (08:53)
[2020-03-28 09:16] LABS: Basophils Percent Auto 0.3 % (0.2-1.2); Eosinophils Percent Auto 0.3 % (0-4.4); Hematocrit 30.6 % (37.0-47.0); Hemoglobin 8.9 g/dL (12.0-15.0); Immature Granulocyte Absolute 0.06 K/mm3 (0.00-0.031); Immature Granulocyte Percent A 0.5 % (0-0.5); Lymphocytes Percent Auto 8.6 % (18.3-44.2); Mean Corpuscular HGB Conc 29.1 g/dl (32-36); Mean Corpuscular Hemoglobin 29.4 pg (26-34); Mean Platelet Volume 10.2 fl (7.4-10.4); Monocytes Absolute Auto 1.6 K/mm3 (0.1-0.6); Monocytes Percent Auto 13.4 % (2.6-8.5); Neutrophils Absolute Auto 8.9 K/mm3 (1.3-6.7); Neutrophils Percent Auto 76.9 % (45.5-73.1); Platelet Count Result 278 k/mm3 (150-375); Red Blood Count 3.03 M/mm3 (4.2-5.4); Red Cell Distribution Width 17.3 % (11.5-14.5); White Blood Count 11.6 K/mm3 (4.5-10.0)
[2020-03-28 09:20] LABS: Add Urine Microscopic? YES; Appearance Urine Clear (Clear); Bilirubin Urine Negative (Negative); Blood Urine Negative (Negative); Color Urine Yellow (Yellow); Glucose Urine UA Negative (Negative); Ketones Urine Trace mg/dL (Negative); Leukocyte Esterase Ur Negative LEU/UL (Negative); Mucus Urine Few /lpf; Nitrate Urine Negative (Negative); Protein Urine 1+ mg/dL (Negative); Specific Grav Ur 1.026 (1.001-1.035); Squamous Epithelial Cell Urine Rare /hpf (Few); Urobilinogen Urine Negative mg/dL (<2.0); WBC Urine 0-3 /hpf
[2020-03-28 09:27] LABS: Lactic Acid Reflex 0.9 mmol/L (0.7-2.1)
[2020-03-28 09:29] LABS: INR 1.5; Prothrombin Time 18.1 Seconds (11.1-14.7)
[2020-03-28 09:30] LABS: Partial Thromboplastin Time 38.3 SECONDS (22.3-36.8)
[2020-03-28 09:34] LABS: Alanine Aminotransferase 11 U/L (4-35); Albumin Level 3.6 g/dL (3.5-5.1); Alkaline Phosphatase 106 U/L (38-126); Aspartate Amino Transferase 19 U/L (14-36); Bilirubin,Total 0.8 mg/dL (0.2-1.3); Blood Urea Nitrogen 14 mg/dL (7-17); Calcium 9.3 mg/dL (8.4-10.2); Carbon Dioxide 38 mmol/L (22-30); Chloride 97 mmol/L (98-107); Estimated Glomerular Filt Rate > 60; Glucose 92 mg/dL (65-105); Potassium 4.7 mmol/L (3.4-5.0); Sodium 138 mmol/L (137-145)
[2020-03-28 09:40] LABS: NT Pro B Type Natriuretic Pept 4540 PG/ML (5-100); Troponin I < 0.012 ng/mL (0.000-0.034)
[2020-03-28] MEDS: FUROSEMIDE INJ 40 MG/4 ML VIAL IV PUSH (09:44)
--- NOTE | 2020-03-28 09:59 | PC.NURSE ---
This RN in room with patient, patient states don't feel good need to have a bowel movement cant. Pt speaking in 2-3 word sentences, increased shortness of breath noted, patient diaphoretic, clammy and cool to touch. Pt repositioned to help breathing, patient still c/o increased SOB and not feeling well . Pt was placed on bedpan by this RN, but never attempted, no straining noted, Pt laying in bed. appears to have increased restlessness, work of breathing, and discomfort. RN checked patient's temp, 98.6 oral. EDP notified of change in patient's condition.
[2020-03-28 10:02] LABS: CRP 31.8 mg/dL (<1.0)
[2020-03-28 10:32] LABS: Alveolar/Arterial O2 Gradient 59.6 mmHg; Base Excess ABG 9.1 mEq/l (+/-2.0); Fractional Inspired Oxygen 40 %; HCO3 ABG 36.9 mEq/l (22.0-26.0); Oxygen Content ABG 15.7 %vol (16.0-22.0); Oxygen Saturation ABG 98.7 % (95.0-100.0); Oxyhemoglobin 97.6 % THb (90.0-100.0); PO2 ABG 146.7 mmHg (80.0-100.0); PO2 FiO2 Ratio Arterial Blood 3.67 %; Total Hemoglobin 11.2 g/dL (12.0-18.0); pH ABG 7.348 (7.350-7.450)
[2020-03-28 10:33] LABS: PCO2 ABG 68.6 mmHg (35.0-45.0)
[2020-03-28 10:34] LABS: Device NASAL CANNULA; Modified Allen's Test Pass; Site Drawn RIGHT RADIAL
[2020-03-28] MEDS: AMIODARONE 150 MG/D5W 100 ML 150 MG/100 ML BAG 600 MG IV CONT (11:04)
[2020-03-28] MEDS: NITROGLYCERIN OINTMENT 1 INCH DOSE TRANSDERM (11:07)
[2020-03-28] MEDS: AMIODARONE 360 MG/D5W 200 ML 360 MG/200 ML BAG 33.3 MG IV CONT (11:15)
--- NOTE | 2020-03-28 11:57 | ADMGEN ---
This patient, Trina Larkin, was admitted to Intensive Care Unit-1. Patient/family oriented to hospital policies and general routines including ID bracelet, bed and alarms, visiting hours, pain management, procedures, bathroom and other care routines, personal items, smoking policy, room service/diet, and visiting hours. Valuables list has been completed. Information on how to activate the Rapid Response Team has been discussed. Patient/Family are encouraged to report perceived risks to care and to ask questions if they do not understand what they are told or what they should do.
--- NOTE | 2020-03-28 12:36 | WPDCNINT ---
Assessment and Plan Assessment and plan (1) Acute respiratory failure: Qualifiers: Respiratory failure complication: hypercapnia Qualified Code(s): J96.02 - Acute respiratory failure with hypercapnia Code(s): J96.00 - Acute respiratory failure, unspecified whether with hypoxia or hypercapnia Status: Acute Assessment and Plan: patient presented with increasing shortness of breath confusion from the [facility] 03/28/2020. ABG showed hypercapnic respiratory failure - no BiPAP as patient is being tested for COVID-19 - SARS-CoV-2 PCR has been sent and pending - patient currently on 4 L nasal cannula with good O2 sats. - Patient not moving much air, will give a dose of Solu-Medrol and start bronchodilators - continue ceftriaxone and azithromycin for possible pneumonia (2) Atrial fibrillation: Qualifiers: Atrial fibrillation type: unspecified chronic Qualified Code(s): I48.20 - Chronic atrial fibrillation, unspecified Code(s): I48.91 - Unspecified atrial fibrillation Status: Chronic Assessment and Plan: patient with history of AFib, now in AFib RVR, patient started on amiodarone infusion after a bolus of amiodarone in the ED. - continue to monitor heart rate - Echocardiogram 02/19/2020, was poor quality exam, EF 50-55% - continue Eliquis (3) Hypertension: Qualifiers: Hypertension type: essential hypertension Qualified Code(s): I10 - Essential (primary) hypertension Code(s): I10 - Essential (primary) hypertension Status: Chronic Assessment and Plan: patient with hypertension, patient started on nitroglycerin paste. Was also given metoprolol IV, systolic blood pressures have improved - added hydralazine p.r.n. IV - continue to monitor (4) Venous stasis dermatitis: Qualifiers: Laterality: right Qualified Code(s): I87.2 - Venous insufficiency (chronic) (peripheral) Code(s): I87.2 - Venous insufficiency (chronic) (peripheral) Status: Acute Assessment and Plan: chronic venous stasis changes bilateral lower extremities, (5) Morbid obesity: Code(s): E66.01 - Morbid (severe) obesity due to excess calories Status: Acute Assessment and Plan: will discuss with patient regarding weight loss, will have It Auditor evaluate the patient (6) DVT prophylaxis: Code(s): Z29.9 - Encounter for prophylactic measures, unspecified Status: Acute Assessment and Plan: DVT prophylaxis: In currently on Eliquis which will continue (7) Dietary counseling and surveillance: Code(s): Z71.3 - Dietary counseling and surveillance Status: Acute Assessment and Plan: for now will keep patient ice chips and sips with medications. If her symptoms worsen we may have to place her on a breathing machine/ventilator Additional Plan discussed with and updated her with her condition and plan of care. I answered all questions. She initiates stated she did not want the breathing tube but 1 to be a full code with CPR if the need arises. After that she discuss with the bedside nurse and decided that she wants to be intubated and placed on a breathing machine if needed code status: Full code Critical care time spent:51 minutes Due to a high probability of clinically significant, life threatening deterioration, the patient required my highest level of preparedness to intervene emergently and I personally spent this critical care time directly and personally managing the patient. This critical care time included obtaining a history; examining the patient; pulse oximetry; ordering and review of studies; arranging urgent treatment with development of a management plan; evaluation of patient's response to treatment; frequent reassessment; and discussions with other providers. It was exclusive of separately billable procedures and treating other patients and teaching time. P
[2020-03-28] MEDS: methylPREDNISolone SOD SUCC 125 MG VIAL IV PUSH (13:00)
--- NOTE | 2020-03-28 15:47 | PM.IMHP ---
H&P: HPI History of Present Illness Chief complaint: Acute on chronic respiratory failure/sepsis Narrative: Trina Larkin is a 69 year old female who had been admitted here back in February. Patient was in [facility] at that time. She was recovering from a thoracic inlet humeral fracture after fall on 02/12/2020. Patient was transferred to [facility] or orthopedic and neurosurgeon. She is fitted for TLSO brace at that time. Patient developed respiratory arrest at that time was intubated and a central line was placed at that time. The patient became short of breath. She was showing some infiltrates bilaterally on the chest x-ray and is a rule out covid 19. She does have a past history of atrial fibrillation, congestive heart failure, DVT on chronic Eliquis, hypertension, left humeral fracture. Patient has been at [facility] where she was admitted on 03/11/2020 she was admitted for MSSA bacteremia, acute hypercapnic respiratory failure, she was covid 19 negative at that time. Today patient had her oxygen turn up to 4 L to maintain her O2 saturations greater than 90%. She seemed more confused today. In the emergency room she was more orientated. White count was noted to be 11.6. Hemoglobin 8.9. Platelets 278. INR is 1.5. Her pH on arterial blood gases 7.34 pCO2 was 60.6 PO2 was 140, HC03 36, and O2 saturations 98%. Patient had been on 5 L per nasal cannula. C reactive protein is 38.1. ProBNP 4540. Troponin is normal x1. The patient was hypertensive in placed on nitro glycerin paste. She was transferred to ICU for further management. She was examined by the steel spar operator. Who found her to be awake alert orientated x3. She still complained of shortness of breath. She remains in AFib with RVR with a heart rate 100-125. Patient was given Lasix in the emergency room. Patient is currently intubated and had a central line placed for steel spar operator. Patient was not able to use a BiPAP at this time due to the testing for covid 19. Patient was given a bolus of amiodarone in the emergency room. Date of service 03/28/2020 the patient was started on a Zithromax and Rocephin for community-acquired pneumonia. Review of Systems Review of Systems: Narrative: Unable to obtain information from the patient she is intubated. All systems reviewed & are unremarkable except as noted in HPI and below ROS unobtainable: Yes unobtainable due to endotracheal tube Constitutional: Constitutional: Reports as per HPI and Reports no additional constitutional complaints Eyes: Eyes: Reports as per HPI and Reports no additional eye complaints ENT: Reports system reviewed and no additional complaints, except as documented and Reports Normal hearing present Cardiovascular: Cardiovascular: Reports no additional cardiovascular complaints Respiratory: Respiratory: Reports no additional respiratory complaints and Reports no additional respiratory complaints Gastrointestinal: Gastrointestinal: Reports as per HPI and Reports no additional gastrointestinal complaints Musculoskeletal: Musculoskeletal: Reports no additional musculoskeletal complaints Integumentary/Breasts: Skin/Breast: Reports system reviewed and no additional complaints, except as docu and Reports as per HPI Neurologic: Reports system reviewed and no additional complaints, except as documented, Reports as per HPI and Reports Normal hearing present Psychiatric: Psychiatric: Reports no additional psychiatric complaints and Reports as per HPI Endocrine: Endocrine: Reports no additional endocrine complaints Hematologic/Lymphatic: Hematologic/Lymphatic: Reports no additional hematologic/lymphatic complaints Allergic/Immunologic: Allergic/Immunologic: Reports no additional allergic/immunologic complaints [facility] Past Medical History Medical History Atrial fibrillation Congestive heart failure DVT (deep venous thrombosis) Hypertension Left humeral fracture Morbid
[2020-03-28 16:27] LABS: Alveolar/Arterial O2 Gradient 178.4 mmHg; Base Excess ABG 9.7 mEq/l (+/-2.0); Fractional Inspired Oxygen 60 %; HCO3 ABG 33.5 mEq/l (22.0-26.0); Oxygen Content ABG 13.2 %vol (16.0-22.0); Oxygen Saturation ABG 99.5 % (95.0-100.0); Oxyhemoglobin 98.1 % THb (90.0-100.0); PCO2 ABG 42.2 mmHg (35.0-45.0); PO2 FiO2 Ratio Arterial Blood 3.38 %; Total Hemoglobin 9.2 g/dL (12.0-18.0)
[2020-03-28 16:28] LABS: pH ABG 7.517 (7.350-7.450)
[2020-03-28 16:29] LABS: Arterial Blood Gas Vent Mode CMV; Arterial Blood Gas Ventilator rate 18 /MIN; Device VENTILATOR; Site Drawn LEFT BRACHIAL
[2020-03-28 16:30] LABS: Arterial Blood Gas PEEP 5 cmH2O; Arterial Blood Gas Pressure Support 0 cmH2O; Arterial Blood Gas Tidal Volume 330 ml
[2020-03-28 17:01] LABS: SARS-CoV-2 RNA PCR Negative
[2020-03-28] MEDS: polyethylene glycoL 3350 17 GM POWD.PACK PO (17:41)
[2020-03-28] MEDS: METOPROLOL TARTRATE 25 MG TABLET PO ×2 (17:42→21:56)
[2020-03-28] MEDS: ATORVASTATIN 10 MG TABLET PO (17:42)
[2020-03-28] MEDS: SODIUM CHLORIDE 0.9% IV 1,000 ML 50 ML IV CONT (17:43)
[2020-03-28] MEDS: AMIODARONE 360 MG/D5W 200 ML 360 MG/200 ML BAG 16.7 MG IV CONT (17:45)
[2020-03-28] MEDS: TOLNAFTATE 1% POWDER 45 GM BTL 1 APPLIC TOPICAL ×2 (17:49→21:57)
[2020-03-28] MEDS: APIXABAN 5 MG TABLET PO (17:59)
--- NOTE | 2020-03-28 20:01 | ADMGEN ---
This patient, Trina Larkin, was admitted to Intensive Care Unit-1 @1815. Patient/family oriented to hospital policies and general routines including ID bracelet, bed and alarms, visiting hours, pain management, procedures, bathroom and other care routines, personal items, smoking policy, room service/diet, and visiting hours. Valuables list has been completed. Information on how to activate the Rapid Response Team has been discussed. Patient/Family are encouraged to report perceived risks to care and to ask questions if they do not understand what they are told or what they should do.
--- NOTE | 2020-03-28 23:18 | P.PCNBED_ITS ---
Procedures Intubation Intubation Date: 03/28/20 Intubation Time: 14:05 A pre-procedural Time-Out was completed immediately before starting the procedure and confirmed: Patient Identification, Site, Procedure, Patient Position and the Availability of Requisite Equipment: Yes Sedative: etomidate Paralytic: succinylcholine Laryngoscope: fiber optic video scope Assist device used: fiber optic device ET tube size: cuffed Tube secured depth (cm): 23 Tube secured location: lips Tube placement confirmation: visualized tube passing through cords, equal breath sounds bilaterally, no breath sounds over epigastrium and confirmation by capnometry Patient tolerated procedure: well Intubation complications: none Additional comments: After obtaining consent from the Patient and Daughter (OSKAR) and explaining the rationale for intubation. it was decided to go ahead and intubate the patient. The patient was lying in the supine position. Preoxygenation via BVM was provided for a minimum of 3 minutes. The patient had continuous cardiac as well as pulse oximetry monitoring during the procedure. Rapid sequence induction was provided by administration of Etomidate and Succinylcholine. A Glidescope blade 4 was used to directly visualize the vocal cords. A 7.5 mm endotracheal tube was visualized advancing between the cords to a level of 23 cm at the lip. The stylette was then removed. Tube placement was also noted by fogging in the tube, equal and bilateral breath sounds, no sounds over the epigastrium, and end-tidal colorimetric monitoring. The cuff was then inflated with 10 ml of air and the t ube secured using a commercially available device. A good pulse oximetry wave form was seen on the monitor throughout the procedure. The patient was then connected to the ventilator at a tidal volume of 330 ml; rate of 18; FiO2 of 60%; and PEEP of 5. A portable chest x-ray has been ordered for placement. Continued sedation will be provided by Fentanyl and Versed continuous infusion titrated to a RASS of -2. The patient tolerated the procedure well.
--- NOTE | 2020-03-28 23:21 | WPDPROCEDUR ---
Procedures Central Line Placement Right IJ: Central Line Date: 03/28/20 Central Line Time: 14:26 Discussed w/ the patient/family/POA,the placement of a central venous catheter, including its clinical necessity/indication & associated potential risks, benifits and alternatives.: Yes The patient/family/POA understand(s) and acknowledge(s) the need to proceed with central venous catheter insertion as an important element of the patient's clinical management.: Yes Time Out Performed: Yes Patient Position: supine Patient placed on monitor/pulse ox: Yes Provider Prep: mask, sterile gown, sterile gloves, Max. sterile barrier precautions and hand hygiene Central line prep: Chlorhexidine scrub Local anesthesia used: lidocaine 1% Amount of anesthesia used (ml): 3 Ultrasound used for placement: Yes Central line lumen inserted: triple Japanese: 16 Length (cm): 16 Depth of Insertion (cm): 13 Post procedure: sutured in place, good blood return, all ports aspirated, flushed, capped, tegaderm, hemostatic disc, antimicrobial disc and aseptic technique maintained throughout procedure Post procedure x-ray: tip of catheter in good position Patient tolerated procedure: well Complications: none
--- NOTE | 2020-03-28 23:25 | WPDPROCEDUR ---
Procedures Central Line Placement Right IJ: Central Line Date: 03/28/20 Central Line Time: 14:26 Discussed w/ the patient/family/POA,the placement of a central venous catheter, including its clinical necessity/indication & associated potential risks, benifits and alternatives.: Yes The patient/family/POA understand(s) and acknowledge(s) the need to proceed with central venous catheter insertion as an important element of the patient's clinical management.: Yes Time Out Performed: Yes Patient Position: supine Patient placed on monitor/pulse ox: Yes Provider Prep: mask, sterile gown, sterile gloves, Max. sterile barrier precautions and hand hygiene Central line prep: Chlorhexidine scrub Local anesthesia used: lidocaine 1% Amount of anesthesia used (ml): 3 Ultrasound used for placement: Yes Central line lumen inserted: triple Upper Sorbian: 16 Length (cm): 16 Depth of Insertion (cm): 13 Post procedure: sutured in place, good blood return, all ports aspirated, flushed, capped, tegaderm, hemostatic disc, antimicrobial disc and aseptic technique maintained throughout procedure Post procedure x-ray: tip of catheter in good position Patient tolerated procedure: well Complications: none
[2020-03-29] VITALS (24 sets, daily range): BP systolic 117–145; BP diastolic 67–89; PULSE 51–79; RESP 14–22; TEMP 35.8–37; O2SAT 98–100; BMI 47.2
[2020-03-29 04:11] LABS: Alveolar/Arterial O2 Gradient 153.8 mmHg; Base Excess ABG 6.1 mEq/l (+/-2.0); Carboxyhemoglobin 0.3 % THb (0-2.0); Fractional Inspired Oxygen 40 %; HCO3 ABG 29.6 mEq/l (22.0-26.0); Methemoglobin ABG 0.1 %THb (0-1.5); Oxygen Content ABG 13.6 %vol (16.0-22.0); Oxygen Saturation ABG 97.3 % (95.0-100.0); PCO2 ABG 38.7 mmHg (35.0-45.0); PO2 ABG 86.9 mmHg (80.0-100.0); PO2 FiO2 Ratio Arterial Blood 2.17 %; Reduced Hemoglobin 3.6 %THb (0-5.0); pH ABG 7.502 (7.350-7.450)
[2020-03-29 04:12] LABS: Arterial Blood Gas Vent Mode CMV; Arterial Blood Gas Ventilator rate 16 /MIN; Device VENTILATOR; Modified Allen's Test Pass; Site Drawn LEFT RADIAL
[2020-03-29 04:14] LABS: Arterial Blood Gas PEEP 5 cmH2O; Arterial Blood Gas Tidal Volume 330 ml
[2020-03-29 05:37] LABS: Hematocrit 24.9 % (37.0-47.0); Hemoglobin 7.5 g/dL (12.0-15.0); Immature Granulocyte Absolute 0.03 K/mm3 (0.00-0.031); Immature Granulocyte Percent A 0.5 % (0-0.5); Lymphocytes Absolute Auto 0.58 K/mm3 (0.9-3.2); Lymphocytes Percent Auto 10.6 % (18.3-44.2); Mean Corpuscular HGB Conc 30.1 g/dl (32-36); Mean Corpuscular Hemoglobin 29.3 pg (26-34); Mean Corpuscular Volume 97.3 fl (80-100); Mean Platelet Volume 9.7 fl (7.4-10.4); Monocytes Absolute Auto 0.4 K/mm3 (0.1-0.6); Monocytes Percent Auto 7.1 % (2.6-8.5); Neutrophils Absolute Auto 4.5 K/mm3 (1.3-6.7); Neutrophils Percent Auto 81.8 % (45.5-73.1); Platelet Count Result 214 k/mm3 (150-375); Red Blood Count 2.56 M/mm3 (4.2-5.4); Red Cell Distribution Width 16.6 % (11.5-14.5); White Blood Count 5.5 K/mm3 (4.5-10.0)
[2020-03-29] MEDS: AMIODARONE 360 MG/D5W 200 ML 360 MG/200 ML BAG 16.7 MG IV CONT (05:41)
[2020-03-29 05:55] LABS: Lactic Acid 0.7 mmol/L (0.7-2.1)
[2020-03-29 05:56] LABS: Alanine Aminotransferase 11 U/L (4-35); Albumin Level 3.1 g/dL (3.5-5.1); Alkaline Phosphatase 86 U/L (38-126); Aspartate Amino Transferase 20 U/L (14-36); Bilirubin,Total 0.5 mg/dL (0.2-1.3); Blood Urea Nitrogen 19 mg/dL (7-17); Calcium 8.9 mg/dL (8.4-10.2); Carbon Dioxide 36 mmol/L (22-30); Chloride 95 mmol/L (98-107); Estimated CRCL calculation 69 ml/min; Estimated Glomerular Filt Rate > 60; Glucose 132 mg/dL (65-105); Magnesium 1.7 mg/dL (1.6-2.3); Phosphorus 3.6 mg/dL (2.5-4.5); Sodium 136 mmol/L (137-145)
[2020-03-29 07:02] LABS: Thyroid Stimulating Hormone Reflex 0.329 uIU/mL (0.465-4.68)
[2020-03-29] MEDS: SODIUM CHLORIDE 0.9% IV 1,000 ML 75 ML IV CONT (08:20)
[2020-03-29] MEDS: FERROUS SULFATE 324 MG TABLET PO (09:03)
[2020-03-29] MEDS: APIXABAN 5 MG TABLET PO ×2 (09:03→16:02)
[2020-03-29] MEDS: polyethylene glycoL 3350 17 GM POWD.PACK PO (09:03)
[2020-03-29] MEDS: METOPROLOL TARTRATE 25 MG TABLET PO (09:03)
[2020-03-29] MEDS: ATORVASTATIN 10 MG TABLET PO (09:03)
[2020-03-29] MEDS: LACTIC ACID 12% LOTION 225 BTL 1 APPLIC TOPICAL (09:04)
[2020-03-29] MEDS: TOLNAFTATE 1% POWDER 45 GM BTL 1 APPLIC TOPICAL ×2 (09:04→20:46)
--- NOTE | 2020-03-29 09:18 | WPDINTPN ---
Progress Note: A&P Assessment and Plan (1) Acute respiratory failure: Qualifiers: Respiratory failure complication: hypercapnia Qualified Code(s): J96.02 - Acute respiratory failure with hypercapnia Code(s): J96.00 - Acute respiratory failure, unspecified whether with hypoxia or hypercapnia Status: Acute Assessment and Plan: patient presented with increasing shortness of breath confusion from the [facility] 03/28/2020. ABG showed hypercapnic respiratory failure - patient was intubated on 03/28/2020 as she was tachypneic, dyspneic, was using accessory muscles of respiration, patient was intubated for impending respiratory failure - SARS-CoV-2 PCR negative - chest x-ray and ABGs reviewed. will decrease respiratory rate to 14, currently on 5 of PEEP and 40% FiO2 - continue bronchodilators - continue ceftriaxone and azithromycin for possible pneumonia (2) Atrial fibrillation: Qualifiers: Atrial fibrillation type: unspecified chronic Qualified Code(s): I48.20 - Chronic atrial fibrillation, unspecified Code(s): I48.91 - Unspecified atrial fibrillation Status: Chronic Assessment and Plan: patient with history of AFib, now in AFib RVR, patient started on amiodarone infusion after a bolus of amiodarone in the ED. this was likely related to respiratory events - patient bradycardic in the 50s to 60s. will discontinue amiodarone - will continue metoprolol which is a home medication - continue to monitor heart rate - Echocardiogram 02/19/2020, was poor quality exam, EF 50-55% - continue Eliquis (3) Hypertension: Qualifiers: Hypertension type: essential hypertension Qualified Code(s): I10 - Essential (primary) hypertension Code(s): I10 - Essential (primary) hypertension Status: Chronic Assessment and Plan: patient with hypertension, patient started on nitroglycerin paste. Was also given metoprolol IV, systolic blood pressures have improved - blood pressures are stable continue metoprolol patient - hydralazine p.r.n. IV - continue to monitor (4) Venous stasis dermatitis: Qualifiers: Laterality: right Qualified Code(s): I87.2 - Venous insufficiency (chronic) (peripheral) Code(s): I87.2 - Venous insufficiency (chronic) (peripheral) Status: Acute Assessment and Plan: chronic venous stasis changes bilateral lower extremities, (5) Morbid obesity: Code(s): E66.01 - Morbid (severe) obesity due to excess calories Status: Acute Assessment and Plan: once extubated, will discuss with patient regarding weight loss, will have Director Of Music evaluate the patient (6) DVT prophylaxis: Code(s): Z29.9 - Encounter for prophylactic measures, unspecified Status: Acute Assessment and Plan: DVT prophylaxis: continue Eliquis (7) Dietary counseling and surveillance: Code(s): Z71.3 - Dietary counseling and surveillance Status: Acute Assessment and Plan: will start tube feeds today Additional Plan will discuss with daughter today code status: Full code Critical care time spent: 34 minutes Due to a high probability of clinically significant, life threatening deterioration, the patient required my highest level of preparedness to intervene emergently and I personally spent this critical care time directly and personally managing the patient. This critical care time included obtaining a history; examining the patient; pulse oximetry; ordering and review of studies; arranging urgent treatment with development of a management plan; evaluation of patient's response to treatment; frequent reassessment; and discussions with other providers. It was exclusive of separately billable procedures and treating other patients and teaching time. Please see Assessment and Plan section and the rest of the note for further information on patient assessment and treatmen
[2020-03-29 10:15] LABS: Free T4 Free Thyroxine Reflex 1.46 ng/dL (0.78-2.19)
[2020-03-29 11:26] LABS: Total Triiodothyronine (T3) 0.48 NG/ML (0.97-1.69)
[2020-03-29] MEDS: MICONAZOLE NITRATE 2% CREAM 30 GM TUBE 1 APPLIC TOPICAL ×2 (11:43→20:46)
[2020-03-29 12:42] LABS: Glucose Point of Care 130 (65-105)
--- NOTE | 2020-03-29 14:24 | PM.IMPN ---
Progress Note: A&P Assessment and Plan (1) Acute respiratory failure: Qualifiers: Respiratory failure complication: hypercapnia Qualified Code(s): J96.02 - Acute respiratory failure with hypercapnia Code(s): J96.00 - Acute respiratory failure, unspecified whether with hypoxia or hypercapnia Status: Acute Assessment and Plan: Discussed with plant care worker. Patient remains intubated. COVID-19 testing is negative. Will continue IV antibiotics. Remains on sedation. Will continue to monitor. Ventilator management per plant care worker. (2) CAP (community acquired pneumonia): Qualifiers: Laterality: unspecified laterality Qualified Code(s): J18.9 - Pneumonia, unspecified organism Code(s): J18.9 - Pneumonia, unspecified organism Status: Acute Assessment and Plan: Chest x-ray today with bilateral airspace opacities. Does remain on IV ceftriaxone, azithromycin and vancomycin. COVID-19 testing negative. Remains on ventilator as noted above. (3) Atrial fibrillation: Qualifiers: Atrial fibrillation type: unspecified chronic Qualified Code(s): I48.20 - Chronic atrial fibrillation, unspecified Code(s): I48.91 - Unspecified atrial fibrillation Status: Chronic Assessment and Plan: Noted to be in atrial fibrillation with RVR. Was started on IV amiodarone which has now been discontinued. Telemetry reviewed on 03/29/2020 with atrial fibrillation with heart rate controlled. Will continue metoprolol and monitor. Remains on Eliquis for anticoagulation. (4) Suspected COVID-19 virus infection: Code(s): R68.89 - Other general symptoms and signs Status: Ruled-out Assessment and Plan: COVID-19 testing initiated on admission and now negative. Isolation discontinued. (5) Sepsis: Qualifiers: Acute respiratory failure type: with hypercapnia Sepsis acute organ dysfunction status: with acute organ dysfunction Sepsis type: sepsis due to unspecified organism Severe sepsis acute organ dysfunction type: acute respiratory failure Severe sepsis shock status: without septic shock Qualified Code(s): A41.9 - Sepsis, unspecified organism; R65.20 - Severe sepsis without septic shock; J96.02 - Acute respiratory failure with hypercapnia Code(s): A41.9 - Sepsis, unspecified organism Status: Acute Assessment and Plan: Criteria met on admission. Blood cultures are negative to date. Will continue IV antibiotics as noted above. (6) Hypertension: Qualifiers: Hypertension type: essential hypertension Qualified Code(s): I10 - Essential (primary) hypertension Code(s): I10 - Essential (primary) hypertension Status: Chronic Assessment and Plan: Blood pressure reviewed on 03/29/2020 and stable. Will continue to monitor on metoprolol. (7) Anemia: Qualifiers: Anemia type: unspecified type Qualified Code(s): D64.9 - Anemia, unspecified Code(s): D64.9 - Anemia, unspecified Status: Acute Assessment and Plan: Known chronic anemia. Hemoglobin slightly lower at 7.5 today. Will continue to monitor. Transfuse only if needed. Continue oral iron replacement. 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 Remains on Eliquis as noted above. (9) Venous stasis dermatitis: Qualifiers: Laterality: right Qualified Code(s): I87.2 - Venous insufficiency (chronic) (peripheral) Code(s)
[2020-03-29 17:32] LABS: Glucose Point of Care 118 (65-105)
[2020-03-29 23:45] LABS: Glucose Point of Care 105 (65-105)
[2020-03-30] VITALS (26 sets, daily range): BP systolic 97–135; BP diastolic 59–112; PULSE 63–147; RESP 14–18; TEMP 36.3–36.8; O2SAT 95–100
[2020-03-30 03:31] LABS: Alveolar/Arterial O2 Gradient 85.1 mmHg; Base Excess ABG 9.2 mEq/l (+/-2.0); Carboxyhemoglobin 0.1 % THb (0-2.0); Fractional Inspired Oxygen 30 %; HCO3 ABG 33.9 mEq/l (22.0-26.0); Methemoglobin ABG 0.1 %THb (0-1.5); Oxygen Saturation ABG 95.5 % (95.0-100.0); Oxyhemoglobin 93.7 % THb (90.0-100.0); PCO2 ABG 47.2 mmHg (35.0-45.0); PO2 ABG 73.3 mmHg (80.0-100.0); PO2 FiO2 Ratio Arterial Blood 2.44 %; Reduced Hemoglobin 6.1 %THb (0-5.0); Total Hemoglobin 9.8 g/dL (12.0-18.0); pH ABG 7.474 (7.350-7.450)
[2020-03-30 03:32] LABS: Arterial Blood Gas PEEP 5 cmH2O; Arterial Blood Gas Vent Mode CMV; Arterial Blood Gas Ventilator rate 14 /MIN; Device VENTILATOR; Modified Allen's Test Pass; Site Drawn RIGHT RADIAL
[2020-03-30 03:33] LABS: Arterial Blood Gas Tidal Volume 330 ml
[2020-03-30 05:31] LABS: Hematocrit 27.4 % (37.0-47.0); Hemoglobin 8.4 g/dL (12.0-15.0); Mean Corpuscular HGB Conc 30.7 g/dl (32-36); Mean Corpuscular Hemoglobin 29.5 pg (26-34); Mean Corpuscular Volume 96.1 fl (80-100); Platelet Count Result 243 k/mm3 (150-375); Red Blood Count 2.85 M/mm3 (4.2-5.4); Red Cell Distribution Width 16.6 % (11.5-14.5); White Blood Count 6.7 K/mm3 (4.5-10.0)
[2020-03-30 05:39] LABS: Blood Urea Nitrogen 19 mg/dL (7-17); Carbon Dioxide 38 mmol/L (22-30); Chloride 94 mmol/L (98-107); Estimated CRCL calculation 95 ml/min; Estimated Glomerular Filt Rate > 60; Glucose 112 mg/dL (65-105); Magnesium 1.8 mg/dL (1.6-2.3); Phosphorus 3.3 mg/dL (2.5-4.5); Potassium 3.4 mmol/L (3.4-5.0); Sodium 135 mmol/L (137-145)
[2020-03-30] MEDS: METOPROLOL TARTRATE 25 MG TABLET PO (08:56)
[2020-03-30] MEDS: APIXABAN 5 MG TABLET PO ×2 (08:57→17:20)
[2020-03-30] MEDS: FERROUS SULFATE 324 MG TABLET PO (08:58)
[2020-03-30] MEDS: ATORVASTATIN 10 MG TABLET PO (08:58)
[2020-03-30] MEDS: polyethylene glycoL 3350 17 GM POWD.PACK PO (09:00)
--- NOTE | 2020-03-30 09:29 | WPDINTPN ---
Progress Note: A&P Assessment and Plan (1) Acute respiratory failure: Qualifiers: Respiratory failure complication: hypercapnia Qualified Code(s): J96.02 - Acute respiratory failure with hypercapnia Code(s): J96.00 - Acute respiratory failure, unspecified whether with hypoxia or hypercapnia Status: Acute Assessment and Plan: Patient presented with increasing shortness of breath and confusion from the group home 03/28/2020. ABG showed hypercapnic respiratory failure - Patient was intubated on 03/28/2020 as she was tachypneic, dyspneic, was using accessory muscles of respiration, patient was intubated for impending respiratory failure - SARS-CoV-2 PCR negative - chest x-ray and ABGs reviewed. She is currently on PEEP of 5, FiO2 of 30%, respiratory rate of 14 and tidal volume of 330. - continue bronchodilators - continue ceftriaxone and azithromycin for possible pneumonia She is awake and alert and has been following command. She is stable from a respiratory and hemodynamic perspective. Will put her on SBT trial and follow her closely to see how she does. She has been started on pressure support of 15 with a PEEP of 5. I have asked the nurse and respiratory therapist to decrease the pressure support gradually and when she is down to pressure support 5 over PEEP 5 then get an ABG while she is on 5/5 pressure for 30-45 minutes of possible extubation. May extubate her to BiPAP. Will give Lasix 1 dose now. If he does not get extubated then will repeat the dose later in the evening. (2) Atrial fibrillation: Qualifiers: Atrial fibrillation type: unspecified chronic Qualified Code(s): I48.20 - Chronic atrial fibrillation, unspecified Code(s): I48.91 - Unspecified atrial fibrillation Status: Chronic Assessment and Plan: patient with history of AFib, was in AFib RVR, patient started on amiodarone infusion after a bolus of amiodarone in the ED. this was likely related to respiratory events - patient bradycardic in the 50s to 60s. Amiodarone has been discontinued already. - will continue metoprolol which is a home medication - continue to monitor heart rate On telemetry. - Echocardiogram 02/19/2020, was poor quality exam, EF 50-55% - continue Eliquis (3) Hypertension: Qualifiers: Hypertension type: essential hypertension Qualified Code(s): I10 - Essential (primary) hypertension Code(s): I10 - Essential (primary) hypertension Status: Chronic Assessment and Plan: patient with hypertension At the time presentation, patient started on nitroglycerin paste. Was also given metoprolol IV, systolic blood pressures have improved. - blood pressures are stable continue metoprolol - hydralazine p.r.n. IV - continue to monitor (4) Venous stasis dermatitis: Qualifiers: Laterality: right Qualified Code(s): I87.2 - Venous insufficiency (chronic) (peripheral) Code(s): I87.2 - Venous insufficiency (chronic) (peripheral) Status: Acute Assessment and Plan: chronic venous stasis changes bilateral lower extremities, no signs of cellulitis. (5) Morbid obesity: Code(s): E66.01 - Morbid (severe) obesity due to excess calories Status: Acute Assessment and Plan: once extubated, will discuss with patient regarding weight loss, will have Networking Engineer evaluate the patient (6) DVT prophylaxis: Code(s): Z29.9 - Encounter for prophylactic measures, unspecified Status: Acute Assessment and Plan: DVT prophylaxis: continue Eliquis (7) Dietary counseling and surveillance: Code(s): Z71.3 - Dietary counseling and surveillance Status: Acute Assessment and Plan: Has been on tube feed for now. Will hold off tube feed for possible extubation today. If she does not get extubated then will be resumed on tube feed. Additional Plan will discuss with rosibel
[2020-03-30] MEDS: FUROSEMIDE INJ 40 MG/4 ML VIAL IV PUSH (10:08)
[2020-03-30] MEDS: MAGNESIUM SULF 2 GM/WATER 50ML 2 GM/50 ML BAG IVPB (10:08)
[2020-03-30 11:00] LABS: Alveolar/Arterial O2 Gradient 128.1 mmHg; Base Excess ABG 7.3 mEq/l (+/-2.0); Carboxyhemoglobin 0.1 % THb (0-2.0); Fractional Inspired Oxygen 30 %; HCO3 ABG 34.3 mEq/l (22.0-26.0); Methemoglobin ABG 0.4 %THb (0-1.5); Oxygen Content ABG 16.8 %vol (16.0-22.0); Oxygen Saturation ABG 96.2 % (95.0-100.0); Oxyhemoglobin 94.9 % THb (90.0-100.0); PO2 ABG 87.2 mmHg (80.0-100.0); PO2 FiO2 Ratio Arterial Blood 2.91 %; Reduced Hemoglobin 4.6 %THb (0-5.0); Total Hemoglobin 12.5 g/dL (12.0-18.0); pH ABG 7.373 (7.350-7.450)
[2020-03-30 11:01] LABS: Arterial Blood Gas Vent Mode SPONTANEOUS; Device VENTILATOR; Modified Allen's Test Pass; PCO2 ABG 60.3 mmHg (35.0-45.0); Site Drawn LEFT RADIAL
[2020-03-30 11:02] LABS: Arterial Blood Gas PEEP 5 cmH2O; Peak Inspiratory Pressure 5 cmH2O
[2020-03-30 11:42] LABS: Glucose Point of Care 129 (65-105)
[2020-03-30] MEDS: MICONAZOLE NITRATE 2% CREAM 30 GM TUBE 1 APPLIC TOPICAL ×2 (11:51→20:04)
[2020-03-30] MEDS: TOLNAFTATE 1% POWDER 45 GM BTL 1 APPLIC TOPICAL ×2 (11:51→20:03)
[2020-03-30] MEDS: LACTIC ACID 12% LOTION 225 BTL 1 APPLIC TOPICAL (11:52)
[2020-03-30] MEDS: METOPROLOL TARTRATE INJ 5 MG/5 ML VIAL IV PUSH ×2 (12:33→17:19)
--- NOTE | 2020-03-30 14:34 | PM.IMPN ---
Progress Note: A&P Assessment and Plan (1) Acute respiratory failure: Qualifiers: Respiratory failure complication: hypercapnia Qualified Code(s): J96.02 - Acute respiratory failure with hypercapnia Code(s): J96.00 - Acute respiratory failure, unspecified whether with hypoxia or hypercapnia Status: Acute Assessment and Plan: Now on Precedex. Remains intubated. Did have spontaneous breathing trial today but not ready for extubation. Discussed with career technology teacher. COVID-19 testing negative. Remains on IV antibiotics. Possible attempt at extubation tomorrow depending on how she is doing. Will continue to monitor. (2) CAP (community acquired pneumonia): Qualifiers: Laterality: unspecified laterality Qualified Code(s): J18.9 - Pneumonia, unspecified organism Code(s): J18.9 - Pneumonia, unspecified organism Status: Acute Assessment and Plan: Chest x-ray today reviewed with persistent bilateral infiltrates. Remains on IV ceftriaxone, azithromycin and vancomycin. COVID-19 testing negative. Remains on ventilator as noted above. (3) Atrial fibrillation: Qualifiers: Atrial fibrillation type: unspecified chronic Qualified Code(s): I48.20 - Chronic atrial fibrillation, unspecified Code(s): I48.91 - Unspecified atrial fibrillation Status: Chronic Assessment and Plan: Noted to be in atrial fibrillation with RVR on admission. Was started on IV amiodarone initially but now discontinued. Telemetry reviewed on 03/30/2020 with atrial fibrillation with heart rate remaining controlled. Metoprolol now IV for better control. Remains on Eliquis for anticoagulation. Will continue to monitor. (4) Sepsis: Qualifiers: Acute respiratory failure type: with hypercapnia Sepsis acute organ dysfunction status: with acute organ dysfunction Sepsis type: sepsis due to unspecified organism Severe sepsis acute organ dysfunction type: acute respiratory failure Severe sepsis shock status: without septic shock Qualified Code(s): A41.9 - Sepsis, unspecified organism; R65.20 - Severe sepsis without septic shock; J96.02 - Acute respiratory failure with hypercapnia Code(s): A41.9 - Sepsis, unspecified organism Status: Acute Assessment and Plan: Criteria met on admission. Initial blood cultures are now growing staph aureus with sensitivities pending. Repeat blood cultures started. Remains on IV vancomycin as noted above. Has blood cultures positive for MERCEDES during last admission in February. May need infectious disease consultation pending sensitivities of initial blood cultures. (5) Hypertension: Qualifiers: Hypertension type: essential hypertension Qualified Code(s): I10 - Essential (primary) hypertension Code(s): I10 - Essential (primary) hypertension Status: Chronic Assessment and Plan: Blood pressure reviewed on 03/30/2020 with variability but acceptable. Will continue to monitor on metoprolol. (6) Anemia: Qualifiers: Anemia type: unspecified type Qualified Code(s): D64.9 - Anemia, unspecified Code(s): D64.9 - Anemia, unspecified Status: Acute Assessment and Plan: Known chronic anemia. Hemoglobin better today at 8.4. Will continue to monitor. Transfuse only if needed. Continue oral iron replacement. 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 Remains on Eliquis as noted above. (8) Marcelino
[2020-03-30 18:04] LABS: Glucose Point of Care 107 (65-105)
[2020-03-30] MEDS: FAMOTIDINE 20 MG/2 ML VIAL IV PUSH (20:03)
[2020-03-31] VITALS (24 sets, daily range): BP systolic 92–132; BP diastolic 56–99; PULSE 50–125; RESP 14–34; TEMP 36.4–36.9; O2SAT 91–100
[2020-03-31] MEDS: METOPROLOL TARTRATE INJ 5 MG/5 ML VIAL IV PUSH ×5 (00:09→23:35)
[2020-03-31 00:11] LABS: Glucose Point of Care 113 (65-105)
[2020-03-31 04:45] LABS: Alveolar/Arterial O2 Gradient 83.7 mmHg; Base Excess ABG 9.3 mEq/l (+/-2.0); Carboxyhemoglobin 0.3 % THb (0-2.0); Fractional Inspired Oxygen 30 %; HCO3 ABG 33.3 mEq/l (22.0-26.0); Methemoglobin ABG 0.2 %THb (0-1.5); Oxygen Content ABG 16.6 %vol (16.0-22.0); Oxygen Saturation ABG 96.7 % (95.0-100.0); Oxyhemoglobin 95.1 % THb (90.0-100.0); PCO2 ABG 42.9 mmHg (35.0-45.0); PO2 ABG 79.8 mmHg (80.0-100.0); PO2 FiO2 Ratio Arterial Blood 2.66 %; Reduced Hemoglobin 4.4 %THb (0-5.0); Total Hemoglobin 12.4 g/dL (12.0-18.0); pH ABG 7.508 (7.350-7.450)
[2020-03-31 04:47] LABS: Device VENTILATOR; Modified Allen's Test Pass; Site Drawn RIGHT RADIAL
[2020-03-31 04:48] LABS: Arterial Blood Gas PEEP 5 cmH2O; Arterial Blood Gas Tidal Volume 330 ml; Arterial Blood Gas Vent Mode CMV; Arterial Blood Gas Ventilator rate 14 /MIN
[2020-03-31 05:51] LABS: Hematocrit 27.5 % (37.0-47.0); Hemoglobin 8.5 g/dL (12.0-15.0); Mean Corpuscular HGB Conc 30.9 g/dl (32-36); Mean Corpuscular Hemoglobin 29.4 pg (26-34); Mean Corpuscular Volume 95.2 fl (80-100); Mean Platelet Volume 9.6 fl (7.4-10.4); Platelet Count Result 242 k/mm3 (150-375); Red Blood Count 2.89 M/mm3 (4.2-5.4); Red Cell Distribution Width 16.5 % (11.5-14.5); White Blood Count 6.3 K/mm3 (4.5-10.0)
[2020-03-31 06:04] LABS: Blood Urea Nitrogen 20 mg/dL (7-17); Calcium 8.6 mg/dL (8.4-10.2); Carbon Dioxide 36 mmol/L (22-30); Chloride 90 mmol/L (98-107); Estimated CRCL calculation 73 ml/min; Estimated Glomerular Filt Rate > 60; Glucose 103 mg/dL (65-105); Magnesium 1.9 mg/dL (1.6-2.3); Phosphorus 3.3 mg/dL (2.5-4.5); Potassium 3.4 mmol/L (3.4-5.0); Sodium 131 mmol/L (137-145)
[2020-03-31] MEDS: FERROUS SULFATE 324 MG TABLET PO (07:47)
[2020-03-31] MEDS: APIXABAN 5 MG TABLET PO ×2 (07:47→17:23)
[2020-03-31] MEDS: ATORVASTATIN 10 MG TABLET PO (07:47)
[2020-03-31] MEDS: FAMOTIDINE 20 MG/2 ML VIAL IV PUSH ×2 (07:47→20:12)
[2020-03-31] MEDS: polyethylene glycoL 3350 17 GM POWD.PACK PO (07:47)
[2020-03-31] MEDS: LACTIC ACID 12% LOTION 225 BTL 1 APPLIC TOPICAL (07:47)
[2020-03-31] MEDS: TOLNAFTATE 1% POWDER 45 GM BTL 1 APPLIC TOPICAL ×2 (07:48→20:12)
[2020-03-31] MEDS: MICONAZOLE NITRATE 2% CREAM 30 GM TUBE 1 APPLIC TOPICAL ×2 (07:48→20:12)
--- NOTE | 2020-03-31 08:27 | PM.IMPN ---
Progress Note: A&P Assessment and Plan (1) Acute respiratory failure: Qualifiers: Respiratory failure complication: hypercapnia Qualified Code(s): J96.02 - Acute respiratory failure with hypercapnia Code(s): J96.00 - Acute respiratory failure, unspecified whether with hypoxia or hypercapnia Status: Acute Assessment and Plan: On Precedex this morning. Remains intubated. COVID-19 testing negative. Chest x-ray today with bilateral infiltrates without significant change from 03/30/2020. Remains on IV antibiotics. Discussed with lithopone charger. Plan for spontaneous breathing trial and hopeful extubation today. Discussed with lithopone charger again this afternoon. Patient successfully extubated today and currently doing well. No longer on Precedex. Will continue to monitor. (2) CAP (community acquired pneumonia): Qualifiers: Laterality: unspecified laterality Qualified Code(s): J18.9 - Pneumonia, unspecified organism Code(s): J18.9 - Pneumonia, unspecified organism Status: Acute Assessment and Plan: Chest x-ray today with persistent bilateral infiltrates as noted above. Remains on IV ceftriaxone and azithromycin. IV vancomycin discontinued. COVID-19 testing negative. Continue respiratory treatments. (3) Atrial fibrillation: Qualifiers: Atrial fibrillation type: unspecified chronic Qualified Code(s): I48.20 - Chronic atrial fibrillation, unspecified Code(s): I48.91 - Unspecified atrial fibrillation Status: Chronic Assessment and Plan: Noted to be in atrial fibrillation with RVR on admission. Was started on IV amiodarone initially but subsequently discontinued and no longer on at this time. Telemetry reviewed on 03/31/2020 with atrial fibrillation with heart rate controlled. Remains on IV metoprolol. Continue Eliquis for anticoagulation. Will continue to monitor. (4) Sepsis: Qualifiers: Acute respiratory failure type: with hypercapnia Sepsis acute organ dysfunction status: with acute organ dysfunction Sepsis type: sepsis due to unspecified organism Severe sepsis acute organ dysfunction type: acute respiratory failure Severe sepsis shock status: without septic shock Qualified Code(s): A41.9 - Sepsis, unspecified organism; R65.20 - Severe sepsis without septic shock; J96.02 - Acute respiratory failure with hypercapnia Code(s): A41.9 - Sepsis, unspecified organism Status: Acute Assessment and Plan: Criteria met on admission. Initial blood cultures now growing MERCEDES. Repeat blood cultures still pending at this time. Was treated for positive blood cultures with 0SSA on last admission in February 2020. Discussed with lithopone charger. Infectious Disease consulted given repeat positive infection. On IV vancomycin but does remain on IV ceftriaxone. Await further recommendations from infectious disease. WBC normal at 6.3 today. (5) Hypertension: Qualifiers: Hypertension type: essential hypertension Qualified Code(s): I10 - Essential (primary) hypertension Code(s): I10 - Essential (primary) hypertension Status: Chronic Assessment and Plan: Blood pressure reviewed on 03/31/2020. Presently stable. Will continue to monitor on metoprolol. (6) Anemia: Qualifiers: Anemia type: unspecified type Qualified Code(s): D64.9 - Anemia, unspecified Code(s): D64.9 - Anemia, unspecified Status: Acute Assessment and Plan: Known chronic anemia. Hemoglobin stable at 8.5 today. Will continue to monitor. Transfuse only if needed. Continue oral iron replacement. (7) DVT (deep venous thrombosis): Qualifiers: Affected thrombotic vein of extremity: unspecified vein of extremity Chronicity: chronic DVT location: lower extremity Laterality: unspecified laterality Qualified Code(s): I82.509 - Chronic embolism and thrombosis of unspecified deep veins of uns
[2020-03-31 10:31] LABS: Alveolar/Arterial O2 Gradient 73.3 mmHg; Base Excess ABG 8.4 mEq/l (+/-2.0); Fractional Inspired Oxygen 30 %; HCO3 ABG 33.4 mEq/l (22.0-26.0); Oxygen Content ABG 13.5 %vol (16.0-22.0); Oxygen Saturation ABG 96.5 % (95.0-100.0); Oxyhemoglobin 94.9 % THb (90.0-100.0); PO2 FiO2 Ratio Arterial Blood 2.77 %; pH ABG 7.452 (7.350-7.450)
[2020-03-31 10:32] LABS: Arterial Blood Gas PEEP 5 cmH2O; Arterial Blood Gas Pressure Support 5 cmH2O; Arterial Blood Gas Vent Mode SPONTANEOUS; Device VENTILATOR; Modified Allen's Test Pass; Site Drawn RIGHT RADIAL
--- NOTE | 2020-03-31 10:57 | WPDINTPN ---
Progress Note: A&P Assessment and Plan (1) Acute respiratory failure: Qualifiers: Respiratory failure complication: hypercapnia Qualified Code(s): J96.02 - Acute respiratory failure with hypercapnia Code(s): J96.00 - Acute respiratory failure, unspecified whether with hypoxia or hypercapnia Status: Acute Assessment and Plan: Patient presented with increasing shortness of breath and confusion from the half-way 03/28/2020. ABG showed hypercapnic respiratory failure - Patient was intubated on 03/28/2020 as she was tachypneic, dyspneic, was using accessory muscles of respiration, patient was intubated for impending respiratory failure - SARS-CoV-2 PCR negative - chest x-ray and ABGs reviewed. - continue bronchodilators - continue ceftriaxone and azithromycin for possible pneumonia She is awake and alert and has been following command. She is stable from a respiratory and hemodynamic perspective. She has been placed on SBT trial and she did well today. She has been extubated and currently on 1 L of oxygen through nasal cannula. She seems comfortable and not in distress. (2) Atrial fibrillation: Qualifiers: Atrial fibrillation type: unspecified chronic Qualified Code(s): I48.20 - Chronic atrial fibrillation, unspecified Code(s): I48.91 - Unspecified atrial fibrillation Status: Chronic Assessment and Plan: patient with history of AFib, was in AFib RVR, patient started on amiodarone infusion after a bolus of amiodarone in the ED. this was likely related to respiratory events - patient bradycardic in the 50s to 60s. Amiodarone has been discontinued already. - will continue metoprolol which is a home medication - continue to monitor heart rate On telemetry. - Echocardiogram 02/19/2020, was poor quality exam, EF 50-55% - continue Eliquis (3) Hypertension: Qualifiers: Hypertension type: essential hypertension Qualified Code(s): I10 - Essential (primary) hypertension Code(s): I10 - Essential (primary) hypertension Status: Chronic Assessment and Plan: patient with hypertension At the time presentation, patient started on nitroglycerin paste. Was also given metoprolol IV, systolic blood pressures have improved. - blood pressures are stable continue metoprolol - hydralazine p.r.n. IV - continue to monitor (4) Venous stasis dermatitis: Qualifiers: Laterality: right Qualified Code(s): I87.2 - Venous insufficiency (chronic) (peripheral) Code(s): I87.2 - Venous insufficiency (chronic) (peripheral) Status: Acute Assessment and Plan: chronic venous stasis changes bilateral lower extremities, no signs of cellulitis. (5) Morbid obesity: Code(s): E66.01 - Morbid (severe) obesity due to excess calories Status: Acute Assessment and Plan: will discuss with patient regarding weight loss, will have Wind Site Manager evaluate the patient (6) DVT prophylaxis: Code(s): Z29.9 - Encounter for prophylactic measures, unspecified Status: Acute Assessment and Plan: DVT prophylaxis: continue Eliquis (7) Dietary counseling and surveillance: Code(s): Z71.3 - Dietary counseling and surveillance Status: Acute Assessment and Plan: Tube feed has been on hold for possible extubation. Now since she has been extubated she will remain NPO until speech evaluation is performed. (8) Bacteremia due to methicillin susceptible Staphylococcus aureus (MSSA): Code(s): R78.81 - Bacteremia; B95.61 - Methicillin susceptible Staphylococcus aureus infection as the cause of diseases classified elsewhere Status: Acute Assessment and Plan: Blood culture from 03/28 reported as positive for Staph aureus. It is sensitive to oxacillin. It is resistant to tetracycline clindamycin and erythromycin. She was on vancomycin. She is on ceft
[2020-03-31] MEDS: MAGNESIUM SULF 2 GM/WATER 50ML 2 GM/50 ML BAG IVPB (11:59)
[2020-03-31] MEDS: FUROSEMIDE INJ 40 MG/4 ML VIAL IV PUSH (11:59)
--- NOTE | 2020-03-31 16:33 | WPDINFPN2 ---
Progress Note: A&P Additional Plan Patient was seen and consult dictated. Thank you. Subjective Date/time seen: 03/31/20 16:33 Objective Data Vital Signs Vital Signs: Vital Signs - 24 hr 03/30/20 17:12 03/30/20 17:19 03/30/20 18:00 Temperature Pulse Rate 113 H 99 82 Respiratory Rate 18 Blood Pressure 106/74 Pulse Oximetry 97 97 03/30/20 20:00 03/30/20 20:10 03/30/20 22:00 Temperature 36.8 C Pulse Rate 80 83 68 Respiratory Rate 17 15 Blood Pressure 97/59 L 101/61 Pulse Oximetry 95 100 100 03/30/20 23:15 03/31/20 00:00 03/31/20 00:09 Temperature 36.8 C Pulse Rate 69 68 66 Respiratory Rate 15 Blood Pressure 92/82 L Pulse Oximetry 96 98 03/31/20 02:00 03/31/20 02:15 03/31/20 04:00 Temperature 36.4 C Pulse Rate 63 52 L 58 L Respiratory Rate 15 14 Blood Pressure 100/77 99/64 L Pulse Oximetry 98 99 99 03/31/20 05:05 03/31/20 05:34 03/31/20 05:54 Temperature Pulse Rate 50 L 55 L 57 L Respiratory Rate 14 Blood Pressure 99/64 L Pulse Oximetry 100 98 03/31/20 08:00 03/31/20 08:23 03/31/20 09:24 Temperature 36.6 C Pulse Rate 80 87 86 Respiratory Rate 16 Blood Pressure 111/68 Pulse Oximetry 99 100 94 03/31/20 10:00 03/31/20 10:34 03/31/20 10:44 Temperature Pulse Rate 70 80 82 Respiratory Rate 20 Blood Pressure 115/62 Pulse Oximetry 98 100 100 03/31/20 11:15 03/31/20 12:00 03/31/20 12:06 Temperature Pulse Rate 76 90 92 Respiratory Rate 18 22 H Blood Pressure 125/79 Pulse Oximetry 96 91 03/31/20 14:00 03/31/20 16:00 Temperature 36.4 C Pulse Rate 108 H 111 H Respiratory Rate 28 H 30 H Blood Pressure 125/70 126/96 H Pulse Oximetry 92 93 Intake/Output Intake/Output: Intake & Output 03/28/20 03/29/20 03/30/20 03/31/20 23:59 23:59 23:59 23:59 Intake Total 600 3502 2188 1977 Output Total 577 393 0479 275 Balance -350 1882 1116 1702 Meds/Results Medications: Active Medications Generic Name Dose Route Start Last Admin Trade Name Freq PRN Reason Stop Dose Admin Albuterol 2 puff 03/28/20 12:16 Proventil Hfa INHALATION Q6HRT PRN Shortness Of Breath Apixaban 5 mg 03/28/20 09:00 03/31/20 07:47 Eliquis PO 5 mg BID DEWAYNE Administration Atorvastatin Calcium 10 mg 03/28/20 09:00 03/31/20 07:47 Lipitor PO 10 mg DAILY DEWAYNE Administration Famotidine 20 mg 03/30/20 21:00 03/31/20 07:47 Pepcid Iv IV PUSH 20 mg Q12HR DEWAYNE Administration Ferrous Sulfate 324 mg 03/29/20 08:00 03/31/20 07:47 Ferrous Sulfate PO 324 mg DAILY@0800 DEWAYNE Administration Hydralazine HCl 10 mg 03/28/20 13:06 Apresoline Hcl Inj IV PUSH Q4H PRN Blood Pressure - High Ceftriaxone Sodium/Dextrose 1 gm in 50 mls @ 100 mls/hr 03/29/20 09:00 03/31/20 11:53 Rocephin 1 Gm/D5w 50 Ml IVPB Infused Q24H DEWAYNE Infusion Azithromycin 500 mg in 250 mls @ 250 mls/hr 03/29/20 09:00 03/31/20 11:52 Zithromax IVPB Infused Q24H [facility] Infusion Lactic Acid 1 applic 03/29/20 09:00 03/31/20 07:47 Lac-Hydrin Lotion TOPICAL 04/28/20 09:01 1 applic DAILY [facility] Administration Metoprolol Tartrate 5 mg 03/30/20 12:00 03/31/20 12:06 Lopressor Inj IV PUSH 5 mg Q6HR DEWAYNE Administration Miconazole Nitrate 1 applic 03/29/20 09:00 03/31/20 07:48 Miconazole Nitrate 2% Cream TOPICAL 1 applic Q12HR DEWAYNE Administration Polyethylene Glycol 17 gm 03/28/20 09:00 03/31/20 07:47 Miralax PO 17 gm DAILY DEWAYNE Administration Tolnaftate 1 applic 03/28/20 13:00 03/31/20 07:48 Tolnaftate 1% Powder TOPICAL 1 applic Q12HR DEWAYNE Administration Radiology Results: ITS Impressions Abdomen X-Ray 03/28/20 16:35 IMPRESSION: Feeding tube in position. Chest X-Ray 03/31/20 10:05 IMPRESSION: Little interval change since 04/09/2020 ET tube tip 1.6 cm above marah; ideal range is 205 cm Labs Labs: Laboratory Results - last 24 hr
[2020-03-31 18:46] LABS: Vancomycin Trough 37.6 ug/mL (10.0-20.0)
[2020-04-01] VITALS (17 sets, daily range): BP systolic 114–147; BP diastolic 67–97; PULSE 77–141; RESP 18–32; TEMP 36.2–36.7; O2SAT 92–100; BMI 11.0
[2020-04-01 04:05] LABS: Alveolar/Arterial O2 Gradient 30.6 mmHg; Base Excess ABG 10.4 mEq/l (+/-2.0); Carboxyhemoglobin 0.1 % THb (0-2.0); Fractional Inspired Oxygen 28 %; HCO3 ABG 36.5 mEq/l (22.0-26.0); Methemoglobin ABG 0.3 %THb (0-1.5); Oxygen Content ABG 14.8 %vol (16.0-22.0); Oxygen Saturation ABG 97.6 % (95.0-100.0); Oxyhemoglobin 96.7 % THb (90.0-100.0); PCO2 ABG 57.1 mmHg (35.0-45.0); PO2 ABG 101.7 mmHg (80.0-100.0); PO2 FiO2 Ratio Arterial Blood 3.63 %; Reduced Hemoglobin 2.9 %THb (0-5.0); Total Hemoglobin 10.8 g/dL (12.0-18.0); pH ABG 7.424 (7.350-7.450)
[2020-04-01 04:08] LABS: Device NASAL CANNULA; Modified Allen's Test Pass; Site Drawn RIGHT RADIAL
--- NOTE | 2020-04-01 06:16 | CONS_ITS ---
DATE OF CONSULTATION: 03/31/2020 REQUESTING PHYSICIAN: Dr. Anshu Roe. REASON FOR CONSULTATION: Bacteremia. HISTORY OF PRESENT ILLNESS: This is a 69-year-old female, who presented to the emergency room on 03/28/2020 with shortness of breath. At the time of admission, she had a chest x-ray with questionable bilateral infiltrates. At the time of admission, she was admitted with the diagnosis of question of pneumonia, rule out COVID. COVID PCR was negative from nasopharyngeal swab. Apparently, on admission, she also had an elevated white count and blood cultures collected at that time currently is showing up Staph aureus, susceptibilities pending. I was requested to see her for further evaluation. The patient is currently on Rocephin and azithromycin day #4. The patient at this point denied any headache. Minimal shortness of breath. No chest pain. No cough. No nausea. No vomiting. There are episodes of diarrhea since admission. The patient is currently extubated at the time of admission. She was intubated. PAST MEDICAL HISTORY: Atrial fibrillation, congestive heart failure, hypertension, left humeral fracture, morbidity, sepsis too, methicillin sensitive staph aureus bacteremia, bilateral lower extremity venostasis, and morbidly obese. PAST SURGICAL HISTORY: Hernia repair and appendectomy. FAMILY HISTORY: Positive for heart disease, hypertension, diabetes, cirrhosis of the liver, and esophageal cancer. SOCIAL HISTORY: Known smoker. Nondrinker. No substance abuse. MEDICATIONS AT HOME: Eliquis, Tylenol, furosemide, metoprolol, potassium, albuterol, atorvastatin, and tramadol. ALLERGIES: LEVOFLOXACIN, RASH; ADHESIVES, MILD ITCHING. MEDICATIONS IN THE HOSPITAL: She is currently on azithromycin and ceftriaxone, atorvastatin, apixaban, lactate, ferrous sulfate, miconazole, famotidine, and hydralazine. REVIEW OF SYSTEMS: No fever. No headache. No conjunctival injection. Nonicteric sclerae. No tinnitus. No earache. No sinus congestion. No sore throat. No pharyngeal injection. Positive shortness of breath associated with exertion. Minimal cough, nonproductive in nature. No pleurisy. Positive exertional dyspnea. No orthopnea, no PND. No chest pain. No palpitations or dizziness. No abdominal pain. No constipation. No diarrhea. No melena. No hematemesis. No hematochezia. Positive diarrhea since admission; watery, nonbloody. No dysuria. No hematuria. No lower extremity edema. No skin rash. No joint swelling. No syncope. No seizure activity. No petechiae. No hemorrhages. No purpura. No epistaxis. No gum bleeding. No photophobia. No nuchal rigidity. No seizure activity. PHYSICAL EXAMINATION: VITAL SIGNS: Temperature is 36, pulse rate of 111, respiratory rate of 30, blood pressure of 126/96, and saturating 93% on room air. HEAD AND NECK EXAM: Normocephalic and atraumatic. Neck is supple. There is no JVD. No lymphadenopathy. LUNGS: Good bilateral air entry with minimal scattered rhonchi. CARDIOVASCULAR SYSTEM: Positive S1 and S2. No S3 or S4. No murmur. ABDOMINAL EXAM: Positive bowel sounds. Nontender. No organomegaly. No mass. EXTREMITIES: No edema. SKIN EXAMINATION: Bilateral lower extremity stasis dermatitis. NEUROLOGICAL: She is alert, awake, and oriented. No focal deficits. LABORATORY EXAMINATION: SARS-CoV-2 RNA was negative. White count on admission was 11,000, currently 6,000, hemoglobin of 8, hematocrit is 27, platelets of 242, segmental of 81%. Sodium is 131, potassium of 3.4, chloride of 90, bicarb of 36, BUN 20, creatinine 0.8, AST of 20, ALT of 11, alkaline phosphatase of 86. BNP of 4,540 on admission. Albumin of 3.1. TSH of 0.329. Urinalysis: Nitrite is negative leukocyte esterase, wbc's of 1
[2020-04-01 06:19] LABS: Hematocrit 31.8 % (37.0-47.0); Hemoglobin 9.8 g/dL (12.0-15.0); Mean Corpuscular HGB Conc 30.8 g/dl (32-36); Mean Corpuscular Hemoglobin 29.5 pg (26-34); Mean Corpuscular Volume 95.8 fl (80-100); Mean Platelet Volume 9.6 fl (7.4-10.4); Platelet Count Result 338 k/mm3 (150-375); Red Blood Count 3.32 M/mm3 (4.2-5.4); Red Cell Distribution Width 16.7 % (11.5-14.5); White Blood Count 10.1 K/mm3 (4.5-10.0)
[2020-04-01] MEDS: METOPROLOL TARTRATE INJ 5 MG/5 ML VIAL IV PUSH (06:25)
[2020-04-01 06:33] LABS: Blood Urea Nitrogen 15 mg/dL (7-17); Calcium 8.9 mg/dL (8.4-10.2); Carbon Dioxide 39 mmol/L (22-30); Chloride 91 mmol/L (98-107); Estimated CRCL calculation 72 ml/min; Estimated Glomerular Filt Rate > 60; Glucose 108 mg/dL (65-105); Magnesium 2.1 mg/dL (1.6-2.3); Phosphorus 4.7 mg/dL (2.5-4.5); Potassium 3.6 mmol/L (3.4-5.0); Sodium 136 mmol/L (137-145)
[2020-04-01] MEDS: FERROUS SULFATE 324 MG TABLET PO (08:10)
[2020-04-01] MEDS: FAMOTIDINE 20 MG/2 ML VIAL IV PUSH ×2 (08:11→21:08)
[2020-04-01] MEDS: APIXABAN 5 MG TABLET PO ×2 (08:11→16:38)
[2020-04-01] MEDS: ATORVASTATIN 10 MG TABLET PO (08:11)
[2020-04-01] MEDS: MICONAZOLE NITRATE 2% CREAM 30 GM TUBE 1 APPLIC TOPICAL ×2 (08:11→21:08)
[2020-04-01] MEDS: LACTIC ACID 12% LOTION 225 BTL 1 APPLIC TOPICAL (08:12)
[2020-04-01] MEDS: TOLNAFTATE 1% POWDER 45 GM BTL 1 APPLIC TOPICAL ×2 (08:12→21:08)
--- NOTE | 2020-04-01 10:49 | PCDIET ---
Nutrition Follow-Up Complete: Nutrition Diagnosis: Inadequate oral intake related to oral intubation as evidenced by NPO status. Nutrition Goal: Patient to meet estimated nutritional needs. Goal in progress. Patient extubated on nasal cannula. Diet was just advanced to 2g sodium following swallow study which is appropriate, as tolerated. Last recorded weight is 119.7 kg which is decreased from last review. Bowel Motility: BM x 2 on 03/31/20. Labs Reviewed: Glu (108), Na (136) Meds Noted: Albuterol, Miralax, Rocephin, Vancomycin, Pepcid, Ferrous Sulfate Additional Notes: Buttocks and right lower leg macerated. Will follow closely to ensure goal met. Nutrition Monitoring and Evaluation: Follow up every 3 days.
--- NOTE | 2020-04-01 11:06 | PCPTNOTE ---
PT margarita attempted this a.m. - TLSO did not come with her from [facility]. did not want her up without TLSO. Will await for back orthosis to arrive before PT margarita will be attempted.
--- NOTE | 2020-04-01 11:07 | PCOTNOTE ---
OT evaluation attempted. Patient TLSO brace not at hospital. Per physician, hold therapy until brace arrives.
[2020-04-01] MEDS: CYCLOBENZAPRINE HCL 5 MG TABLET PO ×2 (11:11→16:41)
[2020-04-01] MEDS: TRAMADOL HCL 50 MG TABLET PO ×2 (11:11→17:10)
[2020-04-01] MEDS: FUROSEMIDE 40 MG TABLET PO (11:11)
[2020-04-01] MEDS: METOPROLOL TARTRATE 25 MG TABLET PO ×2 (11:14→21:07)
--- NOTE | 2020-04-01 11:47 | PM.IMPN ---
Progress Note: A&P Assessment and Plan (1) Acute respiratory failure: Qualifiers: Respiratory failure complication: hypercapnia Qualified Code(s): J96.02 - Acute respiratory failure with hypercapnia Code(s): J96.00 - Acute respiratory failure, unspecified whether with hypoxia or hypercapnia Status: Acute Assessment and Plan: Extubated successfully on 03/31/2020. Overall much improved. Now on 2 L of oxygen. COVID-19 testing negative. Now on BiPAP at night and p.r.n. during the day. Discussed with sap crm developer. Will transfer to medical floor with telemetry as stable. (2) Sepsis: Qualifiers: Acute respiratory failure type: with hypercapnia Sepsis acute organ dysfunction status: with acute organ dysfunction Sepsis type: sepsis due to unspecified organism Severe sepsis acute organ dysfunction type: acute respiratory failure Severe sepsis shock status: without septic shock Qualified Code(s): A41.9 - Sepsis, unspecified organism; R65.20 - Severe sepsis without septic shock; J96.02 - Acute respiratory failure with hypercapnia Code(s): A41.9 - Sepsis, unspecified organism Status: Acute Assessment and Plan: Criteria met on admission. Initial blood cultures now growing MERCEDES. Repeat blood cultures in process. Was treated for bacteremia with 0SSA on last admission in February 2020. Infectious disease consulted given repeat positive infection. Now transitioned to IV cefazolin after having been on IV vancomycin and IV ceftriaxone. Anticipate prolonged treatment with IV antibiotics. Suspect source is actually right ankle. WBC is 10.1 today. Will continue to monitor. (3) Atrial fibrillation: Qualifiers: Atrial fibrillation type: unspecified chronic Qualified Code(s): I48.20 - Chronic atrial fibrillation, unspecified Code(s): I48.91 - Unspecified atrial fibrillation Status: Chronic Assessment and Plan: Noted to be in atrial fibrillation with RVR on admission. Was started on IV amiodarone initially but subsequently discontinued and no longer on at this time. Telemetry reviewed on 04/01/2020 with atrial fibrillation with heart rate mildly elevated. Discussed with sap crm developer. IV metoprolol discontinued with home oral metoprolol resumed. Heart rate improved with this transition. Will continue Eliquis for anticoagulation. Will continue to monitor. (4) CAP (community acquired pneumonia): Qualifiers: Laterality: unspecified laterality Qualified Code(s): J18.9 - Pneumonia, unspecified organism Code(s): J18.9 - Pneumonia, unspecified organism Status: Ruled-out Assessment and Plan: Suspected on admission but ruled out at this point. Chest x-ray today with unchanged airspace opacities at the lung bases consistent with atelectasis versus pneumonia. Sepsis appears to be result of other issues. Now on IV cefazolin for 0SSA bacteremia. Continue other respiratory treatments as noted. (5) Hypertension: Qualifiers: Hypertension type: essential hypertension Qualified Code(s): I10 - Essential (primary) hypertension Code(s): I10 - Essential (primary) hypertension Status: Chronic Assessment and Plan: Blood pressure reviewed on 04/01/2020 and stable. Will continue to monitor on metoprolol. (6) Venous stasis dermatitis: Qualifiers: Laterality: right Qualified Code(s): I87.2 - Venous insufficiency (chronic) (peripheral) Code(s): I87.2 - Venous insufficiency (chronic) (peripheral) Status: Acute Assessment and Plan: Known chronic venous stasis changes. Continue local wound care. On IV cefazolin as noted above. (7) Anemia: Qualifiers: Anemia type: unspecified type Qualified Code(s): D64.9 - Anemia, unspecified Code(s): D64.9 - Anemia, unspecified Status: Acute Assessment and Plan: Known chronic anemia. Hemoglobin better at 9
--- NOTE | 2020-04-01 12:38 | PCSTNOTE ---
Please refer to the Bedside Swallow Evaluation in the EMR.
--- NOTE | 2020-04-01 13:40 | PC.NURSE ---
Received from [facility]/12 via bed at 1340 on 04/01/2020.
--- NOTE | 2020-04-01 14:01 | PC.NURSE ---
This patient, Trina Larkin, was transferred to [facility] on 04/01/20 at 1345. Personal belongings sent with patient. Belongings list checked and signed with receiving [ ]. Report given to SHO Patricia. Appropriate documentation sent with patient.
--- NOTE | 2020-04-01 14:36 | WPDINTPN ---
Progress Note: A&P Assessment and Plan (1) Acute respiratory failure: Qualifiers: Respiratory failure complication: hypercapnia Qualified Code(s): J96.02 - Acute respiratory failure with hypercapnia Code(s): J96.00 - Acute respiratory failure, unspecified whether with hypoxia or hypercapnia Status: Acute Assessment and Plan: Patient presented with increasing shortness of breath and confusion from the [facility]dc 03/28/2020. ABG showed hypercapnic respiratory failure - Patient was intubated on 03/28/2020 as she was tachypneic, dyspneic, was using accessory muscles of respiration, patient was intubated for impending respiratory failure - SARS-CoV-2 PCR negative - chest x-ray and ABGs reviewed. - continue bronchodilators - continue ceftriaxone and azithromycin for possible pneumonia - SUCCESSFULLY EXTUBATED on 03/31/2020, currently on 2 L nasal cannula, - place on BiPAP at night and p.r.n. during the day (2) Atrial fibrillation: Qualifiers: Atrial fibrillation type: unspecified chronic Qualified Code(s): I48.20 - Chronic atrial fibrillation, unspecified Code(s): I48.91 - Unspecified atrial fibrillation Status: Chronic Assessment and Plan: patient with history of AFib, was in AFib RVR, patient started on amiodarone infusion after a bolus of amiodarone in the ED. this was likely related to respiratory events - patient bradycardic in the 50s to 60s. Amiodarone has been discontinued already. - will continue metoprolol which is a home medication - continue to monitor heart rate On telemetry. - Echocardiogram 02/19/2020, was poor quality exam, EF 50-55% - continue Eliquis - will start metoprolol 25 mg p.o. q.12 hours she has a home dose. (3) Hypertension: Qualifiers: Hypertension type: essential hypertension Qualified Code(s): I10 - Essential (primary) hypertension Code(s): I10 - Essential (primary) hypertension Status: Chronic Assessment and Plan: patient with hypertension At the time presentation, patient started on nitroglycerin paste. - blood pressures are stable continue metoprolol P.o. - hydralazine p.r.n. IV - continue to monitor (4) Venous stasis dermatitis: Qualifiers: Laterality: right Qualified Code(s): I87.2 - Venous insufficiency (chronic) (peripheral) Code(s): I87.2 - Venous insufficiency (chronic) (peripheral) Status: Acute Assessment and Plan: chronic venous stasis changes bilateral lower extremities, no signs of cellulitis. (5) Morbid obesity: Code(s): E66.01 - Morbid (severe) obesity due to excess calories Status: Acute Assessment and Plan: will discuss with patient regarding weight loss, will have Documentation Lead evaluate the patient (6) DVT prophylaxis: Code(s): Z29.9 - Encounter for prophylactic measures, unspecified Status: Acute Assessment and Plan: DVT prophylaxis: continue Eliquis (7) Dietary counseling and surveillance: Code(s): Z71.3 - Dietary counseling and surveillance Status: Acute Assessment and Plan: patient passed for swallow test, will start oral diet (8) Bacteremia due to methicillin susceptible Staphylococcus aureus (MSSA): Code(s): R78.81 - Bacteremia; B95.61 - Methicillin susceptible Staphylococcus aureus infection as the cause of diseases classified elsewhere Status: Acute Assessment and Plan: Blood culture from 03/28 reported as positive for Staph aureus. It is sensitive to oxacillin. It is resistant to tetracycline clindamycin and erythromycin. - continue vancomycin and ceftriaxone - appreciate infectious disease evaluation recommendation - blood cultures repeated 03/30/2020 are pending Additional Plan discussed with patient updated with her condition and plan of care. I did update her regarding blood culture results and that she is on
--- NOTE | 2020-04-01 15:44 | WPDINFPN2 ---
Progress Note: A&P Assessment and Plan (1) Bacteremia due to methicillin susceptible Staphylococcus aureus (MSSA): Code(s): R78.81 - Bacteremia; B95.61 - Methicillin susceptible Staphylococcus aureus infection as the cause of diseases classified elsewhere Status: Acute Assessment and Plan: 1. MERCEDES bacteremia with infection, possible soft tissue source R ankle. 2. Levofloxacin allergy with rash 3. Morbid obesity REC Ancef #1 (antibiotic # 5), continue. Repeat BCs in process. Prolonged IV rx anticipated. Subjective Date/time seen: 04/01/20 15:44 Objective Data Vital Signs Vital Signs: Vital Signs - 24 hr 03/31/20 16:00 03/31/20 17:23 03/31/20 18:00 Temperature 36.4 C Pulse Rate 111 H 95 86 Respiratory Rate 30 H 28 H Blood Pressure 126/96 H 121/56 L Pulse Oximetry 93 95 03/31/20 20:00 03/31/20 22:00 03/31/20 23:35 Temperature 36.9 C Pulse Rate 101 H 104 H 125 H Respiratory Rate 34 H 26 H Blood Pressure 132/89 122/99 H Pulse Oximetry 94 100 04/01/20 00:00 04/01/20 02:00 04/01/20 04:00 Temperature Pulse Rate 86 106 H 122 H Respiratory Rate 24 H 27 H 32 H Blood Pressure 119/77 129/67 114/73 Pulse Oximetry 100 100 92 04/01/20 06:00 04/01/20 06:25 04/01/20 08:00 Temperature 36.4 C Pulse Rate 91 105 H 113 H Respiratory Rate 29 H 29 H Blood Pressure 117/76 136/76 Pulse Oximetry 96 98 04/01/20 08:54 04/01/20 10:00 04/01/20 11:14 Temperature Pulse Rate 102 H 118 H 134 H Respiratory Rate 28 H 28 H Blood Pressure 121/77 Pulse Oximetry 98 100 04/01/20 12:00 04/01/20 13:55 04/01/20 14:00 Temperature 36.7 C 36.2 C L Pulse Rate 86 95 85 Respiratory Rate 24 H 18 18 Blood Pressure 147/86 H 134/97 H Pulse Oximetry 100 100 100 Intake/Output Intake/Output: Intake & Output 03/29/20 03/30/20 03/31/20 04/01/20 23:59 23:59 23:59 23:59 Intake Total 3502 2188 2097 100 Output Total 950 6565 1775 1200 Balance 2552 1113 322 -1100 Meds/Results Medications: Active Medications Generic Name Dose Route Start Last Admin Trade Name Freq PRN Reason Stop Dose Admin Albuterol 2 puff 03/28/20 12:16 Proventil Hfa INHALATION Q6HRT PRN Shortness Of Breath Apixaban 5 mg 03/28/20 09:00 04/01/20 08:11 Eliquis PO 5 mg BID DEWAYNE Administration Atorvastatin Calcium 10 mg 03/28/20 09:00 04/01/20 08:11 Lipitor PO 10 mg DAILY DEWAYNE Administration Cyclobenzaprine HCl 5 mg 04/01/20 09:00 04/01/20 11:11 Flexeril PO 5 mg BID DWEAYNE Administration Famotidine 20 mg 03/30/20 21:00 04/01/20 08:11 Pepcid Iv IV PUSH 20 mg Q12HR DEWAYNE Administration Ferrous Sulfate 324 mg 03/29/20 08:00 04/01/20 08:10 Ferrous Sulfate PO 324 mg DAILY@0800 DEWAYNE Administration Furosemide 40 mg 04/01/20 09:00 04/01/20 11:11 Lasix Tablet PO 40 mg QAM DEWAYNE Administration Hydralazine HCl 10 mg 03/28/20 13:06 Apresoline Hcl Inj IV PUSH Q4H PRN Blood Pressure - High Cefazolin Sodium 2 gm in 50 mls @ 100 mls/hr 04/01/20 15:45 Ancef 2 Gm/D5w 50 Ml IVPB Q8H [facility] Lactic Acid 1 applic 03/29/20 09:00 04/01/20 08:12 Lac-Hydrin Lotion TOPICAL 04/28/20 09:01 1 applic DAILY [facility] Administration Metoprolol Tartrate 25 mg 04/01/20 12:00 04/01/20 11:14 Lopressor PO 25 mg Q12HR [facility] Administration Miconazole Nitrate 1 applic 03/29/20 09:00 04/01/20 08:11 Miconazole Nitrate 2% Cream TOPICAL 1 applic Q12HR DEWAYNE Administration Polyethylene Glycol 17 gm 03/28/20 09:00 04/01/20 08:12 Miralax PO Not Given DAILY [facility] Tolnaftate 1 applic 03/28/20 13:00 04/01/20 08:12 Tolnaftate 1% Powder TOPICAL 1 applic Q12HR DEWAYNE Administration Tramadol HCl 50 mg 04/01/20 12:00 04/01/20 11:11 Ultram PO 50 mg Q6HR DEWAYNE Administration Radiology Results: ITS Impressions Abdomen X-Ray 03/28/20 16:35 IMPRESSION: Feeding tube in position. Chest X-Ray
[2020-04-01] MEDS: ceFAZolin 2 GM/D5W 50 ML 2 GM/50 ML BAG IVPB (17:07)
[2020-04-02] VITALS (17 sets, daily range): BP systolic 116–145; BP diastolic 68–118; PULSE 73–138; RESP 15–25; TEMP 36.1–36.8; O2SAT 96–100; BMI 11.0
[2020-04-02 06:09] LABS: Hematocrit 29.1 % (37.0-47.0); Hemoglobin 8.7 g/dL (12.0-15.0); Mean Corpuscular HGB Conc 29.9 g/dl (32-36); Mean Corpuscular Hemoglobin 29.2 pg (26-34); Mean Corpuscular Volume 97.7 fl (80-100); Mean Platelet Volume 9.9 fl (7.4-10.4); Platelet Count Result 313 k/mm3 (150-375); Red Blood Count 2.98 M/mm3 (4.2-5.4); Red Cell Distribution Width 16.7 % (11.5-14.5); White Blood Count 8.9 K/mm3 (4.5-10.0)
[2020-04-02 06:22] LABS: Blood Urea Nitrogen 13 mg/dL (7-17); Calcium 8.7 mg/dL (8.4-10.2); Carbon Dioxide > 40 mmol/L (22-30); Chloride 91 mmol/L (98-107); Estimated CRCL calculation 69 ml/min; Estimated Glomerular Filt Rate > 60; Glucose 99 mg/dL (65-105); Magnesium 1.9 mg/dL (1.6-2.3); Phosphorus 3.8 mg/dL (2.5-4.5); Potassium 3.3 mmol/L (3.4-5.0); Sodium 134 mmol/L (137-145)
[2020-04-02] MEDS: METOPROLOL TARTRATE 25 MG TABLET PO ×2 (08:47→20:50)
[2020-04-02] MEDS: ceFAZolin 2 GM/D5W 50 ML 2 GM/50 ML BAG IVPB ×3 (09:32→16:06)
[2020-04-02] MEDS: TOLNAFTATE 1% POWDER 45 GM BTL 1 APPLIC TOPICAL ×2 (09:35→20:50)
[2020-04-02] MEDS: LACTIC ACID 12% LOTION 225 BTL 1 APPLIC TOPICAL (09:35)
[2020-04-02] MEDS: MICONAZOLE NITRATE 2% CREAM 30 GM TUBE 1 APPLIC TOPICAL ×2 (09:36→20:50)
[2020-04-02] MEDS: FAMOTIDINE 20 MG/2 ML VIAL IV PUSH ×2 (09:37→20:50)
[2020-04-02] MEDS: FUROSEMIDE 40 MG TABLET PO (09:37)
[2020-04-02] MEDS: ATORVASTATIN 10 MG TABLET PO (09:37)
[2020-04-02] MEDS: APIXABAN 5 MG TABLET PO ×2 (09:37→16:12)
[2020-04-02] MEDS: FERROUS SULFATE 324 MG TABLET PO (09:37)
--- NOTE | 2020-04-02 09:46 | PCOTNOTE ---
Attempted to see patient, patient declined to participate in any functional ADL task or exercise at this time secondary to patient feeling nauseated and vomiting. Will re-attempt to see patient later this date.
--- NOTE | 2020-04-02 09:52 | PM.IMPN ---
Progress Note: A&P Assessment and Plan (1) Acute respiratory failure: Qualifiers: Respiratory failure complication: hypercapnia Qualified Code(s): J96.02 - Acute respiratory failure with hypercapnia Code(s): J96.00 - Acute respiratory failure, unspecified whether with hypoxia or hypercapnia Status: Acute Assessment and Plan: Extubated successfully on 03/31/2020. Overall much improved. Now on 2 L of oxygen. COVID-19 testing negative. Now on BiPAP at night and p.r.n. during the day and tolerating. Continue to monitor. (2) Sepsis: Qualifiers: Acute respiratory failure type: with hypercapnia Sepsis acute organ dysfunction status: with acute organ dysfunction Sepsis type: sepsis due to unspecified organism Severe sepsis acute organ dysfunction type: acute respiratory failure Severe sepsis shock status: without septic shock Qualified Code(s): A41.9 - Sepsis, unspecified organism; R65.20 - Severe sepsis without septic shock; J96.02 - Acute respiratory failure with hypercapnia Code(s): A41.9 - Sepsis, unspecified organism Status: Acute Assessment and Plan: Criteria met on admission. Initial blood cultures on 03/28/20 now growing MERCEDES. Repeat blood cultures 03/30/20 NGTD. Was treated for bacteremia with 0SSA on last admission in February 2020 with IV abx x 15 days. Infectious disease consulted given repeat positive infection. Now transitioned to IV cefazolin after having been on IV vancomycin and IV ceftriaxone. Anticipate prolonged treatment with IV antibiotics. Suspect source is actually right ankle. WBC normal. Will continue to monitor. (3) Atrial fibrillation: Qualifiers: Atrial fibrillation type: unspecified chronic Qualified Code(s): I48.20 - Chronic atrial fibrillation, unspecified Code(s): I48.91 - Unspecified atrial fibrillation Status: Chronic Assessment and Plan: Noted to be in atrial fibrillation with RVR on admission. Was started on IV amiodarone initially but subsequently discontinued and no longer on at this time. Home oral metoprolol resumed. Continue Eliquis for anticoagulation. Will continue to monitor. (4) CAP (community acquired pneumonia): Qualifiers: Laterality: unspecified laterality Qualified Code(s): J18.9 - Pneumonia, unspecified organism Code(s): J18.9 - Pneumonia, unspecified organism Status: Ruled-out Assessment and Plan: Suspected on admission but ruled out at this point. Chest x-ray today with unchanged bilateral airspace opacities at the perihilar regiosn and lung bases consistent with atelectasis versus pneumonia. Now on IV cefazolin for 0SSA bacteremia. Continue other respiratory treatments as noted. (5) Hypertension: Qualifiers: Hypertension type: essential hypertension Qualified Code(s): I10 - Essential (primary) hypertension Code(s): I10 - Essential (primary) hypertension Status: Chronic Assessment and Plan: Blood pressure reviewed on 04/02/2020 and stable. Will continue to monitor on metoprolol. (6) Venous stasis dermatitis: Qualifiers: Laterality: right Qualified Code(s): I87.2 - Venous insufficiency (chronic) (peripheral) Code(s): I87.2 - Venous insufficiency (chronic) (peripheral) Status: Acute Assessment and Plan: Known chronic venous stasis changes. Continue local wound care. On IV cefazolin as noted above. (7) Anemia: Qualifiers: Anemia type: unspecified type Qualified Code(s): D64.9 - Anemia, unspecified Code(s): D64.9 - Anemia, unspecified Status: Acute Assessment and Plan: Known chronic anemia. Hemoglobin low but stable in the 8-9 range. Will continue to monitor. Transfuse if needed. Continue oral iron replacement. (8) DVT (deep venous thrombosis): Qualifiers: Affected thrombotic vein of extremity: u
--- NOTE | 2020-04-02 11:14 | PCOTNOTE ---
Per RN, do not see patient at this time as patient is still not feeling well. Will continue plan of care tomorrow, 04/03/2020.
--- NOTE | 2020-04-02 11:57 | PC.NURSE ---
Pt left the floor with transport for CT.
--- NOTE | 2020-04-02 14:00 | WPDINFPN2 ---
Progress Note: A&P Assessment and Plan (1) Bacteremia due to methicillin susceptible Staphylococcus aureus (MSSA): Code(s): R78.81 - Bacteremia; B95.61 - Methicillin susceptible Staphylococcus aureus infection as the cause of diseases classified elsewhere Status: Acute Assessment and Plan: 1. MERCEDES bacteremia with infection, possible soft tissue source R ankle. 2. Levofloxacin allergy with rash 3. Morbid obesity REC Ancef #2 (antibiotic # 6), continue. Repeat BCs ngsf 3 days. Prolonged IV rx anticipated, 4 -6 weeks. Subjective Date/time seen: 04/02/20 14:00 Interval history: nuasea which she blames on metoprolol Exam Narrative: Exam Narrative: afebrile Const: Other: obese Resp: Auscultation: clear to auscultation bilaterally Cardio: Rate: regular rate Rhythm: regular rhythm Heart sounds: no murmurs Objective Data Vital Signs Vital Signs: Vital Signs - 24 hr 04/01/20 16:00 04/01/20 16:08 04/01/20 20:00 Temperature Pulse Rate 92 105 H 117 H Respiratory Rate Blood Pressure Pulse Oximetry 04/01/20 20:59 04/01/20 21:07 04/02/20 00:00 Temperature 36.8 C Pulse Rate 120 H 73 Respiratory Rate 20 Blood Pressure 132/75 Pulse Oximetry 99 100 04/02/20 00:01 04/02/20 01:57 04/02/20 04:00 Temperature Pulse Rate 104 H 106 H 83 Respiratory Rate 24 H 22 H Blood Pressure Pulse Oximetry 97 96 04/02/20 05:07 04/02/20 08:00 04/02/20 08:47 Temperature 36.1 C L Pulse Rate 93 138 H 115 H Respiratory Rate 15 25 H Blood Pressure 138/82 145/118 H Pulse Oximetry 100 97 04/02/20 10:04 04/02/20 12:00 04/02/20 12:29 Temperature 36.1 C L Pulse Rate 100 83 84 Respiratory Rate 19 18 Blood Pressure 116/71 Pulse Oximetry 98 100 Intake/Output Intake/Output: Intake & Output 03/30/20 03/31/20 04/01/20 04/02/20 23:59 23:59 23:59 23:59 Intake Total 4454 9614 390 450 Output Total 2378 9505 2000 250 Balance 1113 322 -1610 200 Meds/Results Medications: Active Medications Generic Name Dose Route Start Last Admin Trade Name Kathi PRN Reason Stop Dose Admin Albuterol 2 puff 03/28/20 12:16 Proventil Hfa INHALATION Q6HRT PRN Shortness Of Breath Apixaban 5 mg 03/28/20 09:00 04/02/20 09:37 Eliquis PO 5 mg BID [facility] Administration Atorvastatin Calcium 10 mg 03/28/20 09:00 04/02/20 09:37 Lipitor PO 10 mg DAILY [facility] Administration Cyclobenzaprine HCl 5 mg 04/01/20 09:00 04/02/20 09:41 Flexeril PO Not Given BID [facility] Famotidine 20 mg 03/30/20 21:00 04/02/20 09:37 Pepcid Iv IV PUSH 20 mg Q12HR [facility] Administration Ferrous Sulfate 324 mg 03/29/20 08:00 04/02/20 09:37 Ferrous Sulfate PO 324 mg DAILY@0800 [facility] Administration Furosemide 40 mg 04/01/20 09:00 04/02/20 09:37 Lasix Tablet PO 40 mg QAM [facility] Administration Hydralazine HCl 10 mg 03/28/20 13:06 Apresoline Hcl Inj IV PUSH Q4H PRN Blood Pressure - High Cefazolin Sodium 2 gm in 50 mls @ 100 mls/hr 04/01/20 16:00 04/02/20 10:02 Ancef 2 Gm/D5w 50 Ml IVPB Infused Q8H [facility] Infusion Lactic Acid 1 applic 03/29/20 09:00 04/02/20 09:35 Lac-Hydrin Lotion TOPICAL 04/28/20 09:01 1 applic DAILY [facility] Administration Metoprolol Tartrate 25 mg 04/01/20 12:00 04/02/20 08:47 Lopressor PO 25 mg Q12HR [facility] Administration Miconazole Nitrate 1 applic 03/29/20 09:00 04/02/20 09:36 Miconazole Nitrate 2% Cream TOPICAL 1 applic Q12HR [facility] Administration Polyethylene Glycol 17 gm 03/28/20 09:00 04/02/20 09:36 Miralax PO Not Given DAILY [facility] Tolnaftate 1 applic 03/28/20 13:00 04/02/20 09:35 Tolnaftate 1% Powder TOPICAL 1 applic Q12HR [facility] Administration Tramadol HCl 50 mg 04/01/20 12:00 04/02/20 11:57 Ultram PO Not Given Q6HR [facility] Radiology Results: ITS Impressions Abdomen X-Ray 03/28/20 16:35 IMPRESSION: Feeding tube in position. Ches
[2020-04-02] MEDS: TRAMADOL HCL 50 MG TABLET PO ×2 (17:31)
[2020-04-03] VITALS (14 sets, daily range): BP systolic 115–145; BP diastolic 53–74; PULSE 74–101; RESP 15–21; TEMP 36.1–36.6; O2SAT 94–100
[2020-04-03] MEDS: TRAMADOL HCL 50 MG TABLET PO ×5 (00:15→23:16)
[2020-04-03] MEDS: ceFAZolin 2 GM/D5W 50 ML 2 GM/50 ML BAG IVPB ×4 (00:16→23:16)
[2020-04-03 06:09] LABS: Hematocrit 29.5 % (37.0-47.0); Hemoglobin 8.9 g/dL (12.0-15.0); Mean Corpuscular HGB Conc 30.2 g/dl (32-36); Mean Corpuscular Volume 96.1 fl (80-100); Platelet Count Result 344 k/mm3 (150-375); Red Blood Count 3.07 M/mm3 (4.2-5.4); Red Cell Distribution Width 16.5 % (11.5-14.5); White Blood Count 8.1 K/mm3 (4.5-10.0)
[2020-04-03 06:32] LABS: Blood Urea Nitrogen 11 mg/dL (7-17); CRP 6.6 mg/dL (<1.0); Calcium 8.7 mg/dL (8.4-10.2); Carbon Dioxide > 40 mmol/L (22-30); Chloride 91 mmol/L (98-107); Estimated CRCL calculation 81 ml/min; Estimated Glomerular Filt Rate > 60; Glucose 105 mg/dL (65-105); Magnesium 1.9 mg/dL (1.6-2.3); Potassium 3.4 mmol/L (3.4-5.0); Sodium 135 mmol/L (137-145)
[2020-04-03] MEDS: POTASSIUM CHLORIDE 20 MEQ TABLET PO (08:00)
[2020-04-03] MEDS: FERROUS SULFATE 324 MG TABLET PO (08:01)
[2020-04-03] MEDS: APIXABAN 5 MG TABLET PO ×2 (08:06→17:03)
[2020-04-03] MEDS: FAMOTIDINE 20 MG/2 ML VIAL IV PUSH ×2 (08:06→20:20)
[2020-04-03] MEDS: ATORVASTATIN 10 MG TABLET PO (08:06)
[2020-04-03] MEDS: FUROSEMIDE 40 MG TABLET PO (08:06)
[2020-04-03] MEDS: polyethylene glycoL 3350 17 GM POWD.PACK PO (08:07)
[2020-04-03] MEDS: TOLNAFTATE 1% POWDER 45 GM BTL 1 APPLIC TOPICAL ×2 (08:07→20:20)
[2020-04-03] MEDS: MICONAZOLE NITRATE 2% CREAM 30 GM TUBE 1 APPLIC TOPICAL ×2 (08:07→20:20)
[2020-04-03] MEDS: LACTIC ACID 12% LOTION 225 BTL 1 APPLIC TOPICAL (08:08)
[2020-04-03] MEDS: METOPROLOL TARTRATE 25 MG TABLET PO ×2 (08:09→20:20)
--- NOTE | 2020-04-03 13:11 | PCDIET ---
Nutrition Follow-Up Complete: Nutrition Diagnosis: Inadequate oral intake related to oral intubation as evidenced by NPO status. Nutrition Goal: Patient to meet estimated nutritional needs. Goal in progress. Patient had not been eating much until today (75-100% of breakfast and lunch meals). Diet is 2 gram sodium which is appropriate. Last recorded weight is 119.4 kg which is stable with last review. Bowel Motility: Last documented BM on 03/31/20 x 1. Labs Reviewed: Hgb (8.9), Hct (29.5), Na (135) Meds Noted: Albuterol, Ancef, Pepcid, Ferrous Sulfate, Lasix, Miralax, KCl Additional Notes: Maceration to abdomen, buttock and right lower leg. No new recommendations at this time. Will continue to monitor with same goal. Nutrition Monitoring and Evaluation: Follow up every 5 days.
--- NOTE | 2020-04-03 13:45 | WPDINFPN2 ---
Progress Note: A&P Assessment and Plan (1) Bacteremia due to methicillin susceptible Staphylococcus aureus (MSSA): Code(s): R78.81 - Bacteremia; B95.61 - Methicillin susceptible Staphylococcus aureus infection as the cause of diseases classified elsewhere Status: Acute Assessment and Plan: 1. MERCEDES bacteremia with infection, possible soft tissue source R ankle. 2. Levofloxacin allergy with rash 3. Morbid obesity REC Ancef #3 / 24 days (antibiotic # 7), continue through 04/24/20. Repeat BCs ngsf 4 days. Ok discharge planning. Subjective Date/time seen: 04/03/20 13:45 Interval history: feeling better Exam Narrative: Exam Narrative: afebrile Const: General: no acute distress Other: obese Eyes: General: appearance normal, both eyes and all related structures Resp: Effort & Inspection: normal respiratory effort Auscultation: clear to auscultation bilaterally Cardio: Rate: regular rate Rhythm: regular rhythm Heart sounds: no murmurs GI: Inspection: non-distended GI Palp: Yes Soft to palpation and No Tenderness to palpation present (GI) Skin: General skin exam: no rashes or lesions noted Objective Data Vital Signs Vital Signs: Vital Signs - 24 hr 04/02/20 16:00 04/02/20 16:30 04/02/20 19:58 Temperature 36.1 C L Pulse Rate 107 H 96 94 Respiratory Rate 22 H 22 H 18 Blood Pressure 137/68 Pulse Oximetry 97 97 100 04/02/20 20:00 04/02/20 20:19 04/02/20 20:50 Temperature Pulse Rate 111 H 111 H 90 Respiratory Rate Blood Pressure Pulse Oximetry 99 04/02/20 23:09 04/03/20 00:00 04/03/20 03:37 Temperature Pulse Rate 87 92 79 Respiratory Rate 25 H 19 Blood Pressure Pulse Oximetry 99 97 04/03/20 04:00 04/03/20 05:58 04/03/20 08:00 Temperature 36.1 C L Pulse Rate 80 91 90 Respiratory Rate 15 Blood Pressure 140/74 Pulse Oximetry 100 04/03/20 08:09 04/03/20 12:00 Temperature Pulse Rate 74 85 Respiratory Rate 15 Blood Pressure Pulse Oximetry 100 Intake/Output Intake/Output: Intake & Output 03/31/20 04/01/20 04/02/20 04/03/20 23:59 23:59 23:59 23:59 Intake Total 0086 390 740 640 Output Total 9672 6246 102 450 Balance 322 -1610 90 190 Meds/Results Medications: Active Medications Generic Name Dose Route Start Last Admin Trade Name Freq PRN Reason Stop Dose Admin Albuterol 2 puff 03/28/20 12:16 Proventil Hfa INHALATION Q6HRT PRN Shortness Of Breath Apixaban 5 mg 03/28/20 09:00 04/03/20 08:06 Eliquis PO 5 mg BID [facility] Administration Atorvastatin Calcium 10 mg 03/28/20 09:00 04/03/20 08:06 Lipitor PO 10 mg DAILY [facility] Administration Cyclobenzaprine HCl 5 mg 04/01/20 09:00 04/02/20 09:41 Flexeril PO Not Given BID [facility] Famotidine 20 mg 03/30/20 21:00 04/03/20 08:06 Pepcid Iv IV PUSH 20 mg Q12HR [facility] Administration Ferrous Sulfate 324 mg 03/29/20 08:00 04/03/20 08:01 Ferrous Sulfate PO 324 mg DAILY@0800 [facility] Administration Furosemide 40 mg 04/01/20 09:00 04/03/20 08:06 Lasix Tablet PO 40 mg QAM [facility] Administration Hydralazine HCl 10 mg 03/28/20 13:06 Apresoline Hcl Inj IV PUSH Q4H PRN Blood Pressure - High Cefazolin Sodium 2 gm in 50 mls @ 100 mls/hr 04/01/20 16:00 04/03/20 08:30 Ancef 2 Gm/D5w 50 Ml IVPB Infused Q8H [facility] Infusion Lactic Acid 1 applic 03/29/20 09:00 04/03/20 08:08 Lac-Hydrin Lotion TOPICAL 04/28/20 09:01 1 applic DAILY [facility] Administration Metoprolol Tartrate 25 mg 04/01/20 12:00 04/03/20 08:09 Lopressor PO 25 mg Q12HR [facility] Administration Miconazole Nitrate 1 applic 03/29/20 09:00 04/03/20 08:07 Miconazole Nitrate 2% Cream TOPICAL 1 applic Q12HR [facility] Administration Polyethylene Glycol 17 gm 03/28/20 09:00 04/03/20 08:07 Miralax PO 17 gm DAILY [facility] Administration Tolnaftate 1 applic 03/28/20 13:00 04/03/20 08:07 Tolnaftate 1% Powder TOPICAL 1 applic
--- NOTE | 2020-04-03 17:31 | PM.IMPN ---
Progress Note: A&P Assessment and Plan (1) Closed T6 spinal fracture: Qualifiers: Encounter type: subsequent encounter Fracture healing: with routine healing Fracture morphology: unspecified fracture morphology Qualified Code(s): S22.059D - Unspecified fracture of T5-T6 vertebra, subsequent encounter for fracture with routine healing Code(s): S22.059A - Unspecified fracture of T5-T6 vertebra, initial encounter for closed fracture Status: Acute Assessment and Plan: Identified at outside hospital in January 2020. PT/OT following. TLSO brace at bedside. Patient having significantly more weakness in her legs. CT brain showing no acute findings. MRI of L-spine and T-spine ordered yesterday. Only L-spine MRI performed today and showing no acute findings. T-spine MRI planned for tomorrow. (2) Acute respiratory failure: Qualifiers: Respiratory failure complication: hypercapnia Qualified Code(s): J96.02 - Acute respiratory failure with hypercapnia Code(s): J96.00 - Acute respiratory failure, unspecified whether with hypoxia or hypercapnia Status: Acute Assessment and Plan: Extubated successfully on 03/31/2020. Overall much improved. Stable on 2 L of oxygen. COVID-19 testing negative. Now on BiPAP at night and p.r.n. during the day and tolerating. Continue to monitor. Will give acetazolamide once. (3) Sepsis: Qualifiers: Acute respiratory failure type: with hypercapnia Sepsis acute organ dysfunction status: with acute organ dysfunction Sepsis type: sepsis due to unspecified organism Severe sepsis acute organ dysfunction type: acute respiratory failure Severe sepsis shock status: without septic shock Qualified Code(s): A41.9 - Sepsis, unspecified organism; R65.20 - Severe sepsis without septic shock; J96.02 - Acute respiratory failure with hypercapnia Code(s): A41.9 - Sepsis, unspecified organism Status: Acute Assessment and Plan: Criteria met on admission. Initial blood cultures on 03/28/20 now growing MERCEDES. Repeat blood cultures 03/30/20 NGTD. Was treated for bacteremia with 0SSA on last admission in February 2020 with IV abx x 15 days. Infectious disease consulted given repeat positive infection. Now transitioned to IV cefazolin after having been on IV vancomycin and IV ceftriaxone. Anticipate prolonged treatment with IV antibiotics. Suspect source is right ankle. WBC normal. Will continue to monitor. Place PICC line for plans for long term care social worker abx. (4) Atrial fibrillation: Qualifiers: Atrial fibrillation type: unspecified chronic Qualified Code(s): I48.20 - Chronic atrial fibrillation, unspecified Code(s): I48.91 - Unspecified atrial fibrillation Status: Chronic Assessment and Plan: Noted to be in atrial fibrillation with RVR on admission. Was started on IV amiodarone initially but subsequently discontinued. Home oral metoprolol resumed and HR remaining stable. Continue Eliquis for anticoagulation. Will continue to monitor. (5) CAP (community acquired pneumonia): Qualifiers: Laterality: unspecified laterality Qualified Code(s): J18.9 - Pneumonia, unspecified organism Code(s): J18.9 - Pneumonia, unspecified organism Status: Ruled-out Assessment and Plan: Suspected on admission but ruled out at this point. Chest x-ray today with unchanged bilateral airspace opacities at the perihilar regiosn and lung bases consistent with atelectasis versus pneumonia. Now on IV cefazolin for 0SSA bacteremia. Continue other respiratory treatments as noted. (6) Hypertension: Qualifiers: Hypertension type: essential hypertension Qualified Code(s): I10 - Essential (primary) hypertension Code(s): I10 - Essential (primary) hypertension Status: Chronic Assessment and Plan: Blood pressure reviewed on 04/03/2020 and stable. Will continue
[2020-04-04] VITALS (11 sets, daily range): BP systolic 132–150; BP diastolic 75–99; PULSE 69–100; RESP 18–22; TEMP 35.6–36.7; O2SAT 97–100
[2020-04-04] MEDS: TRAMADOL HCL 50 MG TABLET PO ×3 (05:44→17:20)
[2020-04-04 06:48] LABS: Hematocrit 29.7 % (37.0-47.0); Hemoglobin 8.8 g/dL (12.0-15.0); Mean Corpuscular HGB Conc 29.6 g/dl (32-36); Mean Corpuscular Hemoglobin 29.4 pg (26-34); Mean Corpuscular Volume 99.3 fl (80-100); Mean Platelet Volume 9.4 fl (7.4-10.4); Platelet Count Result 368 k/mm3 (150-375); Red Blood Count 2.99 M/mm3 (4.2-5.4); Red Cell Distribution Width 16.4 % (11.5-14.5); White Blood Count 9.1 K/mm3 (4.5-10.0)
[2020-04-04 07:08] LABS: Blood Urea Nitrogen 9 mg/dL (7-17); Calcium 8.9 mg/dL (8.4-10.2); Carbon Dioxide > 40 mmol/L (22-30); Chloride 88 mmol/L (98-107); Estimated CRCL calculation 72 ml/min; Estimated Glomerular Filt Rate > 60; Glucose 101 mg/dL (65-105); Potassium 3.3 mmol/L (3.4-5.0); Sodium 134 mmol/L (137-145)
[2020-04-04] MEDS: POTASSIUM CHLORIDE 20 MEQ TABLET PO (08:50)
[2020-04-04] MEDS: ceFAZolin 2 GM/D5W 50 ML 2 GM/50 ML BAG IVPB ×2 (08:50→16:29)
[2020-04-04] MEDS: ATORVASTATIN 10 MG TABLET PO (08:51)
[2020-04-04] MEDS: METOPROLOL TARTRATE 25 MG TABLET PO ×2 (08:51→21:57)
[2020-04-04] MEDS: FERROUS SULFATE 324 MG TABLET PO (08:51)
[2020-04-04] MEDS: APIXABAN 5 MG TABLET PO ×2 (08:51→16:29)
[2020-04-04] MEDS: FUROSEMIDE 40 MG TABLET PO (08:51)
[2020-04-04] MEDS: polyethylene glycoL 3350 17 GM POWD.PACK PO (08:52)
[2020-04-04] MEDS: TOLNAFTATE 1% POWDER 45 GM BTL 1 APPLIC TOPICAL ×2 (08:52→21:57)
[2020-04-04] MEDS: FAMOTIDINE 20 MG/2 ML VIAL IV PUSH ×2 (08:52→21:57)
[2020-04-04] MEDS: LACTIC ACID 12% LOTION 225 BTL 1 APPLIC TOPICAL (08:53)
[2020-04-04] MEDS: MICONAZOLE NITRATE 2% CREAM 30 GM TUBE 1 APPLIC TOPICAL ×2 (08:53→21:57)
--- NOTE | 2020-04-04 11:27 | PM.IMPN ---
Progress Note: A&P Assessment and Plan (1) Closed T6 spinal fracture: Qualifiers: Encounter type: subsequent encounter Fracture healing: with routine healing Fracture morphology: unspecified fracture morphology Qualified Code(s): S22.059D - Unspecified fracture of T5-T6 vertebra, subsequent encounter for fracture with routine healing Code(s): S22.059A - Unspecified fracture of T5-T6 vertebra, initial encounter for closed fracture Status: Acute Assessment and Plan: Identified at outside hospital in January 2020. PT/OT following. TLSO brace at bedside. Patient having significantly more weakness in her legs. CT brain showing no acute findings. MRI of L-spine and T-spine ordered 04/02/20. L-spine MRI performed on 04/03/20 and showing no acute findings. Unclear why T-spine not performed at that time but plan for MRI T-spine today. Neuro consult MRI of the T-spine showing burst fractures of T5, T6, and T7 with worsening from 02/19/2020 and abnormal spinal cord findings from T4 to T7, consistent with contusion. 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 Contacted [facility] and they have agreed to accept the patinet in transfer. Patient informed as was dtr. Decadron started. Called later and [facility] not able to accept patient this evening. (2) Sepsis: Qualifiers: Acute respiratory failure type: with hypercapnia Sepsis acute organ dysfunction status: with acute organ dysfunction Sepsis type: sepsis due to unspecified organism Severe sepsis acute organ dysfunction type: acute respiratory failure Severe sepsis shock status: without septic shock Qualified Code(s): A41.9 - Sepsis, unspecified organism; R65.20 - Severe sepsis without septic shock; J96.02 - Acute respiratory failure with hypercapnia Code(s): A41.9 - Sepsis, unspecified organism Status: Acute Assessment and Plan: Criteria met on admission. Initial blood cultures on 03/28/20 now growing MERCEDES. Repeat blood cultures 03/30/20 negative. Was treated for bacteremia with 0SSA on last admission in February 2020 with IV abx x 15 days. Infectious disease consulted given repeat positive infection. Now transitioned to IV cefazolin after having been on IV vancomycin and IV ceftriaxone. Plan for Ancef Day 4 of 24. Suspect source is right ankle. WBC remains normal. Will continue to monitor. Midline to be placed today and will remove central line. (3) Acute respiratory failure: Qualifiers: Respiratory failure complication: hypercapnia Qualified Code(s): J96.02 - Acute respiratory failure with hypercapnia Code(s): J96.00 - Acute respiratory failure, unspecified whether with hypoxia or hypercapnia Status: Acute Assessment and Plan: Extubated successfully on 03/31/2020. Overall much improved. Stable on 2 L of oxygen. COVID-19 testing negative. Now on BiPAP at night and p.r.n. during the day. She refused PAP therapy last night. Encouraged compliance. Continue to monitor. (4) Atrial fibrillation: Qualifiers: Atrial fibrillation type: unspecified chronic Qualified Code(s): I48.20 - Chronic atrial fibrillation, unspecified Code(s): I48.91 - Unspecified atrial fibrillation Status: Chronic Assessment and Plan: Noted to be in atrial fibrillation with RVR on admission. Was started on IV amiodarone initially but subsequently discontinued. Home oral metoprolol resumed and HR remaining stable. Continue Eliquis for anticoagulation. Will continue to monitor. Okay to stop tele. (5) CAP (community acquired pneumonia): Qualifiers: Laterality: unspecified laterality Qualified Code(s): J18.9 - Pneumonia, unspecified organism Code(s): J18.9 - Pneumonia, unspecified organism Status: Ruled-out Assessment and Plan: Suspected on admission but ruled out at this point. Chest x-ray
[2020-04-04] MEDS: LIDOCAINE HCL 1% LOCAL INJ 2 ML AMPUL 5 ML INFILTRATE (11:41)
--- NOTE | 2020-04-04 12:51 | PCOTNOTE ---
Attempted to see patient this pm, however patient was off floor at this time for MRI.
[2020-04-04] MEDS: NEOMYCIN/POLYMYXIN/BACITRACIN OINTMENT PACKET 1 PACKET (13:45)
--- NOTE | 2020-04-04 14:33 | WPDINFPN2 ---
Progress Note: A&P Assessment and Plan (1) Bacteremia due to methicillin susceptible Staphylococcus aureus (MSSA): Code(s): R78.81 - Bacteremia; B95.61 - Methicillin susceptible Staphylococcus aureus infection as the cause of diseases classified elsewhere Status: Acute Assessment and Plan: 1. MERCEDES bacteremia with infection, possible soft tissue source R ankle. Improving 2. Levofloxacin allergy with rash 3. Morbid obesity REC Ancef #4 / 24 days (antibiotic # 8), continue through 04/24/20. Repeat BCs ng final. Ok discharge planning. Subjective Date/time seen: 04/04/20 14:33 Interval history: just had cvc out, no complaints Exam Narrative: Exam Narrative: afebrile Const: General: no acute distress Resp: Effort & Inspection: normal respiratory effort Auscultation: clear to auscultation bilaterally Cardio: Rate: regular rate Rhythm: regular rhythm Heart sounds: no murmurs Objective Data Vital Signs Vital Signs: Vital Signs - 24 hr 04/03/20 15:10 04/03/20 16:00 04/03/20 20:00 Temperature 36.6 C Pulse Rate 78 83 75 Respiratory Rate 16 Blood Pressure 145/53 H Pulse Oximetry 94 04/03/20 20:20 04/03/20 20:32 04/03/20 22:00 Temperature 36.2 C L Pulse Rate 79 79 86 Respiratory Rate 16 21 H Blood Pressure 115/63 Pulse Oximetry 94 100 04/03/20 22:25 04/04/20 00:00 04/04/20 04:00 Temperature Pulse Rate 101 H 75 72 Respiratory Rate Blood Pressure Pulse Oximetry 98 04/04/20 06:00 04/04/20 08:00 04/04/20 08:51 Temperature 36.7 C Pulse Rate 69 80 100 Respiratory Rate 21 H Blood Pressure 132/75 Pulse Oximetry 100 04/04/20 09:03 Temperature Pulse Rate 100 Respiratory Rate Blood Pressure Pulse Oximetry 100 Intake/Output Intake/Output: Intake & Output 04/01/20 04/02/20 04/03/20 04/04/20 23:59 23:59 23:59 23:59 Intake Total 797 150 7436 660 Output Total 1999 465 631 1108 Balance -1610 90 140 -390 Meds/Results Medications: Active Medications Generic Name Dose Route Start Last Admin Trade Name Freq PRN Reason Stop Dose Admin Albuterol 2 puff 05/07/20 12:16 Proventil Hfa INHALATION Q6HRT PRN Shortness Of Breath Apixaban 5 mg 03/28/20 09:00 04/04/20 08:51 Eliquis PO 5 mg BID [facility] Administration Atorvastatin Calcium 10 mg 03/28/20 09:00 04/04/20 08:51 Lipitor PO 10 mg DAILY [facility] Administration Cyclobenzaprine HCl 5 mg 04/01/20 09:00 04/02/20 09:41 Flexeril PO Not Given BID [facility] Famotidine 20 mg 03/30/20 21:00 04/04/20 08:52 Pepcid Iv IV PUSH 20 mg Q12HR [facility] Administration Ferrous Sulfate 324 mg 03/29/20 08:00 04/04/20 08:51 Ferrous Sulfate PO 324 mg DAILY@0800 [facility] Administration Furosemide 40 mg 04/01/20 09:00 04/04/20 08:51 Lasix Tablet PO 40 mg QAM [facility] Administration Hydralazine HCl 10 mg 03/28/20 13:06 Apresoline Hcl Inj IV PUSH Q4H PRN Blood Pressure - High Cefazolin Sodium 2 gm in 50 mls @ 100 mls/hr 04/01/20 16:00 04/04/20 09:20 Ancef 2 Gm/D5w 50 Ml IVPB Infused Q8H [facility] Infusion Lactic Acid 1 applic 03/29/20 09:00 04/04/20 08:53 Lac-Hydrin Lotion TOPICAL 04/28/20 09:01 1 applic DAILY [facility] Administration Metoprolol Tartrate 25 mg 04/01/20 12:00 04/04/20 08:51 Lopressor PO 25 mg Q12HR [facility] Administration Miconazole Nitrate 1 applic 03/29/20 09:00 04/04/20 08:53 Miconazole Nitrate 2% Cream TOPICAL 1 applic Q12HR [facility] Administration Polyethylene Glycol 17 gm 03/28/20 09:00 04/04/20 08:52 Miralax PO 17 gm DAILY [facility] Administration Tolnaftate 1 applic 03/28/20 13:00 04/04/20 08:52 Tolnaftate 1% Powder TOPICAL 1 applic Q12HR [facility] Administration Tramadol HCl 50 mg 04/01/20 12:00 04/04/20 11:46 Ultram PO 50 mg Q6HR [facility] Administration Radiology Results: ITS Impressions Abdomen X-Ray 03/28/20 16:35 IMPRESSION: Feeding tube in position.
--- NOTE | 2020-04-04 17:13 | CONS_ITS ---
DATE OF CONSULTATION: 04/04/2020 HISTORY OF PRESENT ILLNESS: This 69-year-old female admitted to the hospital initially in February in [facility] with a recovery from humeral fracture subsequent to fall on 02/12/2020. She was treated with TLSO, developed respiratory arrest, was intubated with placement of central line. She was becoming short of breath. She had some infiltration bilaterally on the chest x-ray. The positive ruling of COVID-19. In the past, she had a history of 1. Atrial fibrillation. 2. Congestive heart failure. 3. DVT, on chronic anticoagulation. 4. Hypertension. 5. Left humeral fracture. Initially, she was at [facility], admitted on 03/11/2020 for the MRSA bacteremia with acute hypercapnic respiratory failure, though her COVID-19 was negative at that time. Subsequently, she developed hypoxia. Her oxygen was increased to goal for oxygen saturation which is 90%, but she was definitely . She was brought to the ER, had findings. WBC 11.6, hemoglobin is 8.9. She was being maintained on 5 L per nasal cannula. At that time, her C-reactive protein was 38.1. ProBNP 4540. Troponin was normal x1. She was on nitroglycerin paste with her hypertension. She was transferred to ICU for further management, where she was found to be in shortness of breath, though she was awake, alert, and oriented x3. She remained in atrial fibrillation with RVR with a heart rate of 100-125 beats per minute. She was given Lasix. She was intubated and a central line placed and withdrawn in ER and she was started on Zithromax and Rocephin. PAST MEDICAL HISTORY: In the past, she has a history of atrial fibrillation, congestive heart failure, hypertension, morbid obesity, left humeral fracture, sepsis due to methicillin-resistant Staphylococcus aureus. Subsequently, she was in the intensive care with the same diagnoses; respiratory failure, atrial fibrillation, hypertension, chronic peripheral venous insufficiency. She was followed by different physicians, specifically industrial equipment wirer and Infectious Disease personnel while in the intensive care and then transferred to the regular floor. As per the review of the most recent notes of Dr. Paulino Miner, she has a T6 spinal fracture, sepsis with acute organic dysfunction, respiratory failure, atrial fibrillation, hypertension, venous insufficiency, and anemia. She was extubated on 03/31/2020, was able to breathe normal, but she had minimal functions in her legs. Her examination was consistent with irregular heart beats. TLC in place. No pedal edema, 1/6 bilateral lower extremity strength. Neuro consultation has been obtained because of all these neurological problems. Most recent investigations include lumbar spine MRI on 04/03, which documented no acute finding, mild to moderate lumbar spondylosis. Chest x-ray, stable small pleural effusion with cardiomegaly. Head CT scan, nonspecific cerebral white matter disease, and hematologically, her WBC is 9.1, hemoglobin 8.8, and the platelet count is 368. Her electrolytes were sodium 134, potassium 3.3, chloride 88, CO2 more than 40. C-reactive protein 6.6. She has had multiple cultures and she has also undergone AL on 03/11 and at that time, a AL with left ventricular chamber dimension normal, normal systolic function, biatrial dilatation, trivial MR, and no indication of the bacterial endocarditis. MEDICATIONS: Her most recent medications include atorvastatin 10 mg daily, cholecalciferol 25 mcg daily, cyclobenzaprine 5 mg twice a day, Eliquis 5 mg twice a day, ferrous sulfate 325 daily, furosemide 40 daily, metoprolol 25 twice a day, potassium chloride 40 mEq daily, Tolnaftate 1 application q.12 hours, tramadol 50 mg p.r.n. Neurology consultation has been obtained at this stage, I will examine th
[2020-04-05] MEDS: DEXAMETHASONE SOD PHOS INJ 4 MG/ML VIAL IV PUSH ×3 (00:06→11:49)
[2020-04-05] MEDS: TRAMADOL HCL 50 MG TABLET PO ×3 (00:06→11:49)
[2020-04-05] MEDS: ceFAZolin 2 GM/D5W 50 ML 2 GM/50 ML BAG IVPB ×3 (00:07→15:15)
[2020-04-05 05:02] VITALS: BP 120/70; PULSE 90; RESP 22; TEMP 36.6; O2SAT 100
[2020-04-05 06:45] LABS: Blood Urea Nitrogen 10 mg/dL (7-17); Carbon Dioxide > 40 mmol/L (22-30); Chloride 92 mmol/L (98-107); Estimated CRCL calculation 70 ml/min; Estimated Glomerular Filt Rate > 60; Glucose 147 mg/dL (65-105); Potassium 4.4 mmol/L (3.4-5.0); Sodium 136 mmol/L (137-145)
[2020-04-05 08:17] VITALS: PULSE 90
[2020-04-05] MEDS: FUROSEMIDE 40 MG TABLET PO (08:17)
[2020-04-05] MEDS: METOPROLOL TARTRATE 25 MG TABLET PO (08:17)
[2020-04-05] MEDS: APIXABAN 5 MG TABLET PO (08:17)
[2020-04-05] MEDS: FERROUS SULFATE 324 MG TABLET PO (08:17)
[2020-04-05] MEDS: ATORVASTATIN 10 MG TABLET PO (08:17)
[2020-04-05] MEDS: TOLNAFTATE 1% POWDER 45 GM BTL 1 APPLIC TOPICAL (08:18)
[2020-04-05] MEDS: FAMOTIDINE 20 MG/2 ML VIAL IV PUSH (08:18)
[2020-04-05] MEDS: MICONAZOLE NITRATE 2% CREAM 30 GM TUBE 1 APPLIC TOPICAL (08:18)
[2020-04-05] MEDS: LACTIC ACID 12% LOTION 225 BTL 1 APPLIC TOPICAL (08:18)
[2020-04-05 09:02] VITALS: O2SAT 94
--- NOTE | 2020-04-05 13:01 | WPDNEUROPN ---
Progress Note: A&P Assessment and Plan (1) Acute and chronic respiratory failure, unspecified whether with hypoxia or hypercapnia: Qualifiers: Respiratory failure complication: hypoxia and hypercapnia Qualified Code(s): J96.21 - Acute and chronic respiratory failure with hypoxia; J96.22 - Acute and chronic respiratory failure with hypercapnia Code(s): J96.20 - Acute and chronic respiratory failure, unspecified whether with hypoxia or hypercapnia Status: Acute (2) CAP (community acquired pneumonia): Qualifiers: Laterality: unspecified laterality Qualified Code(s): J18.9 - Pneumonia, unspecified organism Code(s): J18.9 - Pneumonia, unspecified organism Status: Ruled-out (3) Suspected COVID-19 virus infection: Code(s): R68.89 - Other general symptoms and signs Status: Ruled-out (4) Dietary counseling and surveillance: Code(s): Z71.3 - Dietary counseling and surveillance Status: Acute (5) Sinus pause: Code(s): I45.5 - Other specified heart block Status: Acute (6) Bacteremia due to methicillin susceptible Staphylococcus aureus (MSSA): Code(s): R78.81 - Bacteremia; B95.61 - Methicillin susceptible Staphylococcus aureus infection as the cause of diseases classified elsewhere Status: Acute (7) DVT prophylaxis: Code(s): Z29.9 - Encounter for prophylactic measures, unspecified Status: Acute (8) Gram-positive cocci bacteremia: Code(s): R78.81 - Bacteremia Status: Acute (9) Anemia: Qualifiers: Anemia type: unspecified type Qualified Code(s): D64.9 - Anemia, unspecified Code(s): D64.9 - Anemia, unspecified Status: Acute (10) Sepsis: Qualifiers: Sepsis type: sepsis due to unspecified organism Sepsis acute organ dysfunction status: with acute organ dysfunction Severe sepsis acute organ dysfunction type: acute respiratory failure Acute respiratory failure type: with hypercapnia Severe sepsis shock status: without septic shock Qualified Code(s): A41.9 - Sepsis, unspecified organism; R65.20 - Severe sepsis without septic shock; J96.02 - Acute respiratory failure with hypercapnia Code(s): A41.9 - Sepsis, unspecified organism Status: Acute (11) Acute respiratory failure: Qualifiers: Respiratory failure complication: hypercapnia Qualified Code(s): J96.02 - Acute respiratory failure with hypercapnia Code(s): J96.00 - Acute respiratory failure, unspecified whether with hypoxia or hypercapnia Status: Acute (12) Ileus: Code(s): K56.7 - Ileus, unspecified Status: Resolved (13) Left humeral fracture: Qualifiers: Encounter type: sequela Humerus Location: proximal Fracture type: closed Fracture morphology: unspecified fracture morphology Qualified Code(s): S42.202S - Unspecified fracture of upper end of left humerus, sequela Code(s): S42.302A - Unspecified fracture of shaft of humerus, left arm, initial encounter for closed fracture Status: Acute (14) Dyspnea: Qualifiers: Dyspnea type: shortness of breath Qualified Code(s): R06.02 - Shortness of breath Code(s): R06.00 - Dyspnea, unspecified Status: Acute (15) Cellulitis: Qualifiers: Site of cellulitis: extremity Site of cellulitis of extremity: lower extremity Laterality: right Qualified Code(s): L03.115 - Cellulitis of right lower limb Code(s): L03.90 - Cellulitis, unspecified Status: Acute (16) Atrial fibrillation: Qualifiers: Atrial fibrillation type: unspecified chronic Qualified Code(s): I48.20 - Chronic atrial fibrillation, unspecified Code(s): I48.91 - Unspecified atrial fibrillation Status: Chronic (17) Congestive heart failure: Qualifiers: Heart failure type: diastolic Heart failure chronicity: acute on chronic Qualified Code(s): I50.33 - Acute on
[2020-04-05 14:00] VITALS: BP 145/77; PULSE 94; RESP 18; TEMP 35.9; O2SAT 98
--- NOTE | 2020-04-05 17:32 | PC.NURSE ---
Patient transferred to [facility] at 1730 on 04/05/2020. Report to SHO Forte.
--- NOTE | 2020-04-05 19:24 | PM.TDS ---
Transfer Discharge Sum: Prov Provider Date of admission: 03/28/20 10:47 Primary care physician: Liz MirandaLizzy Admitting clinician: Anshu Roe MD Consults: 03/28/20 Wound/ET Consult Routine Reason for Consult:: Right lower extremity wound 03/31/20 Consult to Physician Routine Comment: CALLED DR. ORTIZ REGARDING CONSULT Consulting Provider: Sudhakar Ortiz freight caller/MD group to consult: Infectious disease Reason for consultation: MSSA bacteremia Has provider been notified: Yes 04/04/20 11:26 Consult to Physician Routine Comment: Consulting Provider: Russell Bhat freight caller/MD group to consult: Neuro Reason for consultation: leg paralysis Has provider been notified: Yes Attending physician on discharge: Erwin Miner Discharging clinician: Erwin Miner Anticipated date of transfer: 04/05/20 Receiving physician/facility: [facility] DS: Diagnosis Admitting Diagnosis Admitting Diagnosis: Sepsis, unspecified organism Discharge Diagnosis (1) Closed T6 spinal fracture: Qualifiers: Encounter type: subsequent encounter Fracture healing: with routine healing Fracture morphology: unspecified fracture morphology Qualified Code(s): S22.059D - Unspecified fracture of T5-T6 vertebra, subsequent encounter for fracture with routine healing Code(s): S22.059A - Unspecified fracture of T5-T6 vertebra, initial encounter for closed fracture Status: Acute Assessment and Plan: Identified at outside hospital in January 2020 after a fall with T6 fracture. Patient was able to walk a little prior to admission (mostly in chair) but she was having increasing back pain limiting her ability to participate in therapy per patient. Exams on admission did show some lower extremity strength. Patient was extubated on 03/31 and she stated she was up to the chair with brace on 04/01 but therapy notes only show patient at side of bed x5 minutes and was total assist. Also PT notes on 04/01 state: no active motion present with RLE and very minimal motion in the LLE. On my initial evaluation on 04/02/20, patient was anxious and upset with refusing medications. Patient was having significantly weakness in her legs. CT brain showing no acute findings. MRI of L-spine and T-spine ordered 04/02/20. Concern for perispinal abscess in the L-spine given her recurrent bacteremia and that her numbness was mostly in the distal lower extremity. T-spine added due to recent T6 fracture. No falls or trauma. L-spine MRI performed on 04/03/20 and showing no acute findings. Unclear why T-spine not performed at the same time but MRI T-spine completed on 04/04 showing burst fractures of T5, T6, and T7 with worsening from 02/19/2020 and abnormal spinal cord findings from T4 to T7, consistent with contusion. 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 Decadron started and [facility] contacted. They have agreed to accept the patinet in transfer but were unable to accept patient that evening. Patient able to be transferred on 04/05/20. Prior to transfer, patient had minimal improvement in her LE weakness. (2) Sepsis: Qualifiers: Acute respiratory failure type: with hypercapnia Sepsis acute organ dysfunction status: with acute organ dysfunction Sepsis type: sepsis due to unspecified organism Severe sepsis acute organ dysfunction type: acute respiratory failure Severe sepsis shock status: without septic shock Qualified Code(s): A41.9 - Sepsis, unspecified organism; R65.20 - Severe sepsis without septic shock; J96.02 - Acute respiratory failure with hypercapnia Code(s): A41.9 - Sepsis, unspecified organism Status: Acute Assessment and Plan: Criteria met on admission. Initial blood cultures on 03/28/20 growing MERCEDES. Repeat blood cultures 03/30/20 negative. Was treated for bacteremia with 0SSA on last admission in February 2020 with
== END 2020-04-05 17:30 | disposition short-term general hospital (02) | DRG 871 ==
LOC: ANHED 08:29 → ANHICU 10:58 → ANH3MED 04-01 13:52
PROVIDERS: Hospitalist; Internal Medicine; Internal Medicine Critical Care Medicine; Internal Medicine Infectious Disease; Nurse Practitioner; Admitting Provider Internal Medicine; Emergency Provider Emergency Medicine; PCP Internal Medicine Infectious Disease; Visit Provider Internal Medicine
DX: A41.01 Sepsis due to Methicillin susceptible Staphylococcus aureus (principal); J96.21 Acute and chronic respiratory failure with hypoxia; J96.22 Acute and chronic respiratory failure with hypercapnia; I48.20 Chronic atrial fibrillation, unspecified; I82.509 Chronic embolism and thrombosis of unspecified deep veins of unspecified lower extremity; Z68.42 Body mass index [BMI] 45.0-49.9, adult; Z16.29 Resistance to other single specified antibiotic; S22.059D Unspecified fracture of T5-T6 vertebra, subsequent encounter for fracture with routine healing; R65.20 Severe sepsis without septic shock; Z20.828 Contact with and (suspected) exposure to other viral communicable diseases; I87.2 Venous insufficiency (chronic) (peripheral); D64.9 Anemia, unspecified; I11.0 Hypertensive heart disease with heart failure; I50.9 Heart failure, unspecified; E66.01 Morbid (severe) obesity due to excess calories; W19.XXXD Unspecified fall, subsequent encounter; Z79.01 Long term (current) use of anticoagulants; Z87.891 Personal history of nicotine dependence
CPT/HCPCS: 36415; 36569; 36600; 70450; 71045; 72157; 72158; 80048; 80053; 80202; 81001; 82375; 82805; 83050; 83605; 83735; 83880; 84100; 84439; 84443; 84480; 84484; 85025; 85027; 85610; 85730; 86140; 87040; 87070; 87077; 87186; 87205; 87635; 92610; 93005; 94002; 94003; 94660; 96365; 96367; 96375; 97110; 97162; 97166; 97530; 99291; A9270; A9577; C1751; J0282; J0456; J0690; J0696; J1100; J1120; J1940; J2250; J2930; J3010; J3370; J3475; J7030; U0003

== ENCOUNTER 2020-06-10 16:12 | Inpatient (IN) | payer MEDICARE, MEDICAID, SELFPAY ==
[2020-06-10] VITALS (12 sets, daily range): BP systolic 110–126; BP diastolic 60–86; PULSE 90–132; RESP 18–29; TEMP 36.5–36.8; O2SAT 92–98; BMI 47.0
--- NOTE | ~2020-06-10 | XR_ITS ---
XR chest 1V portable DATE: 06/16/2020 06:23 INDICATION: Acute respiratory failure TECHNIQUE: Portable AP chest on 06/16/2020 at 0513 hours COMPARISON: 06/15/2020 portable AP chest at 0547 hours FINDINGS: ET tube tip is 1.6 cm above marah; ideal range is 2-5 cm. There is a nasogastric tube in t he stomach. Right internal jugular central venous catheter tip overlies the superior vena cava. No pneumothorax. Cardiomegaly. There is increased cardiac density and left lower lobe air bronchogram, consistent with left lower lobe atelectasis. There is mild shift of the heart mediastinum to the left. There are mild patchy infiltrates and/atelectasis in the right mid and lower lung zone. Right-sided i nfiltrates and left perihilar infiltrate appear improved since 06/15/2020. Mild right pleural effusion and possible left pleural effusion persists. No pneumothorax. IMPRESSION: Persistent left lower lobe atelectasis/consolidation Cardiomegaly Mild improvement of bilateral infiltrates since 06/15/2020 ET tube tip 1.6 cm above marah; ideal range is 2-5 cm Reviewed, dictated and finalized at location A.
--- NOTE | ~2020-06-10 | XR_ITS ---
EXAMINATION: XR chest 1V portable DATE: 06/14/2020 06:14 INDICATION: Acute respiratory failure. TECHNIQUE: A single frontal view of the chest was obtained. COMPARISON: Chest single view 06/13/2020 FINDINGS: The patient is rotated to her left. There are small pleural effusions. There are airspace o pacities in the perihilar regions and at the lung bases. No pneumothorax. Cardiomegaly is noted. The endotracheal tube tip is 9 mm above the marah. The nasogastric tube tip is beyond the inferior devante n of the radiograph, but at least to the stomach. A right internal jugular central venous catheter is seen with tip in the superior vena cava. IMPRESSION: 1. Small pleural effusions with worsening on the right. 2. Airspace opacities in the perihilar regions and at the lung bases with worsening on the right, con sistent with atelectasis versus pneumonia. 3. Cardiomegaly. Reviewed, dictated and finalized at location A. IMPRESSION: 1. Small pleural effusions with worsening on the right. 2. Airspace opacities in the perihilar regions and at the lung bases with worse beth on the right, consistent with atelectasis versus pneumonia. 3. Cardiomegaly.
--- NOTE | ~2020-06-10 | XR_ITS ---
XR chest 1V portable DATE: 06/15/2020 06:14 INDICATION: Acute respiratory failure TECHNIQUE: Portable AP chest on 06/15/2020 at 0547 hours COMPARISON: Portable AP chest on 06/14/2020 at 0534 hours FINDINGS: ET tube is approximately 1.8 cm above marah; ideal range is 205 cm. A nasogastric tube is noted in the stomach. Right internal jugular central venous catheter tip overlies the superior vena cava. No pneumothorax i s evident. Cardiomegaly. There is pulmonary vascular congestion and redistribution. There are persistent bilateral infiltrate spur emanating in the perihilar and lower lung zones, with particular prominence in the [cardiac area, left lower lobe. Diffusion diagnosis includes pulmonary e charlie as well as pneumonia, aspiration. Mild bilateral pleural effusions are suggested. Diffuse prominent osteopenia. IMPRESSION: Cardiomegaly, congestive changes, bilateral infiltrates, left lower lobe atelectasis and/ or consolidation, small pleural effusions. The findings are relatively stable compared to 06/14/2020 Reviewed, dictated and finalized at location A. IMPRESSION: Cardiomegaly, congestive changes, bilateral infiltrates, left lower lobe atelectasis and/or consolidation, small pleural effusions. The findings a re relatively stable compared to 06/14/2020
--- NOTE | ~2020-06-10 | XR_ITS ---
EXAMINATION: XR chest 1V portable INDICATION: Shortness of breath TECHNIQUE: Portable AP chest at 1651 hours COMPARISON: 04/03/2020 FINDINGS: There is stable cardiomegaly. Moderate size right and small left pleural effusions are pres ent. There are diffuse right lung airspace opacities and left basilar airspace opacities. No pneumoth orax is identified. An old left-sided humerus fracture is noted. IMPRESSION: 1. Stable cardiomegaly. 2. Diffuse airspace opacities of the right lung and left basilar airspace opacities, consistent with atelectasis versus pneumonia. 3. Small left and moderate size right pleural effusions. Reviewed, dictated and finalized at location A. IMPRESSION: 1. Stable cardiomegaly. 2. Diffuse airspace opacities of the right lung and left basilar airspace opaci ties, consistent with atelectasis versus pneumonia. 3. Small left and moderate size right pleural effusions.
--- NOTE | ~2020-06-10 | XR_ITS ---
EXAMINATION: XR chest 1V portable EXAM DATE: 06/17/2020 06:03 INDICATION: Acute respiratory distress. TECHNIQUE: Portable AP frontal chest x-ray was obtained. Comparison is made to prior examination from 06/16/2020. FINDINGS: The nasogastric and endotracheal tubes have been removed. There is a right-sided IJ venous line remaining in position. Small to moderate left pleural effusion, small right pleural effusion. Persistent retrocardiac nonsp ecific airspace disease. There is no pneumothorax suspected. The cardiomediastinal silhouette is p rominent but magnified on this AP technique. There is old left humeral neck fracture. IMPRESSION: 1. Extubated. Right IJ line in position. 2. Stable airspace disease and other findings as above. Reviewed, dictated and finalized at location A.
--- NOTE | ~2020-06-10 | XR_ITS ---
EXAMINATION: XR chest 1V portable DATE: 06/13/2020 06:06 INDICATION: Acute respiratory failure. TECHNIQUE: A single frontal view of the chest was obtained. COMPARISON: Chest single view 06/12/2020 FINDINGS: The patient is rotated to her left. Sensitivity is decreased by obesity. There are airspace opacities in all right lung zones and in the left mid and lower lung zones. There are small right an d moderate-sized left pleural effusions. No pneumothorax. Cardiomegaly is noted. There is a prominent left paracardial fat pad. The endotracheal tube tip is 1.6 cm above the marah. A right internal jug ular central venous catheter is seen with tip in the superior vena cava. There are old healed fractur es of the proximal humeri. The nasogastric tube tip is in the stomach. IMPRESSION: 1. Worsened airspace opacities in right lung and left mid and lower lung zones, consistent with atele ctasis versus pneumonia. 2. Small right and moderate-sized left pleural effusions with worsening on the left. 3. Cardiomegaly. Reviewed, dictated and finalized at location A. IMPRESSION: 1. Worsened airspace opacities in right lung and left mid and lower lung zones, consistent with atelectasis versus pneumonia. 2. Small right and moderate-sized left pleural effusions with worsening on the left. 3. Cardiomegaly.
--- NOTE | ~2020-06-10 | XR_ITS ---
EXAMINATION: XR abdomen NG/feed tube insert DATE: 06/12/2020 03:54 INDICATION: Orogastric tube placement. TECHNIQUE: A semiupright view of the abdomen was obtained. COMPARISON: Abdomen single view 03/28/2020, CT 02/19/2020 FINDINGS: The lower abdomen is excluded. There is a stent in right common iliac vein. There are no vi sible dilated loops of bowel. The nasogastric tube tip is in the stomach. IMPRESSION: 1. Nasogastric tube tip in the stomach. Reviewed, dictated and finalized at location A.
--- NOTE | ~2020-06-10 | XR_ITS ---
EXAMINATION: XR barium swallow modified DATE: 06/17/2020 13:53 INDICATION: Recent intubation. TECHNIQUE: The patient was given barium-containing material of multiple consistencies to swallow by t he speech pathologist while I performed fluoroscopy. Fluoroscopy exposure time was 1.8 minutes. The n umber of fluoroscopy images saved to the PACS was 1. Dose-area product was 1.529 Gy-cm^2. FINDINGS: There was no laryngeal penetration or aspiration. IMPRESSION: 1. No laryngeal penetration or aspiration. 2. Please refer to the speech therapy report for recommendations. Reviewed, dictated and finalized at location A.
--- NOTE | ~2020-06-10 | XR_ITS ---
EXAMINATION: XR chest ET placement DATE: 06/12/2020 03:54 INDICATION: Intubation. Central line placement. TECHNIQUE: A single frontal view of the chest was obtained. COMPARISON: Chest single view 06/10/2020 FINDINGS: The patient is rotated to her left. There are small pleural effusions. There are airspace o pacities in the perihilar regions and at the lung bases. No pneumothorax. Cardiomegaly is noted. Calc ified mediastinal lymph nodes are consistent with old granulomatous disease. The endotracheal tube ti p is 9 mm above the marah. The nasogastric tube tip is in the stomach. A right internal jugular cent ral venous catheter is seen with tip in the superior vena cava. There is also fracture of proximal ri ght humerus. IMPRESSION: 1. Stable small pleural effusions. 2. Airspace opacities in the perihilar regions and at the lung bases with worsening on the left, cons istent with atelectasis versus pneumonia. 3. Cardiomegaly. Reviewed, dictated and finalized at location A. IMPRESSION: 1. Stable small pleural effusions. 2. Airspace opacities in the perihilar regions and at the lung bases with worse beth on the left, consistent with atelectasis versus pneumonia. 3. Cardiomegaly.
--- NOTE | 2020-06-10 16:37 | ECG_ITS ---
Measurements Intervals [place] Rate: 122 P: ND: 0 QRS: -10 QRSD: 105 T: 75 QT: 342 QTc: 489 Interpretive Statements ATRIAL FIBRILLATION WITH RAPID VENTRICULAR RESPONSE INCOMPLETE RIGHT BUNDLE BRANCH BLOCK NONSPECIFIC ST & T-WAVE ABNORMALITY- INF/HIGH LAT LEADS BASELINE ARTIFACT- I, II, III, AVR, AVL, AVF, V2 ABNORMAL ECG Electronically Signed On 06-10-2020 18:00:59 CDT by Mike Carrasquillo D.O.
--- NOTE | 2020-06-10 16:45 | ED.GENADULT ---
HPI - General Adult General Chief complaint: Unspecified Stated complaint: low pulse ox History of Present Illness HPI narrative: Patient is a 69 y/o female complaining mild SOB starting several hours ago. She has COPD and she is on O2 chronically. She denies any fever, cough or chest pain. There is no alleviating or exacerbating factor. NH reports extremely low sat, although the reported sat is likely not accurate. Related Data Home Medications Medication Instructions Recorded Confirmed Eliquis 5 mg PO BID 02/12/20 03/28/20 acetaminophen 650 mg PO Q4H PRN 02/12/20 03/28/20 cholecalciferol (vitamin D3) 25 mcg PO DAILY 02/12/20 03/28/20 ferrous sulfate 325 mg PO DAILY 02/12/20 03/28/20 albuterol sulfate [Ventolin HFA] 2 puff INHALATION Q6H PRN 03/28/20 03/28/20 ammonium lactate 1 applic TOPICAL DAILY 03/28/20 03/28/20 atorvastatin 10 mg PO DAILY 03/28/20 03/28/20 cyclobenzaprine 5 mg PO BID 03/28/20 03/28/20 tramadol 50 mg PO Q6H 03/28/20 03/28/20 Allergies Allergy/AdvReac Type Severity Reaction Status Date / Time levofloxacin [From Levaquin] Allergy Mild Rash Verified 06/10/20 18:46 adhesive tape AdvReac Mild Itching Verified 06/10/20 18:46 TaperDex Allergy Unknown Uncoded 06/10/20 18:46 Review of Systems Constitutional: Constitutional: Denies chills, Denies fever(s), Denies headache(s) and Denies weakness Eyes: Eyes: Denies blurry vision ENT: Denies headache(s) and Denies neck pain Cardiovascular: Cardiovascular: Denies chest pain and Denies dyspnea Respiratory: Respiratory: Denies cough and Reports dyspnea Gastrointestinal: Gastrointestinal: Denies abdominal pain, Denies diarrhea, Denies nausea and Denies vomiting Genitourinary: Genitourinary: Denies hematuria and Denies dysuria Musculoskeletal: Musculoskeletal: Denies back pain and Denies neck pain Neurologic: Denies headache(s) and Denies weakness [facility] Past Medical History Medical History Atrial fibrillation Congestive heart failure DVT (deep venous thrombosis) Hypertension Left humeral fracture Morbid obesity Sepsis due to methicillin susceptible Staphylococcus aureus (MSSA) with acute hypercapnic respiratory failure Venous stasis dermatitis Surgical History Surgical History H/O hernia repair Ventral S/P appendectomy Family History Family History Sibling Esophagus cancer Liver disease Heart disease Father Heart disease Mother Heart disease Hypertension Father Hypertension Diabetes mellitus Social History Social History Social History: The patient is . She has 3 sons and 2 daughters. She lives with 1 son. She was independent prior to this fracture. She used to smoke and quit over 30 years ago. Smoking status: Unknown if ever smoked Tobacco type: cigarettes Second hand tobacco smoke exposure: No Alcohol intake: unknown Substance use: unknown Substance use type: does not use Gender identity (if verbalized by the patient): Female Sexual Orientation (if Verbalized by the Patient): Straight or Heterosexual Spiritual care concerns: No Agree to blood products: Yes Exam Const: General: no acute distress and well developed Orientation/consciousness: oriented to person, oriented to place, oriented to time and patient oriented x3 HENMT: Head: normocephalic Ears: external ears normal General nose exam: Normal external nose present Eyes: General: appearance normal, both eyes and all related structures Conjunctivae: conjunctivae normal Neck: Neck: normal visual inspection and full ROM Chest: Chest palpation & inspection: normal inspection of the chest and no tenderness Resp: Effort & Inspection: normal respiratory effort Auscultation: clear to auscultation bilaterally Cardio: Rate: tac
[2020-06-10 17:18] LABS: Basophils Percent Auto 0.2 % (0.2-1.2); Eosinophils Absolute Auto 0.1 K/mm3 (0-0.3); Eosinophils Percent Auto 0.3 % (0-4.4); Hematocrit 31.4 % (37.0-47.0); Hemoglobin 9.3 g/dL (12.0-15.0); Immature Granulocyte Absolute 0.08 K/mm3 (0.00-0.031); Immature Granulocyte Percent A 0.5 % (0-0.5); Lymphocytes Absolute Auto 0.81 K/mm3 (0.9-3.2); Lymphocytes Percent Auto 5.2 % (18.3-44.2); Mean Corpuscular HGB Conc 29.6 g/dl (32-36); Mean Corpuscular Hemoglobin 31.6 pg (26-34); Mean Corpuscular Volume 106.8 fl (80-100); Mean Platelet Volume 9.6 fl (7.4-10.4); Monocytes Absolute Auto 1.6 K/mm3 (0.1-0.6); Monocytes Percent Auto 10.5 % (2.6-8.5); Neutrophils Percent Auto 83.3 % (45.5-73.1); Platelet Count Result 272 k/mm3 (150-375); Red Blood Count 2.94 M/mm3 (4.2-5.4); Red Cell Distribution Width 13.7 % (11.5-14.5); White Blood Count 15.6 K/mm3 (4.5-10.0)
[2020-06-10 17:22] LABS: Alveolar/Arterial O2 Gradient 75.1 mmHg; Base Excess ABG 28.8 mEq/l (+/-2.0); Fractional Inspired Oxygen 40 %; HCO3 ABG 59.2 mEq/l (22.0-26.0); Oxygen Content ABG 15.4 %vol (16.0-22.0); Oxygen Saturation ABG 96.7 % (95.0-100.0); PO2 ABG 96.4 mmHg (80.0-100.0); PO2 FiO2 Ratio Arterial Blood 2.41 %; Total Hemoglobin 11.4 g/dL (12.0-18.0); pH ABG 7.395 (7.350-7.450)
[2020-06-10 17:23] LABS: Device NASAL CANNULA; Modified Allen's Test Pass; PCO2 ABG 98.9 mmHg (35.0-45.0); Site Drawn LEFT RADIAL
[2020-06-10 17:27] LABS: Hypochromasia 2+ (NORMAL); Platelet Estimate Adequate (Adequate); Stomatocytes 2+ (NORMAL)
[2020-06-10 17:29] LABS: INR 1.7; Prothrombin Time 19.8 Seconds (11.1-14.7)
[2020-06-10 17:30] LABS: Partial Thromboplastin Time 47.5 SECONDS (22.3-36.8)
[2020-06-10 17:33] LABS: Alanine Aminotransferase 6 U/L (4-35); Albumin Level 3.4 g/dL (3.5-5.1); Alkaline Phosphatase 86 U/L (38-126); Aspartate Amino Transferase 20 U/L (14-36); Blood Urea Nitrogen 20 mg/dL (7-17); Calcium 8.6 mg/dL (8.4-10.2); Carbon Dioxide > 40 mmol/L (22-30); Chloride 76 mmol/L (98-107); Estimated CRCL calculation 84 ml/min; Estimated Glomerular Filt Rate > 60; Glucose 136 mg/dL (65-105); Potassium 3.3 mmol/L (3.4-5.0); Sodium 138 mmol/L (137-145)
[2020-06-10 17:41] LABS: NT Pro B Type Natriuretic Pept 3630 PG/ML (5-100); Troponin I < 0.012 ng/mL (0.000-0.034)
[2020-06-10] MEDS: FUROSEMIDE INJ 40 MG/4 ML VIAL IV PUSH (18:25)
[2020-06-10] MEDS: methylPREDNISolone SOD SUCC 125 MG VIAL IV PUSH (18:25)
[2020-06-10] MEDS: dilTIAZem HCl INJ 25 MG/5 ML VIAL IV PUSH (18:30)
--- NOTE | 2020-06-10 18:40 | PC.NURSE ---
PT HR NOTED TO BE 89-98, INFORMED ERP MANOLO, HE STATES TO CANCEL THE BOLUS AND BEGIN THE DRIP AT 5MCG/HOUR.
--- NOTE | 2020-06-10 18:47 | PC.NURSE ---
PT UNABLE TO REMEMBER THE NAME OF THE PHARMACY SHE UTILIZES.
--- NOTE | 2020-06-10 19:00 | PC.NURSE ---
PT REPORT ATTEMPTED TO BE CALLED TO [facility], RN INFORMED ME THAT WILL PUT THE NURSES IN THE IMU AT A 6/1 RATIO AND THEY WERE CALLING THE HOUSE SUP TO FIND ANOTHER OPTION, AND THEY ARE TO CALL THE ED BACK.
--- NOTE | 2020-06-10 19:01 | PC.NURSE ---
SPOKE WITH ABBEY AT [facility] WHO STATES SHE WILL ATTEMPT TO FAX MED LIST AGAIN.
--- NOTE | 2020-06-10 19:13 | PC.NURSE ---
REPORT GIVEN BEDSIDE TO SHO ZEPEDA AT THIS TIME, SHE HAS ASSUMED PT CARE.
--- NOTE | 2020-06-10 20:50 | PM.IMHP ---
H&P: HPI History of Present Illness Chief complaint: copd, chf Narrative: Trina Larkin is a 69 year old female Who has a history of congestive heart failure last echo February 28 of this year. EF was noted to be 60-65%. The patient is from [facility]. The patient was last admitted here and march of last year. She was admitted for acute on chronic respiratory failure. She was checked for COVID at that time was found to be Negative. Patient was found to have Sarah bacteremia and was seen by Dr. amaro. It was noted that patient was supposed to be on antibiotics for 4-6 weeks. Patient was Transferred to [facility] neural surgery due to severe central canal stenosis. The patient is now at [facility]. She is chronically on oxygen there but was not sure how many Liters of o2 She has been on 2 or 3. the patient came in complaining of shortness of breath starting several hours ago. It was noted that she has COPD but the patient does not recall this. And also CHF. Patient was found to be in AFib Patient was ordered for an diltiazem drip. She was given IV Lasix. She was given Solu-Medrol. Chest x-ray was read as stable cardiomegaly. Diffuse airspace opacities of right lung in the left basilar airspace opacities consistent with atelectasis versus pneumonia small left and moderate size right pleural effusion. This is similar to her chest x-ray back in March. Patient's oxygen was bumped up to the 3 L per nasal cannula and she stated she was feeling better. Patient's ABDs from today pH was 7.395. PCO2 was 98.9. PO2 was 96% bicarb 59.2. She was given Lasix IV Solu-Medrol and Cardizem IV push in the emergency room. Patient's heart rate is controlled in the 90s but she is still in AFib. Date of service is 06/10/2020 Review of Systems Review of Systems: Narrative: patient is a very poor historian had to obtain information from her records. All systems reviewed & are unremarkable except as noted in HPI and below ROS unobtainable: Yes unobtainable due to mental status Constitutional: Constitutional: Reports as per HPI and Reports no additional constitutional complaints Eyes: Eyes: Reports as per HPI and Reports no additional eye complaints ENT: Reports system reviewed and no additional complaints, except as documented and Reports Normal hearing present Cardiovascular: Cardiovascular: Reports no additional cardiovascular complaints Respiratory: Respiratory: Reports no additional respiratory complaints and Reports no additional respiratory complaints Gastrointestinal: Gastrointestinal: Reports as per HPI and Reports no additional gastrointestinal complaints Musculoskeletal: Musculoskeletal: Reports no additional musculoskeletal complaints Integumentary/Breasts: Skin/Breast: Reports system reviewed and no additional complaints, except as docu and Reports as per HPI Neurologic: Reports system reviewed and no additional complaints, except as documented, Reports as per HPI and Reports Normal hearing present Psychiatric: Psychiatric: Reports no additional psychiatric complaints and Reports as per HPI Endocrine: Endocrine: Reports no additional endocrine complaints Hematologic/Lymphatic: Hematologic/Lymphatic: Reports no additional hematologic/lymphatic complaints Allergic/Immunologic: Allergic/Immunologic: Reports no additional allergic/immunologic complaints [facility] Past Medical History Medical History (Updated 06/10/20 @ 21:00 by Luz Thomas NP) Atrial fibrillation Congestive heart failure DVT (deep venous thrombosis) on Eliquis Hypertension Left humeral fracture Morbid obesity Sepsis due to methicillin susceptible Staphylococcus aureus (MSSA) with acute hypercapnic respiratory failure Stable burst fracture of t5-T6 vertebra, initial encounter for closed fracture Venous stasis dermatitis Surgical History Surgical History (Reviewed 06/10/20 @ 21:01 by Luz Thomas NP
[2020-06-10 20:54] LABS: Troponin I < 0.012 ng/mL (0.000-0.034)
--- NOTE | 2020-06-10 21:56 | ADMGEN ---
This patient, Trina Larkin, was admitted to IMU Room 214-01. Patient/family oriented to hospital policies and general routines including ID bracelet, bed and alarms, visiting hours, pain management, procedures, bathroom and other care routines, personal items, smoking policy, room service/diet, and visiting hours. Valuables list has been completed. Information on how to activate the Rapid Response Team has been discussed. Patient/Family are encouraged to report perceived risks to care and to ask questions if they do not understand what they are told or what they should do.
[2020-06-10 22:36] LABS: Base Excess ABG 27.3 mEq/l (+/-2.0); Fractional Inspired Oxygen 32 %; HCO3 ABG 56.9 mEq/l (22.0-26.0); Oxygen Content ABG 13.7 %vol (16.0-22.0); Oxygen Saturation ABG 93.7 % (95.0-100.0); PCO2 ABG 93.9 mmHg (35.0-45.0); PO2 ABG 74.3 mmHg (80.0-100.0); PO2 FiO2 Ratio Arterial Blood 2.32 %; Total Hemoglobin 10.5 g/dL (12.0-18.0)
[2020-06-10 22:37] LABS: Device NASAL CANNULA; Site Drawn RIGHT BRACHIAL
[2020-06-10 23:22] LABS: Troponin I < 0.012 ng/mL (0.000-0.034)
[2020-06-11] VITALS (22 sets, daily range): BP systolic 100–150; BP diastolic 62–79; PULSE 63–104; RESP 18–38; TEMP 35.5–36.7; O2SAT 88–97
[2020-06-11] MEDS: SIMVASTATIN 20 MG TABLET PO (00:40)
[2020-06-11] MEDS: GABAPENTIN 300 MG CAPSULE PO ×2 (00:40→20:42)
[2020-06-11] MEDS: METOPROLOL TARTRATE 12.5 MG TABLET PO ×3 (00:40→20:42)
[2020-06-11] MEDS: methylPREDNISolone SOD SUCC 125 MG VIAL 60 MG IV PUSH ×2 (05:08→13:04)
[2020-06-11 10:17] LABS: Hematocrit 32.3 % (37.0-47.0); Hemoglobin 9.6 g/dL (12.0-15.0); Mean Corpuscular HGB Conc 29.7 g/dl (32-36); Mean Corpuscular Hemoglobin 32.1 pg (26-34); Mean Platelet Volume 9.8 fl (7.4-10.4); Platelet Count Result 300 k/mm3 (150-375); Red Blood Count 2.99 M/mm3 (4.2-5.4); Red Cell Distribution Width 13.6 % (11.5-14.5); White Blood Count 14.7 K/mm3 (4.5-10.0)
[2020-06-11 10:32] LABS: Albumin Level 3.6 g/dL (3.5-5.1); Blood Urea Nitrogen 24 mg/dL (7-17); Calcium 8.6 mg/dL (8.4-10.2); Carbon Dioxide > 40 mmol/L (22-30); Chloride 77 mmol/L (98-107); Estimated CRCL calculation 82 ml/min; Estimated Glomerular Filt Rate > 60; Glucose 215 mg/dL (65-105); Magnesium 1.8 mg/dL (1.6-2.3); Phosphorus 5.2 mg/dL (2.5-4.5); Potassium 3.8 mmol/L (3.4-5.0); Sodium 138 mmol/L (137-145)
[2020-06-11] MEDS: polyethylene glycoL 3350 17 GM POWD.PACK PO (13:03)
[2020-06-11] MEDS: ASCORBIC ACID 500 MG TABLET PO (13:04)
[2020-06-11] MEDS: APIXABAN 5 MG TABLET PO ×2 (13:04→16:49)
[2020-06-11] MEDS: SALINE 0.65% NAS SOLN 44 ML BTL 1 SPRAY NASAL ×2 (13:04→16:49)
[2020-06-11] MEDS: FERROUS SULFATE 324 MG TABLET PO (13:04)
[2020-06-11] MEDS: SPIRONOLACTONE 25 MG TABLET PO (13:04)
[2020-06-11] MEDS: BETAMETHASONE/CLOTRIMAZOLE CR 15 GM TUBE 1 APPLIC TOPICAL ×2 (13:04→16:49)
[2020-06-11] MEDS: MULTIVITAMINS THERAPEUTIC TAB (*BKC) 1 TABLET PO (13:04)
[2020-06-11] MEDS: ACIDOPHILUS/BULGARICUS CHEWABLE TABLET 1 TABLET PO ×2 (13:04→16:48)
[2020-06-11] MEDS: CHOLECALCIFEROL 1,000 UNIT TABLET 1000 UNITS PO (13:04)
--- NOTE | 2020-06-11 17:33 | PM.IMPN ---
Progress Note: A&P Assessment and Plan (1) Acute and chronic respiratory failure, unspecified whether with hypoxia or hypercapnia: Qualifiers: Respiratory failure complication: hypoxia and hypercapnia Qualified Code(s): J96.21 - Acute and chronic respiratory failure with hypoxia; J96.22 - Acute and chronic respiratory failure with hypercapnia Code(s): J96.20 - Acute and chronic respiratory failure, unspecified whether with hypoxia or hypercapnia Status: Acute Assessment and Plan: Patient had ABG with normal pH but elevated pCO2 at 94. She states she is compliant with BiPAP treatment. Will add Acetazolaminde. BiPAP has been resumed. Follow serial CXR and ABG. Pulmonary consult. (2) CHF (congestive heart failure): Qualifiers: Heart failure chronicity: unspecified Heart failure type: unspecified Qualified Code(s): I50.9 - Heart failure, unspecified Code(s): I50.9 - Heart failure, unspecified Status: Acute Assessment and Plan: Patient on Bumex and Lasix listed as home meds. BNP 3630. CXR showing diffuse airspace disease and bilateral pleural effusion. She was changed to Lasix IV. Good UOP with the Lasix. She already is feeling better. Will continue with the Lasix for now. Will treat with Acetazolamide. (3) Asthma exacerbation in COPD: Code(s): J44.1 - Chronic obstructive pulmonary disease with (acute) exacerbation; J45.901 - Unspecified asthma with (acute) exacerbation Status: Acute Assessment and Plan: ER note states lungs were clear on admission. Admission note states lungs were diminished. Patient denies having COPD. Patient currently is on Solu-Medrol. Will stop Solu-Medrol and follow clinically. (4) Atrial fibrillation with RVR: Code(s): I48.91 - Unspecified atrial fibrillation Status: Acute Assessment and Plan: HR up to 130's on admission so diltiazem drip started. Currently on Metoprolol as well. Will change to oral diltiazem. (5) DVT (deep venous thrombosis): Qualifiers: Affected thrombotic vein of extremity: unspecified vein of extremity Chronicity: chronic DVT location: lower extremity Laterality: unspecified laterality Qualified Code(s): I82.509 - Chronic embolism and thrombosis of unspecified deep veins of unspecified lower extremity Code(s): I82.409 - Acute embolism and thrombosis of unspecified deep veins of unspecified lower extremity Status: Chronic Assessment and Plan: Brennon (6) Closed T6 spinal fracture: Qualifiers: Encounter type: subsequent encounter Fracture healing: with routine healing Fracture morphology: unspecified fracture morphology Qualified Code(s): S22.059D - Unspecified fracture of T5-T6 vertebra, subsequent encounter for fracture with routine healing Code(s): S22.059A - Unspecified fracture of T5-T6 vertebra, initial encounter for closed fracture Status: Acute Assessment and Plan: This has caused severe spinal cord stenosis but unable to intervene surgically per patient. Resume PT/OT when patient improves. Subjective Date/time seen: 06/11/20 17:33 Interval history: 69yo female with CHF and chronic respiratory failure here for increasing SOB. Patient states she wears her BiPAP every night at the DC. She feels her SOB is better. No CP. No n/v. Eating okay. She went [facility] paralysis from T6 spinal stenosis but she was told that 'it is still too risky' for surgery. She is doing exercises with therpay at the DC but needs to year back brace when up. She is still supposed to wear the left arm sling due to the nonhealing humeral fracture. Exam Narrative: Exam Narrative: AF 96.0 136/73 82 24 90% 3L Gen - NARD and appears comfortable on BiPAP Chest - distatn BS, few basilar rhonchi CV - RRR S1/S2; Tele showing intermittent AFlutter Abd - soft, obese, NT Ext - trace ri
[2020-06-11] MEDS: FUROSEMIDE INJ 40 MG/4 ML VIAL IV PUSH (18:54)
[2020-06-11] MEDS: acetaZOLAMIDE SODIUM FOR INJ 500 MG VIAL 250 MG IV PUSH (19:38)
[2020-06-11] MEDS: dilTIAZem HCL 30 MG TABLET PO ×2 (19:38→23:46)
[2020-06-11] MEDS: ATORVASTATIN 10 MG TABLET PO (19:38)
[2020-06-11 20:17] LABS: Alveolar/Arterial O2 Gradient 149.3 mmHg; Base Excess ABG 30.4 mEq/l (+/-2.0); Fractional Inspired Oxygen 50 %; HCO3 ABG 63.2 mEq/l (22.0-26.0); Oxygen Content ABG 13.3 %vol (16.0-22.0); PO2 ABG 57.2 mmHg (80.0-100.0); PO2 FiO2 Ratio Arterial Blood 1.14 %; Total Hemoglobin 11.1 g/dL (12.0-18.0); pH ABG 7.294 (7.350-7.450)
[2020-06-11 20:18] LABS: PCO2 ABG 133.3 mmHg (35.0-45.0)
[2020-06-11 20:19] LABS: Device CPAP; Modified Allen's Test Pass; Oxygen Saturation ABG 82.5 % (95.0-100.0); Site Drawn RIGHT RADIAL
[2020-06-11 20:20] LABS: CPAP 20 cmH2O
[2020-06-11 23:30] LABS: Alveolar/Arterial O2 Gradient 126.1 mmHg; Base Excess ABG 29.6 mEq/l (+/-2.0); Fractional Inspired Oxygen 50 %; HCO3 ABG 61.4 mEq/l (22.0-26.0); Oxygen Content ABG 13.8 %vol (16.0-22.0); Oxygen Saturation ABG 95.1 % (95.0-100.0); Oxyhemoglobin 94.5 % THb (90.0-100.0); PCO2 ABG 124.1 mmHg (35.0-45.0); PO2 ABG 90.8 mmHg (80.0-100.0); PO2 FiO2 Ratio Arterial Blood 1.82 %; Total Hemoglobin 10.3 g/dL (12.0-18.0); pH ABG 7.312 (7.350-7.450)
[2020-06-11 23:31] LABS: Device NON-INVASIVE VENT; Modified Allen's Test Pass; Site Drawn RIGHT RADIAL
[2020-06-11 23:32] LABS: Non-Invasive Expiratory Pressure 8 CMH2O; Non-Invasive Inspiratory Pressure 16 CMH2O; Non-Invasive Vent Rate 18 /MIN
[2020-06-12] VITALS (35 sets, daily range): BP systolic 98–134; BP diastolic 52–82; PULSE 50–71; RESP 14–21; TEMP 36.5–36.9; O2SAT 84–100; BMI 48.4
--- NOTE | 2020-06-12 03:06 | PC.NURSE ---
This patient, Trina Larkin, was transferred to ICU-4 on 06/12/20 at 0255. Personal belongings sent with patient. Belongings list checked and signed with receiving. Report given to Geo Sam RN. Appropriate documentation sent with patient.
--- NOTE | 2020-06-12 03:07 | PC.NURSE ---
Updated patient's daughter, Rosa, on transfer to ICU and patient being intubated.
--- NOTE | 2020-06-12 03:49 | P.PNCROSS_ITS ---
Event Note Event Note Event Note: Transfer Note Called to assess this patient by nursing staff as the patient was having increased work of breathing. The patient is currently being treated for an acute CHF exacerbation. She was placed on Bipap and ABG was obtained which demonstrated significant hypercapnia. The patient did not improve on the bipap and became completely obtunded and barely responsive to painful stimuli. The patient is full code and we called her daughter to let her know that the patient would need to be intubated and placed on mechanical ventilation as she was no longer appropriate for Bipap. The pateint's daughter gave verbal consent for intubation. The patient was transferred to the ICU and intubated and placed on mechanical ventilation. I have consulted our Assistant Field Hockey Coach, Dr. Farfan and discussed the case in detail with him.
--- NOTE | 2020-06-12 03:53 | WPDPROCEDUR ---
Procedures Intubation Intubation Date: 06/12/20 Intubation Time: 03:10 A pre-procedural Time-Out was completed immediately before starting the procedure and confirmed: Patient Identification, Site, Procedure, Patient Position and the Availability of Requisite Equipment: Yes Sedative: etomidate Mg given: 5 Paralytic: succinylcholine Mg given: 150 Laryngoscope: Marine ET tube size: 7.5 Tube secured depth (cm): 25 Tube secured location: teeth Tube placement confirmation: visualized tube passing through cords, equal breath sounds bilaterally, no breath sounds over epigastrium and confirmation by capnometry Patient tolerated procedure: well and no complications Intubation complications: none Additional comments: Date of service was 06/12/2020 at 3:10 hrs.
--- NOTE | 2020-06-12 03:55 | WPDPROCEDUR ---
Procedures Central Line Placement Right IJ: Central Line Date: 06/12/20 Central Line Time: 03:40 Performed Emergently - Given emergent patient condition, temporal constraints may have precluded informed consent.: Yes Time Out Performed: Yes Patient Position: supine Patient placed on monitor/pulse ox: Yes Provider Prep: mask, sterile gown, sterile gloves, Max. sterile barrier precautions, cap and hand hygiene Central line prep: Povidone-Iodine 1% Sterile Ultrasound Technique used for placement: Yes Central line lumen inserted: triple [place]: 7 Length (cm): 17 Depth of Insertion (cm): 15 Post procedure: sutured in place, good blood return, all ports aspirated, flushed, capped, tegaderm, hemostatic disc and aseptic technique maintained throughout procedure Post procedure x-ray: tip of catheter in good position and no pneumothorax seen Patient tolerated procedure: well Complications: none Additional comments: Date of service was 06/12/2020 at 03:40
--- NOTE | 2020-06-12 03:56 | PC.NURSE ---
This patient, Trina Larkin, was received from [ [id number]] on 06/12/20 at 0250. Personal belongings list checked and signed. Patient/family oriented to unit policies and routines
--- NOTE | 2020-06-12 04:00 | PC.NURSE ---
Pt received 5mg Etom and 150 Succ @0305 Received Versed 2g @ 0320 and another 2mg @ 0335.
[2020-06-12] MEDS: dilTIAZem HCL 30 MG TABLET PO ×3 (05:19→17:04)
[2020-06-12 05:25] LABS: Alveolar/Arterial O2 Gradient 426.4 mmHg; Base Excess ABG 25.7 mEq/l (+/-2.0); Fractional Inspired Oxygen 80 %; HCO3 ABG 49.3 mEq/l (22.0-26.0); Methemoglobin ABG 0.3 %THb (0-1.5); Oxygen Content ABG 16.5 %vol (16.0-22.0); Oxygen Saturation ABG 98.3 % (95.0-100.0); Oxyhemoglobin 97.7 % THb (90.0-100.0); PCO2 ABG 44.8 mmHg (35.0-45.0); PO2 FiO2 Ratio Arterial Blood 1.21 %; Total Hemoglobin 11.9 g/dL (12.0-18.0)
[2020-06-12 05:28] LABS: Hematocrit 28.5 % (37.0-47.0); Hemoglobin 8.4 g/dL (12.0-15.0); Mean Corpuscular HGB Conc 29.5 g/dl (32-36); Mean Corpuscular Hemoglobin 31.1 pg (26-34); Mean Corpuscular Volume 105.6 fl (80-100); Platelet Count Result 233 k/mm3 (150-375); Red Cell Distribution Width 13.3 % (11.5-14.5); White Blood Count 6.5 K/mm3 (4.5-10.0)
[2020-06-12 05:28] LABS: Arterial Blood Gas PEEP 5 cmH2O; Arterial Blood Gas Tidal Volume 350 ml; Arterial Blood Gas Vent Mode CMV; Arterial Blood Gas Ventilator rate 20 /MIN; Device VENTILATOR; Modified Allen's Test Pass; Site Drawn RIGHT RADIAL; pH ABG 7.659 (7.350-7.450)
[2020-06-12 05:46] LABS: Albumin Level 3.3 g/dL (3.5-5.1); Blood Urea Nitrogen 29 mg/dL (7-17); Calcium 8.8 mg/dL (8.4-10.2); Carbon Dioxide > 40 mmol/L (22-30); Chloride 79 mmol/L (98-107); Estimated CRCL calculation 73 ml/min; Estimated Glomerular Filt Rate > 60; Glucose 169 mg/dL (65-105); Magnesium 1.8 mg/dL (1.6-2.3); Phosphorus 2.9 mg/dL (2.5-4.5); Potassium 2.9 mmol/L (3.4-5.0); Sodium 137 mmol/L (137-145)
[2020-06-12] MEDS: SPIRONOLACTONE 25 MG TABLET PO (09:40)
[2020-06-12] MEDS: CHOLECALCIFEROL 1,000 UNIT TABLET 1000 UNITS PO (09:40)
[2020-06-12] MEDS: polyethylene glycoL 3350 17 GM POWD.PACK PO (09:40)
[2020-06-12] MEDS: ACIDOPHILUS/BULGARICUS CHEWABLE TABLET 1 TABLET PO ×2 (09:40→17:04)
[2020-06-12] MEDS: APIXABAN 5 MG TABLET PO ×2 (09:40→17:04)
[2020-06-12] MEDS: ASCORBIC ACID 500 MG TABLET PO (09:40)
[2020-06-12] MEDS: FERROUS SULFATE 324 MG TABLET PO (09:40)
[2020-06-12] MEDS: FAMOTIDINE 20 MG/2 ML VIAL IV PUSH ×2 (09:40→20:01)
[2020-06-12] MEDS: MULTIVITAMINS THERAPEUTIC TAB (*BKC) 1 TABLET PO (09:41)
[2020-06-12] MEDS: FUROSEMIDE INJ 40 MG/4 ML VIAL IV PUSH ×2 (09:41→17:04)
[2020-06-12] MEDS: BETAMETHASONE/CLOTRIMAZOLE CR 15 GM TUBE 1 APPLIC TOPICAL ×2 (09:41→17:04)
[2020-06-12] MEDS: SALINE 0.65% NAS SOLN 44 ML BTL 1 SPRAY NASAL ×2 (09:41→17:04)
[2020-06-12] MEDS: POTASSIUM CHLORIDE 20 MEQ PACKET (FOR LIQUID) 40 MEQ PO (11:08)
--- NOTE | 2020-06-12 12:25 | WPDCNINT ---
Assessment and Plan Assessment and plan (1) Acute and chronic respiratory failure, unspecified whether with hypoxia or hypercapnia: Qualifiers: Respiratory failure complication: hypoxia and hypercapnia Qualified Code(s): J96.21 - Acute and chronic respiratory failure with hypoxia; J96.22 - Acute and chronic respiratory failure with hypercapnia Code(s): J96.20 - Acute and chronic respiratory failure, unspecified whether with hypoxia or hypercapnia Status: Acute Assessment and Plan: acute on chronic respiratory failure most likely related to COPD exacerbation, CHF exacerbation, obstructive sleep apnea and obesity hypoventilation syndrome. patient was intubated hypercapnic respiratory failure in the early hours of 06/12/2020 - patient started on Solu-Medrol bronchodilators and antibiotics - chest x-ray and ABGs reviewed, patient with severe metabolic alkalosis with will correction of pCO2. Ventilator adjusted for low tidal volumes and respiratory rate decreased. - patient sedated with fentanyl Versed infusion, daily sedation vacation and maintain RASS of 0 to -2 (2) Asthma exacerbation in COPD: Code(s): J44.1 - Chronic obstructive pulmonary disease with (acute) exacerbation; J45.901 - Unspecified asthma with (acute) exacerbation Status: Acute Assessment and Plan: continue steroids, antibiotics, bronchodilators - currently on mechanical ventilation (3) CHF (congestive heart failure): Qualifiers: Heart failure chronicity: unspecified Heart failure type: unspecified Qualified Code(s): I50.9 - Heart failure, unspecified Code(s): I50.9 - Heart failure, unspecified Status: Acute Assessment and Plan: Patient has history of CHF likely due to AFib RVR echocardiogram on 02/29/2020 Summary 1. Left ventricular chamber dimension is mildly enlarged. 2. Left ventricular systolic function is normal, estimated at 60-65%. 3. There is mildly increased left ventricular wall thickness. 4. Right ventricular chamber dimension is mildly enlarged. 5. Left atrial chamber dimension is moderately enlarged. 6. Right atrial chamber dimension is mildly enlarged. 7. No obvious vegetations are seen. However, given the technical limitations of the study, a small vegetation cannot excluded. (4) Atrial fibrillation with RVR: Code(s): I48.91 - Unspecified atrial fibrillation Status: Acute Assessment and Plan: patient presented with AFib RVR, was started on Cardizem infusion the ED but was discontinued before sending the patient from a intermediate unit. - Patient currently in AFib, rate controlled - continue Eliquis (5) CAP (community acquired pneumonia): Qualifiers: Laterality: unspecified laterality Qualified Code(s): J18.9 - Pneumonia, unspecified organism Code(s): J18.9 - Pneumonia, unspecified organism Status: Ruled-out Assessment and Plan: patient with elevated white blood cell count, chest x-ray showed airspace opacities in the perihilar regions on the lung bases with worsening on the left - start patient on ceftriaxone and azithromycin - will obtain sputum culture (6) Suspected COVID-19 virus infection: Code(s): R68.89 - Other general symptoms and signs Status: Ruled-out Assessment and Plan: patient from a long term, given the sudden onset of shortness of breath, bilateral infiltrates on the chest x-ray, will rule her out for COVID-19 SARS-CoV-2 PCR has been obtained and pending continue airborne, droplet, contact isolation/precautions (7) Dietary counseling and surveillance: Code(s): Z71.3 - Dietary counseling and surveillance Status: Acute Assessment and Plan: will start tube feeds (8) Left humeral fracture: Qualifiers: Encounter type: sequela Fracture morphology: unspecified fracture morphology Fracture type: closed Humerus Location: proximal Qu
--- NOTE | 2020-06-12 13:02 | PM.CNPUL ---
History of Present Illness History of Present Illness Consult date: 06/12/20 Requesting physician: Erwin Miner MD Chief complaint: copd, chf Narrative: Thank you for the consult. Please see job # [id number]. A/P acute on chronic resp failure *hypercapneic and hypoxemic COPD CHF morbid obestiy pneumonia PLAN: Rx pneumonia, COPD, evaluate for NPPV after extubation, agree with acetazolamide to decreased HCO3, correct pH discussed with Dr Naheed OLIVARES Past Medical History Medical History (Updated 06/10/20 @ 21:00 by Luz Thomas NP) Atrial fibrillation Congestive heart failure DVT (deep venous thrombosis) on Eliquis Hypertension Left humeral fracture Morbid obesity Sepsis due to methicillin susceptible Staphylococcus aureus (MSSA) with acute hypercapnic respiratory failure Stable burst fracture of t5-T6 vertebra, initial encounter for closed fracture Venous stasis dermatitis Surgical History Surgical History H/O hernia repair Ventral S/P appendectomy Social History Social History (Updated 06/10/20 @ 21:03 by Luz Thomas NP) Social History: The patient is . She has 3 sons and 2 daughters. She lives at [facility]. She was independent prior to this fracture. She used to smoke and quit over 30 years ago. Patient is a full code. 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 No alcohol marijuana or illicit drugs. Smoking status: Former smoker Tobacco type: cigarettes Second hand tobacco smoke exposure: No Alcohol intake: unknown Substance use: never Substance use type: does not use Gender identity (if verbalized by the patient): Female Sexual Orientation (if Verbalized by the Patient): Straight or Heterosexual Spiritual care concerns: No Agree to blood products: Yes Meds Home Medications and Allergies Home Medications Medication Instructions Recorded Confirmed Type Eliquis 5 mg PO BID 02/12/20 06/10/20 History acetaminophen 650 mg PO Q4H PRN 02/12/20 06/10/20 History cholecalciferol (vitamin D3) 25 mcg PO DAILY 02/12/20 06/10/20 History ferrous sulfate 325 mg PO DAILY 02/12/20 06/10/20 History polyethylene glycol 3350 17 g PO DAILY #0 ea 03/11/20 06/10/20 Rx albuterol sulfate [Ventolin HFA] 2 puff INHALATION Q6H PRN 03/28/20 06/10/20 History atorvastatin 10 mg PO QPM 03/28/20 06/10/20 History cyclobenzaprine 5 mg PO PRN PRN 03/28/20 06/10/20 History Lactobacillus acidophilus 200 mg PO BID 06/10/20 06/10/20 History ascorbic acid (vitamin C) 500 mg PO DAILY 06/10/20 06/10/20 History bumetanide 2 mg PO DAILY 06/10/20 06/10/20 History clotrimazole-betamethasone 1 applic TOPICAL BID 06/10/20 06/10/20 History gabapentin 300 mg PO HS 06/10/20 06/10/20 History hydrocodone-acetaminophen 1 tablet PO Q4H PRN 06/10/20 06/10/20 History metoprolol tartrate 12.5 mg PO BID 06/10/20 06/10/20 History multivitamin 1 tablet PO DAILY 06/10/20 06/10/20 History simvastatin 20 mg PO HS 06/10/20 06/10/20 History sodium chloride [[place] Nasal] 1 spray INTRANASAL BID 06/10/20 06/10/20 History spironolactone 25 mg PO DAILY 06/10/20 06/10/20 History Allergies Allergy/AdvReac Type Severity Reaction Status Date / Time levofloxacin [From Levaquin] Allergy Mild Rash Verified 06/10/20 18:46 adhesive tape AdvReac Mild Itching Verified 06/10/20 18:46 TaperDex Allergy Unknown Uncoded 06/10/20 18:46 Vital Signs Vital Signs - 24 hr 06/11/20 13:04 06/11/20 14:00 06/11/20 16:00 Temperature 35.5 C L Pulse Rate 104 H 97 86 Respiratory Rate 23 H Blood Pressure 136/73 Pulse Oximetry 92 06/11/20 18:00 06/11/20 19:27 06/11/20 20:00 Temperature 36.6 C Pulse Rate 77 74 85 Respiratory Rate 18 Blood Pressure 150/75 H Pulse Oximetry 97 06/11/20 20:42 06/11/20 20:52 06/11/20 22:00 Temperature Pulse Rate 85 80 65 Respiratory Rate 38 H Blood Pressure Pulse Oximetr
[2020-06-12] MEDS: CENTRAL LINE FLUSH 10 ML IV PUSH ×3 (13:59→20:09)
[2020-06-12] MEDS: ATORVASTATIN 10 MG TABLET PO (17:04)
--- NOTE | 2020-06-12 17:58 | CONS_ITS ---
DATE OF CONSULTATION: 06/12/2020 REASON FOR CONSULTATION: Dr. Miner consulted me to see the patient for respiratory failure. HISTORY OF PRESENT ILLNESS: This patient is a 69-year-old female with a history of congestive heart failure, atrial fibrillation, and COPD. She uses oxygen at home. She is on chronic anticoagulation due to prior DVT. Earlier this spring, she had a left humeral fracture. She was admitted through the ER yesterday, June 11, with worsening hypercapnia, shortness of breath, and a chest x-ray with diffuse airspace disease and pleural effusions. She was given diuresis with IV Lasix. Her atrial fibrillation had a rate up to the 130s. She has lower extremity paralysis from a T6 spinal stenosis, but is not a good surgical candidate currently. She wears a back brace when she is upright. She also had a nonhealing left humeral fracture and uses a sling when she is upright. Last night, she deteriorated with increased work of breathing. She was intubated by Dr. Vega as she was no longer an appropriate candidate for BiPAP. She was transferred to the intensive care unit and she is in ICU room 4, where she was intubated. She also had a central line early this morning. Her initial blood gas in the ED showed a pH of 7.39, pCO2 of 98.9, PO2 of 96, HCO3 of 59 on 5 L a minute. Her pCO2 increased to 133. She failed CPAP. After intubation, she had a post hypercapnic respiratory alkalosis, pH 7.65, pCO2 of 44.8, PO2 of 97, so she overcompensated. She received some acetazolamide to decrease her bicarbonate, which on the last gas was 49.3. Chest x-ray shows small bilateral effusions, airspace opacities in the perihilar regions and at the lung bases, left greater than right, and cardiomegaly. ALLERGIES: LEVAQUIN CAUSES RASH, ADHESIVE TAPE CAUSES ITCHING. HOME MEDICATIONS: Albuterol inhaler 2 puffs q.6 hours p.r.n. shortness of breath, vitamin C 500 mg daily, atorvastatin 10 mg daily, bumetanide 2 mg daily, vitamin D3 of 25 mcg daily, topical antifungal b.i.d., cyclobenzaprine 5 mg p.r.n. spasms, Eliquis 5 mg b.i.d., ferrous sulfate 325 mg daily, gabapentin 300 mg at bedtime, hydrocodone/acetaminophen 1 q.4 hours p.r.n. pain, probiotic lactobacillus 200 mg b.i.d., metoprolol tartrate 12.5 mg b.i.d., multivitamin 1 daily, MiraLAX 17 g daily, simvastatin 20 mg a day, nasal spray b.i.d., spironolactone 25 mg a day. PAST MEDICAL HISTORY: 1. Atrial fibrillation with RVR. 2. Congestive heart failure. 3. COPD. 4. Chronic respiratory failure, on oxygen. 5. History of a DVT. 6. Hypertension. 7. Left humeral fracture. 8. Sepsis due to MSSA. 9. Stable burst fracture of T5-T6. 10. Venous stasis dermatitis. 11. Admission to ICU at [facility], February 26 after the MSSA bacteremia and acute hypercapnic respiratory failure. 12. Respiratory failure requiring admission March 28 through the with associated atrial fibrillation with RVR. PAST SURGICAL HISTORY: Ventral hernia repair and appendectomy. SOCIAL HISTORY: , 3 sons, 2 daughters. Lives at [facility]. She was independent prior to her fracture of T5-T6 vertebra. She is retired. No alcohol. Former smoker. FAMILY HISTORY: Not obtainable from the patient due to her extreme illness and intubation. REVIEW OF SYSTEMS: Unobtainable. PHYSICAL EXAMINATION: VITAL SIGNS: Height 1.57 m, weight 120.1 kg, BMI is 48.4, temp is 36.6, pulse 61, atrial fibrillation, respirations 14 with ventilator, not breathing over the vent. Blood pressure 120/67, saturation 100% on FiO2 of 50%. GENERAL: This is a sedated, obese 69-year-old female who does not appear to be in distress. She resists having her eyelids lifted. She is orally intubated. Moist oral membranes. NECK: Stocky without lymphadenopathy.
[2020-06-12] MEDS: ALBUTEROL SULFATE NEB 2.5 MG/0.5 ML INH INHALATION (19:59)
[2020-06-12] MEDS: IPRATROPIUM BR 0.02% INH SOLN 0.5 MG/2.5 ML VIAL INHALATION (19:59)
[2020-06-12] MEDS: METOPROLOL TARTRATE 12.5 MG TABLET PO (20:00)
[2020-06-12] MEDS: GABAPENTIN 300 MG CAPSULE PO (20:01)
--- NOTE | 2020-06-12 20:29 | PM.IMPN ---
Progress Note: A&P Assessment and Plan (1) Acute and chronic respiratory failure, unspecified whether with hypoxia or hypercapnia: Qualifiers: Respiratory failure complication: hypoxia and hypercapnia Qualified Code(s): J96.21 - Acute and chronic respiratory failure with hypoxia; J96.22 - Acute and chronic respiratory failure with hypercapnia Code(s): J96.20 - Acute and chronic respiratory failure, unspecified whether with hypoxia or hypercapnia Status: Acute Assessment and Plan: ABG showing elevated pCO2 prior to intubation. Since intubation, pCO2 normal now with expected pH 7.66 since she has chronically elevated pCO2. COVID testing in progress to try to determine etiology of acute respiratory failure. Suspect at least a componenet of CHF and probably asthma/COPD. Appreciate pulmonary and multi purpose machine operator input. Continue serial CXR and ABG. Wean vent as able. (2) CHF (congestive heart failure): Qualifiers: Heart failure chronicity: unspecified Heart failure type: unspecified Qualified Code(s): I50.9 - Heart failure, unspecified Code(s): I50.9 - Heart failure, unspecified Status: Acute Assessment and Plan: Patient on Bumex and Lasix listed as home meds. BNP 3630. CXR today showing diffuse airspace disease with worsening on the left. She remains on IV Lasix with good UOP. Will continue with the IV Lasix for now. (3) Asthma exacerbation in COPD: Code(s): J44.1 - Chronic obstructive pulmonary disease with (acute) exacerbation; J45.901 - Unspecified asthma with (acute) exacerbation Status: Acute Assessment and Plan: Patient denies having COPD. No wheezing. Continue inhalres. (4) Atrial fibrillation with RVR: Code(s): I48.91 - Unspecified atrial fibrillation Status: Acute Assessment and Plan: HR up to 130's on admission so diltiazem drip started. Currently on Metoprolol and oral diltiazem. HR well controlled. Watch for bradycardia. Parameters in place (5) DVT (deep venous thrombosis): Qualifiers: Affected thrombotic vein of extremity: unspecified vein of extremity Chronicity: chronic DVT location: lower extremity Laterality: unspecified laterality Qualified Code(s): I82.509 - Chronic embolism and thrombosis of unspecified deep veins of unspecified lower extremity Code(s): I82.409 - Acute embolism and thrombosis of unspecified deep veins of unspecified lower extremity Status: Chronic Assessment and Plan: [place] (6) Closed T6 spinal fracture: Qualifiers: Encounter type: subsequent encounter Fracture healing: with routine healing Fracture morphology: unspecified fracture morphology Qualified Code(s): S22.059D - Unspecified fracture of T5-T6 vertebra, subsequent encounter for fracture with routine healing Code(s): S22.059A - Unspecified fracture of T5-T6 vertebra, initial encounter for closed fracture Status: Acute Assessment and Plan: This has caused severe spinal cord stenosis but unable to intervene surgically per patient. Resume PT/OT when patient improves. Subjective Date/time seen: 06/12/20 20:29 Interval history: 69yo female with CHF and chronic respiratory failure here for increasing SOB who developed respiroatry failure. Overnight, her condition worsened. She was unable to be aroused and ABG showing worsening CO2 retention. She was moved to the ICU where she was intubated and sedated. She had OG placed and TF started. She is currently intubated and sedated and unable to provide hx. Exam Narrative: Exam Narrative: AF 104/64 50 14 98% MV Gen - intubated and sedated HEENT - ETT and OG secured Necj - right IJ TLC in place Chest - distant but clear BS CV - RRR S1/S2; Tele showing slow AFib Abd - soft, obese, hypoactive BS Ext - no significnat LE edema Neuro - sedated Skin - mild chronic venous stasis skin changes O
[2020-06-13] VITALS (30 sets, daily range): BP systolic 94–125; BP diastolic 49–80; PULSE 58–99; RESP 13–98; TEMP 36.3–37.2; O2SAT 93–99
[2020-06-13] MEDS: IPRATROPIUM BR 0.02% INH SOLN 0.5 MG/2.5 ML VIAL INHALATION ×4 (02:15→20:03)
[2020-06-13] MEDS: ALBUTEROL SULFATE NEB 2.5 MG/0.5 ML INH INHALATION ×4 (02:15→20:03)
[2020-06-13] MEDS: dilTIAZem HCL 30 MG TABLET PO ×3 (05:41→17:31)
[2020-06-13] MEDS: CENTRAL LINE FLUSH 10 ML IV PUSH ×4 (05:42→17:33)
[2020-06-13 05:44] LABS: Alveolar/Arterial O2 Gradient 76.1 mmHg; Base Excess ABG 20.6 mEq/l (+/-2.0); Carboxyhemoglobin 0.1 % THb (0-2.0); Fractional Inspired Oxygen 30 %; HCO3 ABG 45.6 mEq/l (22.0-26.0); Methemoglobin ABG 0.2 %THb (0-1.5); Modified Allen's Test Pass; Oxygen Content ABG 16.7 %vol (16.0-22.0); Oxygen Saturation ABG 96.6 % (95.0-100.0); PCO2 ABG 51.6 mmHg (35.0-45.0); PO2 ABG 77.2 mmHg (80.0-100.0); PO2 FiO2 Ratio Arterial Blood 2.57 %; Reduced Hemoglobin 4.7 %THb (0-5.0); Site Drawn LEFT RADIAL; Total Hemoglobin 12.5 g/dL (12.0-18.0); pH ABG 7.564 (7.350-7.450)
[2020-06-13 05:45] LABS: Arterial Blood Gas PEEP 8 cmH2O; Arterial Blood Gas Tidal Volume 350 ml; Arterial Blood Gas Vent Mode CMV; Arterial Blood Gas Ventilator rate 14 /MIN; Device VENTILATOR
[2020-06-13 05:52] LABS: SARS-CoV-2 RNA PCR Negative
[2020-06-13 05:54] LABS: Hematocrit 28.3 % (37.0-47.0); Hemoglobin 8.6 g/dL (12.0-15.0); Mean Corpuscular HGB Conc 30.4 g/dl (32-36); Mean Corpuscular Hemoglobin 31.3 pg (26-34); Mean Corpuscular Volume 102.9 fl (80-100); Mean Platelet Volume 9.3 fl (7.4-10.4); Platelet Count Result 243 k/mm3 (150-375); Red Blood Count 2.75 M/mm3 (4.2-5.4); Red Cell Distribution Width 13.3 % (11.5-14.5); White Blood Count 8.5 K/mm3 (4.5-10.0)
[2020-06-13 06:02] LABS: Lactic Acid 1.9 mmol/L (0.7-2.1)
[2020-06-13 06:09] LABS: Blood Urea Nitrogen 34 mg/dL (7-17); Calcium 8.9 mg/dL (8.4-10.2); Carbon Dioxide > 40 mmol/L (22-30); Chloride 85 mmol/L (98-107); Estimated CRCL calculation 65 ml/min; Estimated Glomerular Filt Rate > 60; Glucose 156 mg/dL (65-105); Phosphorus 1.9 mg/dL (2.5-4.5); Potassium 2.8 mmol/L (3.4-5.0); Sodium 137 mmol/L (137-145)
--- NOTE | 2020-06-13 09:07 | P.CDI_ITS ---
CDI Query Clarification Request - CHF, unspecified has been documented - Echo results from 02/29/20 documented in progress note of 06/12 - Pt is on Lasix 40mf IV BID - BNP 3630 Please further specify type and acuity of CHF: * Systolic *Acute * Diastolic * Chronic * Both Systolic and Diastolic *Acute on chronic * Unable to determine * Unable to determine <Debra Blackwell RN - Last Filed: 06/13/20 09:12>
--- NOTE | 2020-06-13 09:07 | WPDCDIQUERY2 ---
CDI Query Clarification Request - CHF, unspecified has been documented - Echo results from 02/29/20 documented in progress note of 06/12 - Pt is on Lasix 40mf IV BID - BNP 3630 Please further specify type and acuity of CHF: Systolic *Acute Diastolic * Chronic Both Systolic and Diastolic *Acute on chronic Unable to determine * Unable to determine <Debra Blackwell RN - Last Filed: 06/13/20 09:12>
[2020-06-13] MEDS: FERROUS SULFATE 324 MG TABLET PO (09:08)
[2020-06-13] MEDS: METOPROLOL TARTRATE 12.5 MG TABLET PO ×2 (09:09→20:31)
[2020-06-13] MEDS: SPIRONOLACTONE 25 MG TABLET PO (09:09)
[2020-06-13] MEDS: MULTIVITAMINS THERAPEUTIC TAB (*BKC) 1 TABLET PO (09:09)
[2020-06-13] MEDS: APIXABAN 5 MG TABLET PO ×2 (09:09→17:31)
[2020-06-13] MEDS: CHOLECALCIFEROL 1,000 UNIT TABLET 1000 UNITS PO (09:09)
[2020-06-13] MEDS: ACIDOPHILUS/BULGARICUS CHEWABLE TABLET 1 TABLET PO ×2 (09:09→17:31)
[2020-06-13] MEDS: ASCORBIC ACID 500 MG TABLET PO (09:09)
[2020-06-13] MEDS: polyethylene glycoL 3350 17 GM POWD.PACK PO (09:10)
[2020-06-13] MEDS: FAMOTIDINE 20 MG/2 ML VIAL IV PUSH ×2 (09:10→20:31)
[2020-06-13] MEDS: SALINE 0.65% NAS SOLN 44 ML BTL 1 SPRAY NASAL ×2 (09:10→17:32)
[2020-06-13] MEDS: POTASSIUM CHLORIDE 20 MEQ PACKET (FOR LIQUID) 40 MEQ PO ×2 (09:10→17:31)
[2020-06-13] MEDS: BETAMETHASONE/CLOTRIMAZOLE CR 15 GM TUBE 1 APPLIC TOPICAL ×2 (09:11→17:32)
[2020-06-13] MEDS: FUROSEMIDE INJ 40 MG/4 ML VIAL IV PUSH ×2 (09:11→17:32)
--- NOTE | 2020-06-13 10:49 | PCFNICU ---
ICU Rounding Note: Pt current nutrition is Vital 1.2 at goal of 45 ml/hr. Nutrition recommendation: Agree with current recommendations. Last recorded weight is 119.2 kg - slightly down from last review due to diuresis (-I/O). Bowel Motility: no bowel movement - MD aware Labs Reviewed:Hgb (8.6) Hct (28.3) K (2.8) BUN (34) Glu (156) Meds Noted: Albuterol, Vitamin C, Pepcid, Fentanyl, Ferrous Sulfate, Miralax, Lasix, Atrovent, Lactinex, Versed, MVI, KCl, Vitamin D Additional Notes: Patient is tolerating tube feeding at goal rate of 45 ml/hr. No significant residuals have been reported. Patient's skin is WNL. No diet related concerns were reported. Following daily in ICU rounds. Assessing/reassessing every Wednesday/Wednesday.
--- NOTE | 2020-06-13 11:07 | PCNSR ---
On 06/13/20, the student, Zachary Yarbrough, provided care and completed [email or web address] documentation on this patient. I have reviewed the student's documentation and agree with the findings.
[2020-06-13] MEDS: POTASSIUM PHOS,M-BASIC-D-BASIC 20 MMOL in SODIUM CHLORIDE 0.9% IV 250 ML 62.5 MMOL IVPB (11:32)
--- NOTE | 2020-06-13 12:36 | PM.PNPUL ---
Progress Note: A&P Assessment and Plan (1) CHF (congestive heart failure): Qualifiers: Heart failure chronicity: acute on chronic Heart failure type: diastolic Qualified Code(s): I50.33 - Acute on chronic diastolic (congestive) heart failure Code(s): I50.9 - Heart failure, unspecified Status: Acute Assessment and Plan: continue diuresis. replace electrolytes (2) Acute and chronic respiratory failure, unspecified whether with hypoxia or hypercapnia: Qualifiers: Respiratory failure complication: hypoxia and hypercapnia Qualified Code(s): J96.21 - Acute and chronic respiratory failure with hypoxia; J96.22 - Acute and chronic respiratory failure with hypercapnia Code(s): J96.20 - Acute and chronic respiratory failure, unspecified whether with hypoxia or hypercapnia Status: Acute Assessment and Plan: No smoking history making COPD very unlikely, Asthma can not be ruled in or out at this time. YESENIA, CHF and morbid obesity are most likely factors contributing. Agree with switching to Trilogy NIV machine from CPAP once stable. Consider extubating to BIPAP 08/09 with backup rate of 16. Time Spent With Patient Time with patient: 15 - 25 minutes Subjective Date/time seen: 06/13/20 12:36 Interval history: 69 morbidly obese female with YESENIA, chronic hypercapnia, CHF admitted for recurrent respiratory failure from correction and intutbated with bilateral pleural effusion, pulmonary edema on CXR and BNP > 3600. She is being diuresed and being treated for possible pneumonia which is hard to rule out or in based on clinical information and CXR. CXR slightly improving. Review of Systems Review of Systems: All systems reviewed & are unremarkable except as noted in HPI and below Exam Narrative: Exam Narrative: intubated and sedated. Const: General: comfortable and no acute distress Neck: Neck: supple Cardio: Rate: regular rate Rhythm: regular rhythm Heart sounds: no murmurs GI: Auscultation: normal bowel sounds Skin: General skin exam: normal color Objective Data Vital Signs Vital Signs: Vital Signs - 24 hr 06/12/20 14:00 06/12/20 14:30 06/12/20 16:00 Temperature 36.9 C Pulse Rate 63 67 62 Respiratory Rate 14 Blood Pressure 104/64 Pulse Oximetry 100 95 06/12/20 17:00 06/12/20 17:25 06/12/20 18:00 Temperature Pulse Rate 60 58 L 60 Respiratory Rate 14 Blood Pressure Pulse Oximetry 100 06/12/20 18:47 06/12/20 19:58 06/12/20 19:59 Temperature Pulse Rate 60 55 L 53 L Respiratory Rate 14 16 14 Blood Pressure Pulse Oximetry 06/12/20 20:00 06/12/20 20:11 06/12/20 20:16 Temperature 36.6 C Pulse Rate 57 L 50 L 50 L Respiratory Rate 16 14 Blood Pressure 100/53 L Pulse Oximetry 97 98 06/12/20 22:00 06/12/20 22:25 06/12/20 22:26 Temperature Pulse Rate 59 L 59 L 59 L Respiratory Rate 14 16 16 Blood Pressure 98/52 L Pulse Oximetry 94 06/12/20 23:20 06/13/20 00:00 06/13/20 02:00 Temperature 36.3 C L Pulse Rate 62 61 58 L Respiratory Rate 16 14 Blood Pressure 106/63 106/49 L Pulse Oximetry 97 93 94 06/13/20 02:12 06/13/20 02:17 06/13/20 02:30 Temperature Pulse Rate 67 66 62 Respiratory Rate 98 H 14 Blood Pressure Pulse Oximetry 94 06/13/20 03:59 06/13/20 04:00 06/13/20 05:01 Temperature 36.5 C Pulse Rate 62 64 65 Respiratory Rate 14 14 Blood Pressure 95/79 L Pulse Oximetry 95 96 06/13/20 05:51 06/13/20 06:00 06/13/20 08:00 Temperature 36.5 C Pulse Rate 75 65 85 Respiratory Rate 15 16 16 Blood Pressure 98/56 L 97/80 L Pulse Oximetry 98 96 06/13/20 08:04 06/13/20 08:14 06/13/20 09:09 Temperature Pulse Rate 64 71 85 Respiratory Rate 14 14 Blood Pressure Pulse Oximetry 99 06/13/20 10:00 06/13/20 11:02 Temperature Pulse Rate 85 87 Respiratory Rate 16 Blood Pressure 120/76 Pulse Oximetry 94 93 Intake/Output Intake/Ou
[2020-06-13 16:04] LABS: Potassium 4.2 mmol/L (3.4-5.0)
[2020-06-13] MEDS: ATORVASTATIN 10 MG TABLET PO (17:31)
--- NOTE | 2020-06-13 18:42 | PM.IMPN ---
Progress Note: A&P Assessment and Plan (1) Acute and chronic respiratory failure, unspecified whether with hypoxia or hypercapnia: Qualifiers: Respiratory failure complication: hypoxia and hypercapnia Qualified Code(s): J96.21 - Acute and chronic respiratory failure with hypoxia; J96.22 - Acute and chronic respiratory failure with hypercapnia Code(s): J96.20 - Acute and chronic respiratory failure, unspecified whether with hypoxia or hypercapnia Status: Acute Assessment and Plan: ABG showing elevated pCO2 prior to intubation. Since intubation, pCO2 improved with expected elevated pH since she has chronically elevated pCO2. COVID testing negative. Currently on Lasix for CHF and Abx for possible CAP. Mostly related to her poorly treated YESENIA with OHS. Etiology of her respiratory failure probably multifactorial. Suspect at least a component of CHF and probably asthma/COPD. Appreciate pulmonary and developer prover upholstering input. Continue serial CXR and ABG. Wean vent as able. (2) CHF (congestive heart failure): Qualifiers: Heart failure chronicity: acute on chronic Heart failure type: diastolic Qualified Code(s): I50.33 - Acute on chronic diastolic (congestive) heart failure Code(s): I50.9 - Heart failure, unspecified Status: Acute Assessment and Plan: Patient on Bumex and Lasix listed as home meds. BNP 3630. CXR showing worsening diffuse airspace disease. She remains on IV Lasix with good UOP. Will continue with the IV Lasix for now. (3) Asthma exacerbation in COPD: Code(s): J44.1 - Chronic obstructive pulmonary disease with (acute) exacerbation; J45.901 - Unspecified asthma with (acute) exacerbation Status: Acute Assessment and Plan: No wheezing. Continue inhalers. (4) Atrial fibrillation with RVR: Code(s): I48.91 - Unspecified atrial fibrillation Status: Acute Assessment and Plan: HR up to 130's on admission so diltiazem drip started. Currently on Metoprolol and oral diltiazem. HR well controlled. Watch for bradycardia. Parameters in place (5) DVT (deep venous thrombosis): Qualifiers: Affected thrombotic vein of extremity: unspecified vein of extremity Chronicity: chronic DVT location: lower extremity Laterality: unspecified laterality Qualified Code(s): I82.509 - Chronic embolism and thrombosis of unspecified deep veins of unspecified lower extremity Code(s): I82.409 - Acute embolism and thrombosis of unspecified deep veins of unspecified lower extremity Status: Chronic Assessment and Plan: Patient with known history of DVT. Remains on Eliquis. (6) Closed T6 spinal fracture: Qualifiers: Encounter type: subsequent encounter Fracture healing: with routine healing Fracture morphology: unspecified fracture morphology Qualified Code(s): S22.059D - Unspecified fracture of T5-T6 vertebra, subsequent encounter for fracture with routine healing Code(s): S22.059A - Unspecified fracture of T5-T6 vertebra, initial encounter for closed fracture Status: Acute Assessment and Plan: Identified at outside hospital in January 2020. This has caused severe spinal cord stenosis but unable to intervene surgically per patient. Resume PT/OT when patient improves. Subjective Date/time seen: 06/13/20 18:42 Interval history: 69yo female with CHF and chronic respiratory failure here for increasing SOB who developed respiroatry failure. No issues overnight. Remains intubated and sedated. Exam Narrative: Exam Narrative: AF 98/53 81 14 96% MV Gen - intubated and sedated HEENT - ETT and OG secured Necj - right IJ TLC in place Chest - clera anteriorly, decreased BS in the flanks CV - RRR S1/S2; Tele showing AFib with controlled rate Abd - soft, obese, hypoactive BS Ext - no pitting LE edema Neuro - sedated Skin - mild chronic venous stasis skin changes bilateral L
[2020-06-13] MEDS: EUCERIN CREAM 120 GM JAR 1 APPLIC TOPICAL (23:57)
[2020-06-14] VITALS (38 sets, daily range): BP systolic 93–111; BP diastolic 53–74; PULSE 57–90; RESP 14–19; TEMP 36.8–37.5; O2SAT 93–99
[2020-06-14] MEDS: ALBUTEROL SULFATE NEB 2.5 MG/0.5 ML INH INHALATION ×4 (02:16→20:01)
[2020-06-14] MEDS: IPRATROPIUM BR 0.02% INH SOLN 0.5 MG/2.5 ML VIAL INHALATION ×4 (02:16→20:01)
[2020-06-14 04:44] LABS: Alveolar/Arterial O2 Gradient 75.5 mmHg; Base Excess ABG 16.8 mEq/l (+/-2.0); Carboxyhemoglobin 0.3 % THb (0-2.0); Fractional Inspired Oxygen 30 %; HCO3 ABG 43.3 mEq/l (22.0-26.0); Methemoglobin ABG 0.2 %THb (0-1.5); Oxygen Content ABG 12.5 %vol (16.0-22.0); Oxygen Saturation ABG 92.2 % (95.0-100.0); Oxyhemoglobin 90.6 % THb (90.0-100.0); PO2 ABG 63.1 mmHg (80.0-100.0); Reduced Hemoglobin 8.9 %THb (0-5.0); Total Hemoglobin 9.8 g/dL (12.0-18.0); pH ABG 7.447 (7.350-7.450)
[2020-06-14 04:47] LABS: PCO2 ABG 64.1 mmHg (35.0-45.0)
[2020-06-14 04:48] LABS: Device VENTILATOR; Modified Allen's Test Unable to perform; Site Drawn LEFT RADIAL
[2020-06-14 04:49] LABS: Arterial Blood Gas PEEP 5 cmH2O; Arterial Blood Gas Tidal Volume 300 ml; Arterial Blood Gas Vent Mode CMV; Arterial Blood Gas Ventilator rate 14 /MIN
[2020-06-14 05:33] LABS: Hematocrit 27.5 % (37.0-47.0); Hemoglobin 8.2 g/dL (12.0-15.0); Mean Corpuscular HGB Conc 29.8 g/dl (32-36); Mean Corpuscular Hemoglobin 31.3 pg (26-34); Mean Platelet Volume 9.1 fl (7.4-10.4); Platelet Count Result 217 k/mm3 (150-375); Red Blood Count 2.62 M/mm3 (4.2-5.4); Red Cell Distribution Width 13.7 % (11.5-14.5)
[2020-06-14 05:48] LABS: Lactic Acid 1.1 mmol/L (0.7-2.1)
[2020-06-14 06:03] LABS: Blood Urea Nitrogen 32 mg/dL (7-17); Calcium 8.7 mg/dL (8.4-10.2); Carbon Dioxide > 40 mmol/L (22-30); Chloride 89 mmol/L (98-107); Estimated CRCL calculation 73 ml/min; Estimated Glomerular Filt Rate > 60; Glucose 138 mg/dL (65-105); Phosphorus 4.8 mg/dL (2.5-4.5); Potassium 4.3 mmol/L (3.4-5.0); Sodium 137 mmol/L (137-145)
[2020-06-14] MEDS: dilTIAZem HCL 30 MG TABLET PO ×3 (06:10→17:57)
[2020-06-14] MEDS: CENTRAL LINE FLUSH 10 ML IV PUSH ×4 (06:10→20:32)
[2020-06-14] MEDS: SPIRONOLACTONE 25 MG TABLET PO (08:34)
[2020-06-14] MEDS: FERROUS SULFATE 324 MG TABLET PO (08:34)
[2020-06-14] MEDS: ASCORBIC ACID 500 MG TABLET PO (08:34)
[2020-06-14] MEDS: APIXABAN 5 MG TABLET PO ×2 (08:34→17:57)
[2020-06-14] MEDS: FUROSEMIDE INJ 40 MG/4 ML VIAL IV PUSH ×2 (08:34→17:57)
[2020-06-14] MEDS: FAMOTIDINE 20 MG/2 ML VIAL IV PUSH ×2 (08:34→20:31)
[2020-06-14] MEDS: polyethylene glycoL 3350 17 GM POWD.PACK PO (08:34)
[2020-06-14] MEDS: CHOLECALCIFEROL 1,000 UNIT TABLET 1000 UNITS PO (08:34)
[2020-06-14] MEDS: MULTIVITAMINS THERAPEUTIC TAB (*BKC) 1 TABLET PO (08:34)
[2020-06-14] MEDS: ACIDOPHILUS/BULGARICUS CHEWABLE TABLET 1 TABLET PO ×2 (08:35→17:57)
[2020-06-14] MEDS: EUCERIN CREAM 120 GM JAR 1 APPLIC TOPICAL (08:36)
[2020-06-14] MEDS: METOPROLOL TARTRATE 12.5 MG TABLET PO ×2 (08:36→20:31)
[2020-06-14] MEDS: BETAMETHASONE/CLOTRIMAZOLE CR 15 GM TUBE 1 APPLIC TOPICAL ×2 (08:37→17:57)
--- NOTE | 2020-06-14 09:19 | WPDINTPN ---
Progress Note: A&P Assessment and Plan (1) Acute and chronic respiratory failure, unspecified whether with hypoxia or hypercapnia: Qualifiers: Respiratory failure complication: hypoxia and hypercapnia Qualified Code(s): J96.21 - Acute and chronic respiratory failure with hypoxia; J96.22 - Acute and chronic respiratory failure with hypercapnia Code(s): J96.20 - Acute and chronic respiratory failure, unspecified whether with hypoxia or hypercapnia Status: Acute Assessment and Plan: acute on chronic respiratory failure most likely related to COPD exacerbation, CHF exacerbation, obstructive sleep apnea and obesity hypoventilation syndrome. patient was intubated hypercapnic respiratory failure in the early hours of 06/12/2020 - patient started on Solu-Medrol bronchodilators and antibiotics - chest x-ray and ABGs reviewed, patient continues to have respiratory alkalosis, will further decrease tidal volume to 300 mL. - continue diuresis - patient sedated with fentanyl Versed infusion, daily sedation vacation and maintain RASS of 0 to -2 - appreciate pulmonology following the patient, patient may be a candidate for NIPPV/Trilogy (2) Asthma exacerbation in COPD: Code(s): J44.1 - Chronic obstructive pulmonary disease with (acute) exacerbation; J45.901 - Unspecified asthma with (acute) exacerbation Status: Acute Assessment and Plan: continue steroids, antibiotics, bronchodilators - currently on mechanical ventilation (3) CHF (congestive heart failure): Qualifiers: Heart failure chronicity: acute on chronic Heart failure type: diastolic Qualified Code(s): I50.33 - Acute on chronic diastolic (congestive) heart failure Code(s): I50.9 - Heart failure, unspecified Status: Acute Assessment and Plan: Patient has history of CHF likely due to AFib RVR, also acute exacerbation of diastoli heart failure Echocardiogram on 02/29/2020 Summary 1. Left ventricular chamber dimension is mildly enlarged. 2. Left ventricular systolic function is normal, estimated at 60-65%. 3. There is mildly increased left ventricular wall thickness. 4. Right ventricular chamber dimension is mildly enlarged. 5. Left atrial chamber dimension is moderately enlarged. 6. Right atrial chamber dimension is mildly enlarged. 7. No obvious vegetations are seen. However, given the technical limitations of the study, a small vegetation cannot excluded. (4) Atrial fibrillation with RVR: Code(s): I48.91 - Unspecified atrial fibrillation Status: Acute Assessment and Plan: patient presented with AFib RVR, was started on Cardizem infusion the ED but was discontinued before sending the patient from a intermediate unit. - Patient currently in AFib, rate controlled - continue Eliquis (5) CAP (community acquired pneumonia): Qualifiers: Laterality: unspecified laterality Qualified Code(s): J18.9 - Pneumonia, unspecified organism Code(s): J18.9 - Pneumonia, unspecified organism Status: Ruled-out Assessment and Plan: patient with elevated white blood cell count, chest x-ray showed airspace opacities in the perihilar regions on the lung bases with worsening on the left - continue ceftriaxone and azithromycin - Sputum cultures have been obtained and pending (6) Suspected COVID-19 virus infection: Code(s): R68.89 - Other general symptoms and signs Status: Ruled-out Assessment and Plan: patient from a skilled nursing, given the sudden onset of shortness of breath, bilateral infiltrates on the chest x-ray, will rule her out for COVID-19 SARS-CoV-2 PCR was negative will discontinue airborne, droplet, contact isolation/precautions (7) Dietary counseling and surveillance: Code(s): Z71.3 - Dietary counseling and surveillance Status: Acute Assessment and Plan: tolerating tube feeds - on MiraLax (8) Left jose
[2020-06-14 11:19] LABS: Alveolar/Arterial O2 Gradient 81.1 mmHg; Carboxyhemoglobin 0.3 % THb (0-2.0); Fractional Inspired Oxygen 30 %; HCO3 ABG 38.7 mEq/l (22.0-26.0); Methemoglobin ABG 0.2 %THb (0-1.5); Oxygen Content ABG 13.3 %vol (16.0-22.0); Oxygen Saturation ABG 95.8 % (95.0-100.0); Oxyhemoglobin 93.9 % THb (90.0-100.0); PCO2 ABG 50.2 mmHg (35.0-45.0); PO2 ABG 73.8 mmHg (80.0-100.0); PO2 FiO2 Ratio Arterial Blood 2.46 %; Reduced Hemoglobin 5.6 %THb (0-5.0); pH ABG 7.505 (7.350-7.450)
[2020-06-14 11:21] LABS: Arterial Blood Gas PEEP 5 cmH2O; Arterial Blood Gas Tidal Volume 300 ml; Arterial Blood Gas Vent Mode CMV; Arterial Blood Gas Ventilator rate 16 /MIN; Device VENTILATOR; Modified Allen's Test Pass; Site Drawn RIGHT RADIAL
--- NOTE | 2020-06-14 11:31 | PCNFU ---
Nutrition Follow-Up Complete: Inadequate oral intake related to oral intubation as evidenced by NPO status. Goal: Patient to meet estimated nutritional needs. Patient is meeting goal at rate of 45 ml/hr Pt current nutrition is Vital AF 1.2 kcal/ml at goal rate of 45 ml/hr. Nutrition recommendation: Agree with current recommendations Last recorded weight is 118.3 kg. Weight has decreased 1 lb. from 119.2 kg. Negative I&O's noted. Bowel Motility: no bowel movement. Patient on miralax. Discussion generated with MD about bowel movements. Labs Reviewed: Hgb (8.2) Hct (27.5) BUN (32) Glu (138) Meds Noted: Albuterol, Vitamin C, Pepcid, Fentanyl, Ferrous Sulfate, Miralax, Lasix, Atrovent, Lactinex, Versed, MVI, KCl, Vitamin D, Precedex Additional Notes: Patient is tolerating tube feeding well. RN reports residual of 190 ml. Skin is WNL. Follow up every Wednesday/. Follow daily in ICU rounds.
--- NOTE | 2020-06-14 12:00 | PCNSR ---
On 06/14/20, the student, Zachary Yarbrough, provided care and completed [facility] documentation on this patient. I have reviewed the student's documentation and agree with the findings.
--- NOTE | 2020-06-14 14:05 | PM.PNPUL ---
Progress Note: A&P Assessment and Plan (1) CHF (congestive heart failure): Qualifiers: Heart failure chronicity: acute on chronic Heart failure type: diastolic Qualified Code(s): I50.33 - Acute on chronic diastolic (congestive) heart failure Code(s): I50.9 - Heart failure, unspecified Status: Acute Assessment and Plan: continue diuresis. replace electrolytes (2) Acute and chronic respiratory failure, unspecified whether with hypoxia or hypercapnia: Qualifiers: Respiratory failure complication: hypoxia and hypercapnia Qualified Code(s): J96.21 - Acute and chronic respiratory failure with hypoxia; J96.22 - Acute and chronic respiratory failure with hypercapnia Code(s): J96.20 - Acute and chronic respiratory failure, unspecified whether with hypoxia or hypercapnia Status: Acute Assessment and Plan: No smoking history making COPD very unlikely, Asthma can not be ruled in or out at this time. YESENIA, CHF and morbid obesity are most likely factors contributing. Agree with switching to Trilogy NIV machine from CPAP once stable. Consider extubating to BIPAP 08/09 with backup rate of 16. Time Spent With Patient Time with patient: 15 - 25 minutes Subjective Date/time seen: 06/14/20 14:05 Interval history: Stable, still intubated and sedation on IV infusion sedatives. Rythm appears to show Atrial Flutter with varialble AV block Review of Systems Review of Systems: All systems reviewed & are unremarkable except as noted in HPI and below Exam Narrative: Exam Narrative: intubated and sedated. Const: General: comfortable and no acute distress Neck: Neck: supple Cardio: Rate: regular rate Rhythm: regular rhythm Heart sounds: no murmurs GI: Auscultation: normal bowel sounds Skin: General skin exam: normal color Objective Data Vital Signs Vital Signs: Vital Signs - 24 hr 06/13/20 15:02 06/13/20 15:58 06/13/20 16:00 Temperature 36.6 C Pulse Rate 95 99 82 Respiratory Rate 14 16 14 Blood Pressure 102/72 Pulse Oximetry 95 96 06/13/20 17:11 06/13/20 18:00 06/13/20 18:06 Temperature Pulse Rate 80 85 84 Respiratory Rate 14 14 Blood Pressure 100/55 L Pulse Oximetry 98 96 06/13/20 20:00 06/13/20 20:03 06/13/20 20:13 Temperature 37.2 C Pulse Rate 71 79 76 Respiratory Rate 14 14 14 Blood Pressure 98/53 L Pulse Oximetry 96 96 06/13/20 20:31 06/13/20 22:00 06/13/20 23:10 Temperature Pulse Rate 81 67 68 Respiratory Rate 14 Blood Pressure 94/62 L Pulse Oximetry 99 98 06/14/20 00:00 06/14/20 02:00 06/14/20 02:16 Temperature 37.0 C Pulse Rate 69 79 70 Respiratory Rate 14 14 14 Blood Pressure 93/59 L 95/64 L Pulse Oximetry 99 98 98 06/14/20 02:24 06/14/20 04:00 06/14/20 04:01 Temperature 36.9 C Pulse Rate 77 80 78 Respiratory Rate 14 14 14 Blood Pressure 96/70 L Pulse Oximetry 99 06/14/20 04:55 06/14/20 06:00 06/14/20 06:08 Temperature Pulse Rate 69 83 82 Respiratory Rate 16 14 Blood Pressure Pulse Oximetry 98 06/14/20 06:09 06/14/20 07:30 06/14/20 07:41 Temperature Pulse Rate 83 78 75 Respiratory Rate 14 16 16 Blood Pressure 107/67 Pulse Oximetry 99 98 06/14/20 08:00 06/14/20 08:36 06/14/20 10:00 Temperature 37.2 C Pulse Rate 73 83 83 Respiratory Rate 16 16 Blood Pressure 103/67 103/60 Pulse Oximetry 98 97 06/14/20 10:40 06/14/20 11:46 06/14/20 12:00 Temperature 37.2 C Pulse Rate 76 79 75 Respiratory Rate 18 16 Blood Pressure 108/74 Pulse Oximetry 99 99 Intake/Output Intake/Output: Intake & Output 06/11/20 06/12/20 06/13/20 06/14/20 23:59 23:59 23:59 23:59 Intake Total 761 1109 1921 877 Output Total 1150 2250 1500 1250 Cpjvyig -184 -1054 491 -202 Meds/Results Medications: Active Medications Generic Name Dose Route Start Last Admin Trade Name Freq PRN Reason Stop Dose Admin Acetaminophen 650 mg 06/10/20 23:31
--- NOTE | 2020-06-14 15:17 | PM.IMPN ---
Progress Note: A&P Assessment and Plan (1) Acute and chronic respiratory failure, unspecified whether with hypoxia or hypercapnia: Qualifiers: Respiratory failure complication: hypoxia and hypercapnia Qualified Code(s): J96.21 - Acute and chronic respiratory failure with hypoxia; J96.22 - Acute and chronic respiratory failure with hypercapnia Code(s): J96.20 - Acute and chronic respiratory failure, unspecified whether with hypoxia or hypercapnia Status: Acute Assessment and Plan: ABG showing elevated pCO2 prior to intubation. Since intubation, pCO2 improved with expected elevated pH since she has chronically elevated pCO2. COVID testing negative. Etiology of her respiratory failure probably multifactorial. Currently on Lasix for CHF and Abx for possible CAP. Mostly related to her poorly treated YESENIA with OHS. Suspect at least a component of CHF and probably asthma/COPD. Appreciate pulmonary and production associate input. Continue serial CXR and ABG. Wean vent as able. (2) CHF (congestive heart failure): Qualifiers: Heart failure chronicity: acute on chronic Heart failure type: diastolic Qualified Code(s): I50.33 - Acute on chronic diastolic (congestive) heart failure Code(s): I50.9 - Heart failure, unspecified Status: Acute Assessment and Plan: Patient on both Bumex and Lasix listed as home meds. Echo in February showing EF 60-65% with all chambers mild-mod enlargement. BNP 3630. CXR showing worsening diffuse airspace disease. COVID negative. She remains on IV Lasix with good UOP. Will continue with the IV Lasix for now. (3) Asthma exacerbation in COPD: Code(s): J44.1 - Chronic obstructive pulmonary disease with (acute) exacerbation; J45.901 - Unspecified asthma with (acute) exacerbation Status: Acute Assessment and Plan: No wheezing. Continue nebulizer treatments. (4) Atrial fibrillation with RVR: Code(s): I48.91 - Unspecified atrial fibrillation Status: Acute Assessment and Plan: HR up to 130's on admission so diltiazem drip started. Currently on Metoprolol and oral diltiazem. HR remains well controlled. Watch for bradycardia. Parameters in place (5) DVT (deep venous thrombosis): Qualifiers: Affected thrombotic vein of extremity: unspecified vein of extremity Chronicity: chronic DVT location: lower extremity Laterality: unspecified laterality Qualified Code(s): I82.509 - Chronic embolism and thrombosis of unspecified deep veins of unspecified lower extremity Code(s): I82.409 - Acute embolism and thrombosis of unspecified deep veins of unspecified lower extremity Status: Chronic Assessment and Plan: Patient with known history of DVT. Remains on Eliquis. (6) Closed T6 spinal fracture: Qualifiers: Encounter type: subsequent encounter Fracture healing: with routine healing Fracture morphology: unspecified fracture morphology Qualified Code(s): S22.059D - Unspecified fracture of T5-T6 vertebra, subsequent encounter for fracture with routine healing Code(s): S22.059A - Unspecified fracture of T5-T6 vertebra, initial encounter for closed fracture Status: Acute Assessment and Plan: Identified at outside hospital in January 2020. This has caused severe spinal cord stenosis but unable to intervene surgically per patient. Resume PT/OT when patient improves. Subjective Date/time seen: 06/14/20 15:17 Interval history: 69yo female with CHF and chronic respiratory failure here for increasing SOB who developed respiratory failure. Patient changed to Precedex now. No issues overnight. Tolerating TF. Adjusting her vent settings for possible CPAP trial in the morning. Exam Narrative: Exam Narrative: AF 105/53 71 Gen - intubated and mildly sedated HEENT - ETT and OG secured Necj - right IJ TLC in place Chest - lungs clear anteriroly CV - RRR S1
[2020-06-14] MEDS: ATORVASTATIN 10 MG TABLET PO (17:58)
[2020-06-14] MEDS: GABAPENTIN 300 MG CAPSULE PO (20:31)
[2020-06-15] VITALS (40 sets, daily range): BP systolic 98–137; BP diastolic 59–88; PULSE 22–115; RESP 14–24; TEMP 36.8–37.6; O2SAT 96–100
[2020-06-15] MEDS: ALBUTEROL SULFATE NEB 2.5 MG/0.5 ML INH INHALATION ×4 (01:30→19:59)
[2020-06-15] MEDS: IPRATROPIUM BR 0.02% INH SOLN 0.5 MG/2.5 ML VIAL INHALATION ×4 (01:30→19:59)
[2020-06-15 05:31] LABS: Alveolar/Arterial O2 Gradient 68.7 mmHg; Base Excess ABG 13.5 mEq/l (+/-2.0); Carboxyhemoglobin 0.3 % THb (0-2.0); Fractional Inspired Oxygen 30 %; HCO3 ABG 39.3 mEq/l (22.0-26.0); Methemoglobin ABG 0.2 %THb (0-1.5); Oxygen Content ABG 12.9 %vol (16.0-22.0); Oxygen Saturation ABG 95.6 % (95.0-100.0); Oxyhemoglobin 93.8 % THb (90.0-100.0); PO2 ABG 77.1 mmHg (80.0-100.0); PO2 FiO2 Ratio Arterial Blood 2.57 %; Reduced Hemoglobin 5.7 %THb (0-5.0); Total Hemoglobin 9.7 g/dL (12.0-18.0); pH ABG 7.449 (7.350-7.450)
[2020-06-15 05:32] LABS: Device VENTILATOR; Modified Allen's Test Pass; Site Drawn LEFT RADIAL
[2020-06-15 05:33] LABS: Arterial Blood Gas PEEP 5 cmH2O; Arterial Blood Gas Tidal Volume 300 ml; Arterial Blood Gas Vent Mode CMV; Arterial Blood Gas Ventilator rate 14 /MIN
[2020-06-15] MEDS: CENTRAL LINE FLUSH 10 ML IV PUSH ×4 (05:36→20:41)
[2020-06-15 05:42] LABS: Hematocrit 28.6 % (37.0-47.0); Hemoglobin 8.5 g/dL (12.0-15.0); Mean Corpuscular HGB Conc 29.7 g/dl (32-36); Mean Corpuscular Hemoglobin 31.1 pg (26-34); Mean Corpuscular Volume 104.8 fl (80-100); Mean Platelet Volume 9.7 fl (7.4-10.4); Platelet Count Result 204 k/mm3 (150-375); Red Blood Count 2.73 M/mm3 (4.2-5.4); Red Cell Distribution Width 13.6 % (11.5-14.5); White Blood Count 10.2 K/mm3 (4.5-10.0)
[2020-06-15 06:50] LABS: Blood Urea Nitrogen 28 mg/dL (7-17); Calcium 8.7 mg/dL (8.4-10.2); Carbon Dioxide > 40 mmol/L (22-30); Chloride 89 mmol/L (98-107); Estimated CRCL calculation 82 ml/min; Estimated Glomerular Filt Rate > 60; Glucose 167 mg/dL (65-105); Potassium 4.1 mmol/L (3.4-5.0); Sodium 136 mmol/L (137-145)
--- NOTE | 2020-06-15 07:54 | PM.PNPUL ---
Progress Note: A&P Assessment and Plan (1) CHF (congestive heart failure): Qualifiers: Heart failure chronicity: acute on chronic Heart failure type: diastolic Qualified Code(s): I50.33 - Acute on chronic diastolic (congestive) heart failure Code(s): I50.9 - Heart failure, unspecified Status: Acute Assessment and Plan: continue diuresis. replace electrolytes (2) Acute and chronic respiratory failure, unspecified whether with hypoxia or hypercapnia: Qualifiers: Respiratory failure complication: hypoxia and hypercapnia Qualified Code(s): J96.21 - Acute and chronic respiratory failure with hypoxia; J96.22 - Acute and chronic respiratory failure with hypercapnia Code(s): J96.20 - Acute and chronic respiratory failure, unspecified whether with hypoxia or hypercapnia Status: Acute Assessment and Plan: Doing well, consider holding sedation and CPAP trial for extubation Once Extubated would start BIPAP 18/8 with backup rate of 14, titrate FiO2 for sats of 92-96%. No smoking history making COPD very unlikely, Asthma can not be ruled in or out at this time. YESENIA, CHF and morbid obesity are most likely factors contributing. Agree with switching to Trilogy NIV machine from CPAP once stable. Consider extubating to BIPAP 18/10 with backup rate of 16. Time Spent With Patient Time with patient: 15 - 25 minutes Subjective Date/time seen: 06/15/20 07:54 Interval history: Stable, sedated with versed and fentanyl drip. On CMV with 30% FiO2. CXR showing bibasilar atelectesis with small pleural effusions Review of Systems Review of Systems: All systems reviewed & are unremarkable except as noted in HPI and below Exam Narrative: Exam Narrative: intubated and sedated. Const: General: comfortable and no acute distress Neck: Neck: supple Cardio: Rate: regular rate Rhythm: regular rhythm Heart sounds: no murmurs GI: Auscultation: normal bowel sounds Skin: General skin exam: normal color Objective Data Vital Signs Vital Signs: Vital Signs - 24 hr 06/14/20 08:00 06/14/20 08:36 06/14/20 10:00 Temperature 37.2 C Pulse Rate 73 83 83 Respiratory Rate 16 16 Blood Pressure 103/67 103/60 Pulse Oximetry 98 97 06/14/20 10:40 06/14/20 11:46 06/14/20 12:00 Temperature 37.2 C Pulse Rate 76 79 75 Respiratory Rate 18 16 Blood Pressure 108/74 Pulse Oximetry 99 99 06/14/20 14:00 06/14/20 14:58 06/14/20 15:16 Temperature Pulse Rate 77 71 74 Respiratory Rate 14 16 16 Blood Pressure 111/60 Pulse Oximetry 98 95 06/14/20 16:00 06/14/20 17:20 06/14/20 17:36 Temperature 36.8 C Pulse Rate 67 72 70 Respiratory Rate 16 16 Blood Pressure 105/53 L Pulse Oximetry 94 96 06/14/20 18:00 06/14/20 18:08 06/14/20 20:00 Temperature Pulse Rate 70 70 67 Respiratory Rate 14 16 Blood Pressure 102/58 L Pulse Oximetry 94 06/14/20 20:01 06/14/20 20:02 06/14/20 20:05 Temperature 37.5 C Pulse Rate 68 70 82 Respiratory Rate 18 14 Blood Pressure 105/64 Pulse Oximetry 95 93 06/14/20 20:11 06/14/20 20:29 06/14/20 20:30 Temperature Pulse Rate 70 80 90 Respiratory Rate 14 19 16 Blood Pressure Pulse Oximetry 06/14/20 20:31 06/14/20 21:59 06/14/20 22:00 Temperature Pulse Rate 86 60 57 L Respiratory Rate 14 14 Blood Pressure Pulse Oximetry 06/14/20 22:01 06/14/20 23:25 06/15/20 00:00 Temperature Pulse Rate 57 L 58 L 56 L Respiratory Rate 14 14 Blood Pressure 102/62 Pulse Oximetry 96 96 06/15/20 00:01 06/15/20 01:30 06/15/20 01:32 Temperature 37.3 C Pulse Rate 55 L 53 L 58 L Respiratory Rate 16 14 Blood Pressure 114/63 Pulse Oximetry 96 96 06/15/20 02:00 06/15/20 02:01 06/15/20 04:00 Temperature Pulse Rate 57 L 59 L 61 Respiratory Rate 14 14 15 Blood Pressure 116/71 Pulse Oximetry 96 06/15/20 04:01 06/15/20 05:24 06/15/20 06:00 Temperature 36.9 C
[2020-06-15] MEDS: polyethylene glycoL 3350 17 GM POWD.PACK PO (09:13)
[2020-06-15] MEDS: EUCERIN CREAM 120 GM JAR 1 APPLIC TOPICAL (09:13)
[2020-06-15] MEDS: FUROSEMIDE INJ 40 MG/4 ML VIAL IV PUSH ×2 (09:14→18:02)
[2020-06-15] MEDS: MULTIVITAMINS THERAPEUTIC TAB (*BKC) 1 TABLET PO (09:14)
[2020-06-15] MEDS: METOPROLOL TARTRATE 12.5 MG TABLET PO ×2 (09:14→20:40)
[2020-06-15] MEDS: CHOLECALCIFEROL 1,000 UNIT TABLET 1000 UNITS PO (09:14)
[2020-06-15] MEDS: FAMOTIDINE 20 MG/2 ML VIAL IV PUSH ×2 (09:14→20:41)
[2020-06-15] MEDS: FERROUS SULFATE 324 MG TABLET PO (09:15)
[2020-06-15] MEDS: SPIRONOLACTONE 25 MG TABLET PO (09:15)
[2020-06-15] MEDS: APIXABAN 5 MG TABLET PO ×2 (09:15→18:02)
[2020-06-15] MEDS: ASCORBIC ACID 500 MG TABLET PO (09:16)
[2020-06-15] MEDS: BETAMETHASONE/CLOTRIMAZOLE CR 15 GM TUBE 1 APPLIC TOPICAL ×2 (09:16→18:02)
[2020-06-15] MEDS: ACIDOPHILUS/BULGARICUS CHEWABLE TABLET 1 TABLET PO ×2 (09:16→18:02)
[2020-06-15] MEDS: SALINE 0.65% NAS SOLN 44 ML BTL 1 SPRAY NASAL ×2 (09:16→18:03)
--- NOTE | 2020-06-15 10:00 | WPDINTPN ---
Progress Note: A&P Assessment and Plan (1) Acute and chronic respiratory failure, unspecified whether with hypoxia or hypercapnia: Qualifiers: Respiratory failure complication: hypoxia and hypercapnia Qualified Code(s): J96.21 - Acute and chronic respiratory failure with hypoxia; J96.22 - Acute and chronic respiratory failure with hypercapnia Code(s): J96.20 - Acute and chronic respiratory failure, unspecified whether with hypoxia or hypercapnia Status: Acute Assessment and Plan: Acute on chronic respiratory failure most likely related to COPD exacerbation, CHF exacerbation, obstructive sleep apnea and obesity hypoventilation syndrome. Patient was intubated hypercapnic respiratory failure in the early hours of 06/12/2020. Continue bronchodilators and empiric Rocephin/azithromycin. Continue diuresis with Lasix. Failed SBT today due to low Vt; daily SBT. Would extubate to BiPAP directly. Per Pulmonology, will switch from CPAP to Trilogy as OP. (2) CHF (congestive heart failure): Qualifiers: Heart failure chronicity: acute on chronic Heart failure type: diastolic Qualified Code(s): I50.33 - Acute on chronic diastolic (congestive) heart failure Code(s): I50.9 - Heart failure, unspecified Status: Acute Assessment and Plan: Patient has history of CHF likely due to AFib RVR, also acute exacerbation of diastolic heart failure. Diuresis as above. (3) Atrial fibrillation with RVR: Code(s): I48.91 - Unspecified atrial fibrillation Status: Acute Assessment and Plan: Rates currently controlled. Continue diltiazem, metoprolol, and Eliquis. (4) CAP (community acquired pneumonia): Qualifiers: Laterality: unspecified laterality Qualified Code(s): J18.9 - Pneumonia, unspecified organism Code(s): J18.9 - Pneumonia, unspecified organism Status: Ruled-out Assessment and Plan: As above. Empiric abx x7 days. Cultures NGTD. (5) DVT (deep venous thrombosis): Qualifiers: Affected thrombotic vein of extremity: unspecified vein of extremity Chronicity: chronic DVT location: lower extremity Laterality: unspecified laterality Qualified Code(s): I82.509 - Chronic embolism and thrombosis of unspecified deep veins of unspecified lower extremity Code(s): I82.409 - Acute embolism and thrombosis of unspecified deep veins of unspecified lower extremity Status: Chronic Assessment and Plan: Patient with history of DVT and AFib, on continue Eliquis. Additional Plan Discussed with patient's daughter and updated her with patient's condition and plan of care. I answered all questions. Code status: Full code Critical care time spent: 35 minutes Due to a high probability of clinically significant, life threatening deterioration, the patient required my highest level of preparedness to intervene emergently and I personally spent this critical care time directly and personally managing the patient. This critical care time included obtaining a history; examining the patient; pulse oximetry; ordering and review of studies; arranging urgent treatment with development of a management plan; evaluation of patient's response to treatment; frequent reassessment; and discussions with other providers. It was exclusive of separately billable procedures and treating other patients and teaching time. Please see Assessment and Plan section and the rest of the note for further information on patient assessment and treatment Subjective Date/time seen: 06/15/20 10:00 Remains on mechanical ventilation with AC 300x14, FiO2 0.3, PEEP 5. She underwent SBT today at 10/ but had Vt in low to mid 200s after 1.5 hours. Review of Systems Review of Systems: ROS unobtainable: Yes unobtainable due to endotracheal tube Exam Const: General: comfortable and no acute distress HENMT: Other: ETT place Eyes: Sclera: sclerae normal Pupils: Equal, round and
[2020-06-15] MEDS: dilTIAZem HCL 30 MG TABLET PO ×2 (11:50→18:03)
[2020-06-15 12:27] LABS: Glucose Point of Care 123 (65-105)
--- NOTE | 2020-06-15 14:29 | PM.IMPN ---
Progress Note: A&P Assessment and Plan (1) Acute and chronic respiratory failure, unspecified whether with hypoxia or hypercapnia: Qualifiers: Respiratory failure complication: hypoxia and hypercapnia Qualified Code(s): J96.21 - Acute and chronic respiratory failure with hypoxia; J96.22 - Acute and chronic respiratory failure with hypercapnia Code(s): J96.20 - Acute and chronic respiratory failure, unspecified whether with hypoxia or hypercapnia Status: Acute Assessment and Plan: ABG showing elevated pCO2 prior to intubation. Since intubation, pCO2 improved with expected elevated pH since she has chronically elevated pCO2. COVID testing negative. Etiology of her respiratory failure probably multifactorial. Currently on Lasix for CHF and Abx for possible CAP. Mostly related to her poorly treated YESENIA with OHS. Suspect at least a component of CHF and probably asthma/COPD. CXR no significant change on review. Appreciate pulmonary and general lot attendant input. Continue serial CXR and ABG. Wean vent as able. Continue nebs. (2) CHF (congestive heart failure): Qualifiers: Heart failure chronicity: acute on chronic Heart failure type: diastolic Qualified Code(s): I50.33 - Acute on chronic diastolic (congestive) heart failure Code(s): I50.9 - Heart failure, unspecified Status: Acute Assessment and Plan: Patient on both Bumex and Lasix listed as home meds. Echo in February showing EF 60-65% with all chambers mild-mod enlargement. BNP 3630. CXR showing worsening diffuse airspace disease. COVID negative. She remains on IV Lasix with good UOP (2900mL yesterday). Will continue with the IV Lasix for now. (3) Asthma exacerbation in COPD: Code(s): J44.1 - Chronic obstructive pulmonary disease with (acute) exacerbation; J45.901 - Unspecified asthma with (acute) exacerbation Status: Acute Assessment and Plan: No wheezing. Continue nebulizer treatments. (4) Atrial fibrillation with RVR: Code(s): I48.91 - Unspecified atrial fibrillation Status: Acute Assessment and Plan: HR up to 130's on admission so diltiazem drip started. Currently on Metoprolol and oral diltiazem. HR remains mostly well controlled. Parameters in place. (5) DVT (deep venous thrombosis): Qualifiers: Affected thrombotic vein of extremity: unspecified vein of extremity Chronicity: chronic DVT location: lower extremity Laterality: unspecified laterality Qualified Code(s): I82.509 - Chronic embolism and thrombosis of unspecified deep veins of unspecified lower extremity Code(s): I82.409 - Acute embolism and thrombosis of unspecified deep veins of unspecified lower extremity Status: Chronic Assessment and Plan: Patient with known history of DVT. Remains on Eliquis. (6) Closed T6 spinal fracture: Qualifiers: Encounter type: subsequent encounter Fracture healing: with routine healing Fracture morphology: unspecified fracture morphology Qualified Code(s): S22.059D - Unspecified fracture of T5-T6 vertebra, subsequent encounter for fracture with routine healing Code(s): S22.059A - Unspecified fracture of T5-T6 vertebra, initial encounter for closed fracture Status: Acute Assessment and Plan: Identified at outside hospital in January 2020. This has caused severe spinal cord stenosis but unable to intervene surgically per patient. Resume PT/OT when patient improves. Subjective Date/time seen: 06/15/20 14:29 Interval history: 69yo female with CHF and chronic respiratory failure here for increasing SOB who developed respiratory failure. Patietn more alert. She denies abd or chest pain. She remains intubated. Exam Narrative: Exam Narrative: AF 106/78 82 Gen - intubated and mildly sedated HEENT - ETT and OG secured Necj - right IJ TLC in place Chest - few rhonchi, good air exchange CV - RRR
[2020-06-15] MEDS: ATORVASTATIN 10 MG TABLET PO (18:03)
[2020-06-15 18:37] LABS: Glucose Point of Care 123 (65-105)
[2020-06-15] MEDS: GABAPENTIN 300 MG CAPSULE PO (20:41)
[2020-06-16] VITALS (50 sets, daily range): BP systolic 95–151; BP diastolic 54–96; PULSE 49–122; RESP 14–30; TEMP 36.8–37.4; O2SAT 94–100
[2020-06-16] MEDS: dilTIAZem HCL 30 MG TABLET PO (00:06)
[2020-06-16] MEDS: IPRATROPIUM BR 0.02% INH SOLN 0.5 MG/2.5 ML VIAL INHALATION ×4 (01:50→20:57)
[2020-06-16] MEDS: ALBUTEROL SULFATE NEB 2.5 MG/0.5 ML INH INHALATION ×4 (01:50→20:57)
[2020-06-16 04:11] LABS: Alveolar/Arterial O2 Gradient 78.9 mmHg; Base Excess ABG 13.5 mEq/l (+/-2.0); Carboxyhemoglobin 0.1 % THb (0-2.0); Fractional Inspired Oxygen 30 %; HCO3 ABG 38.1 mEq/l (22.0-26.0); Methemoglobin ABG 0.3 %THb (0-1.5); Oxygen Content ABG 12.9 %vol (16.0-22.0); Oxygen Saturation ABG 96.2 % (95.0-100.0); Oxyhemoglobin 94.1 % THb (90.0-100.0); PCO2 ABG 49.3 mmHg (35.0-45.0); PO2 ABG 77.1 mmHg (80.0-100.0); PO2 FiO2 Ratio Arterial Blood 2.57 %; Reduced Hemoglobin 5.5 %THb (0-5.0); Total Hemoglobin 9.7 g/dL (12.0-18.0); pH ABG 7.506 (7.350-7.450)
[2020-06-16 04:12] LABS: Arterial Blood Gas Vent Mode CMV; Arterial Blood Gas Ventilator rate 14 /MIN; Device VENTILATOR; Modified Allen's Test Pass; Site Drawn LEFT RADIAL
[2020-06-16 04:13] LABS: Arterial Blood Gas PEEP 5 cmH2O; Arterial Blood Gas Tidal Volume 300 ml
[2020-06-16] MEDS: CENTRAL LINE FLUSH 10 ML IV PUSH ×4 (05:59→21:59)
[2020-06-16 06:48] LABS: Hematocrit 28.6 % (37.0-47.0); Hemoglobin 8.8 g/dL (12.0-15.0); Mean Corpuscular HGB Conc 30.8 g/dl (32-36); Mean Corpuscular Hemoglobin 31.5 pg (26-34); Mean Corpuscular Volume 102.5 fl (80-100); Mean Platelet Volume 9.9 fl (7.4-10.4); Platelet Count Result 268 k/mm3 (150-375); Red Blood Count 2.79 M/mm3 (4.2-5.4); Red Cell Distribution Width 13.4 % (11.5-14.5); White Blood Count 11.6 K/mm3 (4.5-10.0)
[2020-06-16 07:07] LABS: Blood Urea Nitrogen 25 mg/dL (7-17); Calcium 8.9 mg/dL (8.4-10.2); Carbon Dioxide > 40 mmol/L (22-30); Chloride 88 mmol/L (98-107); Estimated CRCL calculation 81 ml/min; Estimated Glomerular Filt Rate > 60; Glucose 162 mg/dL (65-105); Phosphorus 3.9 mg/dL (2.5-4.5); Potassium 4.2 mmol/L (3.4-5.0); Sodium 135 mmol/L (137-145)
--- NOTE | 2020-06-16 07:35 | WPDINTPN ---
Progress Note: A&P Assessment and Plan (1) Acute and chronic respiratory failure, unspecified whether with hypoxia or hypercapnia: Qualifiers: Respiratory failure complication: hypoxia and hypercapnia Qualified Code(s): J96.21 - Acute and chronic respiratory failure with hypoxia; J96.22 - Acute and chronic respiratory failure with hypercapnia Code(s): J96.20 - Acute and chronic respiratory failure, unspecified whether with hypoxia or hypercapnia Status: Acute Assessment and Plan: Acute on chronic respiratory failure most likely related to COPD exacerbation, CHF exacerbation, obstructive sleep apnea and obesity hypoventilation syndrome. Patient was intubated due to hypercapnic respiratory failure in the early hours of 06/12/2020. Passed SBT and will proceed with extubation to BiPAP. Continue bronchodilators and empiric Rocephin/azithromycin. Continue diuresis with Lasix. Per Pulmonology, will switch from CPAP to Trilogy as OP. (2) CHF (congestive heart failure): Qualifiers: Heart failure chronicity: acute on chronic Heart failure type: diastolic Qualified Code(s): I50.33 - Acute on chronic diastolic (congestive) heart failure Code(s): I50.9 - Heart failure, unspecified Status: Acute Assessment and Plan: Patient has history of CHF likely due to AFib RVR, also acute exacerbation of diastolic heart failure. Diuresis as above. (3) Atrial fibrillation with RVR: Code(s): I48.91 - Unspecified atrial fibrillation Status: Acute Assessment and Plan: Rates currently controlled. Continue diltiazem, metoprolol, and Eliquis. (4) CAP (community acquired pneumonia): Qualifiers: Laterality: unspecified laterality Qualified Code(s): J18.9 - Pneumonia, unspecified organism Code(s): J18.9 - Pneumonia, unspecified organism Status: Ruled-out Assessment and Plan: As above. Empiric abx x7 days. Cultures NGTD. (5) DVT (deep venous thrombosis): Qualifiers: DVT location: lower extremity Affected thrombotic vein of extremity: unspecified vein of extremity Chronicity: chronic Laterality: unspecified laterality Qualified Code(s): I82.509 - Chronic embolism and thrombosis of unspecified deep veins of unspecified lower extremity Code(s): I82.409 - Acute embolism and thrombosis of unspecified deep veins of unspecified lower extremity Status: Chronic Assessment and Plan: Patient with history of DVT and AFib, on continue Eliquis. Additional Plan Discussed with patient's daughter and updated her with patient's condition and plan of care. I answered all questions. Code status: Full code Critical care time spent: 33 minutes Due to a high probability of clinically significant, life threatening deterioration, the patient required my highest level of preparedness to intervene emergently and I personally spent this critical care time directly and personally managing the patient. This critical care time included obtaining a history; examining the patient; pulse oximetry; ordering and review of studies; arranging urgent treatment with development of a management plan; evaluation of patient's response to treatment; frequent reassessment; and discussions with other providers. It was exclusive of separately billable procedures and treating other patients and teaching time. Please see Assessment and Plan section and the rest of the note for further information on patient assessment and treatment Subjective Date/time seen: 06/16/20 07:35 Pt passed SBT this AM and will proceed with extubation. No acute events noted overnight. Review of Systems Review of Systems: ROS unobtainable: Yes unobtainable due to endotracheal tube Exam Const: General: comfortable and no acute distress HENMT: Other: ETT in place Eyes: Sclera: sclerae normal Pupils: Equal, round and reactive pupils present Neck: Neck: supple and no JVD Other: shor
[2020-06-16] MEDS: FERROUS SULFATE 324 MG TABLET PO (08:21)
[2020-06-16] MEDS: EUCERIN CREAM 120 GM JAR 1 APPLIC TOPICAL (08:21)
[2020-06-16] MEDS: SPIRONOLACTONE 25 MG TABLET PO (08:21)
[2020-06-16] MEDS: CHOLECALCIFEROL 1,000 UNIT TABLET 1000 UNITS PO (08:22)
[2020-06-16] MEDS: MULTIVITAMINS THERAPEUTIC TAB (*BKC) 1 TABLET PO (08:22)
[2020-06-16] MEDS: ACIDOPHILUS/BULGARICUS CHEWABLE TABLET 1 TABLET PO (08:22)
[2020-06-16] MEDS: SALINE 0.65% NAS SOLN 44 ML BTL 1 SPRAY NASAL ×2 (08:23→17:37)
[2020-06-16] MEDS: BETAMETHASONE/CLOTRIMAZOLE CR 15 GM TUBE 1 APPLIC TOPICAL ×2 (08:24→17:36)
[2020-06-16] MEDS: polyethylene glycoL 3350 17 GM POWD.PACK PO (08:24)
[2020-06-16] MEDS: APIXABAN 5 MG TABLET PO (08:25)
[2020-06-16] MEDS: ASCORBIC ACID 500 MG TABLET PO (08:25)
[2020-06-16] MEDS: FUROSEMIDE INJ 40 MG/4 ML VIAL IV PUSH ×2 (08:26→17:37)
[2020-06-16] MEDS: FAMOTIDINE 20 MG/2 ML VIAL IV PUSH ×2 (08:28→21:59)
[2020-06-16] MEDS: METOPROLOL TARTRATE 12.5 MG TABLET PO (08:29)
[2020-06-16] MEDS: METOPROLOL TARTRATE INJ 5 MG/5 ML VIAL 2.5 MG IV PUSH ×2 (11:56→17:37)
[2020-06-16] MEDS: dilTIAZem HCl INJ 25 MG/5 ML VIAL IV PUSH (13:36)
--- NOTE | 2020-06-16 19:31 | PM.IMPN ---
Progress Note: A&P Assessment and Plan (1) Acute and chronic respiratory failure, unspecified whether with hypoxia or hypercapnia: Qualifiers: Respiratory failure complication: hypoxia and hypercapnia Qualified Code(s): J96.21 - Acute and chronic respiratory failure with hypoxia; J96.22 - Acute and chronic respiratory failure with hypercapnia Code(s): J96.20 - Acute and chronic respiratory failure, unspecified whether with hypoxia or hypercapnia Status: Acute Assessment and Plan: ABG showing elevated pCO2 prior to intubation. Since intubation, pCO2 improved with expected elevated pH since she has chronically elevated pCO2. COVID testing negative. Etiology of her respiratory failure probably multifactorial. Currently on Lasix for CHF and Abx for possible CAP. Mostly related to her poorly treated YESENIA with OHS. Suspect at least a component of CHF and probably asthma/COPD. CXR showing signs of improvement. Appreciate pulmonary and planning rn input. Continue nebs. (2) CHF (congestive heart failure): Qualifiers: Heart failure chronicity: acute on chronic Heart failure type: diastolic Qualified Code(s): I50.33 - Acute on chronic diastolic (congestive) heart failure Code(s): I50.9 - Heart failure, unspecified Status: Acute Assessment and Plan: Patient on both Bumex and Lasix listed as home meds. Echo in February showing EF 60-65% with all chambers mild-mod enlargement. BNP 3630. CXR showing worsening diffuse airspace disease. COVID negative. She remains on IV Lasix with good UOP (3750mL yesterday). Renal function stable. Will continue with the IV Lasix for now. (3) Asthma exacerbation in COPD: Code(s): J44.1 - Chronic obstructive pulmonary disease with (acute) exacerbation; J45.901 - Unspecified asthma with (acute) exacerbation Status: Acute Assessment and Plan: No wheezing. Continue nebulizer treatments. (4) Atrial fibrillation with RVR: Code(s): I48.91 - Unspecified atrial fibrillation Status: Acute Assessment and Plan: HR up to 130's on admission so diltiazem drip started. Transitioned to Metoprolol and oral diltiazem. HR more elevated since off the oral meds so now on IV Diltiazem. (5) DVT (deep venous thrombosis): Qualifiers: DVT location: lower extremity Affected thrombotic vein of extremity: unspecified vein of extremity Chronicity: chronic Laterality: unspecified laterality Qualified Code(s): I82.509 - Chronic embolism and thrombosis of unspecified deep veins of unspecified lower extremity Code(s): I82.409 - Acute embolism and thrombosis of unspecified deep veins of unspecified lower extremity Status: Chronic Assessment and Plan: Patient with known history of DVT. Eliquis on hold. Resume once able to swallow safely (6) Closed T6 spinal fracture: Qualifiers: Encounter type: subsequent encounter Fracture morphology: unspecified fracture morphology Fracture healing: with routine healing Qualified Code(s): S22.059D - Unspecified fracture of T5-T6 vertebra, subsequent encounter for fracture with routine healing Code(s): S22.059A - Unspecified fracture of T5-T6 vertebra, initial encounter for closed fracture Status: Acute Assessment and Plan: Identified at outside hospital in January 2020. This has caused severe spinal cord stenosis and LE paralysis but unable to intervene surgically per patient. Resume PT/OT when patient improves. Subjective Date/time seen: 06/16/20 19:31 Interval history: 69yo female with CHF and chronic respiratory failure here for increasing SOB who developed respiratory failure. Concepcioneitn extubated today to BiPAP. She did develpe RVR requiring Diltiatizem drip. She is NPO with swallow evaluation tomorrow. Still on Precedex 0.5. Exam Narrative: Exam Narrative: AF 126/85 85 27 Gen - NARD and appears co
[2020-06-17] VITALS (37 sets, daily range): BP systolic 95–146; BP diastolic 56–95; PULSE 54–111; RESP 15–23; TEMP 36.3–37.1; O2SAT 95–100
[2020-06-17] MEDS: METOPROLOL TARTRATE INJ 5 MG/5 ML VIAL 2.5 MG IV PUSH ×5 (00:04→23:09)
[2020-06-17] MEDS: ALBUTEROL SULFATE NEB 2.5 MG/0.5 ML INH INHALATION ×4 (02:21→20:15)
[2020-06-17] MEDS: IPRATROPIUM BR 0.02% INH SOLN 0.5 MG/2.5 ML VIAL INHALATION ×4 (02:21→20:15)
[2020-06-17 04:31] LABS: PCO2 ABG 52.1 mmHg (35.0-45.0); PO2 ABG 94.1 mmHg (80.0-100.0); pH ABG 7.457 (7.350-7.450)
[2020-06-17 04:32] LABS: Alveolar/Arterial O2 Gradient 58.6 mmHg; Base Excess ABG 10.6 mEq/l (+/-2.0); Oxygen Saturation ABG 97.4 % (95.0-100.0); Total Hemoglobin 10.7 g/dL (12.0-18.0)
[2020-06-17 04:33] LABS: Oxygen Content ABG 14.6 %vol (16.0-22.0); Oxyhemoglobin 96.2 % THb (90.0-100.0)
[2020-06-17 04:34] LABS: Fractional Inspired Oxygen 30 %; Methemoglobin ABG 0.3 %THb (0-1.5); Modified Allen's Test Pass; PO2 FiO2 Ratio Arterial Blood 3.14 %; Reduced Hemoglobin 3.5 %THb (0-5.0); Site Drawn LEFT RADIAL
[2020-06-17 05:12] LABS: Hematocrit 28.2 % (37.0-47.0); Hemoglobin 8.7 g/dL (12.0-15.0); Mean Corpuscular HGB Conc 30.9 g/dl (32-36); Mean Corpuscular Hemoglobin 31.1 pg (26-34); Mean Corpuscular Volume 100.7 fl (80-100); Mean Platelet Volume 9.6 fl (7.4-10.4); Platelet Count Result 312 k/mm3 (150-375); White Blood Count 11.2 K/mm3 (4.5-10.0)
[2020-06-17 05:39] LABS: Anion Gap 9.99999 mmol/L (7-16); Blood Urea Nitrogen 21 mg/dL (7-17); Calcium 8.9 mg/dL (8.4-10.2); Carbon Dioxide > 40 mmol/L (22-30); Chloride 88 mmol/L (98-107); Estimated CRCL calculation 93 ml/min; Estimated Glomerular Filt Rate > 60; Glucose 119 mg/dL (65-105); Magnesium 1.9 mg/dL (1.6-2.3); Phosphorus 4.7 mg/dL (2.5-4.5); Sodium 134 mmol/L (137-145)
[2020-06-17 06:35] LABS: Folic Acid 12.7 ng/mL (2.76->20)
[2020-06-17] MEDS: CENTRAL LINE FLUSH 10 ML IV PUSH ×3 (06:36→20:30)
[2020-06-17 07:45] LABS: Expiratory Pressure 10 cmH2O
[2020-06-17 07:46] LABS: Inspiratory Pressure 18 cmH2O
[2020-06-17 07:47] LABS: Device NON-INVASIVE VENT
[2020-06-17] MEDS: EUCERIN CREAM 120 GM JAR 1 APPLIC TOPICAL (09:18)
[2020-06-17] MEDS: BETAMETHASONE/CLOTRIMAZOLE CR 15 GM TUBE 1 APPLIC TOPICAL ×2 (09:18→17:42)
[2020-06-17] MEDS: FAMOTIDINE 20 MG/2 ML VIAL IV PUSH ×2 (09:19→20:30)
[2020-06-17] MEDS: FUROSEMIDE INJ 40 MG/4 ML VIAL IV PUSH ×2 (09:19→17:42)
--- NOTE | 2020-06-17 11:16 | PCFNICU ---
ICU Rounding Note: Pt current nutrition is NPO. Nutrition recommendation: Recommend Diabetic and 2 gram Na diet if able to eat orally. Will recommend resuming tube feedings if unable to advance diet. Last recorded weight is 114.5 kg. Bowel Motility: 06/17/20 last reported bowel movement Labs Reviewed: Hgb (8.7) Hct (28.2) Na (134) BUN (21) Cr (0.6) Glu (119) Meds Noted: lopressor, dulcolax, precedex, albuterol, lasix, vitamin C, atrovent, pepcid, multivitamin, Vitamin D, norco, Additional Notes: Patient has been extubated and awaiting modified swallow test. Following daily in ICU rounds. Follow up in 3 days.
--- NOTE | 2020-06-17 11:36 | PCNSR ---
On 06/17/20, the student, Zachary Yarbrough, provided care and completed [facility] documentation on this patient. I have reviewed the student's documentation and agree with the findings.
--- NOTE | 2020-06-17 13:12 | PM.PNPUL ---
Progress Note: A&P Assessment and Plan (1) CHF (congestive heart failure): Qualifiers: Heart failure chronicity: acute on chronic Heart failure type: diastolic Qualified Code(s): I50.33 - Acute on chronic diastolic (congestive) heart failure Code(s): I50.9 - Heart failure, unspecified Status: Acute Assessment and Plan: continue diuresis. replace electrolytes (2) Acute and chronic respiratory failure, unspecified whether with hypoxia or hypercapnia: Qualifiers: Respiratory failure complication: hypoxia and hypercapnia Qualified Code(s): J96.21 - Acute and chronic respiratory failure with hypoxia; J96.22 - Acute and chronic respiratory failure with hypercapnia Code(s): J96.20 - Acute and chronic respiratory failure, unspecified whether with hypoxia or hypercapnia Status: Acute Assessment and Plan: Doing well since extubation, now on NPPV with TV ~ 450 avg, O2 2 L/min No smoking history making COPD very unlikely; Asthma can not be ruled in or out at this time. YESENIA, CHF and morbid obesity are most likely factors contributing. She is able to tolerate minced foods and thin liquids, so her diet will be advanced. Trilogy NPPV would be helpful; she says she was not on CPAP at home. This is new information, as we were thinking that she was on some sort of PAP treatment prior tp admission. She is on increased peak inspiratory pressure with increases in her Tidal Volumes. Subjective Date/time seen: 06/17/20 13:12 This 69 yo female is seen in follow up for acute and chronic respiratory failure, CHF. She had a swallow study today. It was not a great quality study due to her large BMI and the image being limited to the upper esophagus. She is able to tolerate thin liquids with minced food, so will start with this at dinner. Her NPPV settings have been changed to improve ventilation. She is on Max inspiratory pressure of 35 mm. At home, she is on no CPAP or O2. She says that she has not been treated for any sleep or breathing disorder. Review of Systems Review of Systems: All systems reviewed & are unremarkable except as noted in HPI and below Exam Const: General: comfortable and no acute distress Neck: Neck: supple Chest: Chest palpation & inspection: normal inspection of the chest Resp: Auscultation: diminished lung sounds (does not take deep breaths; not able to lean forward in bed) diffuse Cardio: Rate: regular rate Rhythm: regular rhythm Heart sounds: no murmurs GI: Auscultation: normal bowel sounds Skin: General skin exam: normal color Psych: Mental Status: mental status grossly normal Objective Data Vital Signs Vital Signs: Vital Signs - 24 hr 06/16/20 14:00 06/16/20 14:45 06/16/20 14:55 Temperature Pulse Rate 105 H 115 H 113 H Respiratory Rate 25 H 23 H 23 H Blood Pressure 133/95 H Pulse Oximetry 98 97 06/16/20 16:00 06/16/20 16:38 06/16/20 16:43 Temperature 36.8 C Pulse Rate 82 115 H 115 H Respiratory Rate 23 H 16 16 Blood Pressure 95/66 L Pulse Oximetry 97 06/16/20 16:52 06/16/20 17:33 06/16/20 17:37 Temperature Pulse Rate 122 H 122 H 106 H Respiratory Rate Blood Pressure 95/66 L 125/85 Pulse Oximetry 06/16/20 18:00 06/16/20 18:39 06/16/20 18:40 Temperature Pulse Rate 106 H 86 85 Respiratory Rate 30 H 27 H Blood Pressure 117/86 126/85 Pulse Oximetry 94 06/16/20 20:00 06/16/20 20:01 06/16/20 20:57 Temperature 37.4 C Pulse Rate 93 83 96 Respiratory Rate 24 H 22 H 27 H Blood Pressure 112/70 Pulse Oximetry 97 06/16/20 21:00 06/16/20 21:01 06/16/20 21:02 Temperature Pulse Rate 91 93 90 Respiratory Rate 24 H 18 22 H Blood Pressure 127/93 H Pulse Oximetry 100 06/16/20 22:00 06/16/20 22:01 06/16/20 22:56 Temperature Pulse Rat
[2020-06-17] MEDS: ONDANSETRON INJ 4 MG/2 ML VIAL IV PUSH (14:14)
--- NOTE | 2020-06-17 14:44 | WPDINTPN ---
Progress Note: A&P Assessment and Plan (1) Acute and chronic respiratory failure, unspecified whether with hypoxia or hypercapnia: Qualifiers: Respiratory failure complication: hypoxia and hypercapnia Qualified Code(s): J96.21 - Acute and chronic respiratory failure with hypoxia; J96.22 - Acute and chronic respiratory failure with hypercapnia Code(s): J96.20 - Acute and chronic respiratory failure, unspecified whether with hypoxia or hypercapnia Status: Acute Assessment and Plan: Acute on chronic respiratory failure most likely related to COPD exacerbation, CHF exacerbation, obstructive sleep apnea and obesity hypoventilation syndrome. Patient was intubated due to hypercapnic respiratory failure in the early hours of 06/12/2020. - extubated on 06/16/2020. Currently on BiPAP, will alternate between BiPAP and nasal cannula - pulmonology following the patient, recommended trilogy - while in the hospital will place on AVAPS, pulmonology is agreeable (2) CHF (congestive heart failure): Qualifiers: Heart failure chronicity: acute on chronic Heart failure type: diastolic Qualified Code(s): I50.33 - Acute on chronic diastolic (congestive) heart failure Code(s): I50.9 - Heart failure, unspecified Status: Acute Assessment and Plan: Patient has history of CHF likely due to AFib RVR, also acute exacerbation of diastolic heart failure. continue diuresis (3) Atrial fibrillation with RVR: Code(s): I48.91 - Unspecified atrial fibrillation Status: Acute Assessment and Plan: Rates currently controlled. Continue diltiazem, metoprolol, and Eliquis. (4) CAP (community acquired pneumonia): Qualifiers: Laterality: unspecified laterality Qualified Code(s): J18.9 - Pneumonia, unspecified organism Code(s): J18.9 - Pneumonia, unspecified organism Status: Ruled-out Assessment and Plan: As above. Empiric abx x7 days. Cultures NGTD. (5) DVT (deep venous thrombosis): Qualifiers: DVT location: lower extremity Affected thrombotic vein of extremity: unspecified vein of extremity Chronicity: chronic Laterality: unspecified laterality Qualified Code(s): I82.509 - Chronic embolism and thrombosis of unspecified deep veins of unspecified lower extremity Code(s): I82.409 - Acute embolism and thrombosis of unspecified deep veins of unspecified lower extremity Status: Chronic Assessment and Plan: Patient with history of DVT and AFib, on continue Eliquis. Additional Plan Discussed with patient's daughter and updated her with patient's condition and plan of care. I answered all questions. Code status: Full code Critical care time spent: 35 minutes Due to a high probability of clinically significant, life threatening deterioration, the patient required my highest level of preparedness to intervene emergently and I personally spent this critical care time directly and personally managing the patient. This critical care time included obtaining a history; examining the patient; pulse oximetry; ordering and review of studies; arranging urgent treatment with development of a management plan; evaluation of patient's response to treatment; frequent reassessment; and discussions with other providers. It was exclusive of separately billable procedures and treating other patients and teaching time. Please see Assessment and Plan section and the rest of the note for further information on patient assessment and treatment Subjective Date/time seen: 06/17/20 14:44 Interval history: Reason for consult: hypercapnic respiratory failure, congestive heart failure,rule out COVID-19 06/17/2020: Patient remains on BiPAP, awake, alert, answers to questions appropriately. Able to move bilateral upper extremities. Patient is hemodynamically stable, urine output has been adequate in response to diuresis. Patient is afebrile. Patient to have
[2020-06-17] MEDS: SALINE 0.65% NAS SOLN 44 ML BTL 1 SPRAY NASAL (17:41)
[2020-06-17] MEDS: ACIDOPHILUS/BULGARICUS CHEWABLE TABLET 1 TABLET PO (17:41)
[2020-06-17] MEDS: ATORVASTATIN 10 MG TABLET PO (17:42)
[2020-06-17] MEDS: APIXABAN 5 MG TABLET PO (17:42)
[2020-06-17] MEDS: dilTIAZem HCL 30 MG TABLET PO ×2 (17:45→23:10)
--- NOTE | 2020-06-17 19:30 | PC.NURSE ---
This patient, Trina Larkin, was transferred to [facility] on 06/17/20 at 1905. Personal belongings sent with patient. Report given to SHO Faustin. Appropriate documentation sent with patient.
[2020-06-17] MEDS: GABAPENTIN 300 MG CAPSULE PO (20:30)
--- NOTE | 2020-06-17 21:32 | PM.IMPN ---
Progress Note: A&P Assessment and Plan (1) Acute and chronic respiratory failure, unspecified whether with hypoxia or hypercapnia: Qualifiers: Respiratory failure complication: hypoxia and hypercapnia Qualified Code(s): J96.21 - Acute and chronic respiratory failure with hypoxia; J96.22 - Acute and chronic respiratory failure with hypercapnia Code(s): J96.20 - Acute and chronic respiratory failure, unspecified whether with hypoxia or hypercapnia Status: Acute Assessment and Plan: ABG showing elevated pCO2 prior to intubation. Since intubation, pCO2 improved with expected elevated pH since she has chronically elevated pCO2. COVID testing negative. Etiology of her respiratory failure probably multifactorial. Currently on Lasix for CHF and Abx for possible CAP. Mostly related to her poorly treated YESENIA with OHS. Suspect at least a component of CHF and probably asthma/COPD. Appreciate pulmonary and medical assistant float input. Patient able to be successfully intubated to BiPAP. Plan for Trilogy machine at discharge if able to arrrange. (2) CHF (congestive heart failure): Qualifiers: Heart failure chronicity: acute on chronic Heart failure type: diastolic Qualified Code(s): I50.33 - Acute on chronic diastolic (congestive) heart failure Code(s): I50.9 - Heart failure, unspecified Status: Acute Assessment and Plan: Patient on both Bumex and Lasix listed as home meds. Echo in February showing EF 60-65% with all chambers mild-mod enlargement. BNP 3630. CXR overall appears improved. COVID negative. She remains on IV Lasix with good UOP and negative fluid balance. Cr stable and BUN trending down. Will continue with the IV Lasix for now. (3) Asthma exacerbation in COPD: Code(s): J44.1 - Chronic obstructive pulmonary disease with (acute) exacerbation; J45.901 - Unspecified asthma with (acute) exacerbation Status: Acute Assessment and Plan: Stable. Continue nebulizer treatments. (4) Atrial fibrillation with RVR: Code(s): I48.91 - Unspecified atrial fibrillation Status: Acute Assessment and Plan: HR was up to 130's on admission so diltiazem drip started. Currently on Metoprolol IV and able to be transitioned to oral diltiazem. HR remains well controlled. Watch for bradycardia. Parameters in place (5) DVT (deep venous thrombosis): Qualifiers: Affected thrombotic vein of extremity: unspecified vein of extremity Chronicity: chronic DVT location: lower extremity Laterality: unspecified laterality Qualified Code(s): I82.509 - Chronic embolism and thrombosis of unspecified deep veins of unspecified lower extremity Code(s): I82.409 - Acute embolism and thrombosis of unspecified deep veins of unspecified lower extremity Status: Chronic Assessment and Plan: Patient with known history of DVT. Remains on Eliquis. (6) Closed T6 spinal fracture: Qualifiers: Encounter type: subsequent encounter Fracture healing: with routine healing Fracture morphology: unspecified fracture morphology Qualified Code(s): S22.059D - Unspecified fracture of T5-T6 vertebra, subsequent encounter for fracture with routine healing Code(s): S22.059A - Unspecified fracture of T5-T6 vertebra, initial encounter for closed fracture Status: Acute Assessment and Plan: Identified at outside hospital in January 2020. This has caused severe spinal cord stenosis but unable to intervene surgically per patient. Subjective Date/time seen: 06/17/20 21:32 Interval history: 69yo female with CHF and chronic respiratory failure here for increasing SOB who developed respiratory failure. Judi extubated yesterday successfuly. She wore her BiPAP last night. She passed her swallow evaluation today. She had nausea after the study. She feels her SOB is better. No CP. Legs feel edematous. Exam Narrativ
[2020-06-18] VITALS (26 sets, daily range): BP systolic 113–147; BP diastolic 69–97; PULSE 58–115; RESP 14–24; TEMP 36.6–37.1; O2SAT 93–100
[2020-06-18] MEDS: ALBUTEROL SULFATE NEB 2.5 MG/0.5 ML INH INHALATION ×4 (02:05→20:00)
[2020-06-18] MEDS: IPRATROPIUM BR 0.02% INH SOLN 0.5 MG/2.5 ML VIAL INHALATION ×4 (02:06→20:00)
[2020-06-18] MEDS: METOPROLOL TARTRATE INJ 5 MG/5 ML VIAL 2.5 MG IV PUSH ×4 (05:23→23:25)
[2020-06-18] MEDS: CENTRAL LINE FLUSH 10 ML IV PUSH ×3 (05:24→21:43)
[2020-06-18] MEDS: dilTIAZem HCL 30 MG TABLET PO ×2 (05:24→23:25)
[2020-06-18] MEDS: ASCORBIC ACID 500 MG TABLET PO (08:31)
[2020-06-18] MEDS: FAMOTIDINE 20 MG/2 ML VIAL IV PUSH ×2 (08:31→21:44)
[2020-06-18] MEDS: APIXABAN 5 MG TABLET PO (08:31)
[2020-06-18] MEDS: ACIDOPHILUS/BULGARICUS CHEWABLE TABLET 1 TABLET PO (08:31)
[2020-06-18] MEDS: MULTIVITAMINS THERAPEUTIC TAB (*BKC) 1 TABLET PO (08:31)
[2020-06-18] MEDS: FUROSEMIDE INJ 40 MG/4 ML VIAL IV PUSH (08:31)
[2020-06-18] MEDS: CHOLECALCIFEROL 1,000 UNIT TABLET 1000 UNITS PO (08:31)
[2020-06-18] MEDS: SPIRONOLACTONE 25 MG TABLET PO (08:31)
[2020-06-18] MEDS: EUCERIN CREAM 120 GM JAR 1 APPLIC TOPICAL (08:31)
[2020-06-18] MEDS: FERROUS SULFATE 324 MG TABLET PO (08:31)
[2020-06-18] MEDS: BETAMETHASONE/CLOTRIMAZOLE CR 15 GM TUBE 1 APPLIC TOPICAL ×2 (08:32→18:09)
[2020-06-18] MEDS: ONDANSETRON INJ 4 MG/2 ML VIAL IV PUSH ×2 (11:03→23:27)
--- NOTE | 2020-06-18 18:12 | PM.IMPN ---
Progress Note: A&P Assessment and Plan (1) Acute and chronic respiratory failure, unspecified whether with hypoxia or hypercapnia: Qualifiers: Respiratory failure complication: hypoxia and hypercapnia Qualified Code(s): J96.21 - Acute and chronic respiratory failure with hypoxia; J96.22 - Acute and chronic respiratory failure with hypercapnia Code(s): J96.20 - Acute and chronic respiratory failure, unspecified whether with hypoxia or hypercapnia Status: Acute Assessment and Plan: ABG showing elevated pCO2 prior to intubation. Since intubation, pCO2 improved with expected elevated pH since she has chronically elevated pCO2. COVID testing negative. Etiology of her respiratory failure probably multifactorial. Currently on Lasix for CHF and Abx for possible CAP. Mostly related to her poorly treated YESENIA with OHS. Suspect at least a component of CHF and probably asthma/COPD. Appreciate pulmonary and lathe spotter input. Patient able to be successfully intubated to BiPAP. Plan for Trilogy machine at discharge if able to arrrange. (2) CHF (congestive heart failure): Qualifiers: Heart failure chronicity: acute on chronic Heart failure type: diastolic Qualified Code(s): I50.33 - Acute on chronic diastolic (congestive) heart failure Code(s): I50.9 - Heart failure, unspecified Status: Acute Assessment and Plan: Patient on both Bumex and Lasix listed as home meds. Echo in February showing EF 60-65% with all chambers mild-mod enlargement. BNP 3630. CXR overall appears improved. COVID negative. She remains on IV Lasix with good UOP and negative fluid balance. Cr stable and BUN trending down. Will continue with the IV Lasix for now. (3) Asthma exacerbation in COPD: Code(s): J44.1 - Chronic obstructive pulmonary disease with (acute) exacerbation; J45.901 - Unspecified asthma with (acute) exacerbation Status: Acute Assessment and Plan: Stable. Continue nebulizer treatments. (4) Atrial fibrillation with RVR: Code(s): I48.91 - Unspecified atrial fibrillation Status: Acute Assessment and Plan: HR was up to 130's on admission so diltiazem drip started. Currently on Metoprolol IV and able to be transitioned to oral diltiazem. HR remains well controlled. Watch for bradycardia. Parameters in place (5) DVT (deep venous thrombosis): Qualifiers: DVT location: lower extremity Affected thrombotic vein of extremity: unspecified vein of extremity Chronicity: chronic Laterality: unspecified laterality Qualified Code(s): I82.509 - Chronic embolism and thrombosis of unspecified deep veins of unspecified lower extremity Code(s): I82.409 - Acute embolism and thrombosis of unspecified deep veins of unspecified lower extremity Status: Chronic Assessment and Plan: Patient with known history of DVT. Remains on Eliquis. (6) Closed T6 spinal fracture: Qualifiers: Encounter type: subsequent encounter Fracture morphology: unspecified fracture morphology Fracture healing: with routine healing Qualified Code(s): S22.059D - Unspecified fracture of T5-T6 vertebra, subsequent encounter for fracture with routine healing Code(s): S22.059A - Unspecified fracture of T5-T6 vertebra, initial encounter for closed fracture Status: Acute Assessment and Plan: Identified at outside hospital in January 2020. This has caused severe spinal cord stenosis but unable to intervene surgically per patient. Subjective Date/time seen: 06/18/20 18:12 Interval history: date of visit 06/18. 69yo female with CHF and chronic respiratory failure here for increasing SOB who developed respiratory failure. Pateint extubated 06/16 successfuly. She wore her BiPAP last night. She passed her swallow evaluation 06/17. She had nausea after the study. She feels her SOB is better. No CP. Legs feel edematous. nausea
[2020-06-18] MEDS: GABAPENTIN 300 MG CAPSULE PO (21:43)
[2020-06-19] VITALS (23 sets, daily range): BP systolic 127–165; BP diastolic 82–96; PULSE 70–109; RESP 20–24; TEMP 36.3–36.7; O2SAT 90–100
[2020-06-19] MEDS: ALBUTEROL SULFATE NEB 2.5 MG/0.5 ML INH INHALATION ×4 (02:35→19:32)
[2020-06-19] MEDS: IPRATROPIUM BR 0.02% INH SOLN 0.5 MG/2.5 ML VIAL INHALATION ×4 (02:35→19:32)
[2020-06-19] MEDS: METOPROLOL TARTRATE INJ 5 MG/5 ML VIAL 2.5 MG IV PUSH (05:29)
[2020-06-19] MEDS: dilTIAZem HCL 30 MG TABLET PO (05:29)
[2020-06-19] MEDS: CENTRAL LINE FLUSH 10 ML IV PUSH ×3 (05:29→21:10)
[2020-06-19 05:46] LABS: Blood Urea Nitrogen 19 mg/dL (7-17); Calcium 9.2 mg/dL (8.4-10.2); Carbon Dioxide > 40 mmol/L (22-30); Chloride 86 mmol/L (98-107); Estimated CRCL calculation 79 ml/min; Estimated Glomerular Filt Rate > 60; Glucose 135 mg/dL (65-105); Potassium 3.7 mmol/L (3.4-5.0); Sodium 135 mmol/L (137-145)
[2020-06-19] MEDS: APIXABAN 5 MG TABLET PO ×2 (08:32→17:46)
[2020-06-19] MEDS: ACIDOPHILUS/BULGARICUS CHEWABLE TABLET 1 TABLET PO ×2 (08:32→17:44)
[2020-06-19] MEDS: FAMOTIDINE 20 MG/2 ML VIAL IV PUSH ×2 (08:33→21:10)
[2020-06-19] MEDS: FERROUS SULFATE 324 MG TABLET PO (08:34)
[2020-06-19] MEDS: CHOLECALCIFEROL 1,000 UNIT TABLET 1000 UNITS PO (08:34)
[2020-06-19] MEDS: SPIRONOLACTONE 25 MG TABLET PO (08:35)
[2020-06-19] MEDS: MULTIVITAMINS THERAPEUTIC TAB (*BKC) 1 TABLET PO (08:35)
[2020-06-19] MEDS: ASCORBIC ACID 500 MG TABLET PO (08:35)
[2020-06-19] MEDS: BETAMETHASONE/CLOTRIMAZOLE CR 15 GM TUBE 1 APPLIC TOPICAL ×2 (08:36→17:45)
[2020-06-19] MEDS: SALINE 0.65% NAS SOLN 44 ML BTL 1 SPRAY NASAL ×2 (08:36→17:45)
[2020-06-19] MEDS: EUCERIN CREAM 120 GM JAR 1 APPLIC TOPICAL (08:36)
[2020-06-19] MEDS: polyethylene glycoL 3350 17 GM POWD.PACK PO (08:37)
[2020-06-19] MEDS: METOPROLOL TARTRATE 12.5 MG TABLET PO ×2 (12:25→21:10)
[2020-06-19] MEDS: FUROSEMIDE INJ 40 MG/4 ML VIAL IV PUSH ×2 (12:28→17:45)
[2020-06-19] MEDS: ONDANSETRON INJ 4 MG/2 ML VIAL IV PUSH (12:30)
[2020-06-19 14:40] LABS: SARS-CoV-2 RNA PCR Negative
[2020-06-19 16:35] LABS: Glucose Point of Care 121 (65-105)
--- NOTE | 2020-06-19 16:43 | PM.IMPN ---
Progress Note: A&P Assessment and Plan (1) Acute and chronic respiratory failure, unspecified whether with hypoxia or hypercapnia: Qualifiers: Respiratory failure complication: hypoxia and hypercapnia Qualified Code(s): J96.21 - Acute and chronic respiratory failure with hypoxia; J96.22 - Acute and chronic respiratory failure with hypercapnia Code(s): J96.20 - Acute and chronic respiratory failure, unspecified whether with hypoxia or hypercapnia Status: Acute Assessment and Plan: ABG showing elevated pCO2 prior to intubation. Since intubation, pCO2 improved with expected elevated pH since she has chronically elevated pCO2. COVID testing negative. Etiology of her respiratory failure probably multifactorial. Currently on Lasix for CHF and Abx(D#8) for possible CAP. Mostly related to her poorly treated YESENIA with OHS. Suspect at least a component of CHF and probably asthma/COPD. Appreciate pulmonary and freight traffic consultant input. Patient able to be successfully intubated to BiPAP. Plan for Trilogy machine at discharge if able to arrrange. (2) CHF (congestive heart failure): Qualifiers: Heart failure chronicity: acute on chronic Heart failure type: diastolic Qualified Code(s): I50.33 - Acute on chronic diastolic (congestive) heart failure Code(s): I50.9 - Heart failure, unspecified Status: Acute Assessment and Plan: Patient on both Bumex and Lasix listed as home meds. Echo in February showing EF 60-65% with all chambers mild-mod enlargement. BNP 3630. CXR overall appears improved. COVID negative. She remains on IV Lasix with good UOP and negative fluid balance. Cr stable and BUN trending down(19/.7). Will continue with the IV Lasix for now. (3) Asthma exacerbation in COPD: Code(s): J44.1 - Chronic obstructive pulmonary disease with (acute) exacerbation; J45.901 - Unspecified asthma with (acute) exacerbation Status: Acute Assessment and Plan: Stable. Continue nebulizer treatments. (4) Atrial fibrillation with RVR: Code(s): I48.91 - Unspecified atrial fibrillation Status: Acute Assessment and Plan: HR was up to 130's on admission so diltiazem drip started. Currently on Metoprolol IV and transitioned to metoprolol succinate and cardizem cd today . HR remains well controlled. Watch for bradycardia. Parameters in place (5) DVT (deep venous thrombosis): Qualifiers: DVT location: lower extremity Affected thrombotic vein of extremity: unspecified vein of extremity Chronicity: chronic Laterality: unspecified laterality Qualified Code(s): I82.509 - Chronic embolism and thrombosis of unspecified deep veins of unspecified lower extremity Code(s): I82.409 - Acute embolism and thrombosis of unspecified deep veins of unspecified lower extremity Status: Chronic Assessment and Plan: Patient with known history of DVT. Remains on Eliquis. (6) Closed T6 spinal fracture: Qualifiers: Encounter type: subsequent encounter Fracture morphology: unspecified fracture morphology Fracture healing: with routine healing Qualified Code(s): S22.059D - Unspecified fracture of T5-T6 vertebra, subsequent encounter for fracture with routine healing Code(s): S22.059A - Unspecified fracture of T5-T6 vertebra, initial encounter for closed fracture Status: Acute Assessment and Plan: Identified at outside hospital in January 2020. This has caused severe spinal cord stenosis but unable to intervene surgically per patient. Subjective Date/time seen: 06/19/20 16:43 Interval history: date of visit 06/19. 69yo female with CHF and chronic respiratory failure here for increasing SOB who developed respiratory failure. Pateint extubated 06/16 successfuly. . She passed her swallow evaluation 06/17. She had nausea after the study. She feels her SOB is better. No CP. Legs feel edematous. no na
[2020-06-19] MEDS: ATORVASTATIN 10 MG TABLET PO (17:46)
[2020-06-19] MEDS: GABAPENTIN 300 MG CAPSULE PO (21:10)
--- NOTE | 2020-06-19 21:14 | PM.PNPUL ---
Progress Note: A&P Assessment and Plan (1) CHF (congestive heart failure): Qualifiers: Heart failure chronicity: acute on chronic Heart failure type: diastolic Qualified Code(s): I50.33 - Acute on chronic diastolic (congestive) heart failure Code(s): I50.9 - Heart failure, unspecified Status: Acute Assessment and Plan: continue diuresis. replace electrolytes (2) Acute and chronic respiratory failure, unspecified whether with hypoxia or hypercapnia: Qualifiers: Respiratory failure complication: hypoxia and hypercapnia Qualified Code(s): J96.21 - Acute and chronic respiratory failure with hypoxia; J96.22 - Acute and chronic respiratory failure with hypercapnia Code(s): J96.20 - Acute and chronic respiratory failure, unspecified whether with hypoxia or hypercapnia Status: Acute Assessment and Plan: Doing well since extubation, now on NPPV with TV ~ 450 avg, O2 2 L/min No smoking history making COPD very unlikely; Asthma can not be ruled in or out at this time. YESENIA, CHF and morbid obesity are most likely factors contributing. She is able to tolerate minced foods and thin liquids, so her diet will be advanced. Trilogy NPPV would be helpful; she says she was not on CPAP at home. This is new information, as we were thinking that she was on some sort of PAP treatment prior tp admission. She is on increased peak inspiratory pressure with increases in her Tidal Volumes. Subjective Date/time seen: 06/19/20 21:14 Interval history: Stable, CXR showing bibasilar atelectesis with small pleural effusions Review of Systems Review of Systems: All systems reviewed & are unremarkable except as noted in HPI and below Exam Const: General: comfortable and no acute distress Neck: Neck: supple Chest: Chest palpation & inspection: normal inspection of the chest Resp: Auscultation: diminished lung sounds (does not take deep breaths; not able to lean forward in bed) diffuse Cardio: Rate: regular rate Rhythm: regular rhythm Heart sounds: no murmurs GI: Auscultation: normal bowel sounds Skin: General skin exam: normal color Psych: Mental Status: mental status grossly normal Objective Data Vital Signs Vital Signs: Vital Signs - 24 hr 06/18/20 22:00 06/19/20 00:00 06/19/20 02:00 Temperature 36.5 C Pulse Rate 106 H 88 90 Respiratory Rate 22 H Blood Pressure 127/82 Pulse Oximetry 97 06/19/20 02:37 06/19/20 02:38 06/19/20 02:43 Temperature Pulse Rate 93 93 89 Respiratory Rate 20 20 Blood Pressure Pulse Oximetry 96 06/19/20 04:00 06/19/20 05:58 06/19/20 08:00 Temperature 36.7 C 36.5 C Pulse Rate 98 77 105 H Respiratory Rate 22 H 24 H Blood Pressure 149/96 H 152/93 H Pulse Oximetry 96 98 06/19/20 08:54 06/19/20 08:55 06/19/20 09:05 Temperature Pulse Rate 95 88 Respiratory Rate 22 H 22 H Blood Pressure Pulse Oximetry 90 06/19/20 12:00 06/19/20 12:25 06/19/20 14:15 Temperature 36.7 C Pulse Rate 109 H 100 90 Respiratory Rate 24 H 22 H Blood Pressure 153/93 H Pulse Oximetry 90 06/19/20 14:24 06/19/20 16:00 06/19/20 18:51 Temperature 36.3 C L 36.3 C L Pulse Rate 92 88 70 Respiratory Rate 22 H 22 H 20 Blood Pressure 165/85 H 141/94 H Pulse Oximetry 97 98 06/19/20 19:35 06/19/20 19:41 06/19/20 20:00 Temperature Pulse Rate 78 74 84 Respiratory Rate 20 20 Blood Pressure Pulse Oximetry 98 98 Intake/Output Intake/Output: Intake & Output 06/16/20 06/17/20 06/18/20 06/19/20 23:59 23:59 23:59 23:59 Intake Total 1637 472 229 0004 Output Total 2650 1975 1550 1300 Balance -1013 -1360 -910 170 Meds/Results Medications: Active Medications Generic Name Dose Route Start Last Admin Trade Name Freq PRN Reason Stop Dose Admin Acetaminophen 6
[2020-06-20] VITALS (24 sets, daily range): BP systolic 111–145; BP diastolic 62–82; PULSE 65–97; RESP 13–20; TEMP 36.1–36.6; O2SAT 94–100
[2020-06-20] MEDS: ALBUTEROL SULFATE NEB 2.5 MG/0.5 ML INH INHALATION ×4 (01:31→20:46)
[2020-06-20] MEDS: IPRATROPIUM BR 0.02% INH SOLN 0.5 MG/2.5 ML VIAL INHALATION ×4 (01:31→20:46)
[2020-06-20] MEDS: CENTRAL LINE FLUSH 10 ML IV PUSH ×3 (05:58→22:22)
[2020-06-20] MEDS: CENTRAL LINE FLUSH 20 ML IV PUSH (05:59)
[2020-06-20 06:23] LABS: Blood Urea Nitrogen 16 mg/dL (7-17); Calcium 9.1 mg/dL (8.4-10.2); Carbon Dioxide > 40 mmol/L (22-30); Chloride 84 mmol/L (98-107); Estimated CRCL calculation 79 ml/min; Estimated Glomerular Filt Rate > 60; Glucose 104 mg/dL (65-105); Potassium 3.6 mmol/L (3.4-5.0); Sodium 134 mmol/L (137-145)
[2020-06-20] MEDS: polyethylene glycoL 3350 17 GM POWD.PACK PO (09:07)
[2020-06-20] MEDS: BETAMETHASONE/CLOTRIMAZOLE CR 15 GM TUBE 1 APPLIC TOPICAL ×2 (09:09→17:34)
[2020-06-20] MEDS: METOPROLOL TARTRATE 12.5 MG TABLET PO ×2 (09:09→21:45)
[2020-06-20] MEDS: EUCERIN CREAM 120 GM JAR 1 APPLIC TOPICAL (09:09)
[2020-06-20] MEDS: SPIRONOLACTONE 25 MG TABLET PO (09:09)
[2020-06-20] MEDS: MULTIVITAMINS THERAPEUTIC TAB (*BKC) 1 TABLET PO (09:09)
[2020-06-20] MEDS: SALINE 0.65% NAS SOLN 44 ML BTL 1 SPRAY NASAL ×2 (09:10→17:34)
[2020-06-20] MEDS: APIXABAN 5 MG TABLET PO ×2 (09:10→17:34)
[2020-06-20] MEDS: CHOLECALCIFEROL 1,000 UNIT TABLET 1000 UNITS PO (09:10)
[2020-06-20] MEDS: FAMOTIDINE 20 MG/2 ML VIAL IV PUSH ×2 (09:10→22:16)
[2020-06-20] MEDS: ASCORBIC ACID 500 MG TABLET PO (09:10)
[2020-06-20] MEDS: FERROUS SULFATE 324 MG TABLET PO (09:10)
[2020-06-20] MEDS: ACIDOPHILUS/BULGARICUS CHEWABLE TABLET 1 TABLET PO ×2 (09:11→17:34)
[2020-06-20] MEDS: FUROSEMIDE INJ 40 MG/4 ML VIAL IV PUSH ×2 (09:11→17:35)
--- NOTE | 2020-06-20 13:33 | PCDIET ---
Nutrition Follow-Up Complete: Nutrition Diagnosis: Inadequate oral intake related to oral intubation as evidenced by NPO status. Nutrition Goal: Patient to meet estimated nutritional needs. Goal not met. Patient c/o decreased taste sensation and does not particularly care for minced and moist diet. Agreeable to try Ensure Enlive (350kcal, 20g protein) - states she has taken in the past and does like it. Recommend sending Ensure Enlive twice daily. Last recorded weight is 110.3 kg which is stable. Bowel Motility: Last documented BM on 06/17/20 x 3. Labs Reviewed: Na (134) Meds Noted: Aldactone, Stephens, Zithromax, Pepcid, Albuterol, Vitamin D, Vitamin C, Dulcolax, Ferrous Sulfate, Miralax, Rocephin, Lasix, Atrovent, Lactinex, MVI, Zofran Additional Notes: Patient denies nausea during visit and believes prior nausea was due to taking morning medications without food. Back and buttocks macerated, per nursing documentation. Nutrition Monitoring and Evaluation: Follow up every 5 days.
--- NOTE | 2020-06-20 13:35 | PC.NURSE ---
This patient, Trina Larkin, was received from IMU on 06/20/20 at 1335. Personal belongings list checked and signed. Patient/family oriented to unit policies and routines
--- NOTE | 2020-06-20 16:09 | PC.NURSE ---
This patient, Trina Larkin, was transferred to [[id number] ] on 06/20/20 at 13:28. Personal belongings sent with patient. Belongings list checked and signed with receiving [ ]. Report given to [ ]. Appropriate documentation sent with patient.
[2020-06-20] MEDS: ATORVASTATIN 10 MG TABLET PO (17:34)
--- NOTE | 2020-06-20 18:04 | PM.IMPN ---
Progress Note: A&P Assessment and Plan (1) Acute and chronic respiratory failure, unspecified whether with hypoxia or hypercapnia: Qualifiers: Respiratory failure complication: hypoxia and hypercapnia Qualified Code(s): J96.21 - Acute and chronic respiratory failure with hypoxia; J96.22 - Acute and chronic respiratory failure with hypercapnia Code(s): J96.20 - Acute and chronic respiratory failure, unspecified whether with hypoxia or hypercapnia Status: Acute Assessment and Plan: ABG showing elevated pCO2 prior to intubation. Since intubation, pCO2 improved with expected elevated pH since she has chronically elevated pCO2. COVID testing negative. Etiology of her respiratory failure probably multifactorial. Currently on Lasix for CHF and Abx(D#9) for possible CAP. Mostly related to her poorly treated YESENIA with OHS. Suspect at least a component of CHF and probably asthma/COPD. Patient able to be successfully extubated to BiPAP. Pul and respiratory rx working on pressure device for NH (2) CHF (congestive heart failure): Qualifiers: Heart failure chronicity: acute on chronic Heart failure type: diastolic Qualified Code(s): I50.33 - Acute on chronic diastolic (congestive) heart failure Code(s): I50.9 - Heart failure, unspecified Status: Acute Assessment and Plan: Patient on both Bumex and Lasix listed as home meds. Echo in February showing EF 60-65% with all chambers mild-mod enlargement. BNP 3630. CXR overall appears improved. COVID negative. She remains on IV Lasix with good UOP and negative fluid balance. Cr stable and BUN trending down(16/.7). Will continue with the IV Lasix for now and transition to oral diuretic 06/21. (3) Asthma exacerbation in COPD: Code(s): J44.1 - Chronic obstructive pulmonary disease with (acute) exacerbation; J45.901 - Unspecified asthma with (acute) exacerbation Status: Acute Assessment and Plan: Stable. Continue nebulizer treatments. (4) Atrial fibrillation with RVR: Code(s): I48.91 - Unspecified atrial fibrillation Status: Acute Assessment and Plan: HR was up to 130's on admission so diltiazem drip started. Currently on metoprolol succinate and cardizem cd . HR remains well controlled. (5) DVT (deep venous thrombosis): Qualifiers: DVT location: lower extremity Affected thrombotic vein of extremity: unspecified vein of extremity Chronicity: chronic Laterality: unspecified laterality Qualified Code(s): I82.509 - Chronic embolism and thrombosis of unspecified deep veins of unspecified lower extremity Code(s): I82.409 - Acute embolism and thrombosis of unspecified deep veins of unspecified lower extremity Status: Chronic Assessment and Plan: Patient with known history of DVT. Remains on Eliquis. (6) Closed T6 spinal fracture: Qualifiers: Encounter type: subsequent encounter Fracture morphology: unspecified fracture morphology Fracture healing: with routine healing Qualified Code(s): S22.059D - Unspecified fracture of T5-T6 vertebra, subsequent encounter for fracture with routine healing Code(s): S22.059A - Unspecified fracture of T5-T6 vertebra, initial encounter for closed fracture Status: Acute Assessment and Plan: Identified at outside hospital in January 2020. This has caused severe spinal cord stenosis but unable to intervene surgically per patient. Subjective Date/time seen: 06/20/20 18:04 Interval history: date of visit 06/20. 69yo female with CHF and chronic respiratory failure here for increasing SOB who developed respiratory failure. Pateint extubated 06/16 successfuly. . She passed her swallow evaluation 06/17. . She feels her SOB is better. No CP. Legs feel edematous. no nausea today just asking frequent questions about her back injury again from 6 months ago that would need to be directed at
--- NOTE | 2020-06-20 18:32 | PC.NURSE ---
On 06/20/20, the license-pending RN, Eden Shane, provided care and completed groopify documentation on this patient. I have reviewed the license-pending RN's documentation and agree with the findings.
[2020-06-20] MEDS: GABAPENTIN 300 MG CAPSULE PO (21:45)
[2020-06-21] VITALS (15 sets, daily range): BP systolic 147–149; BP diastolic 83–97; PULSE 58–108; RESP 16–24; TEMP 36.3–36.4; O2SAT 96–99
[2020-06-21] MEDS: IPRATROPIUM BR 0.02% INH SOLN 0.5 MG/2.5 ML VIAL INHALATION ×3 (02:21→14:16)
[2020-06-21] MEDS: ALBUTEROL SULFATE NEB 2.5 MG/0.5 ML INH INHALATION ×3 (02:21→14:16)
[2020-06-21] MEDS: CENTRAL LINE FLUSH 10 ML IV PUSH ×2 (06:46→15:12)
[2020-06-21 07:08] LABS: Blood Urea Nitrogen 15 mg/dL (7-17); Calcium 9.3 mg/dL (8.4-10.2); Carbon Dioxide > 40 mmol/L (22-30); Chloride 84 mmol/L (98-107); Estimated CRCL calculation 79 ml/min; Estimated Glomerular Filt Rate > 60; Glucose 110 mg/dL (65-105); Potassium 3.6 mmol/L (3.4-5.0); Sodium 133 mmol/L (137-145)
[2020-06-21] MEDS: METOPROLOL TARTRATE 12.5 MG TABLET PO (08:34)
[2020-06-21] MEDS: FERROUS SULFATE 324 MG TABLET PO (08:34)
[2020-06-21] MEDS: MULTIVITAMINS THERAPEUTIC TAB (*BKC) 1 TABLET PO (08:34)
[2020-06-21] MEDS: BUMETANIDE 1 MG TABLET PO (08:35)
[2020-06-21] MEDS: FAMOTIDINE 20 MG/2 ML VIAL IV PUSH (08:35)
[2020-06-21] MEDS: ACIDOPHILUS/BULGARICUS CHEWABLE TABLET 1 TABLET PO ×2 (08:35→17:56)
[2020-06-21] MEDS: CHOLECALCIFEROL 1,000 UNIT TABLET 1000 UNITS PO (08:35)
[2020-06-21] MEDS: APIXABAN 5 MG TABLET PO ×2 (08:35→17:56)
[2020-06-21] MEDS: SPIRONOLACTONE 25 MG TABLET PO (08:35)
[2020-06-21] MEDS: FUROSEMIDE 80 MG TABLET PO (08:35)
[2020-06-21] MEDS: polyethylene glycoL 3350 17 GM POWD.PACK PO (08:35)
[2020-06-21] MEDS: ASCORBIC ACID 500 MG TABLET PO (08:35)
[2020-06-21] MEDS: BETAMETHASONE/CLOTRIMAZOLE CR 15 GM TUBE 1 APPLIC TOPICAL (08:36)
[2020-06-21] MEDS: EUCERIN CREAM 120 GM JAR 1 APPLIC TOPICAL (08:36)
[2020-06-21] MEDS: SALINE 0.65% NAS SOLN 44 ML BTL 1 SPRAY NASAL (08:36)
[2020-06-21] MEDS: BISACODYL 10 MG SUPPOSITORY RECTAL (08:57)
[2020-06-21] MEDS: ONDANSETRON INJ 4 MG/2 ML VIAL IV PUSH (15:12)
[2020-06-21] MEDS: CYCLOBENZAPRINE HCL 5 MG TABLET PO (17:55)
[2020-06-21] MEDS: ATORVASTATIN 10 MG TABLET PO (17:56)
--- NOTE | 2020-06-21 18:08 | PM.DS ---
DS: Admitting Diagnosis Admitting Diagnosis Admitting Diagnosis: Heart failure, unspecified DS: Discharge Diagnosis Discharge Diagnosis (1) Acute and chronic respiratory failure, unspecified whether with hypoxia or hypercapnia: Qualifiers: Respiratory failure complication: hypoxia and hypercapnia Qualified Code(s): J96.21 - Acute and chronic respiratory failure with hypoxia; J96.22 - Acute and chronic respiratory failure with hypercapnia Code(s): J96.20 - Acute and chronic respiratory failure, unspecified whether with hypoxia or hypercapnia Status: Acute Assessment and Plan: ABG showing elevated pCO2 prior to intubation and with intubation, pCO2 improved with expected elevated pH since she has chronically elevated pCO2. COVID testing negative. Etiology of her respiratory failure probably multifactorial. treated for CHF and Abx(D#9) for possible CAP. Mostly related to her poorly treated YESENIA with OHS. Suspect at least a component of CHF and probably asthma/COPD. Patient able to be successfully extubated to BiPAP. Pul and respiratory arrange for trilogy unit to be used HS at intermediate and p.r.n. (2) CHF (congestive heart failure): Qualifiers: Heart failure chronicity: acute on chronic Heart failure type: diastolic Qualified Code(s): I50.33 - Acute on chronic diastolic (congestive) heart failure Code(s): I50.9 - Heart failure, unspecified Status: Acute Assessment and Plan: Patient on both Bumex and Lasix listed as home meds. Echo in February showing EF 60-65% with all chambers mild-mod enlargement. BNP 3630. CXR overall appears improved. COVID negative. She remained on IV Lasix with good UOP and negative fluid balance and transition to p.o. Lasix 80 mg daily at discharge. Cr stable and BUN trending down(16/.7). . (3) Asthma exacerbation in COPD: Code(s): J44.1 - Chronic obstructive pulmonary disease with (acute) exacerbation; J45.901 - Unspecified asthma with (acute) exacerbation Status: Acute Assessment and Plan: Stable. Continue nebulizer treatments. (4) Atrial fibrillation with RVR: Code(s): I48.91 - Unspecified atrial fibrillation Status: Acute Assessment and Plan: HR was up to 130's on admission so diltiazem drip started. Currently on metoprolol b.i.d. and cardizem cd . HR remains well controlled. (5) Closed T6 spinal fracture: Qualifiers: Encounter type: subsequent encounter Fracture morphology: unspecified fracture morphology Fracture healing: with routine healing Qualified Code(s): S22.059D - Unspecified fracture of T5-T6 vertebra, subsequent encounter for fracture with routine healing Code(s): S22.059A - Unspecified fracture of T5-T6 vertebra, initial encounter for closed fracture Status: Acute Assessment and Plan: Identified at outside hospital in January 2020. This has caused severe spinal cord stenosis but unable to intervene surgically per patient. encouraged follow-up with neurosurgeon DS: Summary Hospital Course Hospital Course: 69-year-old hypertensive obese white female admitted with respiratory failure thought secondary to COPD/ obstructive sleep apnea, diastolic heart failure, and possibly pneumonia. Intubated mechanically ventilated and eventually extubated and did well. Received 9 days of IV antibiotics of ceftriaxone and azithromycin. Treated with IV Lasix and transitioned to Lasix p.o. 80 at discharge. Ejection fraction 50-55% per echo. Seen by Pulmonary and trilogy unit arrange for HS treatment of her apnea. She was encouraged follow-up with neurosurgeon for ongoing complaints of back and leg pain left CBC and basic metabolic profile drawn within 10 days Time Spent with Patient Time attestation: Total time spent providing and/or coordinating discharge services: 35 minutes Exam Narrative: Exam Narrative: condition on discharge b
== END 2020-06-21 18:34 | DRG 207 ==
LOC: ANHED 18:16 → ANHIMU 18:36 → ANHICU 06-12 21:05 → ANHIMU 06-19 00:42 → ANH2MED 06-20 15:24 → ANHICU 06-24 09:26 → ANHIMU 06-24 09:26 → ANH2MED 06-24 09:26 → ANHICU 06-24 09:26 → ANHIMU 06-24 09:26
PROVIDERS: Family Medicine; Internal Medicine; Internal Medicine Critical Care Medicine; Nurse Practitioner; Admitting Provider Internal Medicine; Emergency Provider Emergency Medicine; PCP Internal Medicine Infectious Disease; Visit Provider Internal Medicine
DX: J96.22 Acute and chronic respiratory failure with hypercapnia (principal); I50.33 Acute on chronic diastolic (congestive) heart failure; J45.901 Unspecified asthma with (acute) exacerbation; E66.2 Morbid (severe) obesity with alveolar hypoventilation; Z68.42 Body mass index [BMI] 45.0-49.9, adult; J44.1 Chronic obstructive pulmonary disease with (acute) exacerbation; I82.509 Chronic embolism and thrombosis of unspecified deep veins of unspecified lower extremity; J96.21 Acute and chronic respiratory failure with hypoxia; Z99.81 Dependence on supplemental oxygen; I11.0 Hypertensive heart disease with heart failure; I48.91 Unspecified atrial fibrillation; D64.9 Anemia, unspecified; I87.2 Venous insufficiency (chronic) (peripheral); Z20.828 Contact with and (suspected) exposure to other viral communicable diseases; S22.051D Stable burst fracture of T5-T6 vertebra, subsequent encounter for fracture with routine healing; S42.302G Unspecified fracture of shaft of humerus, left arm, subsequent encounter for fracture with delayed healing; Z79.01 Long term (current) use of anticoagulants; Z79.899 Other long term (current) drug therapy; Z87.891 Personal history of nicotine dependence
CPT/HCPCS: 31500; 36415; 36600; 71045; 80048; 80053; 80069; 82375; 82607; 82746; 82805; 83050; 83605; 83735; 83880; 84100; 84132; 84484; 85025; 85027; 85610; 85730; 87070; 87205; 87635; 92611; 93005; 94002; 94003; 94640; 94660; 96365; 96366; 96375; 96376; 99285; A9270; C1751; C9803; G0378; J0456; J0696; J1120; J1940; J2250; J2405; J2930; J3010; J3480; J7050; U0003

== ENCOUNTER 2020-07-04 21:04 | Inpatient (IN) | payer MEDICARE, MEDICAID, SELFPAY ==
--- NOTE | ~2020-07-04 | XR_ITS ---
EXAMINATION: XR chest 1V portable INDICATION: Wheezing TECHNIQUE: Portable AP chest at 1538 hours COMPARISON: 07/07/2020 FINDINGS: Airspace opacities of the mid and lower lung zones persist but have improved. There is stab le cardiomegaly. Small pleural effusions are unchanged. There is no pneumothorax. IMPRESSION: 1. Improving airspace opacities of the mid and lower lung zones, consistent with atelectasis versus p neumonia. 2. Stable cardiomegaly. Reviewed, dictated and finalized at location A. IMPRESSION: 1. Improving airspace opacities of the mid and lower lung zones, consistent wit h atelectasis versus pneumonia. 2. Stable cardiomegaly.
--- NOTE | ~2020-07-04 | XR_ITS ---
EXAMINATION: XR abdomen/kub 1V INDICATION: Ileus TECHNIQUE: Supine views of the abdomen were obtained on 2 radiographs. COMPARISON: 07/11/2020 FINDINGS: There is persistent marked distention of the colon to the level of the sigmoid colon. Gas i s seen in the rectum. No free intraperitoneal gas is identified. Punctate calcifications of the upper abdomen are consistent with healed granulomatous disease of the liver and spleen. A vascular stent i s noted in the right pelvis. IMPRESSION: 1. Persistent marked gaseous distention of the colon, consistent with ileus. Reviewed, dictated and finalized at location A.
--- NOTE | ~2020-07-04 | XR_ITS ---
EXAMINATION: XR chest PICC line INDICATION: PICC insertion TECHNIQUE: Portable AP chest at 1507 hours COMPARISON: 07/10/2020 FINDINGS: A right upper extremity PICC has been inserted which ends with its tip at the superior cavo atrial junction. Airspace opacities of the right midlung zone persist and have worsened. There are st able airspace opacities of the lung bases. No pleural effusion or pneumothorax is identified. There i s stable cardiomegaly. There are multiple markedly distended large bowel loops of the partially visua lized abdomen. IMPRESSION: 1. Right upper extremity PICC ending with its tip at the superior cavoatrial junction. 2. Stable bibasilar airspace opacities and worsening opacities of the right midlung zone, consistent with atelectasis versus pneumonia. 3. Distended bowel in the partially imaged abdomen. Reviewed, dictated and finalized at location A. IMPRESSION: 1. Right upper extremity PICC ending with its tip at the superior cavoatrial ju nction. 2. Stable bibasilar airspace opacities and worsening opacities of the right mid lung zone, consistent with atelectasis versus pneumonia. 3. Distended bowel in the partially imaged abdomen.
--- NOTE | ~2020-07-04 | XR_ITS ---
EXAMINATION: XR chest 1V portable EXAM DATE: 07/04/2020 22:08 INDICATION: Shortness of breath. TECHNIQUE: Portable AP frontal chest x-ray was obtained. Comparison is made to prior examination from 06/14/2020. FINDINGS: There is no significant interval change. There is cardiomegaly and pulmonary vascular conge stion. There is bilateral pleural blunting, probably small pleural effusions. Some retrocardiac airsp chiquis disease probably atelectasis but pneumonia or edema not excludable. No pneumothorax. There are rajwinder ny degenerative changes. IMPRESSION: 1. Nonspecific retrocardiac airspace disease. 2. Cardiomegaly and congestion. 3. Pleural blunting. Reviewed, dictated and finalized at location G.
--- NOTE | ~2020-07-04 | MR_ITS ---
EXAMINATION: MR thoracic spine wo/w con DATE: 07/07/2020 15:40 INDICATION: T6 fracture. Bacteremia. TECHNIQUE: Magnetic resonance imaging (MRI) of the thoracic spine was performed without and with 20 m L MultiHance intravenous contrast. Sequences included sagittal and axial T2-weighted FSE, sagittal ST IR FSE, and sagittal and axial T1-weighted FSE. Postcontrast sequences included sagittal and axial T1 -weighted FS FSE. COMPARISON: Thoracic spine MRI 04/04/2020 FINDINGS: There is a burst fracture of T5 with 3/5 loss of height, retropulsion of bone 3 mm into roly tral spinal canal, and bone marrow edema. There is a burst fracture of T6 with 4/5 loss of height, re tropulsion of bone 3 mm into central spinal canal, and bone marrow edema. There is a burst fracture o f T7 with 2/5 loss of height and bone marrow edema. There is focal kyphosis at these levels. There is bone marrow edema of the T8 posterior elements and left pedicle. There is severely decreased disc he ight at T5-T6 and moderately decreased disc height at T6-T7 with increased T2-weighted signal intensi ty. The discs do not enhance. There is contrast enhancement of the epidural space around the levels o f fracture. There is mildly decreased disc height from T7-T8 through T9-T10. There is multilevel face t joint osteoarthritis. At T5-T6, there is moderate bilateral neural foraminal stenosis. At T6-T7, th ere is severe bilateral neural foraminal stenosis. There is mild neural foraminal stenosis bilaterall y at T9-T10 and T10-T11. The spinal cord demonstrates increased T2-weighted signal intensity at T5 an d T6. IMPRESSION: 1. Subacute burst fractures of T5, T6, and T7, stable from 04/04/2020. 2. Abnormal signal in the T5-T6 and T6-T7 discs, suspicious for discitis. Bone marrow edema in T5-T8 may be secondary to fractures and/or osteomyelitis. 3. Persistent increased T2-weighted signal intensity in the spinal cord at T5 and T6, consistent with edema versus myelomalacia. Reviewed, dictated and finalized at location A. IMPRESSION: 1. Subacute burst fractures of T5, T6, and T7, stable from 04/04/2020. 2. Abnormal signal in the T5-T6 and T6-T7 discs, suspicious for discitis. Bone marrow edema in T5-T8 may be secondary to fractures and/or osteomyelitis. 3. Persistent increased T2-weighted signal intensity in the spinal cord at T5 a nd T6, consistent with edema versus myelomalacia.
--- NOTE | ~2020-07-04 | CT_ITS ---
EXAMINATION: CT abdomen pelvis wo con DATE: 07/12/2020 09:01 INDICATION: Abdominal distention, ileus TECHNIQUE: Computed tomography (CT) of the abdomen and pelvis was performed without intravenous contr ast. The dose-length product (DLP) was 1475.23 mGy-cm. Automated exposure control and iterative recon struction technique were employed. COMPARISON: 02/19/2020 FINDINGS: There are small pleural effusions. Mild dependent atelectasis is noted. Cardiomegaly is not ed. Punctate calcifications in otherwise normal appearing liver and spleen likely represent healed gr anulomatous disease. The pancreas, gallbladder, and adrenal glands are normal. Cysts of the kidneys m easure up to 5 cm on the left. There is a 3 mm nonobstructing stone of the right kidney. No pathologi sania enlarged abdominal or pelvic lymph nodes are identified. There is distention of the ascending a nd transverse colon with air-fluid levels. No distinct transition point is identified. Liquid stool i s present throughout the colon to the level of the rectum. There is no free intraperitoneal gas. An e ndoluminal stent is noted in the right common iliac vein. A chronic compression fracture of the L4 ve rtebral body is noted. IMPRESSION: 1. Distended ascending and transverse colon without focal transition point, consistent with ileus. 2. Small pleural effusions with bibasilar atelectasis. 3. Cardiomegaly. Reviewed, dictated and finalized at location A. IMPRESSION: 1. Distended ascending and transverse colon without focal transition point, con sistent with ileus. 2. Small pleural effusions with bibasilar atelectasis. 3. Cardiomegaly.
--- NOTE | ~2020-07-04 | XR_ITS ---
EXAMINATION: XR chest 1V portable DATE: 07/07/2020 14:00 INDICATION: Lung infiltrates. Abnormal chest radiograph. TECHNIQUE: A single frontal view of the chest was obtained. COMPARISON: Chest single view 07/04/2020, chest CT 02/19/2020 FINDINGS: Sensitivity is decreased by obesity. There are airspace opacities in the mid and lower lung zones. There are small pleural effusions. No pneumothorax. Cardiomegaly is noted. IMPRESSION: 1. Stable airspace opacities in the mid and lower lung zones, consistent with atelectasis versus pneu monia. 2. Small pleural effusions. 3. Cardiomegaly. Reviewed, dictated and finalized at location A. IMPRESSION: 1. Stable airspace opacities in the mid and lower lung zones, consistent with a telectasis versus pneumonia. 2. Small pleural effusions. 3. Cardiomegaly.
--- NOTE | ~2020-07-04 | XR_ITS ---
EXAMINATION: XR abdomen/kub 1V DATE: 07/11/2020 15:17 INDICATION: Distended abdomen TECHNIQUE: A supine view of the abdomen on 2 radiographs was obtained. COMPARISON: 06/12/2020 FINDINGS: Marked gaseous distention of the ascending and transverse colon with small amounts of gas in the more distal colon. No dilated gas-filled loops of small bowel. Right common to external iliac vein stent. Mild right basilar atelectasis. IMPRESSION: 1. Prominent gaseous distention of the ascending and transverse colon which could be related to adyna onel ileus or colonic obstruction near the level of the hepatic flexure. Consider correlation with eit her CT of the abdomen and pelvis or water-soluble contrast enema. Reviewed, dictated and finalized at location A. IMPRESSION: 1. Prominent gaseous distention of the ascending and transverse colon which cou ld be related to adynamic ileus or colonic obstruction near the level of the he patic flexure. Consider correlation with either CT of the abdomen and pelvis or water-soluble contrast enema.
[2020-07-04 21:05] VITALS: BP 144/99; PULSE 98; RESP 22; TEMP 39.2; O2SAT 100
--- NOTE | 2020-07-04 21:21 | ED.SOB ---
HPI - SOB/Dyspnea General Chief Complaint: Shortness of Breath/Dyspnea Stated Complaint: diff breathing Time Seen by Provider: 07/04/20 21:20 History of Present Illness HPI Narrative: Brought in by EMS from residential for SOB. residential reported O2 sat in the 40s. Here oxygen saturation is 100% on 2 liters. She denies SOB. History limited by dementia. Related Data Home Medications Medication Instructions Recorded Confirmed Eliquis 5 mg PO BID 02/12/20 07/05/20 acetaminophen 650 mg PO Q4H PRN 02/12/20 07/05/20 cholecalciferol (vitamin D3) 25 mcg PO DAILY 02/12/20 07/05/20 ferrous sulfate 325 mg PO DAILY 02/12/20 07/05/20 albuterol sulfate [Ventolin HFA] 2 puff INHALATION Q6H PRN 03/28/20 07/05/20 atorvastatin 10 mg PO QPM 03/28/20 07/05/20 cyclobenzaprine 5 mg PO PRN PRN 03/28/20 07/05/20 ascorbic acid (vitamin C) 500 mg PO DAILY 06/10/20 07/05/20 clotrimazole-betamethasone 1 applic TOPICAL BID 06/10/20 07/05/20 gabapentin 300 mg PO HS 06/10/20 07/05/20 metoprolol tartrate 12.5 mg PO Q12H 06/10/20 07/05/20 multivitamin 1 tablet PO DAILY 06/10/20 07/05/20 simvastatin 20 mg PO HS 06/10/20 07/05/20 sodium chloride [[place] Nasal] 1 spray INTRANASAL BID 06/10/20 07/05/20 spironolactone 25 mg PO DAILY 06/10/20 07/05/20 docusate sodium [Colace] 100 mg PO DAILY 07/05/20 07/05/20 Allergies Allergy/AdvReac Type Severity Reaction Status Date / Time levofloxacin [From Levaquin] Allergy Mild Rash Verified 06/10/20 18:46 adhesive tape AdvReac Mild Itching Verified 06/10/20 18:46 TaperDex Allergy Unknown Uncoded 06/10/20 18:46 Review of Systems Review of Systems: Narrative: ROS limited by dementia Cardiovascular: Cardiovascular: Denies chest pain Respiratory: Respiratory: Denies dyspnea Gastrointestinal: Gastrointestinal: Denies abdominal pain PMFSH Past Medical History Medical History Atrial fibrillation Congestive heart failure DVT (deep venous thrombosis) on Eliquis Hypertension Left humeral fracture Morbid obesity Sepsis due to methicillin susceptible Staphylococcus aureus (MSSA) with acute hypercapnic respiratory failure Stable burst fracture of t5-T6 vertebra, initial encounter for closed fracture Venous stasis dermatitis Surgical History Surgical History H/O hernia repair Ventral S/P appendectomy Family History Family History Sibling Esophagus cancer brother Liver disease brother Heart disease sister Father Heart disease Diabetes mellitus Hypertension Mother Heart disease Hypertension Social History Social History Social History: The patient is . She has 3 sons and 2 daughters. She lives at [facility]. She was independent prior to this fracture. She used to smoke and quit over 30 years ago. Patient is a full code. 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 No alcohol marijuana or illicit drugs. Smoking status: Former smoker Tobacco type: cigarettes Second hand tobacco smoke exposure: No Alcohol intake: unknown Substance use: never Substance use type: does not use Gender identity (if verbalized by the patient): Female Spiritual care concerns: No Agree to blood products: Yes Exam Const: General: no acute distress, alert and ill appearing Nutritional Appearance: obese HENMT: Head: normal to inspection Resp: Effort & Inspection: normal respiratory effort Auscultation: diminished lung sounds Cardio: Rate: regular rate Rhythm: regular rhythm GI: GI Palp: Yes Soft to palpation and No Tenderness to palpation present (GI) Skin: General skin exam: normal color Wounds: no wounds Neuro: General: moves all extremities and CN's II-XI intact bilaterally Speech: Abnormal spe
--- NOTE | 2020-07-04 21:24 | ECG_ITS ---
Measurements Intervals [place] Rate: 101 P: DC: 0 QRS: -12 QRSD: 113 T: 85 QT: 385 QTc: 501 Interpretive Statements ATRIAL FIBRILLATION WITH RAPID VENTRICULAR RESPONSE VENTRICULAR PREMATURE COMPLEXES INTRAVENTRICULAR CONDUCTION DELAY NONSPECIFIC ST & T-WAVE ABNORMALITY- DIFFUSE LEADS BASELINE ARTIFACT- I, III, AVR, AVL, AVF ABNORMAL ECG Electronically Signed On 07-05-2020 7:06:15 CDT by Mike Carrasquillo D.O.
[2020-07-04 21:37] LABS: Basophils Percent Auto 0.3 % (0.2-1.2); Eosinophils Percent Auto 0.1 % (0-4.4); Hemoglobin 9.4 g/dL (12.0-15.0); Immature Granulocyte Absolute 0.05 K/mm3 (0.00-0.031); Immature Granulocyte Percent A 0.5 % (0-0.5); Lymphocytes Absolute Auto 0.43 K/mm3 (0.9-3.2); Mean Corpuscular HGB Conc 31.3 g/dl (32-36); Mean Corpuscular Hemoglobin 30.1 pg (26-34); Mean Corpuscular Volume 96.2 fl (80-100); Mean Platelet Volume 9.7 fl (7.4-10.4); Monocytes Absolute Auto 1.2 K/mm3 (0.1-0.6); Monocytes Percent Auto 11.4 % (2.6-8.5); Neutrophils Percent Auto 83.7 % (45.5-73.1); Platelet Count Result 269 k/mm3 (150-375); Red Blood Count 3.12 M/mm3 (4.2-5.4); Red Cell Distribution Width 14.2 % (11.5-14.5); White Blood Count 10.7 K/mm3 (4.5-10.0)
[2020-07-04 21:48] LABS: Lactic Acid 1.2 mmol/L (0.7-2.1)
[2020-07-04 21:51] LABS: Anion Gap 11 mmol/L (8-16); Blood Urea Nitrogen 28 mg/dL (7-17); Calcium 8.8 mg/dL (8.4-10.2); Carbon Dioxide 38 mmol/L (22-30); Chloride 81 mmol/L (98-107); Estimated CRCL calculation 72 ml/min; Estimated Glomerular Filt Rate > 60; Glucose 144 mg/dL (65-105); Potassium 2.5 mmol/L (3.4-5.0); Sodium 130 mmol/L (137-145)
[2020-07-04 22:09] LABS: Alveolar/Arterial O2 Gradient 83.8 mmHg; Base Excess ABG 12.5 mEq/l (+/-2.0); Fractional Inspired Oxygen 28 %; HCO3 ABG 39.1 mEq/l (22.0-26.0); Oxygen Content ABG 11.8 %vol (16.0-22.0); Oxyhemoglobin 76.8 % THb (90.0-100.0); PO2 FiO2 Ratio Arterial Blood 1.56 %; Total Hemoglobin 10.9 g/dL (12.0-18.0); pH ABG 7.423 (7.350-7.450)
[2020-07-04 22:11] LABS: Add Urine Microscopic? YES; Appearance Urine Clear (Clear); Bacteria Urine 3+ /hpf; Bilirubin Urine Negative (Negative); Color Urine Yellow (Yellow); Glucose Urine UA Negative (Negative); Ketones Urine Negative (Negative); Leukocyte Esterase Ur 3+ LEU/UL (Negative); Nitrate Urine Negative (Negative); Protein Urine Negative (Negative); RBC Urine 0-2 /hpf (0-2); Specific Grav Ur 1.009 (1.001-1.035); Squamous Epithelial Cell Urine Rare /hpf (Few); Urobilinogen Urine Negative mg/dL (<2.0); WBC Clumps Urine Present /HPF; WBC Urine 51-75 /hpf
[2020-07-04 22:15] LABS: Blood Urine Negative (Negative)
[2020-07-04 22:24] LABS: PCO2 ABG 61.2 mmHg (35.0-45.0); PO2 ABG 43.6 mmHg (80.0-100.0)
[2020-07-04 22:25] LABS: Device NASAL CANNULA; Modified Allen's Test Pass; Oxygen Saturation ABG 78.9 % (95.0-100.0); Site Drawn LEFT RADIAL
[2020-07-04 22:25] LABS: INR 2.1; Prothrombin Time 22.9 Seconds (11.1-14.7)
[2020-07-04 22:26] LABS: Partial Thromboplastin Time 56.9 SECONDS (22.3-36.8)
[2020-07-04 22:38] VITALS: BP 140/78; PULSE 101; RESP 31; O2SAT 100
[2020-07-04 22:42] LABS: D Dimer 3.01 ug/mL (<0.48); Lactate Dehydrogenase 380 U/L (313-618)
[2020-07-04 23:15] VITALS: BP 114/60; PULSE 103; RESP 22; TEMP 37.7; O2SAT 98
[2020-07-05] VITALS (28 sets, daily range): BP systolic 102–119; BP diastolic 62–90; PULSE 62–105; RESP 16–26; TEMP 35.8–39.4; O2SAT 93–100; BMI 44.1
--- NOTE | 2020-07-05 00:03 | PM.IMHP ---
H&P: HPI History of Present Illness Date/Time: 07/05/20 00:03 Chief complaint: Acute respiratory failure, hypokalemia, uti Narrative: This is a 69 year old female Who has a history of chronic diastolic congestive heart failure w/ EF of 55% [facility] sats this evening. The patient was recently hospitalized a few weeks ago for acute respiratory failure, CHF exacerbation and was on mechanical ventilation during that hospitalization. The patient was found to be saturating in the 70s tonight at the [facility] and sent to the hospital for evaluation. She is not known to be on oxygen at the [facility]. The patient was tested for COVID-19 during her last hospitalization and was negative. Tonight in the ER the patient was evaluated and ABG demonstrated hypoxemia with a pO2 of 43.6 on 2 liters per minute of oxygen via NC. Urinalysis was grossly abnormal. CXR demonstrated pulmonary congestion. She was also found to have hypokalemia and treated with KCL IV. The patient was also found to be febrile. She was swabbed for COVID-19 again. On my encounter with the patient she denies any signficant shortness of breath, cough, chest pain, headache, dizziness, abdominal pain, wheezing, sore throat, dysuria, hematuria, diarrhea, nausea, vomiting, LE swelling, or rectal bleeding. She admits to me that she has been on [facility]ix [facility] at the [facility]. Review of Systems Review of Systems: All systems reviewed & are unremarkable except as noted in HPI and below PMFSH Past Medical History Medical History Atrial fibrillation Congestive heart failure DVT (deep venous thrombosis) on Eliquis Hypertension Left humeral fracture Morbid obesity Sepsis due to methicillin susceptible Staphylococcus aureus (MSSA) with acute hypercapnic respiratory failure Stable burst fracture of t5-T6 vertebra, initial encounter for closed fracture Venous stasis dermatitis Surgical History Surgical History H/O hernia repair Ventral S/P appendectomy Family History Family History Sibling Esophagus cancer brother Liver disease brother Heart disease sister Father Heart disease Diabetes mellitus Hypertension Mother Heart disease Hypertension Social History Social History Social History: The patient is . She has 3 sons and 2 daughters. She lives at [facility]. She was independent prior to this fracture. She used to smoke and quit over 30 years ago. Patient is a full code. 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 No alcohol marijuana or illicit drugs. Smoking status: Former smoker Tobacco type: cigarettes Second hand tobacco smoke exposure: No Alcohol intake: unknown Substance use: never Substance use type: does not use Gender identity (if verbalized by the patient): Female Spiritual care concerns: No Agree to blood products: Yes Meds Home Medications and Allergies Home Medications Medication Instructions Recorded Confirmed Type Eliquis 5 mg PO BID 02/12/20 07/05/20 History acetaminophen 650 mg PO Q4H PRN 02/12/20 07/05/20 History cholecalciferol (vitamin D3) 25 mcg PO DAILY 02/12/20 07/05/20 History ferrous sulfate 325 mg PO DAILY 02/12/20 07/05/20 History polyethylene glycol 3350 17 g PO DAILY #0 ea 03/11/20 07/05/20 Rx albuterol sulfate [Ventolin HFA] 2 puff INHALATION Q6H PRN 03/28/20 07/05/20 History atorvastatin 10 mg PO QPM 03/28/20 07/05/20 History cyclobenzaprine 5 mg PO PRN PRN 03/28/20 07/05/20 History ascorbic acid (vitamin C) 500 mg PO DAILY 06/10/20 07/05/20 History clotrimazole-betamethasone 1 applic TOPICAL BID 06/10/20 07/05/20 History gabapentin 300 mg PO HS 06/10/20 07/05/20 History m
--- NOTE | 2020-07-05 00:12 | ADMIMU ---
This patient, Trina Larkin, was admitted to IMU status, and placed in Intensive Care Unit-2. Patient/family oriented to hospital policies and general routines including ID bracelet, bed and alarms, visiting hours, pain management, procedures, bathroom and other care routines, personal items, smoking policy, room service/diet, and visiting hours. Valuables list has been completed. Information on how to activate the Rapid Response Team has been discussed. Patient/Family are encouraged to report perceived risks to care and to ask questions if they do not understand what they are told or what they should do.
[2020-07-05 01:16] LABS: Alveolar/Arterial O2 Gradient 48.7 mmHg; Base Excess ABG 8.7 mEq/l (+/-2.0); Device NASAL CANNULA; Fractional Inspired Oxygen 36 %; HCO3 ABG 36.5 mEq/l (22.0-26.0); Modified Allen's Test Pass; Oxygen Content ABG 13.4 %vol (16.0-22.0); Oxygen Saturation ABG 98.1 % (95.0-100.0); Oxyhemoglobin 96.6 % THb (90.0-100.0); PCO2 ABG 71.3 mmHg (35.0-45.0); PO2 ABG 125.3 mmHg (80.0-100.0); PO2 FiO2 Ratio Arterial Blood 3.48 %; Site Drawn RIGHT RADIAL; Total Hemoglobin 9.7 g/dL (12.0-18.0); pH ABG 7.327 (7.350-7.450)
--- NOTE | 2020-07-05 05:40 | ECHO_ITS ---
Patient Info Name: Trina Larkin Age: 70 years : 1950 Gender: Female Ht: 61 in Wt: 239 lbs BSA: 2.23 m2 HR: 78 bpm BP: 117 / 69 mmHg Heart Rhythm: Atrial Fibrillation Technical Quality: Good Exam Date: 07/05/2020 2:30 PM Exam Location: [facility] Patient Status: Inpatient Admit Date: 07/04/2020 Staff Ordering Physician: Arnoldo Vega MD Surgical Endoscopist: Cong Simpson RDCS, RT Attending Provider: Arnoldo Vega MD Referring Physician: Silvia DELA CRUZ; Exam Type: CA echo dop color flow w con Study Info Indications I50.9 - Heart failure, unspecified Complete two-dimensional, color flow and Doppler transthoracic echocardiogram is performed with contrast to opacify the left ventricle and to improve the deliniation of the left ventricle endocardial borders. Summary 1. Definity contrast injected to improve visualization. 2. Left ventricular systolic function is normal, estimated at 55-60%. 3. Left atrial chamber dimension is moderately enlarged. 4. Right ventricular chamber dimension is mildly enlarged. 5. Right ventricular systolic function is reduced. Left Ventricle Left ventricular chamber dimension is normal. Left ventricular systolic function is normal, estimated at 55-60%. Definity contrast injected to improve visualization. Right Ventricle Right ventricular chamber dimension is mildly enlarged. Right ventricular systolic function is reduced. Left Atria Left atrial chamber dimension is moderately enlarged. Right Atria Right atrial chamber dimension is normal. Aortic Valve The aortic valve is normal. Pulmonic Valve The pulmonic valve is not well visualized. Mitral Valve The mitral valve has normal leaflets. There is trace mitral valve regurgitation. Tricuspid Valve The tricuspid valve leaflets are normal. There is mild tricuspid valve regurgitation. Pericardium/Pleural The pericardium appears normal. Aorta The aortic root size at the sinus of Valsalva is normal. Left Ventricular Outflow Tract Name Value Normal LVOT 2D LVOT Diameter 2.17 cm LVOT Doppler LVOT Peak Gradient 7 mmHg LVOT Mean Gradient 4 mmHg LVOT VTI 23.40 cm LVOT VTI/AV VTI Ratio 0.95 LVOT Stroke Volume 86.12 ml LVOT CO 6.98 l/min LVOT CI 3.14 L/min/m2 Pulmonic Valve Name Value Normal RVOT Doppler RVOT Peak Gradient 4 mmHg RVOT Mean Gradient 2 mmHg Mitral Valve Name Value Normal MV Doppler
[2020-07-05 06:16] LABS: Alveolar/Arterial O2 Gradient 55.9 mmHg; Base Excess ABG 8.1 mEq/l (+/-2.0); Fractional Inspired Oxygen 30 %; HCO3 ABG 34.7 mEq/l (22.0-26.0); Oxygen Content ABG 13.9 %vol (16.0-22.0); Oxygen Saturation ABG 96.3 % (95.0-100.0); Oxyhemoglobin 94.4 % THb (90.0-100.0); PCO2 ABG 59.8 mmHg (35.0-45.0); PO2 ABG 87.7 mmHg (80.0-100.0); PO2 FiO2 Ratio Arterial Blood 2.92 %; Total Hemoglobin 10.4 g/dL (12.0-18.0); pH ABG 7.381 (7.350-7.450)
[2020-07-05 06:35] LABS: Anion Gap 9 mmol/L (8-16); Blood Urea Nitrogen 25 mg/dL (7-17); Calcium 8.8 mg/dL (8.4-10.2); Carbon Dioxide 38 mmol/L (22-30); Chloride 83 mmol/L (98-107); Estimated CRCL calculation 60 ml/min; Estimated Glomerular Filt Rate > 60; Glucose 188 mg/dL (65-105); Potassium 2.7 mmol/L (3.4-5.0); Sodium 130 mmol/L (137-145)
[2020-07-05 06:52] LABS: Modified Allen's Test Pass; Site Drawn LEFT RADIAL
[2020-07-05 06:53] LABS: Device NON-INVASIVE VENT; Non-Invasive Expiratory Pressure 6 CMH2O; Non-Invasive Inspiratory Pressure 12 CMH2O; Non-Invasive Vent Rate 18 /MIN
--- NOTE | 2020-07-05 07:56 | PCRCNOTE ---
0800 inhalers not given at this time. pt. is on cont. bipap.
[2020-07-05] MEDS: SPIRONOLACTONE 25 MG TABLET PO (08:38)
[2020-07-05] MEDS: ASCORBIC ACID 500 MG TABLET PO (08:38)
[2020-07-05] MEDS: METOPROLOL TARTRATE 12.5 MG TABLET PO ×2 (08:38→21:22)
[2020-07-05] MEDS: CHOLECALCIFEROL 1,000 UNITS TABLET 1000 UNITS PO (08:38)
[2020-07-05] MEDS: APIXABAN 5 MG TABLET PO ×2 (08:38→17:28)
[2020-07-05] MEDS: MULTIVITAMINS THERAPEUTIC TAB (*BKC) 1 TABLET PO (08:38)
[2020-07-05] MEDS: FERROUS SULFATE 324 MG TABLET PO (08:39)
[2020-07-05] MEDS: SALINE 0.65% NAS SOLN 44 ML BTL 1 SPRAY NASAL ×2 (08:39→17:28)
[2020-07-05] MEDS: BETAMETHASONE/CLOTRIMAZOLE CR 15 GM TUBE 1 APPLIC TOPICAL (08:39)
[2020-07-05 08:40] LABS: Basophils Percent Auto 0.1 % (0.2-1.2); Hematocrit 26.8 % (37.0-47.0); Hemoglobin 8.7 g/dL (12.0-15.0); Immature Granulocyte Absolute 0.04 K/mm3 (0.00-0.031); Immature Granulocyte Percent A 0.5 % (0-0.5); Lymphocytes Absolute Auto 0.48 K/mm3 (0.9-3.2); Lymphocytes Percent Auto 5.9 % (18.3-44.2); Mean Corpuscular HGB Conc 32.5 g/dl (32-36); Mean Corpuscular Volume 95.4 fl (80-100); Mean Platelet Volume 10.6 fl (7.4-10.4); Monocytes Absolute Auto 0.5 K/mm3 (0.1-0.6); Monocytes Percent Auto 5.6 % (2.6-8.5); Neutrophils Absolute Auto 7.1 K/mm3 (1.3-6.7); Neutrophils Percent Auto 87.9 % (45.5-73.1); Platelet Count Result 208 k/mm3 (150-375); Red Blood Count 2.81 M/mm3 (4.2-5.4); Red Cell Distribution Width 14.3 % (11.5-14.5); White Blood Count 8.1 K/mm3 (4.5-10.0)
[2020-07-05 09:57] LABS: Anion Gap 9 mmol/L (8-16); Blood Urea Nitrogen 26 mg/dL (7-17); Calcium 8.9 mg/dL (8.4-10.2); Carbon Dioxide 38 mmol/L (22-30); Chloride 84 mmol/L (98-107); Estimated CRCL calculation 67 ml/min; Estimated Glomerular Filt Rate > 60; Glucose 184 mg/dL (65-105); Potassium 2.7 mmol/L (3.4-5.0); Sodium 131 mmol/L (137-145)
[2020-07-05] MEDS: POTASSIUM CHLORIDE 20 MEQ TABLET 40 MEQ PO ×4 (11:24→21:56)
[2020-07-05 14:00] LABS: SARS-CoV-2 RNA PCR Negative
[2020-07-05] MEDS: ALBUTEROL SULFATE (*SP) AEROSOL 1 PUFF 2 PUFF INHALATION (14:07)
[2020-07-05] MEDS: PERFLUTREN LIPID MICROSPHERES 1.5 ML VIAL DILUTED TO 10 ML TOTAL VOLUME IV PUSH (15:07)
--- NOTE | 2020-07-05 16:23 | PM.IMPN ---
Progress Note: A&P Assessment and Plan (1) CHF (congestive heart failure): Qualifiers: Heart failure chronicity: acute on chronic Heart failure type: diastolic Qualified Code(s): I50.33 - Acute on chronic diastolic (congestive) heart failure Code(s): I50.9 - Heart failure, unspecified Status: Acute Assessment and Plan: may be mild acute on chronic diastolic heart failure . Echocardiogram in January had any EF of 50-55% but with repeated admissions will repeat echo to assess further resume Lasix. (2) Sepsis: Qualifiers: Sepsis type: sepsis due to unspecified organism Sepsis acute organ dysfunction status: with acute organ dysfunction Severe sepsis acute organ dysfunction type: acute respiratory failure Acute respiratory failure type: with hypercapnia Severe sepsis shock status: without septic shock Qualified Code(s): A41.9 - Sepsis, unspecified organism; R65.20 - Severe sepsis without septic shock; J96.02 - Acute respiratory failure with hypercapnia Code(s): A41.9 - Sepsis, unspecified organism Status: Acute Assessment and Plan: w/ fever, tachycardia, tachypnea. Source of sepsis may be pulmonary vs. urinary but favor urinary since chest x-ray looks fairly clear and just treated for possible pneumonitis with negative swallow study before. continue antibiotics pending results of cultures. (3) Abnormal urinalysis: Code(s): R82.90 - Unspecified abnormal findings in urine Status: Acute Assessment and Plan: r/o UTI - Conitinue IV antibiotics. Urine culture pending. (4) Atrial fibrillation: Qualifiers: Atrial fibrillation type: unspecified chronic Qualified Code(s): I48.20 - Chronic atrial fibrillation, unspecified Code(s): I48.91 - Unspecified atrial fibrillation Status: Chronic Assessment and Plan: Currently rate controlled. Continue diltizem and Eliquis. and low-dose metoprolol (5) Hypertension: Qualifiers: Hypertension type: essential hypertension Qualified Code(s): I10 - Essential (primary) hypertension Code(s): I10 - Essential (primary) hypertension Status: Chronic Assessment and Plan: Monitor blood pressure. continue home antihypertensives. low-dose metoprolol and diltiazem (6) DVT prophylaxis: Code(s): Z29.9 - Encounter for prophylactic measures, unspecified Status: Acute Assessment and Plan: continue Eliquis. Past history of DVT Subjective Date/time seen: 07/05/20 16:23 Interval history: date of visit 07/05. 70-year-old hypertensive white female productive sleep apnea, atrial fibrillation, diastolic heart failure recently diagnosed with respiratory failure and possible pneumonia. She was hypoxic and febrile at the [facility] transfer to ER. Here on 2 L increased to 100% . Chest x-ray no definite infiltrates but some congestion and she had pyuria. Met the criteria for sepsis, was culture placed on antibiotics and admitted. Doing better this a.m. after BiPAP treatment. Exam Narrative: Exam Narrative: blood pressure 112/66 pulse is 82 saturating 97% on 1 L nasal cannula afebrile with a T-max of 39.4? pupils equal reactive light sclera anicteric mouth not checked with BiPAP on neck supple lungs decreased breath sounds hear no definite consolidation or or wheezing CV irregular hear no murmur abdomen is soft nontender no masses extremities without edema distal pulses are 2+. minimal movement of lower extremities after T6 spinal fracture in January of this year Objective Data Vital Signs Vital Signs: Vital Signs - 24 hr 07/04/20 21:05 07/04/20 22:38 07/04/20 23:15 Temperature 39.2 C H 37.7 C H Pulse Rate 98 101 H 103 H Respiratory Rate 22 H 31 H 22 H Blood Pressure 144/99 H 140/78 114/60 Pulse Oximetry 100 100 98 07/05/20 00:00 07/05/20 00:19 07/05/20 00:43 Temperature 37.7 C H 39.2 C H Pulse Rate 102 H 103 H 97 Respir
[2020-07-05] MEDS: ATORVASTATIN 10 MG TABLET PO (17:32)
[2020-07-05] MEDS: FUROSEMIDE INJ 40 MG/4 ML VIAL IV PUSH (17:32)
[2020-07-05] MEDS: ACETAMINOPHEN 325 MG TABLET 650 MG PO (18:18)
[2020-07-05 19:22] LABS: Anion Gap 8 mmol/L (8-16); Blood Urea Nitrogen 24 mg/dL (7-17); Calcium 9.1 mg/dL (8.4-10.2); Carbon Dioxide 38 mmol/L (22-30); Chloride 86 mmol/L (98-107); Estimated CRCL calculation 75 ml/min; Estimated Glomerular Filt Rate > 60; Glucose 269 mg/dL (65-105); Potassium 3.6 mmol/L (3.4-5.0); Sodium 132 mmol/L (137-145)
[2020-07-05] MEDS: ALBUTEROL SULFATE NEB 2.5 MG/0.5 ML INH 5 MG INHALATION (20:09)
[2020-07-05] MEDS: KETOROLAC 30 MG/ML VIAL (*BKC) IV PUSH (21:55)
[2020-07-06] VITALS (23 sets, daily range): BP systolic 105–135; BP diastolic 54–97; PULSE 70–97; RESP 18–24; TEMP 35.5–36.5; O2SAT 94–100; BMI 11.0
[2020-07-06] MEDS: ALBUTEROL SULFATE NEB 2.5 MG/0.5 ML INH 5 MG INHALATION ×4 (01:54→21:38)
[2020-07-06 07:20] LABS: Basophils Percent Auto 0.1 % (0.2-1.2); Hemoglobin 8.1 g/dL (12.0-15.0); Immature Granulocyte Absolute 0.05 K/mm3 (0.00-0.031); Immature Granulocyte Percent A 0.7 % (0-0.5); Lymphocytes Absolute Auto 0.77 K/mm3 (0.9-3.2); Lymphocytes Percent Auto 11.2 % (18.3-44.2); Mean Corpuscular HGB Conc 31.2 g/dl (32-36); Mean Corpuscular Hemoglobin 29.9 pg (26-34); Mean Corpuscular Volume 95.9 fl (80-100); Mean Platelet Volume 9.8 fl (7.4-10.4); Monocytes Absolute Auto 0.7 K/mm3 (0.1-0.6); Monocytes Percent Auto 10.8 % (2.6-8.5); Neutrophils Absolute Auto 5.3 K/mm3 (1.3-6.7); Neutrophils Percent Auto 77.2 % (45.5-73.1); Platelet Count Result 233 k/mm3 (150-375); Red Blood Count 2.71 M/mm3 (4.2-5.4); Red Cell Distribution Width 13.7 % (11.5-14.5); White Blood Count 6.9 K/mm3 (4.5-10.0)
[2020-07-06 07:31] LABS: Anion Gap 10 mmol/L (8-16); Blood Urea Nitrogen 30 mg/dL (7-17); Calcium 8.8 mg/dL (8.4-10.2); Carbon Dioxide 36 mmol/L (22-30); Chloride 87 mmol/L (98-107); Estimated CRCL calculation 54 ml/min; Estimated Glomerular Filt Rate 55; Glucose 141 mg/dL (65-105); Potassium 3.4 mmol/L (3.4-5.0); Sodium 133 mmol/L (137-145)
[2020-07-06] MEDS: APIXABAN 5 MG TABLET PO ×2 (08:42→16:26)
[2020-07-06] MEDS: BETAMETHASONE/CLOTRIMAZOLE CR 15 GM TUBE 1 APPLIC TOPICAL ×2 (08:43→16:25)
[2020-07-06] MEDS: METOPROLOL TARTRATE 12.5 MG TABLET PO ×2 (08:43→21:02)
[2020-07-06] MEDS: CHOLECALCIFEROL 1,000 UNITS TABLET 1000 UNITS PO (08:43)
[2020-07-06] MEDS: ASCORBIC ACID 500 MG TABLET PO (08:43)
[2020-07-06] MEDS: FERROUS SULFATE 324 MG TABLET PO (08:44)
[2020-07-06] MEDS: SPIRONOLACTONE 25 MG TABLET PO (08:44)
[2020-07-06] MEDS: MULTIVITAMINS THERAPEUTIC TAB (*BKC) 1 TABLET PO (08:44)
[2020-07-06] MEDS: SALINE 0.65% NAS SOLN 44 ML BTL 1 SPRAY NASAL ×2 (08:44→16:27)
[2020-07-06] MEDS: POTASSIUM CHLORIDE 20 MEQ TABLET 40 MEQ PO ×2 (12:38→16:27)
[2020-07-06] MEDS: CYCLOBENZAPRINE HCL 5 MG TABLET PO ×2 (13:49→21:45)
--- NOTE | 2020-07-06 16:31 | PM.IMPN ---
Progress Note: A&P Assessment and Plan (1) CHF (congestive heart failure): Qualifiers: Heart failure chronicity: acute on chronic Heart failure type: diastolic Qualified Code(s): I50.33 - Acute on chronic diastolic (congestive) heart failure Code(s): I50.9 - Heart failure, unspecified Status: Acute Assessment and Plan: may be mild acute on chronic diastolic heart failure . Echocardiogram in January had any EF of 50-55% and repeat 55-60% and no vegetation seen (2) Sepsis: Qualifiers: Sepsis type: sepsis due to unspecified organism Sepsis acute organ dysfunction status: with acute organ dysfunction Severe sepsis acute organ dysfunction type: acute respiratory failure Acute respiratory failure type: with hypercapnia Severe sepsis shock status: without septic shock Qualified Code(s): A41.9 - Sepsis, unspecified organism; R65.20 - Severe sepsis without septic shock; J96.02 - Acute respiratory failure with hypercapnia Code(s): A41.9 - Sepsis, unspecified organism Status: Acute Assessment and Plan: w/ fever, tachycardia, tachypnea. Source of sepsis may be pulmonary vs. urinary but favor urinary since chest x-ray looks fairly clear and just treated for possible pneumonitis with negative swallow study before. cultures staph aureus with no obvious source . TTE no vegetations. Vanc and repeat BC 48-72 hours and ID to see. (3) Abnormal urinalysis: Code(s): R82.90 - Unspecified abnormal findings in urine Status: Acute Assessment and Plan: r/o UTI - Conitinue IV antibiotics. Urine culture growing enterococcus (4) Atrial fibrillation: Qualifiers: Atrial fibrillation type: unspecified chronic Qualified Code(s): I48.20 - Chronic atrial fibrillation, unspecified Code(s): I48.91 - Unspecified atrial fibrillation Status: Chronic Assessment and Plan: Currently rate controlled. Continue diltizem and Eliquis. and low-dose metoprolol (5) Hypertension: Qualifiers: Hypertension type: essential hypertension Qualified Code(s): I10 - Essential (primary) hypertension Code(s): I10 - Essential (primary) hypertension Status: Chronic Assessment and Plan: Monitor blood pressure. continue home antihypertensives. low-dose metoprolol and diltiazem (6) DVT prophylaxis: Code(s): Z29.9 - Encounter for prophylactic measures, unspecified Status: Acute Assessment and Plan: continue Eliquis. Past history of DVT Subjective Date/time seen: 07/06/20 16:31 Interval history: date of visit 07/06. 70-year-old hypertensive white female productive sleep apnea, atrial fibrillation, diastolic heart failure recently diagnosed with respiratory failure and possible pneumonia. She was hypoxic and febrile at the skilled nursing transfer to ER. Here on 2 L increased to 100% . Chest x-ray no definite infiltrates but some congestion and she had pyuria. Met the criteria for sepsis, was culture placed on antibiotics and today + for staph aureus Doing better this a.m. but complains of pain of both legs. has not had her hydrocodone or muscle relaxer. Exam Narrative: Exam Narrative: blood pressure 110/60 pulse is 82 saturating 100% on 1 L nasal cannula afebrile since admission? pupils equal reactive light sclera anicteric mouth normal neck supple lungs decreased breath sounds hear no definite consolidation or or wheezing CV irregular hear no murmur abdomen is soft nontender no masses extremities without edema distal pulses are 2+. minimal movement of lower extremities after T6 spinal fracture in January of this year Objective Data Vital Signs Vital Signs: Vital Signs - 24 hr 07/05/20 18:00 07/05/20 20:00 07/05/20 20:15 Temperature 36.0 C L Pulse Rate 95 92 90 Respiratory Rate 18 18 Blood Pressure 118/62 Pulse Oximetry 99 07/05/20 20:17 07/05/20 20:25 07/05/20 21:22 Temperature
--- NOTE | 2020-07-06 17:05 | PC.NURSE ---
This patient, Trina Larkin, [facility] at 1705. Personal belongings sent with patient. Belongings list checked and signed with receiving RN. Report given to [facility] Marrero. Appropriate documentation sent with patient.
--- NOTE | 2020-07-06 17:21 | PC.NURSE ---
This patient, Trina Larkin, was received from IMU on 07/06/20 at 1721. Personal belongings list checked and signed. Patient/family oriented to unit policies and routines. Report received from [facility]O Silver.
[2020-07-06] MEDS: ATORVASTATIN 10 MG TABLET PO (17:25)
--- NOTE | 2020-07-06 18:05 | PC.NURSE ---
Addendum entered by Troy White RN 07/06/20 18:06: Dressing removed, washed with soap and water, and bandaid applied. No sites of infection present. Will monitor daily. Original Note: Patient received from IMU with gauze dressing and tegaderm to R neck. No previous charting on this admission noted for this site. Patient unaware of when this dressing was initiated but knows it was because of a central line.
[2020-07-06 21:55] LABS: Glucose Point of Care 137 (65-105)
[2020-07-07] VITALS (17 sets, daily range): BP systolic 105–128; BP diastolic 53–73; PULSE 65–100; RESP 20–26; TEMP 36.1–36.6; O2SAT 93–100; BMI 11.0
[2020-07-07] MEDS: ALBUTEROL SULFATE NEB 2.5 MG/0.5 ML INH 5 MG INHALATION ×4 (01:37→19:55)
[2020-07-07 05:44] LABS: Basophils Percent Auto 0.1 % (0.2-1.2); Eosinophils Percent Auto 0.4 % (0-4.4); Hematocrit 24.8 % (37.0-47.0); Hemoglobin 7.5 g/dL (12.0-15.0); Immature Granulocyte Absolute 0.06 K/mm3 (0.00-0.031); Immature Granulocyte Percent A 0.8 % (0-0.5); Lymphocytes Absolute Auto 0.93 K/mm3 (0.9-3.2); Lymphocytes Percent Auto 12.4 % (18.3-44.2); Mean Corpuscular HGB Conc 30.2 g/dl (32-36); Mean Corpuscular Hemoglobin 29.3 pg (26-34); Mean Corpuscular Volume 96.9 fl (80-100); Mean Platelet Volume 9.7 fl (7.4-10.4); Monocytes Absolute Auto 0.9 K/mm3 (0.1-0.6); Monocytes Percent Auto 11.4 % (2.6-8.5); Neutrophils Absolute Auto 5.6 K/mm3 (1.3-6.7); Neutrophils Percent Auto 74.9 % (45.5-73.1); Platelet Count Result 248 k/mm3 (150-375); Red Blood Count 2.56 M/mm3 (4.2-5.4); Red Cell Distribution Width 13.6 % (11.5-14.5); White Blood Count 7.5 K/mm3 (4.5-10.0)
[2020-07-07 06:01] LABS: Anion Gap 7 mmol/L (8-16); Blood Urea Nitrogen 36 mg/dL (7-17); Carbon Dioxide 34 mmol/L (22-30); Chloride 93 mmol/L (98-107); Estimated CRCL calculation 54 ml/min; Estimated Glomerular Filt Rate 55; Glucose 133 mg/dL (65-105); Potassium 4.4 mmol/L (3.4-5.0); Sodium 134 mmol/L (137-145)
[2020-07-07] MEDS: BETAMETHASONE/CLOTRIMAZOLE CR 15 GM TUBE 1 APPLIC TOPICAL ×2 (08:55→16:23)
[2020-07-07] MEDS: APIXABAN 5 MG TABLET PO ×2 (08:55→16:23)
[2020-07-07] MEDS: ASCORBIC ACID 500 MG TABLET PO (08:55)
[2020-07-07] MEDS: FERROUS SULFATE 324 MG TABLET PO (08:55)
[2020-07-07] MEDS: MULTIVITAMINS THERAPEUTIC TAB (*BKC) 1 TABLET PO (08:56)
[2020-07-07] MEDS: METOPROLOL TARTRATE 12.5 MG TABLET PO ×2 (08:56→20:50)
[2020-07-07] MEDS: SALINE 0.65% NAS SOLN 44 ML BTL 1 SPRAY NASAL ×2 (08:56→16:23)
[2020-07-07] MEDS: SPIRONOLACTONE 25 MG TABLET PO (08:56)
[2020-07-07] MEDS: CHOLECALCIFEROL 1,000 UNITS TABLET 1000 UNITS PO (12:14)
[2020-07-07] MEDS: CYCLOBENZAPRINE HCL 5 MG TABLET PO ×2 (13:00→20:52)
--- NOTE | 2020-07-07 14:23 | PC.NURSE ---
Patient to MRI per stretcher.
--- NOTE | 2020-07-07 14:35 | PM.IMPN ---
Progress Note: A&P Assessment and Plan (1) CHF (congestive heart failure): Qualifiers: Heart failure chronicity: acute on chronic Heart failure type: diastolic Qualified Code(s): I50.33 - Acute on chronic diastolic (congestive) heart failure Code(s): I50.9 - Heart failure, unspecified Status: Acute Assessment and Plan: may be mild acute on chronic diastolic heart failure . Echocardiogram in January had any EF of 50-55% and repeat now 55-60% and no vegetation seen. diruretic initially on hold and restart 07/08 (2) Sepsis: Qualifiers: Sepsis type: sepsis due to unspecified organism Sepsis acute organ dysfunction status: with acute organ dysfunction Severe sepsis acute organ dysfunction type: acute respiratory failure Acute respiratory failure type: with hypercapnia Severe sepsis shock status: without septic shock Qualified Code(s): A41.9 - Sepsis, unspecified organism; R65.20 - Severe sepsis without septic shock; J96.02 - Acute respiratory failure with hypercapnia Code(s): A41.9 - Sepsis, unspecified organism Status: Acute Assessment and Plan: w/ fever, tachycardia, tachypnea. Source of sepsis may be pulmonary or even back after previous fracture although no complaints of back pain . negative swallow study before. cultures MS staph aureus with no obvious source . TTE no vegetations. Vanc and repeat am 07/08 repeat cxr . and MR T spine (3) Abnormal urinalysis: Code(s): R82.90 - Unspecified abnormal findings in urine Status: Acute Assessment and Plan: . Urine culture growing enterococcus though doubt is contributing to sepsis. Stop Vanc since is MSSA in blood and get ID opinion. (4) Atrial fibrillation: Qualifiers: Atrial fibrillation type: unspecified chronic Qualified Code(s): I48.20 - Chronic atrial fibrillation, unspecified Code(s): I48.91 - Unspecified atrial fibrillation Status: Chronic Assessment and Plan: Currently rate controlled. Continue diltizem and Eliquis. and low-dose metoprolol (5) Hypertension: Qualifiers: Hypertension type: essential hypertension Qualified Code(s): I10 - Essential (primary) hypertension Code(s): I10 - Essential (primary) hypertension Status: Chronic Assessment and Plan: Monitor blood pressure. continue home antihypertensives. low-dose metoprolol and diltiazem (6) DVT prophylaxis: Code(s): Z29.9 - Encounter for prophylactic measures, unspecified Status: Acute Assessment and Plan: continue Eliquis. Past history of DVT (7) Anemia: Qualifiers: Anemia type: unspecified type Qualified Code(s): D64.9 - Anemia, unspecified Code(s): D64.9 - Anemia, unspecified Status: Acute Assessment and Plan: chronic with no obvious blood loss but will check stool OB with anticoagulation Subjective Date/time seen: 07/07/20 14:35 Interval history: date of visit 07/07. 70-year-old hypertensive white female productive sleep apnea, atrial fibrillation, diastolic heart failure recently diagnosed with respiratory failure and possible pneumonia. She was hypoxic and febrile at the [facility] transfer to ER. Here on 2 L increased to 100% . Chest x-ray no definite infiltrates but some congestion and she had pyuria. Met the criteria for sepsis, was culture placed on antibiotics and BC + for staph aureus MS Doing better this a.m. with no complaints of pain or cough Exam Narrative: Exam Narrative: blood pressure 114/72 pulse is 82 saturating 100% on 1 L nasal cannula afebrile since admission? pupils equal reactive light sclera anicteric mouth normal neck supple lungs decreased breath sounds hear no definite consolidation or or wheezing CV irregular hear no murmur abdomen is soft nontender no masses extremities without edema distal pulses are 2+. minimal movement of lower extremities after T6 spinal f
[2020-07-07] MEDS: OXACILLIN SODIUM 2 GM in SODIUM CHLORIDE 0.9% IV 100 ML IVPB ×3 (15:41→22:32)
--- NOTE | 2020-07-07 15:47 | PC.NURSE ---
Patient return from MRI per stretcher.
[2020-07-07] MEDS: ATORVASTATIN 10 MG TABLET PO (17:11)
[2020-07-08] VITALS (12 sets, daily range): BP systolic 132–151; BP diastolic 74–89; PULSE 79–98; RESP 16–28; TEMP 36.2–36.4; O2SAT 93–100
[2020-07-08] MEDS: OXACILLIN SODIUM 2 GM in SODIUM CHLORIDE 0.9% IV 100 ML IVPB ×6 (01:37→20:20)
[2020-07-08] MEDS: ALBUTEROL SULFATE NEB 2.5 MG/0.5 ML INH 5 MG INHALATION ×4 (02:07→21:12)
[2020-07-08 06:00] LABS: Basophils Percent Auto 0.3 % (0.2-1.2); Eosinophils Absolute Auto 0.2 K/mm3 (0-0.3); Eosinophils Percent Auto 3.8 % (0-4.4); Hematocrit 27.1 % (37.0-47.0); Hemoglobin 7.8 g/dL (12.0-15.0); Immature Granulocyte Absolute 0.08 K/mm3 (0.00-0.031); Immature Granulocyte Percent A 1.3 % (0-0.5); Lymphocytes Absolute Auto 1.13 K/mm3 (0.9-3.2); Lymphocytes Percent Auto 18.4 % (18.3-44.2); Mean Corpuscular HGB Conc 28.8 g/dl (32-36); Mean Corpuscular Hemoglobin 29.5 pg (26-34); Mean Corpuscular Volume 102.7 fl (80-100); Mean Platelet Volume 10.1 fl (7.4-10.4); Monocytes Absolute Auto 0.8 K/mm3 (0.1-0.6); Monocytes Percent Auto 13.7 % (2.6-8.5); Neutrophils Absolute Auto 3.8 K/mm3 (1.3-6.7); Neutrophils Percent Auto 62.5 % (45.5-73.1); Platelet Count Result 213 k/mm3 (150-375); Red Blood Count 2.64 M/mm3 (4.2-5.4); Red Cell Distribution Width 14.1 % (11.5-14.5); White Blood Count 6.1 K/mm3 (4.5-10.0)
[2020-07-08] MEDS: CYCLOBENZAPRINE HCL 5 MG TABLET PO ×2 (06:57→16:36)
[2020-07-08 07:27] LABS: Anion Gap 7 mmol/L (8-16); Blood Urea Nitrogen 28 mg/dL (7-17); Calcium 9.3 mg/dL (8.4-10.2); Carbon Dioxide 34 mmol/L (22-30); Chloride 94 mmol/L (98-107); Estimated CRCL calculation 62 ml/min; Estimated Glomerular Filt Rate > 60; Glucose 85 mg/dL (65-105); Potassium 3.5 mmol/L (3.4-5.0); Sodium 135 mmol/L (137-145)
[2020-07-08] MEDS: METOPROLOL TARTRATE 12.5 MG TABLET PO ×2 (08:35→20:20)
[2020-07-08] MEDS: CHOLECALCIFEROL 1,000 UNITS TABLET 1000 UNITS PO (08:35)
[2020-07-08] MEDS: APIXABAN 5 MG TABLET PO ×2 (08:35→16:37)
[2020-07-08] MEDS: ASCORBIC ACID 500 MG TABLET PO (08:35)
[2020-07-08] MEDS: SALINE 0.65% NAS SOLN 44 ML BTL 1 SPRAY NASAL ×2 (08:36→16:38)
[2020-07-08] MEDS: BETAMETHASONE/CLOTRIMAZOLE CR 15 GM TUBE 1 APPLIC TOPICAL ×2 (08:36→16:37)
[2020-07-08] MEDS: MULTIVITAMINS THERAPEUTIC TAB (*BKC) 1 TABLET PO (08:36)
[2020-07-08] MEDS: FERROUS SULFATE 324 MG TABLET PO (08:36)
[2020-07-08] MEDS: SPIRONOLACTONE 25 MG TABLET PO (08:36)
[2020-07-08] MEDS: FUROSEMIDE 80 MG TABLET PO (13:12)
[2020-07-08] MEDS: POTASSIUM CHLORIDE 20 MEQ TABLET 40 MEQ PO (13:12)
--- NOTE | 2020-07-08 13:59 | PM.IMPN ---
Progress Note: A&P Assessment and Plan (1) CHF (congestive heart failure): Qualifiers: Heart failure chronicity: acute on chronic Heart failure type: diastolic Qualified Code(s): I50.33 - Acute on chronic diastolic (congestive) heart failure Code(s): I50.9 - Heart failure, unspecified Status: Acute Assessment and Plan: may be mild acute on chronic diastolic heart failure . Echocardiogram in January had any EF of 50-55% and repeat now 55-60% and no vegetation seen. continue lasix 80 qd , was initially held on admission (2) Sepsis: Qualifiers: Sepsis type: sepsis due to unspecified organism Sepsis acute organ dysfunction status: with acute organ dysfunction Severe sepsis acute organ dysfunction type: acute respiratory failure Acute respiratory failure type: with hypercapnia Severe sepsis shock status: without septic shock Qualified Code(s): A41.9 - Sepsis, unspecified organism; R65.20 - Severe sepsis without septic shock; J96.02 - Acute respiratory failure with hypercapnia Code(s): A41.9 - Sepsis, unspecified organism Status: Acute Assessment and Plan: w/ fever, tachycardia, tachypnea. Source of sepsis may be pulmonary but probably her back after previous fracture although no complaints of back pain MR though possible discitis or osteo. . negative swallow study before. cultures MS staph aureu. TTE no vegetations. repeat BC so far negative repeat cxr no change ID to see also (3) Abnormal urinalysis: Code(s): R82.90 - Unspecified abnormal findings in urine Status: Acute Assessment and Plan: . Urine culture growing enterococcus though doubt is contributing to sepsis. Stop Vanc since is MSSA in blood and get ID opinion. (4) Atrial fibrillation: Qualifiers: Atrial fibrillation type: unspecified chronic Qualified Code(s): I48.20 - Chronic atrial fibrillation, unspecified Code(s): I48.91 - Unspecified atrial fibrillation Status: Chronic Assessment and Plan: Currently rate controlled. Continue diltizem and Eliquis. and low-dose metoprolol (5) Hypertension: Qualifiers: Hypertension type: essential hypertension Qualified Code(s): I10 - Essential (primary) hypertension Code(s): I10 - Essential (primary) hypertension Status: Chronic Assessment and Plan: Monitor blood pressure. continue home antihypertensives. low-dose metoprolol and diltiazem (6) DVT prophylaxis: Code(s): Z29.9 - Encounter for prophylactic measures, unspecified Status: Acute Assessment and Plan: continue Eliquis. Past history of DVT (7) Anemia: Qualifiers: Anemia type: unspecified type Qualified Code(s): D64.9 - Anemia, unspecified Code(s): D64.9 - Anemia, unspecified Status: Acute Assessment and Plan: chronic with no obvious blood loss but will check stool OB with anticoagulation hgb stable 7.8 (8) Closed T6 spinal fracture: Qualifiers: Encounter type: subsequent encounter Fracture morphology: unspecified fracture morphology Fracture healing: with routine healing Qualified Code(s): S22.059D - Unspecified fracture of T5-T6 vertebra, subsequent encounter for fracture with routine healing Code(s): S22.059A - Unspecified fracture of T5-T6 vertebra, initial encounter for closed fracture Status: Acute Assessment and Plan: occurred with accident with fall in January. Patient received 6 weeks of antibiotics from [facility] for possible infection and now MR shows possible diskitis or osteo. With positive blood cultures for MSSA continue IV antibiotics and await repeat cultures and ID opinion Subjective Date/time seen: 07/08/20 13:59 Interval history: date of visit 07/08. 70-year-old hypertensive white female productive sleep apnea, atrial fibrillation, diastolic heart failure recently diagnosed with respiratory failure and possible pne
[2020-07-08] MEDS: ATORVASTATIN 10 MG TABLET PO (16:38)
[2020-07-08 23:20] LABS: IFOB Positive Control Positive; Immunochemical Fecal Occult Bl Negative (N)
[2020-07-09] VITALS (15 sets, daily range): BP systolic 117–138; BP diastolic 64–76; PULSE 73–101; RESP 18–26; TEMP 36.3–36.8; O2SAT 93–100
[2020-07-09] MEDS: OXACILLIN SODIUM 2 GM in SODIUM CHLORIDE 0.9% IV 100 ML IVPB ×4 (00:10→13:33)
[2020-07-09] MEDS: CYCLOBENZAPRINE HCL 5 MG TABLET PO ×3 (00:10→22:51)
[2020-07-09] MEDS: ALBUTEROL SULFATE NEB 2.5 MG/0.5 ML INH 5 MG INHALATION ×4 (02:05→20:14)
[2020-07-09 05:55] LABS: Basophils Percent Auto 0.1 % (0.2-1.2); Eosinophils Absolute Auto 0.3 K/mm3 (0-0.3); Eosinophils Percent Auto 3.8 % (0-4.4); Hematocrit 27.6 % (37.0-47.0); Hemoglobin 8.3 g/dL (12.0-15.0); Immature Granulocyte Absolute 0.07 K/mm3 (0.00-0.031); Lymphocytes Absolute Auto 1.36 K/mm3 (0.9-3.2); Lymphocytes Percent Auto 19.7 % (18.3-44.2); Mean Corpuscular HGB Conc 30.1 g/dl (32-36); Mean Corpuscular Hemoglobin 29.3 pg (26-34); Mean Corpuscular Volume 97.5 fl (80-100); Mean Platelet Volume 9.1 fl (7.4-10.4); Monocytes Absolute Auto 0.8 K/mm3 (0.1-0.6); Monocytes Percent Auto 11.8 % (2.6-8.5); Neutrophils Absolute Auto 4.4 K/mm3 (1.3-6.7); Neutrophils Percent Auto 63.6 % (45.5-73.1); Platelet Count Result 251 k/mm3 (150-375); Red Blood Count 2.83 M/mm3 (4.2-5.4); Red Cell Distribution Width 13.9 % (11.5-14.5); White Blood Count 6.9 K/mm3 (4.5-10.0)
[2020-07-09 06:06] LABS: Anion Gap 8 mmol/L (8-16); Blood Urea Nitrogen 23 mg/dL (7-17); Calcium 8.9 mg/dL (8.4-10.2); Carbon Dioxide 35 mmol/L (22-30); Chloride 94 mmol/L (98-107); Estimated CRCL calculation 79 ml/min; Estimated Glomerular Filt Rate > 60; Glucose 121 mg/dL (65-105); Potassium 3.4 mmol/L (3.4-5.0); Sodium 137 mmol/L (137-145)
[2020-07-09] MEDS: CHOLECALCIFEROL 1,000 UNITS TABLET 1000 UNITS PO (08:52)
[2020-07-09] MEDS: ASCORBIC ACID 500 MG TABLET PO (08:52)
[2020-07-09] MEDS: METOPROLOL TARTRATE 12.5 MG TABLET PO ×2 (08:52→21:11)
[2020-07-09] MEDS: APIXABAN 5 MG TABLET PO ×2 (08:52→17:46)
[2020-07-09] MEDS: SPIRONOLACTONE 25 MG TABLET PO (08:52)
[2020-07-09] MEDS: FERROUS SULFATE 324 MG TABLET PO (08:52)
[2020-07-09] MEDS: FUROSEMIDE 80 MG TABLET PO (08:52)
[2020-07-09] MEDS: SALINE 0.65% NAS SOLN 44 ML BTL 1 SPRAY NASAL ×2 (08:53→17:47)
[2020-07-09] MEDS: MULTIVITAMINS THERAPEUTIC TAB (*BKC) 1 TABLET PO (08:53)
[2020-07-09] MEDS: BETAMETHASONE/CLOTRIMAZOLE CR 15 GM TUBE 1 APPLIC TOPICAL ×2 (08:53→17:46)
--- NOTE | 2020-07-09 12:09 | WPDINFPN2 ---
Progress Note: A&P Assessment and Plan (1) Bacteremia due to methicillin susceptible Staphylococcus aureus (MSSA): Code(s): R78.81 - Bacteremia; B95.61 - Methicillin susceptible Staphylococcus aureus infection as the cause of diseases classified elsewhere Status: Acute Assessment and Plan: Relapsed MERCEDES bacteremia, with infection at T spine discs REC (antibiotic #4) Oxacillin # 3 / 27 days as long as repeat BCs sterilize. Then indefinite oral suppression Subjective Date/time seen: 07/09/20 12:09 Objective Data Vital Signs Vital Signs: Vital Signs - 24 hr 07/08/20 13:10 07/08/20 13:18 07/08/20 14:00 Temperature 36.4 C Pulse Rate 98 98 80 Respiratory Rate 20 20 23 H Blood Pressure 132/74 Pulse Oximetry 93 07/08/20 20:20 07/08/20 21:15 07/08/20 21:16 Temperature Pulse Rate 86 91 86 Respiratory Rate 28 H 22 H Blood Pressure Pulse Oximetry 98 97 07/08/20 22:00 07/09/20 02:02 07/09/20 02:05 Temperature 36.2 C L Pulse Rate 80 86 86 Respiratory Rate 16 20 19 Blood Pressure 151/82 H Pulse Oximetry 93 97 07/09/20 02:14 07/09/20 05:34 07/09/20 07:40 Temperature 36.3 C L Pulse Rate 73 73 Respiratory Rate 21 H 20 Blood Pressure 117/76 Pulse Oximetry 97 93 07/09/20 07:45 07/09/20 07:54 Temperature Pulse Rate 83 90 Respiratory Rate 20 20 Blood Pressure Pulse Oximetry Intake/Output Intake/Output: Intake & Output 07/06/20 07/07/20 07/08/20 07/09/20 23:59 23:59 23:59 23:59 Intake Total 2420 2290 1705 1060 Output Total 550 550 660 100 Balance 1870 1740 1045 960 Meds/Results Medications: Active Medications Generic Name Dose Route Start Last Admin Trade Name Freq PRN Reason Stop Dose Admin Hydrocodone Bitart/Acetaminophen 1 tab 07/08/20 14:07 07/09/20 08:50 Jal 10-325 Mg PO 1 tab Q4H PRN Administration Pain Albuterol 5 mg 07/05/20 20:00 07/09/20 07:38 Albuterol Sulf Neb 2.5mg/0.5ml INHALATION 5 mg Q6HRT DEWAYNE Administration Apixaban 5 mg 07/05/20 09:00 07/09/20 08:52 Eliquis PO 5 mg BID DEWAYNE Administration Ascorbic Acid 500 mg 07/05/20 09:00 07/09/20 08:52 Vitamin C PO 500 mg DAILY DEWAYNE Administration Atorvastatin Calcium 10 mg 07/05/20 18:00 07/08/20 16:38 Lipitor PO 10 mg QPM DEWAYNE Administration Clotrimazole 1 applic 07/05/20 09:00 07/09/20 08:53 Lotrisone Cream TOPICAL 1 applic BID DEWAYNE Administration Cyclobenzaprine HCl 5 mg 07/06/20 13:13 07/09/20 08:51 Flexeril PO 5 mg Q8H PRN Administration Muscle Spasm Diltiazem HCl 120 mg 07/05/20 09:00 07/09/20 08:52 Cardizem Cd PO 120 mg QAM DEWAYNE Administration Ferrous Sulfate 324 mg 07/05/20 09:00 07/09/20 08:52 Ferrous Sulfate PO 324 mg DAILY DEWAYNE Administration Furosemide 80 mg 07/08/20 11:30 07/09/20 08:52 Lasix Tablet PO 80 mg DAILY DEWAYNE Administration Oxacillin Sodium 2 gm/ Sodium 100 mls @ 200 mls/hr 07/07/20 13:00 07/09/20 09:21 Chloride IVPB Infused Q4HR DEWAYNE Infusion Metoprolol Tartrate 12.5 mg 07/05/20 09:00 07/09/20 08:52 Lopressor PO 12.5 mg Q12HR DEWAYNE Administration Multivitamins Therapeutic 1 tablet 07/05/20 09:00 07/09/20 08:53 Multivitamins Therapeutic(*Bkc PO 1 tablet DAILY DEWAYNE Administration Sodium Chloride 1 spray 07/05/20 09:00 07/09/20 08:53 [place] Nasal [place] NASAL 1 spray BID DEWAYNE Administration Spironolactone 25 mg 07/05/20 09:00 07/09/20 08:52 Aldactone PO 25 mg DAILY DEWAYNE Administration Tiotropium [place] 1 cap 07/05/20 09:00 07/09/20 07:38 Spiriva INHALATION 1 cap QAM DEWAYNE Administration Vitamin D 1,000 units 07/05/20 09:00 07/09/20 08:52 Vitamin D PO 1,000 units DAILY DEWAYNE Administration Radiology Results: ITS Impressions Chest X-Ray 07/07/20 14:13 IMPRESSION: 1. Stable airspace opacities in the mid and lower lung zones, consistent with atelectasis versus p
--- NOTE | 2020-07-09 16:31 | PM.IMPN ---
Progress Note: A&P Assessment and Plan (1) CHF (congestive heart failure): Qualifiers: Heart failure chronicity: acute on chronic Heart failure type: diastolic Qualified Code(s): I50.33 - Acute on chronic diastolic (congestive) heart failure Code(s): I50.9 - Heart failure, unspecified Status: Acute Assessment and Plan: Mild acute on chronic diastolic heart failure . Echocardiogram in January had any EF of 50-55% and repeat now 55-60% and no vegetation seen by TTE. continue lasix 80 qd , was initially held on admission (2) Sepsis: Qualifiers: Acute respiratory failure type: with hypercapnia Sepsis acute organ dysfunction status: with acute organ dysfunction Sepsis type: sepsis due to unspecified organism Severe sepsis acute organ dysfunction type: acute respiratory failure Severe sepsis shock status: without septic shock Qualified Code(s): A41.9 - Sepsis, unspecified organism; R65.20 - Severe sepsis without septic shock; J96.02 - Acute respiratory failure with hypercapnia Code(s): A41.9 - Sepsis, unspecified organism Status: Acute Assessment and Plan: w/ fever, tachycardia, tachypnea. Source of sepsis may be pulmonary but probably diskitis/osteo. negative swallow study before. Bld cultures 07/04 positive MSSA. TTE no vegetations. repeat BC 07/08 so far negative. ID following and abx changed. Okay for discharge if BCx remain negative. (3) Abnormal urinalysis: Code(s): R82.90 - Unspecified abnormal findings in urine Status: Acute Assessment and Plan: Urine culture growing enterococcus though doubt this contributing to sepsis. Vanco stopped since is MSSA in blood. Treated with Vanco from 07/06-. ID following (4) Atrial fibrillation: Qualifiers: Atrial fibrillation type: unspecified chronic Qualified Code(s): I48.20 - Chronic atrial fibrillation, unspecified Code(s): I48.91 - Unspecified atrial fibrillation Status: Chronic Assessment and Plan: Currently rate controlled. Continue diltizem and low-dose metoprolol. Continue Eliquis (5) Hypertension: Qualifiers: Hypertension type: essential hypertension Qualified Code(s): I10 - Essential (primary) hypertension Code(s): I10 - Essential (primary) hypertension Status: Chronic Assessment and Plan: Patient's blood pressure was reviewed on 07/09/20 Blood pressure remains well controlled. Will continue current medications with metoprolol and diltiazem (6) Anemia: Qualifiers: Anemia type: unspecified type Qualified Code(s): D64.9 - Anemia, unspecified Code(s): D64.9 - Anemia, unspecified Status: Acute Assessment and Plan: chronic with no obvious blood loss. suspect related to chronic inflammatory process. hgb stable 7-8 Range. Continue to monitor. (7) Closed T6 spinal fracture: Qualifiers: Encounter type: subsequent encounter Fracture healing: with routine healing Fracture morphology: unspecified fracture morphology Qualified Code(s): S22.059D - Unspecified fracture of T5-T6 vertebra, subsequent encounter for fracture with routine healing Code(s): S22.059A - Unspecified fracture of T5-T6 vertebra, initial encounter for closed fracture Status: Acute Assessment and Plan: occurred with accident with fall in January. Patient received 6 weeks of antibiotics from [facility] for possible infection and now MR shows possible diskitis or osteo. With positive blood cultures for MSSA. continue IV antibiotics and await repeat cultures. (8) DVT prophylaxis: Code(s): Z29.9 - Encounter for prophylactic measures, unspecified Status: Acute Assessment and Plan: continue Eliquis. Past history of DVT Subjective Date/time seen: 07/09/20 16:31 Interval history: date of visit 07/09. 70-year-old female with YESENIA, atrial fibrillation, diastol
[2020-07-09] MEDS: ceFAZolin 2 GM/D5W 50 ML 2 GM/50 ML BAG IVPB ×2 (16:48→21:11)
[2020-07-09] MEDS: ATORVASTATIN 10 MG TABLET PO (17:46)
[2020-07-10] VITALS (18 sets, daily range): BP systolic 113–115; BP diastolic 61–83; PULSE 64–89; RESP 12–26; TEMP 36.3–36.7; O2SAT 95–100
[2020-07-10] MEDS: ALBUTEROL SULFATE NEB 2.5 MG/0.5 ML INH 5 MG INHALATION ×5 (02:07→20:01)
[2020-07-10] MEDS: ceFAZolin 2 GM/D5W 50 ML 2 GM/50 ML BAG IVPB ×3 (05:10→21:01)
--- NOTE | 2020-07-10 06:15 | CONS_ITS ---
DATE OF CONSULTATION: 07/09/2020 REASON FOR CONSULTATION: Bacteremia. HISTORY OF PRESENT ILLNESS: The patient is a 70-year-old female, known to me from this past spring when she had Staph aureus bacteremia believed to be due to right lower extremity cutaneous source. After several days here, she was transferred to [facility] when she developed spinal cord compromise in the thoracic area. She underwent no operative intervention, however. She was seen by my colleagues at [facility] and sent to her long-term with plans for 6 weeks of IV antibiotics. At the time she left here, she was on cefazolin. Her IV was removed on schedule in approximately mid April. Her long-term record indicates no recent antibiotics for any purpose. She was here in late May with congestive heart failure for several days and transferred once again back to her long-term. She returned here on July 04 with oxygen desaturation, electrolyte abnormalities, she was febrile shortly after arrival. She was started on vancomycin and oxacillin was added on the . Consultation now requested. The patient had no pre-existing fever, chills, or sweats that she is aware of. Her dyspnea has not been persistent. No chest pain or abdominal pain. No skin rashes. She has noted a small area of skin breakdown over her sacrum, but no pain or drainage. ALLERGIES: LEVOFLOXACIN CAUSED RASH. OTHERS NOT PERTINENT. PRESENT MEDICATIONS: No systemic immunosuppressants. PAST MEDICAL HISTORY: AF, previous heart failure, DVT, hypertension, left humerus fracture, morbid obesity, burst fractures in thoracic spine, appendectomy, hernia repair. FAMILY HISTORY: Hypertension, diabetes, heart disease. HABITS: Ex-smoker. No alcohol. Social history , has children. She has been at her long-term due to decreased mobility in that she is dependent upon staff for transfers and ambulation. REVIEW OF SYSTEMS: 14-point review otherwise negative. PHYSICAL EXAMINATION: GENERAL: This is a middle-aged female who appears older than her actual age. No respiratory distress. On supplemental O2. T-max shortly after arrival of 39.7. In the last 4 days, she has been afebrile. SKIN: Warm and dry. No rashes. Some ecchymoses consistent with phlebotomy. NODES: No cervical adenopathy. EENT: The conjunctivae are normal. Pupils equal, round, and reactive to light. The oropharynx, oral mucosa normal. NECK: No masses or thyromegaly. No meningismus. LUNGS: Clear to auscultation and percussion. CHEST: Equal expansion. Normal AP diameter. No indwelling vascular devices. CARDIAC: Soft S1, S2. 90, 20, 93% on 1 L. Peripheral pulses 1+. ABDOMEN: Morbidly obese. No tenderness, masses, distention. EXTREMITIES: 2+ nonpitting edema both distal legs. She has stasis dermatitis on the right. No active cellulitis findings. LABORATORY DATA: Urine culture with Enterococcus. Blood cultures, July 04, 12/24 sets, MERCEDES, HOLLI equal 1. Repeat blood cultures performed yesterday and are no growth after short incubation. Her white blood cell count consistently normal. Hemoglobin 8.3, platelets are 251. She has a mild left shift. Blood gases 7.38, 60, 88, 35 on the noted positive-pressure ventilation. She had hyponatremia, now resolved. CO2 is 35 on the chemistry panel, BUN 23, creatinine 0.7, glucose 121, down from 269. Her liver function tests not repeated. Her CRP is 26. Urinalysis, multiple abnormalities, which are reviewed. Vancomycin trough 28. A repeat COVID assay was nonreactive. RADIOLOGY: Transthoracic echocardiogram shows no evidence of infection. Chest x-ray with increased interstitial markings. Thoracic spine MRI shows burst fractures, abnormal signal intensity at T5-T6 and T6-T7. She also wolff
[2020-07-10] MEDS: FERROUS SULFATE 324 MG TABLET PO (08:20)
[2020-07-10] MEDS: MULTIVITAMINS THERAPEUTIC TAB (*BKC) 1 TABLET PO (08:20)
[2020-07-10] MEDS: APIXABAN 5 MG TABLET PO ×2 (08:20→16:58)
[2020-07-10] MEDS: ASCORBIC ACID 500 MG TABLET PO (08:21)
[2020-07-10] MEDS: SPIRONOLACTONE 25 MG TABLET PO (08:21)
[2020-07-10] MEDS: SALINE 0.65% NAS SOLN 44 ML BTL 1 SPRAY NASAL ×2 (08:21→16:59)
[2020-07-10] MEDS: FUROSEMIDE 80 MG TABLET PO (08:21)
[2020-07-10] MEDS: METOPROLOL TARTRATE 12.5 MG TABLET PO ×2 (08:21→20:58)
[2020-07-10] MEDS: BETAMETHASONE/CLOTRIMAZOLE CR 15 GM TUBE 1 APPLIC TOPICAL ×2 (08:21→16:58)
[2020-07-10] MEDS: CHOLECALCIFEROL 1,000 UNITS TABLET 1000 UNITS PO (08:21)
[2020-07-10] MEDS: CYCLOBENZAPRINE HCL 5 MG TABLET PO ×2 (08:25→16:56)
--- NOTE | 2020-07-10 10:32 | WPDINFPN2 ---
Progress Note: A&P Assessment and Plan (1) Bacteremia due to methicillin susceptible Staphylococcus aureus (MSSA): Code(s): R78.81 - Bacteremia; B95.61 - Methicillin susceptible Staphylococcus aureus infection as the cause of diseases classified elsewhere Status: Acute Assessment and Plan: 1. Relapsed MERCEDES bacteremia, with infection at T spine discs 2. Thoracic spine burst fractures 3. Antibiotic associated loose BMs, low suspicion for C diff REC (antibiotic #5) Ancef #, through 08/02. Changed from oxacillin due to abilities of her SNF, not due to any other reason. Await further BCs. Then indefinite oral suppression. Loperamide and probiotic Subjective Date/time seen: 07/10/20 10:33 Interval history: loose BMs x 4 yesterday, 1 so far today Exam Narrative: Exam Narrative: afebrile Const: General: no acute distress Resp: Effort & Inspection: normal respiratory effort Auscultation: clear to auscultation bilaterally Cardio: Rate: regular rate Rhythm: regular rhythm Heart sounds: no murmurs GI: Inspection: non-distended GI Palp: Yes Soft to palpation and No Tenderness to palpation present (GI) Objective Data Vital Signs Vital Signs: Vital Signs - 24 hr 07/09/20 14:00 07/09/20 14:19 07/09/20 14:28 Temperature 36.4 C Pulse Rate 94 88 84 Respiratory Rate 18 20 20 Blood Pressure 117/64 Pulse Oximetry 100 07/09/20 20:17 07/09/20 20:22 07/09/20 21:11 Temperature Pulse Rate 101 H 97 86 Respiratory Rate 20 20 Blood Pressure Pulse Oximetry 100 07/09/20 22:00 07/09/20 23:00 07/10/20 02:07 Temperature 36.8 C Pulse Rate 101 H 87 70 Respiratory Rate 20 26 H 22 H Blood Pressure 138/70 Pulse Oximetry 100 97 95 07/10/20 02:12 07/10/20 06:00 07/10/20 07:32 Temperature 36.3 C L Pulse Rate 64 83 78 Respiratory Rate 26 H 20 22 H Blood Pressure 115/61 Pulse Oximetry 100 07/10/20 07:35 07/10/20 07:45 07/10/20 08:21 Temperature Pulse Rate 78 78 76 Respiratory Rate 20 20 Blood Pressure Pulse Oximetry 100 07/10/20 10:31 Temperature Pulse Rate 82 Respiratory Rate 20 Blood Pressure Pulse Oximetry Intake/Output Intake/Output: Intake & Output 07/07/20 07/08/20 07/09/20 07/10/20 23:59 23:59 23:59 23:59 Intake Total 2290 1705 2490 350 Output Total 550 660 550 Balance 1740 1045 1940 350 Meds/Results Medications: Active Medications Generic Name Dose Route Start Last Admin Trade Name Freq PRN Reason Stop Dose Admin Hydrocodone Bitart/Acetaminophen 1 tab 07/08/20 14:07 07/10/20 08:24 [place] 10-325 Mg PO 1 tab Q4H PRN Administration Pain Albuterol 5 mg 07/05/20 20:00 07/10/20 07:31 Albuterol Sulf Neb 2.5mg/0.5ml INHALATION 5 mg Q6HRT DEWAYNE Administration Apixaban 5 mg 07/05/20 09:00 07/10/20 08:20 Eliquis PO 5 mg BID DEWAYNE Administration Ascorbic Acid 500 mg 07/05/20 09:00 07/10/20 08:21 Vitamin C PO 500 mg DAILY DEWAYNE Administration Atorvastatin Calcium 10 mg 07/05/20 18:00 07/09/20 17:46 Lipitor PO 10 mg QPM DEWAYNE Administration Clotrimazole 1 applic 07/05/20 09:00 07/10/20 08:21 Lotrisone Cream TOPICAL 1 applic BID DEWAYNE Administration Cyclobenzaprine HCl 5 mg 07/06/20 13:13 07/10/20 08:25 Flexeril PO 5 mg Q8H PRN Administration Muscle Spasm Diltiazem HCl 120 mg 07/05/20 09:00 07/10/20 08:21 Cardizem Cd PO 120 mg QAM DEWAYNE Administration Ferrous Sulfate 324 mg 07/05/20 09:00 07/10/20 08:20 Ferrous Sulfate PO 324 mg DAILY DEWAYNE Administration Furosemide 80 mg 07/08/20 11:30 07/10/20 08:21 Lasix Tablet PO 80 mg DAILY DEWAYNE Administration Cefazolin Sodium 2 gm in 50 mls @ 100 mls/hr 07/09/20 14:15 07/10/20 05:40 Ancef 2 Gm/D5w 50 Ml IVPB Infused Q8HR DEWAYNE Infusion Metoprolol Tartrate 12.5 mg 07/05/20 09:00 07/10/20 08:21 Lopressor PO 12.5 mg Q12HR DEWAYNE Administration Multivitamins Therapeut
--- NOTE | 2020-07-10 11:02 | PM.IMPN ---
Progress Note: A&P Assessment and Plan (1) CHF (congestive heart failure): Qualifiers: Heart failure chronicity: acute on chronic Heart failure type: diastolic Qualified Code(s): I50.33 - Acute on chronic diastolic (congestive) heart failure Code(s): I50.9 - Heart failure, unspecified Status: Acute Assessment and Plan: Mild acute on chronic diastolic heart failure . Echocardiogram in January had any EF of 50-55% and repeat now 55-60% and no vegetation seen by TTE. continue lasix 80 qd , was initially held on admission (2) Sepsis: Qualifiers: Acute respiratory failure type: with hypercapnia Sepsis acute organ dysfunction status: with acute organ dysfunction Sepsis type: sepsis due to unspecified organism Severe sepsis acute organ dysfunction type: acute respiratory failure Severe sepsis shock status: without septic shock Qualified Code(s): A41.9 - Sepsis, unspecified organism; R65.20 - Severe sepsis without septic shock; J96.02 - Acute respiratory failure with hypercapnia Code(s): A41.9 - Sepsis, unspecified organism Status: Acute Assessment and Plan: w/ fever, tachycardia, tachypnea. Source of sepsis may be pulmonary but probably diskitis/osteo. Has had a negative swallow study before. Bld cultures 07/04 positive MSSA. TTE no vegetations. Repeat BC 07/08 NGTDe. ID following and abx changed. Okay for discharge if BCx remain negative. COVID test required so this was added. (3) Abnormal urinalysis: Code(s): R82.90 - Unspecified abnormal findings in urine Status: Acute Assessment and Plan: Urine culture growing enterococcus though doubt this contributing to sepsis. Vanco stopped since is MSSA in blood. Treated with Vanco from 07/06-. ID following. (4) Atrial fibrillation: Qualifiers: Atrial fibrillation type: unspecified chronic Qualified Code(s): I48.20 - Chronic atrial fibrillation, unspecified Code(s): I48.91 - Unspecified atrial fibrillation Status: Chronic Assessment and Plan: Currently rate controlled. Continue diltizem and low-dose metoprolol. Continue Eliquis (5) Hypertension: Qualifiers: Hypertension type: essential hypertension Qualified Code(s): I10 - Essential (primary) hypertension Code(s): I10 - Essential (primary) hypertension Status: Chronic Assessment and Plan: Patient's blood pressure was reviewed on 07/10 Blood pressure remains well controlled. Will continue current medications with metoprolol and diltiazem (6) Anemia: Qualifiers: Anemia type: unspecified type Qualified Code(s): D64.9 - Anemia, unspecified Code(s): D64.9 - Anemia, unspecified Status: Acute Assessment and Plan: chronic with no obvious blood loss. suspect related to chronic inflammatory process. hgb stable 7-8 Range. Continue to monitor periodically. (7) Closed T6 spinal fracture: Qualifiers: Encounter type: subsequent encounter Fracture healing: with routine healing Fracture morphology: unspecified fracture morphology Qualified Code(s): S22.059D - Unspecified fracture of T5-T6 vertebra, subsequent encounter for fracture with routine healing Code(s): S22.059A - Unspecified fracture of T5-T6 vertebra, initial encounter for closed fracture Status: Acute Assessment and Plan: Fracture occurred with accident from a fall in January. Patient received 6 weeks of antibiotics from [facility] for possible infection and now MR shows possible diskitis or osteo. With positive blood cultures for MSSA. continue IV antibiotics and await repeat cultures. (8) DVT prophylaxis: Code(s): Z29.9 - Encounter for prophylactic measures, unspecified Status: Acute Assessment and Plan: continue Eliquis. Past history of DVT (9) Wheezing: Code(s): R06.2 - Wheezing Status: Acute Asses
[2020-07-10] MEDS: SACCHAROMYCES BOULARDII 250 MG CAPSULE PO (16:58)
[2020-07-10] MEDS: LOPERAMIDE HCL 2 MG CAPSULE PO (17:01)
[2020-07-10] MEDS: ATORVASTATIN 10 MG TABLET PO (17:01)
[2020-07-10 22:15] LABS: SARS-CoV-2 RNA PCR Negative
[2020-07-11] VITALS (16 sets, daily range): BP systolic 108–130; BP diastolic 65–88; PULSE 80–92; RESP 12–26; TEMP 36.6–37; O2SAT 97–100
[2020-07-11] MEDS: ALBUTEROL SULFATE NEB 2.5 MG/0.5 ML INH 5 MG INHALATION ×4 (03:14→20:08)
[2020-07-11] MEDS: ceFAZolin 2 GM/D5W 50 ML 2 GM/50 ML BAG IVPB ×3 (06:34→20:01)
[2020-07-11] MEDS: METOPROLOL TARTRATE 12.5 MG TABLET PO ×2 (08:30→20:02)
[2020-07-11] MEDS: SACCHAROMYCES BOULARDII 250 MG CAPSULE PO (08:30)
[2020-07-11] MEDS: SPIRONOLACTONE 25 MG TABLET PO (08:30)
[2020-07-11] MEDS: MULTIVITAMINS THERAPEUTIC TAB (*BKC) 1 TABLET PO (08:30)
[2020-07-11] MEDS: CHOLECALCIFEROL 1,000 UNITS TABLET 1000 UNITS PO (08:30)
[2020-07-11] MEDS: FUROSEMIDE 80 MG TABLET PO (08:30)
[2020-07-11] MEDS: ASCORBIC ACID 500 MG TABLET PO (08:30)
[2020-07-11] MEDS: FERROUS SULFATE 324 MG TABLET PO (08:31)
[2020-07-11] MEDS: BETAMETHASONE/CLOTRIMAZOLE CR 15 GM TUBE 1 APPLIC TOPICAL ×2 (08:31→18:27)
[2020-07-11] MEDS: SALINE 0.65% NAS SOLN 44 ML BTL 1 SPRAY NASAL ×2 (08:31→18:27)
[2020-07-11] MEDS: APIXABAN 5 MG TABLET PO (08:31)
[2020-07-11] MEDS: CYCLOBENZAPRINE HCL 5 MG TABLET PO (08:38)
--- NOTE | 2020-07-11 11:19 | PCDIET ---
Weekly nutritional screen. Patient is tolerating current diet, 4gm Na which is appropriate, with adequate intake (90-100% of last four meals). No weight loss reported. BMI 48.5. No nutritional needs at this time.
--- NOTE | 2020-07-11 13:17 | WPDINFPN2 ---
Progress Note: A&P Assessment and Plan (1) Bacteremia due to methicillin susceptible Staphylococcus aureus (MSSA): Code(s): R78.81 - Bacteremia; B95.61 - Methicillin susceptible Staphylococcus aureus infection as the cause of diseases classified elsewhere Status: Acute Assessment and Plan: 1. Relapsed MERCEDES bacteremia, with infection at T spine discs. Repeat BCs ng 3 days 2. Thoracic spine burst fractures 3. Antibiotic associated loose BMs, low suspicion for C diff REC (antibiotic #6) Ancef #, through 08/02. Changed from oxacillin due to abilities of her SNF, not due to any other reason. Await further BCs. Then indefinite oral suppression using cephalexin 1,000 mg po bid.. Loperamide and probiotic. Ok PICC and discharge planning, will see prn Subjective Date/time seen: 07/11/20 13:17 Interval history: pain under control Exam Narrative: Exam Narrative: afebrile Const: General: no acute distress Eyes: General: appearance normal, both eyes and all related structures Resp: Effort & Inspection: normal respiratory effort Auscultation: clear to auscultation bilaterally Cardio: Rate: regular rate Rhythm: regular rhythm Heart sounds: no murmurs GI: Inspection: non-distended GI Palp: Yes Soft to palpation and No Tenderness to palpation present (GI) Skin: General skin exam: no rashes or lesions noted Objective Data Vital Signs Vital Signs: Vital Signs - 24 hr 07/10/20 13:24 07/10/20 14:00 07/10/20 20:02 Temperature 36.6 C Pulse Rate 80 74 86 Respiratory Rate 20 20 20 Blood Pressure 113/83 Pulse Oximetry 98 07/10/20 20:03 07/10/20 20:12 07/10/20 20:58 Temperature Pulse Rate 89 86 Respiratory Rate 20 Blood Pressure Pulse Oximetry 98 07/10/20 22:00 07/10/20 23:28 07/11/20 03:17 Temperature 36.7 C Pulse Rate 76 79 88 Respiratory Rate 12 24 H 26 H Blood Pressure 113/74 Pulse Oximetry 100 98 97 07/11/20 03:27 07/11/20 06:00 07/11/20 08:40 Temperature 36.6 C Pulse Rate 92 85 92 Respiratory Rate 26 H 12 Blood Pressure 108/80 121/65 Pulse Oximetry 100 07/11/20 08:55 07/11/20 08:59 Temperature Pulse Rate 87 Respiratory Rate 22 H Blood Pressure Pulse Oximetry 98 Intake/Output Intake/Output: Intake & Output 07/08/20 07/09/20 07/10/20 07/11/20 23:59 23:59 23:59 23:59 Intake Total 1705 2490 1570 810 Output Total 660 550 Balance 1045 1940 1570 810 Meds/Results Medications: Active Medications Generic Name Dose Route Start Last Admin Trade Name Freq PRN Reason Stop Dose Admin Hydrocodone Bitart/Acetaminophen 1 tab 07/08/20 14:07 07/11/20 08:37 Supai 10-325 Mg PO 1 tab Q4H PRN Administration Pain Albuterol 5 mg 07/05/20 20:00 07/11/20 08:58 Albuterol Sulf Neb 2.5mg/0.5ml INHALATION 5 mg Q6HRT DEWAYNE Administration Apixaban 5 mg 07/05/20 09:00 07/11/20 08:31 Eliquis PO 5 mg BID DEWAYNE Administration Ascorbic Acid 500 mg 07/05/20 09:00 07/11/20 08:30 Vitamin C PO 500 mg DAILY DEWAYNE Administration Atorvastatin Calcium 10 mg 07/05/20 18:00 07/10/20 17:01 Lipitor PO 10 mg QPM DEWAYNE Administration Clotrimazole 1 applic 07/05/20 09:00 07/11/20 08:31 Lotrisone Cream TOPICAL 1 applic BID DEWAYNE Administration Cyclobenzaprine HCl 5 mg 07/06/20 13:13 07/11/20 08:38 Flexeril PO 5 mg Q8H PRN Administration Muscle Spasm Diltiazem HCl 120 mg 07/05/20 09:00 07/11/20 08:31 Cardizem Cd PO 120 mg QAM DEWAYNE Administration Ferrous Sulfate 324 mg 07/05/20 09:00 07/11/20 08:31 Ferrous Sulfate PO 324 mg DAILY DEWAYNE Administration Furosemide 80 mg 07/08/20 11:30 07/11/20 08:30 Lasix Tablet PO 80 mg DAILY DEWAYNE Administration Cefazolin Sodium 2 gm in 50 mls @ 100 mls/hr 07/09/20 14:15 07/11/20 07:29 Ancef 2 Gm/D5w 50 Ml IVPB Infused Q8HR DEWAYNE Infusion Loperamide HCl 2 mg 07/10/20 10:30 07/10/20 17:01 Loperamide Hcl PO
[2020-07-11] MEDS: LIDOCAINE HCL 1% PF INJ 5 ML VIAL INFILTRATE (14:30)
--- NOTE | 2020-07-11 14:51 | PCPTNOTE ---
The PT treatment was unable to be completed today. Patient in procedure and unavailable. Will continue per Plan of Care frequency and duration.
[2020-07-11] MEDS: CENTRAL LINE FLUSH 10 ML IV PUSH (20:03)
--- NOTE | 2020-07-11 20:25 | PM.IMPN ---
Progress Note: A&P Assessment and Plan (1) Ileus: Code(s): K56.7 - Ileus, unspecified Status: Resolved Assessment and Plan: Patient was having diarrhea felt related to abx. Stool frequency decrease with immodium. Today, abd very distended. Abd xray showing markedly distended colon. Radiolgoy recommended hypaque enema but molly hold this and have GI consulted. may need decompression.. She does not walk. NPO. Check CT scan. Repeat labs (2) CHF (congestive heart failure): Qualifiers: Heart failure chronicity: acute on chronic Heart failure type: diastolic Qualified Code(s): I50.33 - Acute on chronic diastolic (congestive) heart failure Code(s): I50.9 - Heart failure, unspecified Status: Acute Assessment and Plan: Mild acute on chronic diastolic heart failure . Echocardiogram in January had any EF of 50-55% and repeat now 55-60% and no vegetation seen by TTE. Lasix 80 qd on hold. (3) Sepsis: Qualifiers: Acute respiratory failure type: with hypercapnia Sepsis acute organ dysfunction status: with acute organ dysfunction Sepsis type: sepsis due to unspecified organism Severe sepsis acute organ dysfunction type: acute respiratory failure Severe sepsis shock status: without septic shock Qualified Code(s): A41.9 - Sepsis, unspecified organism; R65.20 - Severe sepsis without septic shock; J96.02 - Acute respiratory failure with hypercapnia Code(s): A41.9 - Sepsis, unspecified organism Status: Acute Assessment and Plan: w/ fever, tachycardia, tachypnea. Source of sepsis may be pulmonary but probably diskitis/osteo. Has had a negative swallow study before. Bld cultures 07/04 positive MSSA. TTE no vegetations. Repeat BC 07/08 NGTD. ID following and abx changed. PICC line placed today. COVID test negative. (4) Abnormal urinalysis: Code(s): R82.90 - Unspecified abnormal findings in urine Status: Acute Assessment and Plan: Urine culture growing enterococcus though doubt this contributing to sepsis. Vanco stopped since is MSSA in blood. Treated with Vanco from 07/06-. ID following. (5) Atrial fibrillation: Qualifiers: Atrial fibrillation type: unspecified chronic Qualified Code(s): I48.20 - Chronic atrial fibrillation, unspecified Code(s): I48.91 - Unspecified atrial fibrillation Status: Chronic Assessment and Plan: Currently rate controlled. Medications on hold. May need IV Diltiazem if she become stachycardic. (6) Hypertension: Qualifiers: Hypertension type: essential hypertension Qualified Code(s): I10 - Essential (primary) hypertension Code(s): I10 - Essential (primary) hypertension Status: Chronic Assessment and Plan: Patient's blood pressure was reviewed on 07/11 Blood pressure remains well controlled. Will continue to monitor. current medications with metoprolol and diltiazem will be held for now (7) Anemia: Qualifiers: Anemia type: unspecified type Qualified Code(s): D64.9 - Anemia, unspecified Code(s): D64.9 - Anemia, unspecified Status: Acute Assessment and Plan: chronic with no obvious blood loss. suspect related to chronic inflammatory process. Hgb stable 7-8 Range. Repeat in AM. (8) Closed T6 spinal fracture: Qualifiers: Encounter type: subsequent encounter Fracture healing: with routine healing Fracture morphology: unspecified fracture morphology Qualified Code(s): S22.059D - Unspecified fracture of T5-T6 vertebra, subsequent encounter for fracture with routine healing Code(s): S22.059A - Unspecified fracture of T5-T6 vertebra, initial encounter for closed fracture Status: Acute Assessment and Plan: Fracture occurred with accident from a fall in January. Patient received 6 weeks of antibiotics from [facility] for possible infection and now MR geeta fany
[2020-07-12] VITALS (12 sets, daily range): BP systolic 113–126; BP diastolic 61–76; PULSE 82–103; RESP 12–20; TEMP 36.3–37.1; O2SAT 92–100
[2020-07-12] MEDS: ALBUTEROL SULFATE NEB 2.5 MG/0.5 ML INH 5 MG INHALATION ×3 (02:03→20:53)
[2020-07-12] MEDS: CENTRAL LINE FLUSH 10 ML IV PUSH ×3 (05:08→20:36)
[2020-07-12] MEDS: ceFAZolin 2 GM/D5W 50 ML 2 GM/50 ML BAG IVPB ×3 (05:08→20:36)
[2020-07-12 05:13] LABS: Basophils Percent Auto 0.3 % (0.2-1.2); Eosinophils Absolute Auto 0.4 K/mm3 (0-0.3); Eosinophils Percent Auto 4.5 % (0-4.4); Hematocrit 26.2 % (37.0-47.0); Hemoglobin 7.8 g/dL (12.0-15.0); Immature Granulocyte Absolute 0.06 K/mm3 (0.00-0.031); Immature Granulocyte Percent A 0.6 % (0-0.5); Lymphocytes Absolute Auto 1.13 K/mm3 (0.9-3.2); Mean Corpuscular HGB Conc 29.8 g/dl (32-36); Mean Corpuscular Hemoglobin 28.9 pg (26-34); Mean Platelet Volume 8.9 fl (7.4-10.4); Monocytes Absolute Auto 0.8 K/mm3 (0.1-0.6); Monocytes Percent Auto 8.8 % (2.6-8.5); Neutrophils Absolute Auto 6.9 K/mm3 (1.3-6.7); Neutrophils Percent Auto 73.8 % (45.5-73.1); Platelet Count Result 288 k/mm3 (150-375); Red Cell Distribution Width 14.4 % (11.5-14.5); White Blood Count 9.4 K/mm3 (4.5-10.0)
[2020-07-12 05:44] LABS: Albumin Level 3.1 g/dL (3.5-5.1); Alkaline Phosphatase 57 U/L (38-126); Anion Gap 6 mmol/L (8-16); Aspartate Amino Transferase 20 U/L (14-36); Bilirubin,Total 0.3 mg/dL (0.2-1.3); Blood Urea Nitrogen 17 mg/dL (7-17); CRP 7.2 mg/dL (<1.0); Calcium 8.8 mg/dL (8.4-10.2); Carbon Dioxide 39 mmol/L (22-30); Chloride 92 mmol/L (98-107); Estimated CRCL calculation 91 ml/min; Estimated Glomerular Filt Rate > 60; Glucose 119 mg/dL (65-105); Magnesium 1.3 mg/dL (1.6-2.3); Potassium 2.2 mmol/L (3.4-5.0); Sodium 137 mmol/L (137-145)
[2020-07-12 05:55] LABS: Alanine Aminotransferase < 4 U/L (4-35)
[2020-07-12 06:15] LABS: Anisocytosis 1+ (NORMAL); Hypochromasia 1+ (NORMAL); Platelet Estimate Adequate (Adequate)
[2020-07-12 06:46] LABS: Magnesium 1.3 mg/dL (1.6-2.3)
[2020-07-12 06:47] LABS: Potassium 2.2 mmol/L (3.4-5.0)
[2020-07-12] MEDS: MAGNESIUM SULF 4 GM/WATER100ML 4 GM/100 ML BAG IVPB (07:25)
--- NOTE | 2020-07-12 09:43 | PM.IMPN ---
Progress Note: A&P Assessment and Plan (1) Ileus: Code(s): K56.7 - Ileus, unspecified Status: Resolved Assessment and Plan: Patient was having diarrhea felt related to abx. Stool frequency decrease with immodium. Abd noted to be very distended 07/11 wiht Abd xray showing markedly distended colon. CT scan ordered. GI consult. She ma have Olgivy's made worse by the electrolyte abnormalities +/- imodium. Electolytes being replaced. She is having BMs. Repeat labs later today. (2) Electrolyte abnormality: Code(s): E87.8 - Other disorders of electrolyte and fluid balance, not elsewhere classified Status: Acute Assessment and Plan: Patient on Lasix and Spironolactone at home but not on supplemental potassium. Suspect drop in potassium related to low Mag possibly from diarrhea. Potassium and Mag being replaced. Repeat levels. Will add chronic oral replacement once able to eat. (3) CHF (congestive heart failure): Qualifiers: Heart failure chronicity: acute on chronic Heart failure type: diastolic Qualified Code(s): I50.33 - Acute on chronic diastolic (congestive) heart failure Code(s): I50.9 - Heart failure, unspecified Status: Acute Assessment and Plan: Mild acute on chronic diastolic heart failure . Echocardiogram in January had any EF of 50-55% and repeat now 55-60% and no vegetation seen by TTE. Lasix 80 qd on hold. (4) Sepsis: Qualifiers: Acute respiratory failure type: with hypercapnia Sepsis acute organ dysfunction status: with acute organ dysfunction Sepsis type: sepsis due to unspecified organism Severe sepsis acute organ dysfunction type: acute respiratory failure Severe sepsis shock status: without septic shock Qualified Code(s): A41.9 - Sepsis, unspecified organism; R65.20 - Severe sepsis without septic shock; J96.02 - Acute respiratory failure with hypercapnia Code(s): A41.9 - Sepsis, unspecified organism Status: Acute Assessment and Plan: w/ fever, tachycardia, tachypnea. Source of sepsis may be pulmonary but probably diskitis/osteo. Has had a negative swallow study before. BCx 07/04 positive MSSA. TTE no vegetations. Repeat BCx 07/08 NGTD. ID following and abx changed. PICC line placed 07/11. COVID test negative. (5) Abnormal urinalysis: Code(s): R82.90 - Unspecified abnormal findings in urine Status: Acute Assessment and Plan: Urine culture growing enterococcus though doubt this contributing to sepsis. Vanco stopped since is MSSA in blood. Treated with Vanco from 07/06-. ID following. (6) Atrial fibrillation: Qualifiers: Atrial fibrillation type: unspecified chronic Qualified Code(s): I48.20 - Chronic atrial fibrillation, unspecified Code(s): I48.91 - Unspecified atrial fibrillation Status: Chronic Assessment and Plan: Currently rate controlled. Medications on hold. May need IV if she become tachycardic. (7) Hypertension: Qualifiers: Hypertension type: essential hypertension Qualified Code(s): I10 - Essential (primary) hypertension Code(s): I10 - Essential (primary) hypertension Status: Chronic Assessment and Plan: Patient's blood pressure was reviewed on 07/12 Blood pressure remains well controlled. Will continue to monitor. Current medications with metoprolol and diltiazem on hold (8) Anemia: Qualifiers: Anemia type: unspecified type Qualified Code(s): D64.9 - Anemia, unspecified Code(s): D64.9 - Anemia, unspecified Status: Acute Assessment and Plan: Chronic anemia. No evidence of obvious blood loss. Suspect related to chronic inflammatory process. Hgb stable 7-8 range. (9) Closed T6 spinal fracture: Qualifiers: Encounter type: subsequent encounter Fracture healing: with routine healing Fracture morphology: unspecified fracture
[2020-07-12] MEDS: SALINE 0.65% NAS SOLN 44 ML BTL 1 SPRAY NASAL (10:56)
[2020-07-12] MEDS: BETAMETHASONE/CLOTRIMAZOLE CR 15 GM TUBE 1 APPLIC TOPICAL ×2 (10:56→17:20)
[2020-07-12 13:42] LABS: Magnesium 2.3 mg/dL (1.6-2.3); Potassium 2.7 mmol/L (3.4-5.0)
--- NOTE | 2020-07-12 16:10 | WPDGICN ---
Assessment and Plan Assessment and plan (1) Ileus: Code(s): K56.7 - Ileus, unspecified Status: Resolved Assessment and Plan: I think ileus is multifactorial from severe hypokalemia, sepsis with mssa bacteremia, use of imodium, severely decontioning status, etc she denies n/v and had flatus, will try CL diet as tolerated kub in am (2) Sepsis: Qualifiers: Sepsis type: sepsis due to unspecified organism Sepsis acute organ dysfunction status: with acute organ dysfunction Severe sepsis acute organ dysfunction type: acute respiratory failure Acute respiratory failure type: with hypercapnia Severe sepsis shock status: without septic shock Qualified Code(s): A41.9 - Sepsis, unspecified organism; R65.20 - Severe sepsis without septic shock; J96.02 - Acute respiratory failure with hypercapnia Code(s): A41.9 - Sepsis, unspecified organism Status: Acute Assessment and Plan: on iv antibiotics by id, recurrent infection (3) Bacteremia due to methicillin susceptible Staphylococcus aureus (MSSA): Code(s): R78.81 - Bacteremia; B95.61 - Methicillin susceptible Staphylococcus aureus infection as the cause of diseases classified elsewhere Status: Acute (4) CHF (congestive heart failure): Qualifiers: Heart failure chronicity: acute on chronic Heart failure type: diastolic Qualified Code(s): I50.33 - Acute on chronic diastolic (congestive) heart failure Code(s): I50.9 - Heart failure, unspecified Status: Acute (5) Morbid obesity: Code(s): E66.01 - Morbid (severe) obesity due to excess calories Status: Acute (6) Hypokalemia: Code(s): E87.6 - Hypokalemia Status: Acute Assessment and Plan: replacing now and repeat levels again GI Consult Note Consult date/time: 07/12/20 16:10 Reason for consult: ileus HPI: Trina Larkin is a 70 year old residential female with multiple medical problems including morbid obesity, YESENIA, atrial fibrillation, diastolic heart failure, admitted 07/04 with respiratory failure and found to have persistent MSSA bacteremia, with infection at T spine discs. She has been getting iv antibiotics by ID, also had diarrhea probably secondary to antibiotics on imodium prn. Noted to have more distended abdomen however no nausea or vomiting. CT scan showed distended ascending and transverse colon without focal transition point, consistent with ileus, small pleural effusions with bibasilar atelectasis. Also noted low K 2.2. Patient says that had bowel movement yesterday. Review of Systems Review of Systems: Narrative: deconditioned Constitutional: Constitutional: Denies headache(s), Reports lethargy and Reports weakness Eyes: Eyes: Denies blurry vision ENT: Reports Normal hearing present, Denies headache(s) and Denies neck pain Cardiovascular: Cardiovascular: Denies chest pain and Denies dyspnea Respiratory: Respiratory: Reports dyspnea on exertion Musculoskeletal: Musculoskeletal: Reports back pain Neurologic: Reports Normal hearing present and Denies headache(s) Psychiatric: Psychiatric: Reports anxiety Endocrine: Endocrine: Denies change in body appearance Hematologic/Lymphatic: Hematologic/Lymphatic: Denies easy bleeding Allergic/Immunologic: Allergic/Immunologic: Denies urticaria PMFSH Past Medical History Medical History Atrial fibrillation Congestive heart failure DVT (deep venous thrombosis) on Eliquis Hypertension Left humeral fracture Morbid obesity Sepsis due to methicillin susceptible Staphylococcus aureus (MSSA) with acute hypercapnic respiratory failure Stable burst fracture of t5-T6 vertebra, initial encounter for closed fracture Venous stasis dermatitis Surgical History Surgical History H/O hernia repair Ventral S/P appendectomy Family History Family History (Re
[2020-07-13] VITALS (15 sets, daily range): BP systolic 106–137; BP diastolic 64–88; PULSE 80–133; RESP 18–25; TEMP 36.2–37.1; O2SAT 94–100
[2020-07-13] MEDS: ALBUTEROL SULFATE NEB 2.5 MG/0.5 ML INH 5 MG INHALATION ×4 (01:36→21:03)
[2020-07-13] MEDS: ceFAZolin 2 GM/D5W 50 ML 2 GM/50 ML BAG IVPB ×3 (05:27→21:11)
[2020-07-13] MEDS: CENTRAL LINE FLUSH 10 ML IV PUSH ×3 (05:28→21:12)
[2020-07-13 05:38] LABS: Hematocrit 25.9 % (37.0-47.0); Mean Corpuscular HGB Conc 30.9 g/dl (32-36); Mean Corpuscular Hemoglobin 29.7 pg (26-34); Mean Corpuscular Volume 96.3 fl (80-100); Mean Platelet Volume 8.8 fl (7.4-10.4); Platelet Count Result 320 k/mm3 (150-375); Red Blood Count 2.69 M/mm3 (4.2-5.4); Red Cell Distribution Width 14.5 % (11.5-14.5); White Blood Count 9.7 K/mm3 (4.5-10.0)
[2020-07-13 06:01] LABS: Anion Gap 7 mmol/L (8-16); Blood Urea Nitrogen 12 mg/dL (7-17); Calcium 8.9 mg/dL (8.4-10.2); Carbon Dioxide 36 mmol/L (22-30); Chloride 93 mmol/L (98-107); Estimated CRCL calculation 128 ml/min; Estimated Glomerular Filt Rate > 60; Glucose 123 mg/dL (65-105); Magnesium 1.9 mg/dL (1.6-2.3); Potassium 2.3 mmol/L (3.4-5.0); Sodium 136 mmol/L (137-145)
[2020-07-13] MEDS: POTASSIUM CHLORIDE 20 MEQ PACKET (FOR LIQUID) 40 MEQ PO (06:19)
[2020-07-13] MEDS: MAGNESIUM SULF 2 GM/WATER 50ML 2 GM/50 ML BAG IVPB (07:52)
[2020-07-13] MEDS: POTASSIUM CHLORIDE 20 MEQ TABLET.ER 40 MEQ PO ×2 (07:58→17:21)
[2020-07-13] MEDS: METOPROLOL TARTRATE 12.5 MG TABLET PO ×2 (09:16→21:12)
[2020-07-13] MEDS: SPIRONOLACTONE 25 MG TABLET PO (09:16)
[2020-07-13] MEDS: BETAMETHASONE/CLOTRIMAZOLE CR 15 GM TUBE 1 APPLIC TOPICAL ×2 (09:17→17:21)
[2020-07-13] MEDS: APIXABAN 5 MG TABLET PO ×2 (09:18→17:21)
[2020-07-13] MEDS: SALINE 0.65% NAS SOLN 44 ML BTL 1 SPRAY NASAL ×2 (09:19→17:22)
--- NOTE | 2020-07-13 09:31 | WPDGIPROGNO ---
Progress Note: A&P Assessment and Plan (1) Ileus: Code(s): K56.7 - Ileus, unspecified Status: Resolved Assessment and Plan: ileus multifactorial (persistent hypokalemia which is being treated now), sepsis with bacteremia, poor mobility, recent use of imodium after iv antibiotics, etc ok to continue with CL diet for now (she is tolerating, also having BM's and no nausea) (2) Hypokalemia: Code(s): E87.6 - Hypokalemia Status: Acute Assessment and Plan: on K replacement now, Mg level was normal (3) Bacteremia due to methicillin susceptible Staphylococcus aureus (MSSA): Code(s): R78.81 - Bacteremia; B95.61 - Methicillin susceptible Staphylococcus aureus infection as the cause of diseases classified elsewhere Status: Acute Assessment and Plan: ID on board (4) Closed T6 spinal fracture: Qualifiers: Encounter type: subsequent encounter Fracture morphology: unspecified fracture morphology Fracture healing: with routine healing Qualified Code(s): S22.059D - Unspecified fracture of T5-T6 vertebra, subsequent encounter for fracture with routine healing Code(s): S22.059A - Unspecified fracture of T5-T6 vertebra, initial encounter for closed fracture Status: Acute Assessment and Plan: probably source of bacteremia (5) Morbid obesity: Code(s): E66.01 - Morbid (severe) obesity due to excess calories Status: Acute Subjective Date/time seen: 07/13/20 09:31 Interval history: she had total of 3 BM since last night, also passing gas. Denies nausea or pain, abdomen still distended. Also low K Review of Systems Review of Systems: All systems reviewed & are unremarkable except as noted in HPI and below Exam Const: General: no acute distress Other: morbidly obese lying in bed HENMT: General nose exam: Normal nares present Eyes: General: appearance normal, both eyes and all related structures Neck: Neck: no JVD Resp: Auscultation: diminished lung sounds Cardio: Rate: regular rate Rhythm: regular rhythm GI: Inspection: distended GI Palp: Yes Soft to palpation, No Tenderness to palpation present (GI) and No Guarding due to palpation present (GI) Auscultation: abnormal bowel sounds and Hypoactive bowel sounds present Skin: General skin exam: normal color Neuro: Speech: normal speech Psych: Mental Status: mental status grossly normal Objective Data Vital Signs Vital Signs: Vital Signs - 24 hr 07/12/20 13:10 07/12/20 13:20 07/12/20 14:00 Temperature 98.7 F Pulse Rate 83 85 103 H Respiratory Rate 18 18 20 Blood Pressure 118/61 Pulse Oximetry 92 07/12/20 20:50 07/12/20 20:55 07/12/20 21:00 Temperature Pulse Rate 102 H 102 H Respiratory Rate 20 20 Blood Pressure Pulse Oximetry 93 07/12/20 22:00 07/13/20 01:30 07/13/20 01:39 Temperature 97.4 F L Pulse Rate 97 103 H 102 H Respiratory Rate 20 25 H 25 H Blood Pressure 126/76 Pulse Oximetry 95 96 07/13/20 01:42 07/13/20 06:00 07/13/20 08:48 Temperature 97.2 F L Pulse Rate 103 H 92 Respiratory Rate 25 H 18 Blood Pressure 131/78 Pulse Oximetry 94 94 07/13/20 08:50 07/13/20 09:01 07/13/20 09:16 Temperature Pulse Rate 100 133 H Respiratory Rate 20 20 Blood Pressure Pulse Oximetry Intake/Output Intake/Output: Intake & Output 07/10/20 07/11/20 07/12/20 07/13/20 23:59 23:59 23:59 23:59 Intake Total 1570 1815 1175 540 Output Total 500 Balance 1570 1815 675 540 Meds/Results Medications: Active Medications Generic Name Dose Route Start Last Admin Trade Name Freq PRN Reason Stop Dose Admin Hydrocodone Bitart/Acetaminophen 1 tab 07/08/20 14:07 07/11/20 08:37 Rico 10-325 Mg PO 1 tab Q4H PRN Administration Pain Albuterol 5 mg 07/05/20 20:00 07/13/20 08:46 Albuterol Sulf Neb 2.5mg/0.5ml INHALATION 5 mg Q6HRT DEWAYNE Administration Apixaban 5 mg 07/05/20 09:00 07/13
[2020-07-13 11:22] LABS: Magnesium 2.2 mg/dL (1.6-2.3); Potassium 3.2 mmol/L (3.4-5.0)
[2020-07-13 14:58] LABS: SARS-CoV-2 RNA PCR Negative
[2020-07-13] MEDS: ATORVASTATIN 10 MG TABLET PO (17:21)
--- NOTE | 2020-07-13 17:52 | PM.IMPN ---
Progress Note: A&P Assessment and Plan (1) Ileus: Code(s): K56.7 - Ileus, unspecified Status: Resolved Assessment and Plan: Patient was having diarrhea felt related to abx. Stool frequency decrease with immodium. Abd noted to be very distended 07/11 wiht Abd xray showing markedly distended colon. Patient made NPO. CT scan ordered. GI consulted. CT scan showing distended ascending and transverse colon without focal transition point, consistent with ileus. J[place] ileus related to imodium, electrolyte disturbance, septicemia, etc. Replacing electrolytes. Now having BMs. Exam much improved. If remains stable, will advance diet tomorrow. (2) Electrolyte abnormality: Code(s): E87.8 - Other disorders of electrolyte and fluid balance, not elsewhere classified Status: Acute Assessment and Plan: Patient on Lasix and Spironolactone at home but not on supplemental potassium. Suspect drop in potassium related to low Mag possibly from diarrhea. Potassium and Mag being replaced. Will add chronic oral replacement. (3) CHF (congestive heart failure): Qualifiers: Heart failure chronicity: acute on chronic Heart failure type: diastolic Qualified Code(s): I50.33 - Acute on chronic diastolic (congestive) heart failure Code(s): I50.9 - Heart failure, unspecified Status: Acute Assessment and Plan: Acute on chronic diastolic heart failure . Echo in January had any EF of 50-55% and repeat now 55-60% and no vegetation seen by TTE. Lasix 80 qd on hold. (4) Sepsis: Qualifiers: Acute respiratory failure type: with hypercapnia Sepsis acute organ dysfunction status: with acute organ dysfunction Sepsis type: sepsis due to unspecified organism Severe sepsis acute organ dysfunction type: acute respiratory failure Severe sepsis shock status: without septic shock Qualified Code(s): A41.9 - Sepsis, unspecified organism; R65.20 - Severe sepsis without septic shock; J96.02 - Acute respiratory failure with hypercapnia Code(s): A41.9 - Sepsis, unspecified organism Status: Acute Assessment and Plan: w/ fever, tachycardia, tachypnea. Source of septicemia may be pulmonary but probably diskitis/osteo. Has had a negative swallow study before. BCx 07/04 positive MSSA. TTE no vegetations. Repeat BCx 07/08 NGTD. ID following and abx changed. PICC line placed 07/11. COVID test negative. (5) Abnormal urinalysis: Code(s): R82.90 - Unspecified abnormal findings in urine Status: Acute Assessment and Plan: Urine culture growing enterococcus though doubt this contributing to sepsis. Vanco stopped since she has MSSA in blood. Treated with Vanco from 07/06-. ID following. (6) Atrial fibrillation: Qualifiers: Atrial fibrillation type: unspecified chronic Qualified Code(s): I48.20 - Chronic atrial fibrillation, unspecified Code(s): I48.91 - Unspecified atrial fibrillation Status: Chronic Assessment and Plan: Currently rate controlled. Medications on hold. Tolerting clear liquids. Okay to resume Diltiazem and Eliquis. (7) Hypertension: Qualifiers: Hypertension type: essential hypertension Qualified Code(s): I10 - Essential (primary) hypertension Code(s): I10 - Essential (primary) hypertension Status: Chronic Assessment and Plan: Patient's blood pressure was reviewed on 07/13 Blood pressure reasonable. Will continue to monitor. Resume metoprolol and diltiazem (8) Anemia: Qualifiers: Anemia type: unspecified type Qualified Code(s): D64.9 - Anemia, unspecified Code(s): D64.9 - Anemia, unspecified Status: Acute Assessment and Plan: Chronic anemia. No evidence of obvious blood loss. Suspect related to chronic inflammatory process. Hgb stable 7-8 range. (9) Closed T6 spinal fracture: Qualifiers: Encounter ty
[2020-07-14] VITALS (17 sets, daily range): BP systolic 116–143; BP diastolic 66–84; PULSE 78–100; RESP 16–28; TEMP 36.2–36.5; O2SAT 94–100
[2020-07-14] MEDS: ALBUTEROL SULFATE NEB 2.5 MG/0.5 ML INH 5 MG INHALATION ×4 (02:21→20:14)
[2020-07-14 04:45] LABS: Hematocrit 26.2 % (37.0-47.0); Mean Corpuscular HGB Conc 30.5 g/dl (32-36); Mean Corpuscular Hemoglobin 29.6 pg (26-34); Mean Platelet Volume 8.8 fl (7.4-10.4); Platelet Count Result 301 k/mm3 (150-375); Red Cell Distribution Width 14.7 % (11.5-14.5); White Blood Count 8.8 K/mm3 (4.5-10.0)
[2020-07-14] MEDS: ceFAZolin 2 GM/D5W 50 ML 2 GM/50 ML BAG IVPB ×3 (05:21→21:53)
[2020-07-14] MEDS: CENTRAL LINE FLUSH 10 ML IV PUSH ×3 (05:21→22:04)
[2020-07-14 05:32] LABS: Albumin Level 3.1 g/dL (3.5-5.1); Anion Gap 6 mmol/L (8-16); Blood Urea Nitrogen 7 mg/dL (7-17); Calcium 8.8 mg/dL (8.4-10.2); Carbon Dioxide 33 mmol/L (22-30); Chloride 96 mmol/L (98-107); Estimated CRCL calculation 128 ml/min; Estimated Glomerular Filt Rate > 60; Glucose 109 mg/dL (65-105); Magnesium 1.8 mg/dL (1.6-2.3); Phosphorus 3.5 mg/dL (2.5-4.5); Potassium 2.8 mmol/L (3.4-5.0); Sodium 135 mmol/L (137-145)
[2020-07-14] MEDS: POTASSIUM CHLORIDE 20 MEQ PACKET (FOR LIQUID) 40 MEQ PO (06:13)
[2020-07-14] MEDS: POTASSIUM CHLORIDE 20 MEQ TABLET.ER 40 MEQ PO ×2 (07:57→16:57)
[2020-07-14] MEDS: SPIRONOLACTONE 25 MG TABLET PO (07:58)
[2020-07-14] MEDS: METOPROLOL TARTRATE 12.5 MG TABLET PO ×2 (07:58→20:33)
[2020-07-14] MEDS: APIXABAN 5 MG TABLET PO ×2 (07:58→16:56)
[2020-07-14] MEDS: BETAMETHASONE/CLOTRIMAZOLE CR 15 GM TUBE 1 APPLIC TOPICAL ×2 (08:00→16:57)
[2020-07-14] MEDS: SALINE 0.65% NAS SOLN 44 ML BTL 1 SPRAY NASAL ×2 (08:01→16:58)
[2020-07-14] MEDS: MAGNESIUM SULF 2 GM/WATER 50ML 2 GM/50 ML BAG IVPB (08:42)
[2020-07-14 12:07] LABS: Potassium 3.9 mmol/L (3.4-5.0)
[2020-07-14 12:11] LABS: Magnesium 2.2 mg/dL (1.6-2.3)
--- NOTE | 2020-07-14 12:47 | WPDGIPROGNO ---
Progress Note: A&P Assessment and Plan (1) Ileus: Code(s): K56.7 - Ileus, unspecified Status: Resolved Assessment and Plan: ileus multifactorial (persistent hypokalemia which is being treated now), sepsis with bacteremia, poor mobility, recent use of imodium after iv antibiotics, etc will advance to full liquid diet, exam today improved (2) Hypokalemia: Code(s): E87.6 - Hypokalemia Status: Acute Assessment and Plan: potassium replaced by primary (3) Bacteremia due to methicillin susceptible Staphylococcus aureus (MSSA): Code(s): R78.81 - Bacteremia; B95.61 - Methicillin susceptible Staphylococcus aureus infection as the cause of diseases classified elsewhere Status: Acute Assessment and Plan: ID on board (4) Closed T6 spinal fracture: Qualifiers: Encounter type: subsequent encounter Fracture morphology: unspecified fracture morphology Fracture healing: with routine healing Qualified Code(s): S22.059D - Unspecified fracture of T5-T6 vertebra, subsequent encounter for fracture with routine healing Code(s): S22.059A - Unspecified fracture of T5-T6 vertebra, initial encounter for closed fracture Status: Acute Assessment and Plan: probably source of bacteremia (5) Morbid obesity: Code(s): E66.01 - Morbid (severe) obesity due to excess calories Status: Acute Subjective Date/time seen: 07/14/20 12:47 Interval history: she had 2 BM, no nausea or vomiting and tolerating CL diet Review of Systems Review of Systems: All systems reviewed & are unremarkable except as noted in HPI and below Exam Const: General: no acute distress Other: morbidly obese lying in bed HENMT: General nose exam: Normal nares present Eyes: General: appearance normal, both eyes and all related structures Neck: Neck: no JVD Resp: Auscultation: diminished lung sounds Cardio: Rate: regular rate Rhythm: regular rhythm GI: GI Palp: Yes Soft to palpation, No Tenderness to palpation present (GI) and No Guarding due to palpation present (GI) Auscultation: normal bowel sounds Other: less distended today Skin: General skin exam: normal color Neuro: Speech: normal speech Psych: Mental Status: mental status grossly normal Objective Data Vital Signs Vital Signs: Vital Signs - 24 hr 07/13/20 14:00 07/13/20 15:22 07/13/20 15:32 Temperature 98.0 F Pulse Rate 96 96 98 Respiratory Rate 18 20 20 Blood Pressure 106/64 Pulse Oximetry 95 07/13/20 21:03 07/13/20 21:06 07/13/20 21:12 Temperature Pulse Rate 101 H 101 H 80 Respiratory Rate 20 20 Blood Pressure Pulse Oximetry 07/13/20 22:00 07/14/20 00:15 07/14/20 02:15 Temperature 98.8 F Pulse Rate 97 100 99 Respiratory Rate 20 28 H 20 Blood Pressure 137/88 Pulse Oximetry 100 96 07/14/20 02:22 07/14/20 02:24 07/14/20 06:00 Temperature 97.6 F Pulse Rate 97 99 78 Respiratory Rate 21 H 20 20 Blood Pressure 128/69 Pulse Oximetry 97 96 07/14/20 07:58 07/14/20 08:24 07/14/20 08:33 Temperature Pulse Rate 80 96 98 Respiratory Rate 20 20 Blood Pressure Pulse Oximetry 97 Intake/Output Intake/Output: Intake & Output 07/11/20 07/12/20 07/13/20 07/14/20 23:59 23:59 23:59 23:59 Intake Total 1815 1175 2961 917 Output Total 500 550 Balance 3502 665 6019 367 Meds/Results Medications: Active Medications Generic Name Dose Route Start Last Admin Trade Name Freq PRN Reason Stop Dose Admin Hydrocodone Bitart/Acetaminophen 1 tab 07/08/20 14:07 07/11/20 08:37 [place] 10-325 Mg PO 1 tab Q4H PRN Administration Pain Hydrocodone Bitart/Acetaminophen 1 tab 07/13/20 12:35 07/14/20 05:23 [place] 5-325 Mg PO 1 tab Q6H PRN Administration lower leg pain Albuterol 5 mg 07/05/20 20:00 07/14/20 08:24 Albuterol Sulf Neb 2.5mg/0.5ml INHALATION 5 mg Q6HRT DEWAYNE Administration Apixaban 5 mg 07/05/20 09:00
--- NOTE | 2020-07-14 13:55 | PM.IMPN ---
Progress Note: A&P Assessment and Plan (1) Ileus: Code(s): K56.7 - Ileus, unspecified Status: Resolved Assessment and Plan: Patient was having diarrhea felt related to abx. Stool frequency decrease with immodium. Abd noted to be very distended 07/11 with Abd xray showing markedly distended colon. Patient made NPO. GI consulted. CT scan showing distended ascending and transverse colon without focal transition point, consistent with ileus. [place] ileus related to imodium, electrolyte disturbance, septicemia, etc. Replacing electrolytes. Now having BMs. Exam much improved. Diet to be advanced today. (2) Electrolyte abnormality: Code(s): E87.8 - Other disorders of electrolyte and fluid balance, not elsewhere classified Status: Acute Assessment and Plan: Patient on Lasix and Spironolactone at home but not on supplemental potassium. Suspect drop in potassium related to low Mag possibly from diarrhea. Potassium 2.8 and Mag 1.8. Both replaced today. Repeat values are normal. Continue chronic oral potassium replacement. (3) CHF (congestive heart failure): Qualifiers: Heart failure chronicity: acute on chronic Heart failure type: diastolic Qualified Code(s): I50.33 - Acute on chronic diastolic (congestive) heart failure Code(s): I50.9 - Heart failure, unspecified Status: Acute Assessment and Plan: Acute on chronic diastolic heart failure . Echo in January had any EF of 50-55% and repeat now 55-60% and no vegetation seen by TTE. Lasix 80 qd on hold. (4) Sepsis: Qualifiers: Acute respiratory failure type: with hypercapnia Sepsis acute organ dysfunction status: with acute organ dysfunction Sepsis type: sepsis due to unspecified organism Severe sepsis acute organ dysfunction type: acute respiratory failure Severe sepsis shock status: without septic shock Qualified Code(s): A41.9 - Sepsis, unspecified organism; R65.20 - Severe sepsis without septic shock; J96.02 - Acute respiratory failure with hypercapnia Code(s): A41.9 - Sepsis, unspecified organism Status: Acute Assessment and Plan: w/ fever, tachycardia, tachypnea. Source of septicemia may be pulmonary but probably diskitis/osteo. Has had a negative swallow study before. BCx 07/04 positive MSSA. TTE no vegetations. Repeat BCx 07/08 NGTD. ID following and abx changed. PICC line placed 07/11. COVID test negative. (5) Abnormal urinalysis: Code(s): R82.90 - Unspecified abnormal findings in urine Status: Acute Assessment and Plan: Urine culture growing enterococcus though doubt this contributing to sepsis. Vanco stopped since she has MSSA in blood. Treated with Vanco from 07/06-. ID following. (6) Atrial fibrillation: Qualifiers: Atrial fibrillation type: unspecified chronic Qualified Code(s): I48.20 - Chronic atrial fibrillation, unspecified Code(s): I48.91 - Unspecified atrial fibrillation Status: Chronic Assessment and Plan: Currently rate controlled. Medications on hold. Tolerating clear liquids. Continue Diltiazem and Eliquis. (7) Hypertension: Qualifiers: Hypertension type: essential hypertension Qualified Code(s): I10 - Essential (primary) hypertension Code(s): I10 - Essential (primary) hypertension Status: Chronic Assessment and Plan: Patient's blood pressure was reviewed on 07/14 Blood pressure reasonable. Will continue to monitor. Continue metoprolol and diltiazem (8) Anemia: Qualifiers: Anemia type: unspecified type Qualified Code(s): D64.9 - Anemia, unspecified Code(s): D64.9 - Anemia, unspecified Status: Acute Assessment and Plan: Chronic anemia. No evidence of obvious blood loss. Suspect related to chronic inflammatory process. Hgb stable 7-8 range. (9) Closed T6 spinal fracture: Qualifiers: Enc
[2020-07-14] MEDS: MAGNESIUM OXIDE 400 MG TABLET PO (15:06)
[2020-07-14] MEDS: SACCHAROMYCES BOULARDII 250 MG CAPSULE PO (16:57)
[2020-07-14] MEDS: ATORVASTATIN 10 MG TABLET PO (16:58)
[2020-07-15] VITALS (10 sets, daily range): BP systolic 127–139; BP diastolic 66–78; PULSE 74–98; RESP 16–22; TEMP 36.3–36.4; O2SAT 95–97
[2020-07-15] MEDS: ALBUTEROL SULFATE NEB 2.5 MG/0.5 ML INH 5 MG INHALATION ×3 (01:35→14:51)
[2020-07-15] MEDS: CENTRAL LINE FLUSH 10 ML IV PUSH ×2 (05:14→14:27)
[2020-07-15] MEDS: ceFAZolin 2 GM/D5W 50 ML 2 GM/50 ML BAG IVPB ×2 (05:14→14:26)
[2020-07-15 05:39] LABS: Albumin Level 3.2 g/dL (3.5-5.1); Anion Gap 5 mmol/L (8-16); Blood Urea Nitrogen 6 mg/dL (7-17); Calcium 9.1 mg/dL (8.4-10.2); Carbon Dioxide 31 mmol/L (22-30); Chloride 101 mmol/L (98-107); Estimated CRCL calculation 127 ml/min; Estimated Glomerular Filt Rate > 60; Glucose 104 mg/dL (65-105); Magnesium 1.9 mg/dL (1.6-2.3); Phosphorus 4.1 mg/dL (2.5-4.5); Potassium 3.7 mmol/L (3.4-5.0); Sodium 137 mmol/L (137-145)
[2020-07-15] MEDS: BETAMETHASONE/CLOTRIMAZOLE CR 15 GM TUBE 1 APPLIC TOPICAL ×2 (08:41→16:24)
[2020-07-15] MEDS: SALINE 0.65% NAS SOLN 44 ML BTL 1 SPRAY NASAL ×2 (08:41→16:25)
[2020-07-15] MEDS: MAGNESIUM OXIDE 400 MG TABLET PO (08:42)
[2020-07-15] MEDS: SACCHAROMYCES BOULARDII 250 MG CAPSULE PO ×2 (08:42→16:24)
[2020-07-15] MEDS: CHOLECALCIFEROL 1,000 UNITS TABLET 1000 UNITS PO (08:42)
[2020-07-15] MEDS: ASCORBIC ACID 500 MG TABLET PO (08:42)
[2020-07-15] MEDS: MULTIVITAMINS THERAPEUTIC TAB (*BKC) 1 TABLET PO (08:42)
[2020-07-15] MEDS: SPIRONOLACTONE 25 MG TABLET PO (08:42)
[2020-07-15] MEDS: APIXABAN 5 MG TABLET PO ×2 (08:42→16:24)
[2020-07-15] MEDS: FERROUS SULFATE 324 MG TABLET PO (08:42)
[2020-07-15] MEDS: METOPROLOL TARTRATE 12.5 MG TABLET PO (09:26)
[2020-07-15] MEDS: POTASSIUM CHLORIDE 20 MEQ TABLET.ER 40 MEQ PO ×2 (09:26→16:24)
--- NOTE | 2020-07-15 14:03 | WPDGIPROGNO ---
Progress Note: A&P Assessment and Plan (1) Ileus: Code(s): K56.7 - Ileus, unspecified Status: Resolved Assessment and Plan: clinically resolved, having BM's and tolerating diet from electrolytes abnormalities, sepsis, previous use imodium, etc will follow from [place], call us if questions (2) Gram-positive cocci bacteremia: Code(s): R78.81 - Bacteremia Status: Acute Assessment and Plan: by ID on treatment (3) Hypokalemia: Code(s): E87.6 - Hypokalemia Status: Acute Assessment and Plan: treated and improved (4) Morbid obesity: Code(s): E66.01 - Morbid (severe) obesity due to excess calories Status: Acute Subjective Date/time seen: 07/15/20 14:03 Interval history: she is tolerating diet and having BM's, only complain is leg pain (chronic) Review of Systems Review of Systems: All systems reviewed & are unremarkable except as noted in HPI and below Exam Const: General: no acute distress Other: morbidly obese lying in bed HENMT: General nose exam: Normal nares present Eyes: General: appearance normal, both eyes and all related structures Neck: Neck: no JVD Resp: Auscultation: diminished lung sounds Cardio: Rate: regular rate Rhythm: regular rhythm GI: GI Palp: Yes Soft to palpation, No Tenderness to palpation present (GI) and No Guarding due to palpation present (GI) Auscultation: normal bowel sounds Neuro: Speech: normal speech Extrem: General: edema (trace edema leg) Psych: Mental Status: mental status grossly normal Objective Data Vital Signs Vital Signs: Vital Signs - 24 hr 07/14/20 14:49 07/14/20 14:57 07/14/20 20:15 Temperature Pulse Rate 88 84 100 Respiratory Rate 20 20 20 Blood Pressure Pulse Oximetry 07/14/20 20:17 07/14/20 20:20 07/14/20 20:33 Temperature Pulse Rate 98 88 Respiratory Rate 20 Blood Pressure Pulse Oximetry 94 07/14/20 22:00 07/14/20 22:47 07/15/20 01:35 Temperature 97.7 F Pulse Rate 84 98 74 Respiratory Rate 16 22 H 17 Blood Pressure 143/84 H Pulse Oximetry 100 96 07/15/20 01:39 07/15/20 01:41 07/15/20 06:00 Temperature 97.6 F Pulse Rate 74 78 80 Respiratory Rate 17 18 16 Blood Pressure 139/66 Pulse Oximetry 97 95 07/15/20 09:20 07/15/20 09:24 07/15/20 09:26 Temperature Pulse Rate 75 83 83 Respiratory Rate 20 18 Blood Pressure Pulse Oximetry 07/15/20 13:34 Temperature 97.3 F L Pulse Rate 98 Respiratory Rate 20 Blood Pressure 127/78 Pulse Oximetry 96 Intake/Output Intake/Output: Intake & Output 07/12/20 07/13/20 07/14/20 07/15/20 23:59 23:59 23:59 23:59 Intake Total 1175 2961 1947 990 Output Total 500 550 Balance 675 2961 1397 990 Meds/Results Medications: Active Medications Generic Name Dose Route Start Last Admin Trade Name Freq PRN Reason Stop Dose Admin Hydrocodone Bitart/Acetaminophen 1 tab 07/13/20 12:35 07/15/20 13:02 [place] 5-325 Mg PO 1 tab Q6H PRN Administration lower leg pain Albuterol 5 mg 07/05/20 20:00 07/15/20 09:17 Albuterol Sulf Neb 2.5mg/0.5ml INHALATION 5 mg Q6HRT DEWAYNE Administration Apixaban 5 mg 07/05/20 09:00 07/15/20 08:42 Eliquis PO 5 mg BID DEWAYNE Administration Ascorbic Acid 500 mg 07/05/20 09:00 07/15/20 08:42 Vitamin C PO 500 mg DAILY DEWAYNE Administration Atorvastatin Calcium 10 mg 07/05/20 18:00 07/14/20 16:58 Lipitor PO 10 mg QPM DEWAYNE Administration Cephalexin HCl 1,000 mg 08/03/20 09:00 Keflex Capsule PO 08/02/21 23:59 Q12HR DEWAYNE Clotrimazole 1 applic 07/05/20 09:00 07/15/20 08:41 Lotrisone Cream TOPICAL 1 applic BID DEWAYNE Administration Cyclobenzaprine HCl 5 mg 07/06/20 13:13 07/11/20 08:38 Flexeril PO 5 mg Q8H PRN Administration Muscle Spasm Diltiazem HCl 120 mg 07/05/20 09:00 07/15/20 08:42 Cardizem Cd PO 120 mg QAM DEWAYNE Administration Ferrous Sulfate 32
--- NOTE | 2020-07-15 14:52 | PM.DS ---
DS: Admitting Diagnosis Admitting Diagnosis Admitting Diagnosis: Acute respiratory failure, hypokalemia, uti DS: Discharge Diagnosis Discharge Diagnosis (1) Ileus: Code(s): K56.7 - Ileus, unspecified Status: Resolved Assessment and Plan: Patient was having diarrhea felt related to abx. Stool frequency decrease with Imodium. Abd noted to be very distended 07/11 with Abd xray showing markedly distended colon c/w ileus. Patient made NPO. GI consulted. CT scan showing distended ascending and transverse colon without focal transition point, consistent with ileus. [place] ileus related to imodium, electrolyte disturbance, septicemia, etc. Electrolytes replaced. Now having BMs. Exam much improved. Diet advanced. (2) Electrolyte abnormality: Code(s): E87.8 - Other disorders of electrolyte and fluid balance, not elsewhere classified Status: Acute Assessment and Plan: Patient on Lasix and Spironolactone at home but not on supplemental potassium. Suspect drop in potassium related to low Mag possibly from diarrhea. Potassium replaced and repeat values are normal. Continue chronic oral potassium replacement. (3) CHF (congestive heart failure): Qualifiers: Heart failure chronicity: acute on chronic Heart failure type: diastolic Qualified Code(s): I50.33 - Acute on chronic diastolic (congestive) heart failure Code(s): I50.9 - Heart failure, unspecified Status: Acute Assessment and Plan: Acute on chronic diastolic heart failure . Echo in January had any EF of 50-55% and repeat now 55-60% and no vegetation seen by TTE. Lasix 80 qd has been on hold but will resume at discharge. (4) Sepsis: Qualifiers: Acute respiratory failure type: with hypercapnia Sepsis acute organ dysfunction status: with acute organ dysfunction Sepsis type: sepsis due to unspecified organism Severe sepsis acute organ dysfunction type: acute respiratory failure Severe sepsis shock status: without septic shock Qualified Code(s): A41.9 - Sepsis, unspecified organism; R65.20 - Severe sepsis without septic shock; J96.02 - Acute respiratory failure with hypercapnia Code(s): A41.9 - Sepsis, unspecified organism Status: Acute Assessment and Plan: w/ fever, tachycardia, tachypnea. Source of septicemia may be pulmonary but probably diskitis/osteo. Has had a negative swallow study before. BCx 8/13 positive MSSA. TTE no vegetations. Repeat BCx 07/08 NGTD. ID following and abx changed. PICC line placed 07/11. COVID test negative. (5) Abnormal urinalysis: Code(s): R82.90 - Unspecified abnormal findings in urine Status: Acute Assessment and Plan: Urine culture growing enterococcus though doubt this contributing to sepsis. Vanco stopped since she has MSSA in blood. Treated with Vanco from 07/06-. ID following. (6) Atrial fibrillation: Qualifiers: Atrial fibrillation type: unspecified chronic Qualified Code(s): I48.20 - Chronic atrial fibrillation, unspecified Code(s): I48.91 - Unspecified atrial fibrillation Status: Chronic Assessment and Plan: Currently rate controlled. Medications on hold. Tolerating clear liquids. Continue Diltiazem and Eliquis. (7) Hypertension: Qualifiers: Hypertension type: essential hypertension Qualified Code(s): I10 - Essential (primary) hypertension Code(s): I10 - Essential (primary) hypertension Status: Chronic Assessment and Plan: Patient's blood pressure was reviewed and was reasonable. We continued metoprolol and diltiazem (8) Anemia: Qualifiers: Anemia type: unspecified type Qualified Code(s): D64.9 - Anemia, unspecified Code(s): D64.9 - Anemia, unspecified Status: Acute Assessment and Plan: Chronic anemia. No evidence of obvious blood loss. Suspect related to chronic inflammatory process. H
[2020-07-15] MEDS: ATORVASTATIN 10 MG TABLET PO (16:26)
== END 2020-07-15 17:10 | DRG 871 ==
LOC: ANHED 21:30 → ANHICU 07-05 02:19 → ANHIMU 07-05 15:58 → ANH2MED 07-07 18:24 → ANHICU 07-16 14:39 → ANHIMU 07-16 14:39
PROVIDERS: Internal Medicine; Admitting Provider Family Medicine; Emergency Provider Emergency Medicine; PCP Internal Medicine Infectious Disease; Visit Provider Internal Medicine
DX: A41.9 Sepsis, unspecified organism (principal); J96.02 Acute respiratory failure with hypercapnia; J96.01 Acute respiratory failure with hypoxia; I50.33 Acute on chronic diastolic (congestive) heart failure; N39.0 Urinary tract infection, site not specified; Z68.42 Body mass index [BMI] 45.0-49.9, adult; M86.9 Osteomyelitis, unspecified; K56.7 Ileus, unspecified; I11.0 Hypertensive heart disease with heart failure; E66.01 Morbid (severe) obesity due to excess calories; E87.6 Hypokalemia; R65.20 Severe sepsis without septic shock; Z20.828 Contact with and (suspected) exposure to other viral communicable diseases; D64.9 Anemia, unspecified; S22.051D Stable burst fracture of T5-T6 vertebra, subsequent encounter for fracture with routine healing; M46.44 Discitis, unspecified, thoracic region; E11.9 Type 2 diabetes mellitus without complications; I87.8 Other specified disorders of veins; R19.7 Diarrhea, unspecified; G47.33 Obstructive sleep apnea (adult) (pediatric)
CPT/HCPCS: 36415; 36569; 36600; 51701; 71045; 72157; 74018; 74176; 80048; 80053; 80069; 80202; 81001; 82274; 82805; 83605; 83615; 83735; 84100; 84132; 84145; 85025; 85027; 85380; 85610; 85730; 86140; 87040; 87070; 87077; 87086; 87088; 87186; 87205; 87635; 93005; 94002; 94003; 94640; 97110; 97162; 97167; 97530; 97535; 99285; A9270; A9577; C1751; C8929; C9803; J0131; J0456; J0690; J0696; J1100; J1885; J1940; J2543; J2700; J3370; J3475; J3480; Q9957; U0003

== ENCOUNTER 2020-07-20 13:42 | Inpatient (IN) | payer MEDICARE, MEDICAID, SELFPAY ==
[2020-07-20] VITALS (15 sets, daily range): BP systolic 100–160; BP diastolic 44–95; PULSE 74–97; RESP 12–20; TEMP 36.2–36.8; O2SAT 76–100; BMI 45.1
--- NOTE | ~2020-07-20 | CT_ITS ---
EXAMINATION: CT abdomen pelvis w con DATE: 07/20/2020 15:09 INDICATION: Abdomen pain and swelling TECHNIQUE: Computed tomography (CT) of the abdomen and pelvis was performed with 100 cc Omnipaque 350 intravenous contrast. The dose-length product was 1384.88 mGy-cm. Automated exposure control and ite rative reconstruction technique were employed. COMPARISON: CT dated 07/12/2020 FINDINGS: Persistent dilated colon without transition point, compatible with ileus. Small pleural eff usions with underlying compressive atelectasis. Cardiomegaly. No significant pericardial effusion. There are calcified granulomas of the liver and spleen. The pancreas, adrenal glands are unremarkable . There are bilateral renal cysts. There is right hydroureteronephrosis. No obstructing stone or mass . There is atherosclerosis without aneurysm. No lymphadenopathy. Midline surgical scar in the lower a bdomen. Endoluminal stent present in the right common iliac vein. Chronic compression fracture of L4. IMPRESSION: 1. Persistent unchanged dilated colon with air-fluid levels, compatible with ileus. 2: Small pleural effusions with underlying compressive atelectasis. 3: Mild right hydroureteronephrosis. No obstructing stone or mass identified. Reviewed, dictated and finalized at location A. IMPRESSION: 1. Persistent unchanged dilated colon with air-fluid levels, compatible with il eus. 2: Small pleural effusions with underlying compressive atelectasis. 3: Mild right hydroureteronephrosis. No obstructing stone or mass identified.
--- NOTE | ~2020-07-20 | XR_ITS ---
XR abdomen NG/feed tube insert INDICATION: Evaluate NG tube position. TECHNIQUE: Limited KUB perform for evaluating NG tube . COMPARISON: 07/13/2020 FINDINGS: NG tube tip in the stomach. Persistent dilation of the colon. There is residual contrast in nondilated renal collecting systems.. IMPRESSION: 1: NG tube tip in the stomach. Reviewed, dictated and finalized at location A.
--- NOTE | ~2020-07-20 | XR_ITS ---
EXAMINATION: XR abdomen obstructive series DATE: 07/22/2020 09:48 INDICATION: Adynamic ileus. TECHNIQUE: Upright and supine views of the abdomen were obtained. COMPARISON: Abdomen radiograph 07/20/2020, CT abdomen and pelvis 07/20/2020 FINDINGS: There is gaseous distention of the colon. There are no dilated loops of small bowel. No margareth e intraperitoneal gas. There is a central venous catheter tip in right atrium. The nasogastric tube t ip is in the stomach. There is a stent in right common and external iliac veins. IMPRESSION: 1. Distended colon, consistent with adynamic ileus. Reviewed, dictated and finalized at location A.
--- NOTE | ~2020-07-20 | XR_ITS ---
XR chest 1V portable 07/20/2020 14:33 Indication: Hypoxemia Procedure: AP portable chest Comparison: Comparison to multiple prior studies sequentially, with oldest reviewed study dated 07/04. Findings: PICC line tip in the SVC. Moderate cardiomegaly. There is right upper and left lower lobe a irspace disease. Small pleural effusions. No pneumothorax. There is large amount of gas in the upper colon. Impression: 1: Right upper and left lower lobe airspace disease, compatible with pneumonia. 2: Moderate cardiomegaly. 3: Small pleural effusions. Reviewed, dictated and finalized at location A. Impression: 1: Right upper and left lower lobe airspace disease, compatible with pneumonia. 2: Moderate cardiomegaly. 3: Small pleural effusions.
--- NOTE | 2020-07-20 13:42 | ED.GENADULT ---
HPI - General Adult General Chief complaint: Abdominal Pain Stated complaint: possible sbo from n/h Source: patient and EMS Mode of arrival: EMS Limitations: no limitations History of Present Illness HPI narrative: Patient is a 70-year-old female with a history of congestive heart failure, T4 MSSA discitis, current PICC line in place, who presents for evaluation of abdominal pain and distention. Patient reports worsening abdominal pain and distention over the past 24 hours. She states she was diagnosed with ileus with her last hospital admission, but was tolerating oral intake and having bowel movements and thus was discharged home. Patient states she has pain throughout her abdomen, significant distention. She has had intermittent diarrhea over the course of yesterday, but no bowel movements today. She reports some mild shortness of breath due to the abdominal distention, feels as if she is unable to take a deep breath. Patient denies fever or chills. No cough or congestion. Patient reports concurrent nausea without vomiting. Related Data Home Medications Medication Instructions Recorded Confirmed Eliquis 5 mg PO BID 02/12/20 07/05/20 acetaminophen 650 mg PO Q4H PRN 02/12/20 07/05/20 cholecalciferol (vitamin D3) 25 mcg PO DAILY 02/12/20 07/05/20 ferrous sulfate 325 mg PO DAILY 02/12/20 07/05/20 albuterol sulfate [Ventolin HFA] 2 puff INHALATION Q6H PRN 03/28/20 07/05/20 atorvastatin 10 mg PO QPM 03/28/20 07/05/20 cyclobenzaprine 5 mg PO PRN PRN 03/28/20 07/05/20 ascorbic acid (vitamin C) 500 mg PO DAILY 06/10/20 07/05/20 gabapentin 300 mg PO HS 06/10/20 07/05/20 metoprolol tartrate 12.5 mg PO Q12H 06/10/20 07/05/20 multivitamin 1 tablet PO DAILY 06/10/20 07/05/20 simvastatin 20 mg PO HS 06/10/20 07/05/20 spironolactone 25 mg PO DAILY 06/10/20 07/05/20 docusate sodium [Colace] 100 mg PO DAILY 07/05/20 07/05/20 bumetanide 2 mg PO DAILY 07/20/20 docusate sodium [Colace] 100 mg PO DAILY 07/20/20 lactobacillus combo #5 mg PO 07/20/20 sodium chloride [[place] Nasal] 1 spray INTRANASAL ONCE 07/20/20 Allergies Allergy/AdvReac Type Severity Reaction Status Date / Time levofloxacin [From Levaquin] Allergy Mild Rash Verified 07/20/20 13:46 adhesive tape AdvReac Mild Itching Verified 07/20/20 13:46 TaperDex Allergy Unknown Uncoded 07/20/20 13:46 Review of Systems Review of Systems: Narrative: CONSTITUTIONAL: Denies fever, chills ENT: Denies rhinorrhea, congestion, sore throat, or otalgia. CARDIOVASCULAR: Denies chest pain, palpitations, or edema. RESPIRATORY: Denies cough, reports shortness of breath due to abdominal distention GASTROINTESTINAL: Reports abdominal pain, nausea and diarrhea GENITOURINARY: Denies dysuria or hematuria. SKIN: Denies rash or itching. MUSCULOSKELETAL: Denies back pain, joint pain, or myalgia. NEUROLOGIC: Denies headache, numbness, or weakness. [facility] Past Medical History Medical History Atrial fibrillation Congestive heart failure DVT (deep venous thrombosis) on Eliquis Hypertension Left humeral fracture Morbid obesity Sepsis due to methicillin susceptible Staphylococcus aureus (MSSA) with acute hypercapnic respiratory failure Stable burst fracture of t5-T6 vertebra, initial encounter for closed fracture Venous stasis dermatitis Surgical History Surgical History H/O hernia repair Ventral S/P appendectomy Family History Family History Sibling Esophagus cancer brother Liver disease brother Heart disease sister Father Heart disease Diabetes mellitus Hypertension Mother Heart disease Hypertension Social History Social History Social History: The patient is . She has 3 sons and 2 daughters. She lives at [facility]
[2020-07-20] MEDS: MORPHINE SULFATE 4 MG/ML INJ IV PUSH (14:24)
[2020-07-20] MEDS: ONDANSETRON INJ 4 MG/2 ML VIAL IV PUSH (14:24)
[2020-07-20] MEDS: SODIUM CHLORIDE 0.9% IV 1,000 ML 999 ML IV CONT (14:25)
--- NOTE | 2020-07-20 14:30 | ECG_ITS ---
Measurements Intervals [place] Rate: 76 P: [place]: 0 QRS: -14 QRSD: 112 T: 40 QT: 424 QTc: 479 Interpretive Statements ATRIAL FIBRILLATION INTRAVENTRICULAR CONDUCTION DELAY NONSPECIFIC ST & T-WAVE ABNORMALITY- HIGH LATERAL LEADS BASELINE ARTIFACT- I, V6 ABNORMAL ECG Electronically Signed On 07-20-2020 16:16:57 CDT by Mike Carrasquillo D.O.
[2020-07-20 14:32] LABS: Basophils Absolute Auto 0.1 K/mm3 (0.0-0.1); Basophils Percent Auto 0.5 % (0.2-1.2); Eosinophils Absolute Auto 0.3 K/mm3 (0-0.3); Eosinophils Percent Auto 3.4 % (0-4.4); Hematocrit 31.3 % (37.0-47.0); Hemoglobin 9.5 g/dL (12.0-15.0); Immature Granulocyte Absolute 0.03 K/mm3 (0.00-0.031); Immature Granulocyte Percent A 0.3 % (0-0.5); Lymphocytes Absolute Auto 1.24 K/mm3 (0.9-3.2); Lymphocytes Percent Auto 13.1 % (18.3-44.2); Mean Corpuscular HGB Conc 30.4 g/dl (32-36); Mean Corpuscular Hemoglobin 29.7 pg (26-34); Mean Corpuscular Volume 97.8 fl (80-100); Mean Platelet Volume 9.3 fl (7.4-10.4); Monocytes Percent Auto 10.7 % (2.6-8.5); Neutrophils Absolute Auto 6.8 K/mm3 (1.3-6.7); Platelet Count Result 398 k/mm3 (150-375); Red Cell Distribution Width 15.3 % (11.5-14.5); White Blood Count 9.5 K/mm3 (4.5-10.0)
[2020-07-20 14:41] LABS: Add Urine Microscopic? YES; Appearance Urine Clear (Clear); Bilirubin Urine Negative (Negative); Blood Urine Negative (Negative); Color Urine Yellow (Yellow); Glucose Urine UA Negative (Negative); Ketones Urine Negative (Negative); Leukocyte Esterase Ur Negative LEU/UL (Negative); Nitrate Urine Negative (Negative); Protein Urine Negative (Negative); Urobilinogen Urine Negative mg/dL (<2.0); WBC Urine 0-3 /hpf
[2020-07-20 14:44] LABS: Albumin Level 3.4 g/dL (3.5-5.1); Alkaline Phosphatase 72 U/L (38-126); Anion Gap 7 mmol/L (8-16); Aspartate Amino Transferase 22 U/L (14-36); Bilirubin,Total 0.3 mg/dL (0.2-1.3); Blood Urea Nitrogen 13 mg/dL (7-17); Calcium 9.4 mg/dL (8.4-10.2); Carbon Dioxide 30 mmol/L (22-30); Chloride 101 mmol/L (98-107); Estimated CRCL calculation 80 ml/min; Estimated Glomerular Filt Rate > 60; Glucose 138 mg/dL (65-105); Lipase 23 U/L (23-300); Potassium 3.7 mmol/L (3.4-5.0); Sodium 138 mmol/L (137-145)
[2020-07-20 14:57] LABS: Alanine Aminotransferase < 4 U/L (4-35)
--- NOTE | 2020-07-20 16:10 | PC.NURSE ---
Patient oxygen level on 2 Li nc dropped to 86% while sleeping, Dr. Gonzalez notified.
[2020-07-20 16:34] LABS: Alveolar/Arterial O2 Gradient 76.4 mmHg; Base Excess ABG -3.2 mEq/l (+/-2.0); Carboxyhemoglobin 0.5 % THb (0-2.0); Fractional Inspired Oxygen 36 %; HCO3 ABG 25.6 mEq/l (22.0-26.0); Methemoglobin ABG 0.4 %THb (0-1.5); Oxygen Saturation ABG 96.3 % (95.0-100.0); Oxyhemoglobin 94.8 % THb (90.0-100.0); PO2 FiO2 Ratio Arterial Blood 2.86 %; Reduced Hemoglobin 4.3 %THb (0-5.0); Total Hemoglobin 10.4 g/dL (12.0-18.0)
[2020-07-20 16:35] LABS: Device NASAL CANNULA; Modified Allen's Test Pass; PCO2 ABG 66.6 mmHg (35.0-45.0); Site Drawn LEFT RADIAL; pH ABG 7.202 (7.350-7.450)
[2020-07-20 17:49] LABS: Alveolar/Arterial O2 Gradient 48.7 mmHg; Carboxyhemoglobin 0.6 % THb (0-2.0); Fractional Inspired Oxygen 30 %; HCO3 ABG 26.5 mEq/l (22.0-26.0); Methemoglobin ABG 0.4 %THb (0-1.5); Oxygen Content ABG 15.8 %vol (16.0-22.0); Oxygen Saturation ABG 95.1 % (95.0-100.0); Oxyhemoglobin 93.2 % THb (90.0-100.0); PO2 ABG 89.9 mmHg (80.0-100.0); Reduced Hemoglobin 5.8 %THb (0-5.0)
[2020-07-20 17:51] LABS: Device NON-INVASIVE VENT; Modified Allen's Test Pass; PCO2 ABG 64.1 mmHg (35.0-45.0); Site Drawn LEFT RADIAL; pH ABG 7.235 (7.350-7.450)
[2020-07-20 17:52] LABS: Non-Invasive Expiratory Pressure 6 CMH2O; Non-Invasive Inspiratory Pressure 16 CMH2O; Non-Invasive Vent Rate 12 /MIN
--- NOTE | 2020-07-20 19:11 | ADMGEN ---
This patient, Trina Larkin, was admitted to Intensive Care Unit-8. Patient/family oriented to hospital policies and general routines including ID bracelet, bed and alarms, visiting hours, pain management, procedures, bathroom and other care routines, personal items, smoking policy, room service/diet, and visiting hours. Valuables list has been completed. Information on how to activate the Rapid Response Team has been discussed. Patient/Family are encouraged to report perceived risks to care and to ask questions if they do not understand what they are told or what they should do.
--- NOTE | 2020-07-20 19:35 | PM.IMHP ---
H&P: HPI History of Present Illness Date/Time: 07/20/20 19:35 Chief complaint: desaturated at the [place] Narrative: This is a 69 year old female Who has a history of chronic diastolic congestive heart failure w/ EF of 55% who presented from the halfway secondary to low oxygen sats and well known to our hospitalist service for multiple admissions for the same reason. The patient has been getting treatment for T4 MSSA discitis via PICC line and was recently also diagnosed with an ileus. She reports that she has no back pain and that she had diarrhea yesterday and today. While at the [place] today the patient was found to have a low oxygen saturation although she did not have any significant shortness of breath and she was sent to the hospital for evaluation. She denies any worsening LE swelling, fevers, chills, cough, wheezing, chest pain, abdominal pain, dysuria, hematuria, rectal bleeding, or focal neurological deficits. The patient recently tested negative for COVID-19 last week when she was hospitalized and she again was swabbed for COVID-19 in the ER tonight. ABG was obtained which demonstrated hypercapnic respiratory failure and the patient was initiated on Bipap. CXR was suspicious for pneumonia and the patient was initiated on IV antibiotics for possible pneumonia? Review of Systems Review of Systems: All systems reviewed & are unremarkable except as noted in HPI and below PMFSH Past Medical History Medical History Atrial fibrillation Congestive heart failure DVT (deep venous thrombosis) on Eliquis Hypertension Left humeral fracture Morbid obesity Sepsis due to methicillin susceptible Staphylococcus aureus (MSSA) with acute hypercapnic respiratory failure Stable burst fracture of t5-T6 vertebra, initial encounter for closed fracture Venous stasis dermatitis Surgical History Surgical History H/O hernia repair Ventral S/P appendectomy Family History Family History Sibling Esophagus cancer brother Liver disease brother Heart disease sister Father Heart disease Diabetes mellitus Hypertension Mother Heart disease Hypertension Social History Social History Social History: The patient is . She has 3 sons and 2 daughters. She lives at [facility]. She was independent prior to this fracture. She used to smoke and quit over 30 years ago. Patient is a full code. 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 No alcohol marijuana or illicit drugs. Smoking status: Former smoker Tobacco type: cigarettes Second hand tobacco smoke exposure: No Alcohol intake: unknown Substance use: never Substance use type: does not use Gender identity (if verbalized by the patient): Female Spiritual care concerns: No Agree to blood products: Yes Meds Home Medications and Allergies Home Medications Medication Instructions Recorded Confirmed Type Eliquis 5 mg PO BID 02/12/20 07/20/20 History acetaminophen 650 mg PO Q4H PRN 02/12/20 07/20/20 History cholecalciferol (vitamin D3) 25 mcg PO DAILY 02/12/20 07/20/20 History ferrous sulfate 325 mg PO DAILY 02/12/20 07/20/20 History polyethylene glycol 3350 17 g PO DAILY #0 ea 03/11/20 07/20/20 Rx albuterol sulfate [Ventolin HFA] 2 puff INHALATION Q6H PRN 03/28/20 07/20/20 History atorvastatin 10 mg PO QPM 03/28/20 07/20/20 History cyclobenzaprine 5 mg PO PRN PRN 03/28/20 07/20/20 History gabapentin 300 mg PO HS 06/10/20 07/20/20 History metoprolol tartrate 12.5 mg PO Q12H 06/10/20 07/20/20 History multivitamin 1 tablet PO DAILY 06/10/20 07/20/20 History simvastatin 20 mg PO HS 06/10/20 07/20/20 History spironolactone 25 mg PO DAILY 06/10/20 07/20/20 History diltiazem HCl 120 mg PO QAM #30 cap
[2020-07-20 21:17] LABS: Alveolar/Arterial O2 Gradient 42.8 mmHg; Base Excess ABG 0.8 mEq/l (+/-2.0); Fractional Inspired Oxygen 30 %; HCO3 ABG 28.9 mEq/l (22.0-26.0); Oxygen Content ABG 14.4 %vol (16.0-22.0); Oxyhemoglobin 94.9 % THb (90.0-100.0); PO2 ABG 94.8 mmHg (80.0-100.0); PO2 FiO2 Ratio Arterial Blood 3.16 %; Total Hemoglobin 10.7 g/dL (12.0-18.0)
[2020-07-20 21:18] LABS: PCO2 ABG 64.9 mmHg (35.0-45.0); pH ABG 7.266 (7.350-7.450)
[2020-07-20 21:20] LABS: Device BIPAP; Expiratory Pressure 6 cmH2O; Inspiratory Pressure 20 cmH2O; Modified Allen's Test Pass; Site Drawn LEFT RADIAL
[2020-07-20] MEDS: TOLNAFTATE 1% POWDER 45 GM BTL 1 APPLIC TOPICAL (22:49)
[2020-07-20] MEDS: ceFAZolin 2 GM/D5W 50 ML 2 GM/50 ML BAG IVPB (23:25)
[2020-07-21] VITALS (16 sets, daily range): BP systolic 106–130; BP diastolic 68–95; PULSE 77–108; RESP 14–22; TEMP 36.7–37.2; O2SAT 93–100
[2020-07-21 04:05] LABS: Alveolar/Arterial O2 Gradient 59.9 mmHg; Base Excess ABG 1.7 mEq/l (+/-2.0); Carboxyhemoglobin 0.3 % THb (0-2.0); Fractional Inspired Oxygen 30 %; HCO3 ABG 28.3 mEq/l (22.0-26.0); Methemoglobin ABG 0.5 %THb (0-1.5); Oxygen Content ABG 12.8 %vol (16.0-22.0); Oxyhemoglobin 94.7 % THb (90.0-100.0); PCO2 ABG 55.6 mmHg (35.0-45.0); PO2 ABG 88.7 mmHg (80.0-100.0); PO2 FiO2 Ratio Arterial Blood 2.96 %; Reduced Hemoglobin 4.5 %THb (0-5.0); Total Hemoglobin 9.5 g/dL (12.0-18.0); pH ABG 7.325 (7.350-7.450)
[2020-07-21 04:08] LABS: Device BIPAP; Modified Allen's Test Pass; Site Drawn LEFT RADIAL
[2020-07-21 04:09] LABS: Expiratory Pressure 6 cmH2O; Inspiratory Pressure 20 cmH2O
[2020-07-21] MEDS: ceFAZolin 2 GM/D5W 50 ML 2 GM/50 ML BAG IVPB ×3 (05:41→21:48)
--- NOTE | 2020-07-21 07:52 | WPDGICN ---
Assessment and Plan Assessment and plan (1) Ileus: Code(s): K56.7 - Ileus, unspecified Status: Resolved Assessment and Plan: Ileus appears to be improving. Manifested by passage of stool today. Would plan to monitor obstructive series. Continue NG tube for another day. She may benefit from promotility agent such as Reglan. Etiology of ileus is likely related to her comorbid diseases. With obesity. Chronic lung disease. Bed rest. Electrolyte imbalance. All contributing to her ileus. Supportive care is advised for now. And monitor clinically Dr. Arreaga will return on Wednesday and resume care. (2) CHF (congestive heart failure): Qualifiers: Heart failure chronicity: acute on chronic Heart failure type: diastolic Qualified Code(s): I50.33 - Acute on chronic diastolic (congestive) heart failure Code(s): I50.9 - Heart failure, unspecified Status: Acute (3) Discitis of thoracic region: Code(s): M46.44 - Discitis, unspecified, thoracic region Status: Chronic (4) Acute and chronic respiratory failure ([id number]): Qualifiers: Respiratory failure complication: hypercapnia Qualified Code(s): J96.22 - Acute and chronic respiratory failure with hypercapnia Code(s): J96.20 - Acute and chronic respiratory failure, unspecified whether with hypoxia or hypercapnia Status: Acute (5) Hypertension: Qualifiers: Hypertension type: essential hypertension Qualified Code(s): I10 - Essential (primary) hypertension Code(s): I10 - Essential (primary) hypertension Status: Chronic GI Consult Note Consult date/time: 07/21/20 07:52 HPI: Trina Larkin is a 70 year old female Seen in evaluation at the request of the emergency room. Patient has been followed by Dr. Arreaga. patient presented to the emergency room in transfer from senior living. Was felt to have duct abdominal ileus. Patient recently hospitalized in discharge within the week. During that hospital stay patient also had ileus. She was treated for congestive heart failure sepsis atrial fibrillation hypertension and chronic anemia. Patient reports increasing abdominal girth bloating distention lack of bowel movement. Overnight she was admitted to the IMU period and passed several stools. She is feeling somewhat improved this morning. Patient has a past history of disc itis. Has a PICC line in place for chronic antibiotic use. She has had some nausea but no recent vomiting. She denies having had a fever recently. Review of Systems Review of Systems: All systems reviewed & are unremarkable except as noted in HPI and below PMFSH Past Medical History Medical History Atrial fibrillation Congestive heart failure DVT (deep venous thrombosis) on Eliquis Hypertension Left humeral fracture Morbid obesity Sepsis due to methicillin susceptible Staphylococcus aureus (MSSA) with acute hypercapnic respiratory failure Stable burst fracture of t5-T6 vertebra, initial encounter for closed fracture Venous stasis dermatitis Surgical History Surgical History H/O hernia repair Ventral S/P appendectomy Family History Family History Sibling Esophagus cancer brother Liver disease brother Heart disease sister Father Heart disease Diabetes mellitus Hypertension Mother Heart disease Hypertension Social History Social History Social History: The patient is . She has 3 sons and 2 daughters. She lives at [facility]. She was independent prior to this fracture. She used to smoke and quit over 30 years ago. Patient is a full code. 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 No alcohol shayyjumitchel
[2020-07-21] MEDS: TOLNAFTATE 1% POWDER 45 GM BTL 1 APPLIC TOPICAL ×2 (08:14→20:01)
--- NOTE | 2020-07-21 08:46 | WPDCNINT ---
Assessment and Plan Assessment and plan (1) Acute and chronic respiratory failure ([id number]): Qualifiers: Respiratory failure complication: hypercapnia Qualified Code(s): J96.22 - Acute and chronic respiratory failure with hypercapnia Code(s): J96.20 - Acute and chronic respiratory failure, unspecified whether with hypoxia or hypercapnia Status: Acute Assessment and Plan: patient presented from the alf with decreased O2 sats, was found to have hypercapnic respiratory failure - patient was placed on BiPAP with improvement in pCO2 and pH this morning - patient complained of some nausea, BiPAP was discontinued and patient currently on 1 L oxygen via nasal cannula with 98-100% O2 sats - possible pneumonia, started on azithromycin, patient already on Ancef - chest x-ray and ABGs reviewed - BiPAP as tolerated and p.r.n. (2) Ileus: Code(s): K56.7 - Ileus, unspecified Status: Resolved Assessment and Plan: CT scan of the abdomen showed persistent ileus, patient did have bowel movements x2 since admission. - Continue NG tube to low intermittent suction - appreciate GI evaluation and recommendation, started on Reglan - continue to maintain normal electrolytes (3) CAP (community acquired pneumonia): Qualifiers: Laterality: unspecified laterality Qualified Code(s): J18.9 - Pneumonia, unspecified organism Code(s): J18.9 - Pneumonia, unspecified organism Status: Ruled-out Assessment and Plan: chest x-ray showed possible pneumonia, white blood cell count is normal, afebrile - patient is already on Ancef for her diskitis. Azithromycin was started in the ER, will continue - currently on 1 L oxygen (4) Suspected COVID-19 virus infection: Code(s): R68.89 - Other general symptoms and signs Status: Ruled-out Assessment and Plan: patient from a alf, has been swabbed for SARS-CoV-2 PCR to rule out COVID-19 which is pending - currently on airborne, droplet and contact isolation/precautions (5) Atrial fibrillation: Qualifiers: Atrial fibrillation type: unspecified chronic Qualified Code(s): I48.20 - Chronic atrial fibrillation, unspecified Code(s): I48.91 - Unspecified atrial fibrillation Status: Chronic Assessment and Plan: history of atrial fibrillation on Eliquis - currently rate controlled - continue metoprolol and diltiazem (6) Bacteremia due to methicillin susceptible Staphylococcus aureus (MSSA): Code(s): R78.81 - Bacteremia; B95.61 - Methicillin susceptible Staphylococcus aureus infection as the cause of diseases classified elsewhere Status: Acute Assessment and Plan: patient with recent MSSA bacteremia, likely diskitis - on Ancef via PICC line (7) Hypertension: Qualifiers: Hypertension type: essential hypertension Qualified Code(s): I10 - Essential (primary) hypertension Code(s): I10 - Essential (primary) hypertension Status: Chronic Assessment and Plan: essential hypertension, continue metoprolol and diltiazem (8) DVT (deep venous thrombosis): Qualifiers: DVT location: lower extremity Affected thrombotic vein of extremity: unspecified vein of extremity Chronicity: chronic Laterality: unspecified laterality Qualified Code(s): I82.509 - Chronic embolism and thrombosis of unspecified deep veins of unspecified lower extremity Code(s): I82.409 - Acute embolism and thrombosis of unspecified deep veins of unspecified lower extremity Status: Chronic Assessment and Plan: continue Eliquis (9) CHF (congestive heart failure): Qualifiers: Heart failure chronicity: acute on chronic Heart failure type: diastolic Qualified Code(s): I50.33 - Acute on chronic diastolic (congestive) heart failure Code(s): I50.9 - Heart failure, unspecified Status: Acute Assessment and
[2020-07-21] MEDS: POTASSIUM CHLORIDE 20 MEQ TABLET.ER 40 MEQ PO ×2 (08:51→17:05)
[2020-07-21] MEDS: MAGNESIUM OXIDE 400 MG TABLET PO (08:52)
[2020-07-21] MEDS: APIXABAN 5 MG TABLET PO ×2 (08:52→17:05)
[2020-07-21] MEDS: METOPROLOL TARTRATE 12.5 MG TABLET PO ×2 (08:52→20:01)
[2020-07-21] MEDS: DOCUSATE SODIUM 100 MG CAPSULE PO (08:52)
[2020-07-21] MEDS: MULTIVITAMINS THERAPEUTIC TAB (*BKC) 1 TABLET PO (08:52)
[2020-07-21] MEDS: FUROSEMIDE 80 MG TABLET PO (08:52)
[2020-07-21] MEDS: FERROUS SULFATE 324 MG TABLET PO (08:52)
[2020-07-21] MEDS: SACCHAROMYCES BOULARDII 250 MG CAPSULE PO ×2 (08:53→17:05)
[2020-07-21] MEDS: SPIRONOLACTONE 25 MG TABLET PO (08:53)
[2020-07-21] MEDS: polyethylene glycoL 3350 17 GM POWD.PACK PO (08:53)
[2020-07-21] MEDS: METOCLOPRAMIDE HCL INJ 10 MG/2 ML VIAL 5 MG IV PUSH ×2 (10:27→17:05)
--- NOTE | 2020-07-21 16:29 | PM.IMPN ---
Progress Note: A&P Assessment and Plan (1) Acute and chronic respiratory failure ([id number]-[id number]): Qualifiers: Respiratory failure complication: hypercapnia Qualified Code(s): J96.22 - Acute and chronic respiratory failure with hypercapnia Code(s): J96.20 - Acute and chronic respiratory failure, unspecified whether with hypoxia or hypercapnia Status: Acute Assessment and Plan: The patient has been admitted to IMU and started on IV azithromycin with her Ancef she is already taking for presumed pneumonia? . The patient denies any fever, cough, or other symptoms of pneumonia. She apparently desaturated at detention although there is no ABG to demonstrate any significant hypoxemia? The patient's CXR actually looks better compared to her previous hospitalization. Continue Bipap support HS and p.r.n.. Monitior ABG. Bronchodilators. RT assess and treat. (2) Ileus: Code(s): K56.7 - Ileus, unspecified Status: Resolved Assessment and Plan: The patient reports having diarrhea yesterday and today. it seemed to have sided now (3) CHF (congestive heart failure): Qualifiers: Heart failure chronicity: acute on chronic Heart failure type: diastolic Qualified Code(s): I50.33 - Acute on chronic diastolic (congestive) heart failure Code(s): I50.9 - Heart failure, unspecified Status: Acute Assessment and Plan: Monitor fluid status. Is and Os, daily weights. chronic diastolic and appears to be euvolemic (4) Anemia: Qualifiers: Anemia type: unspecified type Qualified Code(s): D64.9 - Anemia, unspecified Code(s): D64.9 - Anemia, unspecified Status: Acute Assessment and Plan: hemoglobin actually higher than had been previously at high at 9.5, continue to observe (5) Suspected COVID-19 virus infection: Code(s): R68.89 - Other general symptoms and signs Status: Ruled-out Assessment and Plan: The patient was swabbed again for COVID-19. Droplet isolation, Supportive care. COVID-19 results pending. low index of suspicion. COVID testing weekly at the nursing facility (6) Atrial fibrillation: Qualifiers: Atrial fibrillation type: unspecified chronic Qualified Code(s): I48.20 - Chronic atrial fibrillation, unspecified Code(s): I48.91 - Unspecified atrial fibrillation Status: Chronic Assessment and Plan: Continue metoprolol, eliquis. with controlled ventricular response (7) Hypertension: Qualifiers: Hypertension type: essential hypertension Qualified Code(s): I10 - Essential (primary) hypertension Code(s): I10 - Essential (primary) hypertension Status: Chronic Assessment and Plan: blood pressure well controlled Continue metoprolol. (8) Discitis of thoracic region: Code(s): M46.44 - Discitis, unspecified, thoracic region Status: Chronic Assessment and Plan: Continue IV ancef. through 08/02 per ID Subjective Date/time seen: 07/21/20 16:29 Interval history: date of visit 07/21. 70-year-old white female with T-spine diskitis on 6 week course of antibiotics presented to the hospital with decreased O2 saturation and abdominal bloating. Mild respiratory failure as had been in the past and has responded to BiPAP. Ileus on exam and CT findings which has resolved with NG suction hand having had 2 BMs today.. Had some ileus during her last admission also on seen by GI. At present time she feels much better with NG still in place Exam Narrative: Exam Narrative: blood pressure 120/76 pulse is 84 irregular sat 100% on 1 L nasal cannula afebrile pupils equal and reactive to light sclera anicteric NG in place lungs distant breath sounds no areas a wheezing or consolidation CV irregular as before rate controlled abdomen is still slightly distended bowel sounds are present extremities without edema dorsalis pedis posterior
[2020-07-21] MEDS: ATORVASTATIN 10 MG TABLET PO (17:05)
[2020-07-21] MEDS: GABAPENTIN 300 MG CAPSULE PO (20:01)
[2020-07-22] VITALS (13 sets, daily range): BP systolic 103–141; BP diastolic 69–93; PULSE 75–103; RESP 16–22; TEMP 36.2–37.2; O2SAT 95–100
[2020-07-22] MEDS: METOCLOPRAMIDE HCL INJ 10 MG/2 ML VIAL 5 MG IV PUSH ×4 (00:46→17:41)
[2020-07-22] MEDS: ceFAZolin 2 GM/D5W 50 ML 2 GM/50 ML BAG IVPB ×3 (05:22→22:25)
[2020-07-22 05:47] LABS: Anion Gap 5 mmol/L (8-16); Blood Urea Nitrogen 8 mg/dL (7-17); Calcium 9.5 mg/dL (8.4-10.2); Carbon Dioxide 38 mmol/L (22-30); Chloride 98 mmol/L (98-107); Estimated CRCL calculation 104 ml/min; Estimated Glomerular Filt Rate > 60; Glucose 101 mg/dL (65-105); Magnesium 1.6 mg/dL (1.6-2.3); Phosphorus 4.2 mg/dL (2.5-4.5); Potassium 2.8 mmol/L (3.4-5.0); Sodium 141 mmol/L (137-145)
[2020-07-22] MEDS: METOPROLOL TARTRATE 12.5 MG TABLET PO ×2 (07:41→20:16)
[2020-07-22] MEDS: SACCHAROMYCES BOULARDII 250 MG CAPSULE PO ×2 (07:41→17:37)
[2020-07-22] MEDS: APIXABAN 5 MG TABLET PO ×2 (07:41→17:37)
[2020-07-22] MEDS: TOLNAFTATE 1% POWDER 45 GM BTL 1 APPLIC TOPICAL ×2 (07:42→20:16)
[2020-07-22] MEDS: POTASSIUM CHLORIDE 20 MEQ TABLET.ER 40 MEQ PO ×2 (07:42→17:37)
[2020-07-22] MEDS: DOCUSATE SODIUM 100 MG CAPSULE PO (07:42)
[2020-07-22] MEDS: SPIRONOLACTONE 25 MG TABLET PO (07:42)
[2020-07-22] MEDS: MULTIVITAMINS THERAPEUTIC TAB (*BKC) 1 TABLET PO (07:42)
[2020-07-22] MEDS: FERROUS SULFATE 324 MG TABLET PO (07:42)
[2020-07-22] MEDS: MAGNESIUM OXIDE 400 MG TABLET PO (07:42)
[2020-07-22] MEDS: FUROSEMIDE 80 MG TABLET PO (07:42)
[2020-07-22 10:37] LABS: Basophils Percent Auto 0.4 % (0.2-1.2); Eosinophils Absolute Auto 0.1 K/mm3 (0-0.3); Eosinophils Percent Auto 1.7 % (0-4.4); Hematocrit 28.3 % (37.0-47.0); Hemoglobin 8.4 g/dL (12.0-15.0); Immature Granulocyte Absolute 0.03 K/mm3 (0.00-0.031); Immature Granulocyte Percent A 0.4 % (0-0.5); Lymphocytes Absolute Auto 0.79 K/mm3 (0.9-3.2); Lymphocytes Percent Auto 10.4 % (18.3-44.2); Mean Corpuscular HGB Conc 29.7 g/dl (32-36); Mean Corpuscular Hemoglobin 29.2 pg (26-34); Mean Corpuscular Volume 98.3 fl (80-100); Mean Platelet Volume 9.1 fl (7.4-10.4); Monocytes Absolute Auto 0.8 K/mm3 (0.1-0.6); Monocytes Percent Auto 9.8 % (2.6-8.5); Neutrophils Absolute Auto 5.9 K/mm3 (1.3-6.7); Neutrophils Percent Auto 77.3 % (45.5-73.1); Platelet Count Result 317 k/mm3 (150-375); Red Blood Count 2.88 M/mm3 (4.2-5.4); Red Cell Distribution Width 14.9 % (11.5-14.5); White Blood Count 7.6 K/mm3 (4.5-10.0)
[2020-07-22 11:17] LABS: Hypochromasia 1+ (NORMAL); Platelet Estimate Adequate (Adequate)
[2020-07-22 11:18] LABS: Anisocytosis 1+ (NORMAL); Stomatocytes 1+ (NORMAL)
[2020-07-22 12:40] LABS: Potassium 3.1 mmol/L (3.4-5.0)
[2020-07-22 13:06] LABS: SARS-CoV-2 RNA PCR Negative
--- NOTE | 2020-07-22 13:48 | PM.IMPN ---
Progress Note: A&P Assessment and Plan (1) Acute and chronic respiratory failure ([id number]): Qualifiers: Respiratory failure complication: hypercapnia Qualified Code(s): J96.22 - Acute and chronic respiratory failure with hypercapnia Code(s): J96.20 - Acute and chronic respiratory failure, unspecified whether with hypoxia or hypercapnia Status: Acute Assessment and Plan: The patient has been admitted to IMU and started on IV azithromycin with her Ancef she is already taking for presumed pneumonia? . The patient denies any fever, cough, or other symptoms of pneumonia. She apparently desaturated at [facility] although there is no ABG to demonstrate any significant hypoxemia? The patient's CXR actually looks better compared to her previous hospitalization. Continue Bipap support HS and p.r.n.. Monitior ABG. Bronchodilators. RT assess and treat. (2) Ileus: Code(s): K56.7 - Ileus, unspecified Status: Resolved Assessment and Plan: The patient reports having diarrhea yesterday and today. - abdominal obstructive series continues to show dilated bowel loops with adynamic ileus - await GI evaluation (3) CHF (congestive heart failure): Qualifiers: Heart failure chronicity: acute on chronic Heart failure type: diastolic Qualified Code(s): I50.33 - Acute on chronic diastolic (congestive) heart failure Code(s): I50.9 - Heart failure, unspecified Status: Acute Assessment and Plan: Monitor fluid status. Is and Os, daily weights. chronic diastolic and appears to be euvolemic (4) Anemia: Qualifiers: Anemia type: unspecified type Qualified Code(s): D64.9 - Anemia, unspecified Code(s): D64.9 - Anemia, unspecified Status: Acute Assessment and Plan: hemoglobin is stable and at baseline, continue to monitor (5) Suspected COVID-19 virus infection: Code(s): R68.89 - Other general symptoms and signs Status: Ruled-out Assessment and Plan: SARS-CoV-2 PCR negative on 07/21/2020 will discontinue Droplet isolation COVID testing weekly at the nursing facility (6) Atrial fibrillation: Qualifiers: Atrial fibrillation type: unspecified chronic Qualified Code(s): I48.20 - Chronic atrial fibrillation, unspecified Code(s): I48.91 - Unspecified atrial fibrillation Status: Chronic Assessment and Plan: Continue metoprolol, eliquis. with controlled ventricular response (7) Hypertension: Qualifiers: Hypertension type: essential hypertension Qualified Code(s): I10 - Essential (primary) hypertension Code(s): I10 - Essential (primary) hypertension Status: Chronic Assessment and Plan: blood pressure well controlled Continue metoprolol. (8) Discitis of thoracic region: Code(s): M46.44 - Discitis, unspecified, thoracic region Status: Chronic Assessment and Plan: Continue IV ancef. through 08/02 per ID Additional Plan discussed with patient and updated her with her condition and plan of care. Code status: Full code Due to a high probability of clinically significant, life threatening deterioration, the patient required my highest level of preparedness to intervene emergently and I personally spent this critical care time directly and personally managing the patient. This critical care time included obtaining a history; examining the patient; pulse oximetry; ordering and review of studies; arranging urgent treatment with development of a management plan; evaluation of patient's response to treatment; frequent reassessment; and discussions with other providers. It was exclusive of separately billable procedures and treating other patients and teaching time. Please see Assessment and Plan section and the rest of the note for further information on patient assessment and treatment Subjective Date/time seen: 07/22/20 13:48 I
[2020-07-22] MEDS: CENTRAL LINE FLUSH 10 ML IV PUSH ×2 (14:08→22:26)
--- NOTE | 2020-07-22 16:05 | WPDGIPROGNO ---
Progress Note: A&P Additional Plan Patient less short of breath today. Reports having diarrhea after several more solid stools. Physical exam reveals abdomen to be softer. Still obese. No localized tenderness. Impression 1. Resolving ileus. KUB still reason reveal some distended loops of bowel. Plan is to discontinue NG tube tomorrow. Continue IV Reglan for now change to oral medication when diet tolerated. Hopefully start diet tomorrow if all agree. 2. Respiratory difficulties. COVID is negative once again continue supportive care for now.. 3. Atrial fibrillation. 4. Diskitis. Patient remains on antibiotics. PICC line in place. Subjective Date/time seen: 07/22/20 16:05 Objective Data Vital Signs Vital Signs: Vital Signs - 24 hr 07/21/20 20:00 07/21/20 20:01 07/21/20 21:04 Temperature 98.9 F Pulse Rate 84 91 Respiratory Rate 21 H Blood Pressure 130/83 Pulse Oximetry 100 96 07/22/20 00:00 07/22/20 00:15 07/22/20 04:00 Temperature 98.6 F Pulse Rate 79 96 78 Respiratory Rate 19 20 17 Blood Pressure 141/93 H 115/75 Pulse Oximetry 96 100 100 07/22/20 04:45 07/22/20 07:40 07/22/20 07:41 Temperature Pulse Rate 99 84 Respiratory Rate 20 Blood Pressure Pulse Oximetry 98 100 07/22/20 08:00 07/22/20 08:15 07/22/20 10:00 Temperature 97.1 F L Pulse Rate 102 H Respiratory Rate 22 H Blood Pressure 103/80 Pulse Oximetry 97 100 98 Intake/Output Intake/Output: Intake & Output 07/19/20 07/20/20 07/21/20 07/22/20 23:59 23:59 23:59 23:59 Intake Total 1350 850 890 Output Total 926 4130 975 Balance 490 -9044 -98 Meds/Results Medications: Active Medications Generic Name Dose Route Start Last Admin Trade Name Freq PRN Reason Stop Dose Admin Albuterol 2 puff 07/20/20 20:34 Proventil Hfa INHALATION Q6H PRN Shortness Of Breath Apixaban 5 mg 07/21/20 09:00 07/22/20 07:41 Eliquis PO 5 mg BID DEWAYNE Administration Atorvastatin Calcium 10 mg 07/21/20 18:00 07/21/20 17:05 Lipitor PO 10 mg QPM DEWAYNE Administration Diltiazem HCl 120 mg 07/21/20 09:00 07/22/20 07:42 Cardizem Cd PO 120 mg QAM DEWAYNE Administration Docusate Sodium 100 mg 07/21/20 09:00 07/22/20 07:42 Colace Capsule PO 100 mg DAILY DEWAYNE Administration Ferrous Sulfate 324 mg 07/21/20 09:00 07/22/20 07:42 Ferrous Sulfate PO 324 mg DAILY DEWAYNE Administration Furosemide 80 mg 07/21/20 09:00 07/22/20 07:42 Lasix Tablet PO 80 mg DAILY DEWAYNE Administration Gabapentin 300 mg 07/20/20 21:00 07/21/20 20:01 Neurontin PO 300 mg HS DEWAYNE Administration Azithromycin 500 mg in 250 mls @ 250 mls/hr 07/21/20 16:00 07/21/20 15:38 Zithromax IVPB Infused Q24H DEWAYNE Infusion Cefazolin Sodium 2 gm in 50 mls @ 100 mls/hr 07/20/20 22:15 07/22/20 14:08 Ancef 2 Gm/D5w 50 Ml IVPB 100 mls/hr Q8HR DEWAYNE Administration Magnesium Oxide 400 mg 07/21/20 09:00 07/22/20 07:42 Mag-Ox PO 400 mg QAM DEWAYNE Administration Metoclopramide HCl 5 mg 07/21/20 12:00 07/22/20 12:20 Reglan IV PUSH 5 mg Q6HR DEWAYNE Administration Metoprolol Tartrate 12.5 mg 07/20/20 21:00 07/22/20 07:41 Lopressor PO 12.5 mg Q12HR DEWAYNE Administration Miconazole Nitrate 1 applic 07/21/20 09:00 07/22/20 07:42 [place]oe [place] TOPICAL 1 applic Q12HR DEWAYNE Administration Multivitamins Therapeutic 1 tablet 07/21/20 09:00 07/22/20 07:42 Multivitamins Therapeutic(*Bkc PO 1 tablet DAILY DEWAYNE Administration Polyethylene Glycol 17 gm 07/21/20 09:00 07/22/20 11:04 Miralax PO Not Given DAILY DEWAYNE Potassium Chloride 40 meq 07/21/20 08:00 07/22/20 07:42 Kcl Tablet PO 40 meq BIDWM DEWAYNE Administration Saccharomyces Boulardii 250 mg 07/21/20 09:00 07/22/20 07:41 Florastor PO 250 mg BID DEWAYNE Administration Sodium Chloride 1 spray 07/20/20 20:35 [place] Nasal [place] NASAL PRN PRN
[2020-07-22] MEDS: ATORVASTATIN 10 MG TABLET PO (17:37)
[2020-07-22] MEDS: GABAPENTIN 300 MG CAPSULE PO (20:17)
[2020-07-23] VITALS (9 sets, daily range): BP systolic 116–137; BP diastolic 63–86; PULSE 85–99; RESP 16–23; TEMP 36.1–36.8; O2SAT 89–100
[2020-07-23] MEDS: METOCLOPRAMIDE HCL INJ 10 MG/2 ML VIAL 5 MG IV PUSH ×4 (00:09→17:07)
[2020-07-23] MEDS: ceFAZolin 2 GM/D5W 50 ML 2 GM/50 ML BAG IVPB ×3 (05:25→21:41)
[2020-07-23] MEDS: CENTRAL LINE FLUSH 10 ML IV PUSH ×3 (05:26→21:42)
--- NOTE | 2020-07-23 06:20 | PC.NURSE ---
This patient, Trina Larkin, was received from [ ICU ] on 07/23/20 at 0620. Personal belongings list checked and signed. Patient/family oriented to unit policies and routines
--- NOTE | 2020-07-23 06:29 | PC.NURSE ---
This patient, Trina Larkin, was transferred to [ [facility]] on 07/23/20 at 0629. Personal belongings sent with patient. Belongings list checked and signed with receiving [RN ]. Report given to [Leatha ]. Appropriate documentation sent with patient.
[2020-07-23] MEDS: TOLNAFTATE 1% POWDER 45 GM BTL 1 APPLIC TOPICAL ×2 (09:00→21:41)
[2020-07-23] MEDS: APIXABAN 5 MG TABLET PO ×2 (09:00→17:06)
[2020-07-23] MEDS: MAGNESIUM OXIDE 400 MG TABLET PO (09:00)
[2020-07-23] MEDS: POTASSIUM CHLORIDE 20 MEQ TABLET.ER 40 MEQ PO ×2 (09:00→17:06)
[2020-07-23] MEDS: polyethylene glycoL 3350 17 GM POWD.PACK PO (09:00)
[2020-07-23] MEDS: MULTIVITAMINS THERAPEUTIC TAB (*BKC) 1 TABLET PO (09:01)
[2020-07-23] MEDS: DOCUSATE SODIUM 100 MG CAPSULE PO (09:01)
[2020-07-23] MEDS: SACCHAROMYCES BOULARDII 250 MG CAPSULE PO ×2 (09:01→17:06)
[2020-07-23] MEDS: METOPROLOL TARTRATE 12.5 MG TABLET PO ×2 (09:01→21:41)
[2020-07-23] MEDS: FERROUS SULFATE 324 MG TABLET PO (09:01)
[2020-07-23] MEDS: SPIRONOLACTONE 25 MG TABLET PO (09:01)
[2020-07-23] MEDS: FUROSEMIDE 80 MG TABLET PO (09:01)
--- NOTE | 2020-07-23 16:36 | WPDGIPROGNO ---
Progress Note: A&P Assessment and Plan (1) Ileus: Code(s): K56.7 - Ileus, unspecified Status: Resolved Assessment and Plan: she is having BM's and no abdominal pain but abdomen still distended with large gastric output. Will keep NGT another day and continue with reglan she is having ice chips. probably multifactorial (hypokalemia, obesity, poor mobility, recent sepsis, etc) (2) Acute and chronic respiratory failure ([id number]): Qualifiers: Respiratory failure complication: hypercapnia Qualified Code(s): J96.22 - Acute and chronic respiratory failure with hypercapnia Code(s): J96.20 - Acute and chronic respiratory failure, unspecified whether with hypoxia or hypercapnia Status: Acute (3) Pneumonia: Code(s): J18.9 - Pneumonia, unspecified organism Status: Acute (4) Discitis of thoracic region: Code(s): M46.44 - Discitis, unspecified, thoracic region Status: Chronic Assessment and Plan: she has been getting abx by ID (5) Hypokalemia: Code(s): E87.6 - Hypokalemia Status: Acute (6) Atrial fibrillation: Qualifiers: Atrial fibrillation type: unspecified chronic Qualified Code(s): I48.20 - Chronic atrial fibrillation, unspecified Code(s): I48.91 - Unspecified atrial fibrillation Status: Chronic Subjective Date/time seen: 07/23/20 16:36 Interval history: patient had 2 BM today and no n/v, she is having ice chips. NGT in place and had about 2.4L output, denies abdominal pain. Review of Systems Review of Systems: All systems reviewed & are unremarkable except as noted in HPI and below Exam Const: General: comfortable and no acute distress HENMT: Other: NG tube in place Eyes: Sclera: sclerae normal Pupils: Equal, round and reactive pupils present Neck: Neck: supple and no JVD Resp: Effort & Inspection: normal respiratory effort Auscultation: rales and diminished lung sounds ( at bases) Cardio: Rhythm: abnormal rhythm irregularly irregular GI: Inspection: distended Auscultation: abnormal bowel sounds ( hypoactive bowel sounds) : Other: Ortega catheter in place Urinary Catheter: Urinary Catheter: patent and draining and urine clear Skin: Other: venous stasis changes on lower extremities Neuro: Cranial nerves: Yes Equal, round and reactive pupils present Other: patient is awake, alert, oriented, nonfocal, follows simple commands and answers to questions appropriately Psych: Mental Status: mental status grossly normal Affect: normal affect Objective Data Vital Signs Vital Signs: Vital Signs - 24 hr 07/22/20 20:16 07/22/20 21:18 07/22/20 21:22 Temperature Pulse Rate 99 103 H 100 Respiratory Rate 20 Blood Pressure Pulse Oximetry 95 99 07/23/20 00:00 07/23/20 01:05 07/23/20 09:01 Temperature 98.3 F Pulse Rate 88 97 Respiratory Rate 20 Blood Pressure 123/77 Pulse Oximetry 89 L 97 07/23/20 09:20 07/23/20 10:03 07/23/20 15:12 Temperature 97.0 F L 97.5 F L Pulse Rate 93 85 92 Respiratory Rate 18 19 20 Blood Pressure 116/85 131/63 Pulse Oximetry 100 96 99 Intake/Output Intake/Output: Intake & Output 07/20/20 07/21/20 07/22/20 07/23/20 23:59 23:59 23:59 23:59 Intake Total 6379 638 4148 790 Output Total 926 0960 2220 1650 Balance 495 -5550 -965 -090 Meds/Results Medications: Active Medications Generic Name Dose Route Start Last Admin Trade Name Freq PRN Reason Stop Dose Admin Albuterol 2 puff 07/20/20 20:34 Proventil Hfa INHALATION Q6H PRN Shortness Of Breath Apixaban 5 mg 07/21/20 09:00 07/23/20 09:00 Eliquis PO 5 mg BID DEWAYNE Administration Atorvastatin Calcium 10 mg 07/21/20 18:00 07/22/20 17:37 Lipitor PO 10 mg QPM DEWAYNE Administration Diltiazem HCl 120 mg 07/21/20 09:00 07/23/20 09:01 Cardizem Cd PO 120 mg QAM DEWAYNE Administration Docusate Sodium 100 mg 07/21/20 09:00
[2020-07-23] MEDS: ATORVASTATIN 10 MG TABLET PO (17:06)
--- NOTE | 2020-07-23 19:16 | PM.IMPN ---
Progress Note: A&P Assessment and Plan (1) Acute and chronic respiratory failure ([id number]): Qualifiers: Respiratory failure complication: hypercapnia Qualified Code(s): J96.22 - Acute and chronic respiratory failure with hypercapnia Code(s): J96.20 - Acute and chronic respiratory failure, unspecified whether with hypoxia or hypercapnia Status: Acute Assessment and Plan: The patient has been admitted to IMU and started on IV antibiotics for presumed pneumonia. Chest x-ray on admission showed right upper and left lower lobe airspace disease. CT scan of the abdomen showing small bilateral pleural effusions with atelectasis. The patient denies any fever, cough, or other symptoms of pneumonia. She apparently desaturated today. ABG did show pH 7.2 with elevated pCO2. May be related to the distended colon which may limit diaphragmatic excursion. The patient's CXR actually looks better compared to her previous hospitalization. Continue Bipap at night and with naps. She states she is compliant with the Trilogy at the [place]. Continue to monitor. Will stop Azithromycin. (2) Ileus: Code(s): K56.7 - Ileus, unspecified Status: Resolved Assessment and Plan: Exam is much improved. Patient passing stool. Need to monitor NG output. Continue IV Reglan. Appreciate GI input. (3) CHF (congestive heart failure): Qualifiers: Heart failure chronicity: acute on chronic Heart failure type: diastolic Qualified Code(s): I50.33 - Acute on chronic diastolic (congestive) heart failure Code(s): I50.9 - Heart failure, unspecified Status: Acute Assessment and Plan: Monitor fluid status. Is and Os, daily weights. (4) Anemia: Qualifiers: Anemia type: unspecified type Qualified Code(s): D64.9 - Anemia, unspecified Code(s): D64.9 - Anemia, unspecified Status: Acute Assessment and Plan: Patient with chronic anemia with a hemoglobin normally running in the 7-8 range. Hemoglobin here is within her baseline. Most likely this is anemia chronic disease related to her chronic ongoing inflammatory state from the infectious process. (5) Suspected COVID-19 virus infection: Code(s): R68.89 - Other general symptoms and signs Status: Ruled-out Assessment and Plan: The patient was swabbed again for COVID-19. COVID test was negative. (6) Atrial fibrillation: Qualifiers: Atrial fibrillation type: unspecified chronic Qualified Code(s): I48.20 - Chronic atrial fibrillation, unspecified Code(s): I48.91 - Unspecified atrial fibrillation Status: Chronic Assessment and Plan: Heart rate is stable. Continue metoprolol, eliquis. (7) Hypertension: Qualifiers: Hypertension type: essential hypertension Qualified Code(s): I10 - Essential (primary) hypertension Code(s): I10 - Essential (primary) hypertension Status: Chronic Assessment and Plan: Patient's blood pressure was reviewed on 07/23 Blood pressure remains well controlled. Will continue current medications. (8) Discitis of thoracic region: Code(s): M46.44 - Discitis, unspecified, thoracic region Status: Chronic Assessment and Plan: Stable Continue IV ancef. Subjective Date/time seen: 07/23/20 19:16 Interval history: date of visit 07/23. 70-year-old white female with T-spine diskitis on 6 week course of antibiotics presented to the hospital with decreased O2 saturation and abdominal bloating. Mild respiratory failure as had been in the past and has responded to BiPAP. She states she is compliant with BiPAP (Trilogy) in the [place]. Had been having normal BMs in the NH as well but brought in due to distended abdomen. She is having increasing output from ngt per RN. She is eatinig a lot of ice chips. She had a BM yesterday and one today. Fels her abd swelling
[2020-07-23] MEDS: GABAPENTIN 300 MG CAPSULE PO (21:41)
[2020-07-24] VITALS (7 sets, daily range): BP systolic 129–136; BP diastolic 66–81; PULSE 70–109; RESP 16–21; TEMP 36.1–37; O2SAT 94–100
[2020-07-24] MEDS: METOCLOPRAMIDE HCL INJ 10 MG/2 ML VIAL 5 MG IV PUSH ×4 (00:55→17:12)
[2020-07-24] MEDS: ceFAZolin 2 GM/D5W 50 ML 2 GM/50 ML BAG IVPB ×3 (05:38→21:05)
[2020-07-24] MEDS: CENTRAL LINE FLUSH 10 ML IV PUSH ×3 (05:39→21:05)
[2020-07-24 05:54] LABS: Hemoglobin 9.6 g/dL (12.0-15.0); Mean Corpuscular Hemoglobin 29.9 pg (26-34); Mean Corpuscular Volume 99.7 fl (80-100); Mean Platelet Volume 9.4 fl (7.4-10.4); Platelet Count Result 317 k/mm3 (150-375); Red Blood Count 3.21 M/mm3 (4.2-5.4); Red Cell Distribution Width 14.9 % (11.5-14.5); White Blood Count 8.2 K/mm3 (4.5-10.0)
[2020-07-24 06:42] LABS: Albumin Level 3.6 g/dL (3.5-5.1); Anion Gap 17.99999 mmol/L (8-16); Blood Urea Nitrogen 14 mg/dL (7-17); Calcium 9.8 mg/dL (8.4-10.2); Carbon Dioxide > 40 mmol/L (22-30); Chloride 84 mmol/L (98-107); Estimated CRCL calculation 103 ml/min; Estimated Glomerular Filt Rate > 60; Glucose 138 mg/dL (65-105); Magnesium 1.9 mg/dL (1.6-2.3); Phosphorus 3.6 mg/dL (2.5-4.5); Potassium 2.6 mmol/L (3.4-5.0); Sodium 142 mmol/L (137-145)
[2020-07-24] MEDS: APIXABAN 5 MG TABLET PO ×2 (08:28→17:12)
[2020-07-24] MEDS: POTASSIUM CHLORIDE 20 MEQ TABLET.ER 40 MEQ PO ×2 (08:28→17:12)
[2020-07-24] MEDS: FERROUS SULFATE 324 MG TABLET PO (08:28)
[2020-07-24] MEDS: SACCHAROMYCES BOULARDII 250 MG CAPSULE PO ×2 (08:28→17:13)
[2020-07-24] MEDS: METOPROLOL TARTRATE 12.5 MG TABLET PO ×2 (08:29→21:02)
[2020-07-24] MEDS: SPIRONOLACTONE 25 MG TABLET PO (08:29)
[2020-07-24] MEDS: MAGNESIUM OXIDE 400 MG TABLET PO (08:29)
[2020-07-24] MEDS: DOCUSATE SODIUM 100 MG CAPSULE PO (08:29)
[2020-07-24] MEDS: MULTIVITAMINS THERAPEUTIC TAB (*BKC) 1 TABLET PO (08:30)
[2020-07-24] MEDS: polyethylene glycoL 3350 17 GM POWD.PACK PO (08:30)
[2020-07-24] MEDS: FUROSEMIDE 80 MG TABLET PO (08:31)
[2020-07-24] MEDS: TOLNAFTATE 1% POWDER 45 GM BTL 1 APPLIC TOPICAL ×2 (08:31→21:02)
--- NOTE | 2020-07-24 11:06 | PM.IMPN ---
Progress Note: A&P Assessment and Plan (1) Acute and chronic respiratory failure ([id number]): Qualifiers: Respiratory failure complication: hypercapnia Qualified Code(s): J96.22 - Acute and chronic respiratory failure with hypercapnia Code(s): J96.20 - Acute and chronic respiratory failure, unspecified whether with hypoxia or hypercapnia Status: Acute Assessment and Plan: The patient was admitted to IMU and started on IV antibiotics for presumed pneumonia. Chest x-ray on admission showed right upper and left lower lobe airspace disease. CT scan of the abdomen showing small bilateral pleural effusions with atelectasis. The patient denies any fever, cough, or other symptoms of pneumonia. ABG did show pH 7.2 with elevated pCO2. May be related to the distended colon which may limit diaphragmatic excursion. The patient's CXR actually looks better compared to her previous hospitalization. Symptoms have improved. Continue Bipap at night and with naps. She states she is compliant with the Trilogy at the [place]. Continue to monitor. (2) Ileus: Code(s): K56.7 - Ileus, unspecified Status: Resolved Assessment and Plan: Exam is much improved. Patient passing stool and gas. Still with considerable NG output. Continue IV Reglan. Appreciate GI input. (3) Hypokalemia: Code(s): E87.6 - Hypokalemia Status: Acute Assessment and Plan: Potassium dificult to replace. Probably related to at least from removal of H+ with the kidney exchanging K+ for H+. On oral and IV replacement. Will continue Spironolactone but stop Lasix. Continue to replace. (4) CHF (congestive heart failure): Qualifiers: Heart failure chronicity: acute on chronic Heart failure type: diastolic Qualified Code(s): I50.33 - Acute on chronic diastolic (congestive) heart failure Code(s): I50.9 - Heart failure, unspecified Status: Acute Assessment and Plan: Negative cumulative fluid balance since admission. Monitor fluid status. Is and Os, daily weights. Hold Lasix. may need IV fluids but so far, renal function okay. (5) Anemia: Qualifiers: Anemia type: unspecified type Qualified Code(s): D64.9 - Anemia, unspecified Code(s): D64.9 - Anemia, unspecified Status: Acute Assessment and Plan: Patient with chronic anemia with a hemoglobin normally running in the 7-8 range. Hemoglobin here is better at 8-9 range. Most likely this is anemia chronic disease related to her chronic ongoing inflammatory state from the infectious process. (6) Atrial fibrillation: Qualifiers: Atrial fibrillation type: unspecified chronic Qualified Code(s): I48.20 - Chronic atrial fibrillation, unspecified Code(s): I48.91 - Unspecified atrial fibrillation Status: Chronic Assessment and Plan: Heart rate is stable. Continue metoprolol, eliquis. (7) Hypertension: Qualifiers: Hypertension type: essential hypertension Qualified Code(s): I10 - Essential (primary) hypertension Code(s): I10 - Essential (primary) hypertension Status: Chronic Assessment and Plan: Patient's blood pressure was reviewed on 07/24 Blood pressure remains well controlled. Will continue current medications. (8) Discitis of thoracic region: Code(s): M46.44 - Discitis, unspecified, thoracic region Status: Chronic Assessment and Plan: Stable Continue IV ancef. (9) Suspected COVID-19 virus infection: Code(s): R68.89 - Other general symptoms and signs Status: Ruled-out Assessment and Plan: The patient was swabbed again for COVID-19. COVID test was negative. Subjective Date/time seen: 07/24/20 11:07 Interval history: Date of visit 07/24. 70-year-old white female with T-spine diskitis on 6 week course of antibiotics presented to the hospital with d
[2020-07-24 12:02] LABS: Potassium 2.8 mmol/L (3.4-5.0)
--- NOTE | 2020-07-24 13:03 | WPDGIPROGNO ---
Progress Note: A&P Assessment and Plan (1) Ileus: Code(s): K56.7 - Ileus, unspecified Status: Resolved Assessment and Plan: abdomen exam less distended today, having BM's and denies nausea will remove NGT, try liquid diet and continue with reglan probably multifactorial (correcting hypokalemia), obesity, poor mobility, recent sepsis, etc (2) Acute and chronic respiratory failure (raxtm-[id number]): Qualifiers: Respiratory failure complication: hypercapnia Qualified Code(s): J96.22 - Acute and chronic respiratory failure with hypercapnia Code(s): J96.20 - Acute and chronic respiratory failure, unspecified whether with hypoxia or hypercapnia Status: Acute (3) Pneumonia: Code(s): J18.9 - Pneumonia, unspecified organism Status: Acute (4) Discitis of thoracic region: Code(s): M46.44 - Discitis, unspecified, thoracic region Status: Chronic Assessment and Plan: she has been getting abx by ID (5) Hypokalemia: Code(s): E87.6 - Hypokalemia Status: Acute (6) Atrial fibrillation: Qualifiers: Atrial fibrillation type: unspecified chronic Qualified Code(s): I48.20 - Chronic atrial fibrillation, unspecified Code(s): I48.91 - Unspecified atrial fibrillation Status: Chronic Assessment and Plan: on blood thinners, hb low but stable Subjective Date/time seen: 07/24/20 13:03 Interval history: still high output by ngt but she is also has been drinking water with ice chips. Patient denies any abdominal pain and had two bowel movements today, no nausea and she feels comfortable. Review of Systems Review of Systems: All systems reviewed & are unremarkable except as noted in HPI and below Exam Const: General: comfortable and no acute distress HENMT: General nose exam: Normal nares present Other: NG tube in place Eyes: Sclera: sclerae normal Pupils: Equal, round and reactive pupils present Neck: Neck: supple and no JVD Resp: Effort & Inspection: normal respiratory effort Auscultation: diminished lung sounds ( at bases) Cardio: Rhythm: abnormal rhythm irregularly irregular GI: Auscultation: abnormal bowel sounds ( hypoactive bowel sounds) Other: less distended today, no guarding or pain : Other: Ortega catheter in place Urinary Catheter: Urinary Catheter: patent and draining and urine clear Skin: Other: venous stasis changes on lower extremities Neuro: Cranial nerves: Yes Equal, round and reactive pupils present Speech: normal speech Extrem: Other: trace leg edema Psych: Mental Status: mental status grossly normal Affect: normal affect Objective Data Vital Signs Vital Signs: Vital Signs - 24 hr 07/23/20 15:12 07/23/20 19:21 07/23/20 21:41 Temperature 97.5 F L 98 F Pulse Rate 92 99 99 Respiratory Rate 20 16 Blood Pressure 131/63 137/86 Pulse Oximetry 99 100 07/23/20 23:55 07/24/20 05:31 07/24/20 08:29 Temperature 98.6 F Pulse Rate 91 93 70 Respiratory Rate 23 H 16 Blood Pressure 136/81 Pulse Oximetry 94 94 Intake/Output Intake/Output: Intake & Output 07/21/20 07/22/20 07/23/20 07/24/20 23:59 23:59 23:59 23:59 Intake Total 850 1910 1440 850 Output Total 2650 2223 3025 1950 [facility] -1800 -[phone] -[phone] -1100 Meds/Results Medications: Active Medications Generic Name Dose Route Start Last Admin Trade Name Freq PRN Reason Stop Dose Admin Albuterol 2 puff 07/20/20 20:34 Proventil Hfa INHALATION Q6H PRN Shortness Of Breath Apixaban 5 mg 07/21/20 09:00 07/24/20 08:28 Eliquis PO 5 mg BID DEWAYNE Administration Atorvastatin Calcium 10 mg 07/21/20 18:00 07/23/20 17:06 Lipitor PO 10 mg QPM DEWAYNE Administration Diltiazem HCl 120 mg 07/21/20 09:00 07/24/20 08:29 Cardizem Cd PO 120 mg QAM DEWAYNE Administration Docusate Sodium 100 mg 07/21/20 09:00 07/24/20 08:29 Colace Capsule PO 100 mg DAILY [facility] Administr
[2020-07-24] MEDS: ATORVASTATIN 10 MG TABLET PO (17:13)
[2020-07-24 18:36] LABS: Potassium 2.5 mmol/L (3.4-5.0)
[2020-07-24] MEDS: MAGNESIUM SULF 2 GM/WATER 50ML 2 GM/50 ML BAG IVPB (19:11)
[2020-07-24] MEDS: GABAPENTIN 300 MG CAPSULE PO (21:02)
[2020-07-25] MEDS: METOCLOPRAMIDE HCL INJ 10 MG/2 ML VIAL 5 MG IV PUSH ×4 (00:01→17:29)
[2020-07-25 03:20] VITALS: PULSE 102; RESP 18; O2SAT 98
[2020-07-25 05:34] VITALS: BP 121/88; PULSE 108; RESP 16; TEMP 36.1; O2SAT 100
[2020-07-25] MEDS: CENTRAL LINE FLUSH 10 ML IV PUSH ×3 (05:45→21:30)
[2020-07-25] MEDS: ceFAZolin 2 GM/D5W 50 ML 2 GM/50 ML BAG IVPB ×3 (05:46→21:28)
[2020-07-25 06:17] LABS: Anion Gap 14.99999 mmol/L (8-16); Blood Urea Nitrogen 13 mg/dL (7-17); Calcium 8.8 mg/dL (8.4-10.2); Carbon Dioxide > 40 mmol/L (22-30); Chloride 77 mmol/L (98-107); Estimated CRCL calculation 105 ml/min; Estimated Glomerular Filt Rate > 60; Glucose 108 mg/dL (65-105); Potassium 2.7 mmol/L (3.4-5.0); Sodium 132 mmol/L (137-145)
[2020-07-25] MEDS: KCL 40 MEQ/D5/0.9% SOD CHL 1,000 ML 75 ML IV CONT ×2 (07:47→22:32)
[2020-07-25] MEDS: POTASSIUM CHLORIDE 20 MEQ TABLET.ER 40 MEQ PO ×2 (07:48→17:30)
[2020-07-25] MEDS: polyethylene glycoL 3350 17 GM POWD.PACK PO (09:28)
[2020-07-25] MEDS: MULTIVITAMINS THERAPEUTIC TAB (*BKC) 1 TABLET PO (09:28)
[2020-07-25] MEDS: SACCHAROMYCES BOULARDII 250 MG CAPSULE PO ×2 (09:28→17:30)
[2020-07-25] MEDS: TOLNAFTATE 1% POWDER 45 GM BTL 1 APPLIC TOPICAL ×2 (09:28→21:30)
[2020-07-25] MEDS: APIXABAN 5 MG TABLET PO ×2 (09:28→17:30)
[2020-07-25 09:29] VITALS: PULSE 96
[2020-07-25] MEDS: MAGNESIUM OXIDE 400 MG TABLET PO (09:29)
[2020-07-25] MEDS: METOPROLOL TARTRATE 12.5 MG TABLET PO ×2 (09:29→21:29)
[2020-07-25] MEDS: FERROUS SULFATE 324 MG TABLET PO (09:29)
[2020-07-25] MEDS: DOCUSATE SODIUM 100 MG CAPSULE PO (09:29)
[2020-07-25] MEDS: SPIRONOLACTONE 25 MG TABLET PO (09:30)
[2020-07-25 11:38] LABS: Potassium 3.1 mmol/L (3.4-5.0)
--- NOTE | 2020-07-25 13:47 | PM.IMPN ---
Progress Note: A&P Assessment and Plan (1) Acute and chronic respiratory failure ([id number]-[id number]): Qualifiers: Respiratory failure complication: hypercapnia Qualified Code(s): J96.22 - Acute and chronic respiratory failure with hypercapnia Code(s): J96.20 - Acute and chronic respiratory failure, unspecified whether with hypoxia or hypercapnia Status: Acute Assessment and Plan: The patient was admitted to IMU and started on IV antibiotics for presumed pneumonia. Chest x-ray on admission showed right upper and left lower lobe airspace disease. CT scan of the abdomen showing small bilateral pleural effusions with atelectasis. The patient denies any fever, cough, or other symptoms of pneumonia. ABG did show pH 7.2 with elevated pCO2. May be related to the distended colon which may limit diaphragmatic excursion. The patient's CXR actually looks better compared to her previous hospitalization. Symptoms have improved. Continue Bipap at night and with naps. She states she is compliant with the Trilogy at the [place]. Continue to monitor. (2) Ileus: Code(s): K56.7 - Ileus, unspecified Status: Resolved Assessment and Plan: Exam is much improved. Patient passing stool and gas. NG out. Diet started. Continue IV Reglan. Appreciate GI input. (3) Hypokalemia: Code(s): E87.6 - Hypokalemia Status: Acute Assessment and Plan: Potassium difficult to replace. Probably related to at least from removal of H+ with the kidney exchanging K+ for H+. On oral and IV replacement. Still on Spironolactone but Lasix held. Continue to replace. (4) CHF (congestive heart failure): Qualifiers: Heart failure chronicity: acute on chronic Heart failure type: diastolic Qualified Code(s): I50.33 - Acute on chronic diastolic (congestive) heart failure Code(s): I50.9 - Heart failure, unspecified Status: Acute Assessment and Plan: Negative cumulative fluid balance since admission. IV fluids started since concern for excessive fluid loss from NG tube. Since NGT is out and she is tolerating oral intake, will stop IVF after this bag. Continue to monitor fluid status. (5) Anemia: Qualifiers: Anemia type: unspecified type Qualified Code(s): D64.9 - Anemia, unspecified Code(s): D64.9 - Anemia, unspecified Status: Acute Assessment and Plan: Patient with chronic anemia with a hemoglobin normally running in the 7-8 range. Hemoglobin here is better at 8-9 range. Most likely this is anemia chronic disease related to her chronic ongoing inflammatory state from the infectious process. (6) Atrial fibrillation: Qualifiers: Atrial fibrillation type: unspecified chronic Qualified Code(s): I48.20 - Chronic atrial fibrillation, unspecified Code(s): I48.91 - Unspecified atrial fibrillation Status: Chronic Assessment and Plan: Heart rate is stable. Continue metoprolol for rate control and Eliquis for stroke prophylaxis. (7) Hypertension: Qualifiers: Hypertension type: essential hypertension Qualified Code(s): I10 - Essential (primary) hypertension Code(s): I10 - Essential (primary) hypertension Status: Chronic Assessment and Plan: Patient's blood pressure was reviewed on 07/25 Blood pressure remains well controlled. Will continue current medications. (8) Discitis of thoracic region: Code(s): M46.44 - Discitis, unspecified, thoracic region Status: Chronic Assessment and Plan: Stable Continue IV ancef. (9) Suspected COVID-19 virus infection: Code(s): R68.89 - Other general symptoms and signs Status: Ruled-out Assessment and Plan: The patient was swabbed again for COVID-19. COVID test was negative. Subjective Date/time seen: 07/25/20 13:48 Interval history: Date of visit 07/25 70-year-old white f
[2020-07-25 15:26] VITALS: BP 134/77; PULSE 77; RESP 18; TEMP 36.3; O2SAT 99
[2020-07-25 16:22] LABS: Potassium 3.3 mmol/L (3.4-5.0)
--- NOTE | 2020-07-25 16:41 | WPDGIPROGNO ---
Progress Note: A&P Assessment and Plan (1) Ileus: Code(s): K56.7 - Ileus, unspecified Status: Resolved Assessment and Plan: benign abdominal exam today, having BM's and denies nausea advance diet and continue with reglan probably multifactorial (correcting hypokalemia), obesity, poor mobility, recent sepsis, etc (2) Acute and chronic respiratory failure ([id number]-hlolzuq): Qualifiers: Respiratory failure complication: hypercapnia Qualified Code(s): J96.22 - Acute and chronic respiratory failure with hypercapnia Code(s): J96.20 - Acute and chronic respiratory failure, unspecified whether with hypoxia or hypercapnia Status: Acute (3) Pneumonia: Code(s): J18.9 - Pneumonia, unspecified organism Status: Acute (4) Discitis of thoracic region: Code(s): M46.44 - Discitis, unspecified, thoracic region Status: Chronic Assessment and Plan: she has been getting abx by ID (5) Hypokalemia: Code(s): E87.6 - Hypokalemia Status: Acute Assessment and Plan: it is being repleted (6) Atrial fibrillation: Qualifiers: Atrial fibrillation type: unspecified chronic Qualified Code(s): I48.20 - Chronic atrial fibrillation, unspecified Code(s): I48.91 - Unspecified atrial fibrillation Status: Chronic Assessment and Plan: on blood thinners, hb low but stable Subjective Date/time seen: 07/25/20 16:41 Interval history: she is having BM's, denies abdominal pain and tolerating liquid diet. She is hungry Review of Systems Review of Systems: All systems reviewed & are unremarkable except as noted in HPI and below Exam Const: General: comfortable and no acute distress HENMT: General nose exam: Normal nares present Other: NG tube in place Eyes: Sclera: sclerae normal Pupils: Equal, round and reactive pupils present Neck: Neck: supple and no JVD Resp: Effort & Inspection: normal respiratory effort Auscultation: diminished lung sounds ( at bases) Cardio: Rhythm: abnormal rhythm irregularly irregular GI: Auscultation: abnormal bowel sounds ( hypoactive bowel sounds) Other: less distended today, no guarding or pain : Other: Ortega catheter in place Urinary Catheter: Urinary Catheter: patent and draining and urine clear Skin: Other: venous stasis changes on lower extremities Neuro: Cranial nerves: Yes Equal, round and reactive pupils present Speech: normal speech Extrem: Other: trace leg edema Psych: Mental Status: mental status grossly normal Affect: normal affect Objective Data Vital Signs Vital Signs: Vital Signs - 24 hr 07/24/20 19:56 07/24/20 21:02 07/24/20 23:15 Temperature 97 F L Pulse Rate 109 H 109 H 102 H Respiratory Rate 16 21 H Blood Pressure 129/66 Pulse Oximetry 100 98 07/25/20 03:20 07/25/20 05:34 07/25/20 09:29 Temperature 97 F L Pulse Rate 102 H 108 H 96 Respiratory Rate 18 16 Blood Pressure 121/88 Pulse Oximetry 98 100 07/25/20 15:26 Temperature 97.3 F L Pulse Rate 77 Respiratory Rate 18 Blood Pressure 134/77 Pulse Oximetry 99 Intake/Output Intake/Output: Intake & Output 07/22/20 07/23/20 07/24/20 07/25/20 23:59 23:59 23:59 23:59 Intake Total 1910 1690 2800 850 Output Total 2225 3025 3600 450 Balance -315 1335 -800 400 Meds/Results Medications: Active Medications Generic Name Dose Route Start Last Admin Trade Name Freq PRN Reason Stop Dose Admin Albuterol 2 puff 07/20/20 20:34 Proventil Hfa INHALATION Q6H PRN Shortness Of Breath Apixaban 5 mg 07/21/20 09:00 07/25/20 09:28 Eliquis PO 5 mg BID DEWAYNE Administration Atorvastatin Calcium 10 mg 07/21/20 18:00 07/24/20 17:13 Lipitor PO 10 mg QPM DEWAYNE Administration Diltiazem HCl 120 mg 07/21/20 09:00 07/25/20 09:29 Cardizem Cd PO 120 mg QAM DEWAYNE Administration Docusate Sodium 100 mg 07/21/20 09:00 07/25/20 09:29 Colace Ca
[2020-07-25] MEDS: ATORVASTATIN 10 MG TABLET PO (17:30)
[2020-07-25 20:20] VITALS: BP 110/68; PULSE 105; RESP 16; TEMP 36.4; O2SAT 100
[2020-07-25 21:29] VITALS: PULSE 105
[2020-07-25] MEDS: GABAPENTIN 300 MG CAPSULE PO (21:29)
[2020-07-26 00:43] VITALS: PULSE 105; RESP 26; O2SAT 99
[2020-07-26] MEDS: METOCLOPRAMIDE HCL INJ 10 MG/2 ML VIAL 5 MG IV PUSH ×2 (00:47→05:45)
[2020-07-26 04:15] VITALS: PULSE 83; RESP 22; O2SAT 98
[2020-07-26 04:38] VITALS: BP 115/56; PULSE 81; RESP 14; TEMP 36.4; O2SAT 100
[2020-07-26] MEDS: CENTRAL LINE FLUSH 10 ML IV PUSH ×2 (04:53→13:40)
[2020-07-26] MEDS: ceFAZolin 2 GM/D5W 50 ML 2 GM/50 ML BAG IVPB ×2 (05:37→13:40)
[2020-07-26 06:07] LABS: Hematocrit 27.2 % (37.0-47.0); Hemoglobin 8.2 g/dL (12.0-15.0); Mean Corpuscular HGB Conc 30.1 g/dl (32-36); Mean Corpuscular Hemoglobin 29.9 pg (26-34); Mean Corpuscular Volume 99.3 fl (80-100); Mean Platelet Volume 9.7 fl (7.4-10.4); Platelet Count Result 267 k/mm3 (150-375); Red Blood Count 2.74 M/mm3 (4.2-5.4); Red Cell Distribution Width 14.9 % (11.5-14.5)
[2020-07-26 06:24] LABS: Anion Gap 7.99999 mmol/L (8-16); Blood Urea Nitrogen 8 mg/dL (7-17); Calcium 8.6 mg/dL (8.4-10.2); Carbon Dioxide > 40 mmol/L (22-30); Chloride 85 mmol/L (98-107); Estimated CRCL calculation 106 ml/min; Estimated Glomerular Filt Rate > 60; Glucose 111 mg/dL (65-105); Magnesium 1.8 mg/dL (1.6-2.3); Potassium 3.2 mmol/L (3.4-5.0); Sodium 133 mmol/L (137-145)
[2020-07-26] MEDS: MAGNESIUM SULF 2 GM/WATER 50ML 2 GM/50 ML BAG IVPB (08:27)
[2020-07-26] MEDS: POTASSIUM CHLORIDE 20 MEQ TABLET 40 MEQ PO (08:27)
[2020-07-26 08:28] VITALS: PULSE 84
[2020-07-26] MEDS: METOPROLOL TARTRATE 12.5 MG TABLET PO (08:28)
[2020-07-26] MEDS: MULTIVITAMINS THERAPEUTIC TAB (*BKC) 1 TABLET PO (08:29)
[2020-07-26] MEDS: MAGNESIUM OXIDE 400 MG TABLET PO (08:29)
[2020-07-26] MEDS: FERROUS SULFATE 324 MG TABLET PO (08:29)
[2020-07-26] MEDS: SACCHAROMYCES BOULARDII 250 MG CAPSULE PO ×2 (08:30→16:54)
[2020-07-26] MEDS: APIXABAN 5 MG TABLET PO ×2 (08:30→16:52)
[2020-07-26] MEDS: TOLNAFTATE 1% POWDER 45 GM BTL 1 APPLIC TOPICAL (08:31)
[2020-07-26] MEDS: SPIRONOLACTONE 25 MG TABLET PO (08:32)
[2020-07-26 08:33] VITALS: RESP 14; O2SAT 100
[2020-07-26] MEDS: polyethylene glycoL 3350 17 GM POWD.PACK PO (09:12)
[2020-07-26] MEDS: POTASSIUM CHLORIDE 20 MEQ TABLET.ER 40 MEQ PO ×2 (10:34→16:54)
[2020-07-26] MEDS: METOCLOPRAMIDE HCL 5 MG TABLET PO ×2 (11:21→16:53)
[2020-07-26 13:12] LABS: Potassium 3.9 mmol/L (3.4-5.0)
[2020-07-26 13:52] LABS: SARS-CoV-2 RNA PCR Negative
--- NOTE | 2020-07-26 14:44 | PM.DS ---
DS: Admitting Diagnosis Admitting Diagnosis Admitting Diagnosis: desaturated at the AL DS: Discharge Diagnosis Discharge Diagnosis (1) Acute and chronic respiratory failure ([id number]): Qualifiers: Respiratory failure complication: hypercapnia Qualified Code(s): J96.22 - Acute and chronic respiratory failure with hypercapnia Code(s): J96.20 - Acute and chronic respiratory failure, unspecified whether with hypoxia or hypercapnia Status: Acute Assessment and Plan: The patient was admitted to IMU and started on IV antibiotics for presumed pneumonia. Chest x-ray on admission showed right upper and left lower lobe airspace disease. CT scan of the abdomen showing small bilateral pleural effusions with atelectasis. The patient denied any fever, cough, or other symptoms of pneumonia. ABG did show pH 7.2 with elevated pCO2. May be related to the distended colon which may limit diaphragmatic excursion. The patient's CXR actually looks better compared to her previous hospitalization. We continued Bipap at night and with naps. She states she is compliant with the Trilogy at the AL. (2) Ileus: Code(s): K56.7 - Ileus, unspecified Status: Resolved Assessment and Plan: [place] related to Trilogy, hypokalemia, bedrest. NG tube placed and she was having excessive ouput. She was started on Reglan. Exam is much improved. Patient passing flatus and stool. GI following and appreciate their input. (3) Hypokalemia: Code(s): E87.6 - Hypokalemia Status: Acute Assessment and Plan: Potassium was refractory to replacement. Was on oral and IV replacement. We held the Lasix but she remained on the Spironolactone. Potassium normalized. She takes 40MEq BID at the AL so this will be increased so Lasix to be resumed. Close monitoring of potassium (4) CHF (congestive heart failure): Qualifiers: Heart failure chronicity: acute on chronic Heart failure type: diastolic Qualified Code(s): I50.33 - Acute on chronic diastolic (congestive) heart failure Code(s): I50.9 - Heart failure, unspecified Status: Acute Assessment and Plan: Negative cumulative fluid balance since admission. IV fluids started since concern for excessive fluid loss from NG tube x 1Liter. Since NGT is out and she is tolerating oral intake, we stopped IVF. Lasix resumed at discharge. (5) Anemia: Qualifiers: Anemia type: unspecified type Qualified Code(s): D64.9 - Anemia, unspecified Code(s): D64.9 - Anemia, unspecified Status: Acute Assessment and Plan: Patient with chronic anemia with a hemoglobin normally running in the 7-8 range. Hemoglobin here is within her baseline. Most likely this is anemia chronic disease related to her chronic ongoing inflammatory state from the infectious process. (6) Suspected COVID-19 virus infection: Code(s): R68.89 - Other general symptoms and signs Status: Ruled-out Assessment and Plan: The patient was swabbed again for COVID-19. COVID test was negative. (7) Atrial fibrillation: Qualifiers: Atrial fibrillation type: unspecified chronic Qualified Code(s): I48.20 - Chronic atrial fibrillation, unspecified Code(s): I48.91 - Unspecified atrial fibrillation Status: Chronic Assessment and Plan: Heart rate is stable. We continued metoprolol for rate control and Eliquis for stroke prophylaxis. (8) Hypertension: Qualifiers: Hypertension type: essential hypertension Qualified Code(s): I10 - Essential (primary) hypertension Code(s): I10 - Essential (primary) hypertension Status: Chronic Assessment and Plan: Patient's blood pressure was reviewed Blood pressure remained well controlled. We continued home medications. (9) Discitis of thoracic region: Code(s): M46.44 - Discitis, unspecified, thorac
--- NOTE | 2020-07-26 15:56 | WPDGIPROGNO ---
Progress Note: A&P Assessment and Plan (1) Ileus: Code(s): K56.7 - Ileus, unspecified Status: Resolved Assessment and Plan: resolved and tolerating diet she should be ok to go back to detention (2) Acute and chronic respiratory failure ([id number]): Qualifiers: Respiratory failure complication: hypercapnia Qualified Code(s): J96.22 - Acute and chronic respiratory failure with hypercapnia Code(s): J96.20 - Acute and chronic respiratory failure, unspecified whether with hypoxia or hypercapnia Status: Acute (3) Pneumonia: Code(s): J18.9 - Pneumonia, unspecified organism Status: Acute (4) Discitis of thoracic region: Code(s): M46.44 - Discitis, unspecified, thoracic region Status: Chronic Assessment and Plan: she has been getting abx by ID (5) Hypokalemia: Code(s): E87.6 - Hypokalemia Status: Acute Assessment and Plan: it is being repleted, also low magnesium (6) Atrial fibrillation: Qualifiers: Atrial fibrillation type: unspecified chronic Qualified Code(s): I48.20 - Chronic atrial fibrillation, unspecified Code(s): I48.91 - Unspecified atrial fibrillation Status: Chronic Assessment and Plan: on blood thinners, hb low but stable Subjective Date/time seen: 07/26/20 15:56 Interval history: she has been eating without any nausea or pain, still having 2 BM daily Review of Systems Review of Systems: All systems reviewed & are unremarkable except as noted in HPI and below Exam Const: General: comfortable and no acute distress HENMT: General nose exam: Normal nares present Other: NG tube in place Eyes: Sclera: sclerae normal Pupils: Equal, round and reactive pupils present Neck: Neck: supple Resp: Effort & Inspection: normal respiratory effort Cardio: Rhythm: abnormal rhythm irregularly irregular GI: GI Palp: No Firmness to palpation present (GI) and No Tenderness to palpation present (GI) Auscultation: normal bowel sounds : Other: Ortega catheter in place Urinary Catheter: Urinary Catheter: patent and draining and urine clear Skin: Other: venous stasis changes on lower extremities Neuro: Cranial nerves: Yes Equal, round and reactive pupils present Speech: normal speech Extrem: Other: trace leg edema Psych: Mental Status: mental status grossly normal Affect: normal affect Objective Data Vital Signs Vital Signs: Vital Signs - 24 hr 07/25/20 20:20 07/25/20 21:29 07/26/20 00:43 Temperature 97.6 F Pulse Rate 105 H 105 H 105 H Respiratory Rate 16 26 H Blood Pressure 110/68 Pulse Oximetry 100 99 07/26/20 04:15 07/26/20 04:38 07/26/20 08:28 Temperature 97.5 F L Pulse Rate 83 81 84 Respiratory Rate 22 H 14 Blood Pressure 115/56 L Pulse Oximetry 98 100 07/26/20 08:33 Temperature Pulse Rate Respiratory Rate 14 Blood Pressure Pulse Oximetry 100 Intake/Output Intake/Output: Intake & Output 07/23/20 07/24/20 07/25/20 07/26/20 23:59 23:59 23:59 23:59 Intake Total 1690 2800 2703 1556 Output Total 3025 3600 450 850 Balance -1335 -800 2253 706 Meds/Results Medications: Active Medications Generic Name Dose Route Start Last Admin Trade Name Freq PRN Reason Stop Dose Admin Albuterol 2 puff 07/20/20 20:34 Proventil Hfa INHALATION Q6H PRN Shortness Of Breath Apixaban 5 mg 07/21/20 09:00 07/26/20 08:30 Eliquis PO 5 mg BID DEWAYNE Administration Atorvastatin Calcium 10 mg 07/21/20 18:00 07/25/20 17:30 Lipitor PO 10 mg QPM DEWAYNE Administration Diltiazem HCl 120 mg 07/21/20 09:00 07/26/20 08:33 Cardizem Cd PO 120 mg QAM DEWAYNE Administration Docusate Sodium 100 mg 07/21/20 09:00 07/26/20 09:11 Colace Capsule PO Not Given DAILY DEWAYNE Ferrous Sulfate 324 mg 07/21/20 09:00 07/26/20 08:29 Ferrous Sulfate PO 324 mg DAILY DEWAYNE Administration Furosemide 40 m
[2020-07-26 16:00] VITALS: BP 131/66; PULSE 88; RESP 18; TEMP 37.3; O2SAT 100
[2020-07-26] MEDS: FUROSEMIDE 40 MG TABLET PO (16:53)
[2020-07-26] MEDS: ATORVASTATIN 10 MG TABLET PO (16:56)
== END 2020-07-26 19:05 | DRG 189 ==
LOC: ANHED 16:37 → ANHICU 19:27 → ANH3MED 07-23 06:48 → ANHICU 07-31 13:17 → ANHIMU 07-31 13:17
PROVIDERS: Family Medicine; Internal Medicine; Admitting Provider Family Medicine; Emergency Provider Emergency Medicine; PCP Internal Medicine Infectious Disease; Visit Provider Internal Medicine
DX: J96.22 Acute and chronic respiratory failure with hypercapnia (principal); I50.33 Acute on chronic diastolic (congestive) heart failure; K56.7 Ileus, unspecified; Z68.42 Body mass index [BMI] 45.0-49.9, adult; I82.509 Chronic embolism and thrombosis of unspecified deep veins of unspecified lower extremity; J96.21 Acute and chronic respiratory failure with hypoxia; E66.01 Morbid (severe) obesity due to excess calories; I11.0 Hypertensive heart disease with heart failure; I48.91 Unspecified atrial fibrillation; E87.6 Hypokalemia; M46.44 Discitis, unspecified, thoracic region; Z20.828 Contact with and (suspected) exposure to other viral communicable diseases
CPT/HCPCS: 36415; 36600; 51701; 71045; 74019; 74177; 80048; 80053; 80069; 81001; 82375; 82805; 83050; 83690; 83735; 84100; 84132; 85025; 85027; 87040; 87635; 93005; 94002; 94003; 96361; 96365; 96367; 96375; 97110; 97161; 97165; 97530; 97535; 99285; A9270; C9803; J0131; J0456; J0690; J0696; J2270; J2405; J2765; J3475; J3480; J7030; Q9967; U0003

== ENCOUNTER 2020-08-08 09:05 | Inpatient (IN) | payer MEDICARE, MEDICAID, SELFPAY ==
[2020-08-08] VITALS (10 sets, daily range): BP systolic 98–130; BP diastolic 74–86; PULSE 83–110; RESP 16–29; TEMP 36.5–36.6; O2SAT 92–100; BMI 48.4
--- NOTE | ~2020-08-08 | XR_ITS ---
EXAMINATION: XR abdomen/kub 1V INDICATION: Nasogastric tube removed TECHNIQUE: Supine views of the abdomen were obtained on 2 radiographs. COMPARISON: 08/16/2020 FINDINGS: The nasogastric tube has been removed. There is persistent marked colonic distention. No de finitely dilated small bowel loops are identified. A vascular stent is noted in the right pelvis. The re are minimal airspace opacities of the left lung base. IMPRESSION: 1. Persistent marked colonic distention, consistent with ileus. Reviewed, dictated and finalized at location A.
--- NOTE | ~2020-08-08 | XR_ITS ---
XR chest 1V portable 08/08/2020 10:51 Indication: Shortness of breath Procedure: AP portable chest Comparison: Comparison to multiple prior studies sequentially, with oldest reviewed study dated 07/07. Findings: There is moderate cardiomegaly. PICC line catheter tip in the SVC. There is mild interstiti al edema. Small pleural effusions. No pneumothorax. Moderate gastric distention. Impression: 1: Moderate cardiomegaly with interstitial edema. 2: Small pleural effusions. Reviewed, dictated and finalized at location B. Impression: 1: Moderate cardiomegaly with interstitial edema. 2: Small pleural effusions.
--- NOTE | ~2020-08-08 | XR_ITS ---
EXAMINATION: XR abdomen NG/feed tube insert DATE: 08/14/2020 15:21 INDICATION: Nasogastric tube placement. TECHNIQUE: A single view of the abdomen was obtained. COMPARISON: Abdomen radiograph 08/13/2020 FINDINGS: The lower abdomen is excluded. There are dilated loops of small bowel. There is gaseous dis tention of the colon. The nasogastric tube tip is in the stomach. The proximal side port is in the di stal esophagus. There is a central line tip in right atrium. There is a vascular stent in right pelvi s. IMPRESSION: 1. Dilated small and large bowel, consistent with adynamic ileus. 2. Nasogastric tube tip in the stomach with proximal side port in the distal esophagus. Advancement 8 cm is recommended. Reviewed, dictated and finalized at location A. IMPRESSION: 1. Dilated small and large bowel, consistent with adynamic ileus. 2. Nasogastric tube tip in the stomach with proximal side port in the distal es ophagus. Advancement 8 cm is recommended.
--- NOTE | ~2020-08-08 | XR_ITS ---
XR abdomen/kub 1V 08/16/2020 06:03 Indication: Abdominal distention. Procedure: KUB Comparison: Comparison to multiple prior studies sequentially, with oldest reviewed study dated 07/22. Findings: Persistent severely dilated colon. NG tube in the stomach. There is a right common and exte rnal iliac vein stent. Impression: 1: Severely dilated colon, compatible with ileus. Reviewed, dictated and finalized at location A. Impression: 1: Severely dilated colon, compatible with ileus.
--- NOTE | ~2020-08-08 | XR_ITS ---
EXAMINATION: XR chest 1V portable DATE: 08/14/2020 05:29 INDICATION: Shortness of breath. TECHNIQUE: A single frontal view of the chest was obtained. COMPARISON: Chest single view 08/08/2020, chest CT 08/10/2020 FINDINGS: Sensitivity is decreased by obesity. There are airspace opacities in right middle lower allie g zones and left lower lung zone. A small pleural effusions. No pneumothorax. Cardiomegaly is noted. IMPRESSION: 1. Worsened airspace opacities in right mid and lower lung zones and left lower lung zone, likely ate lectasis. Pneumonia is less likely. 2. Stable small pleural effusions. 3. Cardiomegaly. Reviewed, dictated and finalized at location A. IMPRESSION: 1. Worsened airspace opacities in right mid and lower lung zones and left lower lung zone, likely atelectasis. Pneumonia is less likely. 2. Stable small pleural effusions. 3. Cardiomegaly.
--- NOTE | ~2020-08-08 | CT_ITS ---
EXAMINATION:CT chest wo con DATE: 08/10/2020 10:17 INDICATION: Respiratory failure. TECHNIQUE: Computed tomography (CT) of the chest was performed without intravenous contrast. Automate d exposure control and iterative reconstruction technique were employed. The dose-length product (DLP ) was 663.81 mGy-cm. COMPARISON: Chest single view 08/08/2020, CT abdomen and pelvis 07/20/2020, chest CT 02/19/2020 FINDINGS: The lungs demonstrate mild atelectasis with a dependent predominance. A calcified left lung nodule and calcified left hilar lymph nodes are consistent with old granulomatous disease. There are small pleural effusions. A right upper extremity peripherally inserted central venous catheter (PICC ) is seen with tip at the superior cavoatrial junction. Cardiomegaly is noted. There are coronary art efrain calcifications. No pericardial effusion. Calcifications in the liver and spleen are consistent wi th old granulomatous disease. There is gaseous distention of the visualized portion of the colon, con sistent with adynamic ileus. There are old healed bilateral rib fractures. There are burst fractures of T5, T6, T7 with greater than 4/5 loss of height at each level and bone loss and disc height loss, worsened from 02/19/20. There is focal kyphosis in this area and mild central canal stenosis. IMPRESSION: 1. Burst fractures at T5, T6, T7 with bone loss, consistent with discitis and osteomyelitis. 2. Small pleural effusions. 3. Gaseous distention of the colon, consistent with adynamic ileus. Reviewed, dictated and finalized at location A. IMPRESSION: 1. Burst fractures at T5, T6, T7 with bone loss, consistent with discitis and o steomyelitis. 2. Small pleural effusions. 3. Gaseous distention of the colon, consistent with adynamic ileus.
--- NOTE | ~2020-08-08 | XR_ITS ---
EXAMINATION: XR abdomen NG/feed tube rechec EXAM DATE: 08/14/2020 15:53 INDICATION: Feeding tube placement. TECHNIQUE: Frontal projection(s) of the abdomen for interpretation. Comparison is made to prior exami nation from earlier same date. FINDINGS: Feeding tube has been advanced, tip and side-port project over upper abdomen. Severely dis tended gas-filled colon unchanged. Some linear left basilar atelectasis. Right iliac stent. IMPRESSION: 1. Feeding tube in position. 2. Severe gaseous colonic distention. Reviewed, dictated and finalized at location B.
--- NOTE | ~2020-08-08 | XR_ITS ---
XR abdomen/kub 1V 08/13/2020 12:49 Indication: Bowel distention Procedure: AP supine view of the abdomen Comparison: 07/22/2020 Findings: Large amount of gas throughout the colon, consistent with ileus. There is a stent in the ri ght common and external iliac vein. NG tube not definitely visualized on the current study. Impression: 1: Persistently gas-filled distended colon, consistent with ileus. Reviewed, dictated and finalized at location A. Impression: 1: Persistently gas-filled distended colon, consistent with ileus.
--- NOTE | ~2020-08-08 | XR_ITS ---
XR chest 1V portable 08/16/2020 06:04 Indication: Shortness of breath Procedure: AP portable chest Comparison: Comparison to multiple prior studies sequentially, with oldest reviewed study dated 07/11. Findings: NG tube in the stomach. Moderate cardiomegaly with interstitial edema. Small left pleural e ffusion. No pneumothorax. No acute osseous abnormality. Impression: 1: Cardiomegaly with interstitial edema. Reviewed, dictated and finalized at location A. Impression: 1: Cardiomegaly with interstitial edema.
--- NOTE | 2020-08-08 09:15 | ECG_ITS ---
Measurements Intervals Ary Rate: 86 P: IA: 0 QRS: -11 QRSD: 110 T: -29 QT: 358 QTc: 430 Interpretive Statements ATRIAL FIBRILLATION VENTRICULAR PREMATURE COMPLEX NONSPECIFIC ST & T-WAVE ABNORMALITY- DIFFUSE LEADS BASELINE ARTIFACT- I, II, III, V3, V5-V6 ABNORMAL ECG Electronically Signed On 08-08-2020 10:00:39 CDT by Mike Carrasquillo D.O.
--- NOTE | 2020-08-08 09:16 | ED.AMS ---
HPI - Altered Mental Status General Chief Complaint: Shortness of Breath/Dyspnea Stated Complaint: LETHARGY Time Seen by Provider: 08/08/20 09:07 History of Present Illness HPI narrative: Brought in from skilled nursing for lethargy and low oxygen saturation. On arrival here she is sleepy, but easily arousable and fully oriented. She does not have any complaints at this time. Per EMS her oxygen saturation was 94%. She is on oxygen and being treated for pneumonia since recent hospitalization. No nausea, vomiting, abdominal pain, chest pain. [facility] Past Medical History Medical History (Updated 08/08/20 @ 11:42 by Preet Mcgrath MD) Atrial fibrillation CHF (congestive heart failure) COPD (chronic obstructive pulmonary disease) Sleep apnea Social History Social History (Updated 08/08/20 @ 11:38 by Preet Mcgrath MD) Living arrangements: skilled nursing Exam Const: General: no acute distress and ill appearing chronically Nutritional Appearance: obese morbidly obese Orientation/consciousness: patient oriented x3 Other: lethargic HENMT: Head: normal to inspection Eyes: Pupils: Equal, round and reactive pupils present Resp: Effort & Inspection: normal respiratory effort Auscultation: clear to auscultation bilaterally Cardio: Rate: regular rate Rhythm: abnormal rhythm irregularly irregular GI: Inspection: distended GI Palp: No Tenderness to palpation present (GI) Auscultation: normal bowel sounds Skin: General skin exam: normal color Neuro: General: patient oriented x3, moves all extremities and CN's II-XI intact bilaterally Speech: normal speech Extrem: General: edema bilateral Course Vital Signs Vital signs: Vital Signs Temperature 36.5 C 08/08/20 09:57 Pulse Rate 85 08/08/20 09:57 Respiratory Rate 29 H 08/08/20 09:57 Blood Pressure 130/85 08/08/20 09:57 Pulse Oximetry 95 08/08/20 09:57 Temperature 36.5 C 08/08/20 09:57 Pulse Rate 91 08/08/20 09:59 Respiratory Rate 16 08/08/20 09:59 Blood Pressure 130/85 08/08/20 09:57 Pulse Oximetry 99 08/08/20 09:59 MDM - Altered Mental Status Medical Records Attestation: I reviewed the patient's medical records. Lab Data Attestation: I reviewed the patient's lab results. Result diagrams: 08/08/20 10:31 08/08/20 10:31 Labs: Lab Results 08/08/20 08/08/20 08/08/20 Range/Units 09:39 10:31 10:31 WBC 11.9 H (4.5-10.0) K/mm3 RBC 2.94 L (4.2-5.4) M/mm3 Hgb 8.7 L (12.0-15.0) g/dL Hct 31.1 L (37.0-47.0) % MCV 105.8 H (80-100) fl MCH 29.6 (26-34) pg MCHC 28.0 L (32-36) g/dl RDW 15.7 H (11.5-14.5) % Plt Count 303 (150-375) k/mm3 MPV 8.8 (7.4-10.4) fl Immature Gran % (Auto) 1.4 H (0-0.5) % Neut % (Auto) 78.2 H (45.5-73.1) % Lymph % (Auto) 6.5 L (18.3-44.2) % Dickinson % (Auto) 13.4 H (2.6-8.5) % Eos % (Auto) 0.2 (0-4.4) % Baso % (Auto) 0.3 (0.2-1.2) % Lymph # (Auto) 0.77 L (0.9-3.2) K/mm3 Dickinson # (Auto) 1.6 H (0.1-0.6) K/mm3 Eos # (Auto) 0.0 (0-0.3) K/mm3 Baso # (Auto) 0.0 (0.0-0.1) K/mm3 Abs Immat Gran (auto) 0.16 H (0.00-0.031) K/mm3 Absolute Neuts (auto) 9.3 H (1.3-6.7) K/mm3 Absolute Nucleated RBC 0.0 (0.0-0.012) K/mm3 Nucleated RBC % 0.3 H (0.0-0.2) % PT 14.8 H (11.1-14.7) Seconds INR 1.2 APTT 34.8 (22.3-36.8) SECONDS Sodium (137-145) mmol/L Potassium (3.4-5.0) mmol/L Chloride (98-107) mmol/L Carbon Dioxide (22-30) mmol/L Anion Gap (8-16) mmol/L BUN (7-17) mg/dL Creatinine (0.7-1.0) mg/dL Estim Creat Clear Calc ml/min Estimated GFR (59 - ) Glucose (65-105) mg/dL Calcium (8.4-10.2) mg/dL Magnesium (1.6-2.3) mg/dL Total Bilirubin (0.2-1.3) mg/dL AST (14-36) U/L ALT (4-35) U/L Alkaline Phosphatase (38-126) U/L Total Protein (6.3-8.2) g/dL Albumin (3.5-5.1) g/dL TSH (0.4
--- NOTE | 2020-08-08 09:45 | PC.NURSE ---
[employer] called for lab draw.
[2020-08-08 09:54] LABS: Alveolar/Arterial O2 Gradient 84.7 mmHg; Base Excess ABG -0.2 mEq/l (+/-2.0); Fractional Inspired Oxygen 32 %; HCO3 ABG 29.6 mEq/l (22.0-26.0); Oxyhemoglobin 72.1 % THb (90.0-100.0); PO2 FiO2 Ratio Arterial Blood 1.43 %; Total Hemoglobin 9.8 g/dL (12.0-18.0)
[2020-08-08 09:55] LABS: PCO2 ABG 83.5 mmHg (35.0-45.0); pH ABG 7.168 (7.350-7.450)
--- NOTE | 2020-08-08 09:55 | PC.NURSE ---
2 Attempts to cath pt was made. New cath was used for both attempts.
[2020-08-08 09:56] LABS: Device NASAL CANNULA; PO2 ABG 45.8 mmHg (80.0-100.0); Site Drawn RIGHT BRACHIAL
[2020-08-08 09:58] LABS: Add Urine Microscopic? YES; Appearance Urine Turbid (Clear); Bacteria Urine Trace /hpf; Bilirubin Urine Negative (Negative); Color Urine Yellow (Yellow); Glucose Urine UA Negative (Negative); Hyaline Casts Urine 15-19 /lpf; Ketones Urine Negative (Negative); Leukocyte Esterase Ur 3+ LEU/UL (Negative); Nitrate Urine Negative (Negative); Protein Urine 2+ mg/dL (Negative); Specific Grav Ur 1.013 (1.001-1.035); Urobilinogen Urine Negative mg/dL (<2.0); WBC Clumps Urine Present /HPF; WBC Urine >75 /hpf
[2020-08-08 10:04] LABS: Blood Urine Negative (Negative)
[2020-08-08 10:51] LABS: Basophils Percent Auto 0.3 % (0.2-1.2); Eosinophils Percent Auto 0.2 % (0-4.4); Hematocrit 31.1 % (37.0-47.0); Hemoglobin 8.7 g/dL (12.0-15.0); Immature Granulocyte Absolute 0.16 K/mm3 (0.00-0.031); Immature Granulocyte Percent A 1.4 % (0-0.5); Lymphocytes Absolute Auto 0.77 K/mm3 (0.9-3.2); Lymphocytes Percent Auto 6.5 % (18.3-44.2); Mean Corpuscular Hemoglobin 29.6 pg (26-34); Mean Corpuscular Volume 105.8 fl (80-100); Mean Platelet Volume 8.8 fl (7.4-10.4); Monocytes Absolute Auto 1.6 K/mm3 (0.1-0.6); Monocytes Percent Auto 13.4 % (2.6-8.5); Neutrophils Absolute Auto 9.3 K/mm3 (1.3-6.7); Neutrophils Percent Auto 78.2 % (45.5-73.1); Nucleated Red Blood Cells Perc 0.3 % (0.0-0.2); Platelet Count Result 303 k/mm3 (150-375); Red Blood Count 2.94 M/mm3 (4.2-5.4); Red Cell Distribution Width 15.7 % (11.5-14.5); White Blood Count 11.9 K/mm3 (4.5-10.0)
[2020-08-08 11:04] LABS: INR 1.2; Prothrombin Time 14.8 Seconds (11.1-14.7)
[2020-08-08 11:05] LABS: Alanine Aminotransferase 6 U/L (4-35); Albumin Level 3.6 g/dL (3.5-5.1); Alkaline Phosphatase 79 U/L (38-126); Anion Gap 6 mmol/L (8-16); Aspartate Amino Transferase 20 U/L (14-36); Bilirubin,Total 0.4 mg/dL (0.2-1.3); Blood Urea Nitrogen 18 mg/dL (7-17); Calcium 9.9 mg/dL (8.4-10.2); Carbon Dioxide 36 mmol/L (22-30); Chloride 97 mmol/L (98-107); Estimated CRCL calculation 72 ml/min; Estimated Glomerular Filt Rate > 60; Glucose 146 mg/dL (65-105); Partial Thromboplastin Time 34.8 SECONDS (22.3-36.8); Sodium 139 mmol/L (137-145)
--- NOTE | 2020-08-08 11:23 | PC.NURSE ---
This RN tried to use pts picc line that was placed on last visit to this hospital. This RN asked charge nurse Renea if a Xray was needed to verify placement of PICC line was informed by Charge nurse that it is fine to use, go ahead. This RN tried to use PICC line and was unable to flush, Leda Saeed was called.
--- NOTE | 2020-08-08 11:29 | PC.NURSE ---
Leda Counts here to see pt.
[2020-08-08] MEDS: ALTEPLASE 2 MG VIAL (CATHFLO) IV PUSH ×2 (11:51→11:54)
[2020-08-08 14:30] LABS: Base Excess ABG 5.5 mEq/l (+/-2.0); HCO3 ABG 33.4 mEq/l (22.0-26.0); PCO2 ABG 70.2 mmHg (35.0-45.0); PO2 ABG 98.5 mmHg (80.0-100.0)
[2020-08-08 14:31] LABS: Alveolar/Arterial O2 Gradient 69.4 mmHg; Carboxyhemoglobin 0.7 % THb (0-2.0); Oxygen Saturation ABG 96.5 % (95.0-100.0); PO2 FiO2 Ratio Arterial Blood 2.81 %; Total Hemoglobin 9.5 g/dL (12.0-18.0)
[2020-08-08 14:32] LABS: Device NON-INVASIVE VENT; Fractional Inspired Oxygen 35 %; Methemoglobin ABG 0.3 %THb (0-1.5); Modified Allen's Test Pass; Oxygen Content ABG 12.9 %vol (16.0-22.0); Oxyhemoglobin 95.7 % THb (90.0-100.0); Reduced Hemoglobin 3.3 %THb (0-5.0); Site Drawn RIGHT RADIAL
[2020-08-08 14:33] LABS: Non-Invasive Inspiratory Pressure 18 CMH2O; Non-Invasive Vent Rate 16 /MIN
[2020-08-08 14:34] LABS: Non-Invasive Expiratory Pressure 8 CMH2O
--- NOTE | 2020-08-08 15:30 | PM.IMHP ---
H&P: HPI History of Present Illness Date/Time: 08/08/20 15:30. The patient was seen and evaluated in the emergency department. Chief complaint: Lethargy, hypoxia. Narrative: Trina Larkin is a 70-year-old female with multiple medical problems including morbid obesity, chronic respiratory failure, obesity hypoventilation syndrome, obstructive sleep apnea, diastolic congestive heart failure, paroxysmal atrial fibrillation, and several other comorbidities who presented to the emergency department earlier today via EMS from a local assisted facility for evaluation of lethargy and hypoxia. She is well known to the hospitalist service with multiple hospitalizations since February 2020, when our group was consulted for respiratory failure while undergoing rehab at [facility] (she had a fall on February 07, 2020 in which she sustained a T6 burst fracture and left humeral fracture). At that time she met sepsis criteria and was found to have MERCEDES bacteremia, presumably due to an abscess in the antecubital fossa at an IV site. She was treated with antibiotics, discharged, and readmitted on March 28, again with sepsis and acute respiratory failure. Blood cultures once again grew oxacillin sensitive Staph aureus and was thought perhaps a right ankle cellulitis was the source. During that stay she had progressive lower extremity weakness and a thoracic MRI showed burst fractures at T5-T7 with abnormal spinal cord signal from T4-T7 consistent with contusion as well as severe central canal stenosis. She was transferred to [facility] but was considered to be too high risk for surgery, and she has been at the assisted since that time. She was hospitalized again in May and June with respiratory failure, and once again MERCEDES bacteremia, most recently attributed to T4 diskitis/osteomyelitis. A PICC line is currently in place and she has been receiving IV antibiotics since her most recent discharge on July 26. In any regard, she was found to be lethargic and hypoxic by assisted staff this morning, with a reported SpO2 of 65%. EMS was summoned and on their arrival they were able to arouse the patient and she was alert and oriented x3 however she became progressively more unresponsive and was not alert on arrival to the emergency department. ABG once again demonstrated acute on chronic respiratory failure with hypercarbia and she has been placed on a BiPAP. At the time my evaluation she is alert and oriented x3, is in fact a bit irritable with having to stay in the hospital. She states compliance with her trilogy unit at the assisted, and tells me she even wears it with naps. She has no complaints at the time my evaluation specifically denies fever, chills, sweats, cough, chest pain, shortness of breath, nausea, vomiting, diarrhea, and dysuria. Chief Complaint: see Reason for Visit Duration: N/A Severity: N/A Associated signs and symptoms: N/A Exacerbating/relieving factors: N/A Review of Systems Review of Systems: Narrative: Twelve systems were reviewed with pertinent positives and negatives as per HPI. No fever, chills, or sweats. No recent cold or flu symptoms. No back pain. She continues to have profound weakness in her lower extremities, and is transferred via [place] and uses the bedpan. She does have sensation in her groin and lower extremities. Except as documented, all other systems were reviewed and are negative. [facility] Past Medical History Medical History (Updated 08/08/20 @ 19:23 by Nolvia English PA-C) Chronic anemia Chronic respiratory failure with hypoxia and hypercapnia Chronic venous stasis dermatitis Deep venous thrombosis Diastolic congestive heart failure Echocardiogram in February 2020 showed mild enlargement of the left ventricle, normal left ventricular function with an ejection fraction of 60 to 65%, mild LV wall thickness, and bilateral atrial enlargement. Discitis thoracic region (~06/2020) T4 diskitis/osteomyelitis. Essential hypertension Morbid
--- NOTE | 2020-08-08 17:37 | PC.NURSE ---
This patient, Trina Larkin, was admitted to IMU Room 212-01. Patient/family oriented to hospital policies and general routines including ID bracelet, bed and alarms, visiting hours, pain management, procedures, bathroom and other care routines, personal items, smoking policy, room service/diet, and visiting hours. Valuables list has been completed. Information on how to activate the Rapid Response Team has been discussed. Patient/Family are encouraged to report perceived risks to care and to ask questions if they do not understand what they are told or what they should do.
[2020-08-08] MEDS: LACTATED RINGERS 1,000 ML 75 ML IV CONT (19:24)
[2020-08-08 21:07] LABS: Alveolar/Arterial O2 Gradient 60.5 mmHg; Base Excess ABG 5.1 mEq/l (+/-2.0); Carboxyhemoglobin 0.2 % THb (0-2.0); Fractional Inspired Oxygen 35 %; HCO3 ABG 32.2 mEq/l (22.0-26.0); Methemoglobin ABG 0.3 %THb (0-1.5); Oxygen Content ABG 13.6 %vol (16.0-22.0); Oxygen Saturation ABG 97.9 % (95.0-100.0); Oxyhemoglobin 97.2 % THb (90.0-100.0); PO2 ABG 116.5 mmHg (80.0-100.0); PO2 FiO2 Ratio Arterial Blood 3.33 %; Reduced Hemoglobin 2.3 %THb (0-5.0); Total Hemoglobin 9.8 g/dL (12.0-18.0); pH ABG 7.331 (7.350-7.450)
[2020-08-08 21:09] LABS: Device NON-INVASIVE VENT; Modified Allen's Test Unable to perform; PCO2 ABG 62.4 mmHg (35.0-45.0); Site Drawn LEFT RADIAL
[2020-08-08 21:10] LABS: Non-Invasive Expiratory Pressure 8 CMH2O; Non-Invasive Inspiratory Pressure 18 CMH2O; Non-Invasive Vent Rate 16 /MIN
[2020-08-08] MEDS: GABAPENTIN 300 MG CAPSULE PO (22:16)
[2020-08-08] MEDS: SIMVASTATIN 20 MG TABLET PO (22:17)
[2020-08-09] VITALS (25 sets, daily range): BP systolic 107–140; BP diastolic 58–83; PULSE 75–122; RESP 19–23; TEMP 36–37.1; O2SAT 95–100
--- NOTE | 2020-08-09 01:02 | PCRCNOTE ---
Window of time for administration has passed. See next scheduled administration.
--- NOTE | 2020-08-09 02:23 | PCRCNOTE ---
CALLED TO PATIENT ROOM WHEN SHE PULLED OFF BIPAP MASK AND PIECES OF THE MASK WERE MISSING. MASK WAS CHANGED TO A SMALL MASK, WHICH FIT BETTER.
[2020-08-09] MEDS: ALBUTEROL SULFATE NEB 2.5 MG/0.5 ML INH 5 MG INHALATION ×4 (03:45→21:19)
[2020-08-09] MEDS: IPRATROPIUM BR 0.02% INH SOLN 0.5 MG/2.5 ML VIAL INHALATION ×4 (03:46→21:19)
[2020-08-09] MEDS: dilTIAZem HCL 60 MG TABLET PO ×3 (05:53→21:15)
[2020-08-09] MEDS: dilTIAZem HCL 30 MG TABLET PO ×3 (05:53→21:15)
[2020-08-09] MEDS: METOCLOPRAMIDE HCL 10 MG TABLET PO ×3 (05:53→17:21)
--- NOTE | 2020-08-09 07:34 | PM.IMPN ---
Progress Note: A&P Assessment and Plan (1) Acute on chronic respiratory failure with hypoxia and hypercapnia: Code(s): J96.21 - Acute and chronic respiratory failure with hypoxia; J96.22 - Acute and chronic respiratory failure with hypercapnia Status: Acute Assessment and Plan: Continuous BiPAP at night time PRN BiPAP during day time Continuous pulse ox to keep O2 sat at 94% switch to Oxygen by NC for meals Clear liquid diet Will check BNP Will repeat ABG in am SpCO2 improved Continue to monitor Supportive care (2) AMS (altered mental status): Code(s): R41.82 - Altered mental status, unspecified Status: Acute Assessment and Plan: Improved more alert Continue to monitor Most likely secondary to hypercarbia (3) Obstructive sleep apnea: Code(s): G47.33 - Obstructive sleep apnea (adult) (pediatric) Status: Acute Assessment and Plan: Continuous BiPAP at night time (4) Essential hypertension: Code(s): I10 - Essential (primary) hypertension Status: Acute Assessment and Plan: Continue home meds Stable (5) Paroxysmal atrial fibrillation: Code(s): I48.0 - Paroxysmal atrial fibrillation Status: Acute Assessment and Plan: Rate controlled Continue to monitor (6) Discitis thoracic region: Onset Date: ~06/2020 Code(s): M46.44 - Discitis, unspecified, thoracic region Status: Acute Assessment and Plan: Stable continue to monitor No complains about pain at the present time. (7) Chronic anemia: Code(s): D64.9 - Anemia, unspecified Status: Acute Assessment and Plan: Megaloblastic anemia Stable Continue to monitor Follow up in the outpatient setting. (8) Chronic diastolic heart failure: Code(s): I50.32 - Chronic diastolic (congestive) heart failure Status: Acute Assessment and Plan: I have reviewed 2DECHO from prior visit to the hospital Will obtain BNP Daily strict I/O's Continue to monitor Subjective Date/time seen: 08/09/20 07:34 Patient was seen and examined earlier in the morning. Afebrile, no new issues overnight. Was on continuous BiPAP At the time I came to the room she was sleeping but easily arousable to her name been called Review of Systems Review of Systems: Narrative: Unable to obtain as patient is wearing her BiPAP face mask, states that feels better though. Exam Narrative: Exam Narrative: Morbidly obese female in bed BiPAP on, NAD. Const: General: cooperative and other (Morbid obesity, NAD.) Orientation/consciousness: lethargic HENMT: Head: normal to inspection and normocephalic Ears: hearing grossly normal bilaterally General nose exam: Normal external nose present Face and sinus: normal facial exam Eyes: General: appearance normal, both eyes and all related structures Pupils: Equal, round and reactive pupils present EOM: EOMs intact bilaterally Neck: Neck: no lymphadenopathy and no JVD Resp: Effort & Inspection: normal respiratory effort Auscultation: clear to auscultation bilaterally Cardio: Jugular venous distension: no JVD Rate: regular rate Rhythm: regular rhythm Other: no murmurs, rubs or gallops. GI: Inspection: Pannus present and obesity GI Palp: Yes Soft to palpation and Yes No hepatosplenomegaly present Auscultation: normal bowel sounds Skin: General skin exam: normal color Lesions: no lesions Rashes: no rashes Wounds: no wounds Neuro: General: patient oriented x3 Cranial nerves: Yes CN's II-XII intact bilaterally and Yes Equal, round and reactive pupils present Cognition (Neuro): normal cognition Speech: normal speech Motor exam (neuro): 5/5 motor strength present throughout Objective Data Vital Signs Vital Signs: Vital Signs - 24 hr 08/08/20 09:57 08/08/20 09:59 08/08/20 13:29 Temperature 97.7 F Pulse Rate 85 91 90 Respiratory Rate 29 H 16 18 Blood Pressure 130/85 101/74 Pulse Oximetry 95 99 1
[2020-08-09 08:29] LABS: Glucose Point of Care 84 (65-105)
[2020-08-09] MEDS: LACTATED RINGERS 1,000 ML 75 ML IV CONT (09:08)
[2020-08-09] MEDS: MAGNESIUM OXIDE 400 MG TABLET PO (09:15)
[2020-08-09] MEDS: MULTIVITAMINS THERAPEUTIC TAB (*BKC) 1 TABLET PO (09:15)
[2020-08-09] MEDS: CHOLECALCIFEROL 1,000 UNITS TABLET 1000 UNITS PO (09:15)
[2020-08-09] MEDS: POTASSIUM CHLORIDE 20 MEQ TABLET.ER PO ×2 (09:15→17:21)
[2020-08-09] MEDS: FERROUS SULFATE 324 MG TABLET PO (09:15)
[2020-08-09] MEDS: METOPROLOL TARTRATE 12.5 MG TABLET PO ×2 (09:15→21:15)
[2020-08-09] MEDS: ATORVASTATIN 10 MG TABLET PO (09:15)
[2020-08-09] MEDS: APIXABAN 5 MG TABLET PO (09:15)
[2020-08-09] MEDS: DOCUSATE SODIUM 100 MG CAPSULE PO (09:15)
[2020-08-09] MEDS: SACCHAROMYCES BOULARDII 250 MG CAPSULE PO ×2 (09:15→17:21)
[2020-08-09] MEDS: FUROSEMIDE 40 MG TABLET PO ×2 (09:15→17:21)
[2020-08-09] MEDS: SPIRONOLACTONE 25 MG TABLET PO (09:16)
[2020-08-09] MEDS: polyethylene glycoL 3350 17 GM POWD.PACK PO (09:16)
[2020-08-09 12:56] LABS: NT Pro B Type Natriuretic Pept 5800 PG/ML (5-100)
[2020-08-09] MEDS: TOLNAFTATE 1% POWDER 45 GM BTL 1 APPLIC TOPICAL ×2 (13:26→17:21)
[2020-08-09] MEDS: FUROSEMIDE INJ 40 MG/4 ML VIAL IV PUSH (13:26)
[2020-08-09] MEDS: ACETAMINOPHEN 325 MG TABLET 650 MG PO (21:15)
[2020-08-09] MEDS: GABAPENTIN 300 MG CAPSULE PO (21:15)
[2020-08-10] VITALS (24 sets, daily range): BP systolic 101–127; BP diastolic 51–79; PULSE 64–98; RESP 16–24; TEMP 36.1–37.2; O2SAT 91–100
--- NOTE | 2020-08-10 | ECHO_ITS ---
Patient Info Name: Trina Larkin Age: 70 years : 1950 Gender: Female Ht: 62 in Wt: 257 lbs BSA: 2.33 m2 HR: 71 bpm BP: 123 / 76 mmHg Heart Rhythm: Atrial Fibrillation Technical Quality: Poor Exam Date: 08/10/2020 11:26 AM Exam Location: [facility] Pulmonary Patient Status: Inpatient Admit Date: 08/08/2020 Staff Ordering Physician: Tima Gutierres MD Oracle Database Manager: Debra Allison RDCS Attending Provider: Yoanna Penn MD Referring Physician: Bhavik STOKES; Exam Type: CA echo dop color flow w con Study Info Complete two-dimensional, color flow and Doppler transthoracic echocardiogram is performed with contrast to opacify the left ventricle and to improve the deliniation of the left ventricle endocardial borders. Contrast/Agitated Saline Contrast/Ag. Saline: Definity Amount: 5.00 ml Reason for Poor Study: patient body habitus Summary 1. Left ventricular systolic function is normal, estimated at 60-65%. 2. There is mildly increased left ventricular wall thickness. 3. Left atrial chamber dimension is moderately enlarged. 4. Right atrial chamber dimension is moderately enlarged. 5. There is mild mitral valve regurgitation. 6. There is mild to moderate tricuspid valve regurgitation. 7. Mild pulmonary hypertension, estimated pulmonary arterial systolic pressure is 45 mmHg. 8. There is borderline aortic valve stenosis but velocities, gradient, and appearance with a peak velocity of 173.34 cm/s, mean gradient of 7 mmHg, and aortic valve area of 1.61 cm2. 9. There is no aortic valve regurgitation. 10. The mitral valve annulus is mildly calcified. 11. There is small pericardial effusion. 12. Technically difficult study with limited views despite Definity contrast enhancement. Left Ventricle Left ventricular chamber dimension is normal. Left ventricular systolic function is normal, estimated at 60-65%. There is mildly increased left ventricular wall thickness. The left ventricular diastolic function is indeterminate. Right Ventricle Right ventricular chamber dimension is not well visualized. Left Atria Left atrial chamber dimension is moderately enlarged. Right Atria Right atrial chamber dimension is moderately enlarged. Aortic Valve The aortic valve is probable trileaflet. There is mild aortic valve sclerosis. There is borderline aortic valve stenosis but velocities, gradient, and appearance with a peak velocity of 173.34 cm/s, mean gradient of 7 mmHg, and aortic valve area of 1.61 cm2. There is no aortic valve regurgitation. Pulmonic Valve The pulmonic valve is not well visualized. There is mild pulmonic regurgitation. Mitral Valve The mitral valve has normal leaflets. There is mild mitral valve regurgitation. The mitral valve annulus is mildly calcified. Tricuspid Valve The tricuspid valve leaflets are normal. There is mild to moderate tricuspid valve regurgitation. Mild pulmonary hypertension, estimated pulmonary arterial systolic pressure is 45 mmHg. Pericardium/Pleural The pericardium appears normal. There is small pericardial effusion. Aorta The aortic root size at the sinus of Valsalva is normal. There is mild aortic atherosclerosis. Left Ventricular Outflow Tract Name Value Normal LVOT
[2020-08-10] MEDS: IPRATROPIUM BR 0.02% INH SOLN 0.5 MG/2.5 ML VIAL INHALATION ×4 (02:17→19:04)
[2020-08-10] MEDS: ALBUTEROL SULFATE NEB 2.5 MG/0.5 ML INH INHALATION ×4 (02:17→19:03)
[2020-08-10 04:57] LABS: Basophils Percent Auto 0.3 % (0.2-1.2); Eosinophils Absolute Auto 0.3 K/mm3 (0-0.3); Eosinophils Percent Auto 4.2 % (0-4.4); Hematocrit 24.9 % (37.0-47.0); Hemoglobin 7.3 g/dL (12.0-15.0); Immature Granulocyte Absolute 0.04 K/mm3 (0.00-0.031); Immature Granulocyte Percent A 0.5 % (0-0.5); Lymphocytes Absolute Auto 0.97 K/mm3 (0.9-3.2); Lymphocytes Percent Auto 13.2 % (18.3-44.2); Mean Corpuscular HGB Conc 29.3 g/dl (32-36); Mean Corpuscular Hemoglobin 29.3 pg (26-34); Monocytes Percent Auto 13.4 % (2.6-8.5); Neutrophils Percent Auto 68.4 % (45.5-73.1); Platelet Count Result 252 k/mm3 (150-375); Red Blood Count 2.49 M/mm3 (4.2-5.4); Red Cell Distribution Width 15.5 % (11.5-14.5); White Blood Count 7.3 K/mm3 (4.5-10.0)
[2020-08-10 05:11] LABS: Anion Gap 3 mmol/L (8-16); Blood Urea Nitrogen 13 mg/dL (7-17); Calcium 9.8 mg/dL (8.4-10.2); Carbon Dioxide 37 mmol/L (22-30); Chloride 95 mmol/L (98-107); Estimated CRCL calculation 110 ml/min; Estimated Glomerular Filt Rate > 60; Glucose 127 mg/dL (65-105); Potassium 3.2 mmol/L (3.4-5.0); Sodium 135 mmol/L (137-145)
[2020-08-10] MEDS: dilTIAZem HCL 60 MG TABLET PO ×3 (06:14→21:44)
[2020-08-10] MEDS: dilTIAZem HCL 30 MG TABLET PO ×3 (06:14→21:44)
[2020-08-10] MEDS: METOCLOPRAMIDE HCL 10 MG TABLET PO ×3 (06:14→18:18)
[2020-08-10] MEDS: polyethylene glycoL 3350 17 GM POWD.PACK PO ×2 (08:55→18:17)
[2020-08-10] MEDS: SALINE 0.65% NAS SOLN 44 ML BTL 1 SPRAY NASAL (08:56)
[2020-08-10] MEDS: DOCUSATE SODIUM 100 MG CAPSULE PO (08:56)
[2020-08-10] MEDS: SPIRONOLACTONE 25 MG TABLET PO (08:57)
[2020-08-10] MEDS: MULTIVITAMINS THERAPEUTIC TAB (*BKC) 1 TABLET PO (08:57)
[2020-08-10] MEDS: POTASSIUM CHLORIDE 20 MEQ TABLET.ER PO ×2 (08:58→18:19)
[2020-08-10] MEDS: ATORVASTATIN 10 MG TABLET PO (08:58)
[2020-08-10] MEDS: FERROUS SULFATE 324 MG TABLET PO (08:59)
[2020-08-10] MEDS: APIXABAN 5 MG TABLET PO (08:59)
[2020-08-10] MEDS: MAGNESIUM OXIDE 400 MG TABLET PO (08:59)
[2020-08-10] MEDS: CHOLECALCIFEROL 1,000 UNITS TABLET 1000 UNITS PO (08:59)
[2020-08-10] MEDS: SACCHAROMYCES BOULARDII 250 MG CAPSULE PO ×2 (08:59→18:18)
[2020-08-10] MEDS: METOPROLOL TARTRATE 12.5 MG TABLET PO ×2 (09:00→20:32)
[2020-08-10] MEDS: FUROSEMIDE 40 MG TABLET PO (09:00)
[2020-08-10] MEDS: TOLNAFTATE 1% POWDER 45 GM BTL 1 APPLIC TOPICAL ×2 (09:01→18:17)
[2020-08-10 10:44] LABS: pH ABG 7.272 (7.350-7.450)
[2020-08-10 10:46] LABS: HCO3 ABG 32.1 mEq/l (22.0-26.0); Oxygen Saturation ABG 96.2 % (95.0-100.0); PCO2 ABG 71.1 mmHg (35.0-45.0); PO2 ABG 107.7 mmHg (80.0-100.0)
[2020-08-10 10:48] LABS: Total Hemoglobin 0.5 g/dL (12.0-18.0)
[2020-08-10 10:49] LABS: Device NASAL CANNULA; Fractional Inspired Oxygen 28 %; Modified Allen's Test Pass; Oxygen Content ABG 12.4 %vol (16.0-22.0); Oxyhemoglobin 96.2 % THb (90.0-100.0); PO2 FiO2 Ratio Arterial Blood 3.85 %; Site Drawn RIGHT RADIAL
--- NOTE | 2020-08-10 11:00 | PM.CNPUL ---
Assessment and Plan Assessment and plan (1) Acute and chronic respiratory failure with hypercapnia: Code(s): J96.22 - Acute and chronic respiratory failure with hypercapnia Status: Acute Assessment and Plan: - will change her to AVAPS mode: TV 420, RR 20, Pmax 25, P min 10, Itime 1.0, Rise of 3, May need further adjustments until ABG normalizes - repeat ABG this afternoon on those settings and daily Qam - decrease lasix to 40 mg daily - will add diamox 250 mg PO daily - continue spironlactone 25 mg daily - continue duonebs Q6h - will add pulmicort 0.5 mg bid - avoid all sedatives and narcotics (2) Chronic diastolic heart failure: Code(s): I50.32 - Chronic diastolic (congestive) heart failure Status: Acute (3) Asthma: Code(s): J45.909 - Unspecified asthma, uncomplicated Status: Acute History of Present Illness History of Present Illness Consult date: 08/10/20 Chief complaint: Lethargy, hypoxia. Narrative: 70 y/o morbidly obese female with severe YESENIA, diastolic CHF, Asthma bed bound at group home presents with acute on chronic hypercapnic respiratory failure. She reports no infectious symptoms only that her oxygen levels were low at the group home. She wears Trilogy at night but unfortunately her machine is not with her and we do not know her settings. She's been on BIPAP since admission 09/07 but she's lethargic this morning and her ABG 7.27/71/107. Review of Systems Review of Systems: All systems reviewed & are unremarkable except as noted in HPI and below PMFSH Past Medical History Medical History (Updated 08/10/20 @ 11:06 by Tima Gutierres MD) Chronic anemia Chronic respiratory failure with hypoxia and hypercapnia Chronic venous stasis dermatitis Deep venous thrombosis Diastolic congestive heart failure Echocardiogram in February 2020 showed mild enlargement of the left ventricle, normal left ventricular function with an ejection fraction of 60 to 65%, mild LV wall thickness, and bilateral atrial enlargement. Discitis thoracic region (~06/2020) T4 diskitis/osteomyelitis. Essential hypertension Morbid obesity Obesity hypoventilation syndrome Obstructive sleep apnea Paroxysmal atrial fibrillation Staphylococcus aureus bacteremia (~03/2020) Blood cultures positive for oxacillin sensitive Staph aureus in March, May, and June 2020. Surgical History Surgical History (Updated 08/08/20 @ 19:16 by Nolvia English PA-C) History of appendectomy History of hysterectomy History of ventral hernia repair Family History Family History Mother Hypertension Father Hypertension Sibling Esophagus cancer Father Diabetes mellitus Sibling Heart disease Social History Social History (Updated 08/08/20 @ 19:18 by Nolvia English PA-C) Social History: Surrogate decision maker: Rosa Bullard, daughter. Code status: Full code. Smoking status: Former smoker Additional smoking assessment comments: Remote smoking history, quit greater than 30 years ago. Alcohol intake: never Substance use: never Living arrangements: group home Additional living arrangements comments: Currently living at [facility]. Additional occupation/education comments: Retired. Spiritual care concerns: No Meds Home Medications and Allergies Home Medications Medication Instructions Recorded Confirmed Type hydrocodone 5 mg-acetaminophen 325 1 tablet PO Q4H PRN #180 tablet 05/07/20 08/08/20 Rx mg tablet Adult One Daily Multivitamin 1 tab-cap PO DAILY 08/08/20 08/08/20 History Colace 100 mg PO DAILY 08/08/20 08/08/20 History [place] Nasal 0.65 % INHALATION PRN PRN 08/08/20 08/08/20 History Saccharomyces boulardii [Florastor] 250 mg PO BID 08/08/20 08/08/20 History apixaban [Eliquis] 5 mg PO DAILY 08/08/20 08/08/20 History atorvastatin 10 mg PO DAILY 08/08/20 08/08/20 History cefazolin
--- NOTE | 2020-08-10 12:02 | PM.IMPN ---
Progress Note: A&P Assessment and Plan (1) Acute and chronic respiratory failure with hypercapnia: Code(s): J96.22 - Acute and chronic respiratory failure with hypercapnia Status: Acute Assessment and Plan: On continuous BiPAP at night time Oxygen by NC during day time ABG noted Follow Pulmonology recs. (2) Chronic diastolic heart failure: Code(s): I50.32 - Chronic diastolic (congestive) heart failure Status: Acute Assessment and Plan: 2DECHO reviewed Diuresing I/O's daily Will do fluid restriction as well. (3) AMS (altered mental status): Code(s): R41.82 - Altered mental status, unspecified Status: Acute Assessment and Plan: Resolved Nate to her baseline (4) Essential hypertension: Code(s): I10 - Essential (primary) hypertension Status: Acute Assessment and Plan: Continue home meds. Continue to monitor Stable (5) Acute on chronic respiratory failure with hypoxia and hypercapnia: Code(s): J96.21 - Acute and chronic respiratory failure with hypoxia; J96.22 - Acute and chronic respiratory failure with hypercapnia Status: Acute Assessment and Plan: Continue BiPAP at night time Oxygen during day time Supportive care. (6) UTI (urinary tract infection): Qualifiers: Urinary tract infection type: site unspecified Code(s): N39.0 - Urinary tract infection, site not specified Status: Acute Assessment and Plan: Continue antibiotics Deescalate as needed (7) Paroxysmal atrial fibrillation: Code(s): I48.0 - Paroxysmal atrial fibrillation Status: Acute Assessment and Plan: Continue to monitor. Subjective Date/time seen: 08/10/20 12:02 Patient seen and examined. No new issues overnight On continuous BiPAP overnight. Review of Systems Review of Systems: Narrative: No new issues, as per HPI. Constitutional: Constitutional: Reports as per HPI and Reports no additional constitutional complaints Eyes: Eyes: Reports as per HPI ENT: Reports system reviewed and no additional complaints, except as documented and Reports as per HPI Cardiovascular: Cardiovascular: Reports as per HPI and Reports no additional cardiovascular complaints Respiratory: Respiratory: Reports as per HPI and Reports no additional respiratory complaints Gastrointestinal: Gastrointestinal: Reports as per HPI and Reports no additional gastrointestinal complaints Musculoskeletal: Musculoskeletal: Reports no additional musculoskeletal complaints and Reports as per HPI Integumentary/Breasts: Skin/Breast: Reports system reviewed and no additional complaints, except as docu and Reports as per HPI Neurologic: Reports system reviewed and no additional complaints, except as documented and Reports as per HPI Exam Narrative: Exam Narrative: Morbidly obese, in bed NAD. Const: General: comfortable, no acute distress, alert and awake Nutritional Appearance: overweight Orientation/consciousness: patient oriented x3 HENMT: Head: normocephalic Ears: hearing grossly normal bilaterally General nose exam: Normal external nose present Face and sinus: normal facial exam Mouth: Yes Normal oral and palatal mucosa present Eyes: General: appearance normal, both eyes and all related structures Pupils: Equal, round and reactive pupils present EOM: EOMs intact bilaterally Neck: Neck: no lymphadenopathy and no JVD Lymphatic: no lymphadenopathy noted Resp: Effort & Inspection: normal respiratory effort Auscultation: clear to auscultation bilaterally Cardio: Jugular venous distension: no JVD Rate: regular rate Rhythm: regular rhythm Heart sounds: S1 normal heart sound present and S2 normal heart sound present GI: Inspection: Pannus present and obesity GI Palp: Yes Soft to palpation and Yes No hepatosplenomegaly present Skin: General skin exam: normal color Wounds: no wounds Neuro: General: patient oriented x3 Mounter Sousaphones
[2020-08-10 13:52] LABS: SARS-CoV-2 RNA PCR Negative
[2020-08-10] MEDS: acetaZOLAMIDE TAB 250 MG TABLET PO (14:09)
[2020-08-10] MEDS: ACETAMINOPHEN 325 MG TABLET 650 MG PO (14:09)
[2020-08-10] MEDS: ceFAZolin 2 GM/D5W 50 ML 2 GM/50 ML BAG IVPB ×2 (14:10→21:53)
--- NOTE | 2020-08-10 15:10 | PC.NURSE ---
Received from [facility] / via bed.
--- NOTE | 2020-08-10 15:16 | PC.NURSE ---
This patient, Trina Larkin, was transferred to [facility] on 08/10/20 at 1510. Personal belongings sent with patient. Report given to [place]. Appropriate documentation sent with patient.
[2020-08-10 17:58] LABS: Base Excess ABG 7.4 mEq/l (+/-2.0); HCO3 ABG 34.2 mEq/l (22.0-26.0); Total Hemoglobin 8.5 g/dL (12.0-18.0)
[2020-08-10 17:59] LABS: Alveolar/Arterial O2 Gradient 56.1 mmHg
[2020-08-10 18:00] LABS: Carboxyhemoglobin 0.3 % THb (0-2.0)
[2020-08-10 18:01] LABS: Methemoglobin ABG 0.5 %THb (0-1.5); Oxygen Content ABG 11.8 %vol (16.0-22.0); Reduced Hemoglobin 2.2 %THb (0-5.0)
[2020-08-10 18:02] LABS: Fractional Inspired Oxygen 35 %; Modified Allen's Test Pass; Site Drawn RIGHT RADIAL
[2020-08-10 18:04] LABS: PO2 ABG 119.1 mmHg (80.0-100.0)
[2020-08-10 18:07] LABS: Non-Invasive Vent Rate 20 /MIN
[2020-08-10 18:08] LABS: pH ABG 7.346 (7.350-7.450)
[2020-08-10 18:09] LABS: Device NON-INVASIVE VENT
[2020-08-10] MEDS: FUROSEMIDE INJ 40 MG/4 ML VIAL IV PUSH (18:17)
[2020-08-10] MEDS: BUDESONIDE RESPULE NEB 0.5 MG/2 ML AMP INHALATION (19:04)
[2020-08-10] MEDS: GABAPENTIN 300 MG CAPSULE PO (20:32)
[2020-08-10 20:47] LABS: Glucose Point of Care 152 (65-105)
[2020-08-10] MEDS: HYDROcodone/acetaminophen (*CRX) 5-325 MG TABLET 1 TAB PO (21:44)
[2020-08-11] VITALS (18 sets, daily range): BP systolic 103–140; BP diastolic 51–79; PULSE 22–106; RESP 17–74; TEMP 35.8–36.6; O2SAT 96–100
[2020-08-11] MEDS: IPRATROPIUM BR 0.02% INH SOLN 0.5 MG/2.5 ML VIAL INHALATION ×4 (02:10→19:37)
[2020-08-11] MEDS: ALBUTEROL SULFATE NEB 2.5 MG/0.5 ML INH INHALATION ×4 (02:10→19:37)
[2020-08-11] MEDS: METOCLOPRAMIDE HCL 10 MG TABLET PO ×3 (06:27→16:38)
[2020-08-11] MEDS: dilTIAZem HCL 60 MG TABLET PO ×3 (06:27→21:21)
[2020-08-11] MEDS: ceFAZolin 2 GM/D5W 50 ML 2 GM/50 ML BAG IVPB ×2 (06:27→13:35)
[2020-08-11] MEDS: dilTIAZem HCL 30 MG TABLET PO ×3 (06:27→21:21)
[2020-08-11 06:29] LABS: Basophils Percent Auto 0.3 % (0.2-1.2); Eosinophils Absolute Auto 0.4 K/mm3 (0-0.3); Hematocrit 25.7 % (37.0-47.0); Hemoglobin 7.6 g/dL (12.0-15.0); Immature Granulocyte Absolute 0.03 K/mm3 (0.00-0.031); Immature Granulocyte Percent A 0.5 % (0-0.5); Lymphocytes Absolute Auto 1.17 K/mm3 (0.9-3.2); Lymphocytes Percent Auto 18.1 % (18.3-44.2); Mean Corpuscular HGB Conc 29.6 g/dl (32-36); Mean Corpuscular Volume 101.6 fl (80-100); Monocytes Percent Auto 14.9 % (2.6-8.5); Neutrophils Absolute Auto 3.9 K/mm3 (1.3-6.7); Neutrophils Percent Auto 60.2 % (45.5-73.1); Platelet Count Result 262 k/mm3 (150-375); Red Blood Count 2.53 M/mm3 (4.2-5.4); Red Cell Distribution Width 15.9 % (11.5-14.5); White Blood Count 6.5 K/mm3 (4.5-10.0)
[2020-08-11] MEDS: FUROSEMIDE INJ 40 MG/4 ML VIAL IV PUSH ×2 (08:44→16:38)
[2020-08-11] MEDS: POTASSIUM CHLORIDE 20 MEQ TABLET.ER PO ×2 (08:45→16:38)
[2020-08-11] MEDS: MULTIVITAMINS THERAPEUTIC TAB (*BKC) 1 TABLET PO (08:45)
[2020-08-11] MEDS: ACETAMINOPHEN 325 MG TABLET 650 MG PO ×2 (08:45→21:21)
[2020-08-11] MEDS: FERROUS SULFATE 324 MG TABLET PO (08:50)
[2020-08-11] MEDS: ATORVASTATIN 10 MG TABLET PO (08:50)
[2020-08-11] MEDS: METOPROLOL TARTRATE 12.5 MG TABLET PO ×2 (08:50→21:21)
[2020-08-11] MEDS: acetaZOLAMIDE TAB 250 MG TABLET PO (08:51)
[2020-08-11] MEDS: SACCHAROMYCES BOULARDII 250 MG CAPSULE PO ×2 (08:51→16:38)
[2020-08-11] MEDS: CHOLECALCIFEROL 1,000 UNITS TABLET 1000 UNITS PO (08:51)
[2020-08-11] MEDS: SPIRONOLACTONE 25 MG TABLET PO (08:51)
[2020-08-11] MEDS: APIXABAN 5 MG TABLET PO (08:51)
[2020-08-11] MEDS: MAGNESIUM OXIDE 400 MG TABLET PO (08:52)
[2020-08-11] MEDS: TOLNAFTATE 1% POWDER 45 GM BTL 1 APPLIC TOPICAL ×2 (08:52→16:39)
[2020-08-11 09:18] LABS: Alveolar/Arterial O2 Gradient 17.7 mmHg; Carboxyhemoglobin 0.3 % THb (0-2.0); Fractional Inspired Oxygen 28 %; HCO3 ABG 36.4 mEq/l (22.0-26.0); Methemoglobin ABG 0.5 %THb (0-1.5); Oxygen Content ABG 12.8 %vol (16.0-22.0); Oxygen Saturation ABG 95.5 % (95.0-100.0); Oxyhemoglobin 94.6 % THb (90.0-100.0); PO2 ABG 90.3 mmHg (80.0-100.0); PO2 FiO2 Ratio Arterial Blood 3.23 %; Reduced Hemoglobin 4.6 %THb (0-5.0); Total Hemoglobin 9.5 g/dL (12.0-18.0)
[2020-08-11 09:19] LABS: Device NASAL CANNULA; Modified Allen's Test Pass; PCO2 ABG 77.7 mmHg (35.0-45.0); Site Drawn LEFT RADIAL; pH ABG 7.288 (7.350-7.450)
[2020-08-11] MEDS: BUDESONIDE RESPULE NEB 0.5 MG/2 ML AMP INHALATION (09:20)
[2020-08-11 13:21] LABS: PCO2 ABG 64.3 mmHg (35.0-45.0); pH ABG 7.361 (7.350-7.450)
[2020-08-11 13:22] LABS: Base Excess ABG 8.2 mEq/l (+/-2.0); HCO3 ABG 35.6 mEq/l (22.0-26.0); Oxygen Saturation ABG 98.7 % (95.0-100.0); PO2 ABG 143.1 mmHg (80.0-100.0); Total Hemoglobin 11.8 g/dL (12.0-18.0)
[2020-08-11 13:23] LABS: Alveolar/Arterial O2 Gradient 31.7 mmHg
[2020-08-11 13:25] LABS: Carboxyhemoglobin 0.3 % THb (0-2.0); Fractional Inspired Oxygen 35 %; Methemoglobin ABG 0.4 %THb (0-1.5); Modified Allen's Test Pass; Oxyhemoglobin 97.7 % THb (90.0-100.0); PO2 FiO2 Ratio Arterial Blood 4.09 %; Reduced Hemoglobin 1.6 %THb (0-5.0); Site Drawn LEFT RADIAL
[2020-08-11 13:26] LABS: Device NON-INVASIVE VENT; Oxygen Content ABG 16.5 %vol (16.0-22.0)
[2020-08-11 13:27] LABS: Non-Invasive Expiratory Pressure 8 CMH2O; Non-Invasive Inspiratory Pressure 24 CMH2O; Non-Invasive Vent Rate 18 /MIN
--- NOTE | 2020-08-11 13:30 | PC.NURSE ---
Pt ABGs critical. Called to Dr Stevens. She states she discussed pt's condition with Dr Gutierres and recommend pt should be compliant with therapy, needs to wear the bipap all night.
--- NOTE | 2020-08-11 16:19 | PM.IMPN ---
Progress Note: A&P Assessment and Plan (1) Acute and chronic respiratory failure with hypercapnia: Code(s): J96.22 - Acute and chronic respiratory failure with hypercapnia Status: Acute Assessment and Plan: Continue ABAV at night time, continuous. Discussed with Complex Care Nurse Oxygen during day time For naps has to be on ABAV machine. (2) Chronic diastolic heart failure: Code(s): I50.32 - Chronic diastolic (congestive) heart failure Status: Acute Assessment and Plan: Continue diuresis. (3) Essential hypertension: Code(s): I10 - Essential (primary) hypertension Status: Acute Assessment and Plan: Continue to monitor. Continue home meds. (4) Paroxysmal atrial fibrillation: Code(s): I48.0 - Paroxysmal atrial fibrillation Status: Acute Assessment and Plan: Rate control, anticoagulated. Apixaban + Diltiazem. (5) Obstructive sleep apnea: Code(s): G47.33 - Obstructive sleep apnea (adult) (pediatric) Status: Acute Assessment and Plan: On ABAV at night time. Continuous. (6) Acute on chronic respiratory failure with hypoxia and hypercapnia: Code(s): J96.21 - Acute and chronic respiratory failure with hypoxia; J96.22 - Acute and chronic respiratory failure with hypercapnia Status: Acute Assessment and Plan: Daily ABG Continue CPAP at night time Restrictive lung disease is contributing as well. (7) UTI (urinary tract infection): Qualifiers: Urinary tract infection type: site unspecified Code(s): N39.0 - Urinary tract infection, site not specified Status: Acute Assessment and Plan: Discontinued Cefazolin. Started on Imipenem as cx growing Pseudomona which is sensitive to this antibiotic choice. Subjective Date/time seen: 08/11/20 16:19 ABG with increase PCO2, patient removes ABAV machine at night time, afebrile. Review of Systems Review of Systems: Narrative: No complains. Constitutional: Constitutional: Reports as per HPI and Reports no additional constitutional complaints ENT: Reports system reviewed and no additional complaints, except as documented and Reports as per HPI Cardiovascular: Cardiovascular: Reports as per HPI and Reports no additional cardiovascular complaints Respiratory: Comments: Feeling sob. Gastrointestinal: Gastrointestinal: Reports as per HPI and Reports no additional gastrointestinal complaints Musculoskeletal: Musculoskeletal: Reports no additional musculoskeletal complaints and Reports as per HPI Neurologic: Reports system reviewed and no additional complaints, except as documented and Reports as per HPI Exam Narrative: Exam Narrative: Chronically ill looking, NAD, in bed. Const: General: comfortable and no acute distress Nutritional Appearance: overweight Orientation/consciousness: patient oriented x3 Limitations: physical limitations Other: Morbid obesity. HENMT: Head: normal to inspection and normocephalic Ears: hearing grossly normal bilaterally General nose exam: Normal external nose present Face and sinus: normal facial exam Eyes: General: appearance normal, both eyes and all related structures Pupils: Equal, round and reactive pupils present EOM: EOMs intact bilaterally Neck: Neck: full ROM, no lymphadenopathy and no JVD Resp: Effort & Inspection: normal respiratory effort Auscultation: clear to auscultation bilaterally Cardio: Jugular venous distension: no JVD Rate: regular rate Rhythm: regular rhythm Heart sounds: S1 normal heart sound present and S2 normal heart sound present GI: Inspection: Pannus present and obesity GI Palp: Yes Soft to palpation Skin: Lesions: no lesions Rashes: no rashes Wounds: no wounds Neuro: General: patient oriented x3 Cranial nerves: Yes CN's II-XII intact bilaterally and Yes Equal, round and reactive pupils present Extrem: Other: B/L LE edema. Objective Data Vital Signs Vital Signs:
--- NOTE | 2020-08-11 17:14 | PM.PNPUL ---
Progress Note: A&P Assessment and Plan (1) Acute and chronic respiratory failure with hypercapnia: Code(s): J96.22 - Acute and chronic respiratory failure with hypercapnia Status: Acute Assessment and Plan: Due to severe obesity, severe YESENIA - She is not tolerating AVAPS, switching to BIPAP 24/8 with backup rate of 18 has helped CO2 clearance much better. Will see if that continues with daily AM ABG - continue BIPAP QHS and while napping - I discontinued her hydrocodone and gabapentin and order Lyrica instead as this is less sedating and less to affect repiratory drive - titrate oxygen to keep sats 90-93% (2) Asthma: Code(s): J45.909 - Unspecified asthma, uncomplicated Status: Acute Assessment and Plan: Stable, no signs of exacertiona (3) Obstructive sleep apnea: Code(s): G47.33 - Obstructive sleep apnea (adult) (pediatric) Status: Acute Assessment and Plan: Likely very severe, may have central apneas as well. BIPAP seems to be good mode for her right now. Subjective Date/time seen: 08/11/20 17:14 Interval history: The patient's hypercapnia worsened this morning. She says she wore the NIV with AVAPS mode all night RT said her ABG was done off NIV this morning. She's lethargic but easily arouses. I tried adjusting her settings on AVAPS but it was clear that her minute ventilation and CO2 clearance was not as good as on BIPAP 24/8, backup rate of 18, rise of 3 and 35% FiO2 Review of Systems Review of Systems: All systems reviewed & are unremarkable except as noted in HPI and below Exam Const: General: no acute distress Eyes: General: appearance normal, both eyes and all related structures Neck: Neck: supple Resp: Auscultation: clear to auscultation bilaterally and diminished lung sounds Cardio: Rate: regular rate Rhythm: regular rhythm Heart sounds: no gallops and no murmurs Neuro: Other: lethagic but arouses and answers all questions appropriately Extrem: General: normal to inspection, normal exam except as noted, no edema and no pedal edema Psych: Mental Status: mental status grossly normal Objective Data Vital Signs Vital Signs: Vital Signs - 24 hr 08/10/20 19:04 08/10/20 19:15 08/10/20 19:19 Temperature Pulse Rate 68 71 71 Respiratory Rate 22 H 21 H 21 H Blood Pressure Pulse Oximetry 98 98 08/10/20 20:00 08/10/20 20:32 08/10/20 22:44 Temperature 36.1 C L Pulse Rate 69 69 67 Respiratory Rate 16 20 Blood Pressure 115/62 Pulse Oximetry 97 98 08/11/20 00:00 08/11/20 02:11 08/11/20 02:22 Temperature 36.6 C Pulse Rate 70 73 67 Respiratory Rate 17 19 21 H Blood Pressure 103/66 Pulse Oximetry 100 98 08/11/20 06:40 08/11/20 08:50 08/11/20 08:52 Temperature 36.1 C L Pulse Rate 84 84 74 Respiratory Rate 18 20 Blood Pressure 140/51 L Pulse Oximetry 98 96 08/11/20 09:22 08/11/20 14:00 08/11/20 14:10 Temperature 36.3 C L Pulse Rate 72 106 H 74 Respiratory Rate 20 20 20 Blood Pressure 126/72 Pulse Oximetry 97 100 98 08/11/20 14:39 Temperature Pulse Rate 74 Respiratory Rate 20 Blood Pressure Pulse Oximetry Intake/Output Intake/Output: Intake & Output 08/08/20 08/09/20 08/10/20 08/11/20 23:59 23:59 23:59 23:59 Intake Total 50 2850 1300 1220 Output Total 450 Balance -400 2850 1300 1220 Meds/Results Medications: Active Medications Generic Name Dose Route Start Last Admin Trade Name Freq PRN Reason Stop Dose Admin Acetaminophen 650 mg 08/09/20 20:24 08/11/20 08:45 Tylenol Tablet PO 650 mg Q4H PRN Administration Headache Hydrocodone Bitart/Acetaminophen 1 tab 08/10/20 12:05 08/10/20 21:44 [place] 5-325 Mg PO 1 tab Q4H PRN Administration Pain 4-6 Acetazolamide 250 mg 08/10/20 11:00 08/11/20 08:51 Diamox Tab PO 250 mg QAM DEWAYNE Administration Albuterol 2.5 mg 08/10/20 02:00 08/11/20 14:10 Albuterol Sulf Neb 2.5mg/0.5ml INHA
[2020-08-11] MEDS: PREGABALIN (*CRX) 75 MG CAPSULE PO (21:20)
[2020-08-11 21:25] LABS: Add Urine Microscopic? YES; Appearance Urine Cloudy (Clear); Bacteria Urine Trace /hpf; Bilirubin Urine Negative (Negative); Blood Urine Negative (Negative); Color Urine Yellow (Yellow); Glucose Urine UA Negative (Negative); Ketones Urine Negative (Negative); Leukocyte Esterase Ur 3+ LEU/UL (Negative); Mucus Urine Rare /lpf; Nitrate Urine Negative (Negative); Protein Urine Negative (Negative); Specific Grav Ur 1.008 (1.001-1.035); Urobilinogen Urine Negative mg/dL (<2.0); WBC Urine >75 /hpf
[2020-08-12] VITALS (17 sets, daily range): BP systolic 99–122; BP diastolic 50–76; PULSE 64–100; RESP 18–22; TEMP 36.2–36.8; O2SAT 92–100
[2020-08-12] MEDS: IPRATROPIUM BR 0.02% INH SOLN 0.5 MG/2.5 ML VIAL INHALATION ×4 (01:10→20:07)
[2020-08-12] MEDS: ALBUTEROL SULFATE NEB 2.5 MG/0.5 ML INH INHALATION ×4 (01:10→20:07)
[2020-08-12] MEDS: SALINE 0.65% NAS SOLN 44 ML BTL 1 SPRAY NASAL (03:42)
[2020-08-12] MEDS: ACETAMINOPHEN 325 MG TABLET 650 MG PO (05:18)
[2020-08-12 05:24] LABS: Basophils Percent Auto 0.6 % (0.2-1.2); Eosinophils Absolute Auto 0.4 K/mm3 (0-0.3); Eosinophils Percent Auto 5.3 % (0-4.4); Hematocrit 24.4 % (37.0-47.0); Hemoglobin 7.4 g/dL (12.0-15.0); Immature Granulocyte Absolute 0.03 K/mm3 (0.00-0.031); Immature Granulocyte Percent A 0.4 % (0-0.5); Lymphocytes Absolute Auto 1.13 K/mm3 (0.9-3.2); Lymphocytes Percent Auto 16.1 % (18.3-44.2); Mean Corpuscular HGB Conc 30.3 g/dl (32-36); Mean Corpuscular Hemoglobin 30.3 pg (26-34); Mean Platelet Volume 8.8 fl (7.4-10.4); Monocytes Absolute Auto 0.9 K/mm3 (0.1-0.6); Neutrophils Absolute Auto 4.5 K/mm3 (1.3-6.7); Neutrophils Percent Auto 64.6 % (45.5-73.1); Platelet Count Result 225 k/mm3 (150-375); Red Blood Count 2.44 M/mm3 (4.2-5.4); Red Cell Distribution Width 15.9 % (11.5-14.5)
[2020-08-12] MEDS: dilTIAZem HCL 60 MG TABLET PO ×3 (05:44→21:09)
[2020-08-12] MEDS: dilTIAZem HCL 30 MG TABLET PO ×3 (05:44→21:10)
[2020-08-12] MEDS: METOCLOPRAMIDE HCL 10 MG TABLET PO ×3 (06:39→16:35)
[2020-08-12] MEDS: acetaZOLAMIDE TAB 250 MG TABLET PO (08:42)
[2020-08-12] MEDS: SACCHAROMYCES BOULARDII 250 MG CAPSULE PO ×2 (08:42→16:35)
[2020-08-12] MEDS: POTASSIUM CHLORIDE 20 MEQ TABLET.ER PO ×2 (08:42→16:35)
[2020-08-12] MEDS: SPIRONOLACTONE 25 MG TABLET PO (08:42)
[2020-08-12] MEDS: APIXABAN 5 MG TABLET PO (08:42)
[2020-08-12] MEDS: FERROUS SULFATE 324 MG TABLET PO (08:42)
[2020-08-12] MEDS: ATORVASTATIN 10 MG TABLET PO (08:43)
[2020-08-12] MEDS: MAGNESIUM OXIDE 400 MG TABLET PO (08:43)
[2020-08-12] MEDS: PREGABALIN (*CRX) 75 MG CAPSULE PO ×2 (08:43→21:09)
[2020-08-12] MEDS: CHOLECALCIFEROL 1,000 UNITS TABLET 1000 UNITS PO (08:43)
[2020-08-12] MEDS: FUROSEMIDE INJ 40 MG/4 ML VIAL IV PUSH ×2 (08:43→16:35)
[2020-08-12] MEDS: TOLNAFTATE 1% POWDER 45 GM BTL 1 APPLIC TOPICAL ×2 (08:43→16:35)
[2020-08-12] MEDS: MULTIVITAMINS THERAPEUTIC TAB (*BKC) 1 TABLET PO (08:43)
[2020-08-12] MEDS: METOPROLOL TARTRATE 12.5 MG TABLET PO ×2 (08:46→21:10)
[2020-08-12] MEDS: BUDESONIDE RESPULE NEB 0.5 MG/2 ML AMP INHALATION ×3 (08:55→20:07)
[2020-08-12 09:05] LABS: Anion Gap 4 mmol/L (8-16); Blood Urea Nitrogen 10 mg/dL (7-17); Calcium 9.6 mg/dL (8.4-10.2); Carbon Dioxide 38 mmol/L (22-30); Chloride 93 mmol/L (98-107); Estimated CRCL calculation 81 ml/min; Estimated Glomerular Filt Rate > 60; Glucose 139 mg/dL (65-105); Potassium 3.1 mmol/L (3.4-5.0); Sodium 135 mmol/L (137-145)
[2020-08-12] MEDS: HYDROcodone/acetaminophen (*CRX) 5-325 MG TABLET 1 TAB PO (10:37)
--- NOTE | 2020-08-12 12:01 | PM.IMPN ---
Progress Note: A&P Assessment and Plan (1) Acute and chronic respiratory failure with hypercapnia: Code(s): J96.22 - Acute and chronic respiratory failure with hypercapnia Status: Acute Assessment and Plan: Improved Continuous CPAP at night time Continuous pulse ox Appreciate Pathology Teacher note (2) Acute on chronic respiratory failure with hypoxia and hypercapnia: Code(s): J96.21 - Acute and chronic respiratory failure with hypoxia; J96.22 - Acute and chronic respiratory failure with hypercapnia Status: Acute Assessment and Plan: On supplemental oxygen during the day CPAP for naps (3) UTI (urinary tract infection): Qualifiers: Urinary tract infection type: site unspecified Code(s): N39.0 - Urinary tract infection, site not specified Status: Acute Assessment and Plan: On Gentamicin + Imipenem ID consulted, appreciate note. (4) Discitis thoracic region: Onset Date: ~06/2020 Code(s): M46.44 - Discitis, unspecified, thoracic region Status: Acute Assessment and Plan: Continue Cefazolin chcf. (5) Obstructive sleep apnea: Code(s): G47.33 - Obstructive sleep apnea (adult) (pediatric) Status: Acute Assessment and Plan: Continuous CPAP at night time. (6) Paroxysmal atrial fibrillation: Code(s): I48.0 - Paroxysmal atrial fibrillation Status: Acute Assessment and Plan: Rate controlled. (7) Essential hypertension: Code(s): I10 - Essential (primary) hypertension Status: Acute Assessment and Plan: Well controlled. (8) AMS (altered mental status): Code(s): R41.82 - Altered mental status, unspecified Status: Acute Assessment and Plan: Resolved. Subjective Date/time seen: 08/12/20 12:01 Patient seen and examined earlier today. Started on Carbapenem for UTI ID consulted, consult note noted. Afebrile Tolerated CPAP all night Back pain Review of Systems Constitutional: Comments: no fevers, no rigors, no chills. Eyes: Comments: No vision changes. ENT: Comments: No hearing changes, no ear pain. Cardiovascular: Comments: No chest pain. Respiratory: Comments: No sob, no cough, no sputum production. Gastrointestinal: Comments: no n/v/abdominal pain had diarrhea Genitourinary: Comments: no pain or burning with urination. Musculoskeletal: Comments: Lower back pain. Integumentary/Breasts: Comments: no wounds, no rashes. Neurologic: Comments: no headaches, no motor or sensitive deficit. Exam Narrative: Exam Narrative: Morbidly obese in bed NAD, awake, alert. Const: General: cooperative, comfortable and no acute distress Nutritional Appearance: obese Other: Chronically ill looking. HENMT: Head: normal to inspection and normocephalic Ears: hearing grossly normal bilaterally General nose exam: Normal external nose present Face and sinus: normal facial exam Mouth: Yes Normal oral and palatal mucosa present Eyes: General: appearance normal, both eyes and all related structures Pupils: Equal, round and reactive pupils present EOM: EOMs intact bilaterally Neck: Neck: no lymphadenopathy and no JVD Resp: Auscultation: clear to auscultation bilaterally and diminished lung sounds Other: Diminished throughout. Cardio: Jugular venous distension: no JVD Rate: regular rate Rhythm: regular rhythm Heart sounds: S1 normal heart sound present and S2 normal heart sound present GI: Inspection: obesity GI Palp: Yes Soft to palpation and Yes No hepatosplenomegaly present Skin: Other: Chronic skin changes on B/L LE Neuro: General: patient oriented x3 Cranial nerves: Yes CN's II-XII intact bilaterally and Yes Equal, round and reactive pupils present Motor exam (neuro): 5/5 motor strength present throughout Objective Data Vital Signs Vital Signs: Vital Signs - 24 hr 08/11/20 14:00 08/11/20 14:10 08/11/20 14:39 Temperature 97.3 F L Pul
--- NOTE | 2020-08-12 12:56 | PCRCNOTE ---
FAXED NEW BIPAP/TRILOGY SETTINGS (15/07 F1) TO [facility] AT [phone].
--- NOTE | 2020-08-12 13:57 | WPDINFPN2 ---
Progress Note: A&P Assessment and Plan (1) UTI (urinary tract infection): Qualifiers: Urinary tract infection type: site unspecified Code(s): N39.0 - Urinary tract infection, site not specified Status: Acute Assessment and Plan: uti REC Imipenem and gent x 3 days Subjective Date/time seen: 08/12/20 13:57 Objective Data Vital Signs Vital Signs: Vital Signs - 24 hr 08/11/20 14:00 08/11/20 14:10 08/11/20 14:39 Temperature 36.3 C L Pulse Rate 106 H 74 74 Respiratory Rate 20 20 20 Blood Pressure 126/72 Pulse Oximetry 100 98 08/11/20 19:01 08/11/20 19:34 08/11/20 19:38 Temperature 35.8 C L Pulse Rate 77 69 69 Respiratory Rate 18 20 22 H Blood Pressure 130/79 Pulse Oximetry 100 99 99 08/11/20 19:45 08/11/20 19:49 08/11/20 20:48 Temperature 36.0 C L Pulse Rate 22 L 72 79 Respiratory Rate 74 H 18 Blood Pressure 116/66 Pulse Oximetry 97 100 08/11/20 21:21 08/11/20 22:55 08/12/20 01:11 Temperature Pulse Rate 79 72 69 Respiratory Rate 24 H 21 H Blood Pressure Pulse Oximetry 98 08/12/20 01:14 08/12/20 01:15 08/12/20 05:55 Temperature 36.8 C Pulse Rate 81 81 75 Respiratory Rate 21 H 20 18 Blood Pressure 116/50 L Pulse Oximetry 94 99 08/12/20 08:00 08/12/20 08:46 08/12/20 08:55 Temperature 36.3 C L Pulse Rate 72 72 73 Respiratory Rate 20 20 Blood Pressure 122/60 Pulse Oximetry 97 08/12/20 09:00 08/12/20 13:34 Temperature Pulse Rate 75 Respiratory Rate 20 Blood Pressure Pulse Oximetry 96 Intake/Output Intake/Output: Intake & Output 08/09/20 08/10/20 08/11/20 08/12/20 23:59 23:59 23:59 23:59 Intake Total 2850 1300 1680 1070 Output Total 1000 Balance 2850 5354 378 4823 Meds/Results Medications: Active Medications Generic Name Dose Route Start Last Admin Trade Name Freq PRN Reason Stop Dose Admin Hydrocodone Bitart/Acetaminophen 1 tab 08/12/20 09:36 08/12/20 10:37 [place] 5-325 Mg PO 1 tab Q12HR PRN Administration Pain Rated 4-6 Acetazolamide 250 mg 08/10/20 11:00 08/12/20 08:42 Diamox Tab PO 250 mg QAM DEWAYNE Administration Albuterol 2.5 mg 08/10/20 02:00 08/12/20 08:59 Albuterol Sulf Neb 2.5mg/0.5ml INHALATION 2.5 mg Q6HRT DEWAYNE Administration Alteplase, Recombinant 2 mg 08/08/20 11:39 08/08/20 11:54 Cathflo Activase IV PUSH 2 mg ONCE PRN Administration Line Occlusion Apixaban 5 mg 08/09/20 09:00 08/12/20 08:42 Eliquis PO 5 mg DAILY DEWAYNE Administration Atorvastatin Calcium 10 mg 08/09/20 09:00 08/12/20 08:43 Lipitor PO 10 mg DAILY DEWAYNE Administration Budesonide 0.5 mg 08/10/20 20:00 08/12/20 08:59 Pulmicort Respule Neb INHALATION 0.5 mg Q12HRT DEWAYNE Administration Diltiazem HCl 60 mg 08/09/20 06:00 08/12/20 13:00 Cardizem Tab PO 60 mg Q8HR DEWAYNE Administration Diltiazem HCl 30 mg 08/09/20 06:00 08/12/20 13:00 Cardizem Tab PO 30 mg Q8HR DEWAYNE Administration Docusate Sodium 100 mg 08/11/20 08:10 Colace Capsule PO 09/08/20 09:01 DAILY PRN CONSTIPATION Ferrous Sulfate 324 mg 08/09/20 09:00 08/12/20 08:42 Ferrous Sulfate PO 324 mg DAILY DEWAYNE Administration Furosemide 40 mg 08/10/20 17:00 08/12/20 08:43 Lasix Inj IV PUSH 40 mg BID DEWAYNE Administration Imipenem/Cilastatin Sodium 500 mg in 100 mls @ 300 mls/hr 08/11/20 18:00 08/12/20 12:59 Primaxin 500 Mg/D5w 100 Ml IVPB 08/14/20 17:59 300 mls/hr Q6HR DEWAYNE Administration Acetaminophen 1,000 mg in 100 mls @ 400 mls/hr 08/12/20 09:33 Ofirmev 1,000 Mg Ivpb IVPB 08/15/20 09:34 Q6H PRN Pain Rated 1-3 Ipratropium [place] 0.5 mg 08/08/20 14:00 08/12/20 08:59 Atrovent Neb INHALATION 0.5 mg Q6HRT DEWAYNE Administration Magnesium Oxide 400 mg 08/09/20 09:00 08/12/20 08:43 Mag-Ox PO 400 mg DAILY DEWAYNE Administration Metoclopramide HCl 10 mg 08/09/20 06:30 08/12/20
[2020-08-12] MEDS: GENTAMICIN SULFATE INJ 390 MG in DEXTROSE 5% 100 ML 95.5 MG IVPB (15:31)
[2020-08-13] VITALS (19 sets, daily range): BP systolic 123–130; BP diastolic 58–74; PULSE 60–84; RESP 18–22; TEMP 36.6–37.1; O2SAT 78–100
[2020-08-13] MEDS: ALBUTEROL SULFATE NEB 2.5 MG/0.5 ML INH INHALATION ×4 (01:45→19:51)
[2020-08-13] MEDS: IPRATROPIUM BR 0.02% INH SOLN 0.5 MG/2.5 ML VIAL INHALATION ×4 (01:45→19:51)
--- NOTE | 2020-08-13 06:11 | CONS_ITS ---
DATE OF CONSULTATION: 08/12/2020 REASON FOR CONSULTATION: UTI. HISTORY OF PRESENT ILLNESS: A 70-year-old female seen in the past. She has had recurrent Staph aureus bacteremia in January and again in June. She was treated with Ancef on both occasions. Her MRI, however, in June showed progression with diskitis and osteomyelitis in thoracic spine. She was transferred to [facility], but apparently no operations were required. She has been in a penitentiary since then. Her Ancef continued through the August 02, then change to cephalexin, which she was on at the time of admission. Currently after discharge from [facility], she had no Ortega catheter, but one was placed at her penitentiary, indications not available. At her request, it was removed about 5 days later. She presented to the hospital here via ambulance on August 08 with hypoxemia and lethargy. The patient had mild leukocytosis at the time and consultation now requested. She has had a straight cath for UA results as above. She denies any voiding symptoms. Currently does feel like she empties her bladder well. She has had no flank pain. Her back pain is improved, though not fully resolved. ALLERGIES: LEVOFLOXACIN CAUSED A RASH, ADHESIVE TAPE. PRESENT MEDICATIONS: No immunosuppressants. Extensive list reviewed from her penitentiary and currently the cephalexin is on hold. HABITS: Ex-smoker. No alcohol. PAST MEDICAL HISTORY: In addition to the above, chronic respiratory failure, stasis dermatitis, previous DVT, diastolic heart failure, hypertension, morbid obesity, YESENIA, PAF, appendectomy, hysterectomy, ventral hernia repair, no mesh to my knowledge. FAMILY HISTORY: Not pertinent to her present illness. SOCIAL HISTORY: She is retired at [employer]. No family at the bedside currently. REVIEW OF SYSTEMS: Shortness of breath, obesity, lower extremity weakness, edema. 14-point review otherwise negative. PICC remains in place. PHYSICAL EXAMINATION: GENERAL: This is a middle-aged female, who appears older than her actual age. No acute distress since arrival. VITAL SIGNS: Afebrile, 75, 20, 122/60, 96% on 2 L. SKIN: Warm and dry. No rashes. PICC in place without tenderness, cord erythema. NODES: No cervical adenopathy. EENT: The conjunctivae are normal. The oropharynx and oral mucosa appear normal. No petechiae. NECK: Without meningismus or thyromegaly. LUNGS: Clear to auscultation. BACK: No CVAT. CARDIAC: Regular rate and rhythm. She has no murmurs, no gallops. ABDOMEN: Morbidly obese, nontender. No masses. EXTREMITIES: 2+ pitting and nonpitting edema, both distal legs and into the feet. RADIOLOGY: Chest CT showed the same burst fractures with diskitis and osteomyelitis, OGD, small pleural effusions, appropriate PICC placement, gaseous distention. Chest x-ray, cardiomegaly, small pleural effusions. An echocardiogram repeated yesterday and no evidence of infection, but she does have valvular heart disease. LABORATORY DATA: Urine culture with Pseudomonas aeruginosa. I reviewed the susceptibilities and she has had the urinalysis, as I reviewed those results in full. White count was 11.9, now normal at 7.0, hemoglobin 7.4, which is stable and platelets are 225. Differential, mild monocytosis. Blood gases 7.36, 64, 143, 36, 99%, then it is on 2 L. She had mild hyponatremia, CO2 is elevated 38, glucose 139. BNP is elevated. Urinalysis noted. Lubin virus assay nonreactive. ASSESSMENT: 1. Pseudomonas urinary tract infection. No voiding symptoms, but she did have transient leukocytosis and recent catheter and I think treatment is warranted rather than describing this to asymptomatic colonization. 2. Recurrent OSS
[2020-08-13 06:13] LABS: Basophils Percent Auto 0.3 % (0.2-1.2); Eosinophils Absolute Auto 0.5 K/mm3 (0-0.3); Eosinophils Percent Auto 5.1 % (0-4.4); Hematocrit 27.7 % (37.0-47.0); Hemoglobin 8.1 g/dL (12.0-15.0); Immature Granulocyte Absolute 0.04 K/mm3 (0.00-0.031); Immature Granulocyte Percent A 0.5 % (0-0.5); Lymphocytes Percent Auto 12.4 % (18.3-44.2); Mean Corpuscular HGB Conc 29.2 g/dl (32-36); Mean Corpuscular Hemoglobin 29.6 pg (26-34); Mean Corpuscular Volume 101.1 fl (80-100); Monocytes Percent Auto 11.5 % (2.6-8.5); Neutrophils Absolute Auto 6.2 K/mm3 (1.3-6.7); Neutrophils Percent Auto 70.2 % (45.5-73.1); Platelet Count Result 272 k/mm3 (150-375); Red Blood Count 2.74 M/mm3 (4.2-5.4); Red Cell Distribution Width 16.4 % (11.5-14.5); White Blood Count 8.9 K/mm3 (4.5-10.0)
[2020-08-13] MEDS: METOCLOPRAMIDE HCL 10 MG TABLET PO ×3 (06:14→16:47)
[2020-08-13] MEDS: dilTIAZem HCL 30 MG TABLET PO ×3 (06:15→21:11)
[2020-08-13] MEDS: dilTIAZem HCL 60 MG TABLET PO ×3 (06:15→21:11)
[2020-08-13] MEDS: BUDESONIDE RESPULE NEB 0.5 MG/2 ML AMP INHALATION ×2 (08:17→19:51)
[2020-08-13] MEDS: APIXABAN 5 MG TABLET PO (08:38)
[2020-08-13] MEDS: FUROSEMIDE INJ 40 MG/4 ML VIAL IV PUSH ×2 (08:39→16:47)
[2020-08-13] MEDS: METOPROLOL TARTRATE 12.5 MG TABLET PO ×2 (08:39→21:10)
[2020-08-13] MEDS: FERROUS SULFATE 324 MG TABLET PO (08:39)
[2020-08-13] MEDS: SACCHAROMYCES BOULARDII 250 MG CAPSULE PO ×2 (08:40→16:48)
[2020-08-13] MEDS: MAGNESIUM OXIDE 400 MG TABLET PO (08:40)
[2020-08-13] MEDS: ATORVASTATIN 10 MG TABLET PO (08:41)
[2020-08-13] MEDS: POTASSIUM CHLORIDE 20 MEQ TABLET.ER PO (08:41)
[2020-08-13] MEDS: acetaZOLAMIDE TAB 250 MG TABLET PO (08:41)
[2020-08-13] MEDS: MULTIVITAMINS THERAPEUTIC TAB (*BKC) 1 TABLET PO (08:41)
[2020-08-13] MEDS: CHOLECALCIFEROL 1,000 UNITS TABLET 1000 UNITS PO (08:42)
[2020-08-13] MEDS: SPIRONOLACTONE 25 MG TABLET PO (08:42)
[2020-08-13] MEDS: TOLNAFTATE 1% POWDER 45 GM BTL 1 APPLIC TOPICAL ×2 (08:42→16:49)
[2020-08-13] MEDS: PREGABALIN (*CRX) 75 MG CAPSULE PO ×2 (08:45→21:11)
--- NOTE | 2020-08-13 13:57 | PM.IMPN ---
Progress Note: A&P Assessment and Plan (1) Acute and chronic respiratory failure with hypercapnia: Code(s): J96.22 - Acute and chronic respiratory failure with hypercapnia Status: Acute Assessment and Plan: secondary to sleep apnea and asthma (2) Acute on chronic respiratory failure with hypoxia and hypercapnia: Code(s): J96.21 - Acute and chronic respiratory failure with hypoxia; J96.22 - Acute and chronic respiratory failure with hypercapnia Status: Acute Assessment and Plan: On supplemental oxygen during the day (3) UTI (urinary tract infection): Qualifiers: Urinary tract infection type: site unspecified Code(s): N39.0 - Urinary tract infection, site not specified Status: Acute Assessment and Plan: On Gentamicin + Imipenem for Pseudomonas UTI (4) Discitis thoracic region: Onset Date: ~06/2020 Code(s): M46.44 - Discitis, unspecified, thoracic region Status: Acute Assessment and Plan: Continue Cefazolin half-way. (5) Obstructive sleep apnea: Code(s): G47.33 - Obstructive sleep apnea (adult) (pediatric) Status: Acute Assessment and Plan: Continuous CPAP at night time. (6) Paroxysmal atrial fibrillation: Code(s): I48.0 - Paroxysmal atrial fibrillation Status: Acute Assessment and Plan: Rate controlled. (7) Essential hypertension: Code(s): I10 - Essential (primary) hypertension Status: Acute Assessment and Plan: Well controlled. (8) AMS (altered mental status): Code(s): R41.82 - Altered mental status, unspecified Status: Acute Assessment and Plan: Resolved. (9) Ileus: Code(s): K56.7 - Ileus, unspecified Status: Acute Assessment and Plan: Try laxatives if no improvement pt will need NG tube inserted Subjective Date/time seen: 08/13/20 13:57 Interval history: Trae is a 70-year-old female with multiple medical problems including morbid obesity, chronic respiratory failure, obesity hypoventilation syndrome, obstructive sleep apnea, diastolic congestive heart failure, paroxysmal atrial fibrillation, and several other comorbidities who presented to the emergency department earlier today via EMS from a local intermediate facility for evaluation of lethargy and hypoxia. Pt feels less SOB but complains of abdominal distension today. Review of Systems Review of Systems: All systems reviewed & are unremarkable except as noted in HPI and below Constitutional: Constitutional: Reports weakness Cardiovascular: Cardiovascular: Denies no additional cardiovascular complaints Respiratory: Respiratory: Denies no additional respiratory complaints Gastrointestinal: Gastrointestinal: Reports bloating and Reports constipation Psychiatric: Psychiatric: Denies no additional psychiatric complaints Exam Const: General: cooperative, comfortable, no acute distress, alert, awake, lethargic and other (Morbid obesity, NAD.) Nutritional Appearance: obese Orientation/consciousness: patient oriented x3 and lethargic Limitations: physical limitations Other: Chronically ill looking. Neck: Neck: full ROM, no lymphadenopathy and no JVD Lymphatic: no lymphadenopathy noted Resp: Effort & Inspection: normal respiratory effort Auscultation: clear to auscultation bilaterally and diminished lung sounds Other: Diminished throughout. Cardio: Jugular venous distension: no JVD Rate: regular rate Rhythm: regular rhythm Heart sounds: S1 normal heart sound present and S2 normal heart sound present Other: no murmurs, rubs or gallops. GI: Inspection: obesity Other: Abdominal distension, AND decreased BS Skin: General skin exam: normal color Lesions: no lesions Rashes: no rashes Wounds: no wounds Other: Chronic skin changes on B/L LE Neuro: General: patient oriented x3 Cranial nerves: Yes CN's II-XII intact bilaterally and Yes Equal, round and catrachita
--- NOTE | 2020-08-13 14:21 | WPDINFPN2 ---
Progress Note: A&P Assessment and Plan (1) UTI (urinary tract infection): Qualifiers: Urinary tract infection type: site unspecified Code(s): N39.0 - Urinary tract infection, site not specified Status: Acute Assessment and Plan: 1. Uti 2. Recent MERCEDES T spine discitis and OM REC Imipenem and gent # 2 / 3 days. Resume cephalexin after IV therapy completed Subjective Date/time seen: 08/13/20 14:21 Interval history: 1 large volume soft but not watery BM Exam Narrative: Exam Narrative: afebrile Const: General: no acute distress Resp: Effort & Inspection: normal respiratory effort Auscultation: clear to auscultation bilaterally Cardio: Rate: regular rate Rhythm: regular rhythm Heart sounds: no murmurs GI: Inspection: distended GI Palp: Yes Soft to palpation and No Tenderness to palpation present (GI) Objective Data Vital Signs Vital Signs: Vital Signs - 24 hr 08/12/20 14:34 08/12/20 14:45 08/12/20 20:09 Temperature Pulse Rate 74 78 64 Respiratory Rate 20 20 20 Blood Pressure Pulse Oximetry 92 08/12/20 20:26 08/12/20 20:30 08/12/20 21:10 Temperature 36.2 C L Pulse Rate 100 68 84 Respiratory Rate 18 20 Blood Pressure 110/76 Pulse Oximetry 100 08/12/20 21:45 08/13/20 01:46 08/13/20 01:49 Temperature Pulse Rate 74 60 60 Respiratory Rate 18 18 20 Blood Pressure Pulse Oximetry 98 95 08/13/20 06:00 08/13/20 08:19 08/13/20 08:20 Temperature 37.1 C Pulse Rate 68 61 Respiratory Rate 18 18 Blood Pressure 124/58 L Pulse Oximetry 93 95 08/13/20 08:31 08/13/20 08:39 08/13/20 08:46 Temperature Pulse Rate 68 68 68 Respiratory Rate 18 18 Blood Pressure Pulse Oximetry 91 08/13/20 09:20 08/13/20 09:23 Temperature Pulse Rate Respiratory Rate Blood Pressure Pulse Oximetry 78 L 90 Intake/Output Intake/Output: Intake & Output 08/10/20 08/11/20 08/12/20 08/13/20 23:59 23:59 23:59 23:59 Intake Total 1300 1680 195.75 2060 Output Total 1000 Balance 1844 059 5265.75 2059 Meds/Results Medications: Active Medications Generic Name Dose Route Start Last Admin Trade Name Freq PRN Reason Stop Dose Admin Hydrocodone Bitart/Acetaminophen 1 tab 08/12/20 09:36 08/12/20 10:37 [place] 5-325 Mg PO 1 tab Q12HR PRN Administration Pain Rated 4-6 Acetazolamide 250 mg 08/10/20 11:00 08/13/20 08:41 Diamox Tab PO 250 mg QAM DEWAYNE Administration Albuterol 2.5 mg 08/10/20 02:00 08/13/20 08:17 Albuterol Sulf Neb 2.5mg/0.5ml INHALATION 2.5 mg Q6HRT DEWAYNE Administration Alteplase, Recombinant 2 mg 08/08/20 11:39 08/08/20 11:54 Cathflo Activase IV PUSH 2 mg ONCE PRN Administration Line Occlusion Apixaban 5 mg 08/09/20 09:00 08/13/20 08:38 Eliquis PO 5 mg DAILY DEWAYNE Administration Atorvastatin Calcium 10 mg 08/09/20 09:00 08/13/20 08:41 Lipitor PO 10 mg DAILY DEWAYNE Administration Budesonide 0.5 mg 08/10/20 20:00 08/13/20 08:17 Pulmicort Respule Neb INHALATION 0.5 mg Q12HRT DEWAYNE Administration Diltiazem HCl 60 mg 08/09/20 06:00 08/13/20 13:29 Cardizem Tab PO 60 mg Q8HR DEWAYNE Administration Diltiazem HCl 30 mg 08/09/20 06:00 08/13/20 13:30 Cardizem Tab PO 30 mg Q8HR DEWAYNE Administration Docusate Sodium 100 mg 08/13/20 14:10 Colace Capsule PO Q12H PRN Constipation Ferrous Sulfate 324 mg 08/09/20 09:00 08/13/20 08:39 Ferrous Sulfate PO 324 mg DAILY DEWAYNE Administration Furosemide 40 mg 08/10/20 17:00 08/13/20 08:39 Lasix Inj IV PUSH 40 mg BID DEWAYNE Administration Imipenem/Cilastatin Sodium 500 mg in 100 mls @ 300 mls/hr 08/11/20 18:00 08/13/20 11:40 Primaxin 500 Mg/D5w 100 Ml IVPB 08/14/20 17:59 Infused Q6HR DEWAYNE Infusion Acetaminophen 1,000 mg in 100 mls @ 400 mls/hr 08/12/20 09:33 08/13/20 03:39 Ofirmev 1,000 Mg Ivpb IVPB 08/15/20 09:34 Infused Q6H PRN Infus
[2020-08-13] MEDS: BISACODYL 10 MG SUPPOSITORY RECTAL (14:50)
[2020-08-13] MEDS: GENTAMICIN SULFATE INJ 390 MG in DEXTROSE 5% 100 ML 95.5 MG IVPB (14:50)
[2020-08-13] MEDS: POTASSIUM CHLORIDE 20 MEQ PACKET (FOR LIQUID) PO (16:48)
[2020-08-13] MEDS: HYDROcodone/acetaminophen (*CRX) 5-325 MG TABLET 1 TAB PO (21:11)
[2020-08-14] VITALS (18 sets, daily range): BP systolic 102–124; BP diastolic 55–65; PULSE 56–82; RESP 16–20; TEMP 36.6–36.8; O2SAT 92–100
[2020-08-14] MEDS: ALBUTEROL SULFATE NEB 2.5 MG/0.5 ML INH INHALATION ×4 (01:23→19:11)
[2020-08-14] MEDS: IPRATROPIUM BR 0.02% INH SOLN 0.5 MG/2.5 ML VIAL INHALATION ×4 (01:23→19:11)
[2020-08-14 05:00] LABS: Basophils Percent Auto 0.5 % (0.2-1.2); Eosinophils Absolute Auto 0.4 K/mm3 (0-0.3); Eosinophils Percent Auto 6.6 % (0-4.4); Hematocrit 25.2 % (37.0-47.0); Hemoglobin 7.5 g/dL (12.0-15.0); Immature Granulocyte Absolute 0.02 K/mm3 (0.00-0.031); Immature Granulocyte Percent A 0.3 % (0-0.5); Lymphocytes Absolute Auto 1.19 K/mm3 (0.9-3.2); Lymphocytes Percent Auto 18.2 % (18.3-44.2); Mean Corpuscular HGB Conc 29.8 g/dl (32-36); Mean Corpuscular Hemoglobin 30.1 pg (26-34); Mean Corpuscular Volume 101.2 fl (80-100); Mean Platelet Volume 9.4 fl (7.4-10.4); Monocytes Absolute Auto 0.8 K/mm3 (0.1-0.6); Monocytes Percent Auto 12.5 % (2.6-8.5); Neutrophils Absolute Auto 4.1 K/mm3 (1.3-6.7); Neutrophils Percent Auto 61.9 % (45.5-73.1); Platelet Count Result 249 k/mm3 (150-375); Red Blood Count 2.49 M/mm3 (4.2-5.4); Red Cell Distribution Width 16.4 % (11.5-14.5); White Blood Count 6.5 K/mm3 (4.5-10.0)
[2020-08-14 05:28] LABS: Platelet Estimate Adequate (Adequate)
[2020-08-14 05:29] LABS: Anisocytosis 1+ (NORMAL); Stomatocytes 1+ (NORMAL)
[2020-08-14] MEDS: dilTIAZem HCL 60 MG TABLET PO ×3 (05:57→20:29)
[2020-08-14] MEDS: METOCLOPRAMIDE HCL 10 MG TABLET PO ×3 (05:57→16:32)
[2020-08-14] MEDS: dilTIAZem HCL 30 MG TABLET PO ×3 (05:57→20:30)
[2020-08-14] MEDS: BUDESONIDE RESPULE NEB 0.5 MG/2 ML AMP INHALATION ×2 (08:11→19:11)
[2020-08-14] MEDS: FERROUS SULFATE 324 MG TABLET PO (08:52)
[2020-08-14] MEDS: SACCHAROMYCES BOULARDII 250 MG CAPSULE PO ×2 (08:52→16:33)
[2020-08-14] MEDS: FUROSEMIDE INJ 40 MG/4 ML VIAL IV PUSH (08:52)
[2020-08-14] MEDS: ATORVASTATIN 10 MG TABLET PO (08:52)
[2020-08-14] MEDS: CHOLECALCIFEROL 1,000 UNITS TABLET 1000 UNITS PO (08:52)
[2020-08-14] MEDS: SPIRONOLACTONE 25 MG TABLET PO (08:52)
[2020-08-14] MEDS: MAGNESIUM OXIDE 400 MG TABLET PO (08:52)
[2020-08-14] MEDS: APIXABAN 5 MG TABLET PO (08:52)
[2020-08-14] MEDS: POTASSIUM CHLORIDE 20 MEQ PACKET (FOR LIQUID) PO ×2 (08:52→16:33)
[2020-08-14] MEDS: MULTIVITAMINS THERAPEUTIC TAB (*BKC) 1 TABLET PO (08:52)
[2020-08-14] MEDS: acetaZOLAMIDE TAB 250 MG TABLET PO (08:52)
[2020-08-14] MEDS: PREGABALIN (*CRX) 75 MG CAPSULE PO ×2 (08:52→20:29)
[2020-08-14] MEDS: HYDROcodone/acetaminophen (*CRX) 5-325 MG TABLET 1 TAB PO ×2 (08:53→22:24)
[2020-08-14] MEDS: TOLNAFTATE 1% POWDER 45 GM BTL 1 APPLIC TOPICAL ×2 (08:54→16:34)
[2020-08-14] MEDS: LACTULOSE 20 GM/30 ML UDC PO (08:54)
[2020-08-14] MEDS: METOPROLOL TARTRATE 12.5 MG TABLET PO ×2 (08:55→20:29)
--- NOTE | 2020-08-14 13:33 | PM.IMPN ---
Progress Note: A&P Assessment and Plan (1) Acute and chronic respiratory failure with hypercapnia: Code(s): J96.22 - Acute and chronic respiratory failure with hypercapnia Status: Acute Assessment and Plan: secondary to sleep apnea and asthma, recent cxr shows pneumonia (2) Acute on chronic respiratory failure with hypoxia and hypercapnia: Code(s): J96.21 - Acute and chronic respiratory failure with hypoxia; J96.22 - Acute and chronic respiratory failure with hypercapnia Status: Acute Assessment and Plan: On supplemental oxygen during the day (3) UTI (urinary tract infection): Qualifiers: Urinary tract infection type: site unspecified Code(s): N39.0 - Urinary tract infection, site not specified Status: Acute Assessment and Plan: On Gentamicin + Imipenem for Pseudomonas UTI (4) Discitis thoracic region: Onset Date: ~06/2020 Code(s): M46.44 - Discitis, unspecified, thoracic region Status: Acute Assessment and Plan: Continue Cephalexin terminal gauger. (5) Obstructive sleep apnea: Code(s): G47.33 - Obstructive sleep apnea (adult) (pediatric) Status: Acute Assessment and Plan: Continuous CPAP at night time. (6) Paroxysmal atrial fibrillation: Code(s): I48.0 - Paroxysmal atrial fibrillation Status: Acute Assessment and Plan: Rate controlled. (7) Essential hypertension: Code(s): I10 - Essential (primary) hypertension Status: Acute Assessment and Plan: Well controlled. (8) AMS (altered mental status): Code(s): R41.82 - Altered mental status, unspecified Status: Acute Assessment and Plan: Resolved. (9) Ileus: Code(s): K56.7 - Ileus, unspecified Status: Acute Assessment and Plan: Bowel still distension, consider inserting NG. pt adviced to walk pt not able to walk for years, due to weakness in her legs? uses [employer] life and wheelchair Subjective Date/time seen: 08/14/20 13:33 Interval history: Trae is a 70-year-old female with multiple medical problems including morbid obesity, chronic respiratory failure, obesity hypoventilation syndrome, obstructive sleep apnea, diastolic congestive heart failure, paroxysmal atrial fibrillation, and several other comorbidities who presented to the emergency department earlier today via EMS [facility] a local [facility] for evaluation of lethargy and hypoxia. Pt feels less SOB but still complains of abdominal distension today. Pt has had bowel movement several yesterday, but remains with poor mobility, chronically immobile uses pramod lift and wheelcair. Pt seen by ID for recent MERCEDES T spine discitis and OM with UTI now. Review of Systems Review of Systems: All systems reviewed & are unremarkable except as noted in HPI and below Respiratory: Respiratory: Denies no additional respiratory complaints and Denies chest congestion Gastrointestinal: Comments: Abdominal distension Exam Narrative: Exam Narrative: Morbidly obese in bed, immobile. Const: General: cooperative, comfortable, no acute distress, alert, awake, lethargic and other (Morbid obesity, NAD.) Nutritional Appearance: obese Orientation/consciousness: patient oriented x3 and lethargic Limitations: physical limitations Other: Chronically ill looking. HENMT: Head: normal to inspection and normocephalic Neck: Neck: full ROM, no lymphadenopathy and no JVD Lymphatic: no lymphadenopathy noted Resp: Effort & Inspection: normal respiratory effort Auscultation: clear to auscultation bilaterally Cardio: Jugular venous distension: no JVD Rate: regular rate Rhythm: regular rhythm Heart sounds: S1 normal heart sound present and S2 normal heart sound present Other: no murmurs, rubs or gallops. GI: Inspection: Pannus present and obesity Auscultation: normal bowel sounds Other: Abdominal distension, AND decreased BS Skin: General skin e
--- NOTE | 2020-08-14 13:34 | WPDINFPN2 ---
Progress Note: A&P Assessment and Plan (1) UTI (urinary tract infection): Qualifiers: Urinary tract infection type: site unspecified Code(s): N39.0 - Urinary tract infection, site not specified Status: Acute Assessment and Plan: 1. Uti, doing well. Catheter associated (while at [place]) 2. Recent MERCEDES T spine discitis and OM, clinically resolved but needs prolonged oral therapy for potential residual infection REC Imipenem and gent # 3 / 3 days. Resume cephalexin tomorrow, 5 months therapy tentatively, ok discharge. Subjective Date/time seen: 08/14/20 13:34 Interval history: no voiding symptoms Exam Narrative: Exam Narrative: afebrile Const: General: no acute distress Resp: Effort & Inspection: normal respiratory effort Auscultation: clear to auscultation bilaterally Cardio: Rate: regular rate Rhythm: regular rhythm Heart sounds: no murmurs GI: Inspection: non-distended GI Palp: Yes Soft to palpation and No Tenderness to palpation present (GI) Objective Data Vital Signs Vital Signs: Vital Signs - 24 hr 08/13/20 14:28 08/13/20 14:31 08/13/20 14:33 Temperature 36.8 C Pulse Rate 70 72 84 Respiratory Rate 22 H 18 20 Blood Pressure 130/74 Pulse Oximetry 95 08/13/20 19:52 08/13/20 19:55 08/13/20 20:16 Temperature Pulse Rate 72 75 Respiratory Rate 18 18 Blood Pressure Pulse Oximetry 96 08/13/20 21:05 08/13/20 21:10 08/13/20 22:30 Temperature 36.6 C Pulse Rate 82 62 70 Respiratory Rate 18 22 H Blood Pressure 123/58 L Pulse Oximetry 100 95 08/14/20 01:24 08/14/20 01:34 08/14/20 05:34 Temperature Pulse Rate 67 70 71 Respiratory Rate 18 18 19 Blood Pressure Pulse Oximetry 95 96 08/14/20 06:21 08/14/20 08:08 08/14/20 08:12 Temperature 36.6 C Pulse Rate 82 68 Respiratory Rate 16 18 Blood Pressure 124/55 L Pulse Oximetry 98 96 08/14/20 08:26 08/14/20 08:55 Temperature Pulse Rate 65 75 Respiratory Rate 18 Blood Pressure Pulse Oximetry Intake/Output Intake/Output: Intake & Output 09/20/08/12/20 08/13/20 08/14/20 23:59 23:59 23:59 23:59 Intake Total 1680 1958.75 3200 840 Output Total 1000 Balance 680 3200 840 Meds/Results Medications: Active Medications Generic Name Dose Route Start Last Admin Trade Name Freq PRN Reason Stop Dose Admin Hydrocodone Bitart/Acetaminophen 1 tab 08/12/20 09:36 08/14/20 08:53 [place] 5-325 Mg PO 1 tab Q12HR PRN Administration Pain Rated 4-6 Acetazolamide 250 mg 08/10/20 11:00 08/14/20 08:52 Diamox Tab PO 250 mg QAM DEWAYNE Administration Albuterol 2.5 mg 08/10/20 02:00 08/14/20 08:11 Albuterol Sulf Neb 2.5mg/0.5ml INHALATION 2.5 mg Q6HRT DEWAYNE Administration Alteplase, Recombinant 2 mg 08/08/20 11:39 08/08/20 11:54 Cathflo Activase IV PUSH 2 mg ONCE PRN Administration Line Occlusion Apixaban 5 mg 08/09/20 09:00 08/14/20 08:52 Eliquis PO 5 mg DAILY DEWAYNE Administration Atorvastatin Calcium 10 mg 08/09/20 09:00 08/14/20 08:52 Lipitor PO 10 mg DAILY DEWAYNE Administration Budesonide 0.5 mg 08/10/20 20:00 08/14/20 08:11 Pulmicort Respule Neb INHALATION 0.5 mg Q12HRT DEWAYNE Administration Diltiazem HCl 60 mg 08/09/20 06:00 08/14/20 13:00 Cardizem Tab PO 60 mg Q8HR DEWAYNE Administration Diltiazem HCl 30 mg 08/09/20 06:00 08/14/20 13:00 Cardizem Tab PO 30 mg Q8HR DEWAYNE Administration Docusate Sodium 100 mg 08/13/20 14:10 Colace Capsule PO Q12H PRN Constipation Ferrous Sulfate 324 mg 08/09/20 09:00 08/14/20 08:52 Ferrous Sulfate PO 324 mg DAILY DEWAYNE Administration Furosemide 40 mg 08/10/20 17:00 08/14/20 08:52 Lasix Inj IV PUSH 40 mg BID DEWAYNE Administration Imipenem/Cilastatin Sodium 500 mg in 100 mls @ 300 mls/hr 08/11/20 18:00 08/14/20 12:59 Primaxin 500 Mg/D5w 100 Ml IVPB 08/14/20 17:59 300 mls/hr Q6HR DEWAYNE
[2020-08-14] MEDS: GENTAMICIN SULFATE INJ 390 MG in DEXTROSE 5% 100 ML 95.5 MG IVPB (16:32)
[2020-08-15] VITALS (17 sets, daily range): BP systolic 110–138; BP diastolic 56–75; PULSE 59–74; RESP 17–20; TEMP 36.1–36.2; O2SAT 94–100; BMI 46.5
[2020-08-15] MEDS: IPRATROPIUM BR 0.02% INH SOLN 0.5 MG/2.5 ML VIAL INHALATION ×4 (01:25→21:21)
[2020-08-15] MEDS: ALBUTEROL SULFATE NEB 2.5 MG/0.5 ML INH INHALATION ×4 (01:25→21:21)
[2020-08-15] MEDS: dilTIAZem HCL 30 MG TABLET PO ×3 (05:10→21:53)
[2020-08-15] MEDS: dilTIAZem HCL 60 MG TABLET PO ×3 (05:10→21:53)
[2020-08-15] MEDS: METOCLOPRAMIDE HCL 10 MG TABLET PO ×3 (05:10→18:11)
[2020-08-15 05:11] LABS: Basophils Percent Auto 0.5 % (0.2-1.2); Eosinophils Absolute Auto 0.5 K/mm3 (0-0.3); Eosinophils Percent Auto 6.3 % (0-4.4); Hematocrit 27.2 % (37.0-47.0); Hemoglobin 8.1 g/dL (12.0-15.0); Immature Granulocyte Absolute 0.04 K/mm3 (0.00-0.031); Immature Granulocyte Percent A 0.5 % (0-0.5); Lymphocytes Absolute Auto 1.45 K/mm3 (0.9-3.2); Lymphocytes Percent Auto 16.9 % (18.3-44.2); Mean Corpuscular HGB Conc 29.8 g/dl (32-36); Mean Corpuscular Hemoglobin 29.7 pg (26-34); Mean Corpuscular Volume 99.6 fl (80-100); Mean Platelet Volume 9.5 fl (7.4-10.4); Monocytes Absolute Auto 1.1 K/mm3 (0.1-0.6); Monocytes Percent Auto 12.8 % (2.6-8.5); Neutrophils Absolute Auto 5.4 K/mm3 (1.3-6.7); Platelet Count Result 307 k/mm3 (150-375); Red Blood Count 2.73 M/mm3 (4.2-5.4); Red Cell Distribution Width 16.5 % (11.5-14.5); White Blood Count 8.6 K/mm3 (4.5-10.0)
[2020-08-15 05:59] LABS: Anion Gap 5 mmol/L (8-16); Blood Urea Nitrogen 11 mg/dL (7-17); Calcium 9.7 mg/dL (8.4-10.2); Carbon Dioxide 38 mmol/L (22-30); Chloride 92 mmol/L (98-107); Estimated CRCL calculation 80 ml/min; Estimated Glomerular Filt Rate > 60; Glucose 103 mg/dL (65-105); Potassium 2.8 mmol/L (3.4-5.0); Sodium 135 mmol/L (137-145)
[2020-08-15] MEDS: BUDESONIDE RESPULE NEB 0.5 MG/2 ML AMP INHALATION ×2 (07:44→21:21)
[2020-08-15] MEDS: ATORVASTATIN 10 MG TABLET PO (08:30)
[2020-08-15] MEDS: METOPROLOL TARTRATE 12.5 MG TABLET PO ×2 (08:31→21:53)
[2020-08-15] MEDS: HYDROcodone/acetaminophen (*CRX) 5-325 MG TABLET 1 TAB PO (08:32)
[2020-08-15] MEDS: SPIRONOLACTONE 25 MG TABLET PO (08:33)
[2020-08-15] MEDS: APIXABAN 5 MG TABLET PO (08:34)
[2020-08-15] MEDS: SACCHAROMYCES BOULARDII 250 MG CAPSULE PO ×2 (08:34→18:11)
[2020-08-15] MEDS: PREGABALIN (*CRX) 75 MG CAPSULE PO ×2 (08:34→21:54)
[2020-08-15] MEDS: MULTIVITAMINS THERAPEUTIC TAB (*BKC) 1 TABLET PO (08:34)
[2020-08-15] MEDS: CHOLECALCIFEROL 1,000 UNITS TABLET 1000 UNITS PO (08:35)
[2020-08-15] MEDS: acetaZOLAMIDE TAB 250 MG TABLET PO (08:35)
[2020-08-15] MEDS: CEPHALEXIN 500 MG CAPSULE 1000 MG PO ×2 (08:35→21:53)
[2020-08-15] MEDS: FERROUS SULFATE 324 MG TABLET PO (08:36)
[2020-08-15] MEDS: POTASSIUM CHLORIDE 20 MEQ PACKET (FOR LIQUID) PO ×2 (08:36→18:11)
[2020-08-15] MEDS: MAGNESIUM OXIDE 400 MG TABLET PO (08:36)
[2020-08-15] MEDS: TOLNAFTATE 1% POWDER 45 GM BTL 1 APPLIC TOPICAL ×2 (08:37→18:11)
[2020-08-15] MEDS: LACTULOSE 20 GM/30 ML UDC PO (08:37)
--- NOTE | 2020-08-15 12:16 | PM.IMPN ---
Progress Note: A&P Assessment and Plan (1) Acute and chronic respiratory failure with hypercapnia: Code(s): J96.22 - Acute and chronic respiratory failure with hypercapnia Status: Acute Assessment and Plan: secondary to sleep apnea and asthma, recent cxr shows pneumonia. Pt is needing BIPAP. (2) Acute on chronic respiratory failure with hypoxia and hypercapnia: Code(s): J96.21 - Acute and chronic respiratory failure with hypoxia; J96.22 - Acute and chronic respiratory failure with hypercapnia Status: Acute Assessment and Plan: On supplemental oxygen during the day and BIPAP prn. (3) UTI (urinary tract infection): Qualifiers: Urinary tract infection type: site unspecified Code(s): N39.0 - Urinary tract infection, site not specified Status: Acute Assessment and Plan: On Gentamicin + Imipenem now cephalexin for Pseudomonas UTI (4) Discitis thoracic region: Onset Date: ~06/2020 Code(s): M46.44 - Discitis, unspecified, thoracic region Status: Acute Assessment and Plan: Continue Cephalexin intermediate designer. (5) Obstructive sleep apnea: Code(s): G47.33 - Obstructive sleep apnea (adult) (pediatric) Status: Acute Assessment and Plan: Continuous CPAP at night time. (6) Paroxysmal atrial fibrillation: Code(s): I48.0 - Paroxysmal atrial fibrillation Status: Acute Assessment and Plan: Rate controlled. (7) Essential hypertension: Code(s): I10 - Essential (primary) hypertension Status: Acute Assessment and Plan: Well controlled. (8) AMS (altered mental status): Code(s): R41.82 - Altered mental status, unspecified Status: Acute Assessment and Plan: Resolved. (9) Ileus: Code(s): K56.7 - Ileus, unspecified Status: Acute Assessment and Plan: Pt has Ng tube in situ. pt advised to walk pt not able to walk for years, due to weakness in her legs? uses pramod lift and wheelchair Subjective Date/time seen: 08/15/20 12:16 Interval history: Trae is a 70-year-old female with multiple medical problems including morbid obesity, chronic respiratory failure, obesity hypoventilation syndrome, obstructive sleep apnea, diastolic congestive heart failure, paroxysmal atrial fibrillation, and several other comorbidities who presented to the emergency department earlier today via EMS from a local alf facility for evaluation of lethargy and hypoxia. SOB is ongoing, pt is on BIPAP. Pt is feeling better from abdominal distension, with NG tube insitu, brownish food content coming back. Chronically immobile uses pramod lift and wheelchair. Pt seen by ID for recent MERCEDES T spine discitis and OM with UTI now. Review of Systems Review of Systems: All systems reviewed & are unremarkable except as noted in HPI and below Exam Narrative: Exam Narrative: Morbidly obese in bed, immobile. Ng tube in situ Const: General: cooperative, comfortable, no acute distress, alert, awake, lethargic and other (Morbid obesity, NAD.) Nutritional Appearance: obese Orientation/consciousness: patient oriented x3 and lethargic Limitations: physical limitations Other: Chronically ill looking. HENMT: Head: normal to inspection and normocephalic Ears: hearing grossly normal bilaterally General nose exam: Normal external nose present Face and sinus: normal facial exam Mouth: Yes Normal oral and palatal mucosa present Eyes: General: appearance normal, both eyes and all related structures Pupils: Equal, round and reactive pupils present EOM: EOMs intact bilaterally Neck: Neck: full ROM, no lymphadenopathy and no JVD Lymphatic: no lymphadenopathy noted Resp: Effort & Inspection: normal respiratory effort Auscultation: clear to auscultation bilaterally Other: decreased BS Cardio: Jugular venous distension: no JVD Rate: regular rate Rhythm: regular rhythm Heart sounds: S1 normal hea
[2020-08-15 13:15] LABS: Potassium 3.9 mmol/L (3.4-5.0)
[2020-08-15 13:22] LABS: Base Excess ABG 9.7 mEq/l (+/-2.0); Fractional Inspired Oxygen 24 %; HCO3 ABG 39.1 mEq/l (22.0-26.0); Oxygen Content ABG 13.8 %vol (16.0-22.0); Oxygen Saturation ABG 94.2 % (95.0-100.0); Oxyhemoglobin 93.4 % THb (90.0-100.0); PO2 ABG 83.6 mmHg (80.0-100.0); PO2 FiO2 Ratio Arterial Blood 3.48 %; Total Hemoglobin 10.4 g/dL (12.0-18.0)
[2020-08-15 13:24] LABS: PCO2 ABG 86.7 mmHg (35.0-45.0); pH ABG 7.272 (7.350-7.450)
[2020-08-15 13:26] LABS: Device NASAL CANNULA; Modified Allen's Test Pass; Site Drawn LEFT RADIAL
--- NOTE | 2020-08-15 13:34 | WPDINFPN2 ---
Progress Note: A&P Assessment and Plan (1) UTI (urinary tract infection): Qualifiers: Urinary tract infection type: site unspecified Code(s): N39.0 - Urinary tract infection, site not specified Status: Acute Assessment and Plan: 1. Uti, resolved. Catheter associated (while at [place]). Repeat Urine culture showed polymicrobial growth; this was a cath specimen, ruling out vaginal colonizers. Overall, I interpret the 2nd urine culture/UA as indicating partially treated Pseudomonas cystitis. 2. Recent MERCEDES T spine discitis and OM, clinically resolved but needs prolonged oral therapy for potential residual infection REC Off Imipenem and gent. She is taking her oral meds despite the NG, so can continue cephalexin x 5 months therapy tentatively, ok discharge. Will sign off, she can see me in office if Dr. Metzger requests Subjective Date/time seen: 08/15/20 13:34 Objective Data Vital Signs Vital Signs: Vital Signs - 24 hr 08/14/20 14:00 08/14/20 14:15 08/14/20 14:20 Temperature 36.8 C Pulse Rate 70 68 64 Respiratory Rate 20 20 18 Blood Pressure 102/60 Pulse Oximetry 100 100 08/14/20 14:51 08/14/20 19:12 08/14/20 19:14 Temperature Pulse Rate 64 62 62 Respiratory Rate 18 18 18 Blood Pressure Pulse Oximetry 92 08/14/20 19:37 08/14/20 19:45 08/14/20 20:29 Temperature 36.8 C Pulse Rate 60 70 59 L Respiratory Rate 18 18 Blood Pressure 115/65 Pulse Oximetry 100 08/14/20 22:50 08/15/20 01:25 08/15/20 01:27 Temperature Pulse Rate 56 L 62 62 Respiratory Rate 18 18 18 Blood Pressure Pulse Oximetry 96 97 08/15/20 01:31 08/15/20 05:01 08/15/20 07:45 Temperature 36.2 C L Pulse Rate 62 59 L Respiratory Rate 18 18 Blood Pressure 138/75 Pulse Oximetry 97 95 08/15/20 07:46 08/15/20 07:59 08/15/20 08:31 Temperature Pulse Rate 68 62 69 Respiratory Rate 18 18 Blood Pressure Pulse Oximetry Intake/Output Intake/Output: Intake & Output 08/12/20 08/13/20 08/14/20 08/15/20 23:59 23:59 23:59 23:59 Intake Total 1958.75 3309.75 1689.75 Balance 1958.3308.75 168.75 Meds/Results Medications: Active Medications Generic Name Dose Route Start Last Admin Trade Name Freq PRN Reason Stop Dose Admin Hydrocodone Bitart/Acetaminophen 1 tab 08/12/20 09:36 08/15/20 08:32 [place] 5-325 Mg PO 1 tab Q12HR PRN Administration Pain Rated 4-6 Acetazolamide 250 mg 08/10/20 11:00 08/15/20 08:35 Diamox Tab PO 250 mg QAM DEWAYNE Administration Albuterol 2.5 mg 08/10/20 02:00 08/15/20 07:44 Albuterol Sulf Neb 2.5mg/0.5ml INHALATION 2.5 mg Q6HRT DEWAYNE Administration Alteplase, Recombinant 2 mg 08/08/20 11:39 08/08/20 11:54 Cathflo Activase IV PUSH 2 mg ONCE PRN Administration Line Occlusion Apixaban 5 mg 08/09/20 09:00 08/15/20 08:34 Eliquis PO 5 mg DAILY DEWAYNE Administration Atorvastatin Calcium 10 mg 08/09/20 09:00 08/15/20 08:30 Lipitor PO 10 mg DAILY DEWAYNE Administration Budesonide 0.5 mg 08/10/20 20:00 08/15/20 07:44 Pulmicort Respule Neb INHALATION 0.5 mg Q12HRT DEWAYNE Administration Cephalexin HCl 1,000 mg 08/15/20 09:00 08/15/20 08:35 Keflex Capsule PO 01/12/21 09:01 1,000 mg Q12HR DEWAYNE Administration Diltiazem HCl 60 mg 08/09/20 06:00 08/15/20 05:10 Cardizem Tab PO 60 mg Q8HR DEWAYNE Administration Diltiazem HCl 30 mg 08/09/20 06:00 08/15/20 05:10 Cardizem Tab PO 30 mg Q8HR DEWAYNE Administration Docusate Sodium 100 mg 08/13/20 14:10 Colace Capsule PO Q12H PRN Constipation Ferrous Sulfate 324 mg 08/09/20 09:00 08/15/20 08:36 Ferrous Sulfate PO 324 mg DAILY DEWAYNE Administration Ipratropium [place] 0.5 mg 08/08/20 14:00 08/15/20 07:44 Atrovent Neb INHALATION 0.5 mg Q6HRT DEWAYNE Administration Lactulose 20 gm 08/14/20 09:00 08/15/20 08:37 Lactulose PO 20 gm QAM DEWAYNE Administrati
--- NOTE | 2020-08-15 13:35 | PC.NURSE ---
On 08/15/20, the student, [ Loraine Figueredo], provided care and completed [facility] documentation on this patient. I have reviewed the student's documentation and agree with the findings.
--- NOTE | 2020-08-15 21:50 | PM.PNPUL ---
Progress Note: A&P Assessment and Plan (1) Acute and chronic respiratory failure with hypercapnia: Code(s): J96.22 - Acute and chronic respiratory failure with hypercapnia Status: Acute Assessment and Plan: Due to severe obesity, severe YESENIA - BIPAP changed now with IPAP 22/EPAP 5, backup rate of 16, FiO2 25%. ABG in am. TV are around 450 -500. - continue BIPAP QHS and while napping. - Dr Gutierres iscontinued her hydrocodone and gabapentin, ordered Lyrica instead as this is less sedating and less to affect respiratory drive - titrate oxygen to keep sats 90-93% - will contact [facility] to see who is the vendor that provides and maintains her Trilogy device; she may need a change in settings to increase her Ve - minute ventilation. (2) Asthma: Code(s): J45.909 - Unspecified asthma, uncomplicated Status: Acute Assessment and Plan: Stable, no signs of exacerbation. (3) Obstructive sleep apnea: Code(s): G47.33 - Obstructive sleep apnea (adult) (pediatric) Status: Acute Assessment and Plan: Likely very severe, may have central apneas as well. BIPAP seems to be good mode for her right now. Subjective Date/time seen: 08/15/20 21:50 Interval history: The patient's hypercapnia worsened today. She is on less O2 so her oxygenation is more normal on 1 L/min. She has a Trilogy device at [facility], has used it several months. She is completely alert, is sleeping well at night, is not napping in the daytime, currently is playing a game on her phone. She has been treated for an infection with MERCEDES in her thoracic spine as well as a UTI. She is now on oral antibiotics which will continue for several weeks as an outpatient. Shani RUIZ adjusted the settings on the BiPAP, and the patient was able to tolerate these well. FiO2 has already been decreased to 1 L/min. Review of Systems Review of Systems: All systems reviewed & are unremarkable except as noted in HPI and below Exam Const: General: no acute distress Eyes: General: appearance normal, both eyes and all related structures Neck: Neck: supple Resp: Auscultation: clear to auscultation bilaterally and diminished lung sounds Cardio: Rate: regular rate Rhythm: regular rhythm Heart sounds: no gallops and no murmurs Neuro: Other: alert and responsive, answers all questions appropriately Extrem: General: normal to inspection, normal exam except as noted, no edema and no pedal edema Psych: Mental Status: mental status grossly normal Objective Data Vital Signs Vital Signs: Vital Signs - 24 hr 08/14/20 22:50 08/15/20 01:25 08/15/20 01:27 Temperature Pulse Rate 56 L 62 62 Respiratory Rate 18 18 18 Blood Pressure Pulse Oximetry 96 97 08/15/20 01:31 08/15/20 05:01 08/15/20 07:45 Temperature 36.2 C L Pulse Rate 62 59 L Respiratory Rate 18 18 Blood Pressure 138/75 Pulse Oximetry 97 95 08/15/20 07:46 08/15/20 07:59 08/15/20 08:31 Temperature Pulse Rate 68 62 69 Respiratory Rate 18 18 Blood Pressure Pulse Oximetry 08/15/20 14:00 08/15/20 15:34 08/15/20 15:45 Temperature 36.2 C L Pulse Rate 60 70 70 Respiratory Rate 19 20 20 Blood Pressure 128/75 Pulse Oximetry 100 96 08/15/20 15:46 08/15/20 21:21 08/15/20 21:34 Temperature Pulse Rate 68 72 70 Respiratory Rate 20 20 20 Blood Pressure Pulse Oximetry 94 08/15/20 21:39 Temperature 36.1 C L Pulse Rate 69 Respiratory Rate 17 Blood Pressure 110/56 L Pulse Oximetry 99 Intake/Output Intake/Output: Intake & Output 08/12/20 08/13/20 08/14/20 08/15/20 23:59 23:59 23:59 23:59 Intake Total 3309.75 1689.75 500 Output Total 275 Balance 330.75 168.75 225 Meds/Results Medi
[2020-08-16] VITALS (14 sets, daily range): BP systolic 100–143; BP diastolic 51–75; PULSE 59–84; RESP 16–20; TEMP 35.7–36.9; O2SAT 95–98
[2020-08-16] MEDS: HYDROcodone/acetaminophen (*CRX) 5-325 MG TABLET 1 TAB PO ×2 (00:13→13:32)
[2020-08-16] MEDS: IPRATROPIUM BR 0.02% INH SOLN 0.5 MG/2.5 ML VIAL INHALATION ×4 (02:12→22:13)
[2020-08-16] MEDS: ALBUTEROL SULFATE NEB 2.5 MG/0.5 ML INH INHALATION ×4 (02:12→22:13)
[2020-08-16 05:00] LABS: Alveolar/Arterial O2 Gradient 24.7 mmHg; Base Excess ABG 12.8 mEq/l (+/-2.0); Fractional Inspired Oxygen 25 %; HCO3 ABG 39.6 mEq/l (22.0-26.0); Oxygen Saturation ABG 94.4 % (95.0-100.0); Oxyhemoglobin 93.7 % THb (90.0-100.0); PO2 ABG 74.6 mmHg (80.0-100.0); PO2 FiO2 Ratio Arterial Blood 2.98 %; pH ABG 7.393 (7.350-7.450)
[2020-08-16 05:02] LABS: Modified Allen's Test Pass; PCO2 ABG 66.5 mmHg (35.0-45.0); Site Drawn RIGHT RADIAL
[2020-08-16 05:03] LABS: Device NON-INVASIVE VENT; Non-Invasive Expiratory Pressure 5 CMH2O; Non-Invasive Inspiratory Pressure 22 CMH2O; Non-Invasive Vent Rate 16 /MIN
[2020-08-16 05:19] LABS: Basophils Percent Auto 0.5 % (0.2-1.2); Eosinophils Absolute Auto 0.5 K/mm3 (0-0.3); Eosinophils Percent Auto 5.7 % (0-4.4); Hematocrit 27.8 % (37.0-47.0); Hemoglobin 8.1 g/dL (12.0-15.0); Immature Granulocyte Absolute 0.02 K/mm3 (0.00-0.031); Immature Granulocyte Percent A 0.2 % (0-0.5); Lymphocytes Absolute Auto 1.51 K/mm3 (0.9-3.2); Lymphocytes Percent Auto 18.1 % (18.3-44.2); Mean Corpuscular HGB Conc 29.1 g/dl (32-36); Mean Corpuscular Hemoglobin 29.1 pg (26-34); Mean Platelet Volume 9.2 fl (7.4-10.4); Monocytes Percent Auto 11.4 % (2.6-8.5); Neutrophils Absolute Auto 5.4 K/mm3 (1.3-6.7); Neutrophils Percent Auto 64.1 % (45.5-73.1); Platelet Count Result 307 k/mm3 (150-375); Red Blood Count 2.78 M/mm3 (4.2-5.4); Red Cell Distribution Width 16.4 % (11.5-14.5); White Blood Count 8.4 K/mm3 (4.5-10.0)
[2020-08-16] MEDS: dilTIAZem HCL 30 MG TABLET PO ×3 (05:27→22:13)
[2020-08-16] MEDS: dilTIAZem HCL 60 MG TABLET PO ×3 (05:27→22:13)
[2020-08-16] MEDS: METOCLOPRAMIDE HCL 10 MG TABLET PO ×3 (05:27→16:39)
[2020-08-16 05:43] LABS: Hypochromasia 1+ (NORMAL); Microcytosis 1+ (NORMAL); Platelet Estimate Adequate (Adequate)
[2020-08-16 05:54] LABS: Anion Gap 2.99999 mmol/L (8-16); Blood Urea Nitrogen 11 mg/dL (7-17); Calcium 10.1 mg/dL (8.4-10.2); Carbon Dioxide > 40 mmol/L (22-30); Chloride 93 mmol/L (98-107); Estimated CRCL calculation 80 ml/min; Estimated Glomerular Filt Rate > 60; Glucose 103 mg/dL (65-105); Potassium 3.2 mmol/L (3.4-5.0); Sodium 136 mmol/L (137-145)
[2020-08-16] MEDS: BUDESONIDE RESPULE NEB 0.5 MG/2 ML AMP INHALATION ×2 (07:59→22:13)
[2020-08-16] MEDS: LACTULOSE 20 GM/30 ML UDC PO (08:55)
[2020-08-16] MEDS: POTASSIUM CHLORIDE 20 MEQ PACKET (FOR LIQUID) PO (08:55)
[2020-08-16] MEDS: ATORVASTATIN 10 MG TABLET PO (08:56)
[2020-08-16] MEDS: MULTIVITAMINS THERAPEUTIC TAB (*BKC) 1 TABLET PO (08:56)
[2020-08-16] MEDS: CEPHALEXIN 500 MG CAPSULE 1000 MG PO ×2 (08:56→22:14)
[2020-08-16] MEDS: acetaZOLAMIDE TAB 250 MG TABLET PO (08:56)
[2020-08-16] MEDS: SPIRONOLACTONE 25 MG TABLET PO (08:56)
[2020-08-16] MEDS: SACCHAROMYCES BOULARDII 250 MG CAPSULE PO ×2 (08:56→16:38)
[2020-08-16] MEDS: MAGNESIUM OXIDE 400 MG TABLET PO (08:56)
[2020-08-16] MEDS: METOPROLOL TARTRATE 12.5 MG TABLET PO ×2 (08:56→22:13)
[2020-08-16] MEDS: APIXABAN 5 MG TABLET PO (08:56)
[2020-08-16] MEDS: PREGABALIN (*CRX) 75 MG CAPSULE PO ×2 (08:56→22:13)
[2020-08-16] MEDS: FERROUS SULFATE 324 MG TABLET PO (08:56)
[2020-08-16] MEDS: CHOLECALCIFEROL 1,000 UNITS TABLET 1000 UNITS PO (08:57)
[2020-08-16] MEDS: TOLNAFTATE 1% POWDER 45 GM BTL 1 APPLIC TOPICAL ×2 (11:49→16:39)
--- NOTE | 2020-08-16 13:07 | PM.IMPN ---
Progress Note: A&P Assessment and Plan (1) Acute and chronic respiratory failure with hypercapnia: Code(s): J96.22 - Acute and chronic respiratory failure with hypercapnia Status: Acute Assessment and Plan: secondary to sleep apnea and asthma, pt is on BIPAP here. CXR ? not likely to be pneumonia as though, likely more chronic changes as no cough more descreased BS in the lungs. (2) Acute on chronic respiratory failure with hypoxia and hypercapnia: Code(s): J96.21 - Acute and chronic respiratory failure with hypoxia; J96.22 - Acute and chronic respiratory failure with hypercapnia Status: Acute Assessment and Plan: On supplemental oxygen during the day and BIPAP prn. [facility] in SNF (3) UTI (urinary tract infection): Qualifiers: Urinary tract infection type: site unspecified Code(s): N39.0 - Urinary tract infection, site not specified Status: Acute Assessment and Plan: On Gentamicin + Imipenem now cephalexin for Pseudomonas UTI (4) Discitis thoracic region: Onset Date: ~06/2020 Code(s): M46.44 - Discitis, unspecified, thoracic region Status: Acute Assessment and Plan: Continue Cephalexin mcc. (5) Obstructive sleep apnea: Code(s): G47.33 - Obstructive sleep apnea (adult) (pediatric) Status: Acute Assessment and Plan: Continuous CPAP at night time. (6) Paroxysmal atrial fibrillation: Code(s): I48.0 - Paroxysmal atrial fibrillation Status: Acute Assessment and Plan: Rate controlled. (7) Essential hypertension: Code(s): I10 - Essential (primary) hypertension Status: Acute Assessment and Plan: Well controlled. (8) AMS (altered mental status): Code(s): R41.82 - Altered mental status, unspecified Status: Acute Assessment and Plan: Resolved. (9) Ileus: Code(s): K56.7 - Ileus, unspecified Status: Acute Assessment and Plan: Pt has Ng tube in situ. pt advised to walk pt not able to walk for years, due to weakness in her legs? uses pramod lift and wheelchair, will consult GI Subjective Date/time seen: 08/16/20 13:07 Interval history: Trae is a 70-year-old female with multiple medical problems including morbid obesity, chronic respiratory failure, obesity hypoventilation syndrome, obstructive sleep apnea, diastolic congestive heart failure, paroxysmal atrial fibrillation, and several other comorbidities who presented to the emergency department earlier today via EMS from a local [facility] facility for evaluation of lethargy and hypoxia. SOB is ongoing, pt is on BIPAP. Pt is feeling better from abdominal distension, with NG tube insitu, brownish food content coming back. Chronically immobile uses pramod lift and wheelchair. Pt seen by ID for recent MERCEDES T spine discitis and OM with UTI now. Review of Systems Review of Systems: All systems reviewed & are unremarkable except as noted in HPI and below Respiratory: Respiratory: Reports dyspnea and Reports wheezing Gastrointestinal: Gastrointestinal: Reports bloating Exam Narrative: Exam Narrative: Morbidly obese in bed, immobile. Ng tube in situ Const: General: cooperative, comfortable, no acute distress, alert, awake, lethargic and other (Morbid obesity, NAD.) Nutritional Appearance: obese Orientation/consciousness: patient oriented x3 and lethargic Limitations: physical limitations Other: Chronically ill looking. HENMT: Head: normal to inspection and normocephalic Ears: hearing grossly normal bilaterally General nose exam: Normal external nose present Face and sinus: normal facial exam Mouth: Yes Normal oral and palatal mucosa present Eyes: General: appearance normal, both eyes and all related structures Pupils: Equal, round and reactive pupils present EOM: EOMs intact bilaterally Neck: Neck: full ROM, no lymphadenopathy and no JVD Lymphatic: no lymphadenopathy note
[2020-08-16] MEDS: POTASSIUM CHLORIDE 20 MEQ PACKET (FOR LIQUID) 40 MEQ PO (16:38)
[2020-08-17] VITALS (15 sets, daily range): BP systolic 120–134; BP diastolic 58–70; PULSE 60–84; RESP 16–18; TEMP 36.2–36.8; O2SAT 97–100
[2020-08-17] MEDS: HYDROcodone/acetaminophen (*CRX) 5-325 MG TABLET 1 TAB PO ×3 (01:30→22:01)
[2020-08-17] MEDS: ALBUTEROL SULFATE NEB 2.5 MG/0.5 ML INH INHALATION ×4 (03:28→21:23)
[2020-08-17] MEDS: IPRATROPIUM BR 0.02% INH SOLN 0.5 MG/2.5 ML VIAL INHALATION ×4 (03:28→21:22)
[2020-08-17] MEDS: ALTEPLASE 2 MG VIAL (CATHFLO) IV PUSH (05:26)
[2020-08-17] MEDS: dilTIAZem HCL 30 MG TABLET PO ×3 (05:27→22:02)
[2020-08-17] MEDS: dilTIAZem HCL 60 MG TABLET PO ×3 (05:27→22:02)
[2020-08-17] MEDS: METOCLOPRAMIDE HCL 10 MG TABLET PO ×3 (05:30→17:09)
[2020-08-17 05:43] LABS: Basophils Percent Auto 0.5 % (0.2-1.2); Eosinophils Absolute Auto 0.3 K/mm3 (0-0.3); Eosinophils Percent Auto 3.6 % (0-4.4); Hematocrit 29.2 % (37.0-47.0); Hemoglobin 8.4 g/dL (12.0-15.0); Immature Granulocyte Absolute 0.03 K/mm3 (0.00-0.031); Immature Granulocyte Percent A 0.4 % (0-0.5); Lymphocytes Absolute Auto 1.02 K/mm3 (0.9-3.2); Lymphocytes Percent Auto 12.4 % (18.3-44.2); Mean Corpuscular HGB Conc 28.8 g/dl (32-36); Mean Corpuscular Hemoglobin 29.4 pg (26-34); Mean Corpuscular Volume 102.1 fl (80-100); Mean Platelet Volume 9.6 fl (7.4-10.4); Monocytes Absolute Auto 0.9 K/mm3 (0.1-0.6); Monocytes Percent Auto 10.6 % (2.6-8.5); Neutrophils Percent Auto 72.5 % (45.5-73.1); Platelet Count Result 280 k/mm3 (150-375); Red Blood Count 2.86 M/mm3 (4.2-5.4); White Blood Count 8.2 K/mm3 (4.5-10.0)
[2020-08-17 06:14] LABS: Hypochromasia 1+ (NORMAL); Platelet Estimate Adequate (Adequate)
[2020-08-17 06:15] LABS: Microcytosis 1+ (NORMAL)
[2020-08-17] MEDS: BUDESONIDE RESPULE NEB 0.5 MG/2 ML AMP INHALATION ×2 (08:11→21:22)
[2020-08-17] MEDS: SACCHAROMYCES BOULARDII 250 MG CAPSULE PO ×2 (09:42→17:10)
[2020-08-17] MEDS: CEPHALEXIN 500 MG CAPSULE 1000 MG PO ×2 (09:42→22:02)
[2020-08-17] MEDS: LACTULOSE 20 GM/30 ML UDC PO (09:42)
[2020-08-17] MEDS: APIXABAN 5 MG TABLET PO (09:42)
[2020-08-17] MEDS: METOPROLOL TARTRATE 12.5 MG TABLET PO ×2 (09:43→22:02)
[2020-08-17] MEDS: MULTIVITAMINS THERAPEUTIC TAB (*BKC) 1 TABLET PO (09:43)
[2020-08-17] MEDS: MAGNESIUM OXIDE 400 MG TABLET PO (09:43)
[2020-08-17] MEDS: FERROUS SULFATE 324 MG TABLET PO (09:43)
[2020-08-17] MEDS: ATORVASTATIN 10 MG TABLET PO (09:43)
[2020-08-17] MEDS: CHOLECALCIFEROL 1,000 UNITS TABLET 1000 UNITS PO (09:43)
[2020-08-17] MEDS: POTASSIUM CHLORIDE 20 MEQ PACKET (FOR LIQUID) 40 MEQ PO ×2 (09:44→17:09)
[2020-08-17] MEDS: SPIRONOLACTONE 25 MG TABLET PO (09:44)
[2020-08-17] MEDS: TOLNAFTATE 1% POWDER 45 GM BTL 1 APPLIC TOPICAL ×2 (09:45→17:10)
[2020-08-17] MEDS: acetaZOLAMIDE TAB 250 MG TABLET PO ×2 (09:45→22:03)
[2020-08-17] MEDS: PREGABALIN (*CRX) 75 MG CAPSULE PO ×2 (09:49→22:01)
[2020-08-17 10:54] LABS: Anion Gap 5.99999 mmol/L (8-16); Blood Urea Nitrogen 11 mg/dL (7-17); Calcium 10.3 mg/dL (8.4-10.2); Carbon Dioxide > 40 mmol/L (22-30); Chloride 93 mmol/L (98-107); Estimated CRCL calculation 71 ml/min; Estimated Glomerular Filt Rate > 60; Glucose 117 mg/dL (65-105); Potassium 3.5 mmol/L (3.4-5.0); Sodium 139 mmol/L (137-145)
--- NOTE | 2020-08-17 11:14 | PM.IMPN ---
Progress Note: A&P Assessment and Plan (1) Acute and chronic respiratory failure with hypercapnia: Code(s): J96.22 - Acute and chronic respiratory failure with hypercapnia Status: Acute Assessment and Plan: secondary to sleep apnea and asthma, pt is on BIPAP here. CXR ? not likely to be pneumonia as though, likely more chronic changes as no cough more descreased BS in the lungs. (2) Acute on chronic respiratory failure with hypoxia and hypercapnia: Code(s): J96.21 - Acute and chronic respiratory failure with hypoxia; J96.22 - Acute and chronic respiratory failure with hypercapnia Status: Acute Assessment and Plan: On supplemental oxygen during the day and BIPAP prn. [facility] in SNF (3) UTI (urinary tract infection): Qualifiers: Urinary tract infection type: site unspecified Code(s): N39.0 - Urinary tract infection, site not specified Status: Acute Assessment and Plan: On Gentamicin + Imipenem now cephalexin for Pseudomonas UTI (4) Discitis thoracic region: Onset Date: ~06/2020 Code(s): M46.44 - Discitis, unspecified, thoracic region Status: Acute Assessment and Plan: Continue Cephalexin intermediate. (5) Obstructive sleep apnea: Code(s): G47.33 - Obstructive sleep apnea (adult) (pediatric) Status: Acute Assessment and Plan: Continuous CPAP at night time. (6) Paroxysmal atrial fibrillation: Code(s): I48.0 - Paroxysmal atrial fibrillation Status: Acute Assessment and Plan: Rate controlled. (7) Essential hypertension: Code(s): I10 - Essential (primary) hypertension Status: Acute Assessment and Plan: Well controlled. (8) AMS (altered mental status): Code(s): R41.82 - Altered mental status, unspecified Status: Acute Assessment and Plan: Resolved. (9) Ileus: Code(s): K56.7 - Ileus, unspecified Status: Acute Assessment and Plan: Pt has Ng tube in situ. pt advised to walk pt not able to walk for years, due to weakness in her legs? uses pramod lift and wheelchair, will consult [facility] SOU[facility] from yesterday showing ileus. 2 nd time with ileus. Subjective Date/time seen: 08/17/20 11:14 Interval history: Trae is a 70-year-old female with multiple medical problems including morbid obesity, chronic respiratory failure, obesity hypoventilation syndrome, obstructive sleep apnea, diastolic congestive heart failure, paroxysmal atrial fibrillation, and several other comorbidities who presented to the emergency department earlier today via EMS from a local senior care facility for evaluation of lethargy and hypoxia. SOB is ongoing, pt is on BIPAP. Pt is feeling better from abdominal distension, with NG tube insitu, brownish food content coming back. Chronically immobile uses pramod lift and wheelchair. Pt seen by ID for recent MERCEDES T spine discitis and OM with UTI now. Review of Systems Review of Systems: All systems reviewed & are unremarkable except as noted in HPI and below Exam Narrative: Exam Narrative: Morbidly obese in bed, immobile. Ng tube in situ Const: General: cooperative, comfortable, no acute distress, alert, awake, lethargic and other (Morbid obesity, NAD.) Nutritional Appearance: obese Orientation/consciousness: patient oriented x3 and lethargic Limitations: physical limitations Other: Chronically ill looking. HENMT: Head: normal to inspection and normocephalic Ears: hearing grossly normal bilaterally General nose exam: Normal external nose present Face and sinus: normal facial exam Mouth: Yes Normal oral and palatal mucosa present Eyes: General: appearance normal, both eyes and all related structures Pupils: Equal, round and reactive pupils present EOM: EOMs intact bilaterally Neck: Neck: full ROM, no lymphadenopathy and no JVD Lymphatic: no lymphadenopathy noted Resp: Effort & Inspection: normal respiratory effort Auscul
--- NOTE | 2020-08-17 12:42 | WPDGICN ---
Assessment and Plan Assessment and plan (1) Ileus: Code(s): K56.7 - Ileus, unspecified Status: Acute Assessment and Plan: similar to previous presentation she denies nausea and she is already having BM's NGT in place, probably remove tomorrow and then we can start CLD multifactorial from obesity, chronic lung disease, bed rest, electrolyte imbalance, recent sepsis with discitis, etc (2) Acute and chronic respiratory failure with hypercapnia: Code(s): J96.22 - Acute and chronic respiratory failure with hypercapnia Status: Acute Assessment and Plan: improved, pulmonary on board (3) Discitis thoracic region: Onset Date: ~06/2020 Code(s): M46.44 - Discitis, unspecified, thoracic region Status: Acute Assessment and Plan: ID on board (4) Essential hypertension: Code(s): I10 - Essential (primary) hypertension Status: Acute (5) Chronic anemia: Code(s): D64.9 - Anemia, unspecified Status: Acute Assessment and Plan: hb has been stable at 8 (6) UTI (urinary tract infection): Qualifiers: Urinary tract infection type: site unspecified Code(s): N39.0 - Urinary tract infection, site not specified Status: Acute GI Consult Note Consult date/time: 08/17/20 12:42 Reason for consult: ileus HPI: Trina Larkin is a 70 year old female who is well known to me from recent hospitalization earlier this month, she has been in the hospital multiple time. She has multiple medical problems including atrial fibrillation, diastolic dysfunction, DVT on Eliquis, essential hypertension, left humeral fracture, MSSA diskitis and osteomyelitis who has been on IV anbiotics, chronic respiratory failure, obesity hypoventilation syndrome, obstructive sleep apnea She was readmitted several days ago with worsening respiratory status and found to have adynamic ileus again, similar to her recent hospital stay. NGT was placed. Patient is having BM's again, abdomen still distended but no report of nausea or vomiting. She is passing flatus. During previous hospitalization ileus thought to be multifactorial from hypokalemia, diskitis with inability to walk, respiratory status and other medical problems. She is comfortable now. Denies abdominal pain Review of Systems Constitutional: Constitutional: Reports weakness Eyes: Eyes: Denies blurry vision ENT: Reports Normal hearing present, Denies headache(s) and Denies neck pain Cardiovascular: Cardiovascular: Denies chest pain and Denies dyspnea Respiratory: Respiratory: Reports dyspnea on exertion Gastrointestinal: Gastrointestinal: Reports no additional gastrointestinal complaints Musculoskeletal: Musculoskeletal: Reports back pain Integumentary/Breasts: Skin/Breast: Denies dry skin Neurologic: Reports Normal hearing present, Denies headache(s) and Denies weakness Psychiatric: Psychiatric: Denies anxiety Endocrine: Endocrine: Denies change in body appearance Hematologic/Lymphatic: Hematologic/Lymphatic: Denies easy bleeding Allergic/Immunologic: Allergic/Immunologic: Denies urticaria PMFSH Past Medical History Medical History (Updated 08/13/20 @ 14:05 by Roxy Mcgowan MD) Chronic anemia Chronic respiratory failure with hypoxia and hypercapnia Chronic venous stasis dermatitis Deep venous thrombosis Diastolic congestive heart failure Echocardiogram in February 2020 showed mild enlargement of the left ventricle, normal left ventricular function with an ejection fraction of 60 to 65%, mild LV wall thickness, and bilateral atrial enlargement. Discitis thoracic region (~06/2020) T4 diskitis/osteomyelitis. Essential hypertension Morbid obesity Obesity hypoventilation syndrome Obstructive sleep apnea Paroxysmal atrial fibrillation Staphylococcus aureus bacteremia (~03/2020) Blood cultures positive for oxacillin sensitive Staph aureus in March, May, and June 2020. Surgical History Surgic
[2020-08-17] MEDS: SODIUM CHLORIDE 0.9% IV 1,000 ML 50 ML IV CONT (12:58)
--- NOTE | 2020-08-17 14:06 | PM.PNPUL ---
Progress Note: A&P Assessment and Plan (1) Acute and chronic respiratory failure with hypercapnia: Code(s): J96.22 - Acute and chronic respiratory failure with hypercapnia Status: Acute Assessment and Plan: Due to severe obesity, severe YESENIA - BIPAP changed Aug 15 with IPAP 22/EPAP 5, backup rate of 16, FiO2 25%. ABG was improved Aug 16. TV are around 450 -500. - continue BIPAP QHS and while napping. - Dr Gutierres discontinued her hydrocodone and gabapentin, ordered Lyrica instead as this is less sedating and less to decrease respiratory drive - titrate oxygen to keep sats 90-93% - will contact [facility] to see who is the vendor that provides and maintains her Trilogy device; she may need a change in settings to increase her Ve - minute ventilation. - increase acetazolamide to 250 mg BID instead of once a day as serum bicarb is still > 40. (2) Asthma: Code(s): J45.909 - Unspecified asthma, uncomplicated Status: Acute Assessment and Plan: Stable, no signs of exacerbation. (3) Obstructive sleep apnea: Code(s): G47.33 - Obstructive sleep apnea (adult) (pediatric) Status: Acute Assessment and Plan: Likely very severe, may have central apneas as well. BIPAP seems to be good mode for her right now. Subjective Date/time seen: 08/17/20 14:06 This 70 yo female is seen in follow up for acute and chronic respiratory failure. She is having problems with persistent ileus due to multiple medical factors. She is on 1 L/min and using BiPAP with all episodes of sleep. She is not sleepy in the daytime. This patient has 2 records, and the other record has much more information. Her entire ABG history is seen on the older chart. She has a Trilogy at her NH, and she will need changes in the settings before returning. She has been getting acetazolamide 250 mg in the am since 08/10, and may be able to tolerate this dose twice a day for 1-2 days to help decrease serum bicarb which is still > 40. Her pH is 7.39, not as high as I usually want to use this drug but we will continue cautiously. She is getting NG suction for her ileus which may contribute to contraction alkalosis. Review of Systems Review of Systems: All systems reviewed & are unremarkable except as noted in HPI and below Exam Const: General: no acute distress Eyes: General: appearance normal, both eyes and all related structures Neck: Neck: supple Resp: Auscultation: clear to auscultation bilaterally and diminished lung sounds Cardio: Rate: regular rate Rhythm: regular rhythm Heart sounds: no gallops and no murmurs GI: Inspection: distended Neuro: Other: alert and responsive, answers all questions appropriately Extrem: General: normal to inspection, normal exam except as noted and pedal edema (1+ both ankles) bilaterally Psych: Mental Status: mental status grossly normal Objective Data Vital Signs Vital Signs: Vital Signs - 24 hr 08/16/20 14:07 08/16/20 20:00 08/16/20 22:13 Temperature 36.9 C Pulse Rate 64 59 L 84 Respiratory Rate 16 18 Blood Pressure 143/75 H Pulse Oximetry 98 08/16/20 22:14 08/16/20 22:19 08/16/20 22:21 Temperature Pulse Rate 81 81 79 Respiratory Rate 18 18 18 Blood Pressure Pulse Oximetry 96 08/17/20 03:29 08/17/20 03:43 08/17/20 05:35 Temperature 36.8 C Pulse Rate 80 79 81 Respiratory Rate 18 18 18 Blood Pressure 124/58 L Pulse Oximetry 97 99 08/17/20 08:11 08/17/20 08:21 08/17/20 09:30 Temperature Pulse Rate 70 76 70 Respiratory Rate 18 18 18 Blood Pressure Pulse Oximetry 98 98 08/17/20 13:57 Temperature Pulse Rate 72 Respiratory Rate 18 Blood Pressure Pulse Oximetry Intake/Output Intake/Output: Intake & Output
[2020-08-18] VITALS (13 sets, daily range): BP systolic 112–133; BP diastolic 64–72; PULSE 64–81; RESP 16–18; TEMP 36.3–36.6; O2SAT 96–100
[2020-08-18] MEDS: ALBUTEROL SULFATE NEB 2.5 MG/0.5 ML INH INHALATION ×4 (02:45→21:30)
[2020-08-18] MEDS: IPRATROPIUM BR 0.02% INH SOLN 0.5 MG/2.5 ML VIAL INHALATION ×4 (04:45→21:29)
[2020-08-18] MEDS: dilTIAZem HCL 60 MG TABLET PO ×3 (05:32→20:51)
[2020-08-18] MEDS: dilTIAZem HCL 30 MG TABLET PO ×3 (05:32→20:51)
[2020-08-18] MEDS: METOCLOPRAMIDE HCL 10 MG TABLET PO ×3 (05:32→18:59)
[2020-08-18 05:34] LABS: Basophils Percent Auto 0.5 % (0.2-1.2); Eosinophils Absolute Auto 0.6 K/mm3 (0-0.3); Eosinophils Percent Auto 6.6 % (0-4.4); Hematocrit 28.6 % (37.0-47.0); Hemoglobin 8.3 g/dL (12.0-15.0); Immature Granulocyte Absolute 0.02 K/mm3 (0.00-0.031); Immature Granulocyte Percent A 0.2 % (0-0.5); Lymphocytes Absolute Auto 1.25 K/mm3 (0.9-3.2); Lymphocytes Percent Auto 14.2 % (18.3-44.2); Mean Corpuscular Hemoglobin 30.1 pg (26-34); Mean Corpuscular Volume 103.6 fl (80-100); Mean Platelet Volume 9.1 fl (7.4-10.4); Monocytes Absolute Auto 1.2 K/mm3 (0.1-0.6); Monocytes Percent Auto 13.3 % (2.6-8.5); Neutrophils Absolute Auto 5.8 K/mm3 (1.3-6.7); Neutrophils Percent Auto 65.2 % (45.5-73.1); Platelet Count Result 295 k/mm3 (150-375); Red Blood Count 2.76 M/mm3 (4.2-5.4); Red Cell Distribution Width 17.2 % (11.5-14.5); White Blood Count 8.8 K/mm3 (4.5-10.0)
[2020-08-18 05:50] LABS: Anion Gap 3.99999 mmol/L (8-16); Blood Urea Nitrogen 9 mg/dL (7-17); Calcium 9.4 mg/dL (8.4-10.2); Carbon Dioxide > 40 mmol/L (22-30); Chloride 91 mmol/L (98-107); Estimated CRCL calculation 71 ml/min; Estimated Glomerular Filt Rate > 60; Glucose 117 mg/dL (65-105); Potassium 2.7 mmol/L (3.4-5.0); Sodium 135 mmol/L (137-145)
[2020-08-18 06:16] LABS: Platelet Estimate Adequate (Adequate)
[2020-08-18 06:17] LABS: Anisocytosis 1+ (NORMAL); Hypochromasia 1+ (NORMAL); Stomatocytes 1+ (NORMAL)
[2020-08-18] MEDS: SODIUM CHLORIDE 0.9% IV 1,000 ML 50 ML IV CONT (06:29)
[2020-08-18] MEDS: BUDESONIDE RESPULE NEB 0.5 MG/2 ML AMP INHALATION ×2 (07:14→21:30)
[2020-08-18] MEDS: METOPROLOL TARTRATE 12.5 MG TABLET PO ×2 (08:25→20:42)
[2020-08-18] MEDS: ATORVASTATIN 10 MG TABLET PO (08:25)
[2020-08-18] MEDS: POTASSIUM CHLORIDE 20 MEQ PACKET (FOR LIQUID) 40 MEQ PO ×2 (08:25→18:59)
[2020-08-18] MEDS: FERROUS SULFATE 324 MG TABLET PO (08:25)
[2020-08-18] MEDS: MAGNESIUM OXIDE 400 MG TABLET PO (08:25)
[2020-08-18] MEDS: LACTULOSE 20 GM/30 ML UDC PO (08:25)
[2020-08-18] MEDS: CEPHALEXIN 500 MG CAPSULE 1000 MG PO ×2 (08:26→20:40)
[2020-08-18] MEDS: SACCHAROMYCES BOULARDII 250 MG CAPSULE PO ×2 (08:26→19:01)
[2020-08-18] MEDS: acetaZOLAMIDE TAB 250 MG TABLET PO ×2 (08:26→20:40)
[2020-08-18] MEDS: MULTIVITAMINS THERAPEUTIC TAB (*BKC) 1 TABLET PO (08:26)
[2020-08-18] MEDS: CHOLECALCIFEROL 1,000 UNITS TABLET 1000 UNITS PO (08:26)
[2020-08-18] MEDS: TOLNAFTATE 1% POWDER 45 GM BTL 1 APPLIC TOPICAL ×2 (08:27→19:02)
[2020-08-18] MEDS: SPIRONOLACTONE 25 MG TABLET PO (08:27)
[2020-08-18] MEDS: APIXABAN 5 MG TABLET PO (08:27)
[2020-08-18] MEDS: PREGABALIN (*CRX) 75 MG CAPSULE PO ×2 (08:30→20:40)
--- NOTE | 2020-08-18 08:36 | PC.NURSE ---
IVFs paused while K rider infuses
[2020-08-18 12:32] LABS: Anion Gap 3.99999 mmol/L (8-16); Blood Urea Nitrogen 8 mg/dL (7-17); Calcium 9.4 mg/dL (8.4-10.2); Carbon Dioxide > 40 mmol/L (22-30); Chloride 92 mmol/L (98-107); Estimated CRCL calculation 71 ml/min; Estimated Glomerular Filt Rate > 60; Glucose 146 mg/dL (65-105); Magnesium 1.8 mg/dL (1.6-2.3); Potassium 3.2 mmol/L (3.4-5.0); Sodium 136 mmol/L (137-145)
--- NOTE | 2020-08-18 12:33 | WPDGIPROGNO ---
Progress Note: A&P Assessment and Plan (1) Ileus: Code(s): K56.7 - Ileus, unspecified Status: Acute Assessment and Plan: abdomen distended but clinically doing better and ileus resolved given the fact that she is having BM's, denies nausea and tolerating diet ileus is multifactorial (2) Acute and chronic respiratory failure with hypercapnia: Code(s): J96.22 - Acute and chronic respiratory failure with hypercapnia Status: Acute Assessment and Plan: by pulmonary, improved, using bipap (3) Discitis thoracic region: Onset Date: ~06/2020 Code(s): M46.44 - Discitis, unspecified, thoracic region Status: Acute Assessment and Plan: she has been treated by ID (4) Chronic anemia: Code(s): D64.9 - Anemia, unspecified Status: Acute Assessment and Plan: hb low but stable, on blood thinners (5) Chronic diastolic heart failure: Code(s): I50.32 - Chronic diastolic (congestive) heart failure Status: Acute (6) Obstructive sleep apnea: Code(s): G47.33 - Obstructive sleep apnea (adult) (pediatric) Status: Acute Subjective Date/time seen: 08/18/20 12:33 Interval history: NGT removed, she had 3 BM's yesterday, no nausea or vomiting, denies abdominal pain Review of Systems Review of Systems: All systems reviewed & are unremarkable except as noted in HPI and below Exam Const: General: no acute distress Other: chronically ill appearing, no distress. Morbidly obese, lying in bed Eyes: General: appearance normal, both eyes and all related structures Neck: Neck: supple Resp: Auscultation: clear to auscultation bilaterally and diminished lung sounds Cardio: Rate: regular rate Rhythm: regular rhythm Heart sounds: no gallops and no murmurs GI: Inspection: distended GI Palp: No Tenderness to palpation present (GI) and No Guarding due to palpation present (GI) Auscultation: Hypoactive bowel sounds present Skin: General skin exam: normal color Neuro: Speech: normal speech Other: alert and responsive, answers all questions appropriately Extrem: General: normal to inspection and normal exam except as noted Psych: Mental Status: mental status grossly normal Objective Data Vital Signs Vital Signs: Vital Signs - 24 hr 08/17/20 13:57 08/17/20 14:00 08/17/20 14:07 Temperature 97.7 F Pulse Rate 72 84 78 Respiratory Rate 18 18 18 Blood Pressure 120/70 Pulse Oximetry 100 08/17/20 19:47 08/17/20 21:25 08/17/20 21:26 Temperature 97.1 F L Pulse Rate 60 75 Respiratory Rate 18 18 Blood Pressure 134/66 Pulse Oximetry 100 98 08/17/20 21:41 08/17/20 22:02 08/17/20 22:30 Temperature Pulse Rate 79 64 76 Respiratory Rate 18 16 Blood Pressure Pulse Oximetry 98 08/18/20 02:45 08/18/20 03:00 08/18/20 05:26 Temperature 97.8 F Pulse Rate 81 76 67 Respiratory Rate 18 16 18 Blood Pressure 133/64 Pulse Oximetry 98 98 08/18/20 07:16 08/18/20 07:17 08/18/20 07:25 Temperature Pulse Rate 78 78 Respiratory Rate 18 18 Blood Pressure Pulse Oximetry 97 Intake/Output Intake/Output: Intake & Output 08/15/20 08/16/20 08/17/20 08/18/20 23:59 23:59 23:59 23:59 Intake Total 500 1380 2620 Output Total 275 1225 1700 500 Balance 225 -5435 -290 7230 Meds/Results Medications: Active Medications Generic Name Dose Route Start Last Admin Trade Name Freq PRN Reason Stop Dose Admin Hydrocodone Bitart/Acetaminophen 1 tab 08/12/20 09:36 08/17/20 22:01 [place] 5-325 Mg PO 1 tab Q12HR PRN Administration Pain Rated 4-6 Acetazolamide 250 mg 08/18/20 09:00 08/18/20 08:26 Diamox Tab PO 250 mg QAM DEWAYNE Administration Acetazolamide 250 mg 08/17/20 21:00 08/18/20 11:47 Diamox Tab PO Not Given Q12HR DEWAYNE Albuterol 2.5 mg 08/10/20 02:00 08/18/20 07:13 Albuterol Sulf Neb 2.5mg/0.5ml INHALATION 2.5 mg Q6HRT DEWAYNE Administration Alteplase,
[2020-08-18] MEDS: HYDROcodone/acetaminophen (*CRX) 5-325 MG TABLET 1 TAB PO (13:36)
--- NOTE | 2020-08-18 14:30 | PM.IMPN ---
Progress Note: A&P Assessment and Plan (1) Acute and chronic respiratory failure with hypercapnia: Code(s): J96.22 - Acute and chronic respiratory failure with hypercapnia Status: Acute Assessment and Plan: secondary to sleep apnea and asthma, CXR ? not likely to be pneumonia as though, likely more chronic changes as no cough more descreased BS in the lungs. Pt has triology in SNF. (2) Acute on chronic respiratory failure with hypoxia and hypercapnia: Code(s): J96.21 - Acute and chronic respiratory failure with hypoxia; J96.22 - Acute and chronic respiratory failure with hypercapnia Status: Acute Assessment and Plan: On supplemental oxygen during the day, pt has. 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 (5) Obstructive sleep apnea: Code(s): G47.33 - Obstructive sleep apnea (adult) (pediatric) Status: Acute Assessment and Plan: triology in SNF (6) Paroxysmal atrial fibrillation: Code(s): I48.0 - Paroxysmal atrial fibrillation Status: Acute Assessment and Plan: Rate controlled. (7) Essential hypertension: Code(s): I10 - Essential (primary) hypertension Status: Acute Assessment and Plan: Well controlled. (8) AMS (altered mental status): Code(s): R41.82 - Altered mental status, unspecified Status: Acute Assessment and Plan: Resolved. (9) Ileus: Code(s): K56.7 - Ileus, unspecified Status: Resolved Assessment and Plan: NG out pt tolerating Diet, hopeful Dc soon awaiting COVID test Subjective Date/time seen: 08/18/20 14:30 Interval history: Trae is a 70-year-old female with multiple medical problems including morbid obesity, chronic respiratory failure, obesity hypoventilation syndrome, obstructive sleep apnea, diastolic congestive heart failure, paroxysmal atrial fibrillation, who came to ED for evaluation of lethargy and hypoxia. \SOB is ongoing, likely chronic, from sleep apnea and asthma. Pt treated for ileus had NG removed yesterday, started on diet today doing well. Recent [place] T spine discitis and OM with UTI now. Pt can be discharged as soon as the COVID test is back. Pt to return to [facility]. Feels much better. Chronic immobility uses Norris lift and wheelchair Review of Systems Review of Systems: All systems reviewed & are unremarkable except as noted in HPI and below Cardiovascular: Cardiovascular: Denies no additional cardiovascular complaints Respiratory: Respiratory: Denies chest congestion, Denies cough, Denies hemoptysis, Reports dyspnea (chronic ) and Denies wheezing Gastrointestinal: Gastrointestinal: Denies no additional gastrointestinal complaints, Denies belching, Denies bloating, Denies constipation, Denies dysphagia, Denies dyspepsia, Denies diarrhea and Denies vomiting Exam Narrative: Exam Narrative: Morbidly obese in bed, immobile Const: General: cooperative, comfortable, no acute distress, alert, awake, lethargic and other (Morbid obesity, NAD.) Nutritional Appearance: obese Orientation/consciousness: patient oriented x3 and lethargic Limitations: physical limitations Other: Chronically ill looking. HENMT: Head: normal to inspection and normocephalic Ears: hearing grossly normal bilaterally General nose exam: Normal external nose present Face and sinus: normal facial exam Mouth: Yes Normal oral and palatal mucosa present Eyes: General: appearance normal, both eyes and all related structure
--- NOTE | 2020-08-18 15:33 | PC.NURSE ---
nursing superintendent house notified of need for COVID swab for this pt for [facility]
--- NOTE | 2020-08-18 19:08 | PC.NURSE ---
pt did well today, states she feels better, tolerated heart healthy diet, took a long nap this evening and did tolerate wearing Bipap, care coordinated around that
--- NOTE | 2020-08-18 21:37 | PM.PNPUL ---
Progress Note: A&P Assessment and Plan (1) Acute and chronic respiratory failure with hypercapnia: Code(s): J96.22 - Acute and chronic respiratory failure with hypercapnia Status: Acute (2) Asthma: Qualifiers: Asthma severity: unspecified severity Asthma persistence: persistent Asthma complication type: uncomplicated Qualified Code(s): J45.909 - Unspecified asthma, uncomplicated Code(s): J45.909 - Unspecified asthma, uncomplicated Status: Acute (3) Obstructive sleep apnea: Code(s): G47.33 - Obstructive sleep apnea (adult) (pediatric) Status: Acute Subjective Date/time seen: 08/18/20 21:37 Interval history: Still very lethargic during the day. I recommended that she wear her BIPAP when she's napping during the day. Review of Systems Review of Systems: All systems reviewed & are unremarkable except as noted in HPI and below Exam Const: General: no acute distress Eyes: General: appearance normal, both eyes and all related structures Neck: Neck: supple Resp: Auscultation: clear to auscultation bilaterally and diminished lung sounds Cardio: Rate: regular rate Rhythm: regular rhythm Heart sounds: no gallops and no murmurs GI: Inspection: distended Neuro: Other: alert and responsive, answers all questions appropriately Extrem: General: normal to inspection, normal exam except as noted and pedal edema (1+ both ankles) bilaterally Psych: Mental Status: mental status grossly normal Objective Data Vital Signs Vital Signs: Vital Signs - 24 hr 08/17/20 21:41 08/17/20 22:02 08/17/20 22:30 Temperature Pulse Rate 79 64 76 Respiratory Rate 18 16 Blood Pressure Pulse Oximetry 98 08/18/20 02:45 08/18/20 03:00 08/18/20 05:26 Temperature 36.6 C Pulse Rate 81 76 67 Respiratory Rate 18 16 18 Blood Pressure 133/64 Pulse Oximetry 98 98 08/18/20 07:16 08/18/20 07:17 08/18/20 07:25 Temperature Pulse Rate 78 78 Respiratory Rate 18 18 Blood Pressure Pulse Oximetry 97 08/18/20 13:49 08/18/20 13:55 08/18/20 13:57 Temperature Pulse Rate 77 77 78 Respiratory Rate 18 18 16 Blood Pressure Pulse Oximetry 98 08/18/20 14:00 08/18/20 20:00 08/18/20 20:42 Temperature 36.3 C L 36.6 C Pulse Rate 68 69 68 Respiratory Rate 16 16 Blood Pressure 126/72 112/70 Pulse Oximetry 100 100 Intake/Output Intake/Output: Intake & Output 08/15/20 08/16/20 08/17/20 08/18/20 23:59 23:59 23:59 23:59 Intake Total 500 1380 4440 Output Total 275 1225 1700 500 Balance 225 -1225 -320 3940 Meds/Results Medications: Active Medications Generic Name Dose Route Start Last Admin Trade Name Freq PRN Reason Stop Dose Admin Hydrocodone Bitart/Acetaminophen 1 tab 08/12/20 09:36 08/18/20 13:36 [place] 5-325 Mg PO 1 tab Q12HR PRN Administration Pain Rated 4-6 Acetazolamide 250 mg 08/18/20 09:00 08/18/20 08:26 Diamox Tab PO 250 mg QAM DEWAYNE Administration Acetazolamide 250 mg 08/17/20 21:00 08/18/20 20:40 Diamox Tab PO 250 mg Q12HR DEWAYNE Administration Albuterol 2.5 mg 08/10/20 02:00 08/18/20 21:30 Albuterol Sulf Neb 2.5mg/0.5ml INHALATION 2.5 mg Q6HRT DEWAYNE Administration Alteplase, Recombinant 2 mg 08/08/20 11:39 08/17/20 05:26 Cathflo Activase IV PUSH 2 mg ONCE PRN Administration Line Occlusion Apixaban 5 mg 08/09/20 09:00 08/18/20 08:27 Eliquis PO 5 mg DAILY DEWAYNE Administration Atorvastatin Calcium 10 mg 08/09/20 09:00 08/18/20 08:25 Lipitor PO 10 mg DAILY DEWAYNE Administration Budesonide 0.5 mg 08/10/20 20:00 08/18/20 21:30 Pulmicort Respule Neb INHALATION 0.5 mg Q12HRT DEWAYNE Administration Cephalexin HCl 1,000 mg 08/15/20 09:00 08/18/20 20:40 Keflex Capsule PO 01/12/21 09:01 1,000 mg Q12HR DEWAYNE Administration Diltiazem HCl 60 mg 08/09/20 06:00 08/18/20 20:51 Cardizem Tab PO 60 mg Q8HR DEWAYNE Administration Dil
[2020-08-19] VITALS (13 sets, daily range): BP systolic 105–115; BP diastolic 55–58; PULSE 52–72; RESP 16–21; TEMP 35.7–36.3; O2SAT 91–100
[2020-08-19] MEDS: IPRATROPIUM BR 0.02% INH SOLN 0.5 MG/2.5 ML VIAL INHALATION ×3 (02:58→14:55)
[2020-08-19] MEDS: ALBUTEROL SULFATE NEB 2.5 MG/0.5 ML INH INHALATION ×3 (02:58→14:55)
[2020-08-19] MEDS: SODIUM CHLORIDE 0.9% IV 1,000 ML 50 ML IV CONT (04:08)
[2020-08-19 06:09] LABS: Basophils Percent Auto 0.4 % (0.2-1.2); Eosinophils Absolute Auto 0.4 K/mm3 (0-0.3); Eosinophils Percent Auto 4.9 % (0-4.4); Hematocrit 26.7 % (37.0-47.0); Hemoglobin 7.5 g/dL (12.0-15.0); Immature Granulocyte Absolute 0.03 K/mm3 (0.00-0.031); Immature Granulocyte Percent A 0.4 % (0-0.5); Mean Corpuscular HGB Conc 28.1 g/dl (32-36); Mean Corpuscular Volume 103.1 fl (80-100); Mean Platelet Volume 9.1 fl (7.4-10.4); Monocytes Absolute Auto 1.1 K/mm3 (0.1-0.6); Monocytes Percent Auto 13.2 % (2.6-8.5); Neutrophils Absolute Auto 5.8 K/mm3 (1.3-6.7); Neutrophils Percent Auto 69.1 % (45.5-73.1); Platelet Count Result 251 k/mm3 (150-375); Red Blood Count 2.59 M/mm3 (4.2-5.4); White Blood Count 8.3 K/mm3 (4.5-10.0)
[2020-08-19 06:30] LABS: Anion Gap 3 mmol/L (8-16); Blood Urea Nitrogen 7 mg/dL (7-17); Calcium 9.1 mg/dL (8.4-10.2); Carbon Dioxide 39 mmol/L (22-30); Chloride 96 mmol/L (98-107); Estimated CRCL calculation 71 ml/min; Estimated Glomerular Filt Rate > 60; Glucose 114 mg/dL (65-105); Potassium 2.9 mmol/L (3.4-5.0); Sodium 138 mmol/L (137-145)
[2020-08-19] MEDS: dilTIAZem HCL 60 MG TABLET PO ×2 (06:47→14:39)
[2020-08-19] MEDS: METOCLOPRAMIDE HCL 10 MG TABLET PO ×3 (06:47→17:36)
[2020-08-19] MEDS: dilTIAZem HCL 30 MG TABLET PO ×2 (06:47→14:39)
[2020-08-19] MEDS: BUDESONIDE RESPULE NEB 0.5 MG/2 ML AMP INHALATION (08:12)
[2020-08-19] MEDS: TOLNAFTATE 1% POWDER 45 GM BTL 1 APPLIC TOPICAL ×2 (09:11→17:34)
[2020-08-19] MEDS: PREGABALIN (*CRX) 75 MG CAPSULE PO (09:14)
[2020-08-19] MEDS: LACTULOSE 20 GM/30 ML UDC PO (09:14)
[2020-08-19] MEDS: acetaZOLAMIDE TAB 250 MG TABLET PO ×2 (09:14→09:20)
[2020-08-19] MEDS: ATORVASTATIN 10 MG TABLET PO (09:15)
[2020-08-19] MEDS: CEPHALEXIN 500 MG CAPSULE 1000 MG PO (09:15)
[2020-08-19] MEDS: METOPROLOL TARTRATE 12.5 MG TABLET PO (09:15)
[2020-08-19] MEDS: APIXABAN 5 MG TABLET PO (09:15)
[2020-08-19] MEDS: MULTIVITAMINS THERAPEUTIC TAB (*BKC) 1 TABLET PO (09:16)
[2020-08-19] MEDS: FERROUS SULFATE 324 MG TABLET PO (09:16)
[2020-08-19] MEDS: SACCHAROMYCES BOULARDII 250 MG CAPSULE PO ×2 (09:16→17:34)
[2020-08-19] MEDS: CHOLECALCIFEROL 1,000 UNITS TABLET 1000 UNITS PO (09:17)
[2020-08-19] MEDS: MAGNESIUM OXIDE 400 MG TABLET PO (09:17)
[2020-08-19] MEDS: SPIRONOLACTONE 25 MG TABLET PO (09:17)
[2020-08-19] MEDS: POTASSIUM CHLORIDE 20 MEQ PACKET (FOR LIQUID) 40 MEQ PO ×2 (09:18→17:34)
--- NOTE | 2020-08-19 10:44 | PM.PNPUL ---
Progress Note: A&P Assessment and Plan (1) Acute and chronic respiratory failure with hypercapnia: Code(s): J96.22 - Acute and chronic respiratory failure with hypercapnia Status: Acute Assessment and Plan: - continue BIPAP 12/04 with backup rate of 16, titrate FiO2 for sats 90-93% - Will discontinue Lyrica as this may still be contributing to daytime sleepiness although much less than Gabapentin - She has [place] ordered Q12h but only taking it about once a day. - continue with current dose of diamox - replace KCL aggressively while on diamox (2) Asthma: Qualifiers: Asthma severity: unspecified severity Asthma persistence: persistent Asthma complication type: uncomplicated Qualified Code(s): J45.909 - Unspecified asthma, uncomplicated Code(s): J45.909 - Unspecified asthma, uncomplicated Status: Acute (3) Obstructive sleep apnea: Code(s): G47.33 - Obstructive sleep apnea (adult) (pediatric) Status: Acute Subjective Date/time seen: 08/19/20 10:44 Interval history: Still very lethargic during the day. I recommended that she wear her BIPAP when she's napping during the day. Review of Systems Review of Systems: All systems reviewed & are unremarkable except as noted in HPI and below Exam Const: General: no acute distress Eyes: General: appearance normal, both eyes and all related structures Neck: Neck: supple Resp: Auscultation: clear to auscultation bilaterally and diminished lung sounds Cardio: Rate: regular rate Rhythm: regular rhythm Heart sounds: no gallops and no murmurs GI: Inspection: distended Neuro: Other: alert and responsive, answers all questions appropriately Extrem: General: normal to inspection, normal exam except as noted and pedal edema (1+ both ankles) bilaterally Psych: Mental Status: mental status grossly normal Objective Data Vital Signs Vital Signs: Vital Signs - 24 hr 08/18/20 13:49 08/18/20 13:55 08/18/20 13:57 Temperature Pulse Rate 77 77 78 Respiratory Rate 18 18 16 Blood Pressure Pulse Oximetry 98 08/18/20 14:00 08/18/20 20:00 08/18/20 20:42 Temperature 36.3 C L 36.6 C Pulse Rate 68 69 68 Respiratory Rate 16 16 Blood Pressure 126/72 112/70 Pulse Oximetry 100 100 08/18/20 21:30 08/19/20 02:58 08/19/20 03:07 Temperature Pulse Rate 64 58 L 61 Respiratory Rate 18 18 18 Blood Pressure Pulse Oximetry 96 91 08/19/20 04:10 08/19/20 08:12 08/19/20 08:13 Temperature 36.3 C L Pulse Rate 70 69 Respiratory Rate 16 20 Blood Pressure 115/55 L Pulse Oximetry 96 93 08/19/20 08:21 08/19/20 09:15 Temperature Pulse Rate 70 72 Respiratory Rate 20 Blood Pressure Pulse Oximetry Intake/Output Intake/Output: Intake & Output 08/16/20 08/17/20 08/18/20 08/19/20 23:59 23:59 23:59 23:59 Intake Total 1380 4440 1660 Output Total 1225 1700 500 Balance -1225 -320 3940 1660 Meds/Results Medications: Active Medications Generic Name Dose Route Start Last Admin Trade Name Freq PRN Reason Stop Dose Admin Hydrocodone Bitart/Acetaminophen 1 tab 08/12/20 09:36 08/18/20 13:36 [place] 5-325 Mg PO 1 tab Q12HR PRN Administration Pain Rated 4-6 Acetazolamide 250 mg 08/18/20 09:00 08/19/20 09:14 Diamox Tab PO 250 mg QAM DEWAYNE Administration Acetazolamide 250 mg 08/17/20 21:00 08/19/20 09:20 Diamox Tab PO 250 mg Q12HR DEWAYNE Administration Albuterol 2.5 mg 08/10/20 02:00 08/19/20 08:11 Albuterol Sulf Neb 2.5mg/0.5ml INHALATION 2.5 mg Q6HRT DEWAYNE Administration Alteplase, Recombinant 2 mg 08/08/20 11:39 08/17/20 05:26 Cathflo Activase IV PUSH 2 mg ONCE PRN Administration Line Occlusion Apixaban 5 mg 08/09/20 09:00 08/19/20 09:15 Eliquis PO 5 mg DAILY DEWAYNE Administration Atorvastatin Calcium 10 mg 08/09/20 09:00 08/19/20 09:15 Lipitor PO 10 mg DAILY DEWAYNE Administration Budesonide 0.5 mg 07/23
[2020-08-19 12:00] LABS: SARS-CoV-2 RNA PCR Negative
--- NOTE | 2020-08-19 14:49 | WPDGIPROGNO ---
Progress Note: A&P Assessment and Plan (1) Ileus: Code(s): K56.7 - Ileus, unspecified Status: Resolved Assessment and Plan: abdomen less distended but clinically doing better and ileus resolved- she is having BM's, denies nausea and tolerating diet ileus is multifactorial she will be discharged today (2) Acute and chronic respiratory failure with hypercapnia: Code(s): J96.22 - Acute and chronic respiratory failure with hypercapnia Status: Acute Assessment and Plan: by pulmonary, improved, using bipap (3) Discitis thoracic region: Onset Date: ~06/2020 Code(s): M46.44 - Discitis, unspecified, thoracic region Status: Acute Assessment and Plan: she has been treated by ID (4) Chronic anemia: Code(s): D64.9 - Anemia, unspecified Status: Acute Assessment and Plan: hb low but stable, on blood thinners (5) Chronic diastolic heart failure: Code(s): I50.32 - Chronic diastolic (congestive) heart failure Status: Acute (6) Obstructive sleep apnea: Code(s): G47.33 - Obstructive sleep apnea (adult) (pediatric) Status: Acute Subjective Date/time seen: 08/19/20 14:49 Interval history: no changes, sleeping and using bipap now RN reports that tolerating diet Review of Systems Review of Systems: All systems reviewed & are unremarkable except as noted in HPI and below Exam Const: General: no acute distress Other: chronically ill appearing, no distress. Morbidly obese, lying in bed Eyes: General: appearance normal, both eyes and all related structures Neck: Neck: supple Resp: Auscultation: clear to auscultation bilaterally and diminished lung sounds Cardio: Rate: regular rate Rhythm: regular rhythm Heart sounds: no gallops and no murmurs GI: Inspection: distended GI Palp: No Tenderness to palpation present (GI) and No Guarding due to palpation present (GI) Auscultation: Hypoactive bowel sounds present Skin: General skin exam: normal color Neuro: Speech: normal speech Other: alert and responsive, answers all questions appropriately Extrem: General: normal to inspection and normal exam except as noted Psych: Mental Status: mental status grossly normal Objective Data Vital Signs Vital Signs: Vital Signs - 24 hr 08/18/20 20:00 08/18/20 20:42 08/18/20 21:30 Temperature 97.8 F Pulse Rate 69 68 64 Respiratory Rate 16 18 Blood Pressure 112/70 Pulse Oximetry 100 96 08/19/20 02:58 08/19/20 03:07 08/19/20 04:10 Temperature 97.3 F L Pulse Rate 58 L 61 70 Respiratory Rate 18 18 16 Blood Pressure 115/55 L Pulse Oximetry 91 96 08/19/20 08:12 08/19/20 08:13 08/19/20 08:21 Temperature Pulse Rate 69 70 Respiratory Rate 20 20 Blood Pressure Pulse Oximetry 93 08/19/20 09:15 08/19/20 09:20 08/19/20 13:10 Temperature Pulse Rate 72 52 L Respiratory Rate 20 21 H Blood Pressure Pulse Oximetry 93 100 Intake/Output Intake/Output: Intake & Output 08/16/20 08/17/20 08/18/20 08/19/20 23:59 23:59 23:59 23:59 Intake Total 1380 4440 1900 Output Total 1225 1700 500 500 Balance -1225 -320 3940 1400 Meds/Results Medications: Active Medications Generic Name Dose Route Start Last Admin Trade Name Freq PRN Reason Stop Dose Admin Hydrocodone Bitart/Acetaminophen 1 tab 08/12/20 09:36 08/18/20 13:36 [place] 5-325 Mg PO 1 tab Q12HR PRN Administration Pain Rated 4-6 Acetazolamide 250 mg 08/18/20 09:00 08/19/20 09:14 Diamox Tab PO 250 mg QAM DEWAYNE Administration Acetazolamide 250 mg 08/17/20 21:00 08/19/20 09:20 Diamox Tab PO 250 mg Q12HR DEWAYNE Administration Albuterol 2.5 mg 08/10/20 02:00 08/19/20 08:11 Albuterol Sulf Neb 2.5mg/0.5ml INHALATION 2.5 mg Q6HRT DEWAYNE Administration Alteplase, Recombinant 2 mg 08/08/20 11:39 08/17/20 05:26 Cathflo Activase IV PUSH 2 mg ONCE PRN Administration Line Occlusion
--- NOTE | 2020-08-19 15:28 | PM.DS ---
DS: Admitting Diagnosis Admitting Diagnosis Admitting Diagnosis: Lethargy, hypoxia. DS: Discharge Diagnosis Discharge Diagnosis (1) Acute and chronic respiratory failure with hypercapnia: Code(s): J96.22 - Acute and chronic respiratory failure with hypercapnia Status: Acute Assessment and Plan: Date of Admission 08/08/20 Date of Discharge/DOS: 08/19/20 Ms. Larkin is a 70yo F with history of multiple comorbidities to include morbid obesity, chronic respiratory failure, obesity hypoventilation syndrome and asthma, obstructive sleep apnea, chronic diastolic heart failure, paroxysmal atrial fibrillation who presented to the ED from the nursing facility for evaluation of lethargy and hypoxia. She has had multiple recent hospital admissions this summer for treatment of acute on chronic respiratory failure, bacteremia, T4 discitis/osteomyelitis. Morning of arrival, she was found to be lethargic at the senior living with reported O2 saturations around 65%. ABG on arrival again demonstrated chronic respiratory failure with hypoxia and hypercapnia. She was placed on continuous BiPAP and showed improvement in her mental status. She had PICC line from previous admission through which she had been receiving IV antibiotics for bacteremia and T4 discitis through 08/02/20. She was noted to have catheter associated UTI with pseudomonas here, for which she was initially treated with IV imipenem and gentamicin. She was again seen by Dr Pierce here who recommended she could stay off IV antibiotics and recommended oral Keflex x 5 months. She was evaluated by GI for ileus. She was treated conservatively with NG decompression. NG was removed, diet was slowly advanced and she was having regular bowel movements prior to discharge. She was evaluated by pulmonology. She will continue to use Trilogy at night and with naps at the senior living. Overall, she was improved with the therapy outlined above. She was hemodynamically stable for discharge 08/19/20 to be seen by PCP within 1 week. (2) Chronic diastolic heart failure: Code(s): I50.32 - Chronic diastolic (congestive) heart failure Status: Acute (3) Ileus: Code(s): K56.7 - Ileus, unspecified Status: Resolved (4) Discitis thoracic region: Onset Date: ~06/2020 Code(s): M46.44 - Discitis, unspecified, thoracic region Status: Acute (5) Chronic anemia: Code(s): D64.9 - Anemia, unspecified Status: Acute (6) Obstructive sleep apnea: Code(s): G47.33 - Obstructive sleep apnea (adult) (pediatric) Status: Acute DS: Summary Time Spent with Patient Time attestation: Total time spent providing and/or coordinating discharge services: 45 minutes Exam Narrative: Exam Narrative: General: Chronically ill-appearing morbidly obese female resting comfortably in bed in no acute respiratory distress. HEENT: Normocephalic, EOMI, oral mucosa moist. Cardiovascular: Rate and rhythm are regular. Respiratory: Breath sounds distant ALICIA due to body habitus. Non-labored breathing. Abdomen: Soft, non-tender, non-distended, bowel sounds present. Extremities: Peripheral pulses intact. Trace ALICIA lower extremity edema. Neuro: No focal neurological deficits. Speech is clear. DS: Data Data Completed and Pending Labs on day of discharge: Last Vital Signs Temp 96.3 F L 08/19/20 15:36 Pulse 64 08/19/20 15:36 Resp 18 08/19/20 15:36 BP 105/58 L 08/19/20 15:36 Pulse Ox 100 08/19/20 15:36 ITS Impressions Chest X-Ray 08/08/20 10:52 Impression: 1: Moderate cardiomegaly with interstitial edema. 2: Small pleural effusions. Chest CT 08/10/20 15:12 IMPRESSION: 1. Burst fractures at T5, T6, T7 with bone loss, consistent with discitis and osteomyelitis. 2. Small pleural effusions. 3. Gaseous distention of the colon, consistent with adynamic ileus. Abdomen X-Ray 08/13/20 13:00 Impression: 1: Persistently gas-filled dis
[2020-08-19 15:50] LABS: Anion Gap 5 mmol/L (8-16); Blood Urea Nitrogen 7 mg/dL (7-17); Calcium 9.1 mg/dL (8.4-10.2); Carbon Dioxide 37 mmol/L (22-30); Chloride 97 mmol/L (98-107); Estimated CRCL calculation 71 ml/min; Estimated Glomerular Filt Rate > 60; Glucose 140 mg/dL (65-105); Potassium 3.7 mmol/L (3.4-5.0); Sodium 139 mmol/L (137-145)
== END 2020-08-19 19:40 | DRG 189 ==
LOC: ANHED 11:42 → ANHIMU 15:58 → ANH3MED 08-10 14:39
PROVIDERS: Family Medicine; Internal Medicine; Internal Medicine Critical Care Medicine; Internal Medicine Infectious Disease; Physician Assistant; Admitting Provider Family Medicine; Emergency Provider Emergency Medicine; PCP Family Medicine; Visit Provider Physician Assistant
DX: J96.21 Acute and chronic respiratory failure with hypoxia (principal); I50.33 Acute on chronic diastolic (congestive) heart failure; T83.511A Infection and inflammatory reaction due to indwelling urethral catheter, initial encounter; N39.0 Urinary tract infection, site not specified; E66.2 Morbid (severe) obesity with alveolar hypoventilation; Z68.42 Body mass index [BMI] 45.0-49.9, adult; K56.7 Ileus, unspecified; I48.20 Chronic atrial fibrillation, unspecified; M46.24 Osteomyelitis of vertebra, thoracic region; B96.5 Pseudomonas (aeruginosa) (mallei) (pseudomallei) as the cause of diseases classified elsewhere; Z23 Encounter for immunization; Z20.828 Contact with and (suspected) exposure to other viral communicable diseases; M46.44 Discitis, unspecified, thoracic region; J96.22 Acute and chronic respiratory failure with hypercapnia; D64.9 Anemia, unspecified; I11.0 Hypertensive heart disease with heart failure; E87.6 Hypokalemia; G47.33 Obstructive sleep apnea (adult) (pediatric); J44.9 Chronic obstructive pulmonary disease, unspecified; I87.2 Venous insufficiency (chronic) (peripheral); Z86.718 Personal history of other venous thrombosis and embolism; Z90.710 Acquired absence of both cervix and uterus; Z87.891 Personal history of nicotine dependence
CPT/HCPCS: 36415; 36600; 51701; 71045; 71250; 74018; 80048; 80053; 81001; 82375; 82805; 83050; 83735; 83880; 84132; 84443; 85025; 85610; 85730; 87077; 87086; 87088; 87186; 87635; 90471; 90686; 93005; 94002; 94003; 94640; 96365; 97161; 99291; A9270; C8929; C9803; G0008; J0131; J0690; J0696; J0743; J1580; J1940; J2997; J3480; J7030; J7120; Q9957; U0003

== ENCOUNTER 2021-05-11 04:41 | Inpatient (IN) | payer MEDICARE, MEDICAID, SELFPAY ==
[2021-05-11] VITALS (21 sets, daily range): BP systolic 114–141; BP diastolic 54–100; PULSE 99–121; RESP 18–30; TEMP 36–36.8; O2SAT 9–98; BMI 50.5
--- NOTE | ~2021-05-11 | XR_ITS ---
XR abdomen obstructive series 05/13/2021 06:06 Indication: Follow-up ileus. Procedure: Supine and upright views of the abdomen Comparison: Comparison to multiple prior studies sequentially, with oldest reviewed study dated 08/14. Findings: Decreased distention of the transverse colon with gas. No significant small bowel dilation. Small pleural effusions. Bibasilar atelectasis. Cardiomegaly. Vascular stent in the right iliac loca tion. Impression: 1: Decreased distention of transverse colon, possibly resolving ileus. 2: Small pleural effusions with underlying compressive atelectasis. Reviewed, dictated and finalized at location D. Impression: 1: Decreased distention of transverse colon, possibly resolving ileus. 2: Small pleural effusions with underlying compressive atelectasis.
--- NOTE | ~2021-05-11 | XR_ITS ---
XR abdomen obstructive series 05/12/2021 14:22 Indication: Ileus. Procedure: KUB Comparison: 08/17/2020 Findings: There is persistent distention of the transverse colon with decreased overall volume of gas in the abdomen. Vascular stent present in the right pelvis. Cardiomegaly. Possible small effusion on the right. Impression: 1: Persistent colonic distention, consistent with ileus. Reviewed, dictated and finalized at location B. Impression: 1: Persistent colonic distention, consistent with ileus.
--- NOTE | ~2021-05-11 | CT_ITS ---
EXAMINATION: CT abdomen pelvis w con INDICATION: Vomiting, history of bowel obstruction TECHNIQUE: Computed tomographic images of the abdomen and pelvis were obtained after the administrati on of 100 cc of Omnipaque 350 intravenous contrast. The dose-length product (DLP) was 1508.32 mGy-cm. Automated exposure control and iterative reconstruction technique were employed. COMPARISON: 07/20/2020 FINDINGS: Minimal dependent atelectasis is present in the lung bases. Cardiomegaly is noted. Punctate calcifications in otherwise normal appearing liver and spleen likely represent healed granulomatous disease. The pancreas, gallbladder, and adrenal glands are normal. Cysts of the kidneys measure up to 5 cm on the left. There is a 3 mm nonobstructing stone of the right kidney. There is calcified ather osclerosis of the aorta and many of the other arteries. No pathologically enlarged abdominal or pelvi c lymph nodes are identified. An endoluminal stent is noted in the right common iliac vein. There is mild distention of the transverse colon without focal transition point identified. There is no free i ntraperitoneal gas. A chronic compression fracture of the L4 vertebral body is noted. IMPRESSION: 1. Distended transverse colon without focal transition point identified, consistent with adynamic ile us. Reviewed, dictated and finalized at location A. IMPRESSION: 1. Distended transverse colon without focal transition point identified, consis tent with adynamic ileus.
[2021-05-11 05:49] LABS: Basophils Percent Auto 0.2 % (0.2-1.2); Eosinophils Absolute Auto 0.3 K/mm3 (0-0.3); Hematocrit 31.1 % (37.0-47.0); Immature Granulocyte Absolute 0.03 K/mm3 (0.00-0.031); Immature Granulocyte Percent A 0.4 % (0-0.5); Lymphocytes Percent Auto 9.7 % (18.3-44.2); Mean Corpuscular HGB Conc 28.9 g/dl (32-36); Mean Corpuscular Hemoglobin 30.6 pg (26-34); Mean Corpuscular Volume 105.8 fl (80-100); Mean Platelet Volume 9.8 fl (7.4-10.4); Monocytes Percent Auto 11.8 % (2.6-8.5); Neutrophils Absolute Auto 6.2 K/mm3 (1.3-6.7); Neutrophils Percent Auto 74.9 % (45.5-73.1); Platelet Count Result 210 k/mm3 (150-375); Red Blood Count 2.94 M/mm3 (4.2-5.4); Red Cell Distribution Width 14.3 % (11.5-14.5); White Blood Count 8.2 K/mm3 (4.5-10.0)
[2021-05-11 05:52] LABS: Hypochromasia 1+ (NORMAL); Platelet Estimate Adequate (Adequate)
--- NOTE | 2021-05-11 05:54 | ED.NAVMDI ---
HPI - Nausea/Vomiting/Diarrhea General Chief complaint: Nausea/Vomiting/Diarrhea <Ariel Ye MD - Last Filed: 05/12/21 06:53> Stated complaint: abd pain n/v <Ariel Ye MD - Last Filed: 05/12/21 06:53> Time Seen by Provider: 05/11/21 04:48 <Ariel Ye MD - Last Filed: 05/12/21 06:53> History of Present Illness HPI Narrative: Patient is a 70-year-old female who presents ER with nausea and vomiting. Symptoms began early in the evening with a lot of cramping. Multiple episodes of emesis. Patient has history of ileus and so an x-ray was performed that showed large colonic volvulus. No fevers or chills or sweats. Denies abdominal bloating but has some cramps. She reports eating some ham and beans yesterday. She also had some Tums and Zofran that improved her vomiting. Patient reports she has not been passing gas and is unsure of her last bowel movement. <Ariel Ye MD - Last Filed: 05/12/21 06:53> Related Data Home medications: Home Medications Medication Instructions Recorded Confirmed Eliquis 5 mg PO BID 02/12/20 05/11/21 cholecalciferol (vitamin D3) 25 mcg PO DAILY 02/12/20 05/11/21 ferrous sulfate 325 mg PO DAILY 02/12/20 05/11/21 albuterol sulfate [Ventolin HFA] 2 puff INHALATION Q6H PRN 03/28/20 05/11/21 atorvastatin 10 mg PO QPM 03/28/20 05/11/21 gabapentin 300 mg PO HS 06/10/20 05/11/21 metoprolol tartrate 25 mg PO Q12H 06/10/20 05/11/21 sodium chloride [[place] Nasal] 1 spray INTRANASAL BID PRN 07/20/20 05/11/[address] [place] Nasal 0.65 % INHALATION PRN PRN 08/08/20 05/11/21 furosemide [Lasix] 40 mg PO BID 08/08/20 05/11/21 potassium chloride 20 meq PO BID 08/08/20 05/11/21 acetaminophen 500 mg PO TID 05/11/21 05/11/21 cyclobenzaprine 5 mg PO HS PRN 05/11/21 05/11/21 fluticasone furoate-vilanterol 1 inh INHALATION DAILY 05/11/21 05/11/21 [Breo Ellipta] lisinopril 10 mg PO DAILY 05/11/21 05/11/21 promethazine 25 mg PO Q6H PRN 05/11/21 05/11/21 <Ariel Ye MD - Last Filed: 05/12/21 06:53> Allergies/Adverse reactions: Allergies Allergy/AdvReac Type Severity Reaction Status Date / Time adhesive tape AdvReac Itching Verified 05/11/21 11:09 levofloxacin [From Levaquin] AdvReac Rash Verified 05/11/21 11:09 TaperDex Allergy Intermediate Hives Uncoded 05/11/21 11:09 <Ariel Ye MD - Last Filed: 05/12/21 06:53> Review of Systems Review of Systems: All systems reviewed & are unremarkable except as noted in HPI and below <Ariel Ye MD - Last Filed: 05/12/21 06:53> Constitutional: Constitutional: Denies chills and Denies fever(s) <Ariel Ye MD - Last Filed: 05/12/21 06:53> Cardiovascular: Cardiovascular: Denies chest pain and Denies radiating jaw, neck or arm pain <Ariel Ye MD - Last Filed: 05/12/21 06:53> Respiratory: Respiratory: Denies cough and Denies dyspnea <Ariel Ye MD - Last Filed: 05/12/21 06:53> Gastrointestinal: Gastrointestinal: Denies abdominal pain, Reports bloating, Denies constipation, Denies diarrhea, Reports nausea and Reports vomiting <Ariel Ye MD - Last Filed: 05/12/21 06:53> FORMERLY [facility], [facility] Past Medical History Medical History: Medical History (Updated 05/12/21 @ 06:53 by Ariel Ye MD) Asthma exacerbation in COPD Atrial fibrillation Chronic anemia Chronic respiratory failure with hypoxia and hypercapnia Chronic venous stasis dermatitis COPD (chronic obstructive pulmonary disease) Diastolic congestive heart failure Echocardiogram in February 2020 showed mild enlargement of the left ventricle, normal left ventricular function with an ejection fraction of 60 to 65%, mild LV wall thickness, and bilateral atrial enlargement. Discitis thoracic region (~06/2020) T4 diskitis/osteomyelitis. Discitis thoracic region (~06/2020) T4 diskitis/osteomyelitis. Discitis thoracic region (~06/2020) T4 diskitis/osteomyelitis. DVT (deep venous thrombosis) on Eliquis Essential hyp
[2021-05-11 06:05] LABS: Alanine Aminotransferase 33 U/L (4-35); Alkaline Phosphatase 59 U/L (38-126); Anion Gap 8 mmol/L (8-16); Aspartate Amino Transferase 37 U/L (14-36); Bilirubin,Total 0.5 mg/dL (0.2-1.3); Blood Urea Nitrogen 61 mg/dL (7-17); Calcium 9.7 mg/dL (8.4-10.2); Carbon Dioxide 27 mmol/L (22-30); Chloride 109 mmol/L (98-107); Estimated CRCL calculation 48 ml/min; Estimated Glomerular Filt Rate 41; Glucose 97 mg/dL (65-105); Lipase 109 U/L (23-300); Sodium 144 mmol/L (137-145)
[2021-05-11] MEDS: INSULIN HUMAN REGULAR (*BKC) 100 UNITS/ML IV PUSH (06:43)
[2021-05-11] MEDS: SODIUM CHLORIDE 0.9% IV 1,000 ML 999 ML IV CONT (06:44)
[2021-05-11] MEDS: DEXTROSE 50% 25 GM/50 ML SYRINGE IV PUSH (06:44)
--- NOTE | 2021-05-11 07:56 | ECG_ITS ---
Measurements Intervals [place] Rate: 98 P: [place]: 0 QRS: -14 QRSD: 106 T: 32 QT: 353 QTc: 452 Interpretive Statements ATRIAL FIBRILLATION BORDERLINE ST ABNORMALITY- HIGH LATERAL LEADS BASELINE ARTIFACT- I, II, III, AVR, AVF, V2-V6 ABNORMAL ECG Electronically Signed On 05-11-2021 8:23:23 CDT by Mike Carrasquillo D.O.
[2021-05-11] MEDS: SODIUM POLYSTYRENE SULFONONATE 15 GM/60 ML BTL PO (08:11)
[2021-05-11 09:04] LABS: Add Urine Microscopic? YES; Appearance Urine Clear (Clear); Bacteria Urine Trace /hpf; Bilirubin Urine Negative (Negative); Blood Urine 1+ (Negative); Color Urine Yellow (Yellow); Glucose Urine UA Negative (Negative); Ketones Urine Negative (Negative); Leukocyte Esterase Ur 2+ LEU/UL (Negative); Nitrate Urine Positive (Negative); Protein Urine Negative (Negative); Specific Grav Ur 1.023 (1.001-1.035); Squamous Epithelial Cell Urine Few /hpf (Few); Urobilinogen Urine Negative mg/dL (<2.0); WBC Urine 21-30 /hpf
--- NOTE | 2021-05-11 10:05 | ADMGEN ---
This patient, Trina Larkin, was admitted to 2 Medical Room 259-. Patient/family oriented to hospital policies and general routines including ID bracelet, bed and alarms, visiting hours, pain management, procedures, bathroom and other care routines, personal items, smoking policy, room service/diet, and visiting hours. Information on how to activate the Rapid Response Team has been discussed. Patient/Family are encouraged to report perceived risks to care and to ask questions if they do not understand what they are told or what they should do.
[2021-05-11] MEDS: SODIUM CHLORIDE 0.9% IV 1,000 ML 125 ML IV CONT ×2 (11:37→20:40)
--- NOTE | 2021-05-11 14:11 | PM.IMHP ---
H&P: HPI History of Present Illness Date/Time: 05/11/21 14:11 this is a 70-year-old female patient who resides at [facility]. The patient has a history of having an ileus in the past.The patient presented to the emergency room from the correction with symptoms of nausea vomiting. She denies any fever chills. The patient had multiple episodes of vomiting. The patient had an abdominal x-ray yesterday from an outside facility [employer] x-ray which was read as significant colonic dilatation likely reflecting ileus. Which shows distended transverse colon without focal transition point identified consistent with adynamic ileus. The patient was given IV fluids. Patient's H&H is 9.0 in 31.1. Potassium was found to be 6.0 the patient was given a concoction of Kayexalate, D50 with IV insulin. Patient is currently having loose stools and I do hear some hypoactive bowel sounds. The patient has no abdominal tenderness. Patient is being admitted for observation status on the date of service of 05/11/2021. Chief Complaint: Nausea vomiting Review of Systems Review of Systems: All systems reviewed & are unremarkable except as noted in HPI and below Constitutional: Constitutional: Reports as per HPI and Reports no additional constitutional complaints Eyes: Eyes: Reports as per HPI and Reports no additional eye complaints ENT: Reports system reviewed and no additional complaints, except as documented and Reports Normal hearing present Cardiovascular: Cardiovascular: Reports no additional cardiovascular complaints Respiratory: Respiratory: Reports no additional respiratory complaints and Reports no additional respiratory complaints Gastrointestinal: Gastrointestinal: Reports as per HPI and Reports no additional gastrointestinal complaints Musculoskeletal: Musculoskeletal: Reports no additional musculoskeletal complaints Integumentary/Breasts: Skin/Breast: Reports system reviewed and no additional complaints, except as docu and Reports as per HPI Neurologic: Reports system reviewed and no additional complaints, except as documented, Reports as per HPI and Reports Normal hearing present Psychiatric: Psychiatric: Reports no additional psychiatric complaints and Reports as per HPI Endocrine: Endocrine: Reports no additional endocrine complaints Hematologic/Lymphatic: Hematologic/Lymphatic: Reports no additional hematologic/lymphatic complaints Allergic/Immunologic: Allergic/Immunologic: Reports no additional allergic/immunologic complaints [facility] Past Medical History Medical History (Updated 05/11/21 @ 14:43 by Luz Thomas NP) Asthma exacerbation in COPD Atrial fibrillation Chronic anemia Chronic respiratory failure with hypoxia and hypercapnia Chronic venous stasis dermatitis COPD (chronic obstructive pulmonary disease) Diastolic congestive heart failure Echocardiogram in February 2020 showed mild enlargement of the left ventricle, normal left ventricular function with an ejection fraction of 60 to 65%, mild LV wall thickness, and bilateral atrial enlargement. Discitis thoracic region (~06/2020) T4 diskitis/osteomyelitis. Discitis thoracic region (~06/2020) T4 diskitis/osteomyelitis. Discitis thoracic region (~06/2020) T4 diskitis/osteomyelitis. DVT (deep venous thrombosis) on Eliquis Essential hypertension Hypertension Ileus Left humeral fracture Morbid obesity Obesity hypoventilation syndrome Obstructive sleep apnea Paroxysmal atrial fibrillation Sepsis due to methicillin susceptible Staphylococcus aureus (MSSA) with acute hypercapnic respiratory failure Stable burst fracture of t5-T6 vertebra, initial encounter for closed fracture Staphylococcus aureus bacteremia (~03/2020) Blood cultures positive for oxacillin sensitive Staph aureus in March, May, and June 2020. Venous stasis dermatitis Surgical History Surgical History H/O hernia repair Ventral
[2021-05-11] MEDS: FUROSEMIDE 40 MG TABLET PO (16:23)
[2021-05-11] MEDS: APIXABAN 5 MG TABLET PO (16:24)
[2021-05-11] MEDS: ACETAMINOPHEN 500 MG TABLET PO (16:26)
[2021-05-11] MEDS: ONDANSETRON INJ 4 MG/2 ML VIAL IV PUSH (16:27)
[2021-05-11] MEDS: ATORVASTATIN 10 MG TABLET PO (17:57)
[2021-05-11 18:35] LABS: Anion Gap 7 mmol/L (8-16); Blood Urea Nitrogen 44 mg/dL (7-17); Calcium 9.1 mg/dL (8.4-10.2); Carbon Dioxide 25 mmol/L (22-30); Chloride 110 mmol/L (98-107); Estimated CRCL calculation 60 ml/min; Estimated Glomerular Filt Rate 55; Glucose 104 mg/dL (65-105); Potassium 4.8 mmol/L (3.4-5.0); Sodium 142 mmol/L (137-145)
[2021-05-11] MEDS: METOPROLOL TARTRATE 25 MG TABLET PO (20:39)
[2021-05-11] MEDS: GABAPENTIN 300 MG CAPSULE PO (20:39)
[2021-05-11] MEDS: TOLNAFTATE 1% POWDER 45 GM BTL 1 APPLIC TOPICAL (20:40)
[2021-05-12] VITALS (15 sets, daily range): BP systolic 101–128; BP diastolic 59–83; PULSE 74–104; RESP 16–22; TEMP 35.9–36.7; O2SAT 90–100
[2021-05-12] MEDS: SODIUM CHLORIDE 0.9% IV 1,000 ML 125 ML IV CONT ×2 (04:45→12:42)
[2021-05-12 05:39] LABS: Lactic Acid Reflex 0.7 mmol/L (0.7-2.1)
[2021-05-12 05:52] LABS: Anion Gap 6 mmol/L (8-16); Blood Urea Nitrogen 37 mg/dL (7-17); Calcium 9.1 mg/dL (8.4-10.2); Carbon Dioxide 24 mmol/L (22-30); Chloride 110 mmol/L (98-107); Estimated CRCL calculation 44 ml/min; Estimated Glomerular Filt Rate 37; Glucose 102 mg/dL (65-105); Magnesium 1.8 mg/dL (1.6-2.3); Potassium 4.9 mmol/L (3.4-5.0); Sodium 140 mmol/L (137-145)
[2021-05-12 06:22] LABS: Thyroid Stimulating Hormone Reflex 0.789 uIU/mL (0.465-4.68)
[2021-05-12 07:51] LABS: Glucose Point of Care 89 mg/dl (65-105)
[2021-05-12] MEDS: FERROUS SULFATE 324 MG TABLET PO (09:19)
[2021-05-12] MEDS: APIXABAN 5 MG TABLET PO ×2 (09:19→17:44)
[2021-05-12] MEDS: CHOLECALCIFEROL 1,000 UNITS TABLET 1000 UNITS PO (09:19)
[2021-05-12] MEDS: FUROSEMIDE 40 MG TABLET PO ×2 (09:19→17:44)
[2021-05-12] MEDS: ACETAMINOPHEN 500 MG TABLET PO ×3 (09:19→17:44)
[2021-05-12] MEDS: TOLNAFTATE 1% POWDER 45 GM BTL 1 APPLIC TOPICAL ×2 (09:20→20:13)
[2021-05-12] MEDS: METOPROLOL TARTRATE 25 MG TABLET PO ×2 (09:20→20:11)
[2021-05-12 11:57] LABS: Glucose Point of Care 164 mg/dl (65-105)
--- NOTE | 2021-05-12 16:36 | PM.IMPN ---
Progress Note: A&P Assessment and Plan (1) Ileus: Code(s): K56.7 - Ileus, unspecified Status: Resolved Assessment and Plan: Improving symptomatic we although the x-ray is showing persistent ileus -patient has been eating and drinking and has had bowel movements with gas -continue diet at this time (2) Atrial fibrillation: Qualifiers: Atrial fibrillation type: unspecified chronic Qualified Code(s): I48.20 - Chronic atrial fibrillation, unspecified Code(s): I48.91 - Unspecified atrial fibrillation Status: Chronic Assessment and Plan: Rate controlled -continue quits and metoprolol (3) Congestive heart failure: Qualifiers: Heart failure chronicity: acute on chronic Heart failure type: diastolic Qualified Code(s): I50.33 - Acute on chronic diastolic (congestive) heart failure Code(s): I50.9 - Heart failure, unspecified Status: Chronic Assessment and Plan: Appears euvolemic -continue Lasix and metoprolol (4) Hyperkalemia: Code(s): E87.5 - Hyperkalemia Status: Acute Assessment and Plan: Resolved -patient was given Kayexalate in the setting of ileus. She has not had any bowel issues today -will hold lisinopril -monitor daily labs (5) COPD (chronic obstructive pulmonary disease): Code(s): J44.9 - Chronic obstructive pulmonary disease, unspecified Status: Acute Assessment and Plan: Chronic, no acute symptoms -Continue withAlbuterol and budesonide. (6) Morbid obesity: Code(s): E66.01 - Morbid (severe) obesity due to excess calories Status: Acute Assessment and Plan: Chronic (7) Venous stasis dermatitis: Qualifiers: Laterality: right Qualified Code(s): I87.2 - Venous insufficiency (chronic) (peripheral) Code(s): I87.2 - Venous insufficiency (chronic) (peripheral) Status: Acute Assessment and Plan: Chronic (8) Hypertension: Qualifiers: Hypertension type: essential hypertension Qualified Code(s): I10 - Essential (primary) hypertension Code(s): I10 - Essential (primary) hypertension Status: Chronic Assessment and Plan: Last blood pressure 101/65 -continue metoprolol (9) DVT (deep venous thrombosis): Qualifiers: Affected thrombotic vein of extremity: unspecified vein of extremity Chronicity: chronic DVT location: lower extremity Laterality: unspecified laterality Qualified Code(s): I82.509 - 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 (10) UTI (urinary tract infection): Code(s): N39.0 - Urinary tract infection, site not specified Status: Acute Assessment and Plan: Urine culture growing gram-negative bacilli and patient is having frequency -will continue ceftriaxone -patient has a history of Pseudomonas infection but is allergic to Levaquin. I do not suspect significant infection at this time, continue ceftriaxone. If it comes back Pseudomonas will adjust medications as necessary Time Spent With Patient Time with patient: 25 - 35 minutes Subjective Date/time seen: 05/12/21 16:36 Interval history: Pt is a 70-year-old female here for ileus. Patient was seen today and states her abdominal pain is much better. She is no longer having any nausea or vomiting and was able to eat soup and toast for lunch. She had diarrhea in the past but none since I talked to her. She is passing gas. She denies dizziness, lightheadedness, chest pain, shortness of breath, fevers or chills. She has no dysuria but is having frequency. She says she has been bed-bound for about a year and uses her wheelchair at the [facility]
[2021-05-12 17:16] LABS: Glucose Point of Care 107 mg/dl (65-105)
[2021-05-12] MEDS: ATORVASTATIN 10 MG TABLET PO (17:44)
[2021-05-12] MEDS: GABAPENTIN 300 MG CAPSULE PO (20:11)
[2021-05-12 20:35] LABS: Glucose Point of Care 143 mg/dl (65-105)
[2021-05-12] MEDS: SODIUM CHLORIDE 0.9% IV 1,000 ML 85 ML IV CONT (22:29)
[2021-05-13] VITALS (12 sets, daily range): BP systolic 114–123; BP diastolic 53–79; PULSE 65–93; RESP 18–20; TEMP 36.2–37.2; O2SAT 93–100
[2021-05-13 05:40] LABS: Hematocrit 28.5 % (37.0-47.0); Hemoglobin 8.4 g/dL (12.0-15.0); Mean Corpuscular HGB Conc 29.5 g/dl (32-36); Mean Corpuscular Hemoglobin 31.2 pg (26-34); Mean Corpuscular Volume 105.9 fl (80-100); Mean Platelet Volume 10.4 fl (7.4-10.4); Platelet Count Result 185 k/mm3 (150-375); Red Blood Count 2.69 M/mm3 (4.2-5.4); Red Cell Distribution Width 14.3 % (11.5-14.5); White Blood Count 6.5 K/mm3 (4.5-10.0)
[2021-05-13 05:57] LABS: Anion Gap 8 mmol/L (8-16); Blood Urea Nitrogen 33 mg/dL (7-17); Calcium 8.8 mg/dL (8.4-10.2); Carbon Dioxide 22 mmol/L (22-30); Chloride 110 mmol/L (98-107); Estimated CRCL calculation 55 ml/min; Estimated Glomerular Filt Rate 49; Glucose 99 mg/dL (65-105); Potassium 4.4 mmol/L (3.4-5.0); Sodium 140 mmol/L (137-145)
[2021-05-13 08:03] LABS: Glucose Point of Care 86 mg/dl (65-105)
[2021-05-13] MEDS: ACETAMINOPHEN 500 MG TABLET PO ×3 (08:54→17:59)
[2021-05-13] MEDS: APIXABAN 5 MG TABLET PO ×2 (08:54→17:59)
[2021-05-13] MEDS: METOPROLOL TARTRATE 25 MG TABLET PO ×2 (08:54→20:23)
[2021-05-13] MEDS: FERROUS SULFATE 324 MG TABLET PO (08:54)
[2021-05-13] MEDS: CHOLECALCIFEROL 1,000 UNITS TABLET 1000 UNITS PO (08:54)
[2021-05-13] MEDS: FUROSEMIDE 40 MG TABLET PO ×2 (08:54→17:59)
[2021-05-13] MEDS: TOLNAFTATE 1% POWDER 45 GM BTL 1 APPLIC TOPICAL ×2 (08:54→20:24)
[2021-05-13 11:53] LABS: Glucose Point of Care 107 mg/dl (65-105)
--- NOTE | 2021-05-13 16:23 | PM.IMCN ---
Assessment and Plan Assessment and plan (1) Ileus: Code(s): K56.7 - Ileus, unspecified Status: Resolved Assessment and Plan: Symptomatically improving with improvement on the x-ray -patient has been eating and drinking and has had bowel movements with gas -continue diet at this time (2) Atrial fibrillation: Qualifiers: Atrial fibrillation type: unspecified chronic Qualified Code(s): I48.20 - Chronic atrial fibrillation, unspecified Code(s): I48.91 - Unspecified atrial fibrillation Status: Chronic Assessment and Plan: Rate controlled -continue Eliquis and metoprolol (3) Congestive heart failure: Qualifiers: Heart failure type: diastolic Heart failure chronicity: acute on chronic Qualified Code(s): I50.33 - Acute on chronic diastolic (congestive) heart failure Code(s): I50.9 - Heart failure, unspecified Status: Chronic Assessment and Plan: Appears euvolemic -continue Lasix and metoprolol (4) Hyperkalemia: Code(s): E87.5 - Hyperkalemia Status: Acute Assessment and Plan: Resolved -patient was given Kayexalate in the setting of ileus. She has not had any bowel issues today -will hold lisinopril -monitor daily labs (5) COPD (chronic obstructive pulmonary disease): Code(s): J44.9 - Chronic obstructive pulmonary disease, unspecified Status: Acute Assessment and Plan: Chronic, no acute symptoms -Continue withAlbuterol and budesonide. (6) Morbid obesity: Code(s): E66.01 - Morbid (severe) obesity due to excess calories Status: Acute Assessment and Plan: Chronic (7) Venous stasis dermatitis: Qualifiers: Laterality: right Qualified Code(s): I87.2 - Venous insufficiency (chronic) (peripheral) Code(s): I87.2 - Venous insufficiency (chronic) (peripheral) Status: Acute Assessment and Plan: Chronic (8) Hypertension: Qualifiers: Hypertension type: essential hypertension Qualified Code(s): I10 - Essential (primary) hypertension Code(s): I10 - Essential (primary) hypertension Status: Chronic Assessment and Plan: Last blood pressure 122/61 -continue metoprolol (9) DVT (deep venous thrombosis): Qualifiers: DVT location: lower extremity Affected thrombotic vein of extremity: unspecified vein of extremity Chronicity: chronic Laterality: unspecified laterality Qualified Code(s): I82.509 - 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 (10) UTI (urinary tract infection): Code(s): N39.0 - Urinary tract infection, site not specified Status: Acute Assessment and Plan: Urine culture growing gram-negative bacilli and patient is having frequency -will continue ceftriaxone. If she continues to have a headache with a metallic taste, may consider adjusting this tomorrow -I called the lab who states it is E coli but are waiting on sensitivities HPI Data of Consult Consult date: 05/13/21 Requesting Physician: Rosa Cardenas PA-C Primary Care Provider: Liz MirandaLizzy Consult Narrative Narrative: Trina Larkin is a 70 year old female here for ileus. Patient was seen today and her abdominal pain has improved. She has not had any nausea or vomiting but she states that she has a weird metallic taste in her mouth started this morning. She also has a frontal headache that got better with Tylenol but is worse with bright lights. She has no numbness, tingling or problems with speech. No history of seizures. She denies shortness of breath, chest pain, diarrhea or leg swelling. REPLACED BY [facility] Past Medical History M
[2021-05-13] MEDS: ATORVASTATIN 10 MG TABLET PO (17:59)
[2021-05-13 18:13] LABS: Glucose Point of Care 82 mg/dl (65-105)
[2021-05-13] MEDS: ACETAMINOPHEN 325 MG TABLET 650 MG PO (20:22)
[2021-05-13] MEDS: GABAPENTIN 300 MG CAPSULE PO (20:23)
[2021-05-13 20:59] LABS: Glucose Point of Care 143 mg/dl (65-105)
[2021-05-14] VITALS: BP 119/76; PULSE 92; RESP 16; TEMP 36.2; O2SAT 98
[2021-05-14 04:00] VITALS: BP 124/79; PULSE 87; RESP 16; TEMP 36.1; O2SAT 96
[2021-05-14 05:40] LABS: Basophils Percent Auto 0.1 % (0.2-1.2); Eosinophils Absolute Auto 0.3 K/mm3 (0-0.3); Eosinophils Percent Auto 4.1 % (0-4.4); Hematocrit 29.5 % (37.0-47.0); Hemoglobin 8.6 g/dL (12.0-15.0); Immature Granulocyte Absolute 0.04 K/mm3 (0.00-0.031); Immature Granulocyte Percent A 0.5 % (0-0.5); Lymphocytes Absolute Auto 1.29 K/mm3 (0.9-3.2); Lymphocytes Percent Auto 17.2 % (18.3-44.2); Mean Corpuscular HGB Conc 29.2 g/dl (32-36); Mean Corpuscular Hemoglobin 30.6 pg (26-34); Monocytes Absolute Auto 0.9 K/mm3 (0.1-0.6); Monocytes Percent Auto 12.5 % (2.6-8.5); Neutrophils Absolute Auto 4.9 K/mm3 (1.3-6.7); Neutrophils Percent Auto 65.6 % (45.5-73.1); Platelet Count Result 141 k/mm3 (150-375); Red Blood Count 2.81 M/mm3 (4.2-5.4); White Blood Count 7.5 K/mm3 (4.5-10.0)
[2021-05-14 05:53] LABS: Anion Gap 8 mmol/L (8-16); Blood Urea Nitrogen 27 mg/dL (7-17); Calcium 9.1 mg/dL (8.4-10.2); Carbon Dioxide 24 mmol/L (22-30); Chloride 106 mmol/L (98-107); Estimated CRCL calculation 60 ml/min; Estimated Glomerular Filt Rate 55; Glucose 92 mg/dL (65-105); Potassium 4.9 mmol/L (3.4-5.0); Sodium 138 mmol/L (137-145)
[2021-05-14 06:54] LABS: Folic Acid 10.2 ng/mL (2.76->20)
[2021-05-14 07:41] LABS: Glucose Point of Care 81 mg/dl (65-105)
[2021-05-14 09:03] VITALS: PULSE 90
[2021-05-14] MEDS: METOPROLOL TARTRATE 25 MG TABLET PO (09:03)
[2021-05-14] MEDS: APIXABAN 5 MG TABLET PO ×2 (09:03→16:47)
[2021-05-14] MEDS: ACETAMINOPHEN 500 MG TABLET PO ×3 (09:03→16:47)
[2021-05-14] MEDS: CHOLECALCIFEROL 1,000 UNITS TABLET 1000 UNITS PO (09:04)
[2021-05-14] MEDS: FERROUS SULFATE 324 MG TABLET PO (09:05)
[2021-05-14] MEDS: FUROSEMIDE 40 MG TABLET PO ×2 (09:05→16:47)
[2021-05-14] MEDS: TOLNAFTATE 1% POWDER 45 GM BTL 1 APPLIC TOPICAL (09:05)
[2021-05-14] MEDS: AMOXICILLIN/CLAVULANATE K 500-125 MG TAB 1 TABLET PO (09:54)
[2021-05-14 10:00] VITALS: BP 129/81; PULSE 87; RESP 18; TEMP 36.6; O2SAT 98
[2021-05-14 12:15] LABS: Glucose Point of Care 127 mg/dl (65-105)
[2021-05-14 14:45] VITALS: BP 135/64; PULSE 77; RESP 17; TEMP 36.1; O2SAT 98
--- NOTE | 2021-05-14 15:11 | PM.DS ---
DS: Admitting Diagnosis Admitting Diagnosis Admitting Diagnosis: ileus DS: Discharge Diagnosis Discharge Diagnosis (1) Ileus: Code(s): K56.7 - Ileus, unspecified Status: Resolved Assessment and Plan: Resolved -patient eating and drinking and had bowel movements with gas the day of discharge (2) Atrial fibrillation: Qualifiers: Atrial fibrillation type: unspecified chronic Qualified Code(s): I48.20 - Chronic atrial fibrillation, unspecified Code(s): I48.91 - Unspecified atrial fibrillation Status: Chronic Assessment and Plan: Rate controlled -continue Eliquis and metoprolol (3) Congestive heart failure: Qualifiers: Heart failure type: diastolic Heart failure chronicity: acute on chronic Qualified Code(s): I50.33 - Acute on chronic diastolic (congestive) heart failure Code(s): I50.9 - Heart failure, unspecified Status: Chronic Assessment and Plan: Appears euvolemic -continue Lasix and metoprolol (4) Hyperkalemia: Code(s): E87.5 - Hyperkalemia Status: Acute Assessment and Plan: Resolved -restart lisinopril at d/c -I have asked the facility to recheck bmp in one week (5) COPD (chronic obstructive pulmonary disease): Code(s): J44.9 - Chronic obstructive pulmonary disease, unspecified Status: Acute Assessment and Plan: Chronic, no acute symptoms (6) Morbid obesity: Code(s): E66.01 - Morbid (severe) obesity due to excess calories Status: Acute Assessment and Plan: Chronic (7) Venous stasis dermatitis: Qualifiers: Laterality: right Qualified Code(s): I87.2 - Venous insufficiency (chronic) (peripheral) Code(s): I87.2 - Venous insufficiency (chronic) (peripheral) Status: Acute Assessment and Plan: Chronic (8) Hypertension: Qualifiers: Hypertension type: essential hypertension Qualified Code(s): I10 - Essential (primary) hypertension Code(s): I10 - Essential (primary) hypertension Status: Chronic Assessment and Plan: Last blood pressure 135/64 -continue metoprolol (9) DVT (deep venous thrombosis): Qualifiers: DVT location: lower extremity Affected thrombotic vein of extremity: unspecified vein of extremity Chronicity: chronic Laterality: unspecified laterality Qualified Code(s): I82.509 - 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 (10) UTI (urinary tract infection): Code(s): N39.0 - Urinary tract infection, site not specified Status: Acute Assessment and Plan: Urine culture with Ecoli -transitioned to Augmentin when the sensitivities came back resistant to ceftriaxone DS: Summary Hospital Course Hospital Course: Patient is a 70-year-old female with a past medical history of atrial fibrillation, CHF, COPD, it hypertension who presented emergency room for abdominal pain with nausea and vomiting. X-ray at the facility showed large colonic volvulus. CT of the abdomen pelvis here showed distended transverse colon without focal transition point identified consistent with adynamic ileus. Vitals in the ER were temperature 98.3? F pulse, respiratory rate 18, blood pressure 126/86, pulse ox 98 on room air. BMP showed anemia with hemoglobin 9.0 and hematocrit 31.1. Showed hyperkalemia with a potassium was 6.0 and creatinine 1.3. Patient was given Kayexalate and had no bowel issues with his. UA consistent with UTI. Patient was admitted to the hospitalist service and observed. She improved with conservative measures and was eating and drinking the day of discharge with bowel movements. Her urine c
[2021-05-14] MEDS: ATORVASTATIN 10 MG TABLET PO (16:47)
== END 2021-05-14 17:10 | DRG 388 ==
LOC: ANHED 08:50 → ANH2MED 09:10
PROVIDERS: Emergency Medicine; Nurse Practitioner; Physician Assistant; Admitting Provider Family Medicine; Emergency Provider Emergency Medicine; PCP Internal Medicine Infectious Disease; Visit Provider Internal Medicine
DX: K56.7 Ileus, unspecified (principal); I50.33 Acute on chronic diastolic (congestive) heart failure; E66.2 Morbid (severe) obesity with alveolar hypoventilation; Z68.43 Body mass index [BMI] 50.0-59.9, adult; J96.12 Chronic respiratory failure with hypercapnia; J96.11 Chronic respiratory failure with hypoxia; I48.20 Chronic atrial fibrillation, unspecified; I82.509 Chronic embolism and thrombosis of unspecified deep veins of unspecified lower extremity; N39.0 Urinary tract infection, site not specified; I11.0 Hypertensive heart disease with heart failure; E87.5 Hyperkalemia; B96.20 Unspecified Escherichia coli [E. coli] as the cause of diseases classified elsewhere; I87.2 Venous insufficiency (chronic) (peripheral); J44.9 Chronic obstructive pulmonary disease, unspecified; D64.9 Anemia, unspecified; Z79.01 Long term (current) use of anticoagulants; Z79.899 Other long term (current) drug therapy; Z87.891 Personal history of nicotine dependence
CPT/HCPCS: 36415; 51701; 74019; 74177; 80048; 80053; 81001; 82607; 82746; 82948; 83605; 83690; 83735; 84443; 85025; 85027; 87077; 87086; 87088; 87186; 93005; 94640; 96361; 96365; 96374; 96375; 99285; A9270; G0378; J0696; J1815; J2405; J7030; Q9967

== ENCOUNTER 2021-05-24 21:50 | Emergency (ER) | payer OTHER, MEDICARE, MEDICAID, SELFPAY ==
[2021-05-24] VITALS (11 sets, daily range): BP systolic 96–144; BP diastolic 79–105; PULSE 97–116; RESP 16–22; TEMP 36.1; O2SAT 87–99
--- NOTE | ~2021-05-24 | XR_ITS ---
EXAMINATION: XR chest 1V INDICATION: Pain after fall TECHNIQUE: The chest is obtained. COMPARISON: 08/16/2020 FINDINGS: There are small chronic pleural effusions. There are patchy bilateral airspace opacities. C ardiomegaly is noted. There is no pneumothorax. A chronic fracture of the proximal left humerus is no andrea. IMPRESSION: 1. Small pleural effusions. 2. Cardiomegaly. 3. Bilateral airspace opacities which may reflect atelectasis versus pneumonia versus pulmonary edema . Reviewed, dictated and finalized at location A. IMPRESSION: 1. Small pleural effusions. 2. Cardiomegaly. 3. Bilateral airspace opacities which may reflect atelectasis versus pneumonia versus pulmonary edema.
--- NOTE | ~2021-05-24 | CT_ITS ---
EXAMINATION: CT brain wo con INDICATION: Transient alteration of awareness COMPARISON: 04/02/2020 TECHNIQUE: Standard unenhanced head CT. The dose-length product (DLP) was 681.00 mGy-cm. The mA was a djusted according to patient size. Iterative reconstruction technique was employed. FINDINGS: Motion artifact slightly limits the examination. There is no acute intraparenchymal hemorrh age. No evidence of mass lesion. No evidence of acute infarction. There is moderate periventricular a nd subcortical hypodensity probably related to small vessel ischemic disease. There is mild prominenc e of the sulci and ventricles related to cerebral atrophy. Intracranial calcified cerebral atheroscle rosis is noted. There are no extra-axial collections. There is no mass effect or midline shift. The o rbits and soft tissues are unremarkable. There is partial opacification of the right mastoid air cell s. IMPRESSION: 1. No acute intracranial abnormality. 2. Age related findings. Reviewed, dictated and finalized at location A.
--- NOTE | ~2021-05-24 | XR_ITS ---
EXAMINATION: XR femur LT min 2V INDICATION: Left leg pain, initial encounter TECHNIQUE: Two views of the left femur are obtained on four radiographs. COMPARISON: None available FINDINGS: There is an acute, traumatic, closed, oblique fracture in the proximal shaft of the left fe mur. The distal fracture fragment is laterally displaced by approximately one shaft width and slightl y overriding. Soft tissue swelling surrounds the fracture. Alignment at the knee appears normal. IMPRESSION: 1. Acute fracture in the proximal shaft of the left femur. Reviewed, dictated and finalized at location A.
--- NOTE | ~2021-05-24 | XR_ITS ---
EXAMINATION: XR hip LT 2V w AP pelvis INDICATION: Left hip pain after fall TECHNIQUE: AP view the pelvis and two views of the left hip are obtained on four radiographs. COMPARISON: None available FINDINGS: There is an acute, traumatic, closed, oblique fracture in the proximal shaft of the left fe mur. The distal fracture fragment is laterally displaced by one shaft width. Soft tissue swelling whitley rounds the fracture. The femoral heads are well-seated in their acetabula. No additional acute osseou s abnormality is identified. An endoluminal stent is noted in the right pelvis. IMPRESSION: 1. Acute fracture in the proximal shaft of the left femur. Reviewed, dictated and finalized at location A.
--- NOTE | 2021-05-24 22:05 | ED.FALL ---
HPI - Fall General Chief Complaint: Fall Stated Complaint: fall from norris lift Time Seen by Provider: 05/24/21 21:58 Source: patient Mode of arrival: ambulatory Limitations: no limitations History of Present Illness HPI Narrative: Patient is a 70-year-old female complaining of left thigh pain, left hip pain, 9 out of 10, aching, worse with movement and palpation after she accidentally fell off the [place] lift approximately 3 feet in height. Patient denies any head, neck, back, chest, abdomen or any other extremity pain/injury. Related Data Home Medications Medication Instructions Recorded Confirmed Eliquis 5 mg PO BID 02/12/20 05/11/21 cholecalciferol (vitamin D3) 25 mcg PO DAILY 02/12/20 05/11/21 ferrous sulfate 325 mg PO DAILY 02/12/20 05/11/21 atorvastatin 10 mg PO QPM 03/28/20 05/11/21 gabapentin 300 mg PO HS 06/10/20 05/11/21 metoprolol tartrate 25 mg PO Q12H 06/10/20 05/11/21 sodium chloride [[place] Nasal] 1 spray INTRANASAL BID PRN 07/20/20 05/11/21 [place] Nasal 1 spray EACH NARE BID PRN 08/08/20 05/11/21 furosemide [Lasix] 40 mg PO BID 08/08/20 05/11/21 Breo Ellipta 1 inh INHALATION DAILY 05/11/21 05/11/21 acetaminophen 1,000 mg PO TID 05/11/21 05/11/21 cyclobenzaprine 5 mg PO HS PRN 05/11/21 05/11/21 lisinopril 10 mg PO DAILY 05/11/21 05/11/21 promethazine 25 mg PO Q6H PRN 05/11/21 05/11/21 potassium chloride 20 meq PO BID 05/24/21 Allergies Allergy/AdvReac Type Severity Reaction Status Date / Time adhesive tape AdvReac Itching Verified 05/24/21 22:32 levofloxacin [From Levaquin] AdvReac Rash Verified 05/24/21 22:32 TaperDex Allergy Intermediate Hives Uncoded 05/11/21 11:09 Review of Systems Review of Systems: All systems reviewed & are unremarkable except as noted in HPI and below Constitutional: Constitutional: Denies body ache(s), Denies chills, Denies excessive sweating, Denies fatigue, Denies fever(s), Denies headache(s), Denies lethargy, Denies malaise, Denies weakness and Denies weight loss Eyes: Eyes: Denies blurry vision, Denies change in vision and Denies loss of vision ENT: Denies dizziness, Denies ear discharge, Denies headache(s), Denies lip swelling, Denies epistaxis, Denies nasal congestion, Denies neck pain, Denies throat swelling and Denies tongue swelling Cardiovascular: Cardiovascular: Denies chest pain, Denies chest pain at rest, Denies chest pain with activity, Denies diaphoresis, Denies rapid heart rate, Denies edema, Denies irregular heart rhythm, Denies lightheadedness, Denies palpitations, Denies dyspnea and Denies dyspnea on exertion Respiratory: Respiratory: Denies chest congestion, Denies cough, Denies hemoptysis, Denies dyspnea and Denies dyspnea on exertion Gastrointestinal: Gastrointestinal: Denies abdominal pain, Denies melena, Denies hematochezia, Denies diarrhea, Denies nausea, Denies vomiting and Denies hematemesis Musculoskeletal: Musculoskeletal: Denies abnormal gait, Denies deformity, Denies joint swelling, Denies limited range of motion, Denies neck pain and Denies numbness Neurologic: Denies Abnormal speech present, Denies abnormal gait, Denies confusion, Denies dizziness, Denies headache(s), Denies focal weakness, Denies loss of vision, Denies numbness, Denies Other visual disturbances, Denies Sensory deficit (Neuro) and Denies weakness Psychiatric: Psychiatric: Denies confusion, Denies depression, Denies auditory hallucinations, Denies homicidal ideation and Denies suicidal ideation Endocrine: Endocrine: Denies cold intolerance, Denies excessive sweating, Denies fatigue, Denies heat intolerance and Denies palpitations Hematologic/Lymphatic: Hematologic/Lymphatic: Denies easy bleeding and Denies easy bruising Allergic/Immunologic: Allergic/Immunologic: Denies lip swelling, Denies throat swelling and Denies tongue swelling PMFSH Past Medical History Medical History Asthma exacerbation in COPD Atrial fibrillation Chronic
--- NOTE | 2021-05-24 22:34 | ECG_ITS ---
Measurements Intervals [place] Rate: 110 P: NE: 0 QRS: -24 QRSD: 91 T: -6 QT: 318 QTc: 431 Interpretive Statements ATRIAL FIBRILLATION WITH RAPID VENTRICULAR RESPONSE NONSPECIFIC ST & T-WAVE ABNORMALITY- HIGH LATERAL LEADS BASELINE ARTIFACT- V4-V5 ABNORMAL ECG Electronically Signed On 05-25-2021 7:32:02 CDT by Mike Carrasquillo D.O.
[2021-05-24 22:49] LABS: Basophils Absolute Auto 0.1 K/mm3 (0.0-0.1); Basophils Percent Auto 0.3 % (0.2-1.2); Eosinophils Absolute Auto 0.2 K/mm3 (0-0.3); Eosinophils Percent Auto 1.4 % (0-4.4); Hematocrit 31.6 % (37.0-47.0); Hemoglobin 9.6 g/dL (12.0-15.0); Immature Granulocyte Absolute 0.22 K/mm3 (0.00-0.031); Immature Granulocyte Percent A 1.5 % (0-0.5); Lymphocytes Absolute Auto 1.16 K/mm3 (0.9-3.2); Lymphocytes Percent Auto 7.9 % (18.3-44.2); Mean Corpuscular HGB Conc 30.4 g/dl (32-36); Mean Corpuscular Hemoglobin 31.3 pg (26-34); Mean Corpuscular Volume 102.9 fl (80-100); Mean Platelet Volume 9.5 fl (7.4-10.4); Monocytes Absolute Auto 1.2 K/mm3 (0.1-0.6); Monocytes Percent Auto 7.9 % (2.6-8.5); Neutrophils Absolute Auto 11.9 K/mm3 (1.3-6.7); Platelet Count Result 267 k/mm3 (150-375); Red Blood Count 3.07 M/mm3 (4.2-5.4); Red Cell Distribution Width 14.6 % (11.5-14.5); White Blood Count 14.7 K/mm3 (4.5-10.0)
[2021-05-24 22:55] LABS: INR 1.1; Prothrombin Time 13.7 Seconds (11.1-14.7)
[2021-05-24 22:56] LABS: Partial Thromboplastin Time 32.6 SECONDS (22.3-36.8)
[2021-05-24 22:59] LABS: Anion Gap 6 mmol/L (8-16); Blood Urea Nitrogen 42 mg/dL (7-17); Calcium 9.8 mg/dL (8.4-10.2); Carbon Dioxide 30 mmol/L (22-30); Chloride 104 mmol/L (98-107); Estimated CRCL calculation 51 ml/min; Estimated Glomerular Filt Rate 45; Glucose 128 mg/dL (65-105); Potassium 5.7 mmol/L (3.4-5.0); Sodium 140 mmol/L (137-145)
[2021-05-24] MEDS: HYDROmorphone HCL INJ (*CRX) 1 MG/ML SYR IV PUSH (22:59)
[2021-05-24] MEDS: ONDANSETRON INJ 4 MG/2 ML VIAL IV PUSH (23:00)
[2021-05-24 23:38] LABS: Add Urine Microscopic? YES; Appearance Urine Clear (Clear); Bacteria Urine Trace /hpf; Bilirubin Urine Negative (Negative); Blood Urine Negative (Negative); Color Urine Straw (Yellow); Glucose Urine UA Negative (Negative); Ketones Urine Negative (Negative); Leukocyte Esterase Ur Negative LEU/UL (Negative); Mucus Urine Rare /lpf; Nitrate Urine Negative (Negative); Protein Urine 1+ mg/dL (Negative); Specific Grav Ur 1.014 (1.001-1.035); Urobilinogen Urine Negative mg/dL (<2.0); WBC Urine 0-3 /hpf
[2021-05-24] MEDS: dilTIAZem HCl INJ 25 MG/5 ML VIAL 10 MG IV PUSH (23:46)
[2021-05-24] MEDS: FUROSEMIDE INJ 40 MG/4 ML VIAL 20 MG IV PUSH (23:47)
--- NOTE | 2021-05-24 23:59 | PC.NURSE ---
called [facility] to request transport. ETA 0100 [facility], [facility] and [facility] not available tonight.
[2021-05-25] VITALS (83 sets, daily range): BP systolic 60–131; BP diastolic 27–115; PULSE 86–138; RESP 15–39; O2SAT 81–100
--- NOTE | 2021-05-25 | PC.NURSE ---
report to SHO Cates at [facility].
--- NOTE | 2021-05-25 02:00 | PC.NURSE ---
called [facility] for ETA update. ETA 15 minutes.
--- NOTE | 2021-05-25 02:44 | PC.NURSE ---
Addendum entered by Shabana Ham RN 05/25/21 02:50: kept repeating that year was 2024. unable to state where she was or what happened for ems or ED MD. further imaging and testing ordered. RT in room for ABG. CT scan at bedside and will take pt for head ct. Original Note: pt was transferred to ems stretcher for transport to [place] ED. pt would not answer EMS questions to determine loc, and pt speech garbled for ed md upon questioning. pt kept repeating wednesday .
[2021-05-25 03:13] LABS: Base Excess ABG -1.8 mEq/l (+/-2.0); Carboxyhemoglobin 0.3 % THb (0-2.0); Fractional Inspired Oxygen 28 %; Methemoglobin ABG 0.3 %THb (0-1.5); Oxygen Content ABG 14.5 %vol (16.0-22.0); Oxygen Saturation ABG 98.1 % (95.0-100.0); Oxyhemoglobin 97.1 % THb (90.0-100.0); PO2 ABG 138.4 mmHg (80.0-100.0); PO2 FiO2 Ratio Arterial Blood 4.94 %; Reduced Hemoglobin 2.3 %THb (0-5.0); Total Hemoglobin 10.4 g/dL (12.0-18.0)
[2021-05-25 03:15] LABS: pH ABG 7.214 (7.350-7.450)
[2021-05-25 03:16] LABS: Modified Allen's Test Pass; PCO2 ABG 68.3 mmHg (35.0-45.0); Site Drawn RIGHT RADIAL
[2021-05-25 03:17] LABS: Device NASAL CANNULA
--- NOTE | 2021-05-25 03:53 | PC.NURSE ---
pt currently on BIPAP - placed by RT. low bp. manual done 70/40. loss of IV access. Yuliet, charge nurse, attempting to place iv c US.
[2021-05-25] MEDS: SODIUM CHLORIDE 0.9% IV 1,000 ML 999 ML IV CONT (04:00)
--- NOTE | 2021-05-25 04:34 | PC.NURSE ---
OK to pause monica per ED MD d/t pt's low bp. will continue to monitor.
--- NOTE | 2021-05-25 04:52 | PC.NURSE ---
called [facility] to request transport patient to [facility]. ETA 0700
--- NOTE | 2021-05-25 04:54 | PC.NURSE ---
EMS ETA 0700. [facility] notified of changes in pt condition.
[2021-05-25] MEDS: SODIUM CHLORIDE 0.9% IV 1,000 ML 999 ML (05:44)
[2021-05-25 05:51] LABS: Alveolar/Arterial O2 Gradient 101.7 mmHg; Base Excess ABG -2.2 mEq/l (+/-2.0); Carboxyhemoglobin 0.2 % THb (0-2.0); Fractional Inspired Oxygen 40 %; Methemoglobin ABG 0.3 %THb (0-1.5); Oxygen Content ABG 13.6 %vol (16.0-22.0); Oxygen Saturation ABG 97.8 % (95.0-100.0); PCO2 ABG 54.9 mmHg (35.0-45.0); PO2 ABG 120.4 mmHg (80.0-100.0); PO2 FiO2 Ratio Arterial Blood 3.01 %; Reduced Hemoglobin 2.5 %THb (0-5.0); Total Hemoglobin 9.8 g/dL (12.0-18.0)
[2021-05-25 05:54] LABS: Device NON-INVASIVE VENT; Modified Allen's Test Pass; Site Drawn LEFT RADIAL; pH ABG 7.276 (7.350-7.450)
[2021-05-25 05:55] LABS: Non-Invasive Vent Rate 20 /MIN
[2021-05-25 05:56] LABS: Non-Invasive Expiratory Pressure 8 CMH2O; Non-Invasive Inspiratory Pressure 18 CMH2O
== END 2021-05-25 07:12 | disposition short-term general hospital (02) ==
PROVIDERS: Emergency Medicine; Emergency Provider Emergency Medicine; PCP Internal Medicine Infectious Disease
DX: S72.002A Fracture of unspecified part of neck of left femur, initial encounter for closed fracture (principal); S42.292A Other displaced fracture of upper end of left humerus, initial encounter for closed fracture; I48.91 Unspecified atrial fibrillation; E87.5 Hyperkalemia; J96.92 Respiratory failure, unspecified with hypercapnia; R00.0 Tachycardia, unspecified; D64.9 Anemia, unspecified; J44.9 Chronic obstructive pulmonary disease, unspecified; I11.0 Hypertensive heart disease with heart failure; I50.9 Heart failure, unspecified; W17.89XA Other fall from one level to another, initial encounter
CPT/HCPCS: 36415; 36600; 70450; 71045; 73502; 73552; 80048; 81001; 82375; 82805; 83050; 85025; 85610; 85730; 93005; 94002; 96365; 96366; 96375; 96376; 99291; J1170; J1940; J2405; J7030